=== PATIENT | male | born 1950 | race Caucasian/White ===

== ENCOUNTER 2022-10-03 07:46 | Outpatient (OUT) | payer MEDICARE, OTHER, SELFPAY ==
--- NOTE | 2022-10-03 07:57 | US_ITS ---
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 FINDINGS: Proximal aorta: 3.1 cm maximum diameter. Mid aorta: 2.5 cm Distal aorta: 2.4 cm Common iliac arteries: 2.4 cm diameter on right, 2.2 cm on left. IMPRESSION: 1. No aortic aneurysm. 2. 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 Electronically authenticated by: FLO VELASQUEZ Date: 10/03/2022 09:40
== END 2022-10-03 07:47 ==
LOC: US 07:51
PROVIDERS: PCP Nurse Practitioner Family; Visit Provider Nurse Practitioner Family
DX: Q25.40 Congenital malformation of aorta unspecified (principal)
CPT/HCPCS: 76706

== ENCOUNTER 2022-10-08 08:52 | Outpatient (OUT) | payer MEDICARE, OTHER, SELFPAY ==
[2022-10-08 10:30] LABS: Prostate Specific Antigen Scrn 0.74 ng/mL (<=4.00)
== END 2022-10-08 08:53 | disposition home or self-care (01) ==
LOC: LAB 08:53
PROVIDERS: PCP Nurse Practitioner Family; Visit Provider Nurse Practitioner Family
DX: Z12.5 Encounter for screening for malignant neoplasm of prostate (principal)
CPT/HCPCS: 36415; G0103

== ENCOUNTER 2022-10-23 08:10 | Outpatient (OUT) | payer MEDICARE, OTHER, SELFPAY ==
[2022-10-23 09:02] LABS: Basophils Absolute Auto 0.1 10^3/uL (0.0-0.1); Eosinophils Absolute Auto 0.1 10^3/uL (0.0-0.7); Eosinophils Percent Auto 1.9 % (0.9-7.0); Hematocrit 44.8 % (42.0-54.0); Hemoglobin 15.4 g/dL (14.0-18.0); Immature Granulocytes Abs Auto 0.04 10^3/uL (0.00-0.03); Immature Granulocytes Pct Auto 0.6 % (0.0-0.5); Lymphocytes Absolute Auto 2.3 10^3/uL (1.2-3.8); Lymphocytes Percent Auto 33.6 % (20.5-60.0); Mean Corpuscular HGB Conc 34.4 g/dL (29.9-35.2); Mean Corpuscular Hemoglobin 28.5 pg (25.9-34.0); Mean Platelet Volume 8.8 fL (9.5-13.5); Monocytes Absolute Auto 0.4 10^3/uL (0.3-0.8); Monocytes Percent Auto 6.3 % (1.7-12.0); Neutrophils Absolute Auto 3.9 10^3/uL (1.4-6.5); Neutrophils Percent Auto 56.6 % (43.0-75.0); Platelet Count 126 10^3/uL (150-450); Red Cell Distribution Width 13.6 % (11.0-15.0); White Blood Count 6.8 10^3/uL (4.0-11.0)
[2022-10-23 10:39] LABS: Creatinine Urine Random 118.16 mg/dL (20.00-300.00); Microalbumin Urine Random <1.3 mg/dL (<=30.0)
[2022-10-23 10:55] LABS: Alanine Aminotransferase 41 U/L (16-63); Albumin Globulin Ratio 1.3; Albumin Level 4.2 g/dL (3.4-5.0); Alkaline Phosphatase 79 U/L (46-116); Anion Gap 14.6; Aspartate Amino Transferase 28 U/L (15-37); BUN Creatinine Ratio 14.3; Bilirubin Total 1.1 mg/dL (0.2-1.0); Calcium 8.9 mg/dL (8.5-10.1); Carbon Dioxide 24.7 mmol/L (21.0-32.0); Chloride 105 mmol/L (98-107); Estimated GFR (African America >60 (>=60); Estimated GFR (Non-African Ame >60 (>=60); Globulin 3.3 g/dL; Glucose 105 mg/dL (74-106); Potassium 4.3 mmol/L (3.5-5.1); Sodium 140 mmol/L (136-145); Total Protein 7.5 g/dL (6.4-8.2)
[2022-10-23 11:03] LABS: Chol HDL Ratio 3.5; Cholesterol 135 mg/dL (<=200); HDL Cholesterol 39 mg/dL (40-60); Thyroid Stimulating Hormone 2.064 uIU/mL (0.358-3.740); Triglycerides 189 mg/dL (<=150); VLDL CHOLESTEROL 37.8 mg/dL
[2022-10-24 05:08] LABS: Vitamin B12 576 pg/mL (232-1245)
== END 2022-10-23 08:11 | disposition home or self-care (01) ==
LOC: LAB 08:12
PROVIDERS: PCP Nurse Practitioner Family; Visit Provider Nurse Practitioner Family
DX: R73.03 Prediabetes (principal); E78.2 Mixed hyperlipidemia
CPT/HCPCS: 36415; 80053; 80061; 82043; 82570; 82607; 82746; 84443; 85025

== ENCOUNTER 2023-01-15 09:02 | Outpatient (OUT) | payer MEDICARE, OTHER, SELFPAY ==
--- NOTE | 2023-01-15 09:11 | ECG_ITS ---
The [facility] Test Date: 2023-01-15 Pat Name: RACHEL HENRY Department: Room: - Gender: Male Manager Reading: : 1950 Requested By: TANNER HUERTA Order Number: [id number] Reading MD: SUZIE MCKEON Measurements Intervals [place] Rate: 62 P: 0 KS: 168 QRS: 44 QRSD: 103 T: 31 QT: 386 QTc: 393 Interpretive Statements SINUS RHYTHM No previous ECG available for comparison Electronically Signed On 01-16-2023 6:50:50 EDT by SUZIE MCKEON
--- NOTE | 2023-01-15 10:04 | P.GSHP_ITS ---
History of Present Illness History of Present Illness Chief complaint: BPH W/ OBSTRUCTION Narrative: Patient presents for preadmission testing. Patient reports incomplete bladder emptying, frequency and urgency with urination. He denies hematuria, dysuria, fever, nausea, vomiting, or any other complaints. Review of Systems ROS Narrative REVIEW OF SYSTEMS: Negative except as stated in HPI, ten or more systems reviewed. Constitutional: No fever , chills, weakness ENT: No sore throat or epistaxis Cardiovascular: No edema, chest pain, or palpitations Respiratory: Admits to dyspnea on exertion Musculoskeletal: No joint pain or swelling Gastrointestinal: No abdominal pain, constipation, diarrhea, or vomiting Genitourinary: No dysuria or hematuria Neurological: No numbness, tingling, weakness, or headache Psychiatric: No mood changes PFSH PFSH Medical History (Updated 01/15/23 @ 09:34 by Lorena Xie NP) Anxiety ?F41.9 - Anxiety disorder, unspecified (ICD-10) Arthritis ?M19.90 - Unspecified osteoarthritis, unspecified site (ICD-10) Asthma ?J45.909 - Unspecified asthma, uncomplicated (ICD-10) Back pain ?M54.9 - Dorsalgia, unspecified (ICD-10) BPH (benign prostatic hyperplasia) ?N40.0 - Benign prostatic hyperplasia without lower urinary tract symptoms (ICD-10) BPH with obstruction/lower urinary tract symptoms ?N40.1 - Benign prostatic hyperplasia with lower urinary tract symptoms (ICD- 10) ?N13.8 - Other obstructive and reflux uropathy (ICD-10) COVID-19 ?U07.1 - COVID-19 (ICD-10) Depression ?F32.A - Depression, unspecified (ICD-10) Dyspnea on exertion ?R06.09 - Other forms of dyspnea (ICD-10) High cholesterol ?E78.00 - Pure hypercholesterolemia, unspecified (ICD-10) Neck pain ?M54.2 - Cervicalgia (ICD-10) Prediabetes ?R73.03 - Prediabetes (ICD-10) Sleep apnea ?G47.30 - Sleep apnea, unspecified (ICD-10) Surgical History (Updated 01/15/23 @ 09:34 by Lorena Xie NP) H/O uvulectomy ?Z90.89 - Acquired absence of other organs (ICD-10) History of arthroplasty of knee ?Z96.659 - Presence of unspecified artificial knee joint (ICD-10) History of arthroscopy of knee ?Z98.890 - Other specified postprocedural states (ICD-10) History of cataract extraction ?Z98.49 - Cataract extraction status, unspecified eye (ICD-10) History of colonoscopy ?Z98.890 - Other specified postprocedural states (ICD-10) History of nasal septoplasty ?Z98.890 - Other specified postprocedural states (ICD-10) History of surgical removal of lesion ?Z98.890 - Other specified postprocedural states (ICD-10) ?Z87.2 - Personal history of diseases of the skin and subcutaneous tissue (ICD-10) History of tonsillectomy ?Z90.89 - Acquired absence of other organs (ICD-10) Family History (Updated 01/15/23 @ 09:34 by Lorena Xie NP) Other Family history of bone cancer Family history of breast cancer Family history of heart disease Family history of hypertension Family history of myocardial infarction Social History (Updated 01/15/23 @ 09:27 by Lorena Xie NP) Within the past year, how often did you have a drink containing alcohol: never Score interpretation: A score less than 4 is consistent with normal alcohol consumption. Smoking status: Former smoker Non-prescribed substance use: denies use Highest level of school completed/degree received: high school graduate Meds Home Medications and Allergies Home Medications Medication Instructions Recorded Confirmed Type acetaminophen 325 mg tablet 650 mg PO Q6H PRN pain 01/15/23 01/15/23 History (Tylenol) albuterol sulfate 90 mcg/actuation 2 inh inhalation Q4H PRN shortness 01/15/23 01/15/23 History aerosol inhaler (ProAir HFA) of breath or wheezing ascorbic acid (vitamin C) 1,000 mg 1 g PO DAILY 01/15/23 01/15/23 History capsule atorvastatin 80 mg tablet 80 mg PO DAILY 01/15/23 01/15/23 History buspirone 30 mg tablet 30 mg PO BID 01/15/23 01/15/23 History cholecalciferol (vitamin D3) 125 125 mcg PO DAILY 01/15/23 01/15/23 History mcg (5,000 unit) capsule ezetimibe 10 mg tablet 10 mg PO DAILY 01/15/23 01/15/23 History finasteride 5 mg tablet 5 mg PO DAILY 01/15/23 01/15/23 History fluticasone furoate 100 1 inh inhalation DAILY 01/15/23 01/15/23 History mcg-vilanterol 25 mcg/dose inhalation powder (Breo Ellipta) ibuprofen 400 mg tablet (IBU) 400 mg PO TID-QID PRN pain 01/15/23 01/15/23 History sertraline 100 mg tablet 100 mg PO DAILY 01/15/23 01/15/23 History tamsulosin 0.4 mg capsule (Flomax) 0.4 mg PO DAILY 01/15/23 01/15/23 History vitamin E 670 mg (1,000 unit) 670 mg PO DAILY 01/15/23 01/15/23 History capsule Allergies Allergy/AdvReac Type Severity Reaction Status Date / Time doxazosin [From Cardura] Allergy lip Verified 01/15/23 09:25 swelling Exam Narrative Exam Narrative: Constitutional: Awake, alert, comfortable, well-appearing, nontoxic, interactive, vital signs as charted Head: Normocephalic, atraumatic Neck: Supple, normal appearance, normal range of motion, no meningeal signs, no lymphadenopathy Respiratory: No respiratory distress, breath sounds clear, Pursed lip breathing noted Cardiovascular: Regular rate and rhythm, strong and regular heart tones Abdomen: Nontender, normal bowel sounds, soft, no CVA tenderness Musculoskeletal: Normal gait, no swelling or edema Skin: No rashes or induration, no lesions, only visible skin inspected Neuro: No neurological deficits, normal sensation Psychiatric: Oriented ?3, normal affect Assessment and Plan Assessment and Plan (1) BPH with obstruction/lower urinary tract symptoms: Plan Cystoscopy, transurethral resection of the prostate scheduled with Dr. Sinha 02/07/2023.
[2023-01-15 10:11] LABS: Basophils Absolute Auto 0.1 10^3/uL (0.0-0.1); Basophils Percent Auto 1.2 % (0.2-2.0); Eosinophils Absolute Auto 0.2 10^3/uL (0.0-0.7); Eosinophils Percent Auto 2.5 % (0.9-7.0); Hematocrit 43.7 % (42.0-54.0); Hemoglobin 14.9 g/dL (14.0-18.0); Immature Granulocytes Abs Auto 0.07 10^3/uL (0.00-0.03); Lymphocytes Absolute Auto 2.3 10^3/uL (1.2-3.8); Mean Corpuscular HGB Conc 34.1 g/dL (29.9-35.2); Mean Corpuscular Hemoglobin 29.1 pg (25.9-34.0); Mean Corpuscular Volume 85.4 fL (80.0-94.0); Mean Platelet Volume 9.2 fL (9.5-13.5); Monocytes Absolute Auto 0.5 10^3/uL (0.3-0.8); Monocytes Percent Auto 7.1 % (1.7-12.0); Neutrophils Absolute Auto 4.2 10^3/uL (1.4-6.5); Neutrophils Percent Auto 57.2 % (43.0-75.0); Platelet Count 126 10^3/uL (150-450); Red Blood Count 5.12 10^6/uL (4.70-6.10); Red Cell Distribution Width 13.4 % (11.0-15.0); White Blood Count 7.3 10^3/uL (4.0-11.0)
[2023-01-15 10:21] LABS: INR 1.03; Prothrombin Time 10.9 sec (9.0-11.6)
[2023-01-15 11:52] LABS: Calcium 8.7 mg/dL (8.5-10.1); Carbon Dioxide 25.9 mmol/L (21.0-32.0); Chloride 104 mmol/L (98-107); Estimated GFR (African America >60 (>=60); Estimated GFR (Non-African Ame >60 (>=60); Glucose 100 mg/dL (74-106); Potassium 3.9 mmol/L (3.5-5.1); Sodium 139 mmol/L (136-145)
== END 2023-01-15 09:03 | disposition home or self-care (01) ==
LOC: PST 09:06
PROVIDERS: PCP Nurse Practitioner Family; Visit Provider Urology
DX: Z01.810 Encounter for preprocedural cardiovascular examination (principal); Z01.812 Encounter for preprocedural laboratory examination; N40.1 Benign prostatic hyperplasia with lower urinary tract symptoms; J45.909 Unspecified asthma, uncomplicated; F32.A Depression, unspecified; M19.90 Unspecified osteoarthritis, unspecified site; E78.5 Hyperlipidemia, unspecified; F41.9 Anxiety disorder, unspecified
CPT/HCPCS: 80048; 85025; 85610; 85730; 93005; G0463

== ENCOUNTER 2023-01-25 09:48 | Outpatient (OUT) | payer MEDICARE, OTHER, SELFPAY ==
--- NOTE | 2023-01-25 | US_ITS ---
The [address] [address] Patient Name: RACHEL HENRY MRN: [id number] date: 1950 Sex: M Assigned Patient Location: US Current Patient Location: US Accession/Order Number: [id number] Exam Date: 01/25/2023 10:07 Report Date: 01/25/2023 15:02 At the request of: NON-STAFF PHYSICIAN Procedure: US abdomen limited EXAMINATION: US abdomen limited HISTORY: D69.6 COMPARISON: No relevant comparison available. TECHNIQUE: Transabdominal evaluation of the right upper quadrant. FINDINGS: LIVER: Several small hypoechoic areas near gallbladder fossa likely representing areas of fat sparing. Color Doppler demonstrates patent hepatic veins. PORTAL VEIN: Duplex Doppler demonstrates normal hepatopetal flow pattern with flow velocity averaging 24 cm/s. GALLBLADDER: Wall thickness is upper limits of normal, 3 mm. No visible gallstones or pericholecystic free fluid. Negative sonographic Arias's sign. BILIARY: No abnormal dilation or stones. Common bile duct diameter is within normal limits. PANCREASE: No visible mass, abnormal atrophy, or duct dilation. SPLEEN: Normal size, contour, and echotexture. KIDNEYS: 5.1 cm cyst within superior pole left kidney favoring benign etiology. Unremarkable right kidney. No hydronephrosis. No visible mass or stones. US/US abdomen limited IMPRESSION: 1. No suspicious findings within the right or left upper quadrant with specific attention to the liver and spleen. Electronically authenticated by: FLO VELASQUEZ Date: 01/25/2023 15:02
== END 2023-01-25 09:49 | disposition home or self-care (01) ==
PROVIDERS: PCP Nurse Practitioner Family
DX: D69.6 Thrombocytopenia, unspecified (principal); N28.1 Cyst of kidney, acquired
CPT/HCPCS: 76705

== ENCOUNTER 2023-03-14 12:33 | Outpatient (OUT) | payer MEDICARE, OTHER, SELFPAY ==
[2023-03-14 13:15] LABS: Basophils Absolute Auto 0.1 10^3/uL (0.0-0.1); Basophils Percent Auto 0.5 % (0.2-2.0); Eosinophils Absolute Auto 0.1 10^3/uL (0.0-0.7); Eosinophils Percent Auto 0.9 % (0.9-7.0); Hematocrit 39.7 % (42.0-54.0); Hemoglobin 13.4 g/dL (14.0-18.0); Immature Granulocytes Abs Auto 0.26 10^3/uL (0.00-0.03); Immature Granulocytes Pct Auto 2.2 % (0.0-0.5); Lymphocytes Absolute Auto 2.2 10^3/uL (1.2-3.8); Lymphocytes Percent Auto 18.9 % (20.5-60.0); Mean Corpuscular HGB Conc 33.8 g/dL (29.9-35.2); Mean Corpuscular Hemoglobin 28.6 pg (25.9-34.0); Mean Corpuscular Volume 84.8 fL (80.0-94.0); Mean Platelet Volume 8.8 fL (9.5-13.5); Monocytes Percent Auto 8.4 % (1.7-12.0); Neutrophils Percent Auto 69.1 % (43.0-75.0); Platelet Count 165 10^3/uL (150-450); Red Blood Count 4.68 10^6/uL (4.70-6.10); Red Cell Distribution Width 13.3 % (11.0-15.0); White Blood Count 11.6 10^3/uL (4.0-11.0)
--- NOTE | 2023-03-14 13:24 | P.GSHP_ITS ---
History of Present Illness History of Present Illness Chief complaint: bph Narrative: Patient presents for preadmission testing. Patient reports incomplete bladder emptying, frequency and urgency with urination. He denies hematuria, dysuria, fever, nausea, vomiting, or any other complaints. The patient was diagnosed with thrombocytopenia since his last visit here on 01/15/2023, he has been cleared by hematology. The patient had a positive home COVID test on 03/07/2023 with symptoms of cough and congestion as well as fatigue. The patient states the symptoms have now resolved. Review of Systems ROS Narrative REVIEW OF SYSTEMS: Negative except as stated in HPI, ten or more systems reviewed. Constitutional: No fever , chills, weakness ENT: No sore throat or epistaxis Cardiovascular: No edema, chest pain, or palpitations Respiratory: Chronic dyspnea on exertion Musculoskeletal: No joint pain or swelling Gastrointestinal: No abdominal pain, constipation, diarrhea, or vomiting Genitourinary: No dysuria or hematuria Neurological: No numbness, tingling, weakness, or headache Psychiatric: No mood changes PFSH PFSH Medical History (Updated 03/14/23 @ 13:21 by Lorena Xie NP) Anxiety ?F41.9 - Anxiety disorder, unspecified (ICD-10) Arthritis ?M19.90 - Unspecified osteoarthritis, unspecified site (ICD-10) Asthma ?J45.909 - Unspecified asthma, uncomplicated (ICD-10) Back pain ?M54.9 - Dorsalgia, unspecified (ICD-10) BPH (benign prostatic hyperplasia) ?N40.0 - Benign prostatic hyperplasia without lower urinary tract symptoms (ICD-10) BPH with obstruction/lower urinary tract symptoms ?N40.1 - Benign prostatic hyperplasia with lower urinary tract symptoms (ICD- 10) ?N13.8 - Other obstructive and reflux uropathy (ICD-10) COVID-19 ?U07.1 - COVID-19 (ICD-10) COVID-19 (03/07/23) ?U07.1 - COVID-19 (ICD-10) Depression ?F32.A - Depression, unspecified (ICD-10) Dyspnea on exertion ?R06.09 - Other forms of dyspnea (ICD-10) High cholesterol ?E78.00 - Pure hypercholesterolemia, unspecified (ICD-10) Neck pain ?M54.2 - Cervicalgia (ICD-10) Prediabetes ?R73.03 - Prediabetes (ICD-10) Sleep apnea ?G47.30 - Sleep apnea, unspecified (ICD-10) Thrombocytopenia ?D69.6 - Thrombocytopenia, unspecified (ICD-10) Surgical History (Updated 01/15/23 @ 09:34 by Lorena Xie NP) H/O uvulectomy ?Z90.89 - Acquired absence of other organs (ICD-10) History of arthroplasty of knee ?Z96.659 - Presence of unspecified artificial knee joint (ICD-10) History of arthroscopy of knee ?Z98.890 - Other specified postprocedural states (ICD-10) History of cataract extraction ?Z98.49 - Cataract extraction status, unspecified eye (ICD-10) History of colonoscopy ?Z98.890 - Other specified postprocedural states (ICD-10) History of nasal septoplasty ?Z98.890 - Other specified postprocedural states (ICD-10) History of surgical removal of lesion ?Z98.890 - Other specified postprocedural states (ICD-10) ?Z87.2 - Personal history of diseases of the skin and subcutaneous tissue (ICD-10) History of tonsillectomy ?Z90.89 - Acquired absence of other organs (ICD-10) Family History (Updated 01/15/23 @ 09:34 by Lorena Xie NP) Other Family history of bone cancer Family history of breast cancer Family history of heart disease Family history of hypertension Family history of myocardial infarction Social History (Updated 01/15/23 @ 09:27 by Lorena Xie NP) Within the past year, how often did you have a drink containing alcohol: never Score interpretation: A score less than 4 is consistent with normal alcohol consumption. Smoking status: Former smoker Non-prescribed substance use: denies use Highest level of school completed/degree received: high school graduate Meds Home Medications and Allergies Home Medications Medication Instructions Recorded Confirmed Type acetaminophen 325 mg tablet 650 mg PO Q6H PRN pain 01/15/23 01/15/23 History (Tylenol) albuterol sulfate 90 mcg/actuation 2 inh inhalation Q4H PRN shortness 01/15/23 01/15/23 History aerosol inhaler (ProAir HFA) of breath or wheezing ascorbic acid (vitamin C) 1,000 mg 1 g PO DAILY 01/15/23 03/14/23 History capsule atorvastatin 80 mg tablet 80 mg PO DAILY 01/15/23 01/15/23 History buspirone 30 mg tablet 30 mg PO BID 01/15/23 01/15/23 History cholecalciferol (vitamin D3) 125 125 mcg PO DAILY 01/15/23 03/14/23 History mcg (5,000 unit) capsule ezetimibe 10 mg tablet 10 mg PO DAILY 01/15/23 01/15/23 History finasteride 5 mg tablet 5 mg PO DAILY 01/15/23 01/15/23 History fluticasone furoate 100 1 inh inhalation DAILY 01/15/23 01/15/23 History mcg-vilanterol 25 mcg/dose inhalation powder (Breo Ellipta) ibuprofen 400 mg tablet (IBU) 400 mg PO TID-QID PRN pain 01/15/23 01/15/23 History sertraline 100 mg tablet 100 mg PO DAILY 01/15/23 01/15/23 History tamsulosin 0.4 mg capsule (Flomax) 0.4 mg PO DAILY 01/15/23 01/15/23 History vitamin E 670 mg (1,000 unit) 670 mg PO DAILY 01/15/23 03/14/23 History capsule Allergies Allergy/AdvReac Type Severity Reaction Status Date / Time doxazosin [From Cardura] Allergy lip Verified 01/15/23 09:25 swelling Exam Narrative Exam Narrative: Constitutional: Awake, alert, comfortable, well-appearing, nontoxic, interactive, vital signs as charted Head: Normocephalic, atraumatic Neck: Supple, normal appearance, normal range of motion, no meningeal signs, no lymphadenopathy Respiratory: No respiratory distress, breath sounds clear, Pursed lip breathing noted, No tachypnea Cardiovascular: Regular rate and rhythm, strong and regular heart tones Abdomen: Nontender, normal bowel sounds, soft, no CVA tenderness Musculoskeletal: Normal gait, no swelling or edema Skin: No rashes or induration, no lesions, only visible skin inspected Neuro: No neurological deficits, normal sensation Psychiatric: Oriented ?3, normal affect Assessment and Plan Assessment and Plan (1) BPH with obstruction/lower urinary tract symptoms: Plan Cystoscopy, transurethral resection of the prostate scheduled with Dr. Sinha 03/21/2023.
[2023-03-14 13:33] LABS: INR 1.02; Partial Thromboplastin Time 33.4 sec (22.3-36.2); Prothrombin Time 10.8 sec (9.0-11.6)
[2023-03-14 13:50] LABS: Anion Gap 12.7; BUN Creatinine Ratio 12.6; Calcium 8.5 mg/dL (8.5-10.1); Chloride 103 mmol/L (98-107); Estimated GFR (African America >60 (>=60); Estimated GFR (Non-African Ame >60 (>=60); Glucose 96 mg/dL (74-106); Potassium 3.7 mmol/L (3.5-5.1); Sodium 138 mmol/L (136-145)
== END 2023-03-14 12:34 | disposition home or self-care (01) ==
LOC: PST 12:34
PROVIDERS: PCP Nurse Practitioner Family; Visit Provider Urology
DX: Z01.812 Encounter for preprocedural laboratory examination (principal); N40.1 Benign prostatic hyperplasia with lower urinary tract symptoms
CPT/HCPCS: 80048; 85025; 85610; 85730; G0463

== ENCOUNTER 2023-04-03 12:20 | Outpatient (OUT) | payer MEDICARE, OTHER, SELFPAY ==
--- OUTSIDE RECORDS SUMMARY | 2023-04-03 12:39 | XMS_ITS | CCD ---
Author Name Unknown Address [address] [facility] [address] [facility] [address] [place] [address] Organization [facility] Care Team Providers Care Manganese Breaker Name Role Phone REQUEST, DR NONE LISTED Attending Unavaila ble REQUEST, NONE LISTED Consulting Unavaila ble REQUEST, NONE LISTED Admitting Unavaila ble KAPFORREST, PATRICA Primary Care Unavailable PATRICA CRUZ Attending Unavailable KAPPATRICA CLAYTON Primary Care Unavailable ANTHONY, PATRICA Admitting Unavailable MIGUEL WESTFALL, DR WILL Carmichael Consulting Unavailabl e MIGUEL WESTFALL, DR WILL Carmichael Admitting Unavailabl e ANTHONY, PATRICA Primary Care Unavailable MIGUEL WESTFALL, DR WILL Carmichael Attending Unavailabl e KAPLE, PATRICA Consulting Unavailable KAPFORREST, PATRICA Primary Care Unavailable KAPFORREST, PATRICA Admitting Unavailable KAPPATRICA CLAYTON Attending Unavailable REQUEST, NONE LISTED Admitting Unavaila ble REQUEST, NONE LISTED Attending Unavaila ble REQUEST, NONE LISTED Consulting Unavaila ble ANTHONY, PATRICA Primary Care Unavailable PATRICA CRUZ Primary Care Physician [phone] Patrica Cruz Unavailable KapNimisha claytonPatrica Unavailable Anthony, GUICHO Patrica Primary Care Provider MD Genaro Sheldon Attending Provider Genaro Sheldon Attending Unavailable Genaro Sheldon Admitting Unavailable Patrica Cruz Primary Care Unavailable Unavailable Primary Care Provider Unavailabl e BERNARDINO CLIFTONRA Referring Unavailable BERNARDINO CLIFTONRA Attending Unavailable KESHA CLIFTON Attending Unavailable Elia HUERTA Attending Unavailable Elia HUERTA Attending Unavailable Elia HUERTA Attending Unavailable Elia HUERTA Attending Unavailable Elia HUERTA Attending Unavailable Elia HUERTA Admitting Unavailable Elia HUERTA Referring Unavailable Elia HUERTA Attending Unavailable Elia HUERTA Attending Unavailable Allergies Allergy Classification Reported Allergen(s) Allergy Type Date of Onset Reaction(s) Facility Adrenergic Antagonists (2 sources) Doxazosin Drug Allergy 5 [facility] Repository (19 sources) Doxazosin; Translations: [doxazosin] Drug Allergy 3 Anaphylaxis (disorder), anaphylaxis [employer] Other Medications Current Medications Medication Drug Class(es) Dates Sig (Normalized) Sig (Original) acetaminophen 500 mg oral tablet (17 sources) Start: 06-26-2019 take 1 mg by mouth every six hours acetaminophen 500 mg Tab mg tab(s), Oral, q6hr, Refills(s) 0 Start Date: 06/26/19 Status: Ordered take 1 capsule by mouth every si x hours Acetaminophen 500 MG 1 capsule as needed Orally every 6 hrs Active Comment on above: Take 500 mg by mouth every 6 hours as needed. [id number] actuat albuterol 0.09 mg/actuat metered dose inhaler (14 sources) beta2-Adrenergic Agonist Albuter ol Sulfate HFA 108 (90 Base) MCG/ACT TAKE 2 PUFFS NEEDED EVERY 4 HOUR FOR SHORTNESS OF BREATH, WHEEZING, OR COUGH for 30 Active Albuterol Sulfat e HFA 108 (90 Base) MCG/ACT TAKE 2 PUFFS NEEDED EVERY 4 HOUR FOR SHORTNESS OF BREATH, WHEEZING, OR COUGH for 30 Active albuterol HFA (V ENTOLIN HFA) 90 mcg/actuation inhaler Inhale 2 Puffs as instructed. 0 Active Albuterol Sulfat e HFA 108 (90 Base) MCG/ACT TAKE 2 PUFFS NEEDED EVERY 4 HOUR FOR SHORTNESS OF BREATH, WHEEZING, OR COUGH for 30 Active Ventolin HFA prn Active Comment on above: Inhale 2 Puffs as in structed. atorvastatin 80 mg oral tablet (17 sources) HMG-CoA Reductase Inhibitor Start: 06-26-2019 take 1 tablet by mouth once daily atorvastatin 80 mg Tab 80 mg = 1 tab(s), Oral, Daily, # 30 tab(s), Refills(s) 0 Start Date: 06/26/19 Status: Ordered Comment on above: Take 80 mg by mouth once daily. azithromycin 250 mg oral tablet (2 sources) Macrolide Antimicrobial Start: 03-19-2023 Zithromax Z-Arya 250 MG 2 tablets on the first day, then 1 tablet daily for 4 days Orally Once a day for 5 day(s) Mar, Active BIPAP Machine Auto Pap Peak 20 PS 4 min 8 (11 sources) Start: 10-27-2013 BIPAP Machine Auto Pap Peak 20 PS 4 min 8 as directed nightly for Download 1 month, fax to office Oct, Active Breo Ellipta 200 mcg-25 mcg/inh inhalation powder (3 sources) Start: 06-26-2019 take 1 puff(s) by inhalation once daily Breo Ellipta 200 mcg-25 mcg/inh inhalation powder puff(s), Inhalation, Daily, Refill(s) 0 Start Date: 06/26/19 Status: Ordered busPIRone hydrochloride 30 mg oral tablet (17 sources) Start: 08-14-2016 take 1 tablet by mouth twice daily busPIRone 30 mg oral tablet 30 mg = 1 tab(s), Oral, BID, # 60 tab(s), Refills(s) 0 Start Date: 06/26/19 Status: Ordered take 1 tablet by mouth once abel y busPIRone HCl 30 mg tablet Take 30 mg by mouth once daily. 0 Active Comment on above: Take 30 mg by mouth once daily. ezetimibe 10 mg oral tablet (17 sources) Dietary Cholesterol Absorption Inhibitor Start: 06-26-2019 take 1 tablet by mouth once daily Zetia 10 mg Tab 10 mg = 1 tab(s), Oral, Daily, # 30 tab(s), Refills(s) 0 Start Date: 06/26/19 Status: Ordered Comment on above: Take 10 mg by mouth once daily. ferrous sulfate 325 mg oral tablet (6 sources) Start: 06-26-2019 take 1 mg by mouth three times daily ferrous sulfate 325 mg Tab mg tab(s), Oral, TID, Refills(s) 0 Start Date: 06/26/19 Status: Ordered take 1 tablet by mouth once abel y ferrous sulfate 325 mg (65 mg iron) tablet Take 325 mg by mouth once daily. 0 Active Comment on above: Take 325 mg by mouth once daily. finasteride 5 mg oral tablet (17 sources) 5-alpha Reductase Inhibitor Start: 09-05-2021 take 1 tablet by mouth once daily finasteride 5 mg Tab 5 mg = 1 tab(s), Oral, Daily, # 90 tab(s), Refills(s) 3, Pharmacy: [facility]/pharmacy #[id number], 174, cm, 09/05/21 10:55:00 EDT, Height/Length Dosing, 109.1, kg, 09/05/21 10:55:00 EDT, Weight Dosing Start Date: 09/05/21 Status: Ordered Comment on above: Take 5 mg by mouth o nce daily. 30 actuat fluticasone furoate 0.2 mg/actuat / vilanterol 0.025 mg/actuat dry powder inhaler (14 sources) Corticosteroid, beta2-Adrenergic Agonist take 1 puff(s) by inhalation once daily Breo Ellipta 200-25 MCG/ACT INHALE 1 PUFF INTO THE LUNGS EVERY DAY for 30 Active fluticasone-marino nterol (BREO ELLIPTA) 200-25 mcg/dose inhaler Inhale 1 Inhalation as instructed once daily. 0 Active Comment on above: Inhale 1 Inhalation as instructed once daily. Ibuprofen (11 sources) Nonsteroidal Anti-inflammatory Drug Ibuprofen Active sertraline 100 mg oral tablet (17 sources) Serotonin Reuptake Inhibitor Start: 0 take 1 mg by mouth once daily sertraline 100 mg Tab mg tab(s), Oral, Daily, Refills(s) 0 Start Date: 06/26/19 Status: Ordered take 1 tablet by mouth twice shawn ly Sertraline HCl 100 MG TAKE 1 TABLET BY MOUTH TWICE A DAY for 90 Active Comment on above: Take 100 mg by mouth once daily. tamsulosin hydrochloride 0.4 mg oral capsule (17 sources) alpha-Adrenergic Desirae Start: 09-05-2021 take 1 capsule by mouth once daily tamsulosin 0.4 mg Cap 0.4 mg = 1 cap(s), Oral, Daily, # 90 cap(s), Refills(s) 3, Pharmacy: [facility]/pharmacy #[id number], 174, cm, 09/05/21 10:55:00 EDT, Height/Length Dosing, 109.1, kg, 09/05/21 10:55:00 EDT, Weight Dosing Start Date: 08/19/22 Status: Ordered Comment on above: Take 0.4 mg by mouth once daily. Ventolin HFA 90 mcg/inh Aerosol (3 sources) Start: 06-26-2019 take 1 puff(s) by inhalation every six hours Ventolin HFA 90 mcg/inh Aerosol puff(s), Inhalation, q6hr, Refill(s) 0 Start Date: 06/26/19 Status: Ordered {20 (nirmatrelvir 150 MG Oral Tablet) / 10 (ritonavir 100 MG Oral Tablet) } Pack [Paxlovid 5-Day] (1 source) Start: 12-15-2021 Paxlovid 20 x 150 MG & 10 x 100MG as directed Orally as directed BID x 5 days for 5 days Dec, Active Completed/Discontinued Medications Medication Drug Class(es) Dates Sig (Normalized) Sig (Original) cephalexin 500 mg oral tablet (3 sources) Cephalosporin Antibacterial Start: 08-22-2020 take 1 tablet by mouth every eight hours Cephalexin 500 MG 1 tablet Orally every 8 hrs for 7 days August, Not-Taking ciprofloxacin 500 mg oral tablet (2 sources) Quinolone Antimicrobial Start: 11-12-2022 take 1 tablet by mouth once daily Cipro 500 mg Tab 500 mg = 1 tab(s), Oral, Daily, take one tab day before procedure and one tab after procedure, # 2 tab(s), Refills(s) 0, Pharmacy: [facility]/pharmacy #[id number], 174, cm, 11/12/22 12:36:00 EDT, Height/Length Dosing, 112, kg, 11/12/22 12:36:00 EDT, Weight Dosing Start Date: 11/12/22 Status: Ordered guaiFENesin (2 sources) Mucinex Not-Taking/PRN Mucinex Active Problems Active Problems Problem Classification Problem Date Documented Da te Episodic/Chronic Anxiety disorders (19 sources) Generalized anxiety disorder; Translations: [Generalized anxiety disorder] Onset: 02-22-2021 Resolved: 08-24-2021 06-26-2019 Chronic Asthma (20 sources) Asthma; Translations: [Unspecified asthma, uncomplicated] Onset: 02-22-2021 Resolved: 08-24-2021 06-26-2019 Chronic Cardiac and circulatory congenital anomalies (13 sources) Congenital malformation of aorta unspecified; Translations: [Abnormality of abdominal aorta] Onset: 02-22-2021 Resolved: 08-24-2021 Chronic Chronic obstructive pulmonary disease and bronchiectasis (1 source) Bronchitis, not specified as acute or chronic Episodic Coagulation and hemorrhagic disorders (14 sources) Platelet count below reference range; Translations: [Thrombocytopenia, unspecified] Onset: 02-22-2021 Resolved: 02-22-2021 Chronic Diabetes mellitus without complication (4 sources) Newly diagnosed diabetes; Translations: [Type 2 diabetes mellitus without complications] Chronic Diabetes mellitus without complication (19 sources) Prediabetes; Translations: [Prediabetes] Onset: 09-08-2020 Resolved: 08-24-2021 06-26-2019 Episodic Disorders of lipid metabolism (20 sources) Pure hypercholesterolemi a, unspecified; Translations: [Hyperlipidemia] Onset: 09-07-2009 Resolved: 08-24-2021 Chronic Genitourinary symptoms and ill-defined conditions (6 sources) Incontinence; Translations: [Post-micturition incontinence ] 07-08-2019 Chronic Genitourinary symptoms and ill-defined conditions (15 sources) Nocturia; Translations: [Nocturia] Onset: 09-05-2021 Episodic Hyperplasia of prostate (20 sources) Benign prostatic hyperplasia with lower urinary tract symptoms; Translations: [Benign prostatic hypertrophy with outflow obstruction] Onset: 08-31-2020 Resolved: 08-24-2021 Chronic Immunizations and screening for infectious disease (1 source) Encounter for immunization Episodic Mood disorders (19 sources) Recurrent major depressive episodes, moderate ; Translations: [Major depressive disorder, recurrent, moderate] Onset: 02-22-2021 Resolved: 08-24-2021 06-26-2019 Chronic Osteoarthritis (3 sources) Arthritis 07-01-2019 Chronic Other circulatory disease (1 source) Elevated blood-pressure reading, without diagnosis of hypertension Episodic Other diseases of kidney and ureters (1 source) Urinary tract obstruction; Translations: [Other obstructive and reflux uropathy] Onset: 12-25-2022 Episodic Other non-epithelial cancer of skin (11 sources) Basal cell carcinoma of skin; Translations: [Basal cell carcinoma of skin, unspecified] Episodic Other nutritional; endocrine; and metabolic disorders (20 sources) Body mass index 30+ - obesity; Translations: [Body mass index (BMI) 36.0-36.9, adult] Chronic Other nutritional; endocrine; and metabolic disorders (2 sources) Body mass index (BMI) 36.0-36.9, adult Onset: 02-22-2021 Resolved: 08-24-2021 Chronic Other nutritional; endocrine; and metabolic disorders (3 sources) Obesity, unspecified Chronic Other screening for suspected conditions (not mental disorders or infectious disease) (2 sources) Encounter for screening for malignant neoplasm of prostate Onset: 08-24-2021 Resolved: 08-24-2021 Episodic Other upper respiratory disease (11 sources) Allergic rhinitis; Translations: [Allergic rhinitis, unspecified] Chronic Other upper respiratory infections (11 sources) Chronic maxillary sinusitis; Translations: [Chronic maxillary sinusitis] Chronic Residual codes; unclassified (20 sources) Obstructive sleep apnea syndrome; Translations: [Obstructive sleep apnea (adult) (pediatric)] 06-26-2019 Chronic Residual codes; unclassified (6 sources) Obstructive sleep apnea (adult) (pediatric); Translations: [Obstructive sleep apnea] Onset: 02-22-2021 Resolved: 08-24-2021 Chronic Residual codes; unclassified (1 source) Obstructive sleep apnea (adult)(pediatric); Translations: [Obstructive sleep apnea (adult) (pediatric)] Onset: 11-07-2022 Chronic Screening and history of mental health and substance abuse codes (3 sources) Ex-smoker 08-27-2019 Episodic Past or Other Problems Problem Classification Problem Date Documented Da te Episodic/Chronic Viral infection (2 sources) COVID-19 Results Test Name Value Interpretation Reference Range Facil ity HbA1c (Bld) [Mass fraction]o n 04-01-2023 A1C HEMOGLOBIN 6.7 [facility] Other A1C HEMOGLOBIN [facility] Other [facility] 03-15-2023 Lab Reports [id number] IFF [facility] CNOVSPon 02-20-2023 CNOVSP Visit (SP) Office (H EMASA) RACHEL ACKERMAN ([id number]) 1950 M Date Time Provider Department 02/20/23 10:45 AM KESHA CLIFTON During your visit today, we recorded the following information about you: Temperature Pulse Respiration Blood pressure 97.7 degrees 65/minute 16/minute 130/74 Weight Height 114.9 kg 1.778 m Kesha Clifton MD 02/20/2023 10:57 AM Signed PATIENT NAME: Rachel Ackerman CLINIC NO.: [id number] ATTENDING PHYSICIAN: Kesha Clifton MD DATE OF SERVICE: February 20, 2023 Dear here is an update on a follow up visit on male Rachel Ackerman at the clinic 02/20/2023 Diagnosis: Thrombocytopenia Treatment History: HPI: Rachel Ackerman is a 72 year old year old male here for follow up. Doing well and awaiting surgery PAST MEDICAL HISTORY Diagnosis Date Anxiety Asthma BPH with urinary obstruction Depressive disorder Hyperlipidemia Nocturia JOSE ANGEL (obstructive sleep apnea) Platelets decreased (HCC) Prediabetes Urinary retention Social History Tobacco Use Smoking status: Former Types: Cigarettes Passive exposure: Past Smokeless tobacco: Never Substance Use Topics Alcohol use: Not Currently Drug use: Never FAMILY HISTORY Problem Relation Age of Onset Heart disease Mother Hypertension Father Alcohol abuse Father Heart disease Father other (Bone Cancer) Sister Past medical, social and family history reviewed without any changes. REVIEW OF SYSTEMS GENERAL: No weight loss, malaise or fevers. No night sweats. HEENT: Negative for headaches, No changes in hearing or vision, no nose bleeds or other nasal problems. RESPIRATORY: Negative for cough, wheezing and shortness of breath CARDIOVASCULAR: Negative for chest pain, leg swelling and palpitations GI: Negative for abdominal discomfort, blood in stools or black stools and change in bowel habits : Negative for dysuria, frequency and incontinence MUSCULOSKELETAL: Negative for joint pain or swelling, back pain, and muscle pain. SKIN: Negative for lesions, rash, and itching. HEMATOLOGY/LYMPHOLOGY Negative for prolonged bleeding, bruising easily, and swollen nodes. NEURO: Negative for numbness or tingling of hands/feet. No weakness. PHYSICAL EXAMINATION: BP 130/74 Pulse 65 Temp (Src) 97.7 (Temporal) Resp 16 Ht 5' 10 (1.78m) Wt 253 lb 3.2 oz (114.9kg) SpO2 96% BMI 36.33 kg/(m2). Wt 114.9 kg (253 lb 3.2 oz) BMI 36.33 kg/m2 Last 3 Encounter Wt Readings: Date: Wt: 02/20/2023 114.9 kg (253 lb 3.2 oz) 01/23/2023 114.3 kg (252 lb) General appearance:ECOG PERFORMANCE STATUS: Patient in NAD. Skin: Skin color, texture, turgor normal. No rashes or lesions. Eyes: Anicteric sclera. Pupils are equally round and reactive to light. Extraocular movements are intact. Lymph Nodes: No cervical, supraclavicular, axillary or inguinal adenopathy. Oropharynx: Lips, mucosa, and tongue normal. Back: No pain to percussion. Negative SLR test Lungs clear to auscultation, No wheezing or rhonchi Heart: RRR without murmur, gallop, or rubs. Abdomen soft, non-tender. No masses, organomegaly Extremities: No deformities. No edema Neuro: Gait and speech normal. Reflexes normal and symmetric. Muscular strength intact. Sensation grossly intact. Rectal: Deferred : Deferred LABS: Glucose (mg/dL) Date Value 01/23/2023 89 Potassium (mmol/L) Date Value 01/23/2023 4.2 Sodium (mmol/L) Date Value 01/23/2023 139 Chloride (mmol/L) Date Value 01/23/2023 103 CO2 (mmol/L) Date Value 01/23/2023 23 Creatinine (mg/dL) Date Value 01/23/2023 0.98 BUN (mg/dL) Date Value 01/23/2023 15 Anion Gap (mmol/L) Date Value 01/23/2023 13 Calcium, Total (mg/dL) Date Value 01/23/2023 9.0 Protein, Total (g/dL) Date Value 01/23/2023 6.9 01/23/2023 6.7 Albumin (g/dL) Date Value 01/23/2023 4.7 Bilirubin, Total (mg/dL) Date Value 01/23/2023 1.3 Alkaline Phosphatase (U/L) Date Value 01/23/2023 97 AST (U/L) Date Value 01/23/2023 29 ALT (U/L) Date Value 01/23/2023 38 WBC Date Value Ref Range Status 01/23/2023 7.60 3.70 - 11.00 k/uL Final RBC Date Value Ref Range Status 01/23/2023 5.37 4.20 - 6.00 m/uL Final Hemoglobin Date Value Ref Range Status 01/23/2023 15.4 13.0 - 17.0 g/dL Final Hematocrit Date Value Ref Range Status 01/23/2023 44.7 39.0 - 51.0 % Final MCV Date Value Ref Range Status 01/23/2023 83.2 80.0 - 100.0 fL Final MCH Date Value Ref Range Status 01/23/2023 28.7 26.0 - 34.0 pg Final MCHC Date Value Ref Range Status 01/23/2023 34.5 30.5 - 36.0 g/dL Final RDW-CV Date Value Ref Range Status 01/23/2023 13.5 11.5 - 15.0 % Final Platelet Count Date Value Ref Range Status 01/23/2023 128 (L) 150 - 400 k/uL Final MPV Date Value Ref Range Status 01/23/2023 9.2 9.0 - 12.7 fL Final Abs Neut Date (more content not included)... Normal [facility] Consultation Noteon 02-08-20 Consultation Note [id number] Normal [facility] Lab Report[facility] 02-07-2023 Lab Reports [id number] IFF Normal [facility] CNPNon 01-30-2023 CNPN Telephone (HEMTSA) RACHEL ACKERMAN ([id number]) 1950 M Date Time Provider Department 01/30/23 CRYSTAL COOLEY During your visit today, we recorded the following information about you: Crystal Cooley RN 01/30/2023 2:43 PM Signed Patient has called to report his TURP has moved back to 02/25. He would like to know if his follow up appt with BERNARDINO should be moved to after the procedure. Discussed with Dr Clifton and no need to change appt dates. Patient notified and agrees with plan. He was encouraged to call with any questions or concerns Crystal Cooley RN Allergies As of Date: 01/30/2023 Noted Allergy Reaction CARDURA (DOXAZOSIN) 01/22/2023 - Anaphylaxis Date Reviewed: 01/23/2023 Reviewed by: Miguel July - Fully Assessed Reason for Visit: Patient Question [[id number]] Prescriptions as of 01/30/2023 - acetaminophen (TYLENOL) 500 mg tablet Take 500 mg by mouth every 6 hours as needed. - atorvastatin (LIPITOR) 80 mg tablet Take 80 mg by mouth once daily. - fluticasone-vilanterol (BREO ELLIPTA) 200-25 mcg/dose inhaler Inhale 1 Inhalation as instructed once daily. - busPIRone HCl 30 mg tablet Take 30 mg by mouth once daily. - ferrous sulfate 325 mg (65 mg iron) tablet Take 325 mg by mouth once daily. - finasteride (PROSCAR) 5 mg tablet Take 5 mg by mouth once daily. - sertraline (ZOLOFT) 100 mg tablet Take 100 mg by mouth once daily. - tamsulosin (FLOMAX) 0.4 mg Take 0.4 mg by mouth once daily. - albuterol HFA (VENTOLIN HFA) 90 mcg/actuation inhaler Inhale 2 Puffs as instructed. - ezetimibe (ZETIA) 10 mg tablet Take 10 mg by mouth once daily. Problem List As Of Date: 01/30/2023 (None) Encounter Status:Closed by CRYSTAL COOLEY on 01/30/23 [facility] Domonique 01-28-2023 OLEGARIO Telephone (CHRISTIANO) RACHEL ACKERMAN ([id number]) 1950 M Date Time Provider Department 01/28/23 CRYSTAL COOLEY During your visit today, we recorded the following information about you: Crystal Cooley RN 01/28/2023 12:51 PM Signed Call received from Mary @ Dr Huerta office to notify that patient is scheduled for TURP 02/07 and would like to know if patient is cleared from your standpoint for procedure. Advise Crystal Cooley RN Triage please fax to [phone] or call [phone] c/o Kesha Hackett MD 01/28/2023 2:23 PM Signed Yes. I sawe the patient and had requested my progress note to be faxed to him Kesha Clifton MD 01/28/2023 2:23 PM Signed Can we make sure that my progress note is faxed tp Dr. Huerta office please Crystal Cooley RN 01/28/2023 2:29 PM Signed Nimisha can you forward the progress note as requested per BERNARDINO please RAFAEL Ingram Patrica Jany 01/28/2023 3:07 PM Signed Office note faxed to Dr. Huerta. Allergies As of Date: 01/28/2023 Noted Allergy Reaction CARDURA (DOXAZOSIN) 01/22/2023 10 - Anaphylaxis Date Reviewed: 01/23/2023 Reviewed by: Miguel July - Fully Assessed Reason for Visit: Patient Update [[id number]] Prescriptions as of 01/28/2023 - acetaminophen (TYLENOL) 500 mg tablet Take 500 mg by mouth every 6 hours as needed. - albuterol HFA (VENTOLIN HFA) 90 mcg/actuation inhaler Inhale 2 Puffs as instructed. - atorvastatin (LIPITOR) 80 mg tablet Take 80 mg by mouth once daily. - busPIRone HCl 30 mg tablet Take 30 mg by mouth once daily. - ezetimibe (ZETIA) 10 mg tablet Take 10 mg by mouth once daily. - ferrous sulfate 325 mg (65 mg iron) tablet Take 325 mg by mouth once daily. - finasteride (PROSCAR) 5 mg tablet Take 5 mg by mouth once daily. - fluticasone-vilanterol (BREO ELLIPTA) 200-25 mcg/dose inhaler Inhale 1 Inhalation as instructed once daily. - sertraline (ZOLOFT) 100 mg tablet Take 100 mg by mouth once daily. - tamsulosin (FLOMAX) 0.4 mg Take 0.4 mg by mouth once daily. Problem List As Of Date: 01/28/2023 (None) Encounter Status:Closed by CRYSTAL COOLEY on 01/28/23 Normal [facility] CBC W Auto Differential pane l (Bld)on 01-23-2023 Basophils (Bld) [#/Vol] 0.08 10*3/uL Normal <0.11 [facility] Comment on above: Order Comment: Speci men Type: BLOOD SPECIMENOrdering Facility: [facility] Address: [address] [place] [address] Performed By: #### 5 7021-8 ####[facility] LABCLIA [id number] [place] [address] Basophils/100 WBC (Bld) 1.1 % Normal [facility] Comment on above: Order Comment: Speci men Type: BLOOD SPECIMENOrdering Facility: [facility] Address: [address] [place] [address] Performed By: #### 5 7021-8 ####[facility] LABCLIA [id number] [place] [address] Differential cell count method Nom (Bld) Auto Normal [facility] Comment on above: Order Comment: Speci men Type: BLOOD SPECIMENOrdering Facility: [facility] Address: [address] [place] [address] Performed By: #### 5 7021-8 ####[facility] LABCLIA [id number] [place] [address] Eosinophils (Bld) [#/Vol] 0.12 10*3/uL Normal <0.46 [facility] Comment on above: Order Comment: Speci men Type: BLOOD SPECIMENOrdering Facility: [facility] Address: [address] [place] [address] Performed By: #### 5 7021-8 ####[facility] LABCLIA [id number] [place] [address] Eosinophils/100 WBC (Bld) 1.6 % Normal [facility] Comment on above: Order Comment: Speci men Type: BLOOD SPECIMENOrdering Facility: [facility] Address: [address] [place] [address] Performed By: #### 5 7021-8 ####[facility] LABCLIA [id number] [place] [address] Erythrocyte distribution wid th (RBC) [Ratio] 13.5 % Normal 11.5-15.0 [facility] Comment on above: Order Comment: Speci men Type: BLOOD SPECIMENOrdering Facility: [facility] Address: [address] [place] [address] Performed By: #### 5 7021-8 ####[facility] LABCLIA [id number] [place] [address] Hematocrit (Bld) [Volume fraction] 44.7 % Normal 3 9.0-51.0 [facility] Comment on above: Order Comment: Speci men Type: BLOOD SPECIMENOrdering Facility: [facility] Address: [address] [place] [address] Performed By: #### 5 7021-8 ####[facility] LABCLIA [id number] [place] [address] Hemoglobin (Bld) [Mass/Vol] 15.4 g/dL Normal 13.0-17. 0 [facility] Comment on above: Order Comment: Speci men Type: BLOOD SPECIMENOrdering Facility: [facility] Address: [address] [place] [address] Performed By: #### 5 7021-8 ####[facility] LABCLIA [id number] [place] [address] Immature granulocytes (Bld) [#/Vol] 0.04 10*3/uL Normal <0.10 [facility] Comment on above: Order Comment: Speci men Type: BLOOD SPECIMENOrdering Facility: [facility] Address: [address] [place] [address] Performed By: #### 5 7021-8 ####[facility] LABCLIA [id number] [place] [address] Immature granulocytes/100 WBC (Bld) 0.5 % Normal [facility] Comment on above: Order Comment: Speci men Type: BLOOD SPECIMENOrdering Facility: [facility] Address: [address] [place] [address] Performed By: #### 5 7021-8 ####[facility] LABCLIA [id number] [place] [address] Lymphocytes (Bld) [#/Vol] 2.40 10*3/uL Normal 1.00-4.0 0 [facility] Comment on above: Order Comment: Speci men Type: BLOOD SPECIMENOrdering Facility: [facility] Address: [address] [place] [address] Performed By: #### 5 7021-8 ####[facility] LABCLIA [id number] [place] [address] Lymphocytes/100 WBC (Bld) 31.6 % Normal [facility] Comment on above: Order Comment: Speci men Type: BLOOD SPECIMENOrdering Facility: [facility] Address: [address] [place] [address] Performed By: #### 5 7021-8 ####[facility] LABIA [id number] [place] [address] MCH (RBC) [Entitic mass] 28.7 pg Normal 26.0-34.0 [facility] Comment on above: Order Comment: Speci men Type: BLOOD SPECIMENOrdering Facility: [facility] Address: [address] [place] [address] Performed By: #### 5 7021-8 ####[facility] LABCLIA [id number] [place] [address] MCHC (RBC) [Mass/Vol] 34.5 g/dL Normal 30.5-36.0 [facility] Comment on above: Order Comment: Speci men Type: BLOOD SPECIMENOrdering Facility: [facility] Address: [address] [place] [address] Performed By: #### 5 7021-8 ####[facility] LABCLIA [id number] [place] [address] MCV (RBC) [Entitic vol] 83.2 fL Normal 80.0-100.0 C [facility] Comment on above: Order Comment: Speci men Type: BLOOD SPECIMENOrdering Facility: [facility] Address: [address] [place] [address] Performed By: #### 5 7021-8 ####[facility] LABCLIA [id number] [place] [address] Monocytes (Bld) [#/Vol] 0.60 10*3/uL Normal <0.87 [facility] Comment on above: Order Comment: Speci men Type: BLOOD SPECIMENOrdering Facility: [facility] Address: [address] [place] [address] Performed By: #### 5 7021-8 ####[facility] LABCLIA [id number] [place] [address] Monocytes/100 WBC (Bld) 7.9 % Normal [facility] Comment on above: Order Comment: Speci men Type: BLOOD SPECIMENOrdering Facility: [facility] Address: [address] [place] [address] Performed By: #### 5 7021-8 ####[facility] LABCLIA [id number] [place] [address] Neutrophils (Bld) [#/Vol] 4.36 10*3/uL Normal 1.45-7.5 0 [facility] Comment on above: Order Comment: Speci men Type: BLOOD SPECIMENOrdering Facility: [facility] Address: [address] [place] [address] Performed By: #### 5 7021-8 ####[facility] LABCLIA [id number] [place] [address] Neutrophils/100 WBC (Bld) 57.3 % Normal [facility] Comment on above: Order Comment: Speci men Type: BLOOD SPECIMENOrdering Facility: [facility] Address: [address] [place] [address] Performed By: #### 5 7021-8 ####[facility] LABCLIA [id number] [place] [address] Nucleated RBC (Bld) [#/Vol] 10*3/uL Normal <0.01 [facility] Comment on above: Order Comment: Speci men Type: BLOOD SPECIMENOrdering Facility: [facility] Address: [address] [place] [address] Performed By: #### 5 7021-8 ####[facility] LABCLIA [id number] [place] [address] Nucleated RBC/100 WBC (Bld) [Ratio] 0.0 /100 WBC Normal [facility] Comment on above: Order Comment: Speci men Type: BLOOD SPECIMENOrdering Facility: [facility] Address: [address] [place] [address] Performed By: #### 5 7021-8 ####[facility] LABCLIA [id number] [place] [address] Platelet mean volume (Bld) [ Entitic vol] 9.2 fL Normal 9.0-12.7 [facility] Comment on above: Order Comment: Speci men Type: BLOOD SPECIMENOrdering Facility: [facility] Address: [address] [place] [address] Performed By: #### 5 7021-8 ####[facility] LABCLIA [id number] [place] [address] Platelets (Bld) [#/Vol] 128 10*3/uL Low 150-400 [facility] Comment on above: Order Comment: Speci men Type: BLOOD SPECIMENOrdering Facility: [facility] Address: [address] [place] [address] Performed By: #### 5 7021-8 ####[facility] LABIA [id number] [place] [address] RBC (Bld) [#/Vol] 5.37 10*6/uL Normal 4.20-6.00 [facility] Comment on above: Order Comment: Speci men Type: BLOOD SPECIMENOrdering Facility: [facility] Address: [address] [place] [address] Performed By: #### 5 7021-8 ####[facility] [id number] [place] [address] WBC (Bld) [#/Vol] 7.60 10*3/uL Normal 3.70-11.00 [facility] Comment on above: Order Comment: Speci men Type: BLOOD SPECIMENOrdering Facility: [facility] Address: [address] [place] [address] Performed By: #### 5 7021-8 ####[facility] LABIA [id number] [place] [address] CNOVSPon 01-23-2023 CNOVSP Visit (SP) Office ([facility]) RACHEL ACKERMAN ([id number]) 1950 Date Time Provider Department 01/23/23 12:00 PM KESHA CLIFTON During your visit today, we recorded the following information about you: Temperature Pulse Respiration Blood pressure 97.6 degrees 65/minute 18/minute 137/76 Weight Height 114.3 kg 1.778 m Kesha Clifton MD 01/23/2023 12:34 PM Signed PATIENT NAME: Rachel Ackerman CLINIC NO.: [id number] ATTENDING PHYSICIAN: Kesha Clifton MD DATE OF SERVICE: January 23, [address] Burns referring provider defined for this encounter. thank you for referring Mr Rachel Ackerman for an opinion regarding thrombocytopenia. CHIEF COMPLAINT: I have low PLT and need surgery HPI: Rachel Ackerman is a 72 year old year old male with past medical history significant for BPH, obesity, hyperlipidemia, obstructive sleep apnea on BiPAP, glucose intolerance and a former smoker who is undergoing a cystoscopy and TURP with Dr. Huerta on February 07. Preoperative work-up demonstrated platelet count 126. His coags were within normal limits. White count and differential within normal limits and no evidence of anemia. Patient has had multiple surgical procedures in the past without any bleeding history. He is unaware of any previous history of thrombocytopenia, however, review of his labs demonstrated a platelet count in the 140s approximately 3 years ago. He denies any history of heavy alcohol abuse or liver disease. He has had sinus surgery and multiple dental extractions without any bleeding. No family history of platelet and or bleeding disorder. Current Outpatient Medications Medication Sig acetaminophen (TYLENOL) 500 mg tablet Take 500 mg by mouth every 6 hours as needed. albuterol HFA (VENTOLIN HFA) 90 mcg/actuation inhaler Inhale 2 Puffs as instructed. atorvastatin (LIPITOR) 80 mg tablet Take 80 mg by mouth once daily. busPIRone HCl 30 mg tablet Take 30 mg by mouth once daily. ezetimibe (ZETIA) 10 mg tablet Take 10 mg by mouth once daily. ferrous sulfate 325 mg (65 mg iron) tablet Take 325 mg by mouth once daily. finasteride (PROSCAR) 5 mg tablet Take 5 mg by mouth once daily. fluticasone-vilanterol (BREO ELLIPTA) 200-25 mcg/dose inhaler Inhale 1 Inhalation as instructed once daily. sertraline (ZOLOFT) 100 mg tablet Take 100 mg by mouth once daily. tamsulosin (FLOMAX) 0.4 mg Take 0.4 mg by mouth once daily. No current facility-administered medications for this visit. ALLERGIES Allergen Reactions Cardura [Doxazosin] Anaphylaxis PAST MEDICAL HISTORY Diagnosis Date Anxiety Asthma BPH with urinary obstruction Depressive disorder Hyperlipidemia Nocturia JOSE ANGEL (obstructive sleep apnea) Platelets decreased (HCC) Prediabetes Urinary retention PAST SURGICAL HISTORY Procedure Laterality Date ARTHROSCOPY KNEE DIAGNOSTIC W/WO SYNOVIAL BX SPX Right COLONOSCOPY NASAL ENDOS,DIAG,UNI/ BILATERAL PAST SURGICAL HISTORY OF Excision of Basal cell carcinoma PAST SURGICAL HISTORY OF Pharyngeal PAST SURGICAL HISTORY OF Tonsillectomy REMV CATARACT EXTRACAP,INSERT LENS FAMILY HISTORY Problem Relation Age of Onset Heart disease Mother Hypertension Father Alcohol abuse Father Heart disease Father other (Bone Cancer) Sister Social History Tobacco Use Smoking status: Former Types: Cigarettes Passive exposure: Past Smokeless tobacco: Never Substance Use Topics Alcohol use: Not Currently Drug use: Never REVIEW OF SYSTEMS GENERAL: No weight loss, malaise or fevers. No night sweats. HEENT: Negative for headaches, No changes in hearing or vision, no nose bleeds or other nasal problems. RESPIRATORY: Negative for cough, wheezing and shortness of breath CARDIOVASCULAR: Negative for chest pain, leg swelling and palpitations GI: Negative for abdominal discomfort, blood in stools or black stools and change in bowel habits : Negative for dysuria, frequency and incontinence MUSCULOSKELETAL: Negative for joint pain or swelling, back pain, and muscle pain. SKIN: Negative for lesions, rash, and itching. HEMATOLOGY/LYMPHOLOGY Negative for prolonged bleeding, bruising easily, and swollen nodes. NEURO: Negative for numbness or tingling of hands/feet. No weakness. PHYSICAL EXAMINATION: BP 137/76 Pulse 65 Temp 36.4 ?C (97.6 ?F) (Temporal) Resp 18 Ht 177.8 cm (5' 10 ) Wt 114.3 kg (252 lb) SpO2 94% BMI 36.16 kg/m? Wt 114.3 kg (252 lb) BMI 36.16 kg/m2 Last 3 Encounter Wt Readings: Date: Wt: 01/23/2023 114.3 kg (252 lb) General appearance:ECOG PERFORMANCE STATUS: 0- Fully active, able to carry on all pre-disease performance w/o restriction. Patient in NAD. Skin: Skin color, texture, turgor normal. No rashes or lesions. Eyes: Anicteric sclera. Pupils are equally round and reactive to light. Extraocular movements are intact. (more content not included)... Normal [facility] Comprehensive metabolic 2000 panelon 01-23-2023 Albumin [Mass/Vol] 4.7 g/dL Normal 3.9-4.9 [facility] Comment on above: Order Comment: Speci men Type: BLOOD SPECIMENOrdering Facility: [facility] Address: [address] [place] [address] Performed By: #### 2 43206-20, 2531-0 ####[facility] LABCLIA [id number] [place] [address] [place] ALP [Catalytic activity/Vol] 97 U/L Normal 38-113 [facility] Comment on above: Order Comment: Speci men Type: BLOOD SPECIMENOrdering Facility: [facility] Address: [address] [place] [address] Performed By: #### 2 43206-20, 0 ####[facility] LABIA [id number] [place] [address] [place] ALT [Catalytic activity/Vol] 38 U/L Normal 10-54 [facility] Comment on above: Order Comment: Speci men Type: BLOOD SPECIMENOrdering Facility: [facility] Address: [address] [place] [address] Performed By: #### 2 43206-20, 0 ####[facility] LABCLIA [id number] [address] [address] [place] Anion gap [Moles/Vol] 13 mmol/L Normal 9-18 [facility] Comment on above: Order Comment: Speci men Type: BLOOD SPECIMENOrdering Facility: [facility] Address: [address] [place] [address] Performed By: #### 2 4328, 2531-0 ####[facility] LABIA [id number] [place] [id number] [place] AST [Catalytic activity/Vol] 29 U/L Normal 14-40 [facility] Comment on above: Order Comment: Speci men Type: BLOOD SPECIMENOrdering Facility: [facility] Address: [address] [place] [address] Performed By: #### 2 4323-8, 2531-0 ####[facility] LABCLIA [id number] [place] [address] [place] Bilirubin [Mass/Vol] 1.3 mg/dL Normal 0.2-1.3 [facility] Comment on above: Order Comment: Speci men Type: BLOOD SPECIMENOrdering Facility: [facility] Address: [address] [place] [address] Performed By: #### 2 432-8, 0 ####[facility] LABCLIA [id number] [place] [address] [place] Calcium [Mass/Vol] 9.0 mg/dL Normal 8.5-10.2 [facility] Comment on above: Order Comment: Speci men Type: BLOOD SPECIMENOrdering Facility: [facility] Address: [address] [place] [address] Performed By: #### 2 4328, 0 ####[facility] LABCLIA [id number] [place] [address] [place] Chloride [Moles/Vol] 103 mmol/L Normal 97-105 [facility] Comment on above: Order Comment: Speci men Type: BLOOD SPECIMENOrdering Facility: [facility] Address: [address] [place] [address] Performed By: #### 2 4323-8, 0 ####[facility] LABCLIA [id number] [place] [address] [place] CO2 [Moles/Vol] 23 mmol/L Normal 22-30 [facility] Comment on above: Order Comment: Speci men Type: BLOOD SPECIMENOrdering Facility: [facility] Address: [facility] [place] [address] Performed By: #### 2 4323-8, 0 ####[facility] LABIA [id number] [place] [address] [place] Creatinine [Mass/Vol] 0.98 mg/dL Normal 0.73-1.22 [facility] Comment on above: Order Comment: Speci men Type: BLOOD SPECIMENOrdering Facility: [facility] Address: [address] [place] [address] Performed By: #### 2 4323-8, 0 ####[facility] [id number] [place] [address] [place] Creatinine and Glomerular filtration rate.predicted panel (S/P/Bld) 82 mL/min/1.73m??? Normal >=60 [facility] Comment on above: Order Comment: Speci men Type: BLOOD SPECIMENOrdering Facility: [facility] Address: [address] [place] [address] Result Comment: Maureen mated Glomerular Filtration Rate (eGFR) is calculated using the 2020 CKD-EPI creatinine equation. This equation utilizes serum creatinine, sex, and age as parameters. The creatinine assay has traceable calibration to isotope dilution-mass spectrometry. Refer to KDIGO guidelines for clinical interpretation. In patients with unstable renal function, e.g. those with acute kidney injury, the eGFR may not accurately reflect actual GFR. Performed By: #### 2 4323-8, 0 ####[facility] LABIA [id number] [place] [address] [place] Glucose [Mass/Vol] 89 mg/dL Normal 74-99 [facility] Comment on above: Order Comment: Speci men Type: BLOOD SPECIMENOrdering Facility: [facility] Address: [address] [place] [address] Result Comment: The [place] Diabetes Association (ADA) provides guidance for cutoff values for fasting glucose and random glucose. The ADA defines fasting as no caloric intake for at least 8 hours. Fasting plasma glucose results between 100 to 125 mg/dL indicate increased risk for diabetes (prediabetes). Fasting plasma glucose results greater than or equal to 126 mg/dL meet the criteria for diagnosis of diabetes. In the absence of unequivocal hyperglycemia, results should be confirmed by repeat testing. In a patient with classic symptoms of hyperglycemia or hyperglycemic crisis, random plasma glucose results greater than or equal to 200 mg/dL meet the criteria for diagnosis of diabetes. Reference: Standards of Medical Care in Diabetes 2016, [place] Diabetes Association. Diabetes Care. 2016.39(Suppl 1). Performed By: #### 2 43206-20, ####[facility] LABCLIA [id number] [place] [address] [place] Potassium [Moles/Vol] 4.2 mmol/L Normal 3.7-5.1 [facility] Comment on above: Order Comment: Speci men Type: BLOOD SPECIMENOrdering Facility: [facility] Address: [address] [place] [address] Performed By: #### 2 4322-11, ####[facility] LABCLIA [id number] [place] [address] [place] Protein [Mass/Vol] 6.9 g/dL Normal 6.3-8.0 [facility] Comment on above: Order Comment: Speci men Type: BLOOD SPECIMENOrdering Facility: [facility] Address: [address] [place] [address] Performed By: #### 2 4322-11, ####[facility] LABCLIA [id number] [place] [address] [place] Sodium [Moles/Vol] 139 mmol/L Normal 136-144 [facility] Comment on above: Order Comment: Speci men Type: BLOOD SPECIMENOrdering Facility: [facility] Address: [address] [place] [address] Performed By: #### 2 43206-20, 0 ####[facility] LABCLIA [id number] [place] [address] [place] Urea nitrogen [Mass/Vol] 15 mg/dL Normal 9-24 [facility] Comment on above: Order Comment: Speci men Type: BLOOD SPECIMENOrdering Facility: [facility] Address: [address] [place] [address] Performed By: #### 2 4323-8, 2532-0 ####[facility] LABCLIA [id number] [place] [address] [place] Ferritin SerPl-mCncon 2022 Ferritin [Mass/Vol] 306.0 ng/mL Normal 30.3-565.7 [facility] Comment on above: Order Comment: Alana morris Type: BLOOD SPECIMEN [facility] Address: [address] [place] [address] Performed By: #### 2 276-4, 47677-2 #### [facility] LAB CLIA [id number] [address] [place] [address] [place] Folate SerPl-mCncon 01-24-20 Folate [Mass/Vol] 11.3 ng/mL Normal >4.7 [facility] Comment on above: Order Comment: Alana morris Type: BLOOD SPECIMENOrdering Facility: [facility] Address: [address] [place] [address] Performed By: #### 2 885-2, 2132-9, 2284-8 ####[facility] LABCLIA [id number] [place] [address] [place] HBV core Ab Ser Qlon 023 HBV core Ab Ql (S) Negative Normal Negative [facility] Comment on above: Order Comment: Speci arturo Type: BLOOD SPECIMENOrdering Facility: [facility] Address: [address] [place] [address] Result Comment: No e vidence of current or past infection with Hepatitis B virus. Should recent infection be suspected, repeat testing may be considered 3-4 weeks after this draw. Performed By: #### 2 2322-2, 87225-1, 5194-3 ####[facility] LABCLIA [id number] [place] [address] [place] HBV surface Ab Ql (S)on 01-13 HBV surface Ab Qn (S) <8.00 Normal [facility] Comment on above: Order Comment: Speci men Type: BLOOD SPECIMENOrdering Facility: [facility] Address: [address] [place] [address] Result Comment: <8 m IU/mL: No serological evidence of immunity to Hepatitis B Virus. >/= 8 to <12 mIU/mL: No serological evidence of immunity to Hepatitis B Virus. >/= 12 mIU/mL: Consistent with serological evidence of immunity to Hepatitis B Virus. Performed By: #### 2 2322-2, 82449-6, 3 ####[facility] LABCLIA [id number] [address] HBV surface Ab Ser Qlon 01-13 HBV surface Ab Ql (S) Negative Normal [facility] Comment on above: Order Comment: Speci men Type: BLOOD SPECIMENOrdering Facility: [facility] Address: [address] [place] [address] Result Comment: No s erological evidence of immunity to Hepatitis B Virus. Performed By: #### 2 2322-2, 58398-0, 5194-3 ####[facility] LABCLIA [id number] [address] [place] HBV surface Ag Ser Qlon 01-13 HBV surface Ag Ql (S) Negative Normal Negative [facility] Comment on above: Order Comment: Speci men Type: BLOOD SPECIMENOrdering Facility: [facility] Address: [address] [place] [address] Performed By: #### 2 2322-2, 12928-8, 5194-3 ####[facility] LABCLIA [id number] [address] [place] HCV Ab Ser Qlon 01-23-2023 HCV Ab Ql (S) Negative Normal Negative [facility] [place] Comment on above: Order Comment: Speci men Type: BLOOD SPECIMENOrdering Facility: [facility] Address: [address] [place] [address] Result Comment: The result suggests no evidence of active infection with Hepatitis C virus. Should recent infection be suspected, repeat testing may be considered 4-6 weeks after this draw. Performed By: #### 1 6128-1 ####[facility] LABCLIA [id number] [address] IMMUNOFIXATION SCREEN, SERUM on 01-23-2023 MPA RESULT No M protein is identified. Normal No M protein is identified. [facility] Comment on above: Order Comment: Speci men Type: BLOOD SPECIMENOrdering Facility: [facility] Address: [address] [place] [address] Performed By: #### I FESC ####[facility] LABCLIA [id number] [address] [place] STAFF REVIEW (MPA) Reviewed by Guerline massey MD [facility] Comment on above: Order Comment: Speci men Type: BLOOD SPECIMENOrdering Facility: [facility] Address: [address] [place] [address] Performed By: #### I FES ####[facility] LABCLIA [id number] [place] [address] [place] IMMUNOGLOBULINS GAMon 2022 IgA [Mass/Vol] 217 mg/dL Normal 70-400 [facility] Comment on above: Order Comment: Speci men Type: BLOOD SPECIMENOrdering Facility: [facility] Address: [address] [place] [address] Performed By: #### S ERIMM ####[facility] LABCLIA [id number] [place] [address] [place] IgG [Mass/Vol] 816 mg/dL Normal 700-1600 [facility] Comment on above: Order Comment: Speci men Type: BLOOD SPECIMENOrdering Facility: [facility] Address: [address] [place] [address] Performed By: #### S ERIMM ####[facility] LABCLIA [id number] [place] [address] [place] IgM [Mass/Vol] 37 mg/dL Low 40-230 [facility] Comment on above: Order Comment: Speci men Type: BLOOD SPECIMENOrdering Facility: [facility] Address: [address] [place] [address] Performed By: #### S ERIMM ####[facility] LABCLIA [id number] [place] [address] [place] Iron and Iron binding capaci ty panelon 01-23-2023 Iron [Mass/Vol] 82 ug/dL Normal 41-186 [facility] Comment on above: Order Comment: Speci men Type: BLOOD SPECIMEN [facility] Address: [address] [place] [address] Performed By: #### 2 276-4, 93326-3 #### [facility] CLIA [id number] [address] [place] [address] [place] Iron binding capacity [Mass/Vol] 374 ug/dL Normal 232 -386 [facility] Comment on above: Order Comment: Speci men Type: BLOOD SPECIMEN [facility] Address: [address] [place] [address] Performed By: #### 2 276-4, 03696-3 #### [facility] CLIA [id number] [address] [place] [address] [place] Iron/TIBC [Molar ratio] 21.9 % Normal 15.0-57.0 C [facility] Comment on above: Order Comment: Speci men Type: BLOOD SPECIMEN [facility] Address: [address] [place] [address] Performed By: #### 2 276-4, 44456-6 #### [facility] CLIA [id number] [address] [place] [address] [place] KAPPA/DIAZ,FREE,SERon 2022 Immunoglobulin light chains.kappa.free (S) [Mass/Vol] 16.8 mg/L Normal 3.3-19.4 [facility] Comment on above: Order Comment: Speci men Type: BLOOD SPECIMEN Ordering Facility: [facility] Address: [address] [place] [address] Result Comment: Rare ly, increased serum free light chains levels may not be detected or accurately quantified due to prozone phenomenon or in high viscosity samples using this immunoturbidimetric assay. Correlation with other laboratory results and clinical findings is recommended. The [place] Free Light Chain was performed using the Binding Site Optilite immunoturbidimetric method. Result obtained with different assay methods or kits cannot be used interchangeably. Performed By: #### K LFRS #### [facility] CLIA [id number] [address] [place] [address] [place] Immunoglobulin light chains.kappa/Immunoglobulin light chains.lambda (S) [Mass ratio] 1.62 Normal 0.26-1.65 [facility] Comment on above: Order Comment: Speci men Type: BLOOD SPECIMEN Ordering Facility: [facility] Address: [address] [place] [address] Performed By: #### K LFRS #### [facility] CLIA [id number] [address] [place] [address] [place] Immunoglobulin light chains.lambda.free [Mass/Vol] 10.4 mg/L Normal 5.7-26.3 [facility] Comment on above: Order Comment: Speci men Type: BLOOD SPECIMEN Ordering Facility: [facility] Address: [address] [place] [address] Result Comment: Rare ly, increased serum free light chains levels may not be detected or accurately quantified due to prozone phenomenon or in high viscosity samples using this immunoturbidimetric assay. Correlation with other laboratory results and clinical findings is recommended. The [place] Free Light Chain was performed using the Binding Site Optilite immunoturbidimetric method. Result obtained with different assay methods or kits cannot be used interchangeably. Performed By: #### K LFRS #### [facility] CLIA [id number] [address] [place] [address] [place] LDH SerPl-cCncon 01-23-2023 LDH [Catalytic activity/Vol] 255 U/L High 135-225 [facility] Comment on above: Order Comment: Speci men Type: BLOOD SPECIMENOrdering Facility: [facility] Address: [address] [place] [address] Performed By: #### 2 4323-8, 2532-0 ####[facility] [id number] [place] [address] [place] PROTEIN ELECTROPHORESIS SERU M (P)on 01-23-2023 Albumin [Mass/Vol] 4.57 g/dL Normal 3.43-5.41 [facility] Comment on above: Order Comment: Speci men Type: BLOOD SPECIMENOrdering Facility: [facility] Address: [address] [place] [address] Performed By: #### L [id number] ####[facility] [id number] [place] [address] [place] Alpha 1 globulin Elph [Mass/Vol] 0.27 g/dL Normal 0.18-0.43 [facility] Comment on above: Order Comment: Speci men Type: BLOOD SPECIMENOrdering Facility: [facility] Address: [address] [place] [address] Performed By: #### L [id number] ####[facility] [id number] [place] [address] [place] Alpha 2 globulin Elph [Mass/Vol] 0.66 g/dL Normal 0.42-0.98 [facility] Comment on above: Order Comment: Speci men Type: BLOOD SPECIMENOrdering Facility: [facility] Address: [address] [place] [address] Performed By: #### L [id number] ####[facility] [id number] [place] [address] [place] Beta globulin Elph [Mass/Vol] 0.79 g/dL Normal 0.61-1 .17 [facility] Comment on above: Order Comment: Speci men Type: BLOOD SPECIMENOrdering Facility: [facility] Address: [address] [place] [address] Performed By: #### L [id number] ####[facility] [id number] [place] [address] [place] Gamma globulin Elph [Mass/Vol] 0.61 g/dL Normal 0.53- 1.51 [facility] Comment on above: Order Comment: Speci men Type: BLOOD SPECIMENOrdering Facility: [facility] Address: [address] [place] [address] Performed By: #### L [id number] ####[facility] [id number] [place] [address] [place] M-PROTEIN LOCATION Normal [facility] Comment on above: Order Comment: Speci men Type: BLOOD SPECIMENOrdering Facility: [facility] Address: [address] [place] [address] Result Comment: Not Applicable. Performed By: #### L [id number] ####[facility] [id number] [place] [address] [place] Protein Fractions [Interp] No definitive M protein is identified on protein electrophoresis. Normal No definitive M protein is identified on protein electrophoresis. [facility] Comment on above: Order Comment: Speci men Type: BLOOD SPECIMENOrdering Facility: [facility] Address: [address] [place] [address] Performed By: #### L [id number] ####[facility] [id number] [place] [address] [place] Protein.monoclonal Elph [Mass/Vol] 0.00 g/dL Normal < =0.00 [facility] Comment on above: Order Comment: Speci men Type: BLOOD SPECIMENOrdering Facility: [facility] Address: [address] [place] [address] Performed By: #### L [id number] ####[facility] [id number] [place] [address] [place] SPE STAFF REVIEW Reviewed by Guerline Swift MD [facility] Comment on above: Order Comment: Speci men Type: BLOOD SPECIMENOrdering Facility: [facility] Address: [address] [place] [address] Performed By: #### L [id number] ####[facility] [id number] [place] [address] [place] Prot SerPl-mCncon 01-23-2023 Protein [Mass/Vol] 6.7 g/dL Normal 6.3-8.0 [facility] Comment on above: Order Comment: Speci men Type: BLOOD SPECIMEN Ordering Facility: [facility] Address: [address] [place] [address] Performed By: #### 2 885-2, 9, 8 #### [facility] CLIA [id number] [address] [place] [address] [place] Vit B12 SerPl-mCncon 023 Cobalamin (Vitamin B12) [Mass/Vol] 516 pg/mL Normal 232-1245 [facility] Comment on above: Order Comment: Speci men Type: BLOOD SPECIMEN Ordering Facility: [facility] Address: [address] [place] [address] Performed By: #### 2 885-2, 2131-9, 2283-8 #### [facility] CLIA [id number] [address] [place] [address] [place] Lab Reportson 10-09-2023 Lab Reports [id number]#1.00T IFF [facility] Formson 01-18-2023 Forms [id number]#1.00T IFF [facility] ECG 12-Leadon 01-16-2023 ECG 12-Lead [id number]#1.00C D:127 [facility] Reportson 01-16-2023 Lab Reports [id number]#1.00C D:127 [facility] Lab Reports [id number]#1.00C D:127 [facility] Consent for Procedure/Surger yon 12-28-2022 Consent for Procedure/Surgery [id number]#1.00CD:127 [facility] Consent for Procedure/Surger yon 12-26-2022 Consent for Procedure/Surgery [id number]#1.00CD:127 [facility] IntraOperative Documentson 0 12-26-2022 IntraOperative Documents [id number]#1.00CD:127 [facility] IntraOperative Documents [id number]#1.00CD:127 [facility] Outpatient Surgery Discharge Instructionon 12-26-2022 Outpatient Surgery Discharge Instruction [id number]#1.00CD:127 [facility] Consent for Treatmenton 12-14 Consent for Treatment [id number]#1.00CD:127 [facility] Main OR Intraoperative Recor don 12-25-2022 Main OR Intraoperative Record IntraOp Document Type FTURO Summary Primary Physician: Elia HUERTA MD Finalized Date/Time: 12/25/22 16:59:16 Pt. Name: RACHEL ACKERMAN Brendan Romero./Sex: 1950 Male Med Rec #: [id number] Physician: Elia HUERTA MD Financial #: [id number] Pt. Type: O Room/Bed: / Admit/Disch: 12/25/22 14:41:50 - Institution: Case Times FTURO Entry 1 Patient Times In Room 12/25/22 16:50:00 Out Room 12/25/22 17:03:00 Procedure Times Start 12/25/22 16:55:00 Stop 12/25/22 16:58:00 Anesthesia Times Last Modified By: Jihan Rader RN 12/25/22 16:59:06 Case Attendance FTURO Entry 1 Entry 2 Entry 3 Case Attendee Elia HUERTA MD, RN, Kinza Pena CST Role Performed Surgeon - Primary Survey Methodologist - Primary Scrub - Primary Time In 12/25/22 16:50:00 12/25/22 16:50:00 12/25/22 16:50:00 Time Out 12/25/22 17:03:00 12/25/22 17:03:00 12/25/22 17:03:00 Procedure CYSTOSCOPY LOCAL(.) CYSTOSCOPY LOCAL(.) CYSTOSCOPY LOCAL(.) Comments Last Modified By: Prasanth HALL, Jihan Rader RN, Jihan Gibson RN 12/25/22 16:59:07 12/25/22 16:59:07 12/25/22 16:59:07 Surgical Procedures FTURO Entry 1 Procedure Description Procedure CYSTOSCOPY LOCAL Modifiers . Surgeon Description CYSTOSCOPY Primary Procedure Yes Primary Surgeon Elia HUERTA MD Start 12/25/22 16:55:00 Stop 12/25/22 16:58:00 Anesthesia Type Local Surgical Service Urology Wound Class 2 - Clean-Contaminated Last Modified By: Jihan Rader RN 12/25/22 16:59:12 General Case Data FTURO Pre-Care Text: Classifies surgical wound, implements aseptic technique, initiates traffic control Entry 1 Case Information OR URO 1 FT Case Level None Wound Class 2 - Clean-Contaminated Specialty Urology Preop Diagnosis BPH WITH OBSTRUCTION, Postop Same As Preop Yes URGENCY, URGE INCONTINENCE Postop Diagnosis BPH WITH OBSTRUCTION, Outcomes Met? Yes URGENCY, URGE INCONTINENCE Last Modified By: Jihan Rader RN 12/25/22 16:23:03 Post-Care Text: The patient is free from signs and symptoms of infection EU IntraOp - FTURO Pre-Care Text: Implements protective measures prior to operative or invasive procedure, confirms identity before the operative or invasive procedure, verifies operative procedure, surgical site, and laterality Entry 1 EU Perioperative Protocols Procedure(s) CYSTOSCOPY LOCAL(.) Patient Identity Birthday, ID Band Verified (select at Check, Patient least 2): Participation Consents / H and P HandP, Surgery/Procedure Operative Site N/A Verified Consent Marking Verified Surgical Site Yes Laterality Verified n/a Verified Procedure Verified Yes Correct Patient Yes Position Verified Availability Equipment, Medication Time Out DEANNA WADDELL, Elia Cardona, Verified (If Participants Jihan Rader RN, Applicable) Kinza Velázquez CST Time Out Complete 12/25/22 16:55:00 Allergies Reviewed? Yes Allergies Reviewed Self/Patient With Body Position Supine Prep Area PENIS Prep Agents Betadine Solution Skin. Condition Unable to Visualize Additional None Specimens Collected Vitals - EU Blood Pressure 147/90 Pulse 62 bpm Respirations 16 br/min SPO2 95 % EBL 0 IandO - EU Total Intake 0 mL Total Output 0 mL Outcomes Met? Yes Last Modified By: Jihan Rader RN 12/25/22 16:55:09 Post-Care Text: The patient is free from signs and symptoms of injury caused by extraneous objects Sign Out FTURO Entry 1 Before Patient Leaves OR Nurse verbally Yes Nurse verbally n/a confirms with the confirms with the team the name of team that the procedure(s) instrument, sponge, recorded and needle counts are correct (or N/A) Nurse verbally n/a Nurse verbally n/a confirms with the confirms with the team how the team whether there specimen is labeled are any equipment (including patient problems to be name), if applicable addressed Sign Out Complete 12/25/22 16:58:00 Last Modified By: Jihan Rader RN 12/25/22 16:59:00 Case Comments Finalized By: Jihan Rader RN Document Signatures Signed By: Jihan Rader RN 12/25/22 16:59 Normal [facility] Main OR Preoperative Recordo n 12-25-2022 Main OR Preoperative Record Holding Area Document Type FTURO Summary Primary Physician: Elia HUERTA MD Finalized Date/Time: 12/25/22 16:18:39 Pt. Name: RACHEL ACKERMAN /Sex: 1950 Male Med Rec #: [id number] Physician: Elia HUERTA MD Financial #: [id number] Pt. Type: O Room/Bed: / Admit/Disch: 12/25/22 14:41:50 - Institution: Case Times Holding FTURO Pre-Care Text: Verifies consent for planned procedure, identifies individual values and wishes concerning care, includes family members in perioperative teaching Secures patient's records' belongings, and valuables, maintains patient's dignity and privacy, and maintains patient confidentiality Entry 1 In Holding 12/25/22 16:13:00 Outcomes Met? Yes Last Modified By: Kinza Pulliam RN 12/25/22 16:13:35 Post-Care Text: The patient participates in decisions affecting his or her perioperative plan of care The patient's right to privacy is maintained Surgery Checklist FTURO Entry 1 Patient Birthday, ID Band Procedure History and Physical, Identification: Check, Patient Verification: Surgical Consent, With Participation Patient NPO after Midnight: n/a Personal Items: Cataract Lens Implant, Glasses, Jewelry Personal Items bilateral cataract lens Limitations: up ad americo Comment: implants, ring x 1; glasses Complaints of Pain: No Skin Integrity Dry, Warm Vitals - EU Blood Pressure 147/90 Pulse 62 bpm Respirations 16 br/min SPO2 95 % Additional None RN Reviewed Yes Specimens Collected Last Modified By: Kinza Pulliam RN 12/25/22 16:15:17 Finalized By: Kinza Pulliam RN Document Signatures Signed By: Kinza Pulliam RN 12/25/22 16:18 Normal [facility] Operative Reporton Operative Report Patient: RACHEL ACKERMAN Age: 72 years Sex: Male : 1950 Associated Diagnoses: None Author: Elia HUERTA MD Procedure Operative Information Details: Date/ Time: 12/25/2022 17:01:00. Pre-Op Dx: BPH w/ LUTS - N40.1, Incomplete Bladder Emptying - R39.14. Post-Op Dx: Same. Anesthesia Type: Local. Procedure: Local Cystoscopy. Complications: None. Risks/Benefits/Informed Consent: Surgical risks, benefits, details of the procedure have been explained to the patient, Full informed consent has been obtained. Intraoperative Information Prepped: Patient is brought back to the endoscopy suite, Patient is placed in supine position, Patient prepped in the usual fashion with Betadine solution, 2% Xylocaine Jelly is placed per Urethra, After waiting several minutes the Cystoscope is introduced. The Urethra is: Normal. The Prostatic Urethra is: Obstructed, Median Lobe, Trilobar obstruction. Lateral lobes are fairly capacious.. The Bladder is: Abnormal, Trabeculated (Severe (3), Open diverticuli diffusely. No bladder tumors.). The ureteral orifices: Show efflux of clear urine. Devices Implanted: None. Removal: Cystoscope is removed, The patient tolerated it well. Postoperative Information Discharge: Patient is discharged home with antibiotic coverage, Follow up arranged. Plan for a TURP.. Normal [facility] Comment on above: Result Comment: Elec tronically Signed By: Elia HUERTA MD\.br\Date and Time Signed: 12/25/22 17:03 EDT Progress Note-Physicianon Progress Note-Physician Patient: RACHEL THURMAN Age: 72 years Sex: Male : 1950 Associated Diagnoses: None Author: Elia HUERTA MD Subjective X this gentleman is on max meds including Flomax and finasteride. He is still having difficulty urinating with hesitancy weak stream and incomplete emptying. Urodynamics shows very low flow and very high pressure. His postvoid residual is moderate. Cystoscopy today revealed trilobar obstruction of the prostate and high-grade bladder damage with high-grade trabeculation and open diverticuli. Review of Systems ROS reviewed as documented in chart Health Status Allergies: Allergic Reactions (Selected) Severe Cardura- Anaphylaxis. Current medications: Home Medications (11) Active acetaminophen 500 mg Tab , Oral, q6hr atorvastatin 80 mg Tab 80 mg = 1 tab(s), Oral, Daily Breo Ellipta 200 mcg-25 mcg/inh inhalation powder , Inhalation, Daily busPIRone 30 mg oral tablet 30 mg = 1 tab(s), Oral, BID Cipro 500 mg Tab 500 mg = 1 tab(s), Oral, Daily ferrous sulfate 325 mg Tab , Oral, TID finasteride 5 mg Tab 5 mg = 1 tab(s), Oral, Daily sertraline 100 mg Tab , Oral, Daily tamsulosin 0.4 mg Cap 0.4 mg = 1 cap(s), Oral, Daily Ventolin HFA 90 mcg/inh Aerosol , Inhalation, q6hr Zetia 10 mg Tab 10 mg = 1 tab(s), Oral, Daily Problem list: All Problems Hyperlipidemia / SNOMED CT 56079747 / Confirmed Obstructive sleep apnea / SNOMED CT 648763438 / Confirmed BPH with urinary obstruction / SNOMED CT 8707202076 / Confirmed Asthma / SNOMED CT 786246921 / Confirmed Moderate episode of recurrent major depressive disorder / SNOMED CT 425891450 / Confirmed Generalized anxiety disorder / SNOMED CT 43902868 / Confirmed Prediabetes / SNOMED CT 5468419590 / Confirmed Urinary retention / SNOMED CT 542045707 / Confirmed Nocturia / SNOMED CT 762757538 / Confirmed Urinary urgency / SNOMED CT 358235580 / Confirmed Post-void dribbling / SNOMED CT 851890002 / Confirmed Incontinence / SNOMED CT 33020116 / Confirmed Urinary frequency / SNOMED CT 455107005 / Confirmed Former smoker / SNOMED CT 81262833 / Confirmed Histories Past Medical History: Resolved Arthritis (4853819): Resolved. Asthma (431746022): Resolved. Family History: Hypertension Father () Alcoholism Father () Primary malignant neoplasm of bone Sister () Heart disease Father () Mother () Procedure history: Nasal sinus procedure (9743051230) in the month of 02/2017 at 66 Years. Excision of basal cell carcinoma- Left ear (900616589) in the month of 08/2016 at 65 Years. Cataract surgery (181902937) in the month of 02/2016 at 65 Years. Colonoscopy (420650496) in 2016 at 65 Years. Arthroscopy of knee- Right (727811814) in the month of 06/2014 at 63 Years. Pharyngeal operation for obstructive sleep apnea and snoring (732024327) in 1999 at 49 Years. Tonsillectomy (850333341). Social History Social & Psychosocial Habits Tobacco 09/05/2021 Tobacco Use: Former smoker, quit more . Objective He is resting comfortably and in no acute distress. Vitals are stable. Abdomen is soft and nontender. No masses are palpable. External genitalia are normal. Impression and Plan Impression: #1. This gentleman has BPH with LUTS refractory to medications. He is obstructed urodynamically. He is desirous for a TURP. Plan: #1. He will continue his Flomax and pro scar for now. We are getting him scheduled for TURP under anesthesia. Normal [facility] Comment on above: Result Comment: Elec tronically Signed By: DEANNA WADDELL, Elia Cardona\.br\Date and Time Signed: 12/25/22 17:07 EDT Consent for Procedure/Surger yon 11-13-2022 Consent for Procedure/Surgery [id number]#1.00CD:127 [facility] Reportson 11-13-2022 Lab Reports [id number]#1.00C D:127 Normal [facility] Ambulatory Visit Summaryon 0 11-12-2022 Ambulatory Visit Summary RACHEL ACKERMAN :1950 Visit Date:11/12/2022 Ambulatory Visit Instructions Your Diagnosis BPH with urinary obstruction Urinary urgency Tests Performed Urnls Dip Stick Auto w/o Microscopy POC 00852 Your Care Team Attending Physician - DEANNA WADDELL, Elia Cardona Primary Care Physician - PATRICA CRUZ CNP This Is Your Medications List finasteride (finasteride 5 mg Tab) tamsulosin (tamsulosin 0.4 mg Cap) Contact prescribing physician if questions or concerns acetaminophen (acetaminophen 500 mg Tab) albuterol (Ventolin HFA 90 mcg/inh Aerosol) atorvastatin (atorvastatin 80 mg Tab) busPIRone (busPIRone 30 mg oral tablet) ezetimibe (Zetia 10 mg Tab) ferrous sulfate (ferrous sulfate 325 mg Tab) fluticasone-vilanterol (Breo Ellipta 200 mcg-25 mcg/inh inhalation powder) sertraline (sertraline 100 mg Tab) Procedures Performed Nasal sinus procedure (02/2017), Excision of basal cell carcinoma (08/2016), Cataract surgery (02/2016), Colonoscopy (2015), Arthroscopy of knee (06/2014), Pharyngeal operation for obstructive sleep apnea and snoring (1999), Tonsillectomy. What to do next You Need to Schedule the Following Appointments Follow Up with DEANNA WADDELL, RAMON Berumen When: Comments: sched urodynamics and cysto Where: [facility] [address], [place] [address]- [phone] Medications What How Much When Instructions Unchanged finasteride (finasteride 5 mg Tab) 1 Tablets By Mouth Every day Unchanged tamsulosin (tamsulosin 0.4 mg Cap) 1 Capsules By Mouth Every day Unchanged acetaminophen (acetaminophen 500 mg Tab) By Mouth Every 6 hours Contact prescribing physician if questions or concerns Unchanged albuterol (Ventolin HFA 90 mcg/ inh Aerosol) Inhalation Every 6 hours Contact prescribing physician if questions or concerns Unchanged atorvastatin (atorvastatin 80 mg Tab) 1 Tablets By Mouth Every day Contact prescribing physician if questions or concerns Unchanged busPIRone (busPIRone 30 mg oral tablet) 1 Tablets By Mouth 2 times a day Contact prescribing physician if questions or concerns Unchanged ezetimibe (Zetia 10 mg Tab) 1 Tablets By Mouth Every day Contact prescribing physician if questions or concerns Unchanged ferrous sulfate (ferrous sulfate 325 mg Tab) By Mouth 3 times a day Contact prescribing physician if questions or concerns Unchanged fluticasone-vilanterol (Breo Ellipta 200 mcg-25 mcg/ inh inhalation powder) Inhalation Every day Contact prescribing physician if questions or concerns Unchanged sertraline (sertraline 100 mg Tab) By Mouth Every day Contact prescribing physician if questions or concerns Test Results Urnls Dip Stick Auto w/o Microscopy POC 32155 (11/12/2022) Bilirubin Urine Dipstick - Negative Blood Urine Dipstick - Negative Glucose Urine Dipstick - Negative Ketones Urine Dipstick - Negative Leukocytes Urine Dipstick - Negative Nitrite Urine Dipstick - Negative Protein Urine Dipstick - Negative Specific Sisters Urine Dipstick - 1.010 Urine Appearance Urine Dipstick - Clear Urine Color Urine Dipstick - Yellow Urobilinogen Urine Dipstick - Normal 0.2-1 EU/dl pH Urine Dipstick - 6.5 Allergies Cardura (Anaphylaxis) Problems Ongoing - Any problem that you are currently receiving treatment for. Asthma BPH with urinary obstruction Former smoker Generalized anxiety disorder Hyperlipidemia Incontinence Moderate episode of recurrent major depressive disorder Nocturia Obstructive sleep apnea Post-void dribbling Prediabetes Urinary frequency Urinary retention Urinary urgency Historical - Any problem that you are no longer receiving treatment for. Arthritis Asthma Education Materials Transurethral Resection of the Prostate Transurethral resection of the prostate (TURP) is the removal, or resection, of part of the prostate tissue. This procedure is done to treat an enlarged prostate gland (benign prostatic hyperplasia). The goal of TURP is to remove enough prostate tissue to allow for a normal flow of urine. The procedure will allow you to empty your bladder more completely when you urinate so that you can urinate less often. In a transurethral resection, a thin telescope with a light, a camera, and an electric cutting edge (resectoscope) is passed through the urethra and into the prostate. The opening of the urethra is at the end of the penis. Tell a health care provider about: ? Any allergies you have. ? All medicines you are taking, including vitamins, herbs, eye drops, creams, and kesr-prc-fxkdokb medicines. ? Any problems you or family members have had with anesthetic medicines. ? Any bleeding problems you have. ? Any surgeries you have had. ? Any medical conditions you have. ? Any prostate infections you have had. What are the risks? Generally, this is a safe procedure. However, problems may occur, including: ? Infection. ? Bleeding. ? (more content not included)... Normal [facility] Patient Educationon 11-13-19 23 Patient Education Urology Transurethral Resection of the Prostate Transurethral resection of the prostate (TURP) is the removal, or resection, of part of the prostate tissue. This procedure is done to treat an enlarged prostate gland (benign prostatic hyperplasia). The goal of TURP is to remove enough prostate tissue to allow for a normal flow of urine. The procedure will allow you to empty your bladder more completely when you urinate so that you can urinate less often. In a transurethral resection, a thin telescope with a light, a camera, and an electric cutting edge (resectoscope) is passed through the urethra and into the prostate. The opening of the urethra is at the end of the penis. Tell a health care provider about: ? Any allergies you have. ? All medicines you are taking, including vitamins, herbs, eye drops, creams, and uitq-exm-drrwdik medicines. ? Any problems you or family members have had with anesthetic medicines. ? Any bleeding problems you have. ? Any surgeries you have had. ? Any medical conditions you have. ? Any prostate infections you have had. What are the risks? Generally, this is a safe procedure. However, problems may occur, including: ? Infection. ? Bleeding. ? Allergic reactions to medicines. ? Blood in the urine (hematuria). ? Damage to nearby structures or organs. Other problems may occur, but they are rare. They include: ? Dry ejaculation, or having no semen come out during orgasm. ? Erectile dysfunction, or being unable to have or keep an erection. ? Scarring that leads to narrowing of the urethra. This narrowing may block the flow of urine. ? Inability to control when you urinate (incontinence). ? Deep vein thrombosis. This is a blood clot that can develop in your leg. ? TURP syndrome. This can happen when you lose too much sodium during or after the procedure. Some signs and symptoms of this condition include: ? Weakness. ? Headaches. ? Nausea or vomiting. ? Muscle cramping. What happens before the procedure? When to stop eating and drinking Follow instructions from your health care provider about what you may eat and drink before your procedure. These may include: ? 8 hours before your procedure ? Stop eating most foods. Do not eat meat, fried foods, or fatty foods. ? Eat only light foods, such as toast or crackers. ? All liquids are okay except energy drinks and alcohol. ? 6 hours before your procedure ? Stop eating. ? Drink only clear liquids, such as water, clear fruit juice, black coffee, plain tea, and sports drinks. ? Do not drink energy drinks or alcohol. ? 2 hours before your procedure ? Stop drinking all liquids. ? You may be allowed to take medicines with small sips of water. If you do not follow your health care provider's instructions, your procedure may be delayed or canceled. Medicines Ask your health care provider about: ? Changing or stopping your regular medicines. This is especially important if you are taking diabetes medicines or blood thinners. ? Taking medicines such as aspirin and ibuprofen. These medicines can thin your blood. Do not take these medicines unless your health care provider tells you to take them. ? Taking hqgt-wbi-irhzacl medicines, vitamins, herbs, and supplements. Surgery safety Ask your health care provider what steps will be taken to help prevent infection. These steps may include: ? Removing hair at the surgery site. ? Washing skin with a germ-killing soap. ? Taking antibiotic medicine. General instructions ? Do not use any products that contain nicotine or tobacco for at least 4 weeks before the procedure. These products include cigarettes, chewing tobacco, and vaping devices, such as e-cigarettes. If you need help quitting, ask your health care provider. ? If you will be going home right after the procedure, plan to have a responsible adult: ? Take you home from the hospital or clinic. You will not be allowed to drive. ? Care for you for the time you are told. What happens during the procedure? ? An IV will be inserted into one of your veins. ? You will be given one or more of the following: ? A medicine to help you relax (sedative). ? A medicine to make you fall asleep (general anesthetic). ? A medicine that is injected into your spine to numb the area below and slightly above the injection site (spinal anesthetic). ? Your legs will be placed in foot rests (stirrups) so that your legs are apart and your knees are bent. ? The resectoscope will be passed through your urethra to your prostate. ? Parts of your prostate will be resected using the cutting edge of the resectoscope. ? Fluid will be passed to rinse out the cut tissues (irrigation). ? The resectoscope will be removed. ? A small, thin tube (catheter) will be passed through your urethra and into your bladder. The catheter will drain urine into a bag outside of your body. The procedure may vary among health care (more content not included)... Normal [facility] Urology Office/Clinic Noteon 11-12-2022 Urology Office/Clinic Note Chief Complaint BPH with urinary obstruction HPI Staff 1 year with PSA. Previous dx of BPH with urinary obstruction, nocturia and urinary urgency. Current PSA done 10/08/22 is 0.74. Pt states that he has been having urgency and frequency since 2019. Pt continues taking Tamsulosin 0.4mg QD and Finasteride 5mg QD. PVR today is 237ml. Dysuria: no Incomplete bladder emptying: pt feels he is not emptying Hematuria: no Frequency: pt voids up to 8x during the daytime Urgency: yes Nocturia: 1x Stream: strains to get his stream started Leaking: yes Post void dripping: yes Wearing pads/ Depends: no Urge incontinence: no Stress incontinence: no Incontinence without Sensory Awareness: no Abdominal pain: no Flank pain: no Sexual complaints: no History of Present Illness Tests reviewed: reviewed UA, PSA I have reviewed the previous health record information and history for this patient from Dr. Rivera. I have reviewed and verified the staff HPI to be accurate for this encounter. There have been no associated fever, chills, flank pain, or blood in the urine. Denies any urinary infections since last encounter. Review of Systems PHQ Score Initial Depression Screen Score: 0 ROS - Provider Constitutional: denies weight loss, denies hot flashes. Eyes: denies eye problems. Gastrointestinal: denies nausea, denies vomiting. Cardiovascular: denies chest pain or angina. Integumentary: no dryness Musculoskeletal: denies musculoskeletal symptoms. ENMT: denies otolaryngeal symptoms. Respiratory: no shortness of breath. Heme/Lymph: denies easy bleeding tendency, denies easy bruising tendency. Psychiatric: no confusion, no anxiety. Genitourinary: See HPI. Physical Exam General Appearance: alert, no distress, well nourished, well developed male. Genitourinary: normal scrotum, normal testes, normal urethra, normal epididymis, normal vas deferens/spermatic cord. Flank Pain: none. Bladder: nonpalpable. Assessment/Plan Former Dr. Rivera pt. 1. BPH with urinary obstruction (N40.1: Benign prostatic hyperplasia with lower urinary tract symptoms) Pt is currently taking Flomax 0.4mg qd and Finasteride 5mg [1]. PVR today is 237mL. UA today negative for blood and infection. Pt states he noticed Tamsulosin helping to improve sxs but did not feel any significant changes with Finasteride. Reports he has difficulty starting his stream. Explained to pt he is on full medication dosage so procedural intervention is an alternative option. Discussed the risks/benefits of a TURP. Pt states he is interested in this. Will schedule cystoscopy and urodynamics prior to scheduling TURP. The risks and benefits been discussed. The risks include bleeding, infection, and irritation of the bladder and urinary channel, among others. The patient, after being informed of procedural details and after questions have been answered, wishes to proceed. Full informed consent has been obtained. Will order Local anesthesia. PSA 08/31/20 - 0.63 (Finasteride 1.26) 10/08/22 - 0.74 (Finasteride 1.58) 2. Urinary urgency (R39.15: Urgency of urination) Pt states he is unable to make to the bathroom on occasion, experiencing leakage with urgency. Follow-up With When Contact Information DEANNA WDADELL, Elia Cardona, [facility] [address], [place] [address] [phone] Additional Instructions: sched urodynamics and cysto Patient Education Transurethral Resection of the Prostate Urodynamic Testing Benign Prostatic Hyperplasia I, Karen Chaudhary, personally scribed for Dr. Huerta on 11/12/2022 13:32:37. . Documentation recorded by the scribe, Karen Chaudhary, accurately reflects the services(s) I performed and decisions made by me. Authenticated by Dr. Huerta on 11/12/2022 13:38:33. Problem List/Past Medical History Ongoing Asthma BPH with urinary obstruction Former smoker Generalized anxiety disorder Hyperlipidemia Incontinence Moderate episode of recurrent major depressive disorder Nocturia Obstructive sleep apnea Post-void dribbling Prediabetes Urinary frequency Urinary retention Urinary urgency Historical Arthritis Asthma Procedure/Surgical History Nasal sinus procedure (02/2017), Excision of basal cell carcinoma (08/2016), Cataract surgery (02/2016), Colonoscopy (2015), Arthroscopy of knee (06/2014), Pharyngeal operation for obstructive sleep apnea and snoring (1999), Tonsillectomy. Medications acetaminophen 500 mg Tab, Oral, q6hr atorvastatin 80 mg Tab, 80 mg= 1 tab(s), Oral, Daily Breo Ellipta 200 mcg-25 mcg/inh inhalation powder, Inhalation, Daily busPIRone 30 mg oral tablet, 30 mg= 1 tab(s), Oral, BID ferrous sulfate 325 mg Tab, Oral, TID finasteride 5 mg Tab, 5 mg= 1 tab(s), Oral, Daily, 3 refills sertraline 100 mg Tab, Oral, Daily tamsulosin 0.4 mg Cap, 0.4 mg= 1 cap(s), Oral, Daily, 3 refills Ventolin HFA 90 mcg/inh Aerosol, Inhalat (more content not included)... Normal [facility] Comment on above: Result Comment: Elec tronically Signed By: Mary Gibson\Date and Time Signed: 11/12/22 13:54 EDT A1C HEMOGLOBINon 09-27-2022 HbA1c (Bld) [Mass fraction] 6.0 % [employer] Other HbA1c (Bld) [Mass fraction]o n 09-27-2022 A1C HEMOGLOBIN [employer] Other A1C HEMOGLOBINon 02-26-2022 HbA1c (Bld) [Mass fraction] 5.6 % [employer] Other HbA1c (Bld) [Mass fraction]o n 02-26-2022 A1C HEMOGLOBIN [employer] Other HbA1c (Bld) [Mass fraction]o n 08-24-2021 A1C HEMOGLOBIN 6.1 [employer] Other A1C HEMOGLOBIN [employer] Other A1C HEMOGLOBINon 02-22-2021 HbA1c (Bld) [Mass fraction] 5.9 % [employer] Other HbA1c (Bld) [Mass fraction]o n 02-22-2021 A1C HEMOGLOBIN [employer] Other CBC AUTO DIFFon 09-02-2020 BASO # 0.1 103/ul Normal 0.0-0.1 [facility] Comment on above: Performed By: #### C BC #### [facility] [address] [address] Martha Yancey Basophils/100 WBC (Bld) 1.2 % Normal 0.2-2.0 [facility] Comment on above: Performed By: #### C BC #### [facility] [address] [place], [place] [id number] Marthajosué Yancey EO # 0.2 103/ul Normal 0.0-0.7 [facility] Comment on above: Performed By: #### C BC #### [facility] [address] [place], [place] [id number] Martha Yancey Eosinophils/100 WBC (Bld) 2.4 % Normal 0.9-7.0 [facility] Comment on above: Performed By: #### C BC #### [facility] [address] [place], [place] [id number] Martha Yancey Erythrocyte distribution wid th (RBC) [Ratio] 13.1 % Normal 11.0-15.0 [facility] Comment on above: Performed By: #### C BC #### [facility] [address] [place], [place] [id number] Martha Yancey Hematocrit (Bld) [Volume fraction] 45.5 % Normal 4 2.0-54.0 [facility] Comment on above: Performed By: #### C BC #### [facility] [address] [place], [place] [id number] Marthajosué Yancey Hemoglobin (Bld) [Mass/Vol] 15.6 g/dL Normal 14.0-18. 0 [facility] Comment on above: Performed By: #### C BC #### [facility] [address] [place], [place] [id number] Marthajosué Yancey IG # 0.08 10e3/ul Critically high 0.00-0.03 [facility] Comment on above: Performed By: #### C BC #### [facility] [address] [place], [place] [id number] Martha Naye IG % 1.1 % Critically high 0.0-0.5 [facility] Comment on above: Performed By: #### C BC #### [facility] [address] [place], [place] [id number] Martha Naye LYMPH # 2.7 103/ul Normal 1.2-3.8 [facility] Comment on above: Performed By: #### C BC #### [facility] [address] [place] [id number] Martha Naye Lymphocytes/100 WBC (Bld) 35.8 % Normal 20.5-60.0 [facility] Comment on above: Performed By: #### C BC #### [facility] [address] [place], [place] [id number] Martha Naye MANUAL DIFF REQ NO Normal [facility] Comment on above: Performed By: #### C BC #### [facility] [address] [place] [id number] Martha Naye MCH (RBC) [Entitic mass] 29.4 pg Normal 25.9-34.0 [facility] Comment on above: Performed By: #### C BC #### [facility] [address] [place], [place] [id number] Martha Naye MCHC (RBC) [Mass/Vol] 34.3 g/dL Normal 29.9-35.2 [facility] Comment on above: Performed By: #### C BC #### [facility] [address] [place], [place] [id number] Martha Naye MCV (RBC) [Entitic vol] 85.7 fL Normal 80.0-94.0 [facility] Comment on above: Performed By: #### C BC #### [facility] [address] [place], [place] [id number] Martha Naye MONO # 0.6 103/ul Normal 0.3-0.8 [facility] Comment on above: Performed By: #### C BC #### [facility] [address] [place], [place] [id number] Martha Naye Monocytes/100 WBC (Bld) 7.4 % Normal 1.7-12.0 [facility] Comment on above: Performed By: #### C BC #### [facility] [address] [place], [place] [id number] Martha Naye NEUT # 3.9 103/ul Normal 1.4-6.5 [facility] Comment on above: Performed By: #### C BC #### [facility] [address], [place] [address] Martha Naye Neutrophils/100 WBC (Bld) 52.1 % Normal 43.0-75.0 [facility] Comment on above: Performed By: #### C BC #### [facility] [address], [place] [address] Martha Naye Platelet mean volume (Bld) [Entitic vol] 9.1 fL Critically low 9.5-13.5 [facility] pital Comment on above: Performed By: #### C BC #### [facility] [address] [place] [phone] Martha Naye PLT 135 103/ul Critically low 150-450 [facility] Comment on above: Performed By: #### C BC #### [facility] [address] [place] [id number] Martha Naye RBC 5.31 106/ul Normal 4.70-6.10 [facility] Comment on above: Performed By: #### C BC #### [facility] [address] [place] [phone] Martha Naye WBC 7.5 103/ul Normal 4.0-11.0 [facility] Comment on above: Performed By: #### C BC #### [facility] [address] [place] [id number] Marthajosué Majoren LIPID PROFILEon 09-02-2020 CHOL-HDL RATIO NORM SEE BELOW Normal [facility] Comment on above: Result Comment: 3.3 - 4.4 LOW RISK 4.4 - 7.1 AVERAGE RISK 7.1 - 11.0 MODERATE RISK >11.0 HIGH RISK Performed By: #### T SH, CMP, LIPID #### [facility] [address] [place] [phone] Martha Naye Cholesterol [Mass/Vol] 171 mg/dL Normal <=200 [facility] Comment on above: Performed By: #### T SH, CMP, LIPID #### [facility] [address] [place] [address] Martha Naye Cholesterol in HDL [Mass/Vol] 35 mg/dL Normal [facility] Comment on above: Performed By: #### T SH, CMP, LIPID #### [facility] [address] [id number] Martha Naye Cholesterol in LDL [Mass/Vol] 81.8 mg/dL Normal [facility] Comment on above: Performed By: #### T SH, CMP, LIPID #### [facility] [address] [id number] Martha Naye Cholesterol.total/Cholestero l in HDL [Mass ratio] 4.9 {ratio} Normal [facility] Comment on above: Performed By: #### T GEORGI, CMP, LIPID #### [facility] [address] [place], [place] [phone] Martha Naye HDL NORMAL > or = 60 mg/dl - LO W CARDIOVASCULAR RISK <40 mg/dl - HIGH CARDIOVASCULAR RISK Normal [facility] Comment on above: Performed By: #### T GEORGI, CMP, LIPID #### [facility] [address] [id number] Martha Naye LDL CALC NORMAL SEE BELOW Normal [facility] Comment on above: Result Comment: <100 mg/dl OPTIMAL 100 - 129 mg/dl NEAR OR ABOVE OPTIMAL 130 - 159 mg/dl BORDERLINE HIGH 160 - 189 mg/dl HIGH >190 mg/dl VERY HIGH Performed By: #### T GEORGI, CMP, LIPID #### [facility] [address] [place], [place] [id number] Martha Naye Triglyceride [Mass/Vol] 271 mg/dL Critically high <=150 [facility] Comment on above: Performed By: #### T GEORGI, CMP, LIPID #### [facility] [address] [place] [address] Martha Naye VLDL CALC 54.2 mg/dL Normal [facility] Comment on above: Performed By: #### T GEORGI, CMP, LIPID #### [facility] [address] [place] [address] Martha Naye MICROALB CREAT RATIO RANDOMo n 09-02-2020 mALB <1.3 Normal <=30.0 [facility] Comment on above: Performed By: #### M CRR #### [facility] [address] [id number] Martha Naye MALB CR RATIO 10.7 mg/g Normal 0.0-29.[address] [facility] Comment on above: Performed By: #### M CRR #### [facility] [address] [place] [address] Martha Naye MALB CR RATIO RANGE SEE BELOW Normal [facility] Comment on above: Result Comment: NO M ICROALBUMINURIA 0-29 MG/G CLINICAL MICROALBUMINURIA 30-300 MG/G MACROALBUMINURIA >300 MG/G Performed By: #### M CRR #### [facility] [address] [place] [address] Martha Naye URINE CREAT 121.61 mg/dL Normal 20.00-300.00 [facility] Comment on above: Performed By: #### M CRR #### [facility] [address] [place] [address] Martha Yancey PROF 14(COMP METB)on 021 Albumin [Mass/Vol] 4.2 g/dL Normal 3.5-5.0 [facility] Comment on above: Performed By: #### T SH, CMP, LIPID #### [facility] [address] [place], [place] [id number] Marthajosué Yancey Albumin/Globulin [Mass ratio] 1.2 {ratio} Normal [facility] Comment on above: Performed By: #### T SH, CMP, LIPID #### [facility] [address] [place], [place] [phone] Martha Naye ALP [Catalytic activity/Vol] 87 U/L Normal 38-126 [facility] Comment on above: Performed By: #### T SH, CMP, LIPID #### [facility] [address] [place], [place] [id number] Martha Naye ALT [Catalytic activity/Vol] 51 U/L Normal 21-72 [facility] Comment on above: Performed By: #### T SH, CMP, LIPID #### [facility] [address] [place], [place] [id number] Martha Naye Anion gap [Moles/Vol] 15.9 mmol/L Normal [facility] Comment on above: Performed By: #### T GEORGI CMP, LIPID #### [facility] [address] [place] [address] Martha Naye AST [Catalytic activity/Vol] 31 U/L Normal 17-59 [facility] Comment on above: Performed By: #### T GEORGI CMP, LIPID #### [facility] [address] [place] [address] Martha Naye Bilirubin [Mass/Vol] 1.3 mg/dL Normal 0.2-1.3 [facility] Comment on above: Performed By: #### T GEORGI CMP, LIPID #### [facility] [address] [place] [address] Martha Naye Calcium [Mass/Vol] 8.5 mg/dL Normal 8.4-10.2 [facility] Comment on above: Performed By: #### T GEORGI CMP, LIPID #### [facility] [address] [place] [address] Martha Naye Chloride [Moles/Vol] 104 mmol/L Normal 98-107 [facility] Comment on above: Performed By: #### T GEORGI CMP, LIPID #### [facility] [address] [place] [address] Martha Naye CO2 [Moles/Vol] 25.2 mmol/L Normal 22.0-30.0 [facility] Comment on above: Performed By: #### T GEORGI CMP, LIPID #### [facility] [address] [place] [address] Martha Naye Creatinine [Mass/Vol] 1.02 mg/dL Normal 0.66-1.25 [facility] Comment on above: Performed By: #### T GEORGI, CMP, LIPID #### [facility] [address] [place] [address] Matrha Naye EGFR-AF [facility] LUCIAN >60 Normal >=60 [facility] Comment on above: Performed By: #### T GEORGI, CMP, LIPID #### [facility] [address] [place] [address] Martha Naye EGFR-NON AF [facility] LUCIAN >60 Normal >=60 [facility] Comment on above: Performed By: #### T GEORGI CMP, LIPID #### [facility] [address] [address] Martha Naye Globulin (S) [Mass/Vol] 3.6 g/dL Normal [facility] Comment on above: Performed By: #### T GEORGI CMP, LIPID #### [facility] [address] [address] Martha Naye Glucose [Mass/Vol] 107 mg/dL Critically high 74-106 [facility] Comment on above: Performed By: #### T GEORGI CMP, LIPID #### [facility] [address] [address] Martha Naye Potassium [Moles/Vol] 4.1 mmol/L Normal 3.4-5.0 [facility] Comment on above: Performed By: #### T GEORGI CMP, LIPID #### [facility] [address] [place] [address] Martha Naye Protein [Mass/Vol] 7.8 g/dL Normal 6.1-8.2 [facility] Comment on above: Performed By: #### T GEORGI CMP, LIPID #### [facility] [address] [place] [address] Martha Naye Sodium [Moles/Vol] 141 mmol/L Normal 137-145 [facility] Comment on above: Performed By: #### T GEORGI CMP, LIPID #### [facility] [address] [place] [address] Martha Naye Urea nitrogen [Mass/Vol] 17.0 mg/dL Normal 9.0-20.0 [facility] Comment on above: Performed By: #### T GEORGI CMP, LIPID #### [facility] [address] [place] [address] Martha Naye Urea nitrogen/Creatinine [Mass ratio] 16.7 mg/mg Normal [facility] Comment on above: Performed By: #### T GEORGI CMP, LIPID #### [facility] [address], [place] [address] Martha Yancey TSHon 09-02-2020 TSH 1.860 uIU/mL Normal 0.470-4.[address] [facility] Comment on above: Performed By: #### T SH, CMP, LIPID #### [facility] [address], [place] [address] Martha Yancey TSH RANGE SEE BELOW Normal [facility] Comment on above: Result Comment: <0.3 4 UIU/ml HYPERTHYROID 0.34-5.60 UIU/ml EUTHYROID >5.60 UIU/ml HYPOTHYROID Performed By: #### T SH, CMP, LIPID #### [facility] [address], [place] [address] Martha Yancey MAGR Intraoperative Recordon 06-16-2019 MAGR Intraoperative Record MAGR Intra-Op Record Summary Primary Physician: Finalized Date/Time: 06/16/19 12:25:52 Pt. Name: RACHEL ACKERMAN/Sex: 1950 MALE Med Rec #: [id number] Physician: Theodore Escamilla DO Financial #: [id number] Pt. Type: I Room/Bed: [facility] Admit/Disch: 06/01/19 06:00:00 - 06/03/19 15:06:00 Institution: Case Times MAGR Entry 1 Patient In Room Time 06/01/19 07:22:00 Out Room Time 06/01/19 07:37:00 Anesthesia Start Time 06/01/19 07:29:00 Stop Time 06/01/19 07:31:00 Surgery Start Time 06/01/19 07:29:00 Stop Time 06/01/19 07:31:00 Last Modified By: Anila Victoria RN 06/01/19 07:43:41 Case Attendance MAGR Entry 1 Entry 2 Entry 3 Case Attendee Jonathon Ely MD, Laura RN Klaehn, Margaret RN Role Performed Anesthesiologist of Survey Methodologist Survey Methodologist Record Time In 06/01/19 07:22:00 06/01/19 07:22:00 06/01/19 07:22:00 Time Out 06/01/19 07:37:00 06/01/19 07:37:00 06/01/19 07:37:00 Procedure Adductor Canal Adductor Canal Adductor Canal Block(Right) Block(Right) Block(Right) Last Modified By: Teodora Patterson RN 06/16/19 Anila Victoria RN, Margaret RN 12:25:26 06/01/19 07:43:51 06/01/19 07:43:51 Surgical Procedures MAGR Pre-Care Text: A.20 Verifies operative procedure, surgical site, and laterality Im.150 Develops individualized plan of care Entry 1 Procedure Adductor Canal Block Primary Procedure Yes Primary Surgeon Jonathon Ely MD Modifiers Right Surgeon Comment ADDUCTOR CANAL BLOCK Start 06/01/19 07:29:00 PRIOR TO RIGHT TOTAL KNEE Stop 06/01/19 07:31:00 Anesthesia Type Regional Block Surgical Service Anesthesia Wound Class Clean Technique Details Closure Technique N/A Entire procedure No was performed via laparoscope or robotic assistance Last Modified By: Anila Victoria RN 06/01/19 07:44:01 Post-Care Text: O.730 The patient's care is consistent with the individualized perioperative plan of care General Case Data MAGR Pre-Care Text: A.350.1 Classifies surgical wound Entry 1 Case Information OR MAGR Proc Room Case Level None Wound Class Clean Specialty Anesthesia ASA Class 3 Diagnosis Preop Diagnosis ADDUCTOR CANAL BLOCK Postop Same As Preop Yes PRIOR TO RIGHT TOTAL KNEE Postop Diagnosis ADDUCTOR CANAL BLOCK PRIOR TO RIGHT TOTAL KNEE Blunt or No Is the procedure No penetrating injury considered occured prior to Emergent/Urgent? the start of the procedure: Last Modified By: Anila Victoria RN 06/01/19 07:44:20 Post-Care Text: O.760 Patient receives consistent and comparable care regardless of the setting Time Out MAGR Entry 1 Time out date/time 06/01/19 07:26:00 All team members Yes have introduced themselves by name and role Surgeon, Yes Surgeon reviews Yes anesthesia, nurse critical or confirm patient, unexpected steps, site, procedure operative duration, anticipated blood loss Anesthesia team Yes Nursing team Yes reviews any reviews sterility patient-specific (including concerns indicator results) and equipment issues/concerns Antibiotic Antibiotic N/A prophylaxis given within the last 60 minutes Is essential Yes imaging displayed? Last Modified By: Anila Vicotria RN 06/01/19 07:44:55 Patient Positioning MAGR Pre-Care Text: A.280 Identifies baseline musculoskeletal status Im.40 Positions the patient Im.80 Applies safety devices Entry 1 Procedure Adductor Canal Body Position Supine Block(Right) Left Arm Position Resting at Side Right Arm Position Resting at Side Left Leg Position Extended Right Leg Position Extended Feet Uncrossed? Yes Press Points Checked Yes Outcome Met (O.80) Yes Last Modified By: Anila Victoria RN 06/01/19 07:45:16 Post-Care Text: E.290 Evaluates musculoskeletal status O.80 Patient is free from signs and symptoms of injury related to positioning Skin Prep MAGR Pre-Care Text: A.30 Verifies allergies Im.270 Performs skin preparation Im.270.1 Implements protective measures to prevent skin and tissue injury due to chemical sources Entry 1 Skin Prep Syntegrity Prep Agents (Im.270) Chlorhexidine Gluconate Prep By Jonathon Ely MD and Alcohol Prep Area (Im.270) Thigh Prep Area Details Right Skin Prep Agent Dry Yes Without Pooling Hair Removal Syntegrity Hair Removal Methods No hair removal performed Outcome Met (O.100) Yes Last Modified By: Anila Victoria RN 06/01/19 07:45:53 Post-Care Text: E.10 Evaluates for signs and symptoms of physical injury to skin and tissue O.100 Patient is free from signs and symptoms of chemical injury Departure from OR MAGR Entry 1 Present on Depart Oxygen Via Stretcher Post-op Destination Wallace Skin DFO Condition Dry Description Condition Intact Description Report Given To Sandee Hill RN Airway Maintenance Patient Status Stable Oxygen in Use? Yes Airway Device Nasal cannula Flow Rate 2 L/min Last Modified By: Anila Victoria RN 06/01/19 07:47:18 Case Comments Finalized By: Teodora Patterson RN Document Signatures Signed By: Anila Victoria RN 06/01/19 07:49 Teodora Patterson RN 06/16/19 12:25 Unfinalized History Date/Time Username Reason for Unfinalizing Freetext Reason for Unfinalizing 06/16/19 12:25 MHRSCOTT Correct Documentation change anesthesia role Normal [facility] Coding Summaryon 06-04-2019 Coding Summary CODING DATE: 020 [facility] STATUS: Home PAYOR: Medicare Grouper: 470 MS-[employer]G [employer] HIP AND KNEE JOINT REPLACEMENT OR REATTACHMENT OF LOWER EXTREMITY W/O FDC Low Trim 0 High Trim 999 ADMIT DX: M17.11 Unilateral primary osteoarthritis, right knee REASON FOR VISIT DX: FINAL DX: PRINCIPAL: M17.11 Y Unilateral primary osteoarthritis, right knee SECONDARY: G47.30 Y Sleep apnea, unspecified J44.9 Y Chronic obstructive pulmonary disease, unspecified PROCEDURES DOCTOR NAME DATE Replacement of Right Knee Joint FrancineTheodore And 06/01/2019 with Synthetic Substitute, Cemented, Open Approach NOTE: The code number assigned matches the documented diagnosis and / or procedure in the patient's chart. However, the narrative phrase printed from the coding software may appear abbreviated, or result in slightly different terminology. Coded By: Daisy Esquivel Date Saved: 06/04/2019 10:36 am [facility] Consent Formson 06-04-2019 Consent Forms [id number]#1.00[facility] History and Physicalon 06-04 History and Physical [id number]#1.00[facility] Medicare Messageon 0 Medicare Message [id number]#1.00[facility] Medication Managementon 05-17 Medication Management [id number]#1.00[facility] Outside Recordson 06-04-2019 Outside Records [id number]#1.00[facility] Provider Orderson 06-04-2019 Provider Orders [id number]#1.00[facility] Telemetry Stripson 0 Telemetry Strips [id number]#1.00OTGTIFF Normal [facility] .Auto Diff 1on 06-03-2019 Auto [place] % 10 % Normal 1-12 [facility] Comment on above: Performed By: #### 7 [id number], [id number], [id number] ####[facility] (DEFAULT)[address] [place] [address] Baso Abs# 0.0 x10 Normal 0.0-0.2 [facility] Comment on above: Performed By: #### 7 [id number], [id number], [id number] ####[facility] (DEFAULT)[address] [place] [address] Basophils/100 WBC (Bld) 0.3 % Normal 0.2-2.0 [facility] Comment on above: Performed By: #### 7 653557, [id number], [id number] ####[facility] (DEFAULT)[address] [place] [address] Eos Abs# 0.1 x10 Normal 0.0-0.4 [facility] Comment on above: Performed By: #### 7 573629, [id number], [id number] ####[facility] (DEFAULT)[address] [place] [address] Eosinophils/100 WBC (Bld) 0.5 % Low 0.9-4.0 [facility] Comment on above: Performed By: #### 7 261712, [id number], [id number] ####[facility] (DEFAULT)[address] [place] [address] Lymphocytes (Bld) [#/Vol] 2.1 x10 Normal 1.3-2.9 [facility] Comment on above: Performed By: #### 7 860021, [id number], [id number] ####[facility] (DEFAULT)[address] [place] [address] Lymphocytes/100 WBC (Bld) 19 % Normal 14-48 [facility] Comment on above: Performed By: #### 7 762909, [id number], [id number] ####[facility] (DEFAULT)[address] [place] [address] Seward Abs# 1.1 x10 High 0.0-0.8 [facility] Comment on above: Performed By: #### 7 651996, [id number], [id number] ####[facility] (DEFAULT)[address] [place] [address] Neut Abs# 7.6 x10 Normal 1.5-9.2 [facility] Comment on above: Performed By: #### 7 900695, [id number], [id number] ####[facility] (DEFAULT)[address] [place] [address] Neutrophils/100 WBC (Bld) 70 % Normal 44-88 [facility] Comment on above: Performed By: #### 7 803907, [id number], [id number] ####[facility] (DEFAULT)[address] [place] [address] CBC w/ Auto Diffon 0 Erythrocyte distribution wid th (RBC) [Ratio] 14.4 % Normal 11.5-15.0 [facility] Comment on above: Performed By: #### 7 785241, [id number], [id number] ####[facility] (DEFAULT)[address] [place] [address] Hematocrit (Bld) [Volume fraction] 36.6 % Normal 3 4.8-51.9 [facility] Comment on above: Performed By: #### 7 353992, [id number], [id number] ####[facility] (DEFAULT)[address] [place] [address] Hemoglobin (Bld) [Mass/Vol] 12.2 g/dL Normal 11.8-17. 7 [facility] Comment on above: Performed By: #### 7 039408, [id number], [id number] ####[facility] (DEFAULT)[address] [place] [address] Man Diff? Auto Normal [facility] Comment on above: Performed By: #### 7 251317, [id number], [id number] ####[facility] (DEFAULT)[address] [place] [address] MCH (RBC) [Entitic mass] 28 pg Normal 24-34 [facility] Comment on above: Performed By: #### 7 929079, [id number], [id number] ####[facility] (DEFAULT)[address] [place] [address] MCHC (RBC) [Mass/Vol] 33 g/dL Normal 26-37 [facility] Comment on above: Performed By: #### 7 898140, [id number], [id number] ####[facility] (DEFAULT)[address] [place] [address] MCV (RBC) [Entitic vol] 85 fL Normal 81-100 [facility] Comment on above: Performed By: #### 7 690856, [id number], [id number] ####[facility] (DEFAULT)[address] [place] [address] Platelet mean volume (Bld) [Entitic vol] 8.9 fL Normal 6.3-10.2 [facility] Comment on above: Performed By: #### 7 394693, [id number], [id number] ####[facility] (DEFAULT)[address] [place] [address] Platelets (Bld) [#/Vol] 144 x10 Normal 138-427 [facility] Comment on above: Performed By: #### 7 456275, [id number], [id number] ####[facility] (DEFAULT)[address] [place] [address] RBC (Bld) [#/Vol] 4.32 x10 Normal 3.70-5.30 [facility] Comment on above: Performed By: #### 7 004869, [id number], [id number] ####[facility] (DEFAULT)[address] [place] [address] WBC (Bld) [#/Vol] 10.9 x10 [facility] Comment on above: Performed By: #### 7 950689, [id number], [id number] ####[facility] (DEFAULT)[address] [place] [address] Education Noteon 06-03-2019 Education Note Education Materials Orthopedics Knee Rehabilitation in the Home After knee surgery, it is important to follow instructions from your health care provider about rehabilitation (rehab). It is important to design a program that is safe and effective for you. Your health care provider and rehabilitation therapist will work with you to meet your specific abilities and needs. What are the benefits? Knee rehab can help to: ? Strengthen your knee. ? Improve the flexibility and movement (range of motion) of your knee joint. ? Reduce swelling. ? Improve blood flow and prevent blood clots. How to do exercises at home ? Continue exercises at home that your health care provider or physical therapist instructed you to do in the hospital. ? Before you exercise: ? Take pain medicines, if told by your health care provider. Do not take the medicine if it makes you feel dizzy or sleepy. ? Do a warm-up activity, such as gentle walking or riding a stationary bike, as told by your health care provider. Doing that warms up your muscles and helps to prevent injury. ? While doing exercises: ? When standing, make sure you are near something sturdy that you can hold onto for balance, such as a heavy chair or the wall. ? Do exercises exactly as told by your health care provider and adjust them as directed. ? As you are recovering, choose an exercise pace that is comfortable for you, and gradually work up to your goal. ? Do not force your knee to bend. ? Do not exercise in a pool (aquatic therapy) until your incision is healed and your health care provider says that you can. Follow these instructions at home: Activity ? Do not use your knee to support (bear) your body weight until your health care provider says that you can. Follow weight-bearing restrictions as told. Use crutches or a walker as told by your health care provider. ? Do not twist or kneel on your injured knee. ? Ask your health care provider what activities are safe for you during recovery, and ask what activities you need to avoid. ? Avoid sitting for a long time without moving. Get up to take short walks every 1?2 hours. Ask for help if you feel weak or unsteady. Managing pain, stiffness, and swelling ? Put ice on affected areas after you exercise, or as needed. Icing can help to relieve joint pain and swelling. ? Put ice in a plastic bag or use the icing device (cold flow pad or cold therapy unit) that you were given. Follow instructions from your health care provider about how to use the icing device. ? Place a towel between your skin and the bag or device. ? Leave the ice on for 20 minutes, 2?3 times a day. ? If directed, apply heat to affected areas before you exercise, or as needed. Heat can reduce the stiffness of your muscles and joints. Use the heat source that your health care provider recommends, such as a moist heat pack or a heating pad. ? Place a towel between your skin and the heat source. ? Leave the heat on for 20?30 minutes. ? Remove the heat if your skin turns bright red. This is especially important if you are unable to feel pain, heat, or cold. You may have a greater risk of getting burned. ? Wear compression stockings as told by your health care provider. These stockings help to prevent blood clots and reduce swelling in your legs. ? Raise (elevate) your legs while sitting or lying down. Do not place your knee on top of pillows to elevate it. Keep your legs straight to prevent your knee from getting stuck in a bent position (contracture). Preventing falls ? Keep your home well-lit and clutter-free, especially in walkways and stairways. Keep floors dry and use non-skid mats. ? Remove tripping hazards from floors, such as throw rugs and cords. ? Install grab bars in bathrooms, and put night-lights in your bedroom and bathroom. ? Wear closed-toe shoes that fit well and support your feet. Wear shoes that have rubber soles or low heels. ? Talk with your health care provider about the nlyw-afw-pgnwntv and prescription medicines that you are taking. Some medicines can cause dizziness or changes in blood pressure, which increase your risk of falling. General recommendations ? Teach your family about your condition and how they can participate in your recovery. Include them during a physical therapy session. ? Keep all follow-up visits as told by your health care provider and physical therapist. This is important. Questions to ask your health care provider ? What exercises are safe for me to do? ? How often should I do the exercises? ? How can I manage the pain during exercise? ? What other activities are safe for me to do? Contact a health care provider if: ? You have questions about how to do exercises correctly. ? You have increased difficulty bending your knee. ? You have knee pain that does not go away after you rest and take pain medicines. ? Your prosthesis feels loose. ? You are not able to do exercises. Get help right away if: ? You fall. ? Your incision from surgery breaks open. Summary ? Knee rehab can help to strengthen your knee and improve the flexibility and movement (range of motion) of your knee joint. ? Continue exercises at home that your health care provider or physical therapist instructed you to do in the hospital. ? Call your health care provider if you have questions about how to do exercises correctly. This information is not intended to replace advice given to you by your health care provider. Make sure you discuss any questions you have with your health care provider. Document Released: 04/01/2006 Document Revised: 02/24/2018 Document Reviewed: 02/24/2018 [employer] Interactive Patient Education ? 2019 [employer] Normal [facility] Electrolyte Panel Standardon 06-03-2019 Anion gap [Moles/Vol] 13.0 mmol/L Normal 5.0-19.0 [facility] Comment on above: Performed By: #### 7 [id number], [id number], [id number] ####[facility] (DEFAULT)[address] [place] [address] Chloride [Moles/Vol] 106 mmol/L Normal 101-111 [facility] Comment on above: Performed By: #### 7 223607, [id number], [id number] ####[facility] (DEFAULT)[address] [place] [address] CO2 [Moles/Vol] 24 mmol/L Normal 21-32 [facility] Comment on above: Performed By: #### 7 [id number], [id number], [id number] ####[facility] (DEFAULT)[address] [place] [address] Potassium [Moles/Vol] 4.2 mmol/L Normal 3.6-5.1 [facility] Comment on above: Performed By: #### 7 228067, [id number], [id number] ####[facility] (DEFAULT)[address] [place] [address] Sodium [Moles/Vol] 139.0 mmol/L Normal 136.0-144.0 [facility] Comment on above: Performed By: #### 7 222789, [id number], [id number] ####[facility] (DEFAULT)[address] [place] [address] Inpatient Patient Summaryon 06-03-2019 Inpatient Patient Summary [address] [address] Patient Discharge Instructions Name: RACHEL ACKERMAN : 1950 Patient Address: [address] [place] [address] Primary Care Provider: Name: Patrica Cruz DNP After you are discharged if you find you have any questions, please, call [phone] ext [phone] to speak to a nurse. Discharge Diagnosis: Primary osteoarthritis of right knee Prescription Information: If you have been given a prescription for narcotics, seek immediate medical attention if you have any difficulty breathing or any sudden status changes such as confusion and sleepiness. If you or anyone you know is experiencing suicidal thoughts, mental health, alcohol and/or drug addiction problems; contact the Mental Health & Recovery [facility] 05/11 Crisis Hotline -Text 4HTYY xj 270921. If you received any narcotics, sedation, or any other medication that causes drowsiness for the next 24 hours, unless otherwise directed: ? Do not drive a car. ? Do not operate machinery such as power tools, lawn mowers, drills, sewing machines, or stoves ? Avoid alcoholic beverages and drugs for allergies, nerves, or sleep ? Do not make important personal or business decisions or sign any legal documents [facility] would like to thank you for allowing us to assist you with your healthcare needs. The following includes patient education materials and information regarding your injury/illness. RACHEL ACKERMAN has been given the following list of follow-up instructions, prescriptions, and patient education materials: Follow-up Instructions With: Address: When: Theodore Ecsamilla [address] [place] [address], [address] [place] [address] Business (2) 06/11/2019 9:00 AM With: Address: When: Patrica Cruz [address] [place] [address] Business (1) Medications During the course of your visit, your medication list was updated with the most current information. The details of those changes are reflected below: Medications to Continue That Have Not Changed Other Medications acetaminophen (acetaminophen 500 mg oral tablet) 1 tab(s) Oral Every 6 hours as needed as needed for pain. acetaminophen-oxycodone (Percocet 5/325 oral tablet) 1 tab(s) Oral Every 6 hours as needed for pain. dispensed 24.. albuterol (Ventolin HFA 90 mcg/inh inhalation aerosol) 2 puff(s) Inhalation Every 6 hours as needed for wheezing. ascorbic acid (Vitamin C 1000 mg oral tablet) 1 tab(s) Oral every day. atorvastatin (Lipitor 80 mg oral tablet) 1 tab(s) Oral every day. busPIRone (busPIRone 30 mg oral tablet) 1 tab(s) Oral 2 times a day. ergocalciferol (Vitamin D2 2000 intl units oral capsule) 1 tab(s) Oral every day. ezetimibe (ezetimibe 10 mg oral tablet) 1 tab(s) Oral every day. finasteride (finasteride 5 mg oral tablet) 1 tab(s) Oral every day. fluticasone-vilanterol (Breo Ellipta 200 mcg-25 mcg/inh inhalation powder) 1 puff Inhalation every day. sertraline (sertraline 100 mg oral tablet) 1 tab(s) Oral 2 times a day. vitamin E (vitamin E 1000 intl units oral capsule) 1 cap(s) Oral every day. It is important to always keep an active list of medications available so that you can share with other providers and manage your medications appropriately. As an additional courtesy, we are also providing you with your final active medications list that you can keep with you. acetaminophen (acetaminophen 500 mg oral tablet) 1 tab(s) Oral Every 6 hours as needed as needed for pain. acetaminophen-oxycodone (Percocet 5/325 oral tablet) 1 tab(s) Oral Every 6 hours as needed for pain. dispensed 24.. albuterol (Ventolin HFA 90 mcg/inh inhalation aerosol) 2 puff(s) Inhalation Every 6 hours as needed for wheezing. ascorbic acid (Vitamin C 1000 mg oral tablet) 1 tab(s) Oral every day. atorvastatin (Lipitor 80 mg oral tablet) 1 tab(s) Oral every day. busPIRone (busPIRone 30 mg oral tablet) 1 tab(s) Oral 2 times a day. ergocalciferol (Vitamin D2 2000 intl units oral capsule) 1 tab(s) Oral every day. ezetimibe (ezetimibe 10 mg oral tablet) 1 tab(s) Oral every day. finasteride (finasteride 5 mg oral tablet) 1 tab(s) Oral every day. fluticasone-vilanterol (Breo Ellipta 200 mcg-25 mcg/inh inhalation powder) 1 puff Inhalation every day. sertraline (sertraline 100 mg oral tablet) 1 tab(s) Oral 2 times a day. vitamin E (vitamin E 1000 intl units oral capsule) 1 cap(s) Oral every day. Take only the medications listed above. Contact your doctor prior to taking any medications not on this list. Medication leaflets, if any, will display below Diet & Activity Patient Activity Level: Patient Diet: Patient Activity Restrictions: Patient education materials, if any, will display below Knee Rehabilitation in the Home After knee surgery, it is important to follow instructions from your health care provider about rehabilitation (rehab). It is important to design a program that is safe and effective for you. Your health care provider and rehabilitation therapist will work with you to meet your specific abilities and needs. What are the benefits? Knee rehab can help to: ? Strengthen your knee. ? Improve the flexibility and movement (range of motion) of your knee joint. ? Reduce swelling. ? Improve blood flow and prevent blood clots. How to do exercises at home ? Continue exercises at home that your health care provider or physical therapist instructed you to do in the hospital. ? Before you exercise: ? Take pain medicines, if told by your health care provider. Do not take the medicine if it makes you feel dizzy or sleepy. ? Do a warm-up activity, such as gentle walking or riding a stationary bike, as told by your health care provider. Doing that warms up your muscles and helps to prevent injury. ? While doing exercises: ? When standing, make sure you are near something sturdy that you can hold onto for balance, such as a heavy chair or the wall. ? Do exercises exactly as told by your health care provider and adjust them as directed. ? As you are recovering, choose an exercise pace that is comfortable for you, and gradually work up to your goal. ? Do not force your knee to bend. ? Do not exercise in a pool (aquatic therapy) until your incision is healed and your health care provider says that you can. Follow these instructions at home: Activity ? Do not use your knee to support (bear) your body weight until your health care provider says that you can. Follow weight-bearing restrictions as told. Use crutches or a walker as told by your health care provider. ? Do not twist or kneel on your injured knee. ? Ask your health care provider what activities are safe for you during recovery, and ask what activities you need to avoid. ? Avoid sitting for a long time without moving. Get up to take short walks every 1?2 hours. Ask for help if you feel weak or unsteady. Managing pain, stiffness, and swelling ? Put ice on affected areas after you exercise, or as needed. Icing can help to relieve joint pain and swelling. ? Put ice in a plastic bag or use the icing device (cold flow pad or cold therapy unit) that you were given. Follow instructions from your health care provider about how to use the icing device. ? Place a towel between your skin and the bag or device. ? Leave the ice on for 20 minutes, 2?3 times a day. ? If directed, apply heat to affected areas before you exercise, or as needed. Heat can reduce the stiffness of your muscles and joints. Use the heat source that your health care provider recommends, such as a moist heat pack or a heating pad. ? Place a towel between your skin and the heat source. ? Leave the heat on for 20?30 minutes. ? Remove the heat if your skin turns bright red. This is especially important if you are unable to feel pain, heat, or cold. You may have a greater risk of getting burned. ? Wear compression stockings as told by your health care provider. These stockings help to prevent blood clots and reduce swelling in your legs. ? Raise (elevate) your legs while sitting or lying down. Do not place your knee on top of pillows to elevate it. Keep your legs straight to prevent your knee from getting stuck in a bent position (contracture). Preventing falls ? Keep your home well-lit and clutter-free, especially in walkways and stairways. Keep floors dry and use non-skid mats. ? Remove tripping hazards from floors, such as throw rugs and cords. ? Install grab bars in bathrooms, and put night-lights in your bedroom and bathroom. ? Wear closed-toe shoes that fit well and support your feet. Wear shoes that have rubber soles or low heels. ? Talk with your health care provider about the vkkm-tot-exialak and prescription medicines that you are taking. Some medicines can cause dizziness or changes in blood pressure, which increase your risk of falling. General recommendations ? Teach your family about your condition and how they can participate in your recovery. Include them during a physical therapy session. ? Keep all follow-up visits as told by your health care provider and physical therapist. This is important. Questions to ask your health care provider ? What exercises are safe for me to do? ? How often should I do the exercises? ? How can I manage the pain during exercise? ? What other activities are safe for me to do? Contact a health care provider if: ? You have questions about how to do exercises correctly. ? You have increased difficulty bending your knee. ? You have knee pain that does not go away after you rest and take pain medicines. ? Your prosthesis feels loose. ? You are not able to do exercises. Get help right away if: ? You fall. ? Your incision from surgery breaks open. Summary ? Knee rehab can help to strengthen your knee and improve the flexibility and movement (range of motion) of your knee joint. ? Continue exercises at home that your health care provider or physical therapist instructed you to do in the hospital. ? Call your health care provider if you have questions about how to do exercises correctly. This information is not intended to replace advice given to you by your health care provider. Make sure you discuss any questions you have with your health care provider. Document Released: 04/01/2006 Document Revised: 02/24/2018 Document Reviewed: 02/24/2018 [employer] Patient Education ? 2019 [employer] Viruses or Bacteria What?s got you sick? Antibiotics only treat bacterial infections. Viral illnesses cannot be treated with antibiotics. When an antibiotic is not prescribed, ask your healthcare professional for tips on how to relieve symptoms and feel better. Usual Cause Illness Viruses Bacteria Antibiotic Needed Cold/Runny Nose NO Bronchitis/Chest Cold (in otherwise healthy children and adults) NO Whooping Cough Yes Flu NO Strep Throat Yes Sore Throat (except strep) NO Fluid in the middle ear (otitis media with effusion) NO Urinary Tract Infection Yes Antibiotics Aren?t Always the Answer www.cdc.gov/getsmart GET SMART Know When Antibiotics Work [place] Department of Health and Human Services Centers for Disease Control and Prevention December 2013 Normal [facility] MAGR Postoperative Recordon 06-03-2019 MAGR Postoperative Record MAGR Phase II Record Summary Primary Physician: Theodore Escamilla DO Finalized Date/Time: 06/03/19 12:11:36 Pt. Name: RACHEL ACKERMAN/Sex: 1950 MALE Med Rec #: [id number] Physician: Theodore Escamilla DO Financial #: [id number] Pt. Type: I Room/Bed: [facility] Admit/Disch: 06/01/19 06:00:00 - Institution: Phase II Case Times MAGR Pre-Care Text: Patient is free from s/s of injury. Patient remains free from compromised physical state related to surgery or anesthesia. Patient comfort maintained. Patient/family verbalize understanding of discharge instructions. Entry 1 In PACU II 06/01/19 10:45:00 Discharge from PACU 06/01/19 11:45:00 II Last Modified By: Claudine Beck RN 06/03/19 12:11:34 Post-Care Text: The patient remains free from s/s of injury. Patient's vital signs stable, circulation maintained, return to preop mental and physical status, opsite/dressing intact, minimal or absent nausea and vomiting, tolerates po intake. Patient verbalizes adequate pain control. Patient/family express understanding of discharge instructions. Finalized By: Claudine Beck RN Document Signatures Signed By: Claudine Beck RN 06/03/19 12:11 [facility] Nutrition Noteon 06-03-2019 Nutrition Note Pt eating well, avg 100% of meals and supplements. No N/V. Labs reviewed. BM noted 06/02. No new rec'd at this time. Will continue to monitor. [facility] Pharmacy Noteon 06-03-2019 Pharmacy Note Delivered and collec anay hard copy at 12:00 PM. One prescription was paid for in marr [Electronically Signed on: 06/03/2019 16:06 EST] Anusha Valderrama [Verified on: 06/03/2019 16:06 EST] Anusha Valderrama Delivered at 2:16 PM correction [Electronically Signed on: 06/03/2019 16:07 EST] Anusha Valderrama [facility] Pharmacy Note Teach back on new me dication completed. 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: 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 Action: none required Renal Function: Estimated CrCl: no SrCr recorded Action: Continue to monitor renal function Anticoagulation or Prophylaxis: Aspirin Action: none required Antibiotics: None Action: None required Pain Management: Scheduled non-narcotic: APAP, cyclobenzaprine Scheduled narcotic: none prn narcotic pain medication(s): [id number] - Moderate pain, 10mg - Severe pain prn non-narcotic pain medication(s): Acetaminophen- Mild pain, Vistaril and ketorolac Action: OARRS and risk factors reviewed [Electronically Signed on: 06/03/2019 08:37 EST] Tania Grimes PharmD [Verified on: 06/03/2019 08:37 EST] Tania Grimes PharmD [facility] Progress Note-Physicianon Progress Note-Physician DATE OF ORTHOPEDIC PROGRESS NOTE: 2/19/2 020 TIME: 11.55 am The patient is in his bed in a semi-Cantor position and resting. He wakes up immediately. He states overall he is feeling good today. His pain is under control. He has done well with ambulation with his walker and he gets in and out of bed on his own. He denies numbness and tingling to the right lower extremity. He states he has no chest pain or shortness of breath. He denies any nausea or vomiting. He states he is urinating without difficulty and has had a bowel movement. PHYSICAL EXAMINATION: VITAL SIGNS: Today, are within normal limits. His blood pressure was slightly elevated at 186/70. His heart rate is 82. He is afebrile. LOWER EXTREMITIES: Examination of his right lower extremity reveals he has excellent range of motion of his foot and ankle. He has no calf tenderness to deep palpation. David's sign is negative. The dressing is clean, dry and intact. There is only mild swelling. He can straight leg raise without difficulty. LABORATORY STUDIES: Today the labs reveal his electrolytes are within normal limits. His WBC count is still 10.9. Hemoglobin is 12.2 and hematocrit 36.6 with no left shift. IMPRESSION: DAY #2 STATUS POST TOTAL RIGHT KNEE ARTHROPLASTY AND DOING WELL. PLAN: 1. He is going to be discharged today. 2. He has been given appropriate instructions and [facility] will be visiting him at his home tomorrow. 3. If he has any questions or concerns, he will contact. Dr. Escamilla. CONDITION ON DISCHARGE: Stable. Van Irby DO JOB #: [id number] [Electronically Signed on: 06/04/2019 08:18 EST] VAN IRBY DO [Verified on: 06/04/2019 08:18 EST] VAN IRBY DO [Transcribed on: 06/03/2019 12:39 EST] [facility] Progress Note-Physician DATE OF ORTHOPEDIC POSTOPERATIVE PROGRES S NOTE: 06/02/2019 TIME: 12:59 pm The patient is in his bedside chair visiting with his . He is awake, alert and oriented x3. He states at rest he has minimal distress but when he gets up and moves the knee hurts maybe a 6 or a 7. He denies numbness into the right lower extremity. He denies nausea or vomiting. He denies chest pain or shortness of breath. He denies dizziness or light-headedness. He is able to urinate and he has already had a small bowel movement this morning. PHYSICAL EXAMINATION: VITAL SIGNS: Stable. He has been afebrile. LOWER EXTREMITIES: Examination reveals that he can do a knee extension in the sitting position without difficulty. He has no calf tenderness to deep palpation and David's sign is negative. Today, we can extend the knee to neutral, 0 degrees. His surgical dressing has dropped down below the upper portion of the wound so we changed this today. The wound looks excellent. There is no drainage. There is no erythematous changes. No signs of sepsis and only very minimal swelling. Today, a sterile dressing was re-applied. LABORATORY: His morning laboratories reveal his sodium is slightly low at 135. WBC count is 10.9, hemoglobin 11.4 and hematocrit 33.3 with no left shift. PLAN: 1. The patient will continue his rehab. 2. We anticipate discharge tomorrow. PROGNOSIS: Good. Van Irby DO JOB #: [id number] [Electronically Signed on: 06/03/2019 11:46 EST] VAN IRBY DO [Verified on: 06/03/2019 11:46 EST] VAN IRBY DO [Transcribed on: 06/03/2019 06:10 EST] [facility] .Auto Diff 1on 06-02-2019 Auto [place] % 9 % Normal 1-12 [facility] Comment on above: Performed By: #### 7 [id number], [id number], [id number] ####[facility] (DEFAULT)[address] [place] [address] [id number] Baso Abs# 0.0 x10 Normal 0.0-0.2 [facility] Comment on above: Performed By: #### 7 [id number], [id number], [id number] ####[facility] (DEFAULT)[address] [place] [address] 63221 Basophils/100 WBC (Bld) 0.1 % Low 0.2-2.0 [facility] Comment on above: Performed By: #### 7 [id number], [id number], [id number] ####[facility] (DEFAULT)[address] [place] [address] 74033 Eos Abs# 0.0 x10 Normal 0.0-0.4 [facility] Comment on above: Performed By: #### 7 [id number], [id number], [id number] ####[facility] (DEFAULT)[address] [place] [address] 54941 Eosinophils/100 WBC (Bld) 0.2 % Low 0.9-4.0 [facility] Comment on above: Performed By: #### 7 633133, [id number], [id number] ####[facility] (DEFAULT)[address] [place] [address] 31311 Lymphocytes (Bld) [#/Vol] 2.0 x10 Normal 1.3-2.9 [facility] Comment on above: Performed By: #### 7 [id number], [id number], [id number] ####[facility] (DEFAULT)[address] [place] [address] 10084 Lymphocytes/100 WBC (Bld) 19 % Normal 14-48 [facility] Comment on above: Performed By: #### 7 [id number], [id number], [id number] ####[facility] (DEFAULT)[address] [place] [address] 99039 Seward Abs# 1.0 x10 High 0.0-0.8 [facility] Comment on above: Performed By: #### 7 783425, [id number], [id number] ####[facility] (DEFAULT)[address] [place] [address] Neut Abs# 7.8 x10 Normal 1.5-9.2 [facility] Comment on above: Performed By: #### 7 741929, [id number], [id number] ####[facility] (DEFAULT)[address] [place] [address] Neutrophils/100 WBC (Bld) 72 % Normal 44-88 [facility] Comment on above: Performed By: #### 7 189444, [id number], [id number] ####[facility] (DEFAULT)[address] [place] [address] CBC w/ Auto Diffon 0 Erythrocyte distribution wid th (RBC) [Ratio] 14.1 % Normal 11.5-15.0 [facility] Comment on above: Performed By: #### 7 840270, [id number], [id number] ####[facility] (DEFAULT)[address] [place] [address] Hematocrit (Bld) [Volume fraction] 33.5 % Low 3 4.8-51.9 [facility] Comment on above: Performed By: #### 7 203048, [id number], [id number] ####[facility] (DEFAULT)[address] [place] [address] Hemoglobin (Bld) [Mass/Vol] 11.4 g/dL Low 11.8-17. 7 [facility] Comment on above: Performed By: #### 7 [id number], [id number], [id number] ####[facility] (DEFAULT)[address] [place] [address] Man Diff? Auto Normal [facility] Comment on above: Performed By: #### 7 395571, [id number], [id number] ####[facility] (DEFAULT)[address] [place] [address] MCH (RBC) [Entitic mass] 29 pg Normal 24-34 [facility] Comment on above: Performed By: #### 7 670514, [id number], [id number] ####[facility] (DEFAULT)[address] [place] [address] MCHC (RBC) [Mass/Vol] 34 g/dL Normal 26-37 [facility] Comment on above: Performed By: #### 7 875260, [id number], [id number] ####[facility] (DEFAULT)[address] [place] [address] MCV (RBC) [Entitic vol] 84 fL Normal 81-100 [facility] Comment on above: Performed By: #### 7 [id number], [id number], [id number] ####[facility] (DEFAULT)[address] [place] [address] Platelet mean volume (Bld) [Entitic vol] 8.9 fL Normal 6.3-10.2 [facility] Comment on above: Performed By: #### 7 022492, [id number], [id number] ####[facility] (DEFAULT)[address] [place] [address] Platelets (Bld) [#/Vol] 133 x10 Low 138-427 [facility] Comment on above: Performed By: #### 7 634372, [id number], [id number] ####[facility] (DEFAULT)[address] [place] [address] 68366 RBC (Bld) [#/Vol] 3.99 x10 Normal 3.70-5.30 [facility] Comment on above: Performed By: #### 7 722771, [id number], [id number] ####[facility] (DEFAULT)[address] [place] [address] 96098 WBC (Bld) [#/Vol] 10.9 x10 [facility] Comment on above: Performed By: #### 7 229626, [id number], [id number] ####[facility] (DEFAULT)[address] [place] [address] Electrolyte Panel Standardon 06-02-2019 Anion gap [Moles/Vol] 13.0 mmol/L Normal 5.0-19.0 [facility] Comment on above: Performed By: #### 7 514524, [id number], [id number] ####[facility] (DEFAULT)[address] [place] [address] 33557 Chloride [Moles/Vol] 103 mmol/L Normal 101-111 [facility] Comment on above: Performed By: #### 7 597552, [id number], [id number] ####[facility] (DEFAULT)[address] [place] [address] 09375 CO2 [Moles/Vol] 23 mmol/L Normal 21-32 [facility] Comment on above: Performed By: #### 7 041464, [id number], [id number] ####[facility] (DEFAULT)[address] [place] [address] 21168 Potassium [Moles/Vol] 3.9 mmol/L Normal 3.6-5.1 [facility] Comment on above: Performed By: #### 7 257027, [id number], [id number] ####[facility] (DEFAULT)[address] [place] [address] 09860 Sodium [Moles/Vol] 135.0 mmol/L Low 136.0-144.0 [facility] Comment on above: Performed By: #### 7 765224, [id number], [id number] ####[facility] (DEFAULT)[address] [place] [address] 39126 Progress Note - Nurseon 02- Progress Note - Nurse Dr. Irby vs. et changed right knee drs g.. Incision well approximated with rossana in place. Bruising et edema surround incision. Mod. amt.of dried blood noted on old drsg., no active bleeding. Primapore, ABD. followed by elastic wrap applied to surgical site. Pt. jennifer. well. [Electronically Signed on: 06/02/2019 16:39 EST] Kinza London RN [Verified on: 06/02/2019 16:39 EST] Lita HALL, [facility] Anesthesia Noteon 06-01-2019 Anesthesia Note Patient: RACHEL ACKERMAN Age: 68 years Sex: MALE : 1950 Associated Diagnoses: None Author: Jonathon Ely MD Preoperative Information Anesthesia history: Patient history: No difficult intubation, No malignant hyperthermia. Family history: No malignant hyperthermia. Review of Systems Constitutional: Negative. Respiratory: Negative, No shortness of breath. Cardiovascular: Negative, No chest pain. Gastrointestinal: No heartburn. Health Status Allergies: Allergic Reactions (All) Severity Not Documented Cardura- Anaphylaxis. Current medications: Home Medications (11) Active acetaminophen 500 mg oral tablet 500 mg = 1 tab(s), PRN, PO, q6hr Breo Ellipta 200 mcg-25 mcg/inh inhalation powder 1 puff, INH, Daily busPIRone 30 mg oral tablet 30 mg = 1 tab(s), PO, BID ezetimibe 10 mg oral tablet 10 mg = 1 tab(s), PO, Daily finasteride 5 mg oral tablet 5 mg = 1 tab(s), PO, Daily Lipitor 80 mg oral tablet 80 mg = 1 tab(s), PO, Daily sertraline 100 mg oral tablet 100 mg = 1 tab(s), PO, BID Ventolin HFA 90 mcg/inh inhalation aerosol 2 puff(s), PRN, INH, q6hr Vitamin C 1000 mg oral tablet 1,000 mg = 1 tab(s), PO, Daily Vitamin D2 2000 intl units oral capsule 1 tab(s), PO, Daily vitamin E 1000 intl units oral capsule 1,000 International_Unit = 1 cap(s), PO, Daily Problem list (past medical history): All Problems Alcoholism / SNOMED CT 52368341 / Confirmed Anxiety / SNOMED CT 96598579 / Confirmed Asthma / SNOMED CT 299195834 / Confirmed Depression / SNOMED CT 81955224 / Confirmed Former smoker / SNOMED CT 89994173 / Confirmed Hyperlipidemia / SNOMED CT 48612988 / Confirmed Skin cancer / SNOMED CT 2225985868 / Confirmed Sleep apnea / SNOMED CT 97707263 / Confirmed Histories Family History: Heart attack Father Mother Hypertension Mother Procedure history: Tonsillectomy (614580777). Arthroscopy (16286619). Comments: 05/27/2019 14:07 Saskia Lim RN Right knee 05/27/2019 12:37 Claudine Esteban RN meniscectomy Colonoscopy (937196440). Palate operation (607112560). Comments: 05/27/2019 14:08 Saskia Lim RN Removal of for sleep apnea Maxillary sinus (03248927). Extraction of cataract by phacofragmentation with aspiration (1315817550). Comments: 05/27/2019 14:19 Saskia Lim RN bilateral Social History Electronic Cigarette/Vaping Assessment Electronic Cigarette Use: Never. Alcohol Assessment Use: Past. Previous treatment: Alcoholics Anonymous. Comment: Quit in 1978 Tobacco Assessment Former smoker, quit more than 30 days ago Tobacco Use:. 15 year(s). Comment: Quit in 1982- was a 1 1/2 pk/ day smoker Substance Abuse Assessment Substance use: Past. Amphetamines, Marijuana Comment: None since 1978 . Social & Psychosocial Habits Alcohol 05/27/2019 Alcohol Use: Past Previous treatment: Alcoholics Anonymous Comment: Quit in 1978 - 05/27/2019 14:15 - Saskia Landin RN Substance Abuse 05/27/2019 Substance use: Past Type: Amphetamines, Marijuana Comment: None since 1978 - 05/27/2019 14:17 - Saskia Landin RN Tobacco 05/27/2019 Smoking tobacco use: Former smoker, quit more Number of years: 15 Comment: Quit in 1982- was a 1 1/2 pk/ day smoker - 05/27/2019 14:17 - Saskia Landin RN Electronic Cigarette/Vaping 05/27/2019 Electronic Cigarette Use: Never . Physical Examination VS/Measurements Measurements from flowsheet : Measurements 06/01/2019 6:25 EST Height 175.260 cm Height/Length Dosing 175.260 cm Weight 109.500 kg Weight Dosing 109.500 kg Body Mass Index 35.650 kg/m2 , Vital Signs (last 24 hrs) Last Charted Heart Rate Peripheral 67 bpm (FE 17 07:33) Resp Rate 16 br/min (JUN 01:33) SBP 128 mmHg (JUN 01:33) DBP 80 mmHg (JUN 01:33) SpO2 95 % (JUN 01:33) Weight 109.50 kg (JUN 01 06:25) Height 175.26 cm (JUN 01 06:25) Review / Management Laboratory Results Plan [place] [employer]hesi[employer]#(ASA) physical status classification: Class III. Anesthetic Preoperative Plan Anesthesia: General. , Regional adductor canal block. Anesthetic plan, risks, benefits, and alternatives discussed with the patient and/or family. Patient verbalized understanding. Anesthetic technique: discussed SAB vs GA. pt prefers GA. [Electronically Signed on: 06/01/2019 09:29 EST] Jonathon Ely MD [Verified on: 06/01/2019 09:29 EST] Jonathon Ely MD [facility] History and Physicalon 06-01 History and Physical [id number] [facility] MAGR Intraoperative Recordon 06-01-2019 MAGR Intraoperative Record MAGR Intra-Op Record Summary Primary Physician: Theodore Escamilla DO Finalized Date/Time: 06/01/19 09:57:13 Pt. Name: RACHEL ACKERMAN/Sex: 1950 MALE Med Rec #: [id number] Physician: Theodore Escamilla DO Financial #: [id number] Pt. Type: I Room/Bed: [facility] Admit/Disch: 06/01/19 06:00:00 - Institution: Case Times MAGR Entry 1 Patient In Room Time 06/01/19 07:36:00 Out Room Time 06/01/19 09:46:00 Anesthesia Start Time 06/01/19 07:36:00 Stop Time 06/01/19 09:46:00 Surgery Start Time 06/01/19 08:06:00 Stop Time 06/01/19 09:38:00 Last Modified By: Sandee Hill RN 06/01/19 09:55:43 Case Attendance MAGR Entry 1 Entry 2 Entry 3 Case Attendee Theodore Escamilla John M MD Jasenak RN, Sandee Khalil DO Role Performed Surgeon - Primary Anesthesiologist of Survey Methodologist Record Time In 06/01/19 07:36:00 06/01/19 07:36:00 06/01/19 07:36:00 Time Out 06/01/19 09:46:00 06/01/19 09:46:00 06/01/19 09:46:00 Procedure Arthroplasty Knee Arthroplasty Knee Arthroplasty Knee Total(Right) Total(Right) Total(Right) Last Modified By: Sergio HALL, Sandee Hill RN, Sandee Sutherland RN 06/01/19 09:55:49 06/01/19 09:55:49 06/01/19 09:55:49 Entry 4 Entry 5 Entry 6 Case Attendee Patrica Raymond RN, Stephanie RN Wilkins CST, Rachel Role Performed Customs Investigator Scrub Personnel Scrub Personnel Time In 06/01/19 07:36:00 06/01/19 07:36:00 06/01/19 07:36:00 Time Out 06/01/19 09:46:00 06/01/19 09:46:00 06/01/19 09:46:00 Procedure Arthroplasty Knee Arthroplasty Knee Arthroplasty Knee Total(Right) Total(Right) Total(Right) Last Modified By: Sergio HALL, Sandee Hill RN, Sandee Sutherland RN 06/01/19 09:55:49 06/01/19 09:55:49 06/01/19 09:55:49 General Comments: ABHISHEK PEACOCK REP Surgical Procedures MAGR Pre-Care Text: A.20 Verifies operative procedure, surgical site, and laterality Im.150 Develops individualized plan of care Entry 1 Procedure Arthroplasty Knee Total Primary Procedure Yes Primary Surgeon Theodore Escamilla DO Surgeon Comment RIGHT TOTAL KNEE Start 06/01/19 08:06:00 Stop 06/01/19 09:38:00 Anesthesia Type General Surgical Service Orthopedics Wound Class Clean Technique Details Closure Technique Primary Entire procedure No was performed via laparoscope or robotic assistance Last Modified By: Sandee Hill RN 06/01/19 09:56:01 Post-Care Text: O.730 The patient's care is consistent with the individualized perioperative plan of care General Case Data MAGR Pre-Care Text: A.350.1 Classifies surgical wound Entry 1 Case Information OR MAGR OR 05 Case Level Level 5 Wound Class Clean Specialty Orthopedics ASA Class 3 Diagnosis Preop Diagnosis DJD RIGHT KNEE Postop Same As Preop Yes Postop Diagnosis DJD RIGHT KNEE Blunt or No Is the procedure No penetrating injury considered occured prior to Emergent/Urgent? the start of the procedure: Last Modified By: Sandee Hill RN 06/01/19 08:14:10 Post-Care Text: O.760 Patient receives consistent and comparable care regardless of the setting Time Out MAGR Entry 1 Time out date/time 06/01/19 08:06:00 All team members Yes have introduced themselves by name and role Surgeon, Yes Surgeon reviews Yes anesthesia, nurse critical or confirm patient, unexpected steps, site, procedure operative duration, anticipated blood loss Anesthesia team Yes Nursing team Yes reviews any reviews sterility patient-specific (including concerns indicator results) and equipment issues/concerns Antibiotic Antibiotic Yes Administration Time 07:45 prophylaxis given within the last 60 minutes Is essential N/A imaging displayed? Last Modified By: Sandee Hill RN 06/01/19 08:14:34 Patient Positioning MAGR Pre-Care Text: A.280 Identifies baseline musculoskeletal status Im.40 Positions the patient Im.80 Applies safety devices Entry 1 Procedure Arthroplasty Knee Body Position Supine Total(Right) Left Arm Position Extended on padded arm Right Arm Position Extended on padded arm board board Left Leg Position Extended Right Leg Position Extended Feet Uncrossed? Yes Press Points Checked Yes Positioning Device Arm Boards, Arm Strap, Outcome Met (O.80) Yes Pillow, Safety Strap Last Modified By: Sandee Hill RN 06/01/19 08:14:44 Post-Care Text: E.290 Evaluates musculoskeletal status O.80 Patient is free from signs and symptoms of injury related to positioning Skin Prep MAGR Pre-Care Text: A.30 Verifies allergies Im.270 Performs skin preparation Im.270.1 Implements protective measures to prevent skin and tissue injury due to chemical sources Entry 1 Skin Prep Syntegrity Prep Agents (Im.270) Chlorhexidine Gluconate Prep By Sandee Hill RN, and Alcohol Rani Howard RN Prep Area (Im.270) Leg, Knee, Foot Prep Area Details Right Skin Prep Agent Dry Yes Without Pooling Hair Removal Syntegrity Hair Removal Methods No hair removal performed Outcome Met (O.100) Yes Last Modified By: Sandee Hill RN 06/01/19 08:15:48 Post-Care Text: E.10 Evaluates for signs and symptoms of physical injury to skin and tissue O.100 Patient is free from signs and symptoms of chemical injury Counts Verification MAGR Pre-Care Text: A.20 Verifies operative procedure, surgical site, and laterality A.20.2 Assesses the risk for unintended retained foreign body Im.20 Performs required counts Entry 1 Procedure Arthroplasty Knee Total(Right) Counts Verification Initial Counts Items included in Sponges, Sharps Initial Counts Manual the Initial Count Method Initial Counts Rani Howard RN, Performed By Anya Figueroa CST Counts Verification Final Counts Items Included in Sponges, Sharps Final Count Method Manual Final Count Final Count Status Correct Final Counts Sandee Hill RN, Performed By Rani Howard RN Surgeon notified of Yes final counts status Outcome Met (O.20) Yes Last Modified By: Sandee Hill RN 06/01/19 08:19:30 Post-Care Text: E.50 Evaluates results of the surgical count O.20 Patient is free from unintended retained foreign objects Patient Care Devices MAGR Pre-Care Text: A.200 Assesses risk for normothermia regulation A.40 Verifies presence of prosthetics or corrective devices Im.280 Implements thermoregulation measures Im.60 Uses supplies and equipment within safe parameters Entry 1 Entry 2 Equipment Type FLOWTRON FOOT CUFF REG FORCED WARM AIR UNIT Serial ?# [id number] Equipment Setting PLACED ON NON OPERATIVE 43C LEG, FACTORY DEFAULT SETTINGS Last Modified By: Sandee Hill RN, RN, Cynthia M 06/01/19 08:20:00 06/01/19 08:20:00 Post-Care Text: E.10 Evaluates signs and symptoms of physical injury to skin and tissue O.700 Patient is free from signs and symptoms of injury caused by extraneous objects Tourniquet MAGR Pre-Care Text: A.240 Assesses baseline skin condition Im.120 Implements protective measures to prevent skin or tissue injury due to mechanical sources Entry 1 Tourniquet Type TOURNIQUET Cuff Size 81 cm Setting 250 mmHg Placement Leg upper Padding (Im.120) Yes Placement Details Right Tourniquet Times Applied By Theodore Escamilla Removed By Rani Howard RN DO Outcome Met (O.60) Yes Last Modified By: Sandee Hill RN 06/01/19 08:20:43 Post-Care Text: E.10 Evaluates for signs and symptoms of physical injury to skin and tissue O.60 Patient is free from sign and symptoms of injury caused by extraneous objects General Comments: NOT USED Cautery MAGR Pre-Care Text: A.240 Assesses baseline skin condition A.40 Verifies presence of prosthetics or corrective devices Im.50 Implements protective measures to prevent injury due to electrical sources Entry 1 ESU Type Electrosurgical Unit Identification [id number] Number ESU Settings Syntegrity Cut Setting 75 Coag Setting 75 Grounding Pad Details Grounding Pad Yes Verified By Sandee Hill RN Needed? Grounding Pad Site Table Grounding Pad Within Expiration Yes Date? Outcome Met (O.10) Yes Last Modified By: Sandee Hill RN 06/01/19 08:21:06 Post-Care Text: E.10 Evaluates for signs and symptoms of physical injury to skin and tissue O.10 Patient is free from signs and symptoms of injury related to thermal sources Medication Administration MAGR Pre-Care Text: A.210 Identifies physiological status Im.220 Administers prescribed medications Entry 1 Time Administered 06/01/19 08:27:00 Medication BACITRACIN OINTMENT Route of Admin TOP By Theodore Escamilla DO Outcome Met (O.130) Yes Last Modified By: Sadnee Hill RN 06/01/19 08:28:27 Post-Care Text: E.20 Evaluates response to medications O.130 Patient receives appropriately administered medication(s) Implant Log MAGR Pre-Care Text: A.20 Verifies operative procedure, surgical site, and laterality Im.350 Records implants inserted during the operative or invasive procedure Entry 1 Entry 2 Entry 3 Procedure Arthroplasty Knee Arthroplasty Knee Arthroplasty Knee Total(Right) Total(Right) Total(Right) Implant Action Explant Explant Explant Description BRITTANY BONE SCREW SELF BRITTANY MIS QUAD SPARING BRITTANY MIS QUAD SPARING TAPPING HEADED SCREW HEADED SCREW Implant Information Implant/Explant 06/01/19 08:29:00 06/01/19 08:30:00 06/01/19 08:31:00 Date/Time Implanted/Explanted Theodore Escamilla James Huddleston, James By: Remi Mejias DO Remi DO Size 6.5MM DIAMETER; 35MM 27MM LENGTH 48MM LENGTH LENGTH Bingo [employer] BRITTANY BRITTAYN BRITTANY Catalog # Lot Number [id number] Expiration Date 02/12/29 11/12/28 Serial Number Device Identifier Human Readable RAJNI Machine Readable RAJNI MR Class Implant Usage Data Site Knee R Knee R Knee R Quantity 2 1 1 Reason for Explant Reason Not Retained Explant Disposition [employer] Sterility External Indicator Result Internal Indicator Results Outcome Met (O.30) Yes Yes Yes Last Modified By: Sergio HALL, Sandee Hill RN, Sandee Hill RN, Sandee Vides 06/01/19 08:32:35 06/01/19 08:32:35 06/01/19 08:32:35 Entry 4 Entry 5 Entry 6 Procedure Arthroplasty Knee Arthroplasty Knee Arthroplasty Knee Total(Right) Total(Right) Total(Right) Implant Action Implant Implant Implant Description BRITTANY FEMUR CEMENTED BRITTANY ARTICULAR BRITTANY ALL POLY PATELLA CRUCIATE RETAINING SURFACE MEDIAL CONGRUENT CEMENTED STANDARD Implant Information Implant/Explant 06/01/19 08:51:00 06/01/19 08:52:00 06/01/19 08:54:00 Date/Time Implanted/Explanted Theodore Escamilla James Huddleston, James By: Remi Mejias DO Remi DO Size RIGHT SIZE 9 RIGHT 10MM HEIGHT USE 35MM DIAMETER; 9.0MM WITH TIBIA SIZES E-F/CR THICKNESS FEMUR SIZES 8- [employer]ingo [employer] BRITTANY BRITTANY BRITTANY Catalog # Lot Number [id number] Expiration Date 01/12/14/23 02/12/27 Serial Number Device Identifier Human Readable RAJNI Machine Readable RAJNI MR Class Implant Usage Data Site Knee R Knee R Knee R Quantity 1 1 1 Reason for Explant Reason Not Retained Explant Disposition [employer] Sterility External Indicator Result Internal Indicator Results Outcome Met (O.30) Yes Yes Yes Last Modified By: Sergio HALL, Sandee Hill RN, Sandee Hill RN, Sandee Vides 06/01/19 08:57:03 06/01/19 08:57:03 06/01/19 08:57:03 Entry 7 Entry 8 Entry 9 Procedure Arthroplasty Knee Arthroplasty Knee Arthroplasty Knee Total(Right) Total(Right) Total(Right) Implant Action Implant Implant Implant Description BRITTANY NATURAL TIBIA BIOMET BONE CEMENT NO BIOMENT BONE CEMENT NO CEMENTED ANTI ANTI Implant Information Implant/Explant 06/01/19 08:56:00 06/01/19 08:59:00 06/01/19 09:00:00 Date/Time Implanted/Explanted Theodore Escamilla James Huddleston, James By: Remi Mejias DO Size 5 DEGREE STEMMED RIGHT SIZE E [employer] BRITTANY BIOMENT BIOMENT Catalog # Lot Number [id number] Expiration Date 02/12/29 06/13/23 03/14/23 Serial Number Device Identifier Human Readable RAJNI Machine Readable RAJNI MR Class Implant Usage Data Site Knee R Knee R Knee R Quantity 1 1 1 Reason for Explant Reason Not Retained Explant Disposition [employer] Sterility External Indicator Result Internal Indicator Results Outcome Met (O.30) Yes Yes Yes Last Modified By: Sergio HALL, Sandee Hill RN, Sandee Hill RN, Sandee Vides 06/01/19 08:57:03 06/01/19 09:01:34 06/01/19 09:01:34 Post-Care Text: E.30 Evaluates verification process for correct patient, site, side and level surgery O.30 Patient's procedure is performed on the correct site, side, and level Dressing/Packing MAGR Pre-Care Text: A.350 Assesses susceptibility for infection Im.290 Administer care to wound sites Entry 1 Skin Prep Agent Yes Site Knee Removed Prior to Dressing? Site Details Right Dressing Item Details Dressing Item 4x4's, ABD Tape (Im.290) Elastic Sports Bandage (Im.290) Outcome Met Yes Last Modified By: Sandee Hill RN 06/01/19 09:56:56 Post-Care Text: E.200 Evaluates progress of wound healing O.200 Patient's wound perfusion is consistent with or improved from baseline levels Departure from OR MAGR Entry 1 Present on Depart Oxygen Via Stretcher Post-op Destination PACU Skin DFO Condition Dry Description Condition Intact Description Report Given To Rani Howard RN Airway Maintenance Patient Status Stable Oxygen in Use? Yes Airway Device Simple mask Flow Rate 15 L/min Last Modified By: Sandee Hill RN 06/01/19 09:57:06 Case Comments Finalized By: Sandee Hill RN Document Signatures Signed By: Sandee Hill RN 06/01/19 09:57 [facility] PACU Record MAGR PACU Record [facility] Primary Physician: Theodore Escamilla DO Finalized Date/Time: 06/01/19 10:34:41 Pt. Name: RACHEL ACKERMAN/Sex: 1950 MALE Med Rec #: [id number] Physician: Theodore Escamilla DO Financial #: [id number] Pt. Type: I Room/Bed: [facility] Admit/Disch: 06/01/19 06:00:00 - Institution: PACU Case Times MAGR Entry 1 In PACU I 06/01/19 09:48:00 Discharge from PACU 06/01/19 10:40:00 I Last Modified By: Rani Howard RN 06/01/19 10:34:33 Finalized By: Rani Howard RN Document Signatures Signed By: Rani Howard RN 06/01/19 10:34 [facility] 06-01-2019 MAGR Preoperative Record MAGR Pre-Op Record Summary Primary Physician: Theodore Escamilla DO Finalized Date/Time: 06/01/19 07:51:20 Pt. Name: RACHEL ACKERMAN./Sex: 1950 MALE Med Rec #: [id number] Physician: Theodore Escamilla DO Financial #: [id number] Pt. Type: I Room/Bed: / Admit/Disch: 06/01/19 06:00:00 - Institution: Pre-Op Case Times MAGR Pre-Care Text: Patient will be optimally prepared for surgery. Patient is free from s/s of injury. Provide information to patient/family related to plan of care. Verify patient allergies. Confirm identity and verify consent before the operative or invasive procedure. Entry 1 Patient Arrival Time 06/01/19 06:15:00 Preop Departure 06/01/19 07:37:00 Last Modified By: Anila Victoria RN 06/01/19 07:51:18 Post-Care Text: Patient is prepared mentally and physically and is ready for surgery. The patient remains free from s/s of injury. Patient/family express understanding of plan of care and participate in decisions affecting his or her perioperrative plan of care. Allergies documented appropriately. Patient identifiers and consent correct. General Comments: Pt arrives to psw ambulatory. PT denies pain, cp, sob, cough or flu like symptoms. PT denies pacemaker/defibillator pt has sleep apnea and wears a cpap. Finalized By: Anila Victoria RN Document Signatures Signed By: Anila Victoria RN 06/01/19 07:51 [facility] Nutrition Noteon 06-01-2019 Nutrition Note Chart reviewed; 68 y o male diagnosed with R tka - s/p surgery today; current diet order regular with ensure compact po BID to max po intake with increased needs post op; no weight changes noted; no difficulty with chew/swallow identified; patient currently appears at high nutrition risk d/t age greater than 65/surgery; encourage increase po as jennifer; will monitor po post-op for adequacy, wt/labs for any changes; follow, assist prn ts [facility] Operative Report - Surgeon/P aileen 06-01-2019 Operative Report - Surgeon/Physician Preoperative diagnosis: Osteoarthritis i s degenerative joint disease right knee Postoperative diagnosis: Same Procedure: Right total knee arthroplasty Femur size 9 Tibia size E Patella size35 Tibial tray size 10mm medial constrained Surgeon: Reagan Escamilla D.O. Anesthesia: General Indications for surgery: Radiographic and clinical findings consistent with osteoarthritis/degenerative joint disease with symptoms affecting daily living inhibiting daily activities and failure of conservative treatment Estimated blood loss: 500 Complications: There were no complications Findings: Thinning and absence of articular cartilage findings consistent with advanced osteoarthritis/degenerative joint disease Procedure summary: Patient was brought to the operative suite. Patient was positioned supine. The right leg was sterilely prepped and draped in usual fashion and then a timeout was taken in the operating room. Tourniquet was applied as a precaution but was not inflated during surgery. Hemostasis was pursued with the Bovie and the irrigating bipolar. An anterior incision was made with a medial parapatellar approach. Dissection was carried down to the capsule. The anterior medial tibia was exposed . The fat pad was excised and then the patella was cut in line tendon to tendon. The patella sized out to 5. The patella was prepared with Peg drill and then covered with a metallic disc to protect the bone. The knee was then placed in flexion and the femoral canal was drilled. An intramedullary cutting guide was inserted and the distal femoral cut was taken utilizing a standard 4 degree cut. The knee was dislocated and the meniscus were excised. The extra medullary cutting guide was secured to the tibia and referencing off the spine of the tibia cut was taken perpendicular to the tibia The knee was placed in extension and a 10 mm spacer block was inserted with the drop bart to check for perpendicularity. And also to make sure the knee was balanced in extension. The knee was then placed back in flexion and the femoral sizer was attached to the femur. Femur sized out to nine. Drill holes were made to accommodate the pegs. The sizer was removed and the distal femoral cutting block was inserted. The anterior and posterior cuts were taken followed by the chamfer cuts. Next the femoral trial was impacted in the place and secured in place with two 6.5 mm acetabular screws. The tibia was sized. It sized out to a E. Trial components were inserted and the knee was taken through range of motion. A size E medial constraned tibial spacer fit best and was balanced both in flexion and extension. The spacer was removed and the tibial tray was pinned in place. The tibia was prepared with a drill and a broach. The trial components were removed. The posterior capsule was injected with ropivacaine, clonidine, epinephrine, Toradol and saline. 10 cc in the posterior medial corner and 10 cc in the posterior lateral corner. The bone was washed with pulsatile lavage saline. The bone was dried. Meanwhile the cement had been mixed on the back table. The tibial component was then cemented into place. All excess cement was removed. The femoral component was then cemented into place. The polyethylene tibial spacer was then clicked into place and the knee was placed in terminal extension with compression across the joint. The knee was held in terminal extension with compression across the joint until the cement was completely hardened. Meanwhile the metal protector was removed from the patella. The patella was washed with pulse lavage saline and then dried. The patella button was then cemented into place and held clamped with the knee in extension until the cement was completely hardened. The knee was then taken through range of motion and the patella was tracking midline. There was marked hyperemic overgrown inflamed villonodular appearing synovial tissue in the pouch. This was excised. The medial and lateral epicondylar synovial tissue was injected with the a forementioned injection mixture a total of 10 cc on each side. The knee was balanced both in flexion and extension. The joint was washed with saline and also mixture of saline and Betadine. The knee was then placed in flexion and the capsule was closed with 0 Vicryl suture. The fat layers were closed with 0 Vicryl suture. Subcutaneous layers were closed with 0 Vicryl suture. Skin clips were applied superficially. Bacitracin Adaptic sterile dressings were applied. The patient was then taken to the recovery room. [Electronically Signed on: 06/01/2019 14:01 EST] Theodore Escamilla DO [Verified on: 06/01/2019 14:01 EST] Theodore Escamilla DO [facility] Patient Handouton 06-01-2019 Patient Handout Orthopedics Knee Rehabilitation in the Home After knee surgery, it is important to follow instructions from your health care provider about rehabilitation (rehab). It is important to design a program that is safe and effective for you. Your health care provider and rehabilitation therapist will work with you to meet your specific abilities and needs. What are the benefits? Knee rehab can help to: ? Strengthen your knee. ? Improve the flexibility and movement (range of motion) of your knee joint. ? Reduce swelling. ? Improve blood flow and prevent blood clots. How to do exercises at home ? Continue exercises at home that your health care provider or physical therapist instructed you to do in the hospital. ? Before you exercise: ? Take pain medicines, if told by your health care provider. Do not take the medicine if it makes you feel dizzy or sleepy. ? Do a warm-up activity, such as gentle walking or riding a stationary bike, as told by your health care provider. Doing that warms up your muscles and helps to prevent injury. ? While doing exercises: ? When standing, make sure you are near something sturdy that you can hold onto for balance, such as a heavy chair or the wall. ? Do exercises exactly as told by your health care provider and adjust them as directed. ? As you are recovering, choose an exercise pace that is comfortable for you, and gradually work up to your goal. ? Do not force your knee to bend. ? Do not exercise in a pool (aquatic therapy) until your incision is healed and your health care provider says that you can. Follow these instructions at home: Activity ? Do not use your knee to support (bear) your body weight until your health care provider says that you can. Follow weight-bearing restrictions as told. Use crutches or a walker as told by your health care provider. ? Do not twist or kneel on your injured knee. ? Ask your health care provider what activities are safe for you during recovery, and ask what activities you need to avoid. ? Avoid sitting for a long time without moving. Get up to take short walks every 1?2 hours. Ask for help if you feel weak or unsteady. Managing pain, stiffness, and swelling ? Put ice on affected areas after you exercise, or as needed. Icing can help to relieve joint pain and swelling. ? Put ice in a plastic bag or use the icing device (cold flow pad or cold therapy unit) that you were given. Follow instructions from your health care provider about how to use the icing device. ? Place a towel between your skin and the bag or device. ? Leave the ice on for 20 minutes, 2?3 times a day. ? If directed, apply heat to affected areas before you exercise, or as needed. Heat can reduce the stiffness of your muscles and joints. Use the heat source that your health care provider recommends, such as a moist heat pack or a heating pad. ? Place a towel between your skin and the heat source. ? Leave the heat on for 20?30 minutes. ? Remove the heat if your skin turns bright red. This is especially important if you are unable to feel pain, heat, or cold. You may have a greater risk of getting burned. ? Wear compression stockings as told by your health care provider. These stockings help to prevent blood clots and reduce swelling in your legs. ? Raise (elevate) your legs while sitting or lying down. Do not place your knee on top of pillows to elevate it. Keep your legs straight to prevent your knee from getting stuck in a bent position (contracture). Preventing falls ? Keep your home well-lit and clutter-free, especially in walkways and stairways. Keep floors dry and use non-skid mats. ? Remove tripping hazards from floors, such as throw rugs and cords. ? Install grab bars in bathrooms, and put night-lights in your bedroom and bathroom. ? Wear closed-toe shoes that fit well and support your feet. Wear shoes that have rubber soles or low heels. ? Talk with your health care provider about the [id number] and prescription medicines that you are taking. Some medicines can cause dizziness or changes in blood pressure, which increase your risk of falling. General recommendations ? Teach your family about your condition and how they can participate in your recovery. Include them during a physical therapy session. ? Keep all follow-up visits as told by your health care provider and physical therapist. This is important. Questions to ask your health care provider ? What exercises are safe for me to do? ? How often should I do the exercises? ? How can I manage the pain during exercise? ? What other activities are safe for me to do? Contact a health care provider if: ? You have questions about how to do exercises correctly. ? You have increased difficulty bending your knee. ? You have knee pain that does not go away after you rest and take pain medicines. ? Your prosthesis feels loose. ? You are not able to do exercises. Get help right away if: ? You fall. ? Your incision from surgery breaks open. Summary ? Knee rehab can help to strengthen your knee and improve the flexibility and movement (range of motion) of your knee joint. ? Continue exercises at home that your health care provider or physical therapist instructed you to do in the hospital. ? Call your health care provider if you have questions about how to do exercises correctly. This information is not intended to replace advice given to you by your health care provider. Make sure you discuss any questions you have with your health care provider. Document Released: 04/01/2006 Document Revised: 02/24/2018 Document Reviewed: 02/24/2018 [employer] Patient Education ? 2019 [employer]. [facility] XR Knee One or Two Views Rig hton 06-01-2019 XR Knee One or Two Views Right EXAM: XR Knee One or Two Views Right HISTORY: surgery COMPARISON: None. TECHNIQUE: AP and lateral views of the right knee were obtained with portable technique at 1005 hours. FINDINGS: There are prosthetic devices about the distal femur and tibial plateau in satisfactory position and alignment. Postoperative change about the posterior patellar region appears grossly unremarkable. Soft tissue swelling and air is noted primarily anteriorly compatible with recent surgery. Postoperative rossana are noted anteriorly. No definite acute fracture or dislocation. IMPRESSION: Right knee study demonstrates unremarkable post arthroplasty changes as described. Final Dictated by: Chauncey Rosas MD Dictated DT/TM: 06/01/19 10:26 Signed (Electronic Signature): Chauncey Rosas MD 06/01/19 12:57 p Technologist: NIKITA [facility] Progress Note - Nurseon 05-16 Progress Note - Nurse Spoke with pt and informed him to be her e at 6am and NPO after MN. He verbalizes understanding. [Electronically Signed on: 05/29/2019 09:26 EST] Claudine Beck RN [Verified on: 05/29/2019 09:26 EST] Claudine Beck RN [facility] Vital Signs Date Time Vital Sign Value Performing Clinician Facility 04-01-2023 10:00-0500 Body height 177.8 cm Patrica Cruz Other [facility] Other 04-01-2023 10:00-0500 Body mass index (BMI) [Ratio] 35.15 kg/m2 Patrica Cruz Other [facility] Other 04-01-2023 10:00-0500 Body weight 111.13 kg Patrica Cruz Other [facility] Other 04-01-2023 10:00-0500 Diastolic blood pressure 78 mm[Hg] Patrica Cruz Other [facility] Other 04-01-2023 10:00-0500 Respiratory rate 18 /min Patrica Cruz Other [facility] Other 04-01-2023 10:00-0500 SaO2% (BldA) [Mass fraction] 94 % Patrica Cruz Other [facility] Other 04-01-2023 10:00-0500 Systolic blood pressure 140 mm[Hg] Patrica Cruz Other [facility] Other 03-19-2023 09:15-0500 Body height 177.8 cm Patrica Cruz Other [facility] Other 03-19-2023 09:15-0500 Body mass index (BMI) [Ratio] 34.43 kg/m2 Patrica Cruz Other [facility] Other 03-19-2023 09:15-0500 Body temperature 97.5 [degF] Patrica Cruz Other [facility] Other 03-19-2023 09:15-0500 Body weight 108.86 kg Patrica Cruz Other [facility] Other 03-19-2023 09:15-0500 Diastolic blood pressure 78 mm[Hg] Patricatarsha Cruz Other [facility] Other 03-19-2023 09:15-0500 Respiratory rate 18 /min Patrica Anthony Other [facility] Other 03-19-2023 09:15-0500 SaO2% (BldA) [Mass fraction] 97 % Patrica Anthony Other [facility] Other 03-19-2023 09:15-0500 Systolic blood pressure 120 mm[Hg] Patrica Cruz Other [facility] Other 02-20-2023 10:35-0500 Body height 177.8 cm Kesha Clifton MD Work Phone: [facility] 02-20-2023 10:35-0500 Body temperature 97.7 [degF] Kesha Clifton MD Work Phone: [facility] 02-20-2023 10:35-0500 Body weight 114.85 kg Kesha Clifton MD Work Phone: [facility] 02-20-2023 10:35-0500 Diastolic blood pressure 74 mm[Hg] Kesha Clifton MD Work Phone: [facility] 02-20-2023 10:35-0500 Heart rate 65 /min Kesha Clifton MD Work Phone: [facility] 02-20-2023 10:35-0500 Respiratory rate 16 /min Kesha Clifton MD Work Phone: [facility] 02-20-2023 10:35-0500 SaO2% (BldA) [Mass fraction] 96 % Kesha Clifton MD Work Phone: [facility] 02-20-2023 10:35-0500 Systolic blood pressure 130 mm[Hg] Kesha Clifton MD Work Phone: [facility] 11-12-2022 12:16-0400 Blood Pressure Location Elia HUERTA [facility] 11-12-2022 12:16-0400 Diastolic blood pressure 86 mm[Hg] Elia HUERTA [facility] 11-12-2022 12:16-0400 Heart rate 79 /min Elia HUERTA [facility] 11-12-2022 12:16-0400 Respiratory rate 16 /min Elia HUERTA [facility] 11-12-2022 12:16-0400 Systolic blood pressure 142 mm[Hg] Elia HUERTA [facility] 09-27-2022 09:00-0400 Body height 177.8 cm Patrica Cruz Other [facility] Other 09-27-2022 09:00-0400 Body mass index (BMI) [Ratio] 36.15 kg/m2 Patrica Cruz Other [facility] Other 09-27-2022 09:00-0400 Body temperature 98.1 [degF] Patrica Cruz Other [facility] Other 09-27-2022 09:00-0400 Body weight 114.31 kg Patrica Anthony Other [facility] Other 09-27-2022 09:00-0400 Diastolic blood pressure 76 mm[Hg] Patrica Cruz Other [facility] Other 09-27-2022 09:00-0400 SaO2% (BldA) [Mass fraction] 97 % Patrica Cruz Other [facility] Other 09-27-2022 09:00-0400 Systolic blood pressure 128 mm[Hg] Patrica Cruz Other [facility] Other 02-26-2022 11:00-0500 Body height 177.8 cm Patrica Cruz Other [facility] Other 02-26-2022 11:00-0500 Body mass index (BMI) [Ratio] 35.88 kg/m2 Patrica Cruz Other [facility] Other 02-26-2022 11:00-0500 Body temperature 96.7 [degF] Patrica Cruz Other [facility] Other 02-26-2022 11:00-0500 Body weight 113.45 kg Patrica Cruz Other [facility] Other 02-26-2022 11:00-0500 Diastolic blood pressure 70 mm[Hg] Patrica Cruz Other [facility] [employer] Other 02-26-2022 11:00-0500 Respiratory rate 18 /min Patrica Cruz Other [facility] Other 02-26-2022 11:00-0500 SaO2% (BldA) [Mass fraction] 98 % Patrica Anthony Other [facility] [employer] Other 02-26-2022 11:00-0500 Systolic blood pressure 128 mm[Hg] Patrica Anthony Other [facility] [employer] Other 09-05-2021 10:54-0400 Blood Pressure Location Will Rivera Jr. [facility] 09-05-2021 10:54-0400 Diastolic blood pressure 82 mm[Hg] Will Rivera Jr. [facility] 09-05-2021 10:54-0400 Heart rate 71 /min Will Rivera Jr. [facility] 09-05-2021 10:54-0400 Respiratory rate 16 /min Will Rivera Jr. [facility] 09-05-2021 10:54-0400 Systolic blood pressure 137 mm[Hg] Will Rivera Jr. [facility] 08-24-2021 11:00-0400 Body height 177.8 cm Patrica Cruz Other [facility] Other 08-24-2021 11:00-0400 Body mass index (BMI) [Ratio] 36.21 kg/m2 Patrica Anthony Other [facility] Other 08-24-2021 11:00-0400 Body weight 114.49 kg Patrica Anthony Other [facility] Other 08-24-2021 11:00-0400 Diastolic blood pressure 82 mm[Hg] Patrica Cruz Other [facility] Other 08-24-2021 11:00-0400 Respiratory rate 18 /min Patrica Anthony Other [facility] Other 08-24-2021 11:00-0400 SaO2% (BldA) [Mass fraction] 96 % Patrica Anthony Other [facility] Other 08-24-2021 11:00-0400 Systolic blood pressure 122 mm[Hg] Patrica Anthony Other [facility] Other 02-22-2021 11:00-0500 Body height 177.8 cm Patrica Cruz Other [facility] Other 02-22-2021 11:00-0500 Body mass index (BMI) [Ratio] 36.07 kg/m2 Patrica Cruz Other [facility] Other 02-22-2021 11:00-0500 Body temperature 97.4 [degF] Patrica Cruz Other [facility] Other 02-22-2021 11:00-0500 Body weight 114.04 kg Patrica Cruz Other [facility] Other 02-22-2021 11:00-0500 Diastolic blood pressure 80 mm[Hg] Patrica Cruz Other [facility] Other 02-22-2021 11:00-0500 Respiratory rate 18 /min Patrica Cruz Other [facility] Other 02-22-2021 11:00-0500 SaO2% (BldA) [Mass fraction] 97 % Patrica Cruz Other [facility] Other 02-22-2021 11:00-0500 Systolic blood pressure 130 mm[Hg] Patrica Cruz Other [facility] Other Encounters Encounter Date Encounter Type Care Provider Facility Start: 05-06-2023 ambulatory Elia Raineyi ty:[facility] Start: 04-22-2023 ambulatory Elia Raineyi ty:[facility] Start: 04-18-2023 ambulatory Elia Raineyi ty:[id number] Start: 04-01-2023 End: 04-01-2023 ambulatory Patrica Cruz Other [facility] Other Start: 04-01-2023 Office outpatient vi sit 25 minutes Patrica Cruz [facility] Start: 03-19-2023 End: 03-19-2023 ambulatory Patrica Cruz Other [facility] Other Start: 03-19-2023 Office outpatient vi sit 25 minutes Patrica Cruz [facility] Start: 03-18-2023 End: 03-18-2023 ambulatory Patrica Cruz Other [facility] Other Start: 03-18-2023 Telephone encounter Patrica Anthony [facility] Start: 03-05-2023 End: 03-05-2023 ambulatory Patrica Cruz Other [facility] Other Start: 03-05-2023 Telephone encounter Patrica Anthony [facility] Start: 03-01-2023 ambulatory Elia Raineyi ty:[facility] Start: 02-20-2023 End: 02-20-2023 ambulatory [facility] Facility:[facility] Start: 02-20-2023 End: 02-20-2023 ambulatory Kesha Clifton MD Work Phone: Hematology/Oncology Comment on above: Thrombocytopenia (HC C) (Primary Dx); Platelets decreased (HCC) Start: 02-20-2023 End: 02-20-2023 Patient encounter procedure Kesha Clifton MD Work Phone: [place] Start: 02-11-2023 ambulatory Elia HUERTA Facili ty:[facility] [place] Start: 01-28-2023 Telephone encounter Crystal Cooley RN Hematology/Oncology Comment on above: Patient Update Start: 01-23-2023 End: 01-23-2023 [facility] Start: 01-22-2023 Chart abstracting Kesha sierra MD Work Phone: Hematology/Oncology Start: 12-25-2022 End: 12-26-2022 ambulatory Elia HUERTA [facility] Start: 12-25-2022 End: 12-25-2022 Patient encounter procedure Elia HUERTA [facility] Start: 11-12-2022 End: 11-13-2022 ambulatory Elia HUERTA Facility:[facility] [place] Start: 11-12-2022 End: 11-12-2022 Patient encounter procedure Elia HUERTA [facility] Start: 11-07-2022 End: 11-07-2022 ambulatory Genaro Sheldon Facility:[facility] Start: 11-07-2022 End: 11-07-2022 ambulatory DNP Patrica Cruz Work Phone: [facility] Work Phone: Start: 11-07-2022 End: 11-07-2022 Patient encounter procedure DNP Patrica Cruz Work Phone: [facility] Work Phone: Start: 10-08-2022 End: 10-08-2022 ambulatory Patrica Anthony Other [facility] Other Start: 10-08-2022 Telephone encounter Patrica [facility] Start: 09-27-2022 End: 09-27-2022 ambulatory Patrica Kapforrest Other [facility] Other Start: 09-27-2022 Patient encounter procedure Patrica Anthony [facility] Start: 02-26-2022 End: 02-26-2022 ambulatory Patrica Kaple Other [facility] Other Start: 02-26-2022 Office outpatient visit 25 minutes Patrica Anthony [facility] Start: 12-26-2021 End: 12-26-2021 ambulatory Patrica Kaple Other [facility] Other Start: 12-26-2021 Telephone encounter Patrica Anthony [facility] Start: 09-05-2021 End: 09-05-2021 Patient encounter procedure Will Rivera Jr. [facility] Start: 08-24-2021 End: 08-24-2021 ambulatory Patrica Luqueforrest Other [facility] Other Start: 08-24-2021 Patient encounter procedure Patrica Cruz [facility] Start: 02-22-2021 End: 02-22-2021 ambulatory Patrica Cruz Other [facility] Other Start: 02-22-2021 Office outpatient visit 25 minutes Patrica Anthony [facility] Start: 09-22-2020 ambulatory PATRICAHENNA CRUZ Facility :[facility] Start: 09-02-2020 End: 09-03-2020 ambulatory PATRICA ANTHONY Facility:[facility] Start: 08-31-2020 End: 09-01-[address] WILL RIVERA JR Facility:[facility] Start: 06-01-2020 End: 06-02-2020 ambulatory NONE LISTED REQUEST Facility:[facility] Start: 05-09-2020 End: 05-10-2020 ambulatory NONE LISTED REQUEST Facility:[facility] Procedures Date Procedure Procedure Detail Performing Clinician Start: 08-31-[address] JUAN R Carmichael ISTED REQUEST Comment on above: Performed By: #### P SAD #### [facility] [address] [place] [address] Martha Yancey Start: 02-13-2017 Nasal sinus procedure D matti Rivera Jr. Start: 08-13-2016 Excision of basal cell carcinoma iWll Rivera Jr. Start: 02-14-2016 Cataract surgery Will Rivera Jr. Start: 04-15-2015 Colonoscopy Will viveros Jr. Start: 06-13-2014 Arthroscopy of knee Eligio Rivera Jr. Start: 04-15-1999 Pharyngeal operation for obstructive sleep apnea and snoring Will Rivera Jr. Tonsillectomy Will adler Plan of Treatment Date Care Activity Detail Author Start: 01-23-2026 Diabetes Screening Diabetes Screenin g [facility] Start: 12-14-2022 Covid-19 Vaccine ( season) Covid-19 Vaccine ( season) [facility] Start: 12-14-2022 Influenza vaccination Influenza Vacc ine (#1) [facility] Start: 04-15-2022 Advance Directive Discussion Advance Directive Discussion [facility] Start: 04-15-2022 Depression Assessment Depression Ass essment [facility] Start: 10-20-2018 Urine microalbumin profile DTa P,Tdap,Td Vaccine (1 - Tdap) [facility] Start: 11-20-2015 Pneumococcal Vaccine : 65+ (1 - PCV) Pneumococcal Vaccine: 65+ (1 - PCV) [facility] Start: 2010 RSV Vaccine (1 - 1-d ose 60+ series) RSV Vaccine (1 - 1-dose 60+ series) [facility] Start: 2000 Shingrix Vaccine (1 of 2) Shingrix V accine (1 of 2) [facility] Start: 11-20-1995 Cologuard (FIT-DNA) Cologuard (FIT-D NA) [facility] Start: 11-20-1995 Colonoscopy Colonoscopy [facility] Start: 11-20-1995 Colorectal Cancer Screening Colorectal Cancer Screening [facility] Start: 11-20-[address] COLONOGRAPHY [facility] Start: 11-20-1995 Diabetes Screening Diabetes Screenin g [facility] Start: 11-20-1995 Fecal Occult Blood Fecal Occult Bloo d [facility] Start: 11-20-1995 SIGMOIDOSCOPY SIGMOIDOSCOPY [facility] Start: 1985 Lipid 1996 panel - S chaka or Plasma Lipid Screening [facility] Start: 1969 Urine microalbumin profile DTa P,Tdap,Td Vaccine (1 - Tdap) [facility] Start: 1968 Hepatitis C Screening Hepatitis C Sc gurinder [facility] Start: 05-22-1951 Covid-19 Vaccine (#1) Covid-19 Vacci ne (#1) [facility] Start: 1950 Abdominal Aortic Ane urysm Screening Abdominal Aortic Aneurysm Screening [facility] Immunizations Immunization Date Immunization Notes Care Provider Giuliano sarah 02-26-2022 influenza, high dose seasonal, preservative-free Patrica Cruz Other [facility] 02-26-2022 influenza virus vaccine, unspecified formulation Crystal Cooley RN [facility] 04-16-2021 COVID-19 Vaccine Pfi zer - Documentation Purposes Only Patrica Cruz Other [facility] Other 03-23-2020 influenza (HD-IIV4) vaccine, age 65+ yr, high dose, quadrivalent, PF (FLUZONE HIGH-DOSE) Crystal Cooley RN [facility] 03-23-2020 influenza, high dose seasonal, preservative-free Patrica Cruz Other [facility] 03-23-2020 pneumococcal polysaccharide vaccine, 23 valent Patrica Cruz Other [facility] 03-09-2019 pneumococcal conjuga te vaccine, 13 valent Patrica Cruz Other [facility] 03-09-2019 influenza, high dose seasonal, preservative-free Patrica Cruz Other [facility] 10-19-2018 tetanus and diphther ia toxoids, adsorbed, preservative free, for adult use (5 Lf of tetanus toxoid and 2 Lf of diphtheria toxoid) Patrica Cruz Other [facility] 04-18-2018 Influenza, injectabl e, Madin Annalisa Canine Kidney, preservative free, quadrivalent Crystal Cooley RN [facility] 04-18-2018 influenza, seasonal, injectable Patrica Cruz Other [facility] 04-11-2017 influenza, injectabl e, quadrivalent, contains preservative Crystal Cooley RN [facility] 01-14-2016 influenza, injectabl e, quadrivalent, preservative free Crystal Cooley RN [facility] 01-07-2016 influenza, seasonal, injectable Patrica Cruz Other [facility] 12-14-2013 influenza, injectabl e, madin annalisa canine kidney, preservative free Crystal Cooley RN [facility] Payers Date Payer Category Payer Unknown MMO MMO MEDICARE SUPPLEMENT [id number] 2021-Present [phone] [address] [place] [address] Indemnity [id number] 2015 Medicare MEDICARE MEDICAR E A AND B [id number] 2015-Present [phone] [address] [address] [place] [address] Medicare [id number] 1959 Medicare [id number] 1959 Self-pay 1959 Unknown [id number] 1950 Unknown [id number] 1950 Unknown [id number] 1950 Unknown [id number] 1950 Unknown [id number] 1950 Unknown [id number] 1950 Unknown [id number] 1950 Unknown [id number] 1950 Unknown [id number] 1950 Unknown [id number] Unknown [id number] Unknown [id number] Unknown [id number] Social History Date Type Detail Facility Start: 09-05-2021 End: 01-23-2023 Tobacco smoking status Ex-smoker (finding) [facility] Other Start: 01-22-2023 End: 01-23-2023 Sex Assigned At Male [facility] [employer] Other Start: 1950 Sex Assigned At Male [facility] History of tobacco use Current smoker [facility] History of tobacco use Cigarette Smoker [facility] History of tobacco use Passive smoker [facility] Start: 01-22-2023 End: 01-23-2023 History of Social function [facility] Start: 1950 Sex Assigned At Not on file [facility] Start: 01-23-2023 Tobacco use and exposure Smokeless tobacco non-user [facility] Start: 01-23-2023 End: 02-20-2023 Alcohol intake Ex-drinker (finding) [facility] National Score (1-100), lower number is lower risk 64 [facility] Functional Status Date Assessment Result Facility 12-25-2022 Functional Status N/A [facility] 11-12-2022 Functional Status N/A [facility] Clinical Notes 02-22-2021 to 04-01-2023 Note Date & Type Note Facility 04-01-2023 Evaluation note Encounter Date Diagnosis Assessment Notes Mar, Controlled type 2 diabetes mellitus without complication, without long-term current use of insulin (ICD-10 - E11.9) Hgba1c in the office now shows type II diabetes, this is reviewed with him today. He declines any further medication being added at this time and would like to focus on diet and exercise changes and have it rechecked in 3 months. He will follow up in 3 months for recheck in this. Patient is advised to work on healthy diet choices and appropriate servings, weight control, regular exercise as directed, reduced fat intake, and salt avoidance. Patient voiced understanding of this and agrees to this plan. Mar, Newly diagnosed diabetes (ICD-10 - E11.9) See above treatment plan. Mar, Elevated blood pressure reading without diagnosis of hypertension (ICD-10 - R03.0) Patient blood pressure reading elevated while in the office today. Instructed patient to check blood pressures at home daily. Patient to notify office should SBP > 140 or DBP > 90 consistently. Patient verbalizes understanding and agrees to treatment plan. Mar, Mixed hyperlipidemia (ICD-10 - E78.2) Currently taking Zetia 10 mg daily and Atorvastatin 80 mg daily. Routine lab work ordered previously, he will complete. Will continue current treatment plan pending lab results. , Take medication as prescribed, keep follow up appointments, get any testing that's been ordered done in a timely fashion. Do not smoke. Call if any questions or problems. For Cholesterol: Patient is advised to work on healthy diet choices and appropriate servings, weight control, regular exercise as directed, and reduce fat intake. Mar, Generalized anxiety disorder (ICD-10 - F41.1) No suicidal or homicidal ideations. Well controlled at this time with Buspar 30 mg BID and Sertraline 100 mg BID. Will continue current treatment plan at this time. Mar, Moderate episode of recurrent major depressive disorder (ICD-10 - F33.1) No suicidal or homicidal ideations. Well controlled at this time with Buspar 30 mg BID and Sertraline 100 mg BID . Will continue current treatment plan at this time. Mar, Asthma (ICD-10 - J45.909) Still mildly flared up from his COVID episode. Will refill his Zithromax as it was almost completely resoloved while taking and he needs to be back to baseline for upcoming prostate surgery. Currently taking Breo 200/25 mcg inhalation 1 puff daily. Will continue current treatment plan at this time. He may consider referral to pulmonary at his next OV possibly, he will let us know. Mar, Obstructive sleep apnea (adult) (pediatric) (ICD-10 - G47.33) Patient is very compliant with JOSE [employer]GEL BIPAP machine. Will continue current treatment plan at this time. Consult notes reviewed from sleep lab. Continue to follow with Dr. Sheldon at sleep lab. Mar, Benign prostatic hyperplasia with lower urinary tract symptoms (ICD-10 - N40.1) He will be having surgery with his urologist. He is to continue to follow with urology. He will be seeing Dr. Huerta soon. Mar, Abnormality of abdominal aorta (ICD-10 - Q25.40) He had an abnormality of his aorta in 2016. It was recommended to repeat these every year. He completed in 2022 but we never received results. These are requested today from [facility]. Mar, Obesity (BMI 35.0-39.9 without comorbidity) (ICD-10 - E66.9) Patient is advised to work on healthy diet choices and appropriate servings, weight control, regular exercise as directed, reduced fat intake, and salt avoidance. Patient voiced understanding of this and agrees to this plan. [employer] Other 12-05-2023 Evaluation note* Encounter Date Diagnosis Assessment Notes Treatment Notes Treatment Clinical Notes Mar, COVID-19 (ICD-10 - U07.1) No warning s/s present today. Seems to be improving for the most part. No fevers, no trouble breathing, lung sounds clear. However, having green drainage, green sputum and mild increased cough. Not needing albuterol inhaler. Will rx him Zithromax to help with symptoms and in hopes of still having his surgery on of this week with urology and Dr. Huerta. He will call Dr. Huerta and update them with his symptoms. Medication profile and possible SE reviewed with patient. Take as directed. Notify office if not improving or persisting. He plans on following up with pulmonary for asthma in the future after urology procedure. He will call for referral when needed. Warning s/s reviewed with patient today. Patient to go immediately to the ER should pt experience any of these. Patient verbalizes understanding and agrees to treatment plan. Mar, Bronchitis (ICD-10 - J40) See above treatment plan. [employer] Other 11-21-2023 Evaluation note* Encounter Date Diagnosis Assessment Notes Treatment Notes Treatment Clinical Notes Feb, COVID-19 (ICD-10 - U07.1) [employer] Other 11-08-2023 NoteHNO ID: [id number] Author: Kesha Clifton MD Service: ? Author Type: Physician Type: Progress Notes Filed: 02/20/2023 10:57 AM Note Text: PATIENT NAME: Rachel Ackerman CLINIC NO.: [id number] ATTENDING PHYSICIAN: Kesha Clifton MD DATE OF SERVICE: February 20, 2023 Dear here is an update on a follow up visit on male Rachel Ackerman at the clinic 02/20/2023 Diagnosis: Thrombocytopenia Treatment History: HPI: Rachel Ackerman is a 72 year old year old male here for follow up. Doing well and awaiting surgery PAST MEDICAL HISTORY Diagnosis Date Anxiety Asthma BPH with urinary obstruction Depressive disorder Hyperlipidemia Nocturia JOSE ANGEL (obstructive sleep apnea) Platelets decreased (HCC) Prediabetes Urinary retention Social History Tobacco Use Smoking status: Former Types: Cigarettes Passive exposure: Past Smokeless tobacco: Never Substance Use Topics Alcohol use: Not Currently Drug use: Never FAMILY HISTORY Problem Relation Age of Onset Heart disease Mother Hypertension Father Alcohol abuse Father Heart disease Father other (Bone Cancer) Sister Past medical, social and family history reviewed without any changes. REVIEW OF SYSTEMS GENERAL: No weight loss, malaise or fevers. No night sweats. HEENT: Negative for headaches, No changes in hearing or vision, no nose bleeds or other nasal problems. RESPIRATORY: Negative for cough, wheezing and shortness of breath CARDIOVASCULAR: Negative for chest pain, leg swelling and palpitations GI: Negative for abdominal discomfort, blood in stools or black stools and change in bowel habits : Negative for dysuria, frequency and incontinence MUSCULOSKELETAL: Negative for joint pain or swelling, back pain, and muscle pain. SKIN: Negative for lesions, rash, and itching. HEMATOLOGY/LYMPHOLOGY Negative for prolonged bleeding, bruising easily, and swollen nodes. NEURO: Negative for numbness or tingling of hands/feet. No weakness. PHYSICAL EXAMINATION: BP 130/74 Pulse 65 Temp (Src) 97.7 (Temporal) Resp 16 Ht 5' 10 (1.78m) Wt 253 lb 3.2 oz (114.9kg) SpO2 96% BMI 36.33 kg/(m2). Wt 114.9 kg (253 lb 3.2 oz) BMI 36.33 kg/m2 Last 3 Encounter Wt Readings: Date: Wt: 02/20/2023 114.9 kg (253 lb 3.2 oz) 01/23/2023 114.3 kg (252 lb) General appearance:ECOG PERFORMANCE STATUS: Patient in NAD. Skin: Skin color, texture, turgor normal. No rashes or lesions. Eyes: Anicteric sclera. Pupils are equally round and reactive to light. Extraocular movements are intact. Lymph Nodes: No cervical, supraclavicular, axillary or inguinal adenopathy. Oropharynx: Lips, mucosa, and tongue normal. Back: No pain to percussion. Negative SLR test Lungs clear to auscultation, No wheezing or rhonchi Heart: RRR without murmur, gallop, or rubs. Abdomen soft, non-tender. No masses, organomegaly Extremities: No deformities. No edema Neuro: Gait and speech normal. Reflexes normal and symmetric. Muscular strength intact. Sensation grossly intact. Rectal: Deferred : Deferred LABS: Glucose (mg/dL) Date Value 01/23/2023 89 Potassium (mmol/L) Date Value 01/23/2023 4.2 Sodium (mmol/L) Date Value 01/23/2023 139 Chloride (mmol/L) Date Value 01/23/2023 103 CO2 (mmol/L) Date Value 01/23/2023 23 Creatinine (mg/dL) Date Value 01/23/2023 0.98 BUN (mg/dL) Date Value 01/23/2023 15 Anion Gap (mmol/L) Date Value 01/23/2023 13 Calcium, Total (mg/dL) Date Value 01/23/2023 9.0 Protein, Total (g/dL) Date Value 01/23/2023 6.9 01/23/2023 6.7 Albumin (g/dL) Date Value 01/23/2023 4.7 Bilirubin, Total (mg/dL) Date Value 01/23/2023 1.3 Alkaline Phosphatase (U/L) Date Value 01/23/2023 97 AST (U/L) Date Value 01/23/2023 29 ALT (U/L) Date Value 01/23/2023 38 WBC Date Value Ref Range Status 01/23/2023 7.60 3.70 - 11.00 k/uL Final RBC Date Value Ref Range Status 01/23/2023 5.37 4.20 - 6.00 m/uL Final Hemoglobin Date Value Ref Range Status 01/23/2023 15.4 13.0 - 17.0 g/dL Final Hematocrit Date Value Ref Range Status 01/23/2023 44.7 39.0 - 51.0 % Final MCV Date Value Ref Range Status 01/23/2023 83.2 80.0 - 100.0 fL Final MCH Date Value Ref Range Status 01/23/2023 28.7 26.0 - 34.0 pg Final MCHC Date Value Ref Range Status 01/23/2023 34.5 30.5 - 36.0 g/dL Final RDW-CV Date Value Ref Range Status 01/23/2023 13.5 11.5 - 15.0 % Final Platelet Count Date Value Ref Range Status 01/23/2023 128 (L) 150 - 400 k/uL Final MPV Date Value Ref Range Status 01/23/2023 9.2 9.0 - 12.7 fL Final Abs Neut Date Value Ref Range Status 01/23/2023 4.36 1.45 - 7.50 k/uL Final Lymphocytes % Date Value Ref Range Status 01/23/2023 31.6 % Final Abs Lymph Date Value Ref Range Status 01/23/2023 2.40 1.00 - 4.00 k/uL Final Monocytes % Date Value Ref Range Status 01/23/2023 7.9 % Final Abs Seward Date Value Ref Range (more content not included)...[facility] 02-20-2023 History of Present illness Narrative* Kesha Clifton MD - 02/20/2023 10:50 AM EST Images from the original note were not included. PATIENT NAME: Rachel Ackerman [facility] NO.: [id number] ATTENDING PHYSICIAN: Kesha Clifton MD DATE OF SERVICE: February 20, 2023 Dear here is an update on a follow up visit on male Rachel Ackerman at the clinic 02/20/2023 Diagnosis: Thrombocytopenia Treatment History: HPI: Rachel Ackerman is a 72 year old year old male here for follow up. Doing well and awaiting surgery PAST MEDICAL HISTORY Diagnosis Date Anxiety Asthma BPH with urinary obstruction Depressive disorder Hyperlipidemia Nocturia JOSE ANGEL (obstructive sleep apnea) Platelets decreased (HCC) Prediabetes Urinary retention Social History Tobacco Use Smoking status: Former Types: Cigarettes Passive exposure: Past Smokeless tobacco: Never Substance Use Topics Alcohol use: Not Currently Drug use: Never FAMILY HISTORY Problem Relation Age of Onset Heart disease Mother Hypertension Father Alcohol abuse Father Heart disease Father other (Bone Cancer) Sister Past medical, social and family history reviewed without any changes. REVIEW OF SYSTEMS GENERAL: No weight loss, malaise or fevers. No night sweats. HEENT: Negative for headaches, No changes in hearing or vision, no nose bleeds or other nasal problems. RESPIRATORY: Negative for cough, wheezing and shortness of breath CARDIOVASCULAR: Negative for chest pain, leg swelling and palpitations GI: Negative for abdominal discomfort, blood in stools or black stools and change in bowel habits : Negative for dysuria, frequency and incontinence MUSCULOSKELETAL: Negative for joint pain or swelling, back pain, and muscle pain. SKIN: Negative for lesions, rash, and itching. HEMATOLOGY/LYMPHOLOGY Negative for prolonged bleeding, bruising easily, and swollen nodes. NEURO: Negative for numbness or tingling of hands/feet. No weakness. PHYSICAL EXAMINATION: BP 130/74 Pulse 65 Temp (Src) 97.7 (Temporal) Resp 16 Ht 5' 10 (1.78m) Wt 253 lb 3.2 oz (114.9kg) SpO2 96% BMI 36.33 kg/(m^2). Wt 114.9 kg (253 lb 3.2 oz) BMI 36.33 kg/m2 Last 3 Encounter Wt Readings: Date: Wt: 02/20/2023 114.9 kg (253 lb 3.2 oz) 01/23/2023 114.3 kg (252 lb) General appearance:ECOG PERFORMANCE STATUS: Patient in NAD. Skin: Skin color, texture, turgor normal. No rashes or lesions. Eyes: Anicteric sclera. Pupils are equally round and reactive to light. Extraocular movements are intact. Lymph Nodes: No cervical, supraclavicular, axillary or inguinal adenopathy. Oropharynx: Lips, mucosa, and tongue normal. Back: No pain to percussion. Negative SLR test Lungs clear to auscultation, No wheezing or rhonchi Heart: RRR without murmur, gallop, or rubs. Abdomen soft, non-tender. No masses, organomegaly Extremities: No deformities. No edema Neuro: Gait and speech normal. Reflexes normal and symmetric. Muscular strength intact. Sensation grossly intact. Rectal: Deferred : Deferred LABS: Glucose (mg/dL) Date Value 01/23/2023 89 Potassium (mmol/L) Date Value 01/23/2023 4.2 Sodium (mmol/L) Date Value 01/23/2023 139 Chloride (mmol/L) Date Value 01/23/2023 103 CO2 (mmol/L) Date Value 01/23/2023 23 Creatinine (mg/dL) Date Value 01/23/2023 0.98 BUN (mg/dL) Date Value 01/23/2023 15 Anion Gap (mmol/L) Date Value 01/23/2023 13 Calcium, Total (mg/dL) Date Value 01/23/2023 9.0 Protein, Total (g/dL) Date Value 01/23/2023 6.9 01/23/2023 6.7 Albumin (g/dL) Date Value 01/23/2023 4.7 Bilirubin, Total (mg/dL) Date Value 01/23/2023 1.3 Alkaline Phosphatase (U/L) Date Value 01/23/2023 97 AST (U/L) Date Value 01/23/2023 29 ALT (U/L) Date Value 01/23/2023 38 WBC Date Value Ref Range Status 01/23/2023 7.60 3.70 - 11.00 k/uL Final RBC Date Value Ref Range Status 01/23/2023 5.37 4.20 - 6.00 m/uL Final Hemoglobin Date Value Ref Range Status 01/23/2023 15.4 13.0 - 17.0 g/dL Final Hematocrit Date Value Ref Range Status 01/23/2023 44.7 39.0 - 51.0 % Final MCV Date Value Ref Range Status 01/23/2023 83.2 80.0 - 100.0 fL Final MCH Date Value Ref Range Status 01/23/2023 28.7 26.0 - 34.0 pg Final MCHC Date Value Ref Range Status 01/23/2023 34.5 30.5 - 36.0 g/dL Final RDW-CV Date Value Ref Range Status 01/23/2023 13.5 11.5 - 15.0 % Final Platelet Count Date Value Ref Range Status 01/23/2023 128 (L) 150 - 400 k/uL Final MPV Date Value Ref Range Status 01/23/2023 9.2 9.0 - 12.7 fL Final Abs Neut Date Value Ref Range Status 01/23/2023 4.36 1.45 - 7.50 k/uL Final Lymphocytes % Date Value Ref Range Status 01/23/2023 31.6 % Final Abs Lymph Date Value Ref Range Status 01/23/2023 2.40 1.00 - 4.00 k/uL Final Monocytes % Date Value Ref Range Status 01/23/2023 7.9 % Final Abs Seward Date Value Ref Range Status 01/23/2023 0.60 <0.87 k/uL Final Eosinophils % Date Value Ref Range Status 01/23/2023 1.6 % Final Abs Eosin Date Value Ref Range Status 01/23/2023 0.12 <0.46 k/uL Final Basophils % Date Value Ref Range Status 01/23/2023 1.1 % Final Abs Baso Date Value Ref Range Status 01/23/2023 0.08 <0.11 k/uL Final PATH: Imaging: US Abdomen 01/2023: Assessment and Plan: Rachel Ackerman is a 72 year old year old male here for follow up. Thrombocytopenia- Chronic and work up negative and US no hepatic and or splenic abnormalities. Safeto proceed with surgery as discussed previously and see us on an as needed basis Thank you for the kind referral. If there are any questions and or concerns please do not hesitate to contact me at [phone]. Kesha Clifton MD Hematology/Medical Oncology [facility]as spent a total of 20 minutes on the date of the service which included preparing to see the patient, [id number] patient care, completing clinical documentation, obtaining and/or reviewing separately obtained history, and counseling and educating the patient/family/caregiver. CC: Elia Huerta MD documented [facility] encounterZ[facility]10-[facility] Miscellaneous Notes* [facility]/28/[facility] 3:07 PM EDT Office note faxed to Dr. Huerta. * Telephone Encounter - Crystal Cooley RN - 01/28/2023 2:28 PM EDT Nimisha can you forward the progress note as requested per BERNARDINO Cooley RN * Telephone Encounter - Kesha Clifton MD - 01/28/2023 2:23 PM EDT Can we make sure that my progress note is faxed tp Dr. Huerta office please * Telephone Encounter - Kesha Clifton MD - 01/28/2023 2:23 PM EDT Yes. I sawe the patient and had requested my progress note to be faxed to him * Telephone Encounter - Crystal Cooley RN - 01/28/2023 12:46 PM EDT Call received from Mary @ Dr Huerta office to notify that patient is scheduled for TURP 02/07 and would like to know if patient is cleared from your standpoint for procedure. Advise Crystal Cooley RN Triage please fax to [phone] or call [phone] c/o Mary documented in this encounterZanesville City [facility]10-11-2023 NoteHNO ID: [id number] Author: Kesha Clifton MD Service: ? Author Type: Physician Type: Progress Notes Filed: 01/23/2023 12:34 PM Note Text: PATIENT NAME: Rachel Ackerman CLINIC NO.: [id number] ATTENDING PHYSICIAN: Kesha Clifton MD DATE OF SERVICE: January 23, 2023 Dear No referring provider defined for this encounter. thank you for referring Mr Rachel Ackerman for an opinion regarding thrombocytopenia. CHIEF COMPLAINT: I have low PLT and need surgery HPI: Rachel Ackerman is a 72 year old year old male with past medical history significant for BPH, obesity, hyperlipidemia, obstructive sleep apnea on BiPAP, glucose intolerance and a former smoker who is undergoing a cystoscopy and TURP with Dr. Huerta on February 07. Preoperative work-up demonstrated platelet count 126. His coags were within normal limits. White count and differential within normal limits and no evidence of anemia. Patient has had multiple surgical procedures in the past without any bleeding history. He is unaware of any previous history of thrombocytopenia, however, review of his labs demonstrated a platelet count in the 140s approximately 3 years ago. He denies any history of heavy alcohol abuse or liver disease. He has had sinus surgery and multiple dental extractions without any bleeding. No family history of platelet and or bleeding disorder. Current Outpatient Medications Medication Sig acetaminophen (TYLENOL) 500 mg tablet Take 500 mg by mouth every 6 hours as needed. albuterol HFA (VENTOLIN HFA) 90 mcg/actuation inhaler Inhale 2 Puffs as instructed. atorvastatin (LIPITOR) 80 mg tablet Take 80 mg by mouth once daily. busPIRone HCl 30 mg tablet Take 30 mg by mouth once daily. ezetimibe (ZETIA) 10 mg tablet Take 10 mg by mouth once daily. ferrous sulfate 325 mg (65 mg iron) tablet Take 325 mg by mouth once daily. finasteride (PROSCAR) 5 mg tablet Take 5 mg by mouth once daily. fluticasone-vilanterol (BREO ELLIPTA) 200-25 mcg/dose inhaler Inhale 1 Inhalation as instructed once daily. sertraline (ZOLOFT) 100 mg tablet Take 100 mg by mouth once daily. tamsulosin (FLOMAX) 0.4 mg Take 0.4 mg by mouth once daily. No current facility-administered medications for this visit. ALLERGIES Allergen Reactions Cardura [Doxazosin] Anaphylaxis PAST MEDICAL HISTORY Diagnosis Date Anxiety Asthma BPH with urinary obstruction Depressive disorder Hyperlipidemia Nocturia JOSE ANGEL (obstructive sleep apnea) Platelets decreased (HCC) Prediabetes Urinary retention PAST SURGICAL HISTORY Procedure Laterality Date ARTHROSCOPY KNEE DIAGNOSTIC W/WO SYNOVIAL BX SPX Right COLONOSCOPY NASAL ENDOS,DIAG,UNI/ BILATERAL PAST SURGICAL HISTORY OF Excision of Basal cell carcinoma PAST SURGICAL HISTORY OF Pharyngeal PAST SURGICAL HISTORY OF Tonsillectomy REMV CATARACT EXTRACAP,INSERT LENS FAMILY HISTORY Problem Relation Age of Onset Heart disease Mother Hypertension Father Alcohol abuse Father Heart disease Father other (Bone Cancer) Sister Social History Tobacco Use Smoking status: Former Types: Cigarettes Passive exposure: Past Smokeless tobacco: Never Substance Use Topics Alcohol use: Not Currently Drug use: Never REVIEW OF SYSTEMS GENERAL: No weight loss, malaise or fevers. No night sweats. HEENT: Negative for headaches, No changes in hearing or vision, no nose bleeds or other nasal problems. RESPIRATORY: Negative for cough, wheezing and shortness of breath CARDIOVASCULAR: Negative for chest pain, leg swelling and palpitations GI: Negative for abdominal discomfort, blood in stools or black stools and change in bowel habits : Negative for dysuria, frequency and incontinence MUSCULOSKELETAL: Negative for joint pain or swelling, back pain, and muscle pain. SKIN: Negative for lesions, rash, and itching. HEMATOLOGY/LYMPHOLOGY Negative for prolonged bleeding, bruising easily, and swollen nodes. NEURO: Negative for numbness or tingling of hands/feet. No weakness. PHYSICAL EXAMINATION: BP 137/76 Pulse 65 Temp 36.4 ?C (97.6 ?F) (Temporal) Resp 18 Ht 177.8 cm (5' 10 ) Wt 114.3 kg (252 lb) SpO2 94% BMI 36.16 kg/m? Wt 114.3 kg (252 lb) BMI 36.16 kg/m2 Last 3 Encounter Wt Readings: Date: Wt: 01/23/2023 114.3 kg (252 lb) General appearance:ECOG PERFORMANCE STATUS: 0- Fully active, able to carry on all pre-disease performance w/o restriction. Patient in NAD. Skin: Skin color, texture, turgor normal. No rashes or lesions. Eyes: Anicteric sclera. Pupils are equally round and reactive to light. Extraocular movements are intact. Breast: No palpable breast masses. No nipple change or discharge. Lymph Nodes: No cervical, supraclavicular, axillary or inguinal adenopathy. Oropharynx: Lips, mucosa, and tongue normal. Back: No pain to percussion. Negative SLR test Lungs clear to auscultation, No wheezing or rhonchi Heart: RRR without mur (more content not included)...[facility] 12-26-2022 [id number]:[id number]09-12-2023 Hospital Discharge instructions Patient Education 12/25/2022 17:00:26 EU - Cystoscopy Discharge Instructions (CUSTOM) Cystoscopy Voiding after the procedure: there may be some pain, burning, urgency, frequency and blood tinged urine following the procedure. These symptoms usually resolve within 2-5 days. Drink the amount of fluid it takes to keep the urine pink to yellow or clear in color. Drinking enough water and fluids will help to ease any discomfort after your procedure. If you are having problems that seem out of the ordinary, please call. If unable to contact your physician and you feel it is an emergency, go to the nearest emergency room or call 911 Diet you may resume your normal diet. Activity you may resume your normal activities Call if you have a fever over 100 degrees. Follow Up Care 11/12/2022 13:58:02 With:Elia HUERTA Address: [facility] [address] [place] [address] [facility] (1) When: Unknown Comments:Office will call to schedule follow up [facility]09-12-2023 NoteCustom Cystoscopy ? Voiding after the procedure: there may be some pain, burning, urgency, frequency and blood tingedurine following the procedure. These symptoms usually resolve within 2-5 days. Drink the amount of fluid it takes to keep the urine pink to yellow or clear in color. Drinking enough water and fluids will help to ease any discomfort after your procedure. ? If you are having problems that seem out of the ordinary, please call. ? If unable to contact your physician and you feel it is an emergency, go to the nearest emergency room or call 911 ? Diet ? you may resume your normal diet. ? Activity ? you may resume your normal activities ? Call if you have a fever over 100 degrees.[facility] 12-25-2022 Evaluation + Plan noteExtracted from: Title:Urology Progress Note Author:Mario HUERTA MD Date:12/25/22 Impression and Plan Impression: #1. This gentleman has BPH with LUTS refractory to medications. He is obstructed urodynamically. He is desirous for a TURP. Plan: #1. He will continue his Flomax and pro scar for now. We are getting him scheduled for TURP under anesthesia. [facility]07-31-2023 Hospital Discharge instructions Patient Education 11/12/2022 13:31:45 Transurethral Resection of the Prostate Transurethral Resection of the Prostate Transurethral resection of the prostate (TURP) is the removal, or resection, of part of the prostate tissue. This procedure is done to treat an enlarged prostate gland (benign prostatic hyperplasia). The goal of TURP is to remove enough prostate tissue to allow for a normal flow of urine. The procedure will allow you to empty your bladder more completely when you urinate so that you can urinate less often. In a transurethral resection, a thin telescope with a light, a camera, and an electric cutting edge(resectoscope) is passed through the urethra and into the prostate. The opening of the urethra is at the end of the penis. Tell a health care provider about: Any allergies you have. All medicines you are taking, including vitamins, herbs, eye drops, creams, and hxkn-xth-nffwdyp medicines. Any problems you or family members have had with anesthetic medicines. Any bleeding problems you have. Any surgeries you have had. Any medical conditions you have. Any prostate infections you have had. What are the risks? Generally, this is a safe procedure. However, problems may occur, including: Infection. Bleeding. Allergic reactions to medicines. Blood in the urine (hematuria). Damage to nearby structures or organs. Other problems may occur, but they are rare. They include: Dry ejaculation, or having no semen come out during orgasm. Erectile dysfunction, or being unable to have or keep an erection. Scarring that leads to narrowing of the urethra. This narrowing may block the flow of urine. Inability to control when you urinate (incontinence). Deep vein thrombosis. This is a blood clot that can develop in your leg. TURP syndrome. This can happen when you lose too much sodium during or after the procedure. Some signs and symptoms of this condition include: ?Weakness. ?Headaches. ?Nausea or vomiting. ?Muscle cramping. What happens before the procedure? When to stop eating and drinking Follow instructions from your health care provider about what you may eat and drink before your procedure. These may include: 8 hours before your procedure ?Stop eating most foods. Do not eat meat, fried foods, or fatty foods. ?Eat only light foods, such as toast or crackers. ?All liquids are okay except energy drinks and alcohol. 6 hours before your procedure ?Stop eating. ?Drink only clear liquids, such as water, clear fruit juice, black coffee, plain tea, and sports drinks. ?Do not drink energy drinks or alcohol. 2 hours before your procedure ?Stop drinking all liquids. ?You may be allowed to take medicines with small sips of water. If you do not follow your health care provider's instructions, your procedure may be delayed or canceled. Medicines Ask your health care provider about: Changing or stopping your regular medicines. This is especially important if you are taking diabetes medicines or blood thinners. Taking medicines such as aspirin and ibuprofen. These medicines can thin your blood. Do not take these medicines unless your health care provider tells you to take them. Taking jvmn-cwa-etpyfrx medicines, vitamins, herbs, and supplements. Surgery safety Ask your health care provider what steps will be taken to help prevent infection. These steps may include: Removing hair at the surgery site. Washing skin with a germ-killing soap. Taking antibiotic medicine. General instructions Do not use any products that contain nicotine or tobacco for at least 4 weeks before the procedure.These products include cigarettes, chewing tobacco, and vaping devices, such as e-cigarettes. If you need help quitting, ask your health care provider. If you will be going home right after the procedure, plan to have a responsible adult: ?Take you home from the hospital or clinic. You will not be allowed to drive. ?Care for you for the time you are told. What happens during the procedure? An IV will be inserted into one of your veins. You will be given one or more of the following: ?A medicine to help you relax (sedative). ?A medicine to make you fall asleep (general anesthetic). ?A medicine that is injected into your spine to numb the area below and slightly above the injection site (spinal anesthetic). Your legs will be placed in foot rests (stirrups) so that your legs are apart and your knees are bent. The resectoscope will be passed through your urethra to your prostate. Parts of your prostate will be resected using the cutting edge of the resectoscope. Fluid will be passed to rinse out the cut tissues (irrigation). The resectoscope will be removed. A small, thin tube (catheter) will be passed through your urethra and into your bladder. The catheter will drain urine into a bag outside of your body. The procedure may vary among health care providers and hospitals. What happens after the procedure? Your blood pressure, heart rate, breathing rate, and blood oxygen level will be monitored until youleave the hospital or clinic. You will be given fluids through the IV. The IV will be removed when you start eating and drinking normally. You may have some pain. Pain medicine will be available to help you. You will have a catheter draining your urine. ?You may have blood in your urine. Your catheter may be kept in until your urine is clear. ?Your urinary drainage will be monitored. If necessary, your bladder may be rinsed out (irrigated) through your catheter. You will be encouraged to walk around as soon as possible. You may have to wear compression stockings. These stockings help to prevent blood clots and reduce swelling in your legs. If you were given a sedative during the procedure, it can affect you for several hours. Do not drive or operate machinery until your health care provider says that it is safe. Summary Transurethral resection of the prostate (TURP) is the removal (resection) of part of the prostate tissue. The goal of this procedure is to remove enough prostate tissue to allow for a normal flow of urine. Follow instructions from your health care provider about taking medicines and about eating and drinking before the procedure. This information is not intended to replace advice given to you by your health care provider. Make sure you discuss any questions you have with your health care provider. Document Revised: 12/26/2021 Document Reviewed: 12/26/2021 [employer] Patient Education 2022 [employer] 11/12/2022 13:23:11 Urodynamic Testing Urodynamic Testing Urodynamic tests are done to determine how well your lower urinary tract is working. The lower urinary tract includes your bladder and the part of your body that drains urine from the bladder (urethra). When your kidneys filter your blood, urine is stored in your bladder until you feel the urge to urinate. Urination requires coordination between the nerves and muscles of your bladder and urethra. When your lower urinary tract is working well, you should be able to: Start urinating when your bladder is full. Empty your bladder completely. Control the flow of your urine. Why do I need urodynamic testing? You may need urodynamic testing to help find the cause of any of these problems: Leaking urine (incontinence). Problems starting or stopping your urine flow. Frequent or painful urination. Frequent urinary tract infections. Being unable to empty your bladder completely. Having strong urges to pass urine (urgency). Having a weak flow of urine. What are the risks? Generally, these tests are safe. However, some of the tests have risks, including: Discomfort. Frequent urge to urinate. Bleeding. Infection. Allergic reactions to medicines or dyes (contrast material). What happens before the test? Ask your health care provider about changing or stopping your regular medicines. This is especiallyimportant if you are taking diabetes medicines or blood thinners. You may be asked to avoid urinating before coming to the test so that you arrive with a full bladder. Tell a health care provider about: ?Any allergies you have. ?All medicines you are taking, including vitamins, herbs, eye drops, creams, and axjm-chz-bpmuexj medicines. ?Whether you are or may be . What happens during the test? You may have various urodynamic tests. The tests may be done separately or may all be done during one visit. You may be given an antibiotic medicine before or after testing to help prevent infection. The types of tests that may be done include: Uroflowmetry This test measures how much urine you pass and how long it takes to pass. You will urinate into a certain type of toilet or device (flowmeter). The device will measure the volume and the time of your urine flow. These measurements will be sent to a computer that creates a graph of your urine flow. Postvoid residual measurement This test measures how much urine is left in your bladder after you urinate. The test may be done with ultrasound. In this method, sound waves and a computer will be used to create an image of your bladder. The test can also be done by inserting a thin, flexible tube (catheter) into your bladder after youurinate. The remaining urine will be removed through the catheter so it can be measured. Remaining urine will be measured in milliliters (mL). If you have more than 100 mL left in your bladder after you urinate, your bladder is not emptying as it should. Cystometric testing This test uses a type of bladder catheter that can measure pressure. You may be given a medicine to numb the area (local anesthetic). The area around the opening of your urethra will be cleaned. A urinary catheter will be passed through your urethra into your bladder and used to empty your bladder completely. A measuring catheter will be placed, and your bladder will be filled with warm, germ-free (sterile)water. Pressure measurements will be taken: ?As your bladder fills. ?When you feel the need to urinate. ?As your bladder is emptied. You may be asked to cough or bear down to check for leakage. In some cases, your bladder may be filled with a material that shows up on X- rays (contrast material) so that X-ray pictures can be taken during the test. Electromyogram This test measures the electrical activity of the nerves and muscles of your bladder and the opening of your urethra. Sticky patches (electrodes) will be placed near your rectum and urethra to measure electrical activity. The measurements will show how well your nerves are communicating with your muscles. What can I expect after the test? You should be able to go home right away and do your usual activities. You may be told to drink a glass of water every 30 minutes for the first 2 hours after testing. Taking a warm bath or using warm, wet cloths (warm compresses) may relieve any discomfort near yoururethra. What do the results mean? Talk with your health care provider about what your results mean. Some common causes for abnormal results from urodynamic tests include: Enlarged prostate in men. Overactive bladder. Urinary tract infection. Nervous system diseases. Spinal cord damage. Questions to ask your health care provider Ask your health care provider, or the department that is doing the test: When will my results be ready? How will I get my results? What are my treatment options? What other tests do I need? What are my next steps? Contact a health care provider if: You have pain. You have blood in your urine. You have chills. You have a fever. Summary Urodynamic tests are done to determine how well your lower urinary tract is working. The lower urinary tract includes your bladder and urethra. You may need urodynamic testing to help find the cause of various problems with urination, such as leaking urine (incontinence) or problems starting or stopping your urine flow. You may have various urodynamic tests. The tests may be done separately or may all be done during one testing visit. Talk with your health care provider about what your results mean. Contact your health care provider if you have pain, chills, a fever, or blood in your urine. This information is not intended to replace advice given to you by your health care provider. Make sure you discuss any questions you have with your health care provider. Document Revised: 12/13/2021 Document Reviewed: 11/04/2020 [employer] Patient Education 2022 [employer] 11/12/2022 13:13:30 Benign Prostatic Hyperplasia Benign Prostatic Hyperplasia Benign prostatic hyperplasia (BPH) is an enlarged prostate gland that is caused by the normal agingprocess. The prostate may get bigger as a man gets older. The condition is not caused by cancer. The prostate is a walnut-sized gland that is involved in the production of semen. It is located in front of the rectum and below the bladder. The bladder stores urine. The urethra carries stored urine ou t of the body. An enlarged prostate can press on the urethra. This can make it harder to pass urine. The buildup of urine in the bladder can cause infection. Back pressure and infection may progress to bladder damage and kidney (renal) failure. What are the causes? This condition is part of the normal aging process. However, not all men develop problems from thiscondition. If the prostate enlarges away from the urethra, urine flow will not be blocked. If it enlarges toward the urethra and compresses it, there will be problems passing urine. What increases the risk? This condition is more likely to develop in men older than 50 years. What are the signs or symptoms? Symptoms of this condition include: Getting up often during the night to urinate. Needing to urinate frequently during the day. Difficulty starting urine flow. Decrease in size and strength of your urine stream. Leaking (dribbling) after urinating. Inability to pass urine. This needs immediate treatment. Inability to completely empty your bladder. Pain when you pass urine. This is more common if there is also an infection. Urinary tract infection (UTI). How is this diagnosed? This condition is diagnosed based on your medical history, a physical exam, and your symptoms. Tests will also be done, such as: A post-void bladder scan. This measures any amount of urine that may remain in your bladder after you finish urinating. A digital rectal exam. In a rectal exam, your health care provider checks your prostate by putting a lubricated, gloved finger into your rectum to feel the back of your prostate gland. This exam detects the size of your gland and any abnormal lumps or growths. An exam of your urine (urinalysis). A prostate specific antigen (PSA) screening. This is a blood test used to screen for prostate cancer. An ultrasound. This test uses sound waves to electronically produce a picture of your prostate gland. Your health care provider may refer you to a specialist in kidney and prostate diseases (urologist). How is this treated? Once symptoms begin, your health care provider will monitor your condition (active surveillance or watchful waiting). Treatment for this condition will depend on the severity of your condition. Treatment may include: Observation and yearly exams. This may be the only treatment needed if your condition and symptoms are mild. Medicines to relieve your symptoms, including: ?Medicines to shrink the prostate. ?Medicines to relax the muscle of the prostate. Surgery in severe cases. Surgery may include: ?Prostatectomy. In this procedure, the prostate tissue is removed completely through an open incision or with a laparoscope or robotics. ?Transurethral resection of the prostate (TURP). In this procedure, a tool is inserted through the opening at the tip of the penis (urethra). It is used to cut away tissue of the inner core of the prostate. The pieces are removed through the same opening of the penis. This removes the blockage. ?Transurethral incision (TUIP). In this procedure, small cuts are made in the prostate. This lessens the prostate's pressure on the urethra. ?Transurethral microwave thermotherapy (TUMT). This procedure uses microwaves to create heat. The heat destroys and removes a small amount of prostate tissue. ?Transurethral needle ablation (TUNA). This procedure uses radio frequencies to destroy and remove a small amount of prostate tissue. ?Interstitial laser coagulation (ILC). This procedure uses a laser to destroy and remove a small amount of prostate tissue. ?Transurethral electrovaporization (TUVP). This procedure uses electrodes to destroy and remove a small amount of prostate tissue. ?Prostatic urethral lift. This procedure inserts an implant to push the lobes of the prostate away from the urethra. Follow these instructions at home: Take [id number] and prescription medicines only as told by your health care provider. Monitor your symptoms for any changes. Contact your health care provider with any changes. Avoid drinking large amounts of liquid before going to bed or out in public. Avoid or reduce how much caffeine or alcohol you drink. Give yourself time when you urinate. Keep all follow-up visits. This is important. Contact a health care provider if: You have unexplained back pain. Your symptoms do not get better with treatment. You develop side effects from the medicine you are taking. Your urine becomes very dark or has a bad smell. Your lower abdomen becomes distended and you have trouble passing urine. Get help right away if: You have a fever or chills. You suddenly cannot urinate. You feel light-headed or very dizzy, or you faint. There are large amounts of blood or clots in your urine. Your urinary problems become hard to manage. You develop moderate to severe low back or flank pain. The flank is the side of your body between the ribs and the hip. These symptoms may be an emergency. Get help right away. Call 911. Do not wait to see if the symptoms will go away. Do not drive yourself to the hospital. Summary Benign prostatic hyperplasia (BPH) is an enlarged prostate that is caused by the normal aging process. It is not caused by cancer. An enlarged prostate can press on the urethra. This can make it hard to pass urine. This condition is more likely to develop in men older than 50 years. Get help right away if you suddenly cannot urinate. This information is not intended to replace advice given to you by your health care provider. Make sure you discuss any questions you have with your health care provider. Document Revised: 10/18/2021 Document Reviewed: 10/18/2021 [employer] Patient Education 2022 [employer]. Follow Up Care 09/05/2021 11:51:48 With:DEANNA WADDELL, Elia Cardona, URL Address: [facility] [address], [place] [phone]- [phone] When: Unknown Comments:sched urodynamics and cysto [facility] [place] 06-15-2023 Evaluation note* Encounter Date Diagnosis Assessment Notes Treatment Notes Treatment Clinical Notes Sep, Medicare annual wellness visit, subsequent (ICD-10 - Z00.00) Personalized health advice was given to the beneficiary including a written plan for screenings discussed and provided. Advanced care planning reviewed and/or information given as requested. The above visit was performed by Mary De Leon, under direct supervision of Patrica Cruz,DNP,SENIOR [employer] ADMINISTRATOR,[employer]. Document reviewed and amended by provider signed below. Sep, Prediabetes (ICD-10 - R73.03) He does have prediabetes. Hgba1c in the office shows good control of prediabetes. He is on no medication for this. Other routine lab work ordered previously, he will complete. Will continue current treatment plan pending lab results. Patient is advised to work on healthy diet choices and appropriate servings, weight control, regular exercise as directed, and reduce fat intake. Sep, Mixed hyperlipidemia (ICD-10 - E78.2) Currently taking Zetia 10 mg daily and Atorvastatin 80 mg daily. Routine lab work ordered previously, he will complete. Will continue current treatment plan pending lab results. , Take medication as prescribed, keep follow up appointments, get any testing that's been ordered done in a timely fashion. Do not smoke. Call if any questions or problems. For Cholesterol: Patient is advised to work on healthy diet choices and appropriate servings, weight control, regular exercise as directed, and reduce fat intake. Sep, Generalized anxiety disorder (ICD-10 - F41.1) No suicidal or homicidal ideations. Well controlled at this time with Buspar 30 mg BID and Sertraline 100 mg BID. Will continue current treatment plan at this time. Sep, Moderate episode of recurrent major depressive disorder (ICD-10 - F33.1) No suicidal or homicidal ideations. Well controlled at this time with Buspar 30 mg BID and Sertraline 100 mg BID . Will continue current treatment plan at this time. Sep, Asthma (ICD-10 - J45.909) Well controlled at this time with Breo 200/25 mcg inhalation 1 puff daily. Will continue current treatment plan at this time. Consult notes reviewed from pulmonary. Continue to follow with pulmonary. Sep, Obstructive sleep apnea (adult) (pediatric) (ICD-10 - G47.33) Patient is very compliant with JOSE ANGEL BIPAP machine. Will continue current treatment plan at this time. Consult notes reviewed from sleep lab. Continue to follow with Dr. Sheldon at sleep lab. Sep, Benign prostatic hyperplasia with lower urinary tract symptoms (ICD-10 - N40.1) Currently well controlled with Finasteride 5 mg daily and Flomax 0.4 mg daily. Will continue this at this time. Consult notes reviewed as received. He is to continue to follow with urology. He will be seeing Dr. Deanna martell. 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 He denies any symptoms related to this but we will go ahead and repeat the ultrasound to rule out abnormality. Further treatment pending results of testing. Sep, Obesity (BMI 35.0-39.9 without comorbidity) (ICD-10 - E66.9) Patient is advised to work on healthy diet choices and appropriate servings, weight control, regular exercise as directed, reduced fat intake, and salt avoidance. Patient voiced understanding of this and agrees to this plan. [employer] Other 11-14-2022 Evaluation note* Encounter Date Diagnosis Assessment Notes Treatment Notes Treatment Clinical Notes Feb, Prediabetes (ICD-10 - R73.03) He does have prediabetes. Hgba1c in the office shows good control of prediabetes. He is on no medication for this. Other routine lab work ordered. Will continue current treatment plan pending lab results. Patient is advised to work on healthy diet choices and appropriate servings, weight control, regular exercise as directed, and reduce fat intake. Feb, Mixed hyperlipidemia (ICD-10 - E78.2) Currently taking Zetia 10 mg daily and Atorvastatin 80 mg daily. Routine lab work ordered. Will continue current treatment plan pending lab results. , Take medication as prescribed, keep follow up appointments, get any testing that's been ordered done in a timely fashion. Do not smoke. Call if any questions or problems. For Cholesterol: Patient is advised to work on healthy diet choices and appropriate servings, weight control, regular exercise as directed, and reduce fat intake. 14 Feb, 2022 Generalized anxiety disorder (ICD-10 - F41.1) No suicidal or homicidal ideations. Well controlled at this time with Buspar 30 mg BID and Sertraline 100 mg BID. Will continue current treatment plan at this time. 14 Feb, 2022 Moderate episode of recurrent major depressive disorder (ICD-10 - F33.1) No suicidal or homicidal ideations. Well controlled at this time with Buspar 30 mg BID and Sertraline 100 mg BID . Will continue current treatment plan at this time. 14 Feb, 2022 Asthma (ICD-10 - J45.909) Well controlled at this time with Breo 200/25 mcg inhalation 1 puff daily. Will continue current treatment plan at this time. Consult notes reviewed from pulmonary. Continue to follow with pulmonary. Feb, Obstructive sleep apnea (adult) (pediatric) (ICD-10 - G47.33) Patient is very compliant with JOSE ANGEL BIPAP machine. Will continue current treatment plan at this time. Consult notes reviewed from sleep lab. Continue to follow with Dr. Sheldon at sleep lab. Feb, Benign prostatic hyperplasia with lower urinary tract symptoms (ICD-10 - N40.1) Currently well controlled with Finasteride 5 mg daily and Flomax 0.4 mg daily. Will continue this at this time. Consult notes reviewed. He is to continue to follow with urology. However, new referral sent today as he would like to see Dr. Rogers or Dr. Huerta instead of Dr. Rivera. 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 He denies any symptoms related to this but we will go ahead and repeat the ultrasound to rule out abnormality. Further treatment pending results of testing. Feb, Obesity (BMI 35.0-39.9 without comorbidity) (ICD-10 - E66.9) Patient is advised to work on healthy diet choices and appropriate servings, weight control, regular exercise as directed, reduced fat intake, and salt avoidance. Patient voiced understanding of this and agrees to this plan. Feb, Screening for prostate cancer (ICD-10 - Z12.5) Risks and benefits of PSA screening discussed with patient today. Patient wishes to get PSA screening done. PSA screening lab ordered today. Feb, Encounter for immunization (ICD-10 - Z23) Routine flu vaccine given today. Feb, Other He will foll ow up with ENT due to some fluid behind right ear. [employer] Other 05-24-2022 Hospital Discharge instructions Patient Education 09/05/2021 11:25:54 Benign Prostatic Hyperplasia Benign Prostatic Hyperplasia Benign prostatic hyperplasia (BPH) is an enlarged prostate gland that is caused by the normal agingprocess and not by cancer. The prostate is a walnut-sized gland that is involved in the production of semen. It is located in front of the rectum and below the bladder. The bladder stores urine and the urethra is the tube that carries the urine out of the body. The prostate may get bigger as a man gets older. An enlarged prostate can press on the urethra. This can make it harder to pass urine. The build-up of urine in the bladder can cause infection. Back pressure and infection may progress to bladder damage and kidney (renal) failure. What are the causes? This condition is part of a normal aging process. However, not all men develop problems from this condition. If the prostate enlarges away from the urethra, urine flow will not be blocked. If it enlarges toward the urethra and compresses it, there will be problems passing urine. What increases the risk? This condition is more likely to develop in men over the age of 50 years. What are the signs or symptoms? Symptoms of this condition include: Getting up often during the night to urinate. Needing to urinate frequently during the day. Difficulty starting urine flow. Decrease in size and strength of your urine stream. Leaking (dribbling) after urinating. Inability to pass urine. This needs immediate treatment. Inability to completely empty your bladder. Pain when you pass urine. This is more common if there is also an infection. Urinary tract infection (UTI). How is this diagnosed? This condition is diagnosed based on your medical history, a physical exam, and your symptoms. Tests will also be done, such as: A post-void bladder scan. This measures any amount of urine that may remain in your bladder after you finish urinating. A digital rectal exam. In a rectal exam, your health care provider checks your prostate by putting a lubricated, gloved finger into your rectum to feel the back of your prostate gland. This exam detects the size of your gland and any abnormal lumps or growths. An exam of your urine (urinalysis). A prostate specific antigen (PSA) screening. This is a blood test used to screen for prostate cancer. An ultrasound. This test uses sound waves to electronically produce a picture of your prostate gland. Your health care provider may refer you to a specialist in kidney and prostate diseases (urologist). How is this treated? Once symptoms begin, your health care provider will monitor your condition (active surveillance or watchful waiting). Treatment for this condition will depend on the severity of your condition. Treatment may include: Observation and yearly exams. This may be the only treatment needed if your condition and symptoms are mild. Medicines to relieve your symptoms, including: ?Medicines to shrink the prostate. ?Medicines to relax the muscle of the prostate. Surgery in severe cases. Surgery may include: ?Prostatectomy. In this procedure, the prostate tissue is removed completely through an open incision or with a laparoscope or robotics. ?Transurethral resection of the prostate (TURP). In this procedure, a tool is inserted through the opening at the tip of the penis (urethra). It is used to cut away tissue of the inner core of the prostate. The pieces are removed through the same opening of the penis. This removes the blockage. ?Transurethral incision (TUIP). In this procedure, small cuts are made in the prostate. This lessens the prostate's pressure on the urethra. ?Transurethral microwave thermotherapy (TUMT). This procedure uses microwaves to create heat. The heat destroys and removes a small amount of prostate tissue. ?Transurethral needle ablation (TUNA). This procedure uses radio frequencies to destroy and remove a small amount of prostate tissue. ?Interstitial laser coagulation (ILC). This procedure uses a laser to destroy and remove a small amount of prostate tissue. ?Transurethral electrovaporization (TUVP). This procedure uses electrodes to destroy and remove a small amount of prostate tissue. ?Prostatic urethral lift. This procedure inserts an implant to push the lobes of the prostate away from the urethra. Follow these instructions at home: Take ikgz-jnc-[id number] and prescription medicines only as told by your health care provider. Monitor your symptoms for any changes. Contact your health care provider with any changes. Avoid drinking large amounts of liquid before going to bed or out in public. Avoid or reduce how much caffeine or alcohol you drink. Give yourself time when you urinate. Keep all follow-up visits as told by your health care provider. This is important. Contact a health care provider if: You have unexplained back pain. Your symptoms do not get better with treatment. You develop side effects from the medicine you are taking. Your urine becomes very dark or has a bad smell. Your lower abdomen becomes distended and you have trouble passing your urine. Get help right away if: You have a fever or chills. You suddenly cannot urinate. You feel lightheaded, or very dizzy, or you faint. There are large amounts of blood or clots in the urine. Your urinary problems become hard to manage. You develop moderate to severe low back or flank pain. The flank is the side of your body between the ribs and the hip. These symptoms may represent a serious problem that is an emergency. Do not wait to see if the symptoms will go away. Get medical help right away. Call your local emergency services (911 in the [place] Do not drive yourself to the hospital. Summary Benign prostatic hyperplasia (BPH) is an enlarged prostate that is caused by the normal aging process and not by cancer. An enlarged prostate can press on the urethra. This can make it hard to pass urine. This condition is part of a normal aging process and is more likely to develop in men over the age of 50 years. Get help right away if you suddenly cannot urinate. This information is not intended to replace advice given to you by your health care provider. Make sure you discuss any questions you have with your health care provider. Document Released: 04/01/2006 Document Revised: 02/24/2019 Document Reviewed: 05/06/2017 [employer] Patient Education 2019 [employer]. Follow Up Care 09/01/2020 11:16:04 With:Miguel Martinez MD, Will Carmichael, URO Address: [facility] [address] [place] [address]- When: Unknown [facility] 05-12-2022 Evaluation note* Encounter Date Diagnosis Assessment Notes Treatment Notes Treatment Clinical Notes August, Medicare annual wellness visit, initial (ICD-10 - Z00.00) Personalized health advice was given to the beneficiary including a written plan for screenings discussed and provided. Advanced care planning reviewed and/or information given as requested. The above visit was performed by Radha COLLINS, under direct supervision of Patrica Cruz, DNP,SENIOR [employer] ADMINISTRATOR, [employer]ER. Document reviewed and amended by provider signed below. August, Prediabetes (ICD-10 - R73.03) He does have prediabetes. Hgba1c in the office shows good control of prediabetes. He is on no medication for this. Other routine lab work ordered. Will continue current treatment plan pending lab results. Patient is advised to work on healthy diet choices and appropriate servings, weight control, regular exercise as directed, and reduce fat intake. August, Mixed hyperlipidemia (ICD-10 - E78.2) Currently taking Zetia 10 mg daily and Atorvastatin 80 mg daily. Routine lab work ordered. Will continue current treatment plan pending lab results. , Take medication as prescribed, keep follow up appointments, get any testing that's been ordered done in a timely fashion. Do not smoke. Call if any questions or problems. For Cholesterol: Patient is advised to work on healthy diet choices and appropriate servings, weight control, regular exercise as directed, and reduce fat intake. August, Generalized anxiety disorder (ICD-10 - F41.1) No suicidal or homicidal ideations. Well controlled at this time with Buspar 30 mg BID and Sertraline 100 mg BID. Will continue current treatment plan at this time. August, Moderate episode of recurrent major depressive disorder (ICD-10 - F33.1) No suicidal or homicidal ideations. Well controlled at this time with Buspar 30 mg BID and Sertraline 100 mg BID . Will continue current treatment plan at this time. August, Asthma (ICD-10 - J45.909) Well controlled at this time with Breo 200/25 mcg inhalation 1 puff daily. Will continue current treatment plan at this time. Consult notes reviewed from pulmonary. Continue to follow with pulmonary. August, Obstructive sleep apnea (adult) (pediatric) (ICD-10 - G47.33) Patient is very compliant with JOSE ANGEL BIPAP machine. Will continue current treatment plan at this time. Consult notes reviewed from sleep lab. Continue to follow with Dr. Sheldon at sleep lab. August, Benign prostatic hyperplasia with lower urinary tract symptoms (ICD-10 - N40.1) Currently well controlled with Finasteride 5 mg daily and Flomax 0.4 mg daily. Will continue this at this time. Consult notes reviewed. He is to continue to follow with urology. August, BMI 36.0-36.9,adult (ICD-10 - Z68.36) Patient is advised to work on healthy diet choices and appropriate servings, weight control, regular exercise as directed, reduced fat intake, and salt avoidance. Patient voiced understanding of this and agrees to this plan. 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 He denies any symptoms related to this but we will go ahead and repeat the ultrasound to rule out abnormality. Further treatment pending results of testing. August, Screening for prostate cancer (ICD-10 - Z12.5) Risks and benefits of PSA screening discussed with patient today. Patient wishes to get PSA screening done. PSA screening lab ordered today. [employer] Other 11-10-2021 Evaluation note* Encounter Date Diagnosis Assessment Notes Treatment Notes Treatment Clinical Notes Feb, Prediabetes (ICD-10 - R73.03) He does have prediabetes. Hgba1c in the office shows good control of prediabetes. He is on no medication for this. UTD with lab work. Will continue current treatment plan. Patient is advised to work on healthy diet choices and appropriate servings, weight control, regular exercise as directed, and reduce fat intake. Feb, Generalized anxiety disorder (ICD-10 - F41.1) No suicidal or homicidal ideations. Well controlled at this time with Buspar 30 mg BID and Sertraline 100 mg BID. Will continue current treatment plan at this time. Feb, Moderate episode of recurrent major depressive disorder (ICD-10 - F33.1) No suicidal or homicidal ideations. Well controlled at this time with Buspar 30 mg BID and Sertraline 100 mg BID. Will continue current treatment plan at this time. 10 Nov, 2021 Asthma (ICD-10 - J45.909) Well controlled at this time with Breo 200/25 mcg inhalation 1 puff daily. Will continue current treatment plan at this time. Consult notes reviewed from pulmonary. Continue to follow with pulmonary. Feb, Obstructive sleep ap matteo (adult) (pediatric) (ICD-10 - G47.33) Patient is very compliant with JOSE ANGEL BIPAP machine. Will continue current treatment plan at this time. Consult notes reviewed from sleep lab. Continue to follow with Dr. Sheldon at sleep lab. Feb, Benign prostatic hyperplasia with lower urinary tract symptoms (ICD-10 - N40.1) Currently well controlled with Finasteride 5 mg daily and Flomax 0.4 mg daily. Will continue this at this time. Consult notes reviewed. He is to continue to follow with urology. Feb, BMI 36.0-36.9,adult (ICD-10 - Z68.36) Patient is advised to work on healthy diet choices and appropriate servings, weight control, regular exercise as directed, reduced fat intake, and salt avoidance. Patient voiced understanding of this and agrees to this plan. Feb, Temporary low platel et count (ICD-10 - D69.6) Did have a mildy low platelet count with his last lab draw. Will recheck this. Feb, Abnormality of abdom inal aorta (ICD-10 - Q25.40) He had an abnormality of his aorta in 2017 that was never repeated. He denies any symptoms related to this but we will go ahead and repeat the ultrasound to rule out abnormality. Further treatment pending results of testing. August, Pure hypercholestero lemia (ICD-10 - E78.00) (Migrated) Currently taking Zetia 10 mg daily and Atorvastatin 80 mg daily. UTD with lab work. Will continue current treatment plan. , Take medication as prescribed, keep follow up appointments, get any testing that's been ordered done in a timely fashion. Do not smoke. Call if any questions or problems. For Cholesterol: Patient is advised to work on healthy diet choices and appropriate servings, weight control, regular exercise as directed, and reduce fat intake. [employer] Other Evaluation + Plan note Future Appointments Appointment Date:09/11/2022 09:15:00 AM Scheduled Provider:Will Rivera Jr., MD Location:[facility] Appointment Type:URO Office Visit Diagnostic Tests Pending * PSA Total 09/05/21 [facility] evaluation + Plan note Future Appointments Appointment Date:12/11/2022 08:15:00 AM Scheduled Provider: Location:[facility] Appointment Type:Urology CALL PAT FT Appointment Date:12/25/2022 03:00:00 PM Scheduled Provider: Location:[facility] Appointment Type:Urology FT Appointment Date:12/25/2022 03:45:00 PM Scheduled Provider: Location:[facility] Appointment Type:Urology FT [facility] evaluation noteNo InformationNo[employer] Other Evaluation noteNo assessment information [facility] Work Phone: Evaluuoinz note* Diagnosis Thrombocytopenia (HCC)- Primary Thrombocytopenia, unspecified Platelets decreased (HCC) Thrombocytopenia, unspecified documented in this encounter [facility] general Narrative - Reported* Type Description Date Medical History hyperlipidemia Medical History obstructive sleep apnea Medical History alcohol abuse, resolved Medical History BPH Medical History KNEE PAIN Medical History Prediabetes Medical History Right Knee Replacement Surgical History sleep apnea surgery 1999 Surgical History RIGHT KNEE ARTHOSCOPY Surgical History CATARACTS REMOVED Surgical History COLONOSCOPY DR RAIN 2015 Surgical History BASAL CELL CARCINOMA LEFT EAR Surgical History SINUS SURGERY 02/2017 Surgical History tonsillectomy Hospitalization History see [employer] Other [facility] general Narrative - Reported* Type Description Date Medical History hyperlipidemia Medical History obstructive sleep apnea Medical History alcohol abuse, resolved Medical History BPH Medical History KNEE PAIN Medical History Prediabetes Medical History Right Knee Replacement Surgical History sleep apnea surgery 2000 Surgical History CATARACTS REMOVED Surgical History COLONOSCOPY DR RAIN 2015 Surgical History BASAL CELL CARCINOMA LEFT EAR Surgical History RIGHT KNEE ARTHOSCOPY Surgical History SINUS SURGERY 02/2017 Surgical History tonsillectomy Surgical History R total knee replacement. 2020 Hospitalization History see [employer] Other History general Narrative - Reported* Type Description Date Medical History hyperlipidemia Medical History obstructive sleep apnea Medical History alcohol abuse, resolved Medical History BPH Medical History KNEE PAIN Medical History Prediabetes Medical History Right Knee Replacement Medical History Type II diabetes Surgical History sleep apnea surgery 1999 Surgical History CATARACTS REMOVED Surgical History COLONOSCOPY DR RAIN 2015 Surgical History BASAL CELL CARCINOMA LEFT EAR Surgical History RIGHT KNEE ARTHOSCOPY Surgical History SINUS SURGERY 02/2017 Surgical History tonsillectomy Surgical History R total knee replacement. 2019 Hospitalization History see [employer] Other Hospital course Narrative No data available for this section [facility] [email or web address] progress note No data available for this section [facility] [email or web address] Summary Purpose Family History No Family History Records FoundNo Family History Records FoundNo Family History Records FoundNo Family History Records FoundNo Family History Records Found Advance Directives Advance Directive Response Recorded Date/ Time Advance Directives No May 19, 2018 2:53pm Hospital Course Note [facility] Clinical Discharge Summary PERSON INFORMATION Name RACHEL ACKERMAN Age 68 Years 1950 Sex MALE Language Divehi PCP Patrica Cruz DNP Marital Status Med Service Med/Surg Acct# Arrival 06/01/2019 06:00:00 Visit Reason SURGERY - RIGHT TOTAL KNEE Acuity LOS Address: [address] [place] [address] Comment: PROVIDER INFORMATION VITALS INFORMATION Vital Sign Triage Latest Temp Oral Temp Temporal Temp Intravascular Temp Axillary Temp Rectal 02 Sat 96 % 97 % Respiratory Rate Peripheral Pulse Rate Apical Heart Rate Blood Pressure / 81 mmHg / 70 mmHg Comment: MEDICAL INFORMATION Allergy Info: Cardura Prescriptions Given: acetaminophen (acetaminophen 500 mg oral tablet) 1 tab(s) Oral Every 6 hours as needed as needed for pain. acetaminophen-oxycodone (Percocet 5/325 oral tablet) 1 tab(s) Oral Every 6 hours as needed for pain. dispensed 24.. albuterol (Ventolin HFA 90 mcg/inh inhalation aerosol) 2 puff(s) (more content not included)... Note Patient: RACHEL ACKERMAN Age: 68 years Sex: MALE : 1950 Associated Diagnoses: None Author: Jonathon Ely MD Postoperative Information Post Operative Note Health Status Allergies: Allergic Reactions (All) Severity Not Documented Cardura- Anaphylaxis. Problem list (past medical history): All Problems Alcoholism / SNOMED CT 14474039 / Confirmed Anxiety / SNOMED CT 92384873 / Confirmed Asthma / SNOMED CT 358681899 / Confirmed Depression / SNOMED CT 26178771 / Confirmed Former smoker / SNOMED CT 58094992 / Confirmed Hyperlipidemia / SNOMED CT 05089421 / Confirmed Skin cancer / SNOMED CT 6603285277 / Confirmed Sleep apnea / SNOMED CT 96720039 / Confirmed Physical Examination VS/Measurements Vital Signs (last 24 hrs) Last Charted Heart Rate Peripheral 87 bpm (JUN 01:48) Resp Rate 20 br/min (JUN 01:48) SBP H 147mmHg (JUN 01:48) DBP 80 mmHg (JUN 01:48) SpO2 97 % (JUN 01:48) Weight 109.50 kg (JUN 01:25) Height 175.26 cm (F (more content not included)... Procedure Findings Note Patient: RACHEL ACKERMAN Age: 68 years Sex: MALE : 1950 Associated Diagnoses: None Author: Jonathon Ely MD Postoperative Information Post Operative Note Health Status Allergies: Allergic Reactions (All) Severity Not Documented Cardura- Anaphylaxis. Problem list (past medical history): All Problems Alcoholism / SNOMED CT 25111968 / Confirmed Anxiety / SNOMED CT 20798218 / Confirmed Asthma / SNOMED CT 843863494 / Confirmed Depression / SNOMED CT 67512232 / Confirmed Former smoker / SNOMED CT 41627264 / Confirmed Hyperlipidemia / SNOMED CT 59755283 / Confirmed Skin cancer / SNOMED CT 4660960539 / Confirmed Sleep apnea / SNOMED CT 75078406 / Confirmed Physical Examination VS/Measurements Vital Signs (last 24 hrs) Last Charted Heart Rate Peripheral 87 bpm (JUN 01:48) Resp Rate 20 br/min (JUN 01:48) SBP H 147mmHg (JUN 01:48) DBP 80 mmHg (JUN 01:48) SpO2 97 % (JUN 01:48) Weight 109.50 kg (JUN 01 06:25) Height 175.26 cm (F (more content not included)... Reason for Referral Reason * FU 03/05 Refer t o urology, would like to see someone other than Dr. Rivera (he is a current patient of Dr. Rivera), would like to see Dr. Huerta or Dr. Rogers Diagnosis 1 Benign prostatic hyp erplasia with lower urinary tract symptoms (N40.1) Referral Organization [facility] Referring Provider First Name Patrica Referring Provider Last Name Anthony Referring Provider Specialty Nurse Pract itioner Referred Organization [facility] Referred Provider Eduardo Rogers Referred Address [address],[place], [place],[address] Referred Provider Specialty Urology Referral Priority Routine General Notes Gabby Daisy L 11:04:12 AM >referral received and faxed Chief Complaint and Reason for Visit Chief Complaint Sleep apnea annual f ollow up Additional Source Comments (unrecognized sect ion and content) No Status Records FoundNo Status Records FoundNo Status Records FoundNo Status Records FoundNo Status Records Found INFORMATION SOURCE (unrecogn ized section and content) DATE CREATED AUTHOR 06/16/2019 [facility] DATE CREATED AUTHOR AUTHOR'S ORGANIZ ATION 09/24/2020 [facility] DATE CREATED AUTHOR AUTHOR'S ORGANIZ ATION 11/08/2022 [facility] DATE CREATED AUTHOR AUTHOR'S ORGANIZ ATION 02/21/2023 [facility] DATE CREATED AUTHOR AUTHOR'S ORGANIZ ATION 03/21/2023 [facility] REASON FOR VISIT (unrecogniz ed section and content) 6 month Follow up, hgba1c Reason Comments Patient Update Reason Comments Thrombocytopenia Follow up Care Teams (unrecognized sec tion and content) Team Status: Active Member Role Status Dates Patrica Cruz DNP Primary Care Provider Active Team Status: Inactive Member Role Status Dates Patrica Cruz DNP Primary Care Provider Active Genaro Sheldon MD Attending Provider Active Goals (unrecognized section and content) Goals may be documented in a n alternate section Source Comments (unrecognize d section and content) In the event this informatio n is protected by the Federal Confidentiality of Alcohol and Drug Abuse Patient Records regulations: The Federal rules restrict any use of the information to criminally investigate or prosecute any alcohol or drug abuse patient.[facility] the event this information is protected by the Federal Confidentiality of Alcohol and Drug Abuse Patient Records regulations: The Federal rules restrict any use of the information to criminally investigate or prosecute any alcohol or drug abuse patient.[facility] the event this information is protected by the Federal Confidentiality of Alcohol and Drug Abuse Patient Records regulations: The Federal rules restrict any use of the information to criminally investigate or prosecute any alcohol or drug abuse patient.[facility] FOR RECORDS PERTAINING TO PATIENTS WHO ARE OR HAVE BEEN ENROLLED IN A CHEMICAL DEPENDENCY/SUBSTANCEABUSE PROGRAM, SOME INFORMATION MAY BE OMITTED. This clinical summary was aggregated from multiple sources. Caution should be exercised in using it in the provision of clinical care. This summary normalizes information from multiple sources, and as a consequence, information in this document may materially change the coding, format and clinical context of patient data. In addition, data may be omitted in some cases. CLINICAL DECISIONS SHOULD BE BASED ON THE PRIMARY CLINICAL RECORDS. [facility] [employer] [facility]. provides no warranty or guarantee of the accuracy or completeness of information in this document.
[2023-04-03 12:42] LABS: Basophils Absolute Auto 0.1 10^3/uL (0.0-0.1); Basophils Percent Auto 0.9 % (0.2-2.0); Eosinophils Absolute Auto 0.1 10^3/uL (0.0-0.7); Hematocrit 41.7 % (42.0-54.0); Hemoglobin 14.2 g/dL (14.0-18.0); Immature Granulocytes Abs Auto 0.05 10^3/uL (0.00-0.03); Immature Granulocytes Pct Auto 0.7 % (0.0-0.5); Lymphocytes Absolute Auto 2.5 10^3/uL (1.2-3.8); Lymphocytes Percent Auto 35.7 % (20.5-60.0); Mean Corpuscular HGB Conc 34.1 g/dL (29.9-35.2); Mean Corpuscular Hemoglobin 29.1 pg (25.9-34.0); Mean Corpuscular Volume 85.5 fL (80.0-94.0); Mean Platelet Volume 9.1 fL (9.5-13.5); Monocytes Absolute Auto 0.5 10^3/uL (0.3-0.8); Monocytes Percent Auto 6.5 % (1.7-12.0); Neutrophils Absolute Auto 3.7 10^3/uL (1.4-6.5); Neutrophils Percent Auto 54.2 % (43.0-75.0); Platelet Count 130 10^3/uL (150-450); Red Blood Count 4.88 10^6/uL (4.70-6.10); Red Cell Distribution Width 13.8 % (11.0-15.0); White Blood Count 6.9 10^3/uL (4.0-11.0)
== END 2023-04-03 12:21 | disposition home or self-care (01) ==
LOC: LAB 12:21
PROVIDERS: PCP Nurse Practitioner Family; Visit Provider Nurse Practitioner Family
DX: R79.89 Other specified abnormal findings of blood chemistry (principal)
CPT/HCPCS: 36415; 85025

== ENCOUNTER 2023-04-10 11:26 | Outpatient (OUT) | payer MEDICARE, OTHER, SELFPAY | END 2023-04-10 11:27 | disposition home or self-care (01) | LOC: PST 11:26 | PROVIDERS: PCP Nurse Practitioner Family; Visit Provider Urology | DX: Z01.818 Encounter for other preprocedural examination (principal); N40.1 Benign prostatic hyperplasia with lower urinary tract symptoms; N13.8 Other obstructive and reflux uropathy ==

== ENCOUNTER 2023-04-18 08:56 | Day surgery (SDC) | payer MEDICARE, OTHER, SELFPAY ==
[2023-01-15 09:55] VITALS: BP 132/78; PULSE 67; RESP 22; TEMP 36.3; O2SAT 96; BMI 36.8
[2023-03-14 13:22] VITALS: BP 119/65; PULSE 66; RESP 20; TEMP 36.5; O2SAT 94; BMI 35.0
[2023-04-18] VITALS (14 sets, daily range): BP systolic 111–157; BP diastolic 60–89; PULSE 65–89; RESP 15–26; TEMP 35.9–36.8; O2SAT 90–96; BMI 34.7
--- OUTSIDE RECORDS SUMMARY | 2023-04-18 09:08 | XMS_ITS | CCD ---
Author Name Unknown Address [address] [place] [address] Organization [facility] Care Team Providers Care Stained Glass Joiner Name Role Phone REQUEST, DR NONE LISTED Attending Unavaila ble REQUEST, NONE LISTED Consulting Unavaila ble REQUEST, NONE LISTED Admitting Unavaila ble PATRICA CRUZ Primary Care Unavailable PATRICA CRUZ Attending Unavailable ANTHONY, PATRICA Primary Care Unavailable PATRICA CRUZ Admitting Unavailable MIGUEL RODRIGUES, DR WILL Carmichael Consulting Unavailabl e MIGUEL RODRIGUES, DR WILL Carmichael Admitting Unavailabl e ANTHONY, PATRICA Primary Care Unavailable MIGUEL RODRIGUES, DR WILL Carmichael Attending Unavailabl e PATRICA CRUZ Consulting Unavailable ANTHONY, PATRICA Primary Care Unavailable ANTHONY, PATRICA Admitting Unavailable PATRICA CRUZ Attending Unavailable REQUEST, NONE LISTED Admitting Unavaila ble REQUEST, NONE LISTED Attending Unavaila ble REQUEST, NONE LISTED Consulting Unavaila ble PATRICA CRUZ Primary Care Unavailable PATRICA CRUZ Primary Care Physician Patrica Cruz Unavailable Patrica Cruz Unavailable GUICHO Cruz Primary Care Provider MD Genaro Sheldon Attending Provider [phone] Unavailable Primary Care Provider UnavailKESHA Rodriguez Referring Unavailable KESHA CLIFTON Attending Unavailable KESHA CLIFTON Attending Unavailable GUICHO Cruz Primary Care Provider GUICHO Cruz Attending Provider Patrica Cruz Attending Unavailable Patrica Cruz Admitting Unavailable Patrica Cruz Primary Care Unavailable Genaro Sheldon Admitting Unavailable Genaro Sheldon Attending Unavailable Patrica Cruz Primary Care Unavailable Elia HUERTA Attending Unavailable DEANNA, Elia Cardona Attending Unavailable Elia HUERTA Attending Unavailable DEANNA, Elia Cardona Attending Unavailable DEANNA, Elia Cardona Attending Unavailable HUERTA, Elia Cardona Admitting Unavailable Elia HUERTA Referring Unavailable Elia HUERTA Attending Unavailable Elia HUERTA Attending Unavailable Allergies Allergy Classification Reported Allergen(s) Allergy Type Date of Onset Reaction(s) Facility Adrenergic Antagonists (2 sources) Doxazosin Drug Allergy 5 [facility] Repository (20 sources) Doxazosin; Translations: [doxazosin] Drug Allergy 3 Anaphylaxis (disorder), anaphylaxis [facility] Other Medications Current Medications Medication Drug Class(es) Dates Sig (Normalized) Sig (Original) acetaminophen 500 mg oral tablet (20 sources) Start: 06-26-2019 take 1 mg by mouth every six hours acetaminophen 500 mg Tab mg tab(s), Oral, q6hr, Refills(s) 0 Start Date: 06/26/19 Status: Ordered take 1 capsule by mouth every si x hours Acetaminophen 500 MG 1 capsule as needed Orally every 6 hrs Active Comment on above: Take 500 mg by mouth every 6 hours as needed. [id number] actuat albuterol 0.09 mg/actuat metered dose inhaler (17 sources) beta2-Adrenergic Agonist Albuter ol Sulfate HFA [...] in structed. atorvastatin 80 mg oral tablet (20 sources) HMG-CoA Reductase Inhibitor Start: 020 take 1 tablet by mouth once daily atorvastatin 80 mg Tab 80 mg = 1 tab(s), Oral, Daily, # 30 tab(s), Refills(s) 0 Start Date: 06/26/19 Status: Ordered Comment on above: Take 80 mg by mouth once daily. azithromycin 250 mg oral tablet (5 sources) Macrolide Antimicrobial Start: 023 Zithromax Z-Arya 250 MG 2 tablets on the first day, then 1 tablet daily for 4 days Orally Once a day for 5 day(s) Mar, Active BIPAP Machine Auto Pap Peak 20 PS 4 min 8 (14 sources) Start: 014 BIPAP Machine Auto Pap Peak 20 PS 4 min 8 as directed nightly for Download 1 month, fax to office Oct, Active Breo Ellipta 200 mcg-25 mcg/inh inhalation powder (3 sources) Start: 020 take 1 puff(s) by inhalation once daily Breo Ellipta 200 mcg-25 mcg/inh inhalation powder puff(s), Inhalation, Daily, Refill(s) 0 Start Date: 06/26/19 Status: Ordered busPIRone hydrochloride 30 mg oral tablet (20 sources) Start: 017 take 1 tablet by mouth twice daily [...] once daily. ezetimibe 10 mg oral tablet (20 sources) Dietary Cholesterol Absorption Inhibitor Start: 06-26-2019 [...] once daily. finasteride 5 mg oral tablet (20 sources) 5-alpha Reductase Inhibitor Start: 2 take 1 tablet by mouth once daily finasteride 5 mg Tab 5 mg = 1 tab(s), Oral, Daily, # 90 tab(s), Refills(s) 3, Pharmacy: [facility]/pharmacy #[id number], 174, cm, 09/05/21 10:55:00 EDT, Height/Length Dosing, 109.1, kg, 09/05/21 10:55:00 EDT, Weight Dosing Start Date: 09/05/21 Status: Ordered Comment on above: Take 5 mg by mouth o nce daily. 30 actuat fluticasone furoate 0.2 mg/actuat / vilanterol 0.025 mg/actuat dry powder inhaler (17 sources) Corticosteroid, beta2-Adrenergic Agonist take 1 puff(s) by inhalation once daily Breo Ellipta 200-25 MCG/ACT INHALE 1 PUFF INTO THE LUNGS EVERY DAY for 30 Active fluticasone-marino nterol (BREO ELLIPTA) 200-25 mcg/dose inhaler Inhale 1 Inhalation as instructed once daily. 0 Active Comment on above: Inhale 1 Inhalation as instructed once daily. guaiFENesin (5 sources) Mucinex Not-Taki ng/PRN Mucinex Active Ibuprofen (14 sources) Nonsteroidal Anti-inflammatory Drug Ibuprofen Active sertraline 100 mg oral tablet (20 sources) Serotonin Reuptake Inhibitor Start: 0 take [...] daily. tamsulosin hydrochloride 0.4 mg oral capsule (20 sources) alpha-Adrenergic Desirae Start: 2 take 1 capsule by mouth once daily tamsulosin 0.4 mg Cap 0.4 mg = 1 cap(s), Oral, Daily, # 90 cap(s), Refills(s) 3, Pharmacy: [facility]/pharmacy #[id number], 174, cm, 09/05/21 10:55:00 EDT, Height/Length Dosing, 109.1, kg, 09/05/21 10:55:00 EDT, Weight Dosing Start Date: 08/19/22 Status: Ordered Comment on above: Take 0.4 mg by mouth once daily. Ventolin HFA 90 mcg/inh Aerosol (3 sources) Start: 0 take 1 puff(s) by inhalation every six hours Ventolin HFA 90 mcg/inh Aerosol puff(s), Inhalation, q6hr, Refill(s) 0 Start Date: 06/26/19 Status: Ordered {20 (nirmatrelvir 150 MG Oral Tablet) / 10 (ritonavir 100 MG Oral Tablet) } Pack [Paxlovid 5-Day] (1 source) Start: 2 Paxlovid 20 x 150 MG & 10 [...] procedure, # 2 tab(s), Refills(s) 0, Pharmacy: [facility]/pharmacy #[id number], 174, cm, 11/12/22 12:36:00 EDT, Height/Length Dosing, 112, kg, 11/12/22 12:36:00 EDT, Weight Dosing Start Date: 11/12/22 Status: Ordered Problems Active Problems Problem Classification Problem Date Documented Date Episodic/Chronic Anxiety disorders (20 sources) Generalized anxiety disorder; Translations: [Generalized anxiety disorder] Onset: 02-22-2021 Resolved: 08-24-2021 06-26-2019 Chronic Asthma (20 sources) Asthma; Translations: [Unspecified asthma, uncomplicated] Onset: 02-22-2021 Resolved: 08-24-2021 06-26-2019 Chronic Cardiac and circulatory congenital anomalies (17 sources) Congenital malformation of aorta unspecified; Translations: [Abnormality of abdominal aorta] Onset: 02-22-2021 Resolved: 08-24-2021 Chronic Chronic obstructive pulmonary disease and bronchiectasis (1 source) Bronchitis, not specified as acute or chronic Episodic Coagulation and hemorrhagic disorders (17 sources) Platelet count below reference range; Translations: [Thrombocytopenia, unspecified] Onset: 02-22-2021 Resolved: 02-22-2021 Chronic Diabetes mellitus without complication (11 sources) Newly diagnosed diabetes; Translations: [Type 2 diabetes mellitus without complications] Chronic Diabetes mellitus without complication (20 sources) Prediabetes; Translations: [Prediabetes] Onset: 09-08-2020 Resolved: 08-24-2021 06-26-2019 Episodic Disorders of lipid metabolism (20 sources) Pure hypercholesterolemia , unspecified; Translations: [Hyperlipidemia] Onset: 09-07-2009 Resolved: 08-24-2021 [...] source) Encounter for immunization Episodic Mood disorders (20 sources) Recurrent major depressive episodes, moderate ; Translations: [Major depressive disorder, recurrent, moderate] Onset: 02-22-2021 Resolved: 08-24-2021 06-26-2019 Chronic Osteoarthritis (3 sources) Arthritis 07-01-2019 Chronic Other circulatory disease (1 source) Elevated blood-pressure reading, without diagnosis of hypertension Episodic Other diseases of kidney and ureters (1 source) Urinary tract obstruction; Translations: [Other obstructive and reflux uropathy] Onset: 12-25-2022 Episodic Other non-epithelial cancer of skin (14 sources) Basal cell carcinoma of skin; Translations: [Basal cell carcinoma of skin, unspecified] Episodic Other nutritional; endocrine; and metabolic disorders (20 sources) Body mass index 30+ - obesity; Translations: [Body mass index (BMI) 36.0-36.9, adult] Chronic Other nutritional; endocrine; and metabolic disorders (2 sources) Body mass index (BMI) 36.0-36.9, adult Onset: 02-22-2021 Resolved: 08-24-2021 Chronic Other nutritional; endocrine; and metabolic disorders (4 sources) Obesity, unspecified Chronic Other screening for suspected conditions (not mental disorders or infectious disease) (3 sources) Encounter for screening for malignant neoplasm of prostate; Translations: [Other specified abnormal findings of blood chemistry] Onset: 08-24-2021 Resolved: 08-24-2021 Episodic Other upper respiratory disease (14 sources) Allergic rhinitis; Translations: [Allergic rhinitis, unspecified] Chronic Other upper respiratory infections (14 sources) Chronic maxillary sinusitis; Translations: [Chronic maxillary sinusitis] Chronic Residual codes; unclassified (20 sources) Obstructive sleep apnea syndrome; Translations: [Obstructive sleep apnea (adult) (pediatric)] 06-26-2019 Chronic Residual codes; unclassified (7 sources) Obstructive sleep apnea (adult) (pediatric); Translations: [Obstructive sleep apnea] Onset: 02-22-2021 Resolved: 08-24-2021 Chronic Residual codes; unclassified (1 source) Obstructive sleep apnea (adult)(pediatric); Translations: [Obstructive sleep apnea (adult) (pediatric)] Onset: 11-07-2022 Chronic Screening and history of mental health and substance abuse codes (3 sources) Ex-smoker 08-27-2019 Episodic Unclassified (1 source) Encounter for other preprocedural examination; Translations: [Encounter for other preprocedural examination] Onset: 04-13-2023 Past or Other Problems Problem Classification Problem Date Documented Da te Episodic/Chronic Viral infection (2 sources) COVID-19 Results Test Name Value Interpretation Reference Range Facility Consultation Noteon 04-16-19 Consultation Note [id number] 0TIFF Normal [facility] XR chest 2V*on 04-13-2023 XR chest 2V* [facility] [place] [address] XRay Report Signed Patient: Rachel Ackerman MR#: [id number] : 1950 Acct:[id number] Age/Sex: 72 / M ADM Date: 04/13/23 Loc: XD Room: Type: [facility] Attending Dr: Patrica Cruz DNP Copies to: Patrica Cruz DNP Ordering Provider: Patrica Cruz DNP Date of Service: 04/13/23 XR/XR chest 2V*: Pre-op evaluation Plain film chest 2 view HISTORY: Preop assessment for prostate surgery COMPARISON: None FINDINGS: SUPPORT DEVICES: None POSTSURGICAL CHANGES: None HEART: Within normal limits PULMONARY EVA: Within normal limits MEDIASTINUM: Unremarkable LUNGS AND PLEURA: No acute lung process, pleural effusion or pneumothorax identified. Mild atelectasis/scarring. Hyperinflation. BONY STRUCTURES: Thoracic spondylosis. ADDITIONAL FINDINGS None XR/XR chest 2V* IMPRESSION: No acute process. Basilar linear atelectasis/scarring and hyperinflation. Impression dictated by: Douglas Wallace M.D.04/13/2023 2:02 PM Dictation Location: [place] [address] Transcribed By: [facility] 04/13/23 140 Dictated By: Douglas Wallace DO 04/13/231400 Signed By: 04/13/23 140 [facility] HbA1c (Bld) [Mass fraction]o n 04-01-2023 A1C HEMOGLOBIN 6.7 [facility] Other A1C HEMOGLOBIN [facility] Other [facility] 03-15-2023 Lab Reports [id number] [facility] CNOVSPon 02-20-2023 CNOVSP Visit (SP) Office (HEMASA) RACHEL ACKERMAN ([id number]) 1950 M Date Time Provider Department 02/20/23 10:45 AM KESHA CLIFTON During your visit today, we recorded the following information about you: Temperature Pulse Respiration Blood pressure 97.7 degrees 65/minute 16/minute 130/74 Weight Height 114.9 kg 1.778 m Kesha Clifton MD 02/20/2023 10:57 AM Signed PATIENT NAME: Rachel Ackerman CLINIC NO.: [id number] ATTENDING PHYSICIAN: Kesha Clifton MD DATE OF [...] Neut Date (more content not included)... Normal [facility] Consultation Noteon 02-08-20 Consultation Note [id number] 0TIFF Normal [facility] 02-07-2023 Lab Reports [id number] 0TIFF Normal [facility] CNPNon 01-30-2023 CNPN Telephone (HEMTSA) RACHEL ACKERMAN ([id number]) 1950 M Date Time Provider Department 01/30/23 [...] Fully Assessed Reason for Visit: Patient Question [1477] Prescriptions as of 01/30/2023 - acetaminophen (TYLENOL) [...] Encounter Status:Closed by CRYSTAL COOLEY on 01/30/23 [facility] RACHEL ACKERMAN ([id number]) 1950 M Date Time Provider Department 01/28/23 [...] Crystal Cooley RN Triage please fax to [phone] or call [phone] c/o Kesha Hackett MD 01/28/2023 2:23 PM [...] Status:Closed by CRYSTAL COOLEY on 01/28/23 Normal [facility] CBC W Auto Differential pane l (Bld)on 01-23-2023 Basophils (Bld) [#/Vol] 0.08 10*3/uL Normal <0.11 [facility] Comment on above: Order Comment: Speci men Type: BLOOD SPECIMENOrdering Facility: [facility] Address: [address] [place] [address] Performed By: #### 5 7021-8 ####[facility] LABCLIA [id number] [place] [address] Basophils/100 WBC (Bld) 1.1 % Normal [facility] Comment on above: Order Comment: Speci men Type: BLOOD SPECIMENOrdering Facility: [facility] Address: [address] [place] [address] Performed By: #### 5 7021-8 ####[facility] LABCLIA [id number] [place] [address] Differential cell count method Nom (Bld) Auto Normal [facility] Comment on above: Order Comment: Speci men Type: BLOOD SPECIMENOrdering Facility: [facility] Address: [address] [place] [address] Performed By: #### 5 7021-8 ####[facility] LABCLIA [id number] [place] [address] Eosinophils (Bld) [#/Vol] 0.12 10*3/uL Normal <0.46 [facility] Comment on above: Order Comment: Speci men Type: BLOOD SPECIMENOrdering Facility: [facility] Address: [address] [place] [address] Performed By: #### 5 7021-8 ####[facility] LABCLIA [id number] [place] [address] Eosinophils/100 WBC (Bld) 1.6 % Normal [facility] Comment on above: Order Comment: Speci men Type: BLOOD SPECIMENOrdering Facility: [facility] Address: [address] [place] [address] Performed By: #### 5 7021-8 ####[facility] LABCLIA [id number] [place] [address] Erythrocyte distribution width (RBC) [Ratio] 13.5 % Normal 11.5-15.0 [facility] Comment on above: Order Comment: Speci men Type: BLOOD SPECIMENOrdering Facility: [facility] Address: [address] [place] [address] Performed By: #### 5 7021-8 ####[facility] LABCLIA [id number] [place] [address] Hematocrit (Bld) [Volume fraction] 44.7 % Normal 39.0-51.0 [facility] Comment on above: Order Comment: Speci men Type: BLOOD SPECIMENOrdering Facility: [facility] Address: [address] [place] [address] Performed By: #### 5 7021-8 ####[facility] LABCLIA [id number] [place] [address] Hemoglobin (Bld) [Mass/Vol] 15.4 g/dL Normal 13.0-17.0 [facility] Comment on above: Order Comment: Speci men Type: BLOOD SPECIMENOrdering Facility: [facility] Address: [address] [place] [address] Performed By: #### 5 7021-8 ####[facility] LABCLIA [id number] [place] [address] Immature granulocytes (Bld) [#/Vol] 0.04 10*3/uL Normal <0.10 [facility] Comment on above: Order Comment: Speci men Type: BLOOD SPECIMENOrdering Facility: [facility] Address: [address] [place] [address] Performed By: #### 5 7021-8 ####[facility] LABCLIA [id number] [place] [address] Immature granulocytes/100 WBC (Bld) 0.5 % Normal [facility] Comment on above: Order Comment: Speci men Type: BLOOD SPECIMENOrdering Facility: [facility] Address: [address] [place] [address] Performed By: #### 5 7021-8 ####[facility] LABCLIA [id number] [place] [address] Lymphocytes (Bld) [#/Vol] 2.40 10*3/uL Normal 1.00-4.00 [facility] Comment on above: Order Comment: Speci men Type: BLOOD SPECIMENOrdering Facility: [facility] Address: [address] [place] [address] Performed By: #### 5 7021-8 ####[facility] LABCLIA [id number] [place] [address] Lymphocytes/100 WBC (Bld) 31.6 % Normal [facility] Comment on above: Order Comment: Speci men Type: BLOOD SPECIMENOrdering Facility: [facility] Address: [address] [place] [address] Performed By: #### 5 7021-8 ####[facility] LABCLIA [id number] [place] [address] MCH (RBC) [Entitic mass] 28.7 pg Normal 26.0-34.0 [facility] Comment on above: Order Comment: Speci men Type: BLOOD SPECIMENOrdering Facility: [facility] Address: [address] [place] [address] Performed By: #### 5 7021-8 ####[facility] LABCLIA [id number] [place] [address] MCHC (RBC) [Mass/Vol] 34.5 g/dL Normal 30.5-36.0 [facility] Comment on above: Order Comment: Speci men Type: BLOOD SPECIMENOrdering Facility: [facility] Address: [address] [place] [address] Performed By: #### 5 7021-8 ####[facility] LABCLIA [id number] [place] [address] MCV (RBC) [Entitic vol] 83.2 fL Normal 80.0-100.0 [facility] Comment on above: Order Comment: Speci men Type: BLOOD SPECIMENOrdering Facility: [facility] Address: [address] [place] [address] Performed By: #### 5 7021-8 ####[facility] LABCLIA [id number] [place] [address] Monocytes (Bld) [#/Vol] 0.60 10*3/uL Normal <0.87 [facility] Comment on above: Order Comment: Speci men Type: BLOOD SPECIMENOrdering Facility: [facility] Address: [address] [place] [address] Performed By: #### 5 7021-8 ####[facility] LABCLIA [id number] [place] [address] Monocytes/100 WBC (Bld) 7.9 % Normal [facility] Comment on above: Order Comment: Speci men Type: BLOOD SPECIMENOrdering Facility: [facility] Address: [address] [place] [address] Performed By: #### 5 7021-8 ####[facility] LABCLIA [id number] [place] [address] Neutrophils (Bld) [#/Vol] 4.36 10*3/uL Normal 1.45-7.50 [facility] Comment on above: Order Comment: Speci men Type: BLOOD SPECIMENOrdering Facility: [facility] Address: [address] [place] [address] Performed By: #### 5 7021-8 ####[facility] LABCLIA [id number] [place] [address] Neutrophils/100 WBC (Bld) 57.3 % Normal [facility] Comment on above: Order Comment: Speci men Type: BLOOD SPECIMENOrdering Facility: [facility] Address: [address] [place] [address] Performed By: #### 5 7021-8 ####[facility] LABCLIA [id number] [place] [address] Nucleated RBC (Bld) [#/Vol] 10*3/uL Normal <0.01 [facility] Comment on above: Order Comment: Speci men Type: BLOOD SPECIMENOrdering Facility: [facility] Address: [address] [place] [address] Performed By: #### 5 7021-8 ####[facility] LABCLIA [id number] [place] [address] Nucleated RBC/100 WBC (Bld) [Ratio] 0.0 /100 WBC Normal [facility] Comment on above: Order Comment: Speci men Type: BLOOD SPECIMENOrdering Facility: [facility] Address: [address] [place] [address] Performed By: #### 5 7021-8 ####[facility] LABCLIA [id number] [place] [address] Platelet mean volume (Bld) [Entitic vol] 9.2 fL Normal 9.0-12.7 [facility] Comment on above: Order Comment: Speci men Type: BLOOD SPECIMENOrdering Facility: [facility] Address: [address] [place] [address] Performed By: #### 5 7021-8 ####[facility] LABIA [id number] [place] [address] Platelets (Bld) [#/Vol] 128 10*3/uL Low 150-400 [facility] Comment on above: Order Comment: Speci men Type: BLOOD SPECIMENOrdering Facility: [facility] Address: [address] [place] [address] Performed By: #### 5 7021-8 ####[facility] LABIA [id number] [place] [address] RBC (Bld) [#/Vol] 5.37 10*6/uL Normal 4.20-6.00 [facility] Comment on above: Order Comment: Speci men Type: BLOOD SPECIMENOrdering Facility: [facility] Address: [address] [place] [address] Performed By: #### 5 7021-8 ####[facility] [id number] [place] [address] WBC (Bld) [#/Vol] 7.60 10*3/uL Normal 3.70-11.00 [facility] Comment on above: Order Comment: Speci men Type: BLOOD SPECIMENOrdering Facility: [facility] Address: [address] [place] [address] Performed By: #### 5 7021-8 ####[facility] [id number] [place] [address] CNOVSPon 01-23-2023 CNOVS Visit (SP) Office (HEMAS[place]) RACHEL ACKERMAN ([id number]) 1950 M Date Time Provider Department 01/23/23 12:00 PM KESHA CLIFTON During your visit today, we recorded the following information about you: Temperature Pulse Respiration Blood pressure 97.6 degrees 65/minute 18/minute 137/76 Weight Height 114.3 kg 1.778 m Kesha Clifton MD 01/23/2023 12:34 PM Signed PATIENT NAME: Rachel Ackerman CLINIC NO.: [id number] ATTENDING PHYSICIAN: Kesha Clifton MD DATE OF [...] are intact. (more content not included)... Normal [facility] Comprehensive metabolic 2000 panelon 01-23-2023 Albumin [Mass/Vol] 4.7 g/dL Normal 3.9-4.9 [facility] Comment on above: Order Comment: Speci men Type: BLOOD SPECIMENOrdering Facility: [facility] Address: [address] [place] [address] Performed By: #### 2 4323-8, 2531-0 ####[facility] LABCLIA [id number] [place] [address] [place] ALP [Catalytic activity/Vol] 97 U/L Normal 38-113 [facility] Comment on above: Order Comment: Speci men Type: BLOOD SPECIMENOrdering Facility: [facility] Address: [address] [place] [address] Performed By: #### 2 4328, 2531-0 ####[facility] LABIA [id number] [place] [address] [place] ALT [Catalytic activity/Vol] 38 U/L Normal 10-54 [facility] Comment on above: Order Comment: Speci men Type: BLOOD SPECIMENOrdering Facility: [facility] Address: [address] [place] [address] Performed By: #### 2 4323-8, 2531-0 ####[facility] LABIA [id number] [place] [address] [place] Anion gap [Moles/Vol] 13 mmol/L Normal 9-18 [facility] Comment on above: Order Comment: Speci men Type: BLOOD SPECIMENOrdering Facility: [facility] Address: [address] [place] [address] Performed By: #### 2 4323-8, 2531-0 ####[facility] LABIA [id number] [place] [id number] [place] [place] AST [Catalytic activity/Vol] 29 U/L Normal 14-40 [facility] Comment on above: Order Comment: Speci men Type: BLOOD SPECIMENOrdering Facility: [facility] Address: [address] [place] [address] Performed By: #### 2 432-8, 0 ####[facility] LABCLIA [id number] [facility] [address] [address] [place] Bilirubin [Mass/Vol] 1.3 mg/dL Normal 0.2-1.3 [facility] Comment on above: Order Comment: Speci men Type: BLOOD SPECIMENOrdering Facility: [facility] Address: [address] [place] [address] Performed By: #### 2 432-8, 0 ####[facility] LABCLIA [id number] [place] [address] [place] Calcium [Mass/Vol] 9.0 mg/dL Normal 8.5-10.2 [facility] Comment on above: Order Comment: Speci men Type: BLOOD SPECIMENOrdering Facility: [facility] Address: [address] [place] [address] Performed By: #### 2 4328, 0 ####[facility] LABCLIA [id number] [place] [address] [place] Chloride [Moles/Vol] 103 mmol/L Normal 97-105 [facility] Comment on above: Order Comment: Speci men Type: BLOOD SPECIMENOrdering Facility: [facility] Address: [address] [place] [id number] Performed By: #### 2 4323-8, 0 ####[facility] LABCLIA [id number] [place] [id number] [place] CO2 [Moles/Vol] 23 mmol/L Normal 22-30 [facility] Comment on above: Order Comment: Speci men Type: BLOOD SPECIMENOrdering Facility: [facility] Address: [address] [place] [id number] Performed By: #### 2 4323-8, 2531-0 ####[facility] LABIA [id number] [place] [id number] [place] Creatinine [Mass/Vol] 0.98 mg/dL Normal 0.73-1.22 [facility] Comment on above: Order Comment: Speci men Type: BLOOD SPECIMENOrdering Facility: [facility] Address: [address] [place] [address] Performed By: #### 2 4323-8, 2531-0 ####[facility] LABIA [id number] [place] [address] [place] Creatinine and Glomerular filtration rate.predicted panel (S/P/Bld) 82 mL/min/1.73m??? Normal >=60 [facility] Comment on above: Order Comment: Alana morris Type: BLOOD SPECIMENOrdering Facility: [facility] Address: [address] [place] [address] Result Comment: Maureen mated Glomerular Filtration Rate [...] actual GFR. Performed By: #### 2 4323-8, 2531-0 ####[facility] LABIA [id number] [place] [id number] [place] Glucose [Mass/Vol] 89 mg/dL Normal 74-99 [facility] Comment on above: Order Comment: Tinoi men Type: BLOOD SPECIMENOrdering Facility: [facility] Address: [address] [place] [address] Result Comment: The [place] [employer] (ADA) provides guidance for cutoff [...] Standards of Medical Care in Diabetes 2016, [place] [employer]. Diabetes Care. 2016.39(Suppl 1). Performed By: #### 2 43206-20, 0 ####[facility] LABCLIA [id number] [address] [address] [place] Potassium [Moles/Vol] 4.2 mmol/L Normal 3.7-5.1 [facility] Comment on above: Order Comment: Alana men Type: BLOOD SPECIMENOrdering Facility: [facility] Address: [address] [place] [address] Performed By: #### 2 4322-11, 0 ####[facility] LABCLIA [id number] [place] [address] [place] Protein [Mass/Vol] 6.9 g/dL Normal 6.3-8.0 [facility] Comment on above: Order Comment: Alana morris Type: BLOOD SPECIMENOrdering Facility: [facility] Address: [address] [place] [address] Performed By: #### 2 4322-11, 0 ####[facility] LABCLIA [id number] [address] [address] [place] Sodium [Moles/Vol] 139 mmol/L Normal 136-144 [facility] Comment on above: Order Comment: Tinoi men Type: BLOOD SPECIMENOrdering Facility: [facility] Address: [address] [place] [address] Performed By: #### 2 43206-20, 2531-0 ####[facility] LABCLIA [id number] [address] [address] [place] Urea nitrogen [Mass/Vol] 15 mg/dL Normal 9-24 [facility] Comment on above: Order Comment: Speci men Type: BLOOD SPECIMENOrdering Facility: [facility] Address: [address] [place] [address] Performed By: #### 2 4323-8, 2532-0 ####[facility] LABCLIA [id number] [place] [address] [place] Ferritin SerPl-mCncon 2022 Ferritin [Mass/Vol] 306.0 ng/mL Normal 30.3-565.7 [facility] Comment on above: Order Comment: Speci men Type: BLOOD SPECIMEN [facility] Address: [address] [place] [address] Performed By: #### 2 276-4, 46439-7 #### [facility] CLIA [id number] [address] [place] [address] [place] Folate SerPl-mCncon 01-24-20 Folate [Mass/Vol] 11.3 ng/mL Normal >4.7 [facility] Comment on above: Order Comment: Tinoi men Type: BLOOD SPECIMENOrdering Facility: [facility] Address: [address] [place] [address] Performed By: #### 2 885-2, 2132-9, 2284-8 ####[facility] LABCLIA [id number] [place] [address] [place] HBV core Ab Ser Qlon 023 HBV core Ab Ql (S) Negative Normal Negative [facility] Comment on above: Order Comment: Speci men Type: BLOOD SPECIMENOrdering Facility: [facility] Address: [address] [place] [address] Result Comment: No e vidence of current or past infection with Hepatitis B virus. Should recent infection be suspected, repeat testing may be considered 3-4 weeks after this draw. Performed By: #### 2 2322-2, 44418-0, 5195-3 ####[facility] LABCLIA [id number] [place] [address] [place] HBV surface Ab Ql (S)on 01-13 HBV surface Ab Qn (S) <8.00 Normal [facility] Comment on above: Order Comment: Speci men Type: BLOOD SPECIMENOrdering Facility: [facility] Address: [address] [place] [address] Result Comment: <8 m IU/mL: No serological evidence of immunity to Hepatitis B Virus. >/= 8 to <12 mIU/mL: No serological evidence of immunity to Hepatitis B Virus. >/= 12 mIU/mL: Consistent with serological evidence of immunity to Hepatitis B Virus. Performed By: #### 2 2322-2, 34726-9, 5-3 ####[facility] LABCLIA [id number] [place] [address] [place] HBV surface Ab Ser Qlon 01-13 HBV surface Ab Ql (S) Negative Normal [facility] Comment on above: Order Comment: Speci men Type: BLOOD SPECIMENOrdering Facility: [facility] Address: [address] [place] [address] Result Comment: No s erological evidence of immunity to Hepatitis B Virus. Performed By: #### 2 2322-2, 07749-7, 5194-3 ####[facility] LABCLIA [id number] [place] [address] [place] HBV surface Ag Ser Qlon 01-13 HBV surface Ag Ql (S) Negative Normal Negative [facility] Comment on above: Order Comment: Speci men Type: BLOOD SPECIMENOrdering Facility: [facility] Address: [address] [place] [address] Performed By: #### 2 2322-2, 05601-9, 5194-3 ####[facility] LABCLIA [id number] [place] [address] [place] HCV Ab Ser Qlon 01-23-2023 HCV Ab Ql (S) Negative Normal Negative [facility] Comment on above: Order Comment: Speci men Type: BLOOD SPECIMENOrdering Facility: [facility] Address: [address] [place] [address] Result Comment: The result suggests no evidence of active infection with Hepatitis C virus. Should recent infection be suspected, repeat testing may be considered 4-6 weeks after this draw. Performed By: #### 1 6128-1 ####[facility] LABCLIA [id number] [address] [facility] IMMUNOFIXATION SCREEN, SERUM on 01-23-2023 MPA RESULT No M protein is identified. Normal No M protein is identified. [facility] Comment on above: Order Comment: Speci men Type: BLOOD SPECIMENOrdering Facility: [facility] Address: [address] [place] [address] Performed By: #### I FESC ####[facility] LABCLIA [id number] [address] [place] STAFF REVIEW (MPA) Reviewed by Guerline Swift MD [facility] Comment on above: Order Comment: Speci men Type: BLOOD SPECIMENOrdering Facility: [facility] Address: [address] [place] [address] Performed By: #### I FES ####[facility] LABCLIA [id number] [place] [address] [place] IMMUNOGLOBULINS GAMon 2022 IgA [Mass/Vol] 217 mg/dL Normal 70-400 [facility] Comment on above: Order Comment: Speci men Type: BLOOD SPECIMENOrdering Facility: [facility] Address: [address] [place] [address] Performed By: #### S ERIMM ####[facility] LABCLIA [id number] [place] [address] [place] IgG [Mass/Vol] 816 mg/dL Normal 700-1600 [facility] Comment on above: Order Comment: Speci men Type: BLOOD SPECIMENOrdering Facility: [facility] Address: [address] [place] [address] Performed By: #### S ERIMM ####[facility] LABCLIA [id number] [place] [address] [place] IgM [Mass/Vol] 37 mg/dL Low 40-230 [facility] Comment on above: Order Comment: Speci men Type: BLOOD SPECIMENOrdering Facility: [facility] Address: [address] [place] [address] Performed By: #### S ERIMM ####[facility] LABCLIA [id number] [place] [address] [place] Iron and Iron binding capaci ty panelon 01-23-2023 Iron [Mass/Vol] 82 ug/dL Normal 41-186 [facility] Comment on above: Order Comment: Speci men Type: BLOOD SPECIMEN [facility] Address: [address] [place] [address] Performed By: #### 2 276-4, 52745-5 #### [facility] CLIA [id number] [address] [place] [address] [place] Iron binding capacity [Mass/Vol] 374 ug/dL Normal 232-386 [facility] Comment on above: Order Comment: Speci men Type: BLOOD SPECIMEN [facility]: [facility] Address: [address] [place] [address] Performed By: #### 2 276-4, 61085-4 #### [facility] CLIA [id number] [address] [place] [address] [place] Iron/TIBC [Molar ratio] 21.9 % Normal 15.0-57.0 [facility] Comment on above: Order Comment: Speci men Type: BLOOD SPECIMEN [facility]: [facility] Address: [address] [place] [address] Performed By: #### 2 276-4, 44638-5 #### [facility] CLIA [id number] [address] [place] [address] [place] KAPPA/DIAZ,FREE,SERon 2022 Immunoglobulin light chains.kappa.free (S) [Mass/Vol] 16.8 mg/L Normal 3.3-19.4 [facility] Comment on above: Order Comment: Speci men Type: BLOOD SPECIMEN [facility]: [facility] Address: [address] [place] [address] Result Comment: Rare ly, increased serum free light chains levels may not be detected or accurately quantified due to prozone phenomenon or in high viscosity samples using this immunoturbidimetric assay. Correlation with other laboratory results and clinical findings is recommended. The [place] Free Light Chain was performed using the Binding Site Optilite immunoturbidimetric method. Result obtained with different assay methods or kits cannot be used interchangeably. Performed By: #### K LFRS #### [facility] CLIA [id number] [address] [place] [address] [place] Immunoglobulin light chains.kappa/Immuno globulin light chains.lambda (S) [Mass ratio] 1.62 Normal 0.26-1.65 [facility] Comment on above: Order Comment: Speci men Type: BLOOD SPECIMEN [facility] Address: [address] [place] [address] Performed By: #### K LFRS #### [facility] CLIA [id number] [address] [place] [address] [place] Immunoglobulin light chains.lambda.free [Mass/Vol] 10.4 mg/L Normal 5.7-26.3 [facility] Comment on above: Order Comment: Speci men Type: BLOOD SPECIMEN [facility] Address: [address] [place] [address] Result Comment: Rare ly, increased serum free [...] interchangeably. Performed By: #### K LFRS #### [facility] CLIA [id number] [address] [place] [address] [place] LDH SerPl-cCncon 01-23-2023 LDH [Catalytic activity/Vol] 255 U/L High 135-225 [facility] Comment on above: Order Comment: Speci men Type: BLOOD SPECIMENOrdering Facility: [facility] Address: [address] [place] [address] Performed By: #### 2 4323-8, 2532-0 ####[facility] LABIA [id number] [place] [address] [place] PROTEIN ELECTROPHORESIS SERU M (P)on 01-23-2023 Albumin [Mass/Vol] 4.57 g/dL Normal 3.43-5.41 [facility] Comment on above: Order Comment: Speci men Type: BLOOD SPECIMENOrdering Facility: [facility] Address: [address] [place] [address] Performed By: #### L [id number] ####[facility] LABIA [id number] [place] [address] [place] Alpha 1 globulin Elph [Mass/Vol] 0.27 g/dL Normal 0.18-0.43 [facility] Comment on above: Order Comment: Speci men Type: BLOOD SPECIMENOrdering Facility: [facility] Address: [address] [place] [address] Performed By: #### L [id number] ####[facility] LABIA [id number] [place] [address] [place] Alpha 2 globulin Elph [Mass/Vol] 0.66 g/dL Normal 0.42-0.98 [facility] Comment on above: Order Comment: Speci men Type: BLOOD SPECIMENOrdering Facility: [facility] Address: [address] [place] [address] Performed By: #### L [id number] ####[facility] LABCLIA [id number] [place] [address] [place] Beta globulin Elph [Mass/Vol] 0.79 g/dL Normal 0.61-1.17 [facility] Comment on above: Order Comment: Speci men Type: BLOOD SPECIMENOrdering Facility: [facility] Address: [address] [place] [address] Performed By: #### L [id number] ####[facility] LABIA [id number] [place] [address] [place] Gamma globulin Elph [Mass/Vol] 0.61 g/dL Normal 0.53-1.51 [facility] Comment on above: Order Comment: Speci men Type: BLOOD SPECIMENOrdering Facility: [facility] Address: [address] [place] [address] Performed By: #### L [id number] ####[facility] LABIA [id number] [place] [address] [place] M-PROTEIN LOCATION Normal [facility] Comment on above: Order Comment: Speci men Type: BLOOD SPECIMENOrdering Facility: [facility] Address: [address] [place] [address] Result Comment: Not Applicable. Performed By: #### L [id number] ####[facility] [id number] [place] [address] [place] Protein Fractions [Interp] No definitive M protein is identified on protein electrophoresis. Normal No definitive M protein is identified on protein electrophores is. [facility] Comment on above: Order Comment: Speci men Type: BLOOD SPECIMENOrdering Facility: [facility] Address: [address] [place] [address] Performed By: #### L [id number] ####[facility] LABIA [id number] [place] [address] [place] Protein.monoclonal Elph [Mass/Vol] 0.00 g/dL Normal <=0.00 [facility] Comment on above: Order Comment: Speci men Type: BLOOD SPECIMENOrdering Facility: [facility] Address: [address] [place] [address] Performed By: #### L [id number] ####[facility] LABCLIA [id number] [place] [id number] [place] SPE STAFF REVIEW Reviewed by Guerline Swift MD [facility] Comment on above: Order Comment: Speci men Type: BLOOD SPECIMENOrdering Facility: [facility] Address: [address] [place] [address] Performed By: #### L [id number] ####[facility] LABCLIA [id number] [place] [id number] [place] [facility] Protein [Mass/Vol] 6.7 g/dL Normal 6.3-8.0 [facility] Comment on above: Order Comment: Speci men Type: BLOOD SPECIMEN [facility] Address: [address] [place] [address] Performed By: #### 2 885-2, 2131-12, 2283-11 #### [facility] CLIA [id number] [address] [place] [address] [place] Vit B12 SerPl-mCncon 023 Cobalamin (Vitamin B12) [Mass/Vol] 516 pg/mL Normal 232-1245 [facility] Comment on above: Order Comment: Speci men Type: BLOOD SPECIMEN [facility]: [facility] Address: [address] [place] [address] Performed By: #### 2 885-2, 2131-12, 2283-11 #### [facility] CLIA [id number] [address] [place] [id number] [place] Lab Reportson 01-21-2023 Lab Reports [id number]#1.[address] [facility] Formson 01-18-2023 Forms [id number]#1. 00TIFF [facility] ECG 12-Leadon 01-16-2023 ECG 12-Lead [id number]#1.0 0CD:[address] [facility] Lab Reportson 01-16-2023 Lab Reports [id number]#1.0 0CD:[address] [facility] Lab Reports [id number]#1.0 0CD:[address] [facility] Consent for Procedure/Surger yon 12-28-2022 Consent for Procedure/Surgery [id number]#1. 00CD:[address] [facility] Consent for Procedure/Surger yon 12-26-2022 Consent for Procedure/Surgery [id number]#1. 00CD:[address] [facility] IntraOperative Documentson 0 12-26-2022 IntraOperative Documents [id number]#1. 00CD:[address] [facility] IntraOperative Documents [id number]#1. 00CD:[address] [facility] Outpatient Surgery Discharge Instructionon 12-26-2022 Outpatient Surgery Discharge Instruction [id number]#1. 00CD:[address] [facility] Consent for Treatmenton 12-14 Consent for Treatment [id number]#1.0 0CD:[address] [facility] Main OR Intraoperative Recor don 12-25-2022 Main OR Intraoperative Record IntraOp Document Type FTURO Summary Primary Physician: DEANNA WADDELL, Elia Cardona Finalized Date/Time: 12/25/22 16:59:16 Pt. Name: RACHEL ACKERMAN Brendan Benson/Sex: 1950 Male Med Rec #: [id number] Physician: Elia HUERTA MD Financial #: [id number] Pt. Type: O Room/Bed: / Admit/Disch: 12/25/22 14:41:50 - Institution: Case Times FTURO Entry 1 Patient Times In Room 12/25/22 16:50:00 Out Room 12/25/22 17:03:00 Procedure Times Start 12/25/22 16:55:00 Stop 12/25/22 16:58:00 Anesthesia Times Last Modified By: Jihan Rader RN 12/25/22 16:59:06 Case Attendance FTURO Entry 1 Entry 2 Entry 3 Case Attendee DEANNA WADDELL, Elia Rader RN, Jihan Velázquez [employer], Kinza Gonzalez Role Performed Surgeon - Primary Sports Book Writer - Primary Scrub - Primary Time In 12/25/22 16:50:00 12/25/22 16:50:00 12/25/22 16:50:00 Time Out 12/25/22 17:03:00 12/25/22 17:03:00 12/25/22 17:03:00 Procedure CYSTOSCOPY LOCAL(.) CYSTOSCOPY LOCAL(.) CYSTOSCOPY LOCAL(.) Comments Last Modified By: Prasanth HALL, Jihan Rader RN, Jihan Rader RN, Jihan Murray 12/25/22 16:59:07 12/25/22 16:59:07 12/25/22 16:59:07 Surgical [...] By: Jihan Rader RN 12/25/22 16:59 Normal [facility] Main OR Preoperative Recordo n 12-25-2022 Main OR Preoperative Record Holding Area Document Type FTURO Summary Primary Physician: Elia HUERTA MD Finalized Date/Time: 12/25/22 16:18:39 Pt. Name: RACHEL ACKERMAN /Sex: 1950 Male Med Rec #: [id number] Physician: Elia HUERTA MD Financial #: [id number] Pt. Type: O Room/Bed: / Admit/Disch: 12/25/22 [...] By: Kinza Pulliam RN 12/25/22 16:18 Normal [facility] Operative Reporton Operative Report Patient: RACHEL ACKERMAN Age: 72 years Sex: Male : 1950 Associated Diagnoses: None Author: Elia HUERTA MD Procedure Operative Information Details: Date/ Time: 12/25/2022 17:01:00. Pre-Op Dx: BPH w/ LUTS - N40.1, Incomplete Bladder Emptying - R39.14. Post-Op Dx: Same. Anesthesia Type: Local. Procedure: Local Cystoscopy. Complications: None. Risks/Benefits/Informe d Consent: Surgical risks, benefits, details of the [...] up arranged. Plan for a TURP.. 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 / Confirmed Asthma / SNOMED CT 663998504 / Confirmed Moderate episode of recurrent major depressive disorder / SNOMED CT 953507213 / Confirmed Generalized anxiety disorder / SNOMED CT 03724005 / Confirmed Prediabetes / SNOMED CT 1252830365 / Confirmed Urinary retention / SNOMED CT 391053386 / Confirmed Nocturia / SNOMED CT 321544596 / Confirmed Urinary urgency / SNOMED CT 791053110 / Confirmed Post-void dribbling / SNOMED CT 453050779 / Confirmed Incontinence / SNOMED CT 82348507 / Confirmed Urinary frequency / SNOMED CT 075409662 / Confirmed Former smoker / SNOMED CT 54688152 / Confirmed Histories Past Medical History: Resolved Arthritis (0613709): Resolved. Asthma (720353494): Resolved. Family History: Hypertension Father () Alcoholism Father () Primary malignant neoplasm of bone Sister () Heart disease Father () Mother () Procedure history: Nasal sinus procedure (2729045698) in the month of 02/2017 at 66 Years. Excision of basal cell carcinoma- Left ear (497754526) in the month of 08/2016 at 65 Years. Cataract surgery (160327455) in the month of 02/2016 at 65 Years. Colonoscopy (055129272) in 2016 at 65 Years. Arthroscopy of knee- Right (472957667) in the month of 06/2014 at 63 Years. Pharyngeal operation for obstructive sleep apnea and snoring (249722476) in 2000 at 49 Years. Tonsillectomy (624978087). Social History Social & Psychosocial Habits Tobacco [...] him scheduled for TURP under anesthesia. Normal [facility] Comment on above: Result Comment: Elec tronically Signed By: DEANNA WADDELL, Elia Cardona\.br\Date and Time Signed: 12/25/22 17:07 EDT Consent for Procedure/Surger yon 11-13-2022 Consent for Procedure/Surgery [id number]#1.0 0CD:[address] [facility] Lab Reportson 11-13-2022 Lab Reports [id number]#1.0 0CD:[address] [facility] Ambulatory Visit Summaryon 0 11-12-2022 Ambulatory Visit Summary RACHEL ACKERMAN Brendan :1950 Visit Date:11/12/2022 Ambulatory Visit Instructions Your Diagnosis BPH with urinary obstruction Urinary urgency Tests Performed Urnls Dip Stick Auto w/o Microscopy POC 57238 Your Care Team Attending Physician - Elia HUERTA MD Primary Care Physician - PATRICA CRUZ CNP [...] cysto Where: [facility] [address], [place] [phone] Medications What How Much When Instructions Unchanged [...] Urnls Dip Stick Auto w/o Microscopy POC 73800 (11/12/2022) Bilirubin Urine Dipstick - Negative Blood Urine Dipstick - Negative Glucose Urine Dipstick - Negative Ketones Urine Dipstick - Negative Leukocytes Urine Dipstick - Negative Nitrite Urine Dipstick - Negative Protein Urine Dipstick - Negative Specific [place] Urine Dipstick - 1.010 Urine Appearance Urine [...] including vitamins, herbs, eye drops, creams, and lzpr-bkq-olpgpmk medicines. ? Any problems you or family members have had with anesthetic medicines. ? Any bleeding problems you have. ? Any surgeries you have had. ? Any medical conditions you have. ? Any prostate infections you have had. What are the risks? Generally, this is a safe procedure. However, problems may occur, including: ? Infection. ? Bleeding. ? (more content not included)... Normal [facility] Patient Educationon 11-13-19 23 Patient Education [...] including vitamins, herbs, eye drops, creams, and njpr-hze-sfiqlto medicines. ? Any problems you or family [...] tells you to take them. ? Taking kmac-zip-dvazzlf medicines, vitamins, herbs, and supplements. Surgery safety [...] health care (more content not included)... Normal [facility] Urology Office/Clinic Noteon 11-12-2022 Urology Office/Clinic [...] urgency. Follow-up With When Contact Information DEANNA WADDELL, Elia Cardona, [facility] [address], [place] [phone] [phone] Additional Instructions: sched urodynamics and cysto Patient [...] Aerosol, Inhalat (more content not included)... Normal [facility] Comment on above: Result Comment: Elec tronically Signed By: Mary Gibson.br\Date and Time Signed: 11/12/22 13:54 EDT A1C HEMOGLOBINon 09-27-2022 HbA1c (Bld) [Mass fraction] 6.0 % [facility] Other HbA1c (Bld) [Mass fraction]o n 09-27-2022 A1C HEMOGLOBIN [facility] Other A1C HEMOGLOBINon 02-26-2022 HbA1c (Bld) [Mass fraction] 5.6 % [facility] Other HbA1c (Bld) [Mass fraction]o n 02-26-2022 A1C HEMOGLOBIN [facility] Other HbA1c (Bld) [Mass fraction]o n 08-24-2021 A1C HEMOGLOBIN 6.1 [facility] Other A1C HEMOGLOBIN [facility] Other A1C HEMOGLOBINon 02-22-2021 HbA1c (Bld) [Mass fraction] 5.9 % [facility] Other HbA1c (Bld) [Mass fraction]o n 02-22-2021 A1C HEMOGLOBIN [facility] Other CBC AUTO DIFFon 09-02-2020 BASO # 0.1 103/ul Normal 0.0-0.1 [facility] Comment on above: Performed By: #### C BC #### [facility] [address], [place] [address] Martha Yancey Basophils/100 WBC (Bld) 1.2 % Normal 0.2-2.0 [facility] Comment on above: Performed By: #### C BC #### [facility] [address] [address] Martha Naye EO # 0.2 103/ul Normal 0.0-0.7 [facility] Comment on above: Performed By: #### C BC #### [facility] [address] [id number] Martha Naye Eosinophils/100 WBC (Bld) 2.4 % Normal 0.9-7.0 [facility] Comment on above: Performed By: #### C BC #### [facility] [address] [id number] Martha Naye Erythrocyte distribution width (RBC) [Ratio] 13.1 % Normal 11.0-15.0 [facility] Comment on above: Performed By: #### C BC #### [facility] [address] [place] [address] Martha Naye Hematocrit (Bld) [Volume fraction] 45.5 % Normal 42.0-54.0 [facility] Comment on above: Performed By: #### C BC #### [facility] [address] [place], [place] [id number] Martha Naye Hemoglobin (Bld) [Mass/Vol] 15.6 g/dL Normal 14.0-18.0 [facility] Comment on above: Performed By: #### C BC #### [facility] [address] [place], [place] [id number] Martha Naye IG # 0.08 10e3/ul Critically high 0.00-0.03 [facility] Comment on above: Performed By: #### C BC #### [facility] [address] [place] [address] Martha Naye IG % 1.1 % Critically high 0.0-0.5 [facility] Comment on above: Performed By: #### C BC #### [facility] [address] [place], [place] [id number] Martha Naye LYMPH # 2.7 103/ul Normal 1.2-3.8 [facility] Comment on above: Performed By: #### C BC #### [facility] [address] [place], [place] [id number] Martha Naye Lymphocytes/100 WBC (Bld) 35.8 % Normal 20.5-60.0 [facility] Comment on above: Performed By: #### C BC #### [facility] [address] [place], [place] [id number] Martha Yancey MANUAL DIFF REQ NO Normal [facility] Comment on above: Performed By: #### C BC #### [facility] [address] [place], [place] [id number] Marthajosué Yancey MCH (RBC) [Entitic mass] 29.4 pg Normal 25.9-34.0 [facility] Comment on above: Performed By: #### C BC #### [facility] [address] [place] [address] Marthajosué Yancey MCHC (RBC) [Mass/Vol] 34.3 g/dL Normal 29.9-35.2 [facility] Comment on above: Performed By: #### C BC #### [facility] [address] [place] [address] Marthajosué Yancey MCV (RBC) [Entitic vol] 85.7 fL Normal 80.0-94.0 [facility] Comment on above: Performed By: #### C BC #### [facility] [address] [place], [place] [id number] Marthajosué Yancey MONO # 0.6 103/ul Normal 0.3-0.8 [facility] Comment on above: Performed By: #### C BC #### [facility] [address] [place] [address] Martha Yancey Monocytes/100 WBC (Bld) 7.4 % Normal 1.7-12.0 [facility] Comment on above: Performed By: #### C BC #### [facility] [address] [place], [place] [id number] Martha Naye NEUT # 3.9 103/ul Normal 1.4-6.5 [facility] Comment on above: Performed By: #### C BC #### [facility] [address] [place], [place] [id number] Martha Naye Neutrophils/100 WBC (Bld) 52.1 % Normal 43.0-75.0 [facility] Comment on above: Performed By: #### C BC #### [facility] [address] [id number] Martha Naye Platelet mean volume (Bld) [Entitic vol] 9.1 fL Critically low 9.5-13.5 [facility] Comment on above: Performed By: #### C BC #### [facility] [address] [place], [place] [phone] Martha Naye PLT 135 103/ul Critically low 150-450 [facility] Comment on above: Performed By: #### C BC #### [facility] [address] [place], [place] [phone] Martha Naye RBC 5.31 106/ul Normal 4.70-6.10 [facility] Comment on above: Performed By: #### C BC #### [facility] [address] [place], [place] [phone] Martha Naye WBC 7.5 103/ul Normal 4.0-11.0 [facility] Comment on above: Performed By: #### C BC #### [facility] [address] [place], [place] [phone] Martha Naye LIPID PROFILEon 09-02-2020 CHOL-HDL RATIO NORM SEE BELOW Normal [facility] Comment on above: Result Comment: 3.3 - 4.4 LOW RISK 4.4 - 7.1 AVERAGE RISK 7.1 - 11.0 MODERATE RISK >11.0 HIGH RISK Performed By: #### T SH, CMP, LIPID #### [facility] [address] [place], [place] [phone] Martha Naye Cholesterol [Mass/Vol] 171 mg/dL Normal <=200 [facility] Comment on above: Performed By: #### T SH, CMP, LIPID #### [facility] [address] [place], [place] [phone] Martha Naye Cholesterol in HDL [Mass/Vol] 35 mg/dL Normal [facility] Comment on above: Performed By: #### T SH, CMP, LIPID #### [facility] [address] [place], [place] [address] Martha Naye Cholesterol in LDL [Mass/Vol] 81.8 mg/dL Normal [facility] Comment on above: Performed By: #### T GEORGI, CMP, LIPID #### [facility] [address], [place] [address] Martha Naye Cholesterol.total/C holesterol in HDL [Mass ratio] 4.9 {ratio} Normal [facility] Comment on above: Performed By: #### T GEORGI, CMP, LIPID #### [facility] [address], [place] [address] Martha Naye HDL NORMAL > or = 60 mg/dl - LO W CARDIOVASCULAR RISK <40 mg/dl - HIGH CARDIOVASCULAR RISK Normal [facility] Comment on above: Performed By: #### T GEORGI, CMP, LIPID #### [facility] [address] [place], [place] [phone] Martha Naye LDL CALC NORMAL SEE BELOW Normal [facility] Comment on above: Result Comment: <100 mg/dl OPTIMAL 100 - 129 mg/dl NEAR OR ABOVE OPTIMAL 130 - 159 mg/dl BORDERLINE HIGH 160 - 189 mg/dl HIGH >190 mg/dl VERY HIGH Performed By: #### T SH, CMP, LIPID #### [facility] [address] [address] Martha Naye Triglyceride [Mass/Vol] 271 mg/dL Critically high <=150 [facility] Comment on above: Performed By: #### T GEORGI, CMP, LIPID #### [facility] [address] [phone] Martha Naye VLDL CALC 54.2 mg/dL Normal [facility] Comment on above: Performed By: #### T SH, CMP, LIPID #### [facility] [address] [phone] Martha Naye MICROALB CREAT RATIO RANDOMo n 09-02-2020 mALB <1.3 Normal <=30.0 [facility] Comment on above: Performed By: #### M CRR #### [facility] [address] [phone] Martha Naye MALB CR RATIO 10.7 mg/g Normal 0.0-29.9 [facility] Comment on above: Performed By: #### M CRR #### [facility] [address], [place] [address] Martha Naye MALB CR RATIO RANGE SEE BELOW Normal [facility] Comment on above: Result Comment: NO M ICROALBUMINURIA 0-29 MG/G CLINICAL MICROALBUMINURIA 30-300 MG/G MACROALBUMINURIA >300 MG/G Performed By: #### M CRR #### [facility] [address] [id number] Marthajosué Majoren URINE CREAT 121.61 mg/dL Normal 20.00-300.00 [facility] Comment on above: Performed By: #### M CRR #### [facility] [address] [phone] Martha Naye PROF 14(COMP METB)on 021 Albumin [Mass/Vol] 4.2 g/dL Normal 3.5-5.0 [facility] Comment on above: Performed By: #### T SH, CMP, LIPID #### [facility] [address] [place], [place] [phone] Martha Naye Albumin/Globulin [Mass ratio] 1.2 {ratio} Normal [facility] Comment on above: Performed By: #### T SH, CMP, LIPID #### [facility] [address] [place], [place] [phone] Martha Naye ALP [Catalytic activity/Vol] 87 U/L Normal 38-126 [facility] Comment on above: Performed By: #### T SH, CMP, LIPID #### [facility] [address] [place], [place] [phone] Martha Naye ALT [Catalytic activity/Vol] 51 U/L Normal 21-72 [facility] Comment on above: Performed By: #### T SH, CMP, LIPID #### [facility] [address] [place], [place] [phone] Martha Naye Anion gap [Moles/Vol] 15.9 mmol/L Normal [facility] Comment on above: Performed By: #### T SH, CMP, LIPID #### [facility] [address] [place], [place] [phone] Martha Naye AST [Catalytic activity/Vol] 31 U/L Normal 17-59 [facility] Comment on above: Performed By: #### T SH, CMP, LIPID #### [facility] [address] [address] Martha Naye Bilirubin [Mass/Vol] 1.3 mg/dL Normal 0.2-1.3 [facility] Comment on above: Performed By: #### T SH, CMP, LIPID #### [facility] [address] [place] [address] Martha Naye Calcium [Mass/Vol] 8.5 mg/dL Normal 8.4-10.2 [facility] Comment on above: Performed By: #### T GEORGI CMP, LIPID #### [facility] [address] [place] [address] Martha Naye Chloride [Moles/Vol] 104 mmol/L Normal 98-107 [facility] Comment on above: Performed By: #### T GEORGI, CMP, LIPID #### [facility] [address] [place] [address] Martha Naye CO2 [Moles/Vol] 25.2 mmol/L Normal 22.0-30.0 [facility] Comment on above: Performed By: #### T GEORGI CMP, LIPID #### [facility] [address] [place] [address] Martha Naye Creatinine [Mass/Vol] 1.02 mg/dL Normal 0.66-1.25 [facility] Comment on above: Performed By: #### T SH, CMP, LIPID #### [facility] [address] [place] [address] Martha Naye EGFR-AF ZAMBIAN >60 Normal >=60 [facility] Comment on above: Performed By: #### T SH, CMP, LIPID #### [facility] [address] [place] [address] Martha Naye EGFR-NON AF ZAMBIAN >60 Normal >=60 [facility] Comment on above: Performed By: #### T SH, CMP, LIPID #### [facility] [address] [place] [address] Martha Naye Globulin (S) [Mass/Vol] 3.6 g/dL Normal [facility] Comment on above: Performed By: #### T GEORGI CMP, LIPID #### [facility] [address] [address] Martha Naye Glucose [Mass/Vol] 107 mg/dL Critically high 74-106 [facility] Comment on above: Performed By: #### T GEORGI CMP, LIPID #### [facility] [address] [address] Martha Naye Potassium [Moles/Vol] 4.1 mmol/L Normal 3.4-5.0 [facility] Comment on above: Performed By: #### T GEORGI CMP, LIPID #### [facility] [address] [place] [address] Martha Naye Protein [Mass/Vol] 7.8 g/dL Normal 6.1-8.2 [facility] Comment on above: Performed By: #### T GEORGI CMP, LIPID #### [facility] [address] [place] [address] Martha Naye Sodium [Moles/Vol] 141 mmol/L Normal 137-145 [facility] Comment on above: Performed By: #### T GEORGI CMP, LIPID #### [facility] [address] [place] [address] Martha Naye Urea nitrogen [Mass/Vol] 17.0 mg/dL Normal 9.0-20.0 [facility] Comment on above: Performed By: #### T EGORGI CMP, LIPID #### [facility] [address] [place] [address] Martha Naye Urea nitrogen/Creatinine [Mass ratio] 16.7 mg/mg Normal [facility] Comment on above: Performed By: #### T GEORGI CMP, LIPID #### [facility] [address] [place] [address] Martha Naye TSHon 09-02-2020 TSH 1.860 uIU/mL Normal 0.470-4.680 [facility] Comment on above: Performed By: #### T GEORGI CMP, LIPID #### [facility] [address], [place] [address] Martha Yancey TSH RANGE SEE BELOW Normal [facility] Comment on above: Result Comment: <0.3 4 UIU/ml HYPERTHYROID 0.34-5.60 UIU/ml EUTHYROID >5.60 UIU/ml HYPOTHYROID Performed By: #### T SH, CMP, LIPID #### [facility] [address], [place] [address] Martha Yancey MAGR Intraoperative Recordon 06-16-2019 MAGR Intraoperative Record MAGR Intra-Op Record Summary Primary Physician: Finalized Date/Time: 06/16/19 12:25:52 Pt. Name: RACHEL ACKERMAN/Sex: 1950 MALE Med Rec #: [id number] Physician: Theodore Escamilla DO Financial #: [id number] Pt. Type: I Room/Bed: [facility] Admit/Disch: 06/01/19 06:00:00 - 06/03/19 15:06:00 [...] Klaehn, Margaret RN Role Performed Anesthesiologist of Sports Book Writer Sports Book Writer Record Time In 06/01/19 07:22:00 06/01/19 07:22:00 [...] Yes imaging displayed? Last Modified By: Anila Victoria RN 06/01/19 07:44:55 Patient Positioning MAGR Pre-Care [...] MHRSCOTT Correct Documentation change anesthesia role Normal [facility] Coding Summaryon 06-04-2019 Coding Summary CODING DATE: 06/04/2019 [facility] STATUS: Home PAYOR: Medicare Grouper: 470 [place] K[employer] JOINT REPLACEMENT OR REATTACHMENT OF LOWER EXTREMITY W/O ASSISTED Low Trim 0 High Trim 999 ADMIT DX: M17.11 Unilateral primary osteoarthritis, right knee REASON FOR VISIT DX: FINAL DX: PRINCIPAL: M17.11 Y Unilateral primary osteoarthritis, right knee SECONDARY: G47.30 Y Sleep apnea, unspecified J44.9 Y Chronic obstructive pulmonary disease, unspecified PROCEDURES DOCTOR NAME DATE Replacement of Right Knee Joint Theodore Escamilla And 06/01/2019 with Synthetic Substitute, Cemented, Open Approach NOTE: The code number assigned matches the documented diagnosis and / or procedure in the patient's chart. However, the narrative phrase printed from the coding software may appear abbreviated, or result in slightly different terminology. Coded By: Daisy Esquivel Date Saved: 06/04/2019 10:36 am [facility] Consent Formson 06-04-2019 Consent Forms [id number]#1.[address] [place] [address] History and Physicalon 06-04 History and Physical [id number]#1.[address] [place] [address] Medicare Messageon 0 Medicare Message [id number] 42 [id number]#1.[address] [place] [address] Medication Managementon 05-17 Medication Management [id number]#1.[address] [place] [address] Outside Recordson 06-04-2019 Outside Records [id number]#1.[address] [place] [address] Provider Orderson 06-04-2019 Provider Orders [id number]#1.[address] [place] [address] Telemetry Stripson 0 Telemetry Strips [id number]#1.[address] [place] [address] .Auto Diff 1on 06-03-2019 Auto [place] % 10 % [place] 04-26 [facility] Comment on above: Performed By: #### 7 [id number], [id number], [id number] ####[facility] (DEFAULT)[address] [place] [address] Baso Abs# 0.0 x10 Normal 0.0-0.2 [facility] Comment on above: Performed By: #### 7 [id number], [id number], [id number] ####[facility] (DEFAULT)[address] [place] [address] Basophils/100 WBC (Bld) 0.3 % Normal 0.2-2.0 [facility] Comment on above: Performed By: #### 7 [id number], [id number], [id number] ####[facility] (DEFAULT)[address] [place] [address] Eos Abs# 0.1 x10 Normal 0.0-0.4 [facility] Comment on above: Performed By: #### 7 937505, [id number], [id number] ####[facility] (DEFAULT)[address] [place] [address] Eosinophils/100 WBC (Bld) 0.5 % Low 0.9-4.0 [facility] Comment on above: Performed By: #### 7 [id number], [id number], [id number] ####[facility] (DEFAULT)[address] [place] [address] Lymphocytes (Bld) [#/Vol] 2.1 x10 Normal 1.3-2.9 [facility] Comment on above: Performed By: #### 7 [id number], [id number], [id number] ####[facility] (DEFAULT)[address] [place] [address] Lymphocytes/100 WBC (Bld) 19 % Normal 14-48 [facility] Comment on above: Performed By: #### 7 [id number], [id number], [id number] ####[facility] (DEFAULT)[address] [place] [address] Jasper Abs# 1.1 x10 High 0.0-0.8 [facility] Comment on above: Performed By: #### 7 080832, [id number], [id number] ####[facility] (DEFAULT)[address] [place] [address] Neut Abs# 7.6 x10 Normal 1.5-9.2 [facility] Comment on above: Performed By: #### 7 054555, [id number], [id number] ####[facility] (DEFAULT)[address] [place] [address] Neutrophils/100 WBC (Bld) 70 % Normal 44-88 [facility] Comment on above: Performed By: #### 7 953329, [id number], [id number] ####[facility] (DEFAULT)[address] [place] [address] CBC w/ Auto Diffon 0 Erythrocyte distribution width (RBC) [Ratio] 14.4 % Normal 11.5-15.0 [facility] Comment on above: Performed By: #### 7 [id number], [id number], [id number] ####[facility] (DEFAULT)[address] [place] [address] Hematocrit (Bld) [Volume fraction] 36.6 % Normal 34.8-51.9 [facility] Comment on above: Performed By: #### 7 831227, [id number], [id number] ####[facility] (DEFAULT)[address] [place] [address] Hemoglobin (Bld) [Mass/Vol] 12.2 g/dL Normal 11.8-17.7 [facility] Comment on above: Performed By: #### 7 888251, [id number], [id number] ####[facility] (DEFAULT)[address] [place] [address] Man Diff? Auto Normal [facility] Comment on above: Performed By: #### 7 [id number], [id number], [id number] ####[facility] (DEFAULT)[address] [place] [address] MCH (RBC) [Entitic mass] 28 pg Normal 24-34 [facility] Comment on above: Performed By: #### 7 083363, [id number], [id number] ####[facility] (DEFAULT)[address] [place] [address] MCHC (RBC) [Mass/Vol] 33 g/dL Normal 26-37 [facility] Comment on above: Performed By: #### 7 164083, [id number], [id number] ####[facility] (DEFAULT)[address] [place] [address] MCV (RBC) [Entitic vol] 85 fL Normal 81-100 [facility] Comment on above: Performed By: #### 7 549698, [id number], [id number] ####[facility] (DEFAULT)[address] [place] [address] Platelet mean volume (Bld) [Entitic vol] 8.9 fL Normal 6.3-10.2 [facility] Comment on above: Performed By: #### 7 424255, [id number], [id number] ####[facility] (DEFAULT)[address] [place] [address] Platelets (Bld) [#/Vol] 144 x10 Normal 138-427 [facility] Comment on above: Performed By: #### 7 956311, [id number], [id number] ####[facility] (DEFAULT)[address] [place] [address] RBC (Bld) [#/Vol] 4.32 x10 Normal 3.70-5.30 [facility] Comment on above: Performed By: #### 7 144230, [id number], [id number] ####[facility] (DEFAULT)[address] [place] [address] WBC (Bld) [#/Vol] 10.9 x10 [facility] Comment on above: Performed By: #### 7 367444, [id number], [id number] ####[facility] (DEFAULT)[address] [place] [address] Education Noteon 06-03-2019 Education Note Education Materials [...] with your health care provider about the nzyn-cdh-cljzxfr and prescription medicines that you are taking. [...] 04/01/2006 Document Revised: 02/24/2018 Document Reviewed: 02/24/2018 [employer] Interactive Patient Education ? 2019 [employer] Normal [facility] Electrolyte Panel Standardon 06-03-2019 Anion gap [Moles/Vol] 13.0 mmol/L Normal 5.0-19.0 [facility] Comment on above: Performed By: #### 7 [id number], [id number], [id number] ####[facility] (DEFAULT)[address] [place] [address] 89965 Chloride [Moles/Vol] 106 mmol/L Normal 101-111 [facility] Comment on above: Performed By: #### 7 [id number], [id number], [id number] ####[facility] (DEFAULT)[address] [place] [address] 46887 CO2 [Moles/Vol] 24 mmol/L Normal 21-32 [facility] Comment on above: Performed By: #### 7 [id number], [id number], [id number] ####[facility] (DEFAULT)[address] [place] [address] 82813 Potassium [Moles/Vol] 4.2 mmol/L Normal 3.6-5.1 [facility] Comment on above: Performed By: #### 7 [id number], [id number], [id number] ####[facility] (DEFAULT)[address] [place] [address] 69571 Sodium [Moles/Vol] 139.0 mmol/L Normal 136.0-144.[address] [facility] Comment on above: Performed By: #### 7 [id number], [id number], [id number] ####[facility] (DEFAULT)[address] [place] [address] Inpatient Patient Summaryon 06-03-2019 Inpatient Patient Summary [address] [address] Patient Discharge Instructions Name: RACHEL ACKERMAN : 1950 Patient Address: [address] [place] [address] Primary Care Provider: Name: Patrica Cruz DNP After you are discharged if you find you have any questions, please, call [phone] ext [phone] to speak to a nurse. Discharge Diagnosis: [...] problems; contact the [facility] 05/11 Crisis Hotline -text 4hope to [phone]. If you received any narcotics, sedation, or [...] business decisions or sign any legal documents [facility] would like to thank you for allowing us to assist you with your healthcare needs. The following includes patient education materials and information regarding your injury/illness. RACHEL ACKERMAN has been given the following list of follow-up instructions, prescriptions, and patient education materials: Follow-up Instructions With: Address: When: Theodore Escamilla [address] [place] [address], [address] [place] [address] Business (2) 06/11/2019 9:00 AM With: Address: When: Patrica Cruz [address] [place] [address] Business (1) Medications During the course of your visit, your medication list was updated with the most current information. The details of those changes are reflected below: Medications to Continue That Have Not Changed Other Medications acetaminophen (acetaminophen 500 mg oral tablet) 1 tab(s) Oral Every 6 hours as needed as needed for pain. acetaminophen-oxycodon e (Percocet 5/325 oral tablet) 1 tab(s) Oral [...] hours as needed as needed for pain. acetaminophen-oxycodon e (Percocet 5/325 oral tablet) 1 tab(s) Oral [...] with your health care provider about the otgf-jnk-qdqeegl and prescription medicines that you are taking. [...] 04/01/2006 Document Revised: 02/24/2018 Document Reviewed: 02/24/2018 [employer] Interactive Patient Education ? 2019 [employer] Viruses or Bacteria What?s got you [...] for Disease Control and Prevention December 2013 [facility] MAGR Postoperative Recordon 06-03-2019 MAGR Postoperative Record MAGR Phase II Record Summary Primary Physician: Theodore Escamilla DO Finalized Date/Time: 06/03/19 12:11:36 Pt. Name: MIKHAILTREMAINERACHEL./Sex: 1950 MALE Med Rec #: [id number] Physician: Theodore Escamilla DO Financial #: [id number] Pt. Type: I Room/Bed: [facility] Admit/Disch: 06/01/19 06:00:00 - Institution: Phase [...] Signed By: Claudine Beck RN 06/03/19 12:11 [facility] Nutrition Noteon 06-03-2019 Nutrition Note Pt eating well, avg 100% of meals and supplements. No N/V. Labs reviewed. BM noted 06/02. No new rec'd at this time. Will continue to monitor. [facility] Pharmacy Noteon 06-03-2019 Pharmacy Note Delivered and collected hard copy at 12:00 PM. One prescription was paid for in marr [Electronically Signed on: 06/03/2019 16:06 EST] Lavelle Anusha [Verified on: 06/03/2019 16:06 EST] Lavelle Anusha Delivered at 2:16 PM correction [Electronically Signed on: 06/03/2019 16:07 EST] Lavelle Anusha [facility] Pharmacy Note Teach back on new medication completed. 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/Accelerator Operator was engaged in counseling session and verbalized understanding Patient/containers sales representative found counseling beneficial Meds to Beds: Accepted and will make the notation in the patients record [Electronically Signed on: 06/03/2019 13:33 EST] Flavia Small [Verified on: 06/03/2019 13:33 EST] Flavia Small [facility] Pharmacy Note I have reviewed this [...] Scheduled narcotic: none prn narcotic pain medication(s): Mimjasthn3ar - Moderate pain, 10mg - Severe pain prn non-narcotic pain medication(s): Acetaminophen- Mild pain, Vistaril and ketorolac Action: OARRS and risk factors reviewed [Electronically Signed on: 06/03/2019 08:37 EST] Sydney Oneil Tania [Verified on: 06/03/2019 08:37 EST] Sydney Tania Riggs [facility] Progress Note-Physicianon Progress Note-Physician DATE OF ORTHOPEDIC PROGRESS NOTE: 06/03/2019 TIME: 11.55 am The patient is in [...] questions or concerns, he will contact. Dr. sEcamilla. CONDITION ON DISCHARGE: Stable. Van Irby DO JOB #: [id number] [Electronically Signed on: 06/04/2019 08:18 EST] VAN IRBY DO [Verified on: 06/04/2019 08:18 EST] VAN IRBY DO [Transcribed on: 06/03/2019 12:39 EST] [facility] Progress Note-Physician DATE OF ORTHOPEDIC POSTOPERATIVE PROGRESS NOTE: 06/02/2019 TIME: 12:59 pm The patient [...] PROGNOSIS: Good. Van Irby DO JOB #: [id number] [Electronically Signed on: 06/03/2019 11:46 EST] VAN IRBY DO [Verified on: 06/03/2019 11:46 EST] VAN IRBY DO [Transcribed on: 06/03/2019 06:10 EST] [facility] Normal [facility] .Auto Diff 1on 06-02-2019 Auto Jasper % 9 % Normal 12 [facility] Comment on above: Performed By: #### 7 [id number], [id number], [id number] ####[facility] (DEFAULT)[address] [place] [address] Baso Abs# 0.0 x10 Normal 0.0-0.2 [facility] Comment on above: Performed By: #### 7 [id number], [id number], [id number] ####[facility] (DEFAULT)[address] [place] [address] 97298 Basophils/100 WBC (Bld) 0.1 % Low 0.2-2.0 [facility] Comment on above: Performed By: #### 7 [id number], [id number], [id number] ####[facility] (DEFAULT)[address] [place] [address] Eos Abs# 0.0 x10 Normal 0.0-0.4 [facility] Comment on above: Performed By: #### 7 [id number], [id number], [id number] ####[facility] (DEFAULT)[address] [place] [address] 63468 Eosinophils/100 WBC (Bld) 0.2 % Low 0.9-4.0 [facility] Comment on above: Performed By: #### 7 [id number], [id number], [id number] ####[facility] (DEFAULT)[address] [place] [address] 13050 Lymphocytes (Bld) [#/Vol] 2.0 x10 Normal 1.3-2.9 [facility] Comment on above: Performed By: #### 7 [id number], [id number], [id number] ####[facility] (DEFAULT)[address] [place] [address] 16421 Lymphocytes/100 WBC (Bld) 19 % Normal 14-48 [facility] Comment on above: Performed By: #### 7 [id number], [id number], [id number] ####[facility] (DEFAULT)[address] [place] [address] Jasper Abs# 1.0 x10 High 0.0-0.8 [facility] Comment on above: Performed By: #### 7 [id number], [id number], [id number] ####[facility] (DEFAULT)[address] [place] [address] 54863 Neut Abs# 7.8 x10 Normal 1.5-9.2 [facility] Comment on above: Performed By: #### 7 [id number], [id number], [id number] ####[facility] (DEFAULT)[address] [place] [address] Neutrophils/100 WBC (Bld) 72 % Normal 44-88 [facility] Comment on above: Performed By: #### 7 934181, [id number], [id number] ####[facility] (DEFAULT)[address] [place] [address] CBC w/ Auto Diffon 0 Erythrocyte distribution width (RBC) [Ratio] 14.1 % Normal 11.5-15.0 [facility] Comment on above: Performed By: #### 7 305206, [id number], [id number] ####[facility] (DEFAULT)[address] [place] [address] Hematocrit (Bld) [Volume fraction] 33.5 % Low 34.8-51.9 [facility] Comment on above: Performed By: #### 7 [id number], [id number], [id number] ####[facility] (DEFAULT)[address] [place] [address] Hemoglobin (Bld) [Mass/Vol] 11.4 g/dL Low 11.8-17.7 [facility] Comment on above: Performed By: #### 7 997905, [id number], [id number] ####[facility] (DEFAULT)[address] [place] [address] Man Diff? Auto Normal [facility] Comment on above: Performed By: #### 7 [id number], [id number], [id number] ####[facility] (DEFAULT)[address] [place] [address] MCH (RBC) [Entitic mass] 29 pg Normal 24-34 [facility] Comment on above: Performed By: #### 7 [id number], [id number], [id number] ####[facility] (DEFAULT)[address] [place] [address]6872 MCHC (RBC) [Mass/Vol] 34 g/dL Normal 26-37 [facility] Comment on above: Performed By: #### 7 [id number], [id number], [id number] ####[facility] (DEFAULT)[address] [place] [address] 98270 MCV (RBC) [Entitic vol] 84 fL Normal 81-100 [facility] Comment on above: Performed By: #### 7 070695, [id number], [id number] ####[facility] (DEFAULT)[address] [place] [address] 08143 Platelet mean volume (Bld) [Entitic vol] 8.9 fL Normal 6.3-10.2 [facility] Comment on above: Performed By: #### 7 277276, [id number], [id number] ####[facility] (DEFAULT)[address] [place] [address]20 Platelets (Bld) [#/Vol] 133 x10 Low 138-427 [facility] Comment on above: Performed By: #### 7 784156, [id number], [id number] ####[facility] (DEFAULT)[address] [place] [address] 66444 RBC (Bld) [#/Vol] 3.99 x10 Normal 3.70-5.30 [facility] Comment on above: Performed By: #### 7 447559, [id number], [id number] ####[facility] (DEFAULT)[address] [place] [address] 83373 WBC (Bld) [#/Vol] 10.9 x10 [facility] Comment on above: Performed By: #### 7 [id number], [id number], [id number] ####[facility] (DEFAULT)[address] [place] [address] 22514 Electrolyte Panel Standardon 06-02-2019 Anion gap [Moles/Vol] 13.0 mmol/L Normal 5.0-19.0 [facility] Comment on above: Performed By: #### 7 311698, [id number], [id number] ####[facility] (DEFAULT)[address] [place] [address] 29041 Chloride [Moles/Vol] 103 mmol/L Normal 101-111 [facility] Comment on above: Performed By: #### 7 612727, [id number], [id number] ####[facility] (DEFAULT)[address] [place] [address] CO2 [Moles/Vol] 23 mmol/L Normal 21-32 [facility] Comment on above: Performed By: #### 7 420180, [id number], [id number] ####[facility] (DEFAULT)[address] [place] [address] 38016 Potassium [Moles/Vol] 3.9 mmol/L Normal 3.6-5.1 [facility] Comment on above: Performed By: #### 7 694003, 27534654, [id number] ####[facility] (DEFAULT)[address] [place] [address] 84614 Sodium [Moles/Vol] 135.0 mmol/L Low 136.0-144.[address] [facility] Comment on above: Performed By: #### 7 155618, [id number], [id number] ####[facility] (DEFAULT)[address] [place] [address]484 Progress Note - Nurseon 05-16 Progress Note - Nurse Dr. Irby vs. et changed right knee drsg.. Incision well approximated with rossana in place. Bruising et edema surround incision. Mod. amt.of dried blood noted on old drsg., no active bleeding. Primapore, ABD. followed by elastic wrap applied to surgical site. Pt. jennifer. well. [Electronically Signed on: 06/02/2019 16:39 EST] Kinza London RN [Verified on: 06/02/2019 16:39 EST] Kinza London RN Normal [facility] Anesthesia Noteon 06-01-2019 Anesthesia Note Patient: RACHEL [...] history): All Problems Alcoholism / SNOMED CT 56770401 / Confirmed Anxiety / SNOMED CT 23858025 / Confirmed Asthma / SNOMED CT 134317160 / Confirmed Depression / SNOMED CT 28649751 / Confirmed Former smoker / SNOMED CT 88966434 / Confirmed Hyperlipidemia / SNOMED CT 18346400 / Confirmed Skin cancer / SNOMED CT 9193747523 / Confirmed Sleep apnea / SNOMED CT 75497301 / Confirmed Histories Family History: Heart attack Father Mother Hypertension Mother Procedure history: Tonsillectomy (253357293). Arthroscopy (97881674). Comments: 05/27/2019 14:07 Ssakia Lim RN Right knee 05/27/2019 12:37 EST - Halblaub, Sidsel RN meniscectomy Colonoscopy (034610498). Palate operation (968188372). Comments: 05/27/2019 14:08 Saskia Lim RN Removal of for sleep apnea Maxillary sinus (74703649). Extraction of cataract by phacofragmentation with aspiration (4072904412). Comments: 05/27/2019 14:19 Saskia Lim RN bilateral [...] 1/2 pk/ day smoker - 05/27/2019 14:17 Saskia Phipps RN Electronic Cigarette/Vaping 05/27/2019 Electronic Cigarette Use: Never . Physical Examination VS/Measurements Measurements from flowsheet : Measurements 06/01/2019 6:25 EST Height 175.260 cm Height/Length Dosing 175.260 cm Weight 109.500 kg Weight Dosing 109.500 kg Body Mass Index 35.650 kg/m2 , Vital Signs (last 24 hrs) Last Charted Heart Rate Peripheral 67 bpm (JUN 01 07:33) Resp Rate 16 br/min (JUN 01 07:33) SBP 128 mmHg (JUN 01 07:33) DBP 80 mmHg (JUN 01 07:33) SpO2 95 % (JUN 01 07:33) Weight 109.50 kg (JUN 01 06:25) Height 175.26 cm (JUN 01:25) Review / Management Laboratory Results Plan [place] [employer]esthesiologists#(ASA ) physical status classification: Class III. Anesthetic Preoperative Plan Anesthesia: General. , Regional adductor canal block. Anesthetic plan, risks, benefits, and alternatives discussed with the patient and/or family. Patient verbalized understanding. Anesthetic technique: discussed SAB vs GA. pt prefers GA. [Electronically Signed on: 06/01/2019 09:29 EST] Jonathon Ely MD [Verified on: 06/01/2019 09:29 EST] Jonathon Ely MD [facility] History and Physicalon 06-01 History and Physical [id number]. [id number] [facility] MAGR Intraoperative Recordon 06-01-2019 MAGR Intraoperative Record MAGR Intra-Op Record Summary Primary Physician: Theodore Escamilla DO Finalized Date/Time: 06/01/19 09:57:13 Pt. Name: RACHEL ACKERMAN/Sex: 1950 MALE Med Rec #: [id number] Physician: Theodore Escamilla DO Financial #: [id number] Pt. Type: I Room/Bed: [facility] Admit/Disch: 06/01/19 06:00:00 - Institution: Case [...] Role Performed Surgeon - Primary Anesthesiologist of Sports Book Writer Record Time In 06/01/19 07:36:00 06/01/19 07:36:00 06/01/19 07:36:00 Time Out 06/01/19 09:46:00 06/01/19 09:46:00 06/01/19 09:46:00 Procedure Arthroplasty Knee Arthroplasty Knee Arthroplasty Knee Total(Right) Total(Right) Total(Right) Last Modified By: Sergio HALL, Sandee Hill RN, Sandee Hill RN, Sandee Vides 06/01/19 09:55:49 06/01/19 09:55:49 06/01/19 09:55:49 Entry 4 Entry 5 Entry 6 Case Attendee Patrica Raymond RN, Stephanie RN Wilkins CST, Anya Role Performed Accelerator Technician Scrub Personnel Scrub Personnel Time In 06/01/19 [...] Outcome Met (O.130) Yes Last Modified By: Sandee Hill RN 06/01/19 08:28:27 Post-Care Text: E.20 [...] Huddleston, James By: Remi Mejias DO Size 6.5MM DIAMETER; 35MM 27MM LENGTH 48MM LENGTH LENGTH Java Development Team Lead BRITTANY BRITTANY BRITTANY Catalog # Lot Number [id number] Expiration Date 02/12/29 11/12/28 Serial Number Device Identifier Human Readable RAJNI Machine Readable RAJNI MR Class Implant Usage Data Site Knee R Knee R Knee R Quantity 2 1 1 Reason for Explant Reason Not Retained Explant Disposition Tour Production Supervisor Sterility External Indicator Result Internal Indicator Results Outcome Met (O.30) Yes Yes Yes Last Modified By: Sergio HALL, Sandee Hill RN, Sandee Sutherland RN 06/01/19 08:32:35 06/01/19 08:32:35 06/01/19 08:32:35 Entry 4 Entry 5 Entry 6 Procedure Arthroplasty Knee Arthroplasty Knee Arthroplasty Knee Total(Right) Total(Right) Total(Right) Implant Action Implant Implant Implant Description BRITTANY FEMUR CEMENTED BRITTANY ARTICULAR BRITTANY ALL POLY PATELLA CRUCIATE RETAINING SURFACE MEDIAL CONGRUENT CEMENTED STANDARD Implant Information Implant/Explant 06/01/19 08:51:00 06/01/19 08:52:00 06/01/19 08:54:00 Date/Time Implanted/Explanted Theodore Escamilla James Huddleston, James By: Remi Wrightw DO Size RIGHT SIZE 9 RIGHT 10MM HEIGHT USE 35MM DIAMETER; 9.0MM WITH TIBIA SIZES E-F/CR THICKNESS FEMUR SIZES 8- Java Development Team Lead BRITTANY BRITTANY BRITTANY Catalog # Lot Number [id number] Expiration Date 05/15/27 12/14/23 02/12/27 Serial Number Device Identifier Human Readable RAJNI Machine Readable RAJNI MR Class Implant Usage Data Site Knee R Knee R Knee R Quantity 1 1 1 Reason for Explant Reason Not Retained Explant Disposition Tour Production Supervisor Sterility External Indicator Result Internal Indicator Results Outcome Met (O.30) Yes Yes Yes Last Modified By: Sergio HALL, Sandee Hill RN, Sandee Sutherland RN 06/01/19 08:57:03 06/01/19 08:57:03 06/01/19 08:57:03 Entry [...] Size 5 DEGREE STEMMED RIGHT SIZE E Java Development Team Lead BRITTANY BIOMENT BIOMENT Catalog # Lot Number [id number] Expiration Date 02/12/29 06/13/23 03/14/23 Serial Number Device Identifier Human Readable RAJNI Machine Readable RAJNI MR Class Implant Usage Data Site Knee R Knee R Knee R Quantity 1 1 1 Reason for Explant Reason Not Retained Explant Disposition Tour Production Supervisor Sterility External Indicator Result Internal Indicator Results Outcome Met (O.30) Yes Yes Yes Last Modified By: Sergio HALL, Sandee Hill RN, Sandee Sutherland RN 06/01/19 08:57:03 06/01/19 09:01:34 06/01/19 09:01:34 Post-Care [...] Signed By: Sandee Hill RN 06/01/19 09:57 [facility] MAGR PACU Recordon 0 MAGR PACU Record MAGR PACU Record Summary Primary Physician: Theodore Escamilla DO Finalized Date/Time: 06/01/19 10:34:41 Pt. Name: RACHEL ACKERMAN/Sex: 1950 MALE Med Rec #: [id number] Physician: Theodore Escamilla DO Financial #: [id number] Pt. Type: I Room/Bed: Pending sale to [facility]/1 Admit/Disch: 06/01/19 06:00:00 - Institution: PACU Case Times MAGR Entry 1 In PACU I 06/01/19 09:48:00 Discharge from PACU 06/01/19 10:40:00 I Last Modified By: Rani Howard RN 06/01/19 10:34:33 Finalized By: Rani Howard RN Document Signatures Signed By: Rani Howard RN 06/01/19 10:34 [facility] MAGR Preoperative Recordon 0 06-01-2019 MAGR Preoperative Record MAGR Pre-Op Record Summary Primary Physician: Theodore Escamilla DO Finalized Date/Time: 06/01/19 07:51:20 Pt. Name: RACHEL ACKERMAN/Sex: 1950 MALE Med Rec #: [id number] Physician: Theodore Escamilla DO Financial #: [id number] Pt. Type: I Room/Bed: / Admit/Disch: 06/01/19 [...] Signed By: Anila Victoria RN 06/01/19 07:51 [facility] Nutrition Noteon 06-01-2019 Nutrition Note Chart [...] for any changes; follow, assist prn ts [facility] Operative Report - Surgeon/P aileen 06-01-2019 Operative Report - Surgeon/Physician Preoperative diagnosis: Osteoarthritis is degenerative joint disease right knee Postoperative diagnosis: Same Procedure: Right total knee arthroplasty Femur size 9 Tibia size E Patella size35 Tibial tray size 10mm medial constrained Surgeon: Reagan Escamilla D.O. Anesthesia: General Indications for surgery: Radiographic and clinical findings consistent with osteoarthritis/degener ative joint disease with symptoms affecting daily living inhibiting daily activities and failure of conservative treatment Estimated blood loss: 500 Complications: There were no complications Findings: Thinning and absence of articular cartilage findings consistent with advanced osteoarthritis/degener ative joint disease Procedure summary: Patient was brought [...] on: 06/01/2019 14:01 EST] Theodore Escamilla DO [facility] Patient Handouton 06-01-2019 Patient Handout Orthopedics [...] with your health care provider about the smvz-osc-wisxygn and prescription medicines that you are taking. [...] 04/01/2006 Document Revised: 02/24/2018 Document Reviewed: 02/24/2018 [employer] Interactive Patient Education ? 2019 [employer] [facility] XR Knee One or Two Views [...] Rosas MD 06/01/19 12:57 p Technologist: NIKITA [facility] Progress Note - Nurseon 05-16 Progress Note - Nurse Spoke with pt and informed him to be here at 6am and NPO after MN. He verbalizes understanding. [Electronically Signed on: 05/29/2019 09:26 EST] Claudine Beck RN [Verified on: 05/29/2019 09:26 EST] Claudine Beck RN [facility] Vital Signs Date Time Vital Sign Value Performing Clinician Facility 04-16-2023 07:15-0500 Body height 177.8 cm Patrica Cruz Other [facility] Other 04-16-2023 07:15-0500 Body mass index (BMI) [Ratio] 35.28 kg/m2 Patrica Anthony Other [facility] Other 04-16-2023 07:15-0500 Body weight 111.54 kg Patrica Anthony Other [facility] Other 04-16-2023 07:15-0500 Diastolic blood pressure 70 mm[Hg] Patrica Cruz Other [facility] Other 04-16-2023 07:15-0500 Respiratory rate 18 /min Patirca Anthony Other [facility] Other 04-16-2023 07:15-0500 SaO2% (BldA) [Mass fraction] 97 % Patrica Anthony Other [facility] Other 04-16-2023 07:15-0500 Systolic blood pressure 138 mm[Hg] Patrica Anthony Other [facility] Other 04-01-2023 10:00-0500 Body height 177.8 cm Patrica Cruz Other [facility] Other 04-01-2023 10:00-0500 Body mass index (BMI) [Ratio] 35.15 kg/m2 Patrica Anthony Other [facility] Other 04-01-2023 10:00-0500 Body weight 111.13 kg Patrica Cruz Other [facility] Other 04-01-2023 10:00-0500 Diastolic blood pressure 78 mm[Hg] Patrica Cruz Other [facility] Other 04-01-2023 10:00-0500 Respiratory rate 18 /min Patrica Anthony Other [facility] Other 04-01-2023 10:00-0500 SaO2% (BldA) [Mass fraction] 94 % Patrica Anthony Other [facility] Other 04-01-2023 10:00-0500 Systolic blood pressure 140 mm[Hg] Patrica Anthony Other [facility] Other 03-19-2023 09:15-0500 Body height 177.8 cm Patrica Cruz Other [facility] Other 03-19-2023 09:15-0500 Body mass index (BMI) [Ratio] 34.43 kg/m2 Patrica Anthony Other [facility] Other 03-19-2023 09:15-0500 Body temperature 97.5 [degF] Patrica Anthony Other [facility] Other 03-19-2023 09:15-0500 Body weight 108.86 kg Patrica Anthony Other [facility] Other 03-19-2023 09:15-0500 Diastolic blood pressure 78 mm[Hg] Patrica Cruz Other [facility] Other 03-19-2023 09:15-0500 Respiratory rate 18 /min Patrica Cruz Other [facility] Other 03-19-2023 09:15-0500 SaO2% (BldA) [Mass fraction] 97 % Patrica Anthony Other [facility] Other 03-19-2023 09:15-0500 Systolic blood pressure 120 mm[Hg] Patrica Anthony Other [facility] Other 02-20-2023 10:35-0500 Body height 177.8 cm Kesha Clifton MD Work Phone: [facility] 02-20-2023 10:35-0500 Body temperature 97.7 [degF] Kesha Clifton MD Work Phone: [facility] 02-20-2023 10:35-0500 Body weight 114.85 kg Kesha Clifton MD Work Phone: [facility] 02-20-2023 10:35-0500 Diastolic blood pressure 74 mm[Hg] Kesha Clifton MD Work Phone: [facility] 02-20-2023 10:35-0500 Heart rate 65 /min Kesha Clifton MD Work Phone: [facility] 02-20-2023 10:35-0500 Respiratory rate 16 /min Kesha Clifton MD Work Phone: [facility] [facility]-2023 10:35-0500 SaO2% (BldA) [Mass fraction] 96 % Kesha Clifton MD Work Phone: [facility] 02-20-2023 10:35-0500 Systolic blood pressure 130 mm[Hg] Kesha Clifton MD Work Phone: [facility] 11-12-2022 12:16-0400 Blood Pressure Location Elia HUERTA [facility] 11-12-2022 12:16-0400 Diastolic blood pressure 86 mm[Hg] Elia HUERTA [facility] 11-12-2022 12:16-0400 Heart rate 79 /min Elia HUERTA [facility] 11-12-2022 12:16-0400 Respiratory rate 16 /min Elia HUERTA [facility] 11-12-2022 12:16-0400 Systolic blood pressure 142 mm[Hg] Elia HUERTA [facility] 09-27-2022 09:00-0400 Body height 177.8 cm Patrica Cruz Other [employer] [facility] [employer] Other 09-27-2022 09:00-0400 Body mass index (BMI) [Ratio] 36.15 kg/m2 Patrica Cruz Other [employer] Other 09-27-2022 09:00-0400 Body temperature 98.1 [degF] Patrica Cruz Other [employer] Other 09-27-2022 09:00-0400 Body weight 114.31 kg Patrica Cruz Other [employer] Other 09-27-2022 09:00-0400 Diastolic blood pressure 76 mm[Hg] Patrica Cruz Other [facility] Other 09-27-2022 09:00-0400 SaO2% (BldA) [Mass fraction] 97 % Patrica Cruz Other [facility] Other 09-27-2022 09:00-0400 Systolic blood pressure 128 mm[Hg] Patrica Cruz Other [facility] Other 02-26-2022 11:00-0500 Body height 177.8 cm Patrica Cruz Other [facility] Other 02-26-2022 11:00-0500 Body mass index (BMI) [Ratio] 35.88 kg/m2 Patrica Cruz Other [facility] Other 02-26-2022 11:00-0500 Body temperature 96.7 [degF] Patrica Cruz Other [employer] [facility] Other 02-26-2022 11:00-0500 Body weight 113.45 kg Patrica Cruz Other [facility] Other 02-26-2022 11:00-0500 Diastolic blood pressure 70 mm[Hg] Patrica Cruz Other [facility] [facility] Other 02-26-2022 11:00-0500 Respiratory rate 18 /min Patrica Cruz Other [facility] [facility] Other 02-26-2022 11:00-0500 SaO2% (BldA) [Mass fraction] 98 % Patrica Cruz Other [employer] Other 02-26-2022 11:00-0500 Systolic blood pressure 128 mm[Hg] Patrica Cruz Other [employer] Other 09-05-2021 10:54-0400 Blood Pressure Location Will Rivera Jr. [facility] 09-05-2021 10:54-0400 Diastolic blood pressure 82 mm[Hg] Will Rivera Jr. [facility] 09-05-2021 10:54-0400 Heart rate 71 /min Will Miguel Rodrigues. [facility] 09-05-2021 10:54-0400 Respiratory rate 16 /min Will Rivera . [facility] 09-05-2021 10:54-0400 Systolic blood pressure 137 mm[Hg] Will Rivera Jr. [facility] 08-24-2021 11:00-0400 Body height 177.8 cm Patrica Cruz Other [employer] [facility] [employer] Other 08-24-2021 11:00-0400 Body mass index (BMI) [Ratio] 36.21 kg/m2 Patrica Cruz Other [place] [employer] Other 08-24-2021 11:00-0400 Body weight 114.49 kg Patrica Cruz Other [employer] Other 08-24-2021 11:00-0400 Diastolic blood pressure 82 mm[Hg] Patrica Cruz Other [facility] Other 08-24-2021 11:00-0400 Respiratory rate 18 /min Patrica Cruz Other [employer] Other 08-24-2021 11:00-0400 SaO2% (BldA) [Mass fraction] 96 % Patrica Cruz Other [employer] [facility] Other 08-24-2021 11:00-0400 Systolic blood pressure 122 mm[Hg] Patrica Cruz Other [employer] Other 02-22-2021 11:00-0500 Body height 177.8 cm Patrica Cruz Other [facility] Other 02-22-2021 11:00-0500 Body mass index (BMI) [Ratio] 36.07 kg/m2 Patrica Cruz Other [facility] Other 02-22-2021 11:00-0500 Body temperature 97.4 [degF] Patrica Cruz Other [employer] Other 02-22-2021 11:00-0500 Body weight 114.04 kg Patrica Cruz Other [employer] [facility] Other 02-22-2021 11:00-0500 Diastolic blood pressure 80 mm[Hg] Patrica Cruz Other [facility] [facility] Other 02-22-2021 11:00-0500 Respiratory rate 18 /min Patrica Cruz Other [facility] [facility] Other 02-22-2021 11:00-0500 SaO2% (BldA) [Mass fraction] 97 % Patrica Cruz Other [facility] Other 02-22-2021 11:00-0500 Systolic blood pressure 130 mm[Hg] Patrica Cruz Other [facility] Other Encounters Encounter Date Encounter Type Care Provider Facility Start: 05-06-2023 ambulatory Elia R DEANNA Reddi ty:[facility] [place] Start: 04-22-2023 ambulatory Elia Cardona HUERTA Facili ty:[facility] Start: 04-18-2023 ambulatory Elia Raineyi ty:[id number] Start: 04-16-2023 End: 04-16-2023 ambulatory Patrica Anthony Other [facility] [facility] Other Start: 04-16-2023 Encounter for other preprocedural examination Patrica Cruz [facility] Start: 04-16-2023 Office outpatient vi sit 25 minutes Patrica Cruz [facility] [place] Start: 04-13-2023 End: 04-13-2023 ambulatory Patrica Cruz Facility:[facility] Start: 04-13-2023 End: 04-13-2023 ambulatory DNP Patrica Kapforrest Work Phone: [facility] Work Phone: Start: 04-13-2023 End: 04-13-2023 Patient encounter procedure DNP Patrica Kapforrest Work Phone: [facility] Work Phone: Start: 04-09-2023 End: 04-09-2023 ambulatory Patrica Cruz Other [facility] Other Start: 04-09-2023 Encounter for other preprocedural examination Patrica Cruz [facility] Start: 04-09-2023 Telephone encounter Patrica Guzman [facility] Start: 04-02-2023 End: 04-02-2023 ambulatory Patrica Cruz Other [facility] Other Start: 04-02-2023 Telephone encounter Patrica Guzman [facility] Start: 04-01-2023 End: 04-01-2023 ambulatory Patrica Cruz Other [facility] Other Start: 04-01-2023 Office outpatient vi sit 25 minutes Patrica Cruz [facility] [place] Start: 03-19-2023 End: 03-19-2023 ambulatory Patrica Cruz Other [facility] Other Start: 03-19-2023 Office outpatient vi sit 25 minutes Patrica Cruz [facility] [place] Start: 03-18-2023 End: 03-18-2023 ambulatory Patrica Cruz Other [facility] Other Start: 03-18-2023 Telephone encounter Patrica Guzman [facility] Start: 03-05-2023 End: 03-05-2023 ambulatory Patrica Cruz Other [facility] Other Start: 03-05-2023 Telephone encounter Patrica Luqueforrest [facility] Start: 03-01-2023 ambulatory Elia Oh ty:ZORAIDA Dumont Start: 02-20-2023 End: 02-20-2023 ambulatory [facility] Facility[facility] Start: 02-20-2023 End: 02-20-2023 ambulatory Kesha Clifton MD Work Phone: Hematology/Oncology Comment on above: Thrombocytopenia (HC C) (Primary Dx); Platelets decreased (HCC) Start: 02-20-2023 End: 02-20-2023 Patient encounter procedure Kesha Clifton MD Work Phone: [facility] Start: 02-11-2023 ambulatory Elia Oh ty:ZORAIDA Palomo Start: 01-28-2023 Telephone encounter Crystal castillo RN Hematology/Oncology Comment on above: Patient Update Start: 01-23-2023 End: 01-23-2023 ambulatory [facility] Facility:[facility] Start: 01-22-2023 Chart abstracting Kesha sierra MD Work Phone: Hematology/Oncology Start: 12-25-2022 End: 12-26-2022 ambulatory Eliamicheal HUERTA Facility:[facility] Start: 12-25-2022 End: 12-25-2022 Patient encounter procedure Elia R HUERTA [facility] Start: 11-12-2022 End: 11-13-2022 ambulatory Eliamicheal HUERTA Facility:[facility] Start: 11-12-2022 End: 11-12-2022 Patient encounter procedure Eliamicheal HUERTA [facility] Start: 11-07-2022 End: 11-07-2022 ambulatory Genaro Sheldon Facility:[facility] Start: 11-07-2022 End: 11-07-2022 ambulatory DNP Patrica Cruz Work Phone: [facility] Work Phone: Start: 11-07-2022 End: 11-07-2022 Patient encounter procedure DNP Patrica Cruz Work Phone: [facility] Work Phone: Start: 10-08-2022 End: 10-08-2022 ambulatory Patrica Cruz Other [facility] Other Start: 10-08-2022 Telephone encounter Patrica Guzman [facility] Start: 09-27-2022 End: 09-27-2022 ambulatory Patrica Cruz Other [facility] Other Start: 09-27-2022 Patient encounter procedure Patrica Cruz [facility] Start: 02-26-2022 End: 02-26-2022 ambulatory Patrica Cruz Other [facility] Other Start: 02-26-2022 Office outpatient vi sit 25 minutes Patrica Cruz [facility] Start: 12-26-2021 End: 12-26-2021 ambulatory Patrica Anthony Other [facility] Other Start: 12-26-2021 Telephone encounter Patrica Guzman [facility] Start: 09-05-2021 End: 09-05-2021 Patient encounter procedure Will Rivera Jr. [facility] Start: 08-24-2021 End: 08-24-2021 ambulatory Patrica Cruz Other [facility] Other Start: 08-24-2021 Patient encounter procedure Patrica Cruz [facility] Start: 02-22-2021 End: 02-22-2021 ambulatory Patrica Cruz Other [facility] Other Start: 02-22-2021 Office outpatient vi sit 25 minutes Patrica Cruz [facility] Start: 09-22-2020 ambulatory PATRICA CRUZ Facility :[facility] Start: 09-02-2020 End: 09-03-2020 ambulatory PATRICA CRUZ Facility:[facility] Start: 08-31-2020 End: 09-01-[address] WILL RIVERA JR Facility:[facility] Start: 06-01-2020 End: 06-02-2020 ambulatory NONE LISTED REQUEST Facility:[facility] Start: 05-09-2020 End: 05-10-[address] NONE LISTED REQUEST Facility: Procedures Date Procedure Procedure Detail Performing Clinician Start: 04-13-2023 Plain chest X-ray DNP Trevor Cruz Work Phone: Start: 08-31-[address] JUAN R Carmichael ISTED REQUEST Comment on above: Performed By: #### P SAD #### [facility] [address] [address] Martha Yancey Start: 02-13-2017 Nasal sinus procedure D matti Rivera Jr. Start: 08-13-2016 Excision of basal ce ll carcinoma Will Miguel Martinez Start: 02-14-2016 Cataract surgery Willjaden Rivera Jr. Start: 04-15-2015 Colonoscopy Will viveros Jr. Start: 06-13-2014 Arthroscopy of knee Eligio jaden Rivera Jr. Start: 04-15-1999 Pharyngeal operation for obstructive sleep apnea and snoring Will Rivera Jr. Tonsillectomy Will alder Plan of Treatment Date Care Activity Detail Author Start: 01-23-2026 Diabetes Screening Diabetes Screenin g [facility] Start: 12-14-2022 Covid-19 Vaccine ( season) Covid-19 Vaccine ( season) [facility] Start: 12-14-2022 Influenza vaccination Influenza Vacc ine (#1) [facility] Start: 04-15-2022 Advance Directive Discussion Advance Directive Discussion [facility] Start: 04-15-2022 Depression Assessment Depression Ass essment [facility] Start: 10-20-2018 Urine microalbumin profile DTa P,Tdap,Td Vaccine (1 - Tdap) [facility] Start: 11-20-2015 Pneumococcal Vaccine : 65+ (1 - PCV) Pneumococcal Vaccine: 65+ (1 - PCV) [facility] Start: 2010 RSV Vaccine (1 - 1-d ose 60+ series) RSV Vaccine (1 - 1-dose 60+ series) [facility] Start: 2000 Shingrix Vaccine (1 of 2) Shingrix V accine (1 of 2) [facility] Start: 11-20-1995 Cologuard (FIT-DNA) Cologuard (FIT-D NA) [facility] Start: 11-20-1995 Colonoscopy Colonoscopy [facility] Start: 11-20-1995 Colorectal Cancer Screening Colorectal Cancer Screening [facility] Start: 11-20-[address] COLONOGRAPHY [facility] Start: 11-20-1995 Diabetes Screening Diabetes Screenin g [facility] Start: 11-20-1995 Fecal Occult Blood Fecal Occult Bloo d [facility] Start: 11-20-1995 SIGMOIDOSCOPY SIGMOIDOSCOPY [facility] Start: 1985 Lipid 1996 panel - S chaka or Plasma Lipid Screening [facility] Start: 1969 Urine microalbumin profile DTa P,Tdap,Td Vaccine (1 - Tdap) [facility] Start: 1968 Hepatitis C Screening Hepatitis C Sc reening [facility] Start: 05-22-1951 Covid-19 Vaccine (#1) Covid-19 Vacci ne (#1) [facility] Start: 1950 Abdominal Aortic Ane urysm Screening Abdominal Aortic Aneurysm Screening [facility] Immunizations Immunization Date Immunization Notes Care Provider Giul[facility] 02-26-2022 influenza, high dose seasonal, preservative-free Patrica Cruz Other [facility] 02-26-2022 influenza virus vaccine, unspecified formulation Crystal Cooley RN [facility] 04-16-2021 COVID-19 Vaccine Pfi zer - Documentation Purposes Only Patrica Cruz Other [facility] Other 03-23-2020 influenza (HD-IIV4) vaccine, age 65+ yr, high dose, quadrivalent, PF (FLUZONE HIGH-DOSE) Crystal Cooley RN [facility] 03-23-2020 influenza, high dose seasonal, preservative-free Patrica Cruz Other [facility] 03-23-2020 pneumococcal polysaccharide vaccine, 23 valent Patrica Cruz Other [facility] 03-09-2019 pneumococcal conjuga te vaccine, 13 valent Patrica Cruz Other [facility] 03-09-2019 influenza, high dose seasonal, preservative-free Patrica Cruz Other [facility] 10-19-2018 tetanus and diphther ia toxoids, adsorbed, preservative free, for adult use (5 Lf of tetanus toxoid and 2 Lf of diphtheria toxoid) Patrica Cruz Other [facility] 04-18-2018 Influenza, injectabl e, Madin Brandon Canine Kidney, preservative free, quadrivalent Crystal Cooley RN [facility] 04-18-2018 influenza, seasonal, injectable Patrica Cruz Other [facility] 04-11-2017 influenza, injectabl e, quadrivalent, contains preservative Crystal Cooley RN [facility] 01-14-2016 influenza, injectabl e, quadrivalent, preservative free Crystal Cooley RN [facility] 01-07-2016 influenza, seasonal, injectable Patrica Cruz Other [facility] 12-14-2013 influenza, injectabl e, madin jonh canine kidney, preservative free Crystal Cooley RN [facility] Payers Date Payer Category Payer Unknown MMO MMO MEDICARE SUPPLEMENT [id number] 2021-Present [phone] [address] [place] [address] Indemnity [id number] 2015 Medicare MEDICARE MEDICAR E A AND B [id number] 2015-Present [phone] [address] [address] [place] [address] Medicare [id number] 1959 Medicare [id number] 1959 Self-pay 1959 Unknown [id number] 1950 Unknown [id number] 1950 Unknown [id number] 1950 Unknown [id number] [id number] 1950 Unknown [id number] [id number] 1950 Unknown [id number] [id number] 1950 Unknown [id number] [id number] 1950 Unknown [id number] [id number] 1950 Unknown [id number] [id number] 1950 Unknown [id number] [id number] Unknown [id number] [id number] Unknown [id number] Unknown [id number] [id number] Unknown [id number] Social History Date Type Detail Facility Start: 09-05-2021 End: 01-23-2023 Tobacco smoking status Ex-smoker (finding) [facility] Other Start: 01-22-2023 End: 01-23-2023 Sex Assigned At Male [facility] [employer] Other Start: 1950 Sex Assigned At Male [facility] History of tobacco use Current smoker [facility] History of tobacco use Cigarette Smoker [facility] History of tobacco use Passive smoker [facility] Start: 01-22-2023 End: 01-23-2023 History of Social function [facility] Start: 1950 Sex Assigned At Not on file [facility] Start: 01-23-2023 Tobacco use and exposure Smokeless tobacco non-user [facility] Start: 01-23-2023 End: 02-20-2023 Alcohol intake Ex-drinker (finding) [facility] National Score (1-100), lower number is lower risk 64 [facility] Functional Status Date Assessment Result Facility 12-25-2022 Functional Status N/A [facility] 11-12-2022 Functional Status N/A [facility] Clinical Notes 02-22-2021 to 04-16-2023 Note Date & Type Note Facility 04-16-2023 Evaluation note Encounter Date Diagnosis Assessment Notes Apr, Controlled type 2 diabetes mellitus without complication, without long-term current use of insulin (ICD-10 - E11.9) Hgba1c in the office now shows type II diabetes. He declines any further medication being added [...] of this and agrees to this plan. Apr, Pre-op evaluation (ICD-10 - Z01.818) Rachel is a 72 year old male who presents today for preoperative clearance for upcoming TURP on 04/18/[address] Huerta. Patient completed EKG and CXR. Has had anesthesia in the past and tolerates it well without issues. No dentures or partials. Saw hematology Dr. Clifton r/t kathryn fang, blood work and liver and spleen us was done. He was cleared from hematology for his upcoming prostate surgery. Recently completed lab work, EKG and CXR. Lab work including CBC, BMP, PT/INR, PTT are stable. EKG: NSR. CXR showed: hyperinflation and mild atelectasis and scarring. He states that he will call after his TURP and obtain PFT order and pulmonary referral. Stop bang score: Wears bipap for JOSE AN[employer]EL. Follows with sleep lab. Feels like he rests good. Revised Cardiac Risk Index for preop risk score: 0 points Class I Risk 3.9% 30-day risk of , [place], or cardiac arrest. DASI (Berger Activity Status Index) score: 58.2 points The higher the score (maximum 58.2), the higher the functional status. 9.89 METs. All of chronic conditions seem to be for the most part stable and well controlled. Patient is a moderately high risk surgical candidate due to chronic conditions; however, since complex, chronic condition are well controlled, patient seems to be of appropriate risk for surgery with Dr. Huerta. Apr, Mixed hyperlipidemia (ICD-10 - E78.2) Currently taking [...] exercise as directed, and reduce fat intake. Apr, Generalized anxiety disorder (ICD-10 - F41.1) No suicidal or homicidal ideations. Well controlled at this time with Buspar 30 mg BID and Sertraline 100 mg BID. Will continue current treatment plan at this time. Apr, Moderate episode of recurrent major depressive disorder (ICD-10 - F33.1) No suicidal or homicidal ideations. Well controlled at this time with Buspar 30 mg BID and Sertraline 100 mg BID . Will continue current treatment plan at this time. Apr, Asthma (ICD-10 - J45.909) CXR results reviewed with him, likely shows some degree of COPD as well with his hyperinflation. He wants to follow up with pulmonary after his TURP with Dr. Huerta and obtain PFT, he will let our office know when he wants this referral sent. Currently taking Breo 200/25 mcg inhalation 1 puff daily. Will continue current treatment plan at this time. Apr, Obstructive sleep apnea (adult) (pediatric) (ICD-10 - G47.33) Patient is very compliant with JOSE ANGEL BIPAP machine. Will continue current treatment plan at this time. Consult notes reviewed from sleep lab. Continue to follow with Dr. Sheldon at sleep lab. Apr, Benign prostatic hyperplasia with lower urinary tract symptoms (ICD-10 - N40.1) He will be having surgery with his urologist. He is to continue to follow with urology. He will be seeing Dr. Deanna martell. 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 It was recommended to repeat these every year. He completed in 2022. Apr, Obesity (BMI 35.0-39.9 without comorbidity) (ICD-10 - E66.9) Patient is advised to work on healthy diet choices and appropriate servings, weight control, regular exercise as directed, reduced fat intake, and salt avoidance. Patient voiced understanding of this and agrees to this plan. [facility] Other 12-26-2023 Evaluation note* Encounter Date Diagnosis Assessment Notes Treatment Notes Treatment Clinical Notes Mar, Pre-op evaluation (ICD-10 - Z01.818) [facility] Other 12-19-2023 Evaluation note* Encounter Date Diagnosis Assessment Notes Treatment Notes Treatment Clinical Notes Mar, Abnormal CBC (ICD-10 - R79.89) [facility] Other 12-18-2023 Evaluation note* Encounter Date Diagnosis Assessment Notes Treatment Notes Treatment Clinical Notes Mar, Controlled type 2 diabetes mellitus [...] received results. These are requested today from [facility]. Mar, Obesity (BMI 35.0-39.9 without comorbidity) (ICD-10 - E66.9) Patient is advised to work on healthy diet choices and appropriate servings, weight control, regular exercise as directed, reduced fat intake, and salt avoidance. Patient voiced understanding of this and agrees to this plan. [facility] Other 12-05-2023 Evaluation note* Encounter Date Diagnosis [...] (ICD-10 - J40) See above treatment plan. [facility] Other 11-21-2023 Evaluation note* Encounter Date Diagnosis Assessment Notes Treatment Notes Treatment Clinical Notes Feb, COVID-19 (ICD-10 - U07.1) [facility] Other 11-08-2023 NoteHNO ID: [id number] Author: Kesha Clifton MD Service: ? Author Type: Physician Type: Progress Notes Filed: 02/20/2023 10:57 AM Note Text: [id number] ATTENDING PHYSICIAN: Kesha Clifton MD DATE OF [...] Range Status 01/23/2023 7.9 % Final Abs Jasper Date Value Ref Range (more content not included)...[facility] 02-20-2023 History of Present illness Narrative* Kesha Clifton MD - 02/20/2023 10:50 AM EST Images from the original note were not included. PATIENT NAME: Rachel Ackerman [facility] NO.: [id number] ATTENDING PHYSICIAN: Kesha Clifton MD DATE OF SERVICE: February 20, 2023 Dear here is an update on a follow up visit on male Rachel cAkerman at the clinic 02/20/2023 Diagnosis: Thrombocytopenia Treatment [...] Range Status 01/23/2023 7.9 % Final Abs Jasper Date Value Ref Range Status 01/23/2023 0.60 [...] do not hesitate to contact me at [phone]. Kesha Clifton MD Hematology/Medical Oncology [facility] spent a total of 20 minutes on the date of the service which included preparing to see the patient, [id number] patient care, completing clinical documentation, obtaining and/or reviewing separately obtained history, and counseling and educating the patient/family/caregiver. CC: Elia Huerta MD [facility] Miscellaneous Notes* Telephone Encounter - Patrica Peoples - 01/28/2023 3:07 PM EDT Office note [...] Crystal Cooley RN Triage please fax to [phone] or call [phone] c/o Mary documented in [facility]10-[facility]-2023 NoteHNO ID: [id number] Author: Kesha Clifton MD Service: ? Author Type: Physician Type: Progress Notes Filed: 01/23/2023 12:34 PM Note Text: PATIENT NAME: Rachel Ackerman [facility] NO.: [id number] ATTENDING PHYSICIAN: Kesha Clifton MD DATE OF [...] Heart: RRR without mur (more content not included)...[facility] 12-26-2022 [id number]:[address] [place], [place] [address]306009-12-2023 Hospital Discharge instructions Patient Education 12/25/2022 17:00:26 [...] With:Elia HUERTA Address: [facility] [address] [address], [place] [address]- Business (1) When: Unknown Comments:Office will call to [...] if you have a fever over 100 degrees.[facility] 12-25-2022 Evaluation + Plan noteExtracted from: Title:Urology Progress Note Author:DEANNA WADDELL, Mario Cardona Date:12/25/22 Impression and Plan Impression: #1. This [...] including vitamins, herbs, eye drops, creams, and tzvl-cwi-yykmsaw medicines. Any problems you or family members [...] provider tells you to take them. Taking mppw-pcu-mdnkhsu medicines, vitamins, herbs, and supplements. Surgery safety [...] provider. Document Revised: 12/26/2021 Document Reviewed: 12/26/2021 [employer] Patient Education 2022 [employer] 11/12/2022 13:23:11 Urodynamic Testing Urodynamic Testing Urodynamic [...] including vitamins, herbs, eye drops, creams, and ntrd-erf-ohblrsi medicines. ?Whether you are or may be [...] provider. Document Revised: 12/13/2021 Document Reviewed: 11/04/2020 [employer] Patient Education 2022 [employer] 11/12/2022 13:13:30 Benign Prostatic Hyperplasia Benign Prostatic [...] urethra. Follow these instructions at home: Take sobz-sxw-behyhoa and prescription medicines only as told by [...] provider. Document Revised: 10/18/2021 Document Reviewed: 10/18/2021 [employer] Patient Education 2022 [employer] Follow Up Care 09/05/2021 11:51:48 With:DEANNA WADDELL, Elia Cardona, URL Address: [facility] [address] , [place] [address]- [phone] When: Unknown Comments:sched urodynamics and cysto [facility] [place] 06-15-2023 Evaluation note* Encounter Date Diagnosis Assessment Notes Treatment Notes Treatment Clinical Notes Sep, Medicare annual wellness visit, subsequent (ICD-10 - Z00.00) Personalized health advice was given to the beneficiary including a written plan for screenings discussed and provided. Advanced care planning reviewed and/or information given as requested. The above visit was performed by Mary De Leon, under direct supervision of Patrica Cruz,DNP,TOWER OPERATOR,THEATER EDUCATION TEACHER. Document reviewed and amended by provider signed [...] of this and agrees to this plan. [employer] [facility] Other 11-14-2022 Evaluation note* Encounter Date Diagnosis [...] current treatment plan at this time. Feb, Asthma (ICD-10 - J45.909) Well controlled at [...] due to some fluid behind right ear. [facility] Other 05-24-2022 Hospital Discharge instructions Patient Education [...] urethra. Follow these instructions at home: Take bzel-pqx-uzlxomd and prescription medicines only as told by [...] 04/01/2006 Document Revised: 02/24/2019 Document Reviewed: 05/06/2017 [employer] Patient Education 2020 [employer] Follow Up Care 09/01/2020 11:16:04 With:Miguel Martinez MD, STAS Neal Address: [facility] [address], [place] [address]- When: Unknown [facility] 05-12-2022 Evaluation note* Encounter Date Diagnosis Assessment Notes Treatment Notes Treatment Clinical Notes August, Medicare annual wellness visit, initial (ICD-10 - Z00.00) Personalized health advice was given to the beneficiary including a written plan for screenings discussed and provided. Advanced care planning reviewed and/or information given as requested. The above visit was performed by Radha Lee LPN IV-CC, under direct supervision of Patrica Cruz, DNP,TOWER OPERATOR, THEATER EDUCATION TEACHER. Document reviewed and amended by provider signed [...] screening done. PSA screening lab ordered today. [facility] Other 11-10-2021 Evaluation note* Encounter Date Diagnosis [...] exercise as directed, and reduce fat intake. 10 Feb, 2021 Generalized anxiety disorder (ICD-10 - F41.1) No [...] current treatment plan at this time. 10 Feb, 2021 Asthma (ICD-10 - J45.909) Well controlled [...] exercise as directed, and reduce fat intake. [facility] Other Evaluation + Plan note Future Appointments Appointment Date:09/11/2022 09:15:00 AM Scheduled Provider:Miguel Martinez MD, Will Carmichael Location:[facility] Appointment Type:URO Office Visit Diagnostic Tests Pending * PSA Total 09/05/21 [facility] evaluation + Plan note Future Appointments Appointment Date:12/11/2022 08:15:00 AM Scheduled Provider: Location:[facility] Appointment Type:Urology CALL PAT Appointment Date:12/25/2022 03:00:00 PM Scheduled Provider: Location:[facility] Appointment Type:Urology FT Appointment Date:12/25/2022 03:45:00 PM Scheduled Provider: Location:[facility] Appointment Type:Urology FT [facility] evaluation noteNo [email or web address] Other Evaluation noteNo assessment information available [facility] Work Phone: Evaluation note* Diagnosis Thrombocytopenia (HCC)- Primary Thrombocytopenia, unspecified Platelets decreased (HCC) Thrombocytopenia, unspecified documented in this encounter [facility] general Narrative - Reported* Type Description Date [...] 02/2017 Surgical History tonsillectomy Hospitalization History see [employer] Other [facility] general Narrative - Reported* Type Description Date [...] total knee replacement. 2020 Hospitalization History see [employer] Other [facility] general Narrative - Reported* Type Description Date [...] LEFT EAR Surgical History RIGHT KNEE ARTHOSCOPY -2014 Surgical History SINUS SURGERY 02/2017 Surgical History tonsillectomy Surgical History R total knee replacement. 2020 Hospitalization History see [employer] Other Hospital course Narrative No data available for this section [facility] progress note No data available for this section [facility] Summary Purpose Family History No Family History Records FoundNo Family History Records FoundNo Family History Records FoundNo Family History Records FoundNo Family History Records Found Advance Directives No Advanced Directives Records Found Advance Directive Response Recorded Date/ Time Advance Directives No May 19, 2018 2:53pm Advance Directive Response Recorded Date/ Time Advance Directives No May 19, 2018 1:53pm Hospital Course Note [facility] Clinical Discharge Summary PERSON INFORMATION Name RACHEL ACKERMAN Age 68 Years 1950 Sex MALE Language Kinyarwanda PCP Patrica Cruz DNP Marital Status Med Service Med/Surg Acct# Arrival 06/01/2019 06:00:00 Visit Reason SURGERY - RIGHT TOTAL KNEE Acuity LOS Address: [address] [place] [address] Comment: PROVIDER INFORMATION VITALS INFORMATION Vital Sign [...] history): All Problems Alcoholism / SNOMED CT 40463305 / Confirmed Anxiety / SNOMED CT 41085478 / Confirmed Asthma / SNOMED CT 046328200 / Confirmed Depression / SNOMED CT 02944555 / Confirmed Former smoker / SNOMED CT 45273734 / Confirmed Hyperlipidemia / SNOMED CT 92923395 / Confirmed Skin cancer / SNOMED CT 1298742957 / Confirmed Sleep apnea / SNOMED CT 02480285 / Confirmed Physical Examination VS/Measurements Vital Signs (last 24 hrs) Last Charted Heart Rate Peripheral 87 bpm (B 30 12:48) Resp Rate 20 br/min (B 30 12:48) SBP H 147mmHg (JUN 01:48) DBP 80 mmHg (B 30 12:48) SpO2 97 % (JUN 01:48) Weight 109.50 kg (JUN 01:) Height 175.26 cm (F (more content not included)... Procedure Findings Note Patient: RACHEL ACKERMAN Age: 68 years Sex: MALE : 1950 Associated Diagnoses: None Author: Jonathon Ely MD Postoperative Information Post Operative Note Health Status Allergies: Allergic Reactions (All) Severity Not Documented Cardura- Anaphylaxis. Problem list (past medical history): All Problems Alcoholism / SNOMED CT 79717386 / Confirmed Anxiety / SNOMED CT 03154347 / Confirmed Asthma / SNOMED CT 218457907 / Confirmed Depression / SNOMED CT 82048169 / Confirmed Former smoker / SNOMED CT 64782187 / Confirmed Hyperlipidemia / SNOMED CT 28734173 / Confirmed Skin cancer / SNOMED CT 0416721744 / Confirmed Sleep apnea / SNOMED CT 25761718 / Confirmed Physical Examination VS/Measurements Vital Signs (last 24 hrs) Last Charted Heart Rate Peripheral 87 bpm (B 30 12:48) Resp Rate 20 br/min (B 30 12:48) SBP H 147mmHg (B 09:48) DBP 80 mmHg (B 30 12:48) SpO2 97 % (JUN 01:48) Weight 109.50 kg (FEB 17 06:25) Height 175.26 cm (F (more content not included)... Reason for Referral Reason * FU 03/05 Refer t o urology, would like to see someone other than Dr. Rivera (he is a current patient of Dr. Rivera), would like to see Dr. Huerta or Dr. Rogers Diagnosis 1 Benign prostatic hyp erplasia with lower urinary tract symptoms (N40.1) Referral Organization [facility] Referring Provider First Name Patrica Referring Provider Last Name Anthony Referring Provider Specialty Nurse Pract itioner Referred Organization [facility] Referred Provider Eduardo Rogers Referred Address [address] [facility] [address],[place], [place],[address] Referred Provider Specialty Urology Referral Priority Routine General Notes Daisy Pierre 11:04:12 AM >referral received and faxed Chief Complaint and Reason for Visit Chief Complaint Sleep apnea annual f ollow up Chief Complaint See order Additional Source Comments (unrecognized sect ion and content) No Status Records FoundNo Status Records FoundNo Status Records FoundNo Status Records FoundNo Status Records Found INFORMATION SOURCE (unrecogn ized section and content) DATE CREATED AUTHOR 06/16/2019 [facility] DATE CREATED AUTHOR AUTHOR'S ORGANIZ ATION [facility]/24/[facility] DATE CREATED AUTHOR AUTHOR'S ORGANIZ ATION 02/21/2023 [facility] DATE CREATED AUTHOR AUTHOR'S ORGANIZ ATION 04/14/2023 [facility] DATE CREATED AUTHOR AUTHOR'S ORGANIZ ATION 04/17/2023 [facility] REASON FOR VISIT (unrecogniz ed section and content) Reason Comments Patient Update Reason Comments Thrombocytopenia Follow up Care Teams (unrecognized sec tion and content) Team Status: Active Member Role Status Dates Patrica Cruz DNP Primary Care Provider Active Team Status: Inactive Member Role Status Dates Patrica Cruz DNP Primary Care Provider Active Genaro Sheldon MD Attending Provider Active Team Status: Inactive Member Role Status Dates Patrica Cruz DNP Primary Care Provider, Attending Provider Active Goals (unrecognized section and content) Goals may be documented in a n alternate section Source Comments (unrecognize d section and content) In the event this informatio n is protected by the Federal Confidentiality of Alcohol and Drug Abuse Patient Records regulations: The Federal rules restrict any use of the information to criminally investigate or prosecute any alcohol or drug abuse patient.[facility] Center[facility] the event this information is protected by the Federal Confidentiality of Alcohol and Drug Abuse Patient Records regulations: The Federal rules restrict any use of the information to criminally investigate or prosecute any alcohol or drug abuse patient.[facility] Center[facility] the event this information is protected by the Federal Confidentiality of Alcohol and Drug Abuse Patient Records regulations: The Federal rules restrict any use of the information to criminally investigate or prosecute any alcohol or drug abuse patient.[facility] FOR RECORDS PERTAINING TO PATIENTS WHO ARE [...] BE BASED ON THE PRIMARY CLINICAL RECORDS. [facility]. provides no warranty or guarantee of the accuracy or completeness of information in this document.
[2023-04-18] MEDS: LACTATED RINGER'S SOLUTION 1,000 ML 50 ML IV (09:22)
[2023-04-18] MEDS: LEVOFLOXACIN IN DEXTROSE 5 % 500 MG/100 ML PIGGYBACK 100 MG IV (09:22)
--- NOTE | 2023-04-18 10:54 | P.URON_ITS ---
Urology Surgery Operative Note Operative Note Procedure Date: 04/18/23 Time Out Performed: yes Pre-op Diagnosis: BPH with LUTS refractory to medications Post-op Diagnosis: same as pre-op Procedures performed: 1. Cystoscopy. 2. Transurethral resection of the prostate Anesthesia: PAT Primary Surgeon: Elia Sinha Complications: None Estimated blood loss (mL): 20 Findings: Large obstructing lateral lobes Specimens: Prostate chips Drains: 22 Wolof three-way coud? Plaza catheter in the bladder to the traction and CBI Indications for Procedures: This gentleman has BPH with LUTS that is refractory to medications. He still has a weak stream and incomplete emptying. Urodynamically he has very high pressure and a low average flow rate. Endoscopically he has obstructing lateral lobes with compensatory bladder damage. He is strongly desirous for TURP. He has signed an informed consent after all risks were explained. Some of these include bleeding, infection, anesthesia, retrograde ejaculation, urinary incontinence both temporary and permanent, erectile dysfunction and the need for possible future procedures on the prostate just to name a few. Detailed description of Procedure: The patient was brought to the operating room and placed on the operating room table in the supine position. SCDs were placed on the lower extremities and turned on and functioning during the entire case. Timeout was done by all parties in the room. We all agreed upon the patient's identification and the planned procedures for this patient. Genn. anesthesia was then administered. The patient was then repositioned into the modified dorsal lithotomy position. All pressure points were satisfactorily padded. Genitalia were sterilely prepped and draped in usual fashion. I started by passing a 26 Wolof Olympus resectoscope with a standard bipolar loop electrode per urethra and into the bladder. The ureteral orifices were marked with the loop electrode. I started on the median lobe and uniformly resected this down to the bladder neck level. I then resected posteriorly from the bladder neck to the Veru. The left lateral lobe and capacious right lateral lobes were then taken down from the bladder neck to the Veru to the capsular level. The anterior tissue was then resected similarly. The bladder neck was opened up at the 5 and 7:00 positions. The scope was brought back to the apex and this was opened up carefully. The resection bed was coagulated with the loop electrode. The Ilich evacuator was used to get all the prostate chips out of the bladder and these were sent for permanent sections. Upon completion with the scope at the apex, the prostatic urethra and bladder neck were now wide open. There was no bleeding. There were no chips remaining in the bladder. The scope was then removed. I then placed a 22 Wolof three-way coud? Plaza in the bladder. A catheter tip Guillermo syringe was used to irrigate manually first and then the balloon was inflated with 30 cc of healing. The catheter was taped to traction and CBI was started. It irrigated clear. The anesthetic was then reversed. He was then transferred [facility] and wheeled to PACU in stable condition. Urinary Catheter Management Urinary Catheter Management Urethral: Cath placed during this visit: yes Urethral indwelling: Yes Reason for continuing: surgical procedure Insertion date: 04/18/23
[2023-04-18] MEDS: 0.9 % SODIUM CHLORIDE 1,000 ML 80 ML IV ×2 (11:14→22:55)
[2023-04-18] MEDS: SOLIFENACIN SUCCINATE 10 MG TABLET PO (11:15)
[2023-04-18] MEDS: HYDROCODONE/ACET 5-325 MG TABLET 1 TAB PO ×3 (11:48→20:38)
[2023-04-18] MEDS: SODIUM CHLORIDE IRRIG SOLUTION 3,000 ML 3000 ML IRR ×10 (11:56→22:55)
[2023-04-18] MEDS: CEFAZOLIN SODIUM/DEXTROSE,ISO 1 GM/50 ML IV.SOLN IV ×2 (15:47→20:35)
[2023-04-18] MEDS: TEMAZEPAM 15 MG CAPSULE PO (20:38)
[2023-04-18] MEDS: SERTRALINE HCL 100 MG TABLET PO (20:39)
[2023-04-18] MEDS: BUSPIRONE 30 MG 1 EACH PO (20:39)
[2023-04-18] MEDS: ATORVASTATIN 80 MG TABLET 1 EACH PO (21:39)
[2023-04-19] MEDS: SODIUM CHLORIDE IRRIG SOLUTION 3,000 ML 3000 ML IRR ×5 (00:18→04:09)
[2023-04-19 00:20] VITALS: BP 126/66; PULSE 75; RESP 18; TEMP 36.6; O2SAT 90
[2023-04-19 03:08] VITALS: BP 121/68; PULSE 65; RESP 16; TEMP 36.7; O2SAT 91
[2023-04-19] MEDS: HYDROCODONE/ACET 5-325 MG TABLET 1 TAB PO (04:09)
[2023-04-19] MEDS: SOLIFENACIN SUCCINATE 10 MG TABLET PO (08:56)
[2023-04-19] MEDS: EZETIMIBE 10 MG TABLET PO (08:57)
[2023-04-19] MEDS: FINASTERIDE 5 MG TABLET PO (08:58)
[2023-04-19] MEDS: BUSPIRONE 30 MG 1 EACH PO (08:58)
[2023-04-19] MEDS: SERTRALINE HCL 100 MG TABLET PO (08:58)
== END 2023-04-19 11:20 | disposition home or self-care (01) ==
LOC: SURGOUT 10:43 → MS 04-19 08:27
PROVIDERS: PCP Nurse Practitioner Family; Visit Provider Urology
PROC: (CPT 52601; principal; 2023-04-18 10:10)
DX: N40.1 Benign prostatic hyperplasia with lower urinary tract symptoms (principal); R39.12 Poor urinary stream; R33.9 Retention of urine, unspecified; E78.5 Hyperlipidemia, unspecified; G47.33 Obstructive sleep apnea (adult) (pediatric); F41.1 Generalized anxiety disorder; F33.1 Major depressive disorder, recurrent, moderate; J45.909 Unspecified asthma, uncomplicated; Q25.40 Congenital malformation of aorta unspecified; E66.9 Obesity, unspecified; Z68.35 Body mass index [BMI] 35.0-35.9, adult; E11.9 Type 2 diabetes mellitus without complications; Z96.651 Presence of right artificial knee joint; Z79.899 Other long term (current) drug therapy; Z85.828 Personal history of other malignant neoplasm of skin
CPT/HCPCS: 52601; 36415; 88305; 96365; J0330; J0690; J1100; J2250; J2371; J2405; J2704; J3010

== ENCOUNTER 2023-09-10 08:26 | Outpatient (OUT) | payer MEDICARE, OTHER, SELFPAY ==
[2023-09-10 08:37] LABS: Basophils Absolute Auto 0.1 10^3/uL (0.0-0.1); Eosinophils Absolute Auto 0.1 10^3/uL (0.0-0.7); Eosinophils Percent Auto 1.7 % (0.9-7.0); Hematocrit 43.2 % (42.0-54.0); Immature Granulocytes Abs Auto 0.05 10^3/uL (0.00-0.03); Immature Granulocytes Pct Auto 0.7 % (0.0-0.5); Lymphocytes Percent Auto 39.3 % (20.5-60.0); Mean Corpuscular HGB Conc 34.7 g/dL (29.9-35.2); Mean Corpuscular Hemoglobin 29.1 pg (25.9-34.0); Mean Corpuscular Volume 83.9 fL (80.0-94.0); Monocytes Absolute Auto 0.6 10^3/uL (0.3-0.8); Monocytes Percent Auto 7.3 % (1.7-12.0); Neutrophils Absolute Auto 3.8 10^3/uL (1.4-6.5); Platelet Count 124 10^3/uL (150-450); Red Blood Count 5.15 10^6/uL (4.70-6.10); Red Cell Distribution Width 13.2 % (11.0-15.0); White Blood Count 7.6 10^3/uL (4.0-11.0)
--- NOTE | 2023-09-10 09:00 | RT_ITS ---
[facility] Test Date: 2023-09-10 Pat Name: RACHEL HENRY Department: Room: - Gender: Male Senior Quality Manager: Morenita Kahn RRT : 1950 Requested By: Ean Albright Order Number: [id number] Reading MD: Ean Albright Interpretive Statements Pulmonary function testing was completed according to ATS criteria. Findings were considered accurate and reproducible, with exception of FVC which did not meet ATS standards. Both pre- and post-bronchodilator values utilized for spirometry. Spirometry (based on pre-bronchodilator values): -FEV1/FVC: Low normal @ 73% -FEV1: Supranormal @ 147% -FVC: Supranormal @ 143% -There is no significant bronchodilator response. Lung volumes by plethysmography (based on pre-bronchodilator values): -RV: Increased @ 146% -TLC: Increased @ 140% Diffusion capacity: -DLCO: Normal @ 112% when corrected for Hb g/dL Impressions: -Spirometry FEV1/FVC ratio trends towards obstruction, though actual numbers are supranormal. No bronchodilator response. Increased lung volumes are supranormal and could indicate air trapping and hyperinflation respectively. Normal diffusion capacity. Overall study suggests a mild obstructive process. Clinical correlation required. Electronically Signed On 09-10-2023 15:48:36 EDT by Ean Albright
--- NOTE | 2023-09-10 10:09 | XR_ITS ---
The [address] [address] Patient Name: RACHEL HENRY MRN: [id number] date: 1950 Sex: M Assigned Patient Location: LAB Current Patient Location: LAB Accession/Order Number: [id number] Exam Date: 09/10/2023 10:12 Report Date: 09/10/2023 13:55 At the request of: HUMPHREY GONZALEZ Procedure: XR chest 2V EXAMINATION: XR chest 2V HISTORY: Mild Persistent Asthma J45.30 COMPARISON: XR chest 05/07/2019 FINDINGS: LUNGS: Small patchy opacity within lateral left lung base. VASCULATURE: No increased pulmonary vasculature. PLEURA: No pneumothorax, effusion, or pleural thickening. CARDIAC: No cardiomegaly or cardiac silhouette abnormality. MEDIASTINUM: No visible mass or adenopathy. BONES: No fracture or visible bone lesion. OTHER: Negative. XR/XR chest 2V IMPRESSION: 1. Trace amount of left basilar infiltrates versus atelectasis; new since prior study. Electronically authenticated by: FLO VELASQUEZ Date: 09/10/2023 13:55
[2023-09-10] MEDS: ALBUTEROL SULFATE 2.5 MG/3 ML VIAL NEB IH (10:11)
[2023-09-12 16:10] LABS: Immunoglobulin E, Total 45 IU/mL (6-495)
== END 2023-09-10 08:27 | disposition home or self-care (01) ==
LOC: LAB 08:26
PROVIDERS: PCP Nurse Practitioner Family; Visit Provider Internal Medicine
DX: J45.30 Mild persistent asthma, uncomplicated (principal)
CPT/HCPCS: 36415; 71046; 82785; 85025; 94060; 94726; 94729

== ENCOUNTER 2023-09-19 09:17 | Outpatient (OUT) | payer MEDICARE, OTHER, SELFPAY ==
--- NOTE | 2023-09-19 09:19 | CT_ITS ---
[address] [address] Patient Name: RACHEL HENRY MRN: [id number] date: 1950 Sex: M Assigned Patient Location: CT Current Patient Location: CT Accession/Order Number: [id number] Exam Date: 09/19/2023 09:44 Report Date: 09/19/2023 10:46 At the request of: HUMPHREY GONZALEZ Procedure: CT chest wo con EXAMINATION: CT chest wo con HISTORY: Abnormal Chest Xray ; adult onset asthma COMPARISON: XR chest 09/10/2023 TECHNIQUE: Multi-planar CT images were obtained without and/or with IV contrast as indicated by examination type. Axial, Coronal, and Sagittal images. Dose reduction techniques were achieved by using automated exposure control and/or adjustment of mA and/or kV according to patient size and/or use of iterative reconstruction technique. FINDINGS: LUNGS: 2.4 x 1.7 x 1.5 cm geographic shaped mass versus infiltrate within lingula adjacent the diaphragm. Mildly elevated left hemidiaphragm and trace amount stranding within left lower lobe. PLEURA: No mass, effusion, or pneumothorax. VASCULATURE: No abnormality. EVA: No mass or adenopathy. MEDIASTINUM: No mass or adenopathy. CARDIAC: No enlargement or pericardial thickening.. Coronary artery calcifications: AORTA: No aneurysm or dissection. CHEST WALL: No mass or axillary adenopathy. BONES: No bone lesion or fracture. LIMITED ABDOMEN: No suspicious findings Limited images of the upper abdomen. OTHER: Negative. CT/CT chest wo con IMPRESSION: 1. Irregular geographic shaped mass versus infiltrates within lingula; neoplasm cannot be excluded. Follow-up CT chest in 1 month to document improvement is recommended. Alternatively, PET imaging could be performed at this time. Electronically authenticated by: FLO VELASQUEZ Date: 09/19/2023 10:46
== END 2023-09-19 09:18 | disposition home or self-care (01) ==
LOC: CT 09:17
PROVIDERS: PCP Nurse Practitioner Family; Visit Provider Internal Medicine
DX: R93.89 Abnormal findings on diagnostic imaging of other specified body structures (principal)
CPT/HCPCS: 71250

== ENCOUNTER 2023-10-14 15:20 | Outpatient (OUT) | payer MEDICARE, OTHER, SELFPAY ==
--- OUTSIDE RECORDS SUMMARY | 2023-10-14 15:27 | XMS_ITS | CCD ---
Author Organization [facility] CliniSyar Care Team Providers Care Manufacturing Engineering Technologist Name Role Phone REQUEST, DR NONE LISTED Attending Unavaila ble REQUEST, NONE LISTED Consulting Unavaila ble REQUEST, DR NONE LISTED Admitting Unavaila ble PATRICA CRUZ Primary Care Unavailable PATRICA CRUZ Attending Unavailable KAPFORREST, PATRICA Primary Care Unavailable PATRICA CRUZ Admitting Unavailable MIGUEL WESTFALL, DR WILL Carmichael Consulting Unavailabl e RIVERA , DR WILL Carmichael Admitting Unavailabl e ANTHONY, PATRICA Primary Care Unavailable MIGUEL WESTFALL, DR WILL Carmichael Attending Unavailabl e KAPPATRICA CADE Consulting Unavailable PATRICA CRUZ Primary Care Unavailable PATRICA CRUZ Admitting Unavailable PATRICA CRUZ Attending Unavailable REQUEST, NONE LISTED Admitting Unavaila ble REQUEST, NONE LISTED Attending Unavaila ble REQUEST, NONE LISTED Consulting Unavaila ble PATRICA CRUZ Primary Care Unavailable PATRICA CRUZ Primary Care Physician Patrica Cruz Unavailable Patrica Cruz Unavailable GUICHO Cruz Primary Care Provider MD Genaro Sheldon Attending Provider Unavailable Primary Care Provider Unavailabl e KARAMLOU, KESHA Referring Unavailable KARAMLOU, KESHA Attending Unavailable ABBY, KESHA Attending Unavailable GUICHO Cruz Primary Care Provider GUICHO Cruz Attending Provider [phone] Patrica Cruz Attending Unavailable Patrica Cruz Admitting Unavailable Patrica Cruz Primary Care Unavailable Genaro Sheldon Admitting Unavailable Genaro Sheldon Attending Unavailable Patrica Cruz Primary Care Unavailable GUICHO Cruz Primary Care Provider GUICHO Cruz Attending Provider JORDANA ESCAMILLA Attending Unavailable JORDANA ESCAMILLA Referring Unavailable MARIA FERNANDA ECHOLS Attending Unavailable HUERTA, Elia Cardona Attending Unavailable HUERTA, Elia R Attending Unavailable HUERTA, Elia R Referring Unavailable HUERTA, Elia R Admitting Unavailable HUERTA, Elia R Attending Unavailable HUERTA, Elia R Attending Unavailable Haydee Camilo Attending Unavailable HUERTA, Elia R Attending Unavailable HUERTA, Elia R Attending Unavailable HUERTA, Elia R Attending Unavailable HUERTA, Elia R Attending Unavailable Allergies Allergy Classification Reported Allergen(s) Allergy Type Date of Onset Reaction(s) Facility Adrenergic Antagonists (2 sources) Doxazosin Drug Allergy 5 [facility] Repository (20 sources) Doxazosin; Translations: [doxazosin] Drug Allergy 3 Anaphylaxis (disorder), anaphylaxis [facility] Other (1 source) Doxazosin Drug Allergy 4 [facility] Repository Medications Current Medications Medication Drug Class(es) Dates Sig (Normalized) Sig (Original) acetaminophen 500 mg oral capsule (20 sources) Start: 07-08-2023 take 1 capsule by mouth every six hours as needed Acetaminophen Active 1 CAP PO Every 6 hours July 08, 2023 12:00am FreeTextSi capsule as needed Orally every 6 hrs; Note: Source Status: Taking; Provider: Anthony Burciaga ( ) Start: 06-26-2019 take 1 mg by mouth e very six hours acetaminophen 500 mg Tab mg tab(s), Oral, q6hr, Refills(s) 0 Start Date: 06/26/19 Status: Ordered take 1 capsule by [facility] every six hours Acetaminophen 500 MG 1 capsule as needed Orally every 6 hrs Active Comment on above: Take 500 mg by mouth every 6 hours as needed. [id number] 200 actuat albuterol 0.09 mg/actuat metered dose inhaler (18 sources) beta2-Adrenergic Agonist Start: 07-08-2023 take 2 puff(s) by inhalation every four hours as needed for cough Albuterol Sulfate Active INHALATION July 08, 2023 12:00am FreeTextSig: TAKE 2 PUFFS NEEDED EVERY 4 HOUR FOR SHORTNESS OF BREATH, WHEEZING, OR COUGH; Note: Source Status: Taking; Refills: 2; Qty: 8.5 Each; Provider: Anthony Vides Albuterol Sulfat e HFA 108 (90 Base) [...] tablet (20 sources) HMG-CoA Reductase Inhibitor Start: Atorvastatin Active 1 TAB PO Daily July 08, 2023 12:00am FreeTextSig: TAKE 1 TABLET DAILY Orally Once a day; Note: Source Status: Taking; Refills: 3; Provider: Anthony Vides Comment on above: Take 80 mg by [...] Breo Ellipta 200 mcg-25 mcg/inh inhalation powder (6 sources) Start: 020 take 1 puff(s) by inhalation once daily Breo Ellipta 200 mcg-25 mcg/inh inhalation powder puff(s), Inhalation, Daily, Refill(s) 0 Start Date: 06/26/19 Status: Ordered busPIRone hydrochloride 30 mg oral tablet (20 sources) Start: 017 take 1 tablet by mouth twice daily Buspirone Active 1 TAB PO Twice daily July 08, 2023 12:00am FreeTextSig: TAKE 1 TABLET BY MOUTH TWICE A DAY; Note: Source Status: Taking; Refills: 6; Qty: 180 Tablet; Provider: Anthony Burciaga ( ) take 1 tablet by mouth once abel y busPIRone HCl 30 mg tablet Take 30 mg by mouth once daily. 0 Active Comment on above: Take 30 mg by mouth once daily. ezetimibe 10 mg oral tablet (20 sources) Dietary Cholesterol Absorption Inhibitor Start: 06-26-2019 take 1 tablet by mouth once daily Ezetimibe Active 1 TAB PO Daily July 08, 2023 12:00am FreeTextSig: TAKE 1 TABLET BY MOUTH EVERY DAY; Note: Source Status: Start; Refills: 2; Qty: 90 Tablet; Provider: Anthony Burciaga ( ) Comment on above: Take 10 mg by mouth once daily. ferrous sulfate 325 mg oral tablet (9 sources) Start: 06-26-2019 take 1 mg by [...] tablet (20 sources) 5-alpha Reductase Inhibitor Start: 09-05-2021 take 1 tablet by mouth once daily Finasteride Active 1 TAB PO Daily July 08, 2023 12:00am FreeTextSig: TAKE 1 TABLET BY MOUTH ONCE DAILY; Note: Source Status: Taking; Refills: 3; Qty: 90 Tablet; Provider: Anthony Burciaga ( ) Comment on above: Take 5 mg by mouth o nce daily. Fluticasone Furoate-Vilanterol (18 sources) Corticosteroid, beta2-Adrenergic Agonist Start: 07-08-2023 Fluticasone Furoate-Vilanterol (Breo Ellipta) 200-25 mcg/dose blister with device Active INHALATION July 08, 2023 12:00am take 1 puff(s) by inhalation onc e daily Breo Ellipta 200-25 MCG/ACT INHALE 1 PUFF INTO THE LUNGS EVERY DAY for 30 Active fluticasone-marino nterol (BREO ELLIPTA) 200-25 mcg/dose inhaler Inhale 1 Inhalation as instructed once daily. 0 Active Comment on above: Inhale 1 Inhalation as instructed once daily. 12 hr guaiFENesin 600 mg extended release oral tablet (6 sources) Start: take 1 tablet by mouth twice daily, then take 1 tablet by mouth every twelve hours Guaifenesin (Mucinex) 600 mg tablet extended release 12hr Active 600 MG PO Twice daily July 08, 2023 12:00am Mucinex Not-Taki ng/PRN Mucinex Active ibuprofen 200 mg oral tablet (15 sources) Nonsteroidal Anti-inflammatory Drug Start: 07-08-2023 take 200 mg by mouth every six hours Ibuprofen Active 200 MG PO Every 6 hours July 08, 2023 12:00am Ibuprofen Active sertraline 100 mg oral tablet (20 sources) Serotonin Reuptake Inhibitor Start: 07-08-2023 take 1 tablet by mouth twice daily Sertraline Active 1 TAB PO Twice daily July 08, 2023 12:00am FreeTextSig: TAKE 1 TABLET BY MOUTH TWICE A DAY; Note: Source Status: Taking; Refills: 3; Qty: 180 Tablet; Provider: Anthony Burciaga ( ) Start: 06-26-2019 take 1 mg by mouth once daily sertraline 100 mg Tab mg tab(s), Oral, Daily, Refills(s) 0 Start Date: 06/26/19 Status: Ordered take 1 tablet by [facility] twice daily Sertraline HCl 100 MG TAKE 1 TABLET BY MOUTH TWICE A DAY for 90 Active Comment on above: Take 100 mg by mouth once daily. solifenacin succinate 10 mg oral tablet (2 sources) Cholinergic Muscarinic Antagonist Start: 09-12-2023 solifenacin 10 mg Tab 10 mg = 1 tab(s), Oral, Daily, to start after completion of 1 month 5 mg dose, # 30 tab(s), Refills(s) 1, Pharmacy: [facility]/pharmacy #[id number], 179, cm, 08/13/23 9:15:00 EDT, Height/Length Dosing, 109, kg, 08/13/23 9:15:00 EDT, Weight Dosing Start Date: 09/12/23 Status: Ordered Start: 08-13-2023 End: 09-12-2023 take 1 tablet by mouth once daily solifenacin 5 mg Tab 5 mg = 1 tab(s), Oral, Daily, X 30 day(s), # 30 tab(s), Refills(s) 0, Pharmacy: [facility]/pharmacy #[id number], 179, cm, 08/13/23 9:15:00 EDT, Height/Length Dosing, 109, kg, 08/13/23 9:15:00 EDT, Weight Dosing Start Date: 08/13/23 Stop Date: 09/12/23 Status: Ordered tamsulosin hydrochloride 0.4 mg oral capsule (20 sources) alpha-Adrenergic Desirae Start: 09-05-2021 take 1 capsule by mouth once daily tamsulosin 0.4 mg Cap 0.4 mg = 1 cap(s), Oral, Daily, # 90 cap(s), Refills(s) 3, Pharmacy: [facility]/pharmacy #[id number], 174, cm, 09/05/21 10:55:00 EDT, Height/Length Dosing, 109.1, kg, 09/05/21 10:55:00 EDT, Weight Dosing Start Date: 08/19/22 Status: Ordered Comment on above: Take 0.4 mg by mouth once daily. Ventolin HFA 90 mcg/inh Aerosol (6 sources) Start: 06-26-2019 take 1 puff(s) by [...] August, Not-Taking ciprofloxacin 500 mg oral tablet (3 sources) Quinolone Antimicrobial Start: 11-12-2022 take 1 tablet by mouth once daily Cipro 500 mg Tab 500 mg = 1 tab(s), Oral, Daily, take one tab day before procedure and one tab after procedure, # 2 tab(s), Refills(s) 0, Pharmacy: [facility]/pharmacy #[id number], 174, cm, 11/12/22 12:36:00 EDT, Height/Length [...] 06-26-2019 Chronic Cardiac and circulatory congenital anomalies (19 sources) Congenital malformation of aorta unspecified; Translations: [Abnormality of abdominal aorta] Onset: 02-22-2021 Resolved: 08-24-2021 Chronic Chronic obstructive pulmonary disease and bronchiectasis (1 source) Bronchitis, not specified as acute or chronic Episodic Coagulation and hemorrhagic disorders (19 sources) Platelet count below reference range; Translations: [Thrombocytopenia, unspecified] Onset: 02-22-2021 Resolved: 02-22-2021 Chronic Diabetes mellitus without complication (13 sources) Newly diagnosed diabetes; Translations: [Type 2 diabetes mellitus without complications] Chronic Diabetes mellitus without complication (20 sources) Prediabetes; Translations: [Prediabetes] Onset: 09-08-2020 Resolved: 08-24-2021 06-26-2019 Episodic Disorders of lipid metabolism (20 sources) Pure hypercholesterolemia , unspecified; Translations: [Hyperlipidemia] Onset: 09-07-2009 Resolved: 08-24-2021 Chronic Genitourinary symptoms and ill-defined conditions (13 sources) Incontinence; Translations: [Post-micturition incontinence ] Onset: 08-13-2023 07-08-2019 Chronic Genitourinary symptoms and ill-defined conditions (20 sources) Nocturia; Translations: [Nocturia] Onset: 09-05-2021 Episodic [...] Onset: 02-22-2021 Resolved: 08-24-2021 06-26-2019 Chronic Osteoarthritis (6 sources) Arthritis 07-01-2019 Chronic Other circulatory disease (1 source) Elevated blood-pressure reading, without diagnosis of hypertension Episodic Other diseases of bladder and urethra (1 source) Detrusor overactivity; Translations: [Overactive bladder] Onset: 08-13-2023 Chronic Other diseases of kidney and ureters (1 source) Urinary tract obstruction; Translations: [Other obstructive and reflux uropathy] Onset: 12-25-2022 Episodic Other non-epithelial cancer of skin (16 sources) Basal cell carcinoma of skin; Translations: [Basal cell carcinoma of skin, unspecified] 07-08-2023 Episodic Other nutritional; endocrine; and metabolic disorders [...] conditions (not mental disorders or infectious disease) (4 sources) Encounter for screening for malignant neoplasm of prostate; Translations: [Other specified abnormal findings of blood chemistry] Onset: 08-24-2021 Resolved: 08-24-2021 Episodic Other upper respiratory disease (15 sources) Allergic rhinitis; Translations: [Allergic rhinitis, unspecified] 07-08-2023 Chronic Other upper respiratory disease (1 source) Allergic rhinitis, unspecified; Translations: [Allergic rhinitis, cause unspecified] 07-08-2023 Chronic Other upper respiratory infections (16 sources) Chronic maxillary sinusitis; Translations: [Chronic maxillary sinusitis] 07-08-2023 Chronic Residual codes; unclassified (20 sources) Obstructive sleep apnea syndrome; Translations: [Obstructive sleep apnea (adult) (pediatric)] 06-26-2019 Chronic Residual codes; unclassified (8 sources) Obstructive sleep apnea (adult) (pediatric); Translations: [Obstructive sleep apnea (adult)(pediatric)] Onset: 02-22-2021 Resolved: 08-24-2021 Chronic Residual codes; unclassified (1 source) Obstructive sleep apnea (adult)(pediatric); Translations: [Obstructive sleep apnea (adult) (pediatric)] Onset: 11-07-2022 Chronic Screening and history of mental health and substance abuse codes (6 sources) Ex-smoker 08-27-2019 Episodic Unclassified (1 source) Encounter for other preprocedural examination; Translations: [Encounter for other preprocedural examination] Onset: 04-13-2023 Unclassified (1 source) Patient encounter status 08-12-2023 Past or Other Problems Problem Classification Problem Date Documented Da te Episodic/Chronic Viral infection (2 sources) COVID-19 Results Test Name Value Interpretation Reference Range Facility Screenson 08-14-2023 Screens [id number] IFF Normal [facility] Screens [id number] 0TIFF Normal [facility] Ambulatory Visit Summaryon 0 08-13-2023 Ambulatory Visit Summary RACHEL ACKERMAN :1950 Visit Date:08/13/2023 Ambulatory Visit Instructions Your Diagnosis OAB (overactive bladder) Urge urinary incontinence BPH with urinary obstruction Urinary retention Gross hematuria Prostate cancer screening Your Care Team Attending Physician - MASOOD Camilo APRN, [place] [facility] Primary Care Physician - PATRICA CRUZ CNP This Is Your Medications List solifenacin (solifenacin 10 mg Tab) solifenacin (solifenacin 5 mg Tab) Contact prescribing physician if questions or concerns acetaminophen (acetaminophen 500 mg Tab) albuterol (Ventolin HFA 90 mcg/inh Aerosol) atorvastatin (atorvastatin 80 mg Tab) busPIRone (busPIRone 30 mg oral tablet) ezetimibe (Zetia 10 mg Tab) ferrous sulfate (ferrous sulfate 325 mg Tab) finasteride (finasteride 5 mg Tab) fluticasone-vilanterol (Breo Ellipta 200 mcg-25 mcg/inh inhalation powder) sertraline (sertraline 100 mg Tab) Procedures Performed TURP - Transurethral resection of prostate (04/18/2023), Cystoscopy (12/25/2022), Urodynamics (12/25/2022), Nasal sinus procedure (02/2017), Excision of basal cell carcinoma (08/2016), Cataract surgery (02/2016), Colonoscopy (2015), Arthroscopy of knee (06/2014), Pharyngeal operation for obstructive sleep apnea and snoring (1999), Tonsillectomy. Discharge Vitals Temperature (Temporal Artery) 36.6 ?C Heart Rate (Peripheral) 73 Respiratory Rate 20 Blood Pressure 150/80 Height 179 cm Height 70 in Weight 109 kg Weight 239.8 lb BMI 34.02 What to do next Scheduled Follow-Up Appointments Saturday 11:45 AM EDT With: DEANNA WADDELL, Elia Cardona Where: [facility] Patient Educationon 08-13-19 Patient Education Obstetrics and Gynecology Overactive Bladder, Adult Overactive bladder is a condition in which a person has a sudden and frequent need to urinate. A person might also leak urine if he or she cannot get to the bathroom fast enough (urinary incontinence). Sometimes, symptoms can interfere with work or social activities. What are the causes? Overactive bladder is associated with poor nerve signals between your bladder and your brain. Your bladder may get the signal to empty before it is full. You may also have very sensitive muscles that make your bladder squeeze too soon. This condition may also be caused by other factors, such as: ? Medical conditions: ? Urinary tract infection. ? Infection of nearby tissues. ? Prostate enlargement. ? Bladder stones, inflammation, or tumors. ? Diabetes. ? Muscle or nerve weakness, especially from these conditions: ? A spinal cord injury. ? Stroke. ? Multiple sclerosis. ? Parkinson's disease. ? Other causes: ? Surgery on the uterus or urethra. ? Drinking too much caffeine or alcohol. ? Certain medicines, especially those that eliminate extra fluid in the body (diuretics). ? Constipation. What increases the risk? You may be at greater risk for overactive bladder if you: ? Are an older adult. ? Smoke. ? Are going through menopause. ? Have prostate problems. ? Have a neurological disease, such as stroke, dementia, Parkinson's disease, or multiple sclerosis (MS). ? Eat or drink alcohol, spicy food, caffeine, and other things that irritate the bladder. ? Are overweight or obese. What are the signs or symptoms? Symptoms of this condition include a sudden, strong urge to urinate. Other symptoms include: ? Leaking urine. ? Urinating 8 or more times a day. ? Waking up to urinate 2 or more times overnight. How is this diagnosed? This condition may be diagnosed based on: ? Your symptoms and medical history. ? A physical exam. ? Blood or urine tests to check for possible causes, such as infection. You may also need to see a health care provider who specializes in urinary tract problems. This is called a urologist. How is this treated? Treatment for overactive bladder depends on the cause of your condition and whether it is mild or severe. Treatment may include: ? Bladder training, such as: ? Learning to control the urge to urinate by following a schedule to urinate at regular intervals. ? Doing Kegel exercises to strengthen the pelvic floor muscles that support your bladder. ? Special devices, such as: ? Biofeedback. This uses sensors to help you become aware of your body's signals. ? Electrical stimulation. This uses electrodes placed inside the body (implanted) or outside the body. These electrodes send gentle pulses of electricity to strengthen the nerves or muscles that control the bladder. ? Women may use a plastic device, called a pessary, that fits into the vagina and supports the bladder. ? Medicines, such as: ? Antibiotics to treat bladder infection. ? Antispasmodics to stop the bladder from releasing urine at the wrong time. ? Tricyclic antidepressants to relax bladder muscles. ? Injections of botulinum toxin type A directly into the bladder tissue to relax bladder muscles. ? Surgery, such as: ? A device may be implanted to help manage the nerve signals that control urination. ? An electrode may be implanted to stimulate electrical signals in the bladder. ? A procedure may be done to change the shape of the bladder. This is done only in very severe cases. Follow these instructions at home: Eating and drinking ? Make diet or lifestyle changes recommended by your health care provider. These may include: ? Drinking fluids throughout the day and not only with meals. ? Cutting down on caffeine or alcohol. ? Eating a healthy and balanced diet to prevent constipation. This may include: ? Choosing foods that are high in fiber, such as beans, whole grains, and fresh fruits and vegetables. ? Limiting foods that are high in fat and processed sugars, such as fried and sweet foods. Lifestyle ? Lose weight if needed. ? Do not use any products that contain nicotine or tobacco. These include cigarettes, chewing tobacco, and vaping devices, such as e-cigarettes. If you need help quitting, ask your health care provider. General instructions ? Take cewv-cfu-rotpoyl and prescription medicines only as told by your health care provider. ? If you were prescribed an antibiotic medicine, take it as told by your health care provider. Do not stop taking the antibiotic even if you start to feel better. ? Use any implants or pessary as told by your health care provider. ? If needed, wear pads to absorb urine leakage. ? Keep a log to track how much and when you drink, and when you need to urinate. This will help your health care provider monitor yo (more content not included)... Normal [facility] Urology Office/Clinic Noteon 08-13-2023 Urology Office/Clinic Note Chief Complaint OV HPI Staff 72 year old male here due to worsening urgency. Previous DX: BPH w/LUTS, urinary retention and gross hematuria. S/P Cysto & URO's 12/25/22 and TURP 04/18/23. Pt. taking Finasteride 5mg. Dysuria: no Incomplete bladder emptying: yes, PVR 44mL Hematuria: no Frequency: 8x's during the day Urgency: yes Nocturia: 2x's Stream: good stream Post void dripping: no Wearing pads/ Depends: yes, will use 2-3 Depends a day Urge incontinence: yes Stress incontinence: yes Incontinence without Sensory Awareness: no Abdominal pain: no Flank pain: no History of Present Illness I have reviewed and verified the staff HPI to be accurate for this encounter. Portions of this record may have been created with voice recognition artificial intelligence software, specifically [employer], [employer] and or [employer]. Substitutions may have occurred due to the inherent limitations of voice recognition and artificial intelligence software. Review of Systems PHQ Score Initial Depression Screen Score: 0 SCORE Physical Exam Vitals & Measurements T: 36.6 ?C(Temporal Artery) HR: 73(Peripheral) RR: 20 BP: 150/80 HT: 70 in HT: 179 cm WT: 109 kg WT: 239.8 lb BMI: 34.02 General: Well developed, well nourished, in no acute distress. Genitourinary: Flank Pain: none. Bladder: nonpalpable. Assessment/Plan 1. OAB (overactive bladder) (N32.81: Overactive bladder) UA today without signs of bladder infection. Patient continues to experience urgency since TURP. He feels that this originally somewhat improved but is worsening. He does note he has frequency every hour. His primary stream symptoms have significantly improved since TURP. It appears that what remains, are bladder symptoms. Patient denies constipation. Does have 2 to 3 cups of coffee daily, advised on how bladder irritants may exacerbate his urinary symptoms. Drinks a lot of water throughout the day otherwise. He is not taking any diuretics. Discussed use of anticholinergic and beta 3 agonists for bladder control. Typically, insurance requires the failure of two anticholinergic medications before considering beta 3 agonist such as Myrbetriq/Gemtesa. Even w/ insurance coverage, beta 3 agonist may be cost prohibitive. Discussed most common SEs of anticholinergic medications including dry eyes, dry mouth, constipation. May treat SEs symptomatically. Stop medication and report any intolerable SEs. Pt would like to trial medication for OAB treatment. Start Solifenacin 5 mg daily x 1 month. As long as patient is not experiencing any bothersome side effects, will increase dose to 10 mg daily for the following month. -Follow-up as scheduled in October 2023 for medication recheck, PVR. Ordered: solifenacin, 5 mg = 1 tab(s), Oral, Daily, X 30 day(s), # 30 tab(s), Refills(s) 0, Pharmacy: [facility]/pharmacy #[id number], 179, cm, 08/13/23 9:15:00 EDT, Height/Length Dosing, 109, kg, 08/13/23 9:15:00 EDT, Weight Dosing solifenacin, 10 mg = 1 tab(s), Oral, Daily, to start after completion of 1 month 5 mg dose, # 30 tab(s), Refills(s) 1, [id number], cm, 08/13/23 9:15:00 EDT, Height/Length Dosing, 109, kg, 08/13/23 9:15:00 EDT, Weight Dosing 2. Urge urinary incontinence (N39.41: Urge incontinence) Patient is wearing depends throughout the day, changes 2-3 times. See #1. Ordered: solifenacin, 5 mg = 1 tab(s), Oral, Daily, X 30 day(s), # 30 tab(s), Refills(s) 0, Pharmacy: [facility]/pharmacy #[id number], 179, cm, 08/13/23 9:15:00 EDT, Height/Length Dosing, 109, kg, 08/13/23 9:15:00 EDT, Weight Dosing solifenacin, 10 mg = 1 tab(s), Oral, Daily, to start after completion of 1 month 5 mg dose, # 30 tab(s), Refills(s) 1, Pharmacy: [facility]/pharmacy #[id number], 179, cm, 08/13/23 9:15:00 EDT, Height/Length Dosing, 109, kg, 08/13/23 9:15:00 EDT, Weight Dosing 3. BPH with urinary obstruction (N40.1: Benign prostatic hyperplasia with lower urinary tract symptoms) S/p Cysto & Uro's 12/25/22 S/p TURP 04/18/23 - Path shows benign prostatic tissue with stromal hyperplasia [1] Tamsulosin stopped at prior OV. Continues finasteride 5 mg QD. Tolerating well w/o SEs. Continue current dose until f/u appt. IPSS 20, severe symptoms of BPH. Patient is mostly satisfied with urinary symptoms at this time. However, he has had significant improvements in stream, straining, intermittency. He does note that frequency, urgency, feeling of incomplete emptying remains. See #1. 4. Urinary retention (R33.9: Retention of urine, unspecified) Pt states he is unable to make to the bathroom on occasion, experiencing leakage with urgency, has somewhat improved since his TURP. [2] PVR today 44 mL Discussed with patient that he is emptying fairly well. Continue timed voids, voiding maneuvers. Ordered: 01804 Measure Post Void residual urine and/or bladder capacity by US- non-imaging 5. Gross hematuria (R31.0: Gross hematuria) At prior OV was still experiencing hematuria af (more content not included)... Normal [facility] Comment on above: Result Comment: Elec tronically Signed By: MASOOD Camilo APRN, Haydee Campos\.br\Date and Time Signed: 08/13/23 09:53 EDT Ambulatory Visit Summaryon 0 05-06-2023 Ambulatory Visit Summary RACHEL ACKERMAN :1950 Visit Date:05/06/2023 Ambulatory Visit Instructions Your Diagnosis BPH with urinary obstruction Urinary retention Gross hematuria Your Care Team Attending Physician - DEANNA WADDELL, Elia Cardona Primary Care Physician - PATRICA CRUZ CNP This Is Your Medications List finasteride (finasteride 5 mg Tab) Contact prescribing physician if questions or concerns acetaminophen (acetaminophen 500 mg Tab) albuterol (Ventolin HFA 90 mcg/inh Aerosol) atorvastatin (atorvastatin 80 mg Tab) busPIRone (busPIRone 30 mg oral tablet) ezetimibe (Zetia 10 mg Tab) ferrous sulfate (ferrous sulfate 325 mg Tab) fluticasone-vilanterol (Breo Ellipta 200 mcg-25 mcg/inh inhalation powder) sertraline (sertraline 100 mg Tab) [Image Removed: STOP]Stop taking these medications tamsulosin (tamsulosin 0.4 mg Cap) Procedures Performed TURP - Transurethral resection of prostate (04/18/2023), Cystoscopy (12/25/2022), Urodynamics (12/25/2022), Nasal sinus procedure (02/2017), Excision of basal cell carcinoma (08/2016), Cataract surgery (02/2016), Colonoscopy (2015), Arthroscopy of knee (06/2014), Pharyngeal operation for obstructive sleep apnea and snoring (1999), Tonsillectomy. Discharge Vitals Heart Rate (Peripheral) 75 Respiratory Rate 16 Blood Pressure 135/86 Height 179 cm Height 70 in Weight 109 kg Weight 239.8 lb BMI 34.02 What to do next You Need to Schedule the Following Appointments Follow Up with DEANNA WADDELL, RAMON Berumen When: In 3 months Where: [facility] [address], [place] [address]- Medications What How Much When Instructions Unchanged finasteride (finasteride 5 mg Tab) 1 Tablets By Mouth Every day Unchanged acetaminophen (acetaminophen [...] Contact prescribing physician if questions or concerns What How Much When Comments Stop Taking tamsulosin (tamsulosin 0.4 mg Cap) 1 Capsules By Mouth Every day Allergies Cardura (Anaphylaxis) Problems Ongoing - Any problem that you are currently receiving treatment for. Asthma BPH with urinary obstruction Former smoker Generalized anxiety disorder Gross hematuria Hyperlipidemia Incontinence Moderate episode of recurrent major depressive disorder Nocturia Obstructive sleep apnea Post-void dribbling Prediabetes Urinary frequency Urinary retention Urinary urgency Historical - Any problem that you are no longer receiving treatment for. Arthritis Asthma Patient Survey You may receive a survey via text or e-mail asking about your office visit. Please share your experience with us by completing your survey. We appreciate your feedback and thank you for choosing us for your care. Education Materials Benign Prostatic Hyperplasia Benign prostatic hyperplasia (BPH) is an enlarged prostate gland that is caused by the normal aging process. The prostate may get bigger as a man gets older. The condition is not caused by cancer. The prostate is a walnut-sized gland that is involved in the production of semen. It is located in front of the rectum and below the bladder. The bladder stores urine. The urethra carries stored urine out of the body. An enlarged prostate can [...] or symptoms? Symptoms of this condition include: ? Getting up often during the night to (more content not included)... Normal [facility] Patient Educationon 05-06-19 Patient Education Urology Benign Prostatic Hyperplasia Benign prostatic hyperplasia (BPH) is an enlarged prostate gland that is caused by the normal aging process. The prostate may get bigger as a man gets older. The condition is not caused by cancer. The prostate is a walnut-sized gland that is involved in the production of semen. It is located in front of the rectum and below the bladder. The bladder stores urine. The urethra carries stored urine out of the body. An enlarged prostate can [...] or symptoms? Symptoms of this condition include: ? Getting up often during the night to urinate. ? Needing to urinate frequently during the day. ? Difficulty starting urine flow. ? Decrease in size and strength of your urine stream. ? Leaking (dribbling) after urinating. ? Inability to pass urine. This needs immediate treatment. ? Inability to completely empty your bladder. ? Pain when you pass urine. This is more common if there is also an infection. ? Urinary tract infection (UTI). How is this diagnosed? This condition is diagnosed based on your medical history, a physical exam, and your symptoms. Tests will also be done, such as: ? A post-void bladder scan. This measures any amount of urine that may remain in your bladder after you finish urinating. ? A digital rectal exam. In a rectal exam, your health care provider checks your prostate by putting a lubricated, gloved finger into your rectum to feel the back of your prostate gland. This exam detects the size of your gland and any abnormal lumps or growths. ? An exam of your urine (urinalysis). ? A prostate specific antigen (PSA) screening. This is a blood test used to screen for prostate cancer. ? An ultrasound. This test uses sound waves [...] severity of your condition. Treatment may include: ? Observation and yearly exams. This may be the only treatment needed if your condition and symptoms are mild. ? Medicines to relieve your symptoms, including: ? Medicines to shrink the prostate. ? Medicines to relax the muscle of the prostate. ? Surgery in severe cases. Surgery may include: ? Prostatectomy. In this procedure, the prostate tissue is removed completely through an open incision or with a laparoscope or robotics. ? Transurethral resection of the prostate (TURP). In this procedure, a tool is inserted through the opening at the tip of the penis (urethra). It is used to cut away tissue of the inner core of the prostate. The pieces are removed through the same opening of the penis. This removes the blockage. ? Transurethral incision (TUIP). In this procedure, small cuts are made in the prostate. This lessens the prostate's pressure on the urethra. ? Transurethral microwave thermotherapy (TUMT). This procedure uses microwaves to create heat. The heat destroys and removes a small amount of prostate tissue. ? Transurethral needle ablation (TUNA). This procedure uses radio frequencies to destroy and remove a small amount of prostate tissue. ? Interstitial laser coagulation (ILC). This procedure uses a laser to destroy and remove a small amount of prostate tissue. ? Transurethral electrovaporization (TUVP). This procedure uses electrodes to destroy and remove a small amount of prostate tissue. ? Prostatic urethral lift. This procedure inserts an implant to push the lobes of the prostate away from the urethra. Follow these instructions at home: ? Take vjwv-qkv-whcefrq and prescription medicines only as told by your health care provider. ? Monitor your symptoms for any changes. Contact your health care provider with any changes. ? Avoid drinking large amounts of liquid before going to bed or out in public. ? Avoid or reduce how much caffeine or alcohol you drink. ? Give yourself time when you urinate. ? Keep all follow-up visits. This is important. Contact a health care provider if: ? You have unexplained back pain. ? Your symptoms do not get better with treatment. ? You develop side effects from the medicine (more content not included)... Normal [facility] Urology Office/Clinic Noteon 05-06-2023 Urology Office/Clinic Note Chief Complaint F/u to TURP to review path HPI Staff S/P Cysto & Uro's 12/25/22 Pt then underwent TURP 04/18/23. Here today to review pathology report. *Tamsulosin 0.4mg qd & Finasteride 5mg qd therapy. Dysuria: no Incomplete bladder emptying: no Hematuria: off and on since the catheter was removed. Frequency: yes but not as bad as it was before the TURP Urgency: yes Nocturia: 2x Stream: slow and sometimes it sprays all over Leaking: if he is relaxing at home he states there is no leakage but being out and about with a lot of movement he notices some Post void dripping: yes Wearing pads/ Depends: wears depends when he goes out for the just in case protection Urge incontinence: no Stress incontinence: no Incontinence without Sensory Awareness: no Abdominal pain: no Flank pain: no Sexual complaints: no History of Present Illness Tests reviewed: reviewed UA and Path Report. I have reviewed the previous health record information and history for this patient from . I have reviewed and verified the staff HPI to be accurate for this encounter. There have been no associated fever, chills, flank pain, or blood in the urine. Denies any urinary infections since last encounter. Review of Systems PHQ Score Initial Depression Screen Score: 0 SCORE ROS - Provider Constitutional: denies weight loss, denies hot flashes. Eyes: denies eye problems. Gastrointestinal: denies nausea, denies vomiting. Cardiovascular: denies chest pain or angina. Integumentary: no dryness Musculoskeletal: denies musculoskeletal symptoms. ENMT: denies otolaryngeal symptoms. Respiratory: no shortness of breath. Heme/Lymph: denies easy bleeding tendency, denies easy bruising tendency. Psychiatric: no confusion, no anxiety. Genitourinary: See HPI. Physical Exam Vitals & Measurements HR: 75(Peripheral) RR: 16 BP: 135/86 HT: 70 in HT: 179 cm WT: 109 kg WT: 239.8 lb BMI: 34.02 General Appearance: alert, no distress, well nourished, well developed male. Assessment/Plan 1. BPH with urinary obstruction (N40.1: Benign prostatic hyperplasia with lower urinary tract symptoms) S/p Cysto & Uro's 12/25/22 S/p TURP 04/18/23 - Path shows benign prostatic tissue with stromal hyperplasia Pt is currently taking Flomax 0.4mg qd and Finasteride 5mg. PVR at prior OV was 237mL. UA today negative for blood and infection. PSA 08/31/20 - 0.63 (Finasteride 1.26) 10/08/22 - 0.74 (Finasteride 1.58) Pt states that he does still experience urgency, has improved some since his TURP, varies on how bad it is. Advised pt that the healing process can take up to 3 mos and his bladder still has to get used to having the open channel. Counseled pt on how long it could take for his bladder to get used to the newly opened channel. Advised pt that if the urgency is still an issue at his next f/u, then we will discuss starting a bladder med. Advised pt to d/c the Tamsulosin and continue the Finasteride. Discussed path report with pt, negative. Advised pt to continue with his fluid intake and try to void every 2-3 hours during the day. Follow up in 3 mos. All questions/concerns were discussed. Pt to call the office if he encounters any issues prior. Pt acknowledges understanding. -D/c Tamsulosin. -Continue Finasteride as above. -Void every 2-3 hours during the day. -Increase fluid intake. 2. Urinary retention (R33.9: Retention of urine, unspecified) Pt states he is unable to make to the bathroom on occasion, experiencing leakage with urgency, has somewhat improved since his TURP. -See #1 3. Gross hematuria (R31.0: Gross hematuria) Pt states that he still has blood in his urine. Advised pt hat this can come and go during the healing process. Advised pt that when he experiences blood in his urine, he should decrease his activity and increase his water intake. Follow-up With When Contact Information DEANNA WADDELL, Elia Cardona, RAMON In 3 months [facility] [address], [place] [address]- Additional Instructions: Patient Education Benign Prostatic Hyperplasia I, Italia Redd , personally scribed for Dr. Huerta on 05/06/2023 11:54:05. . Documentation recorded by the scribe, Italia Redd, accurately reflects the services(s) I performed and decisions made by me. Problem List/Past Medical History Ongoing Asthma BPH with urinary obstruction Former smoker Generalized anxiety disorder Gross hematuria Hyperlipidemia Incontinence Moderate episode of recurrent major depressive disorder Nocturia Obstructive sleep apnea Post-void dribbling Prediabetes Urinary frequency Urinary retention Urinary urgency Historical Arthritis Asthma Procedure/Surgical History TURP - Transurethral resection of prostate (04/18/2023), Cystoscopy (12/25/2022), Urodynamics (12/25/2022), Nasal sinus procedure (02/2017), Excision of basal cell carcinoma (more content not included)... Normal [facility] Comment on above: Result Comment: Elec tronically Signed By: Elia HUERTA MD\.br\Date and Time Signed: 05/06/23 11:55 EST\.br\Electronically Co-Signed By: Italia Redd\.br\Date and Time Co-Signed: 05/06/23 11:54 EST Pathology Noteon 04-23-2023 Pathology Note [id number]#1.00 TIFF Normal [facility] Ambulatory Visit Summaryon 0 04-22-2023 Ambulatory Visit Summary RACHEL ACKERMAN :1950 Visit Date:04/22/2023 Ambulatory Visit Instructions Your Care Team Attending Physician - DEANNA WADDELL, Elia Cardona Primary Care Physician - PATRICA CRUZ CNP This Is Your Medications List acetaminophen (acetaminophen 500 mg Tab) albuterol (Ventolin HFA 90 mcg/inh Aerosol) atorvastatin (atorvastatin 80 mg Tab) busPIRone (busPIRone 30 mg oral tablet) ciprofloxacin (Cipro 500 mg Tab) ezetimibe (Zetia 10 mg Tab) ferrous sulfate (ferrous sulfate 325 mg Tab) finasteride (finasteride 5 mg Tab) fluticasone-vilanterol (Breo Ellipta 200 mcg-25 mcg/inh inhalation powder) sertraline (sertraline 100 mg Tab) tamsulosin (tamsulosin 0.4 mg Cap) Procedures Performed Cystoscopy (12/25/2022), Urodynamics (12/25/2022), Nasal sinus procedure (02/2017), Excision of basal cell carcinoma (08/2016), Cataract surgery (02/2016), Colonoscopy (2015), Arthroscopy of knee (06/2014), Pharyngeal operation for obstructive sleep apnea and snoring (1999), Tonsillectomy. What to do next Scheduled Follow-Up Appointments Saturday 10:45 AM EST With: DEANNA WADDELL, Elia Cardona Where: [facility] Operative Reporton Operative Report [id number]#1.0 0TIFF [facility] Consultation Noteon 04-16-19 24 Consultation Note [id number]#1.0 0TIFF [facility] XR chest 2V*on 04-13-2023 XR chest 2V* [facility] Main [place] [id number] XRay Report Signed Patient: Rachel Ackerman MR#: [id number] : 1950 Acct:[id number] Age/Sex: 72 / M ADM Date: 04/13/23 Loc: XD Room: Type: [facility] Attending Dr: Patrica Cruz DNP Copies [...] Douglas Wallace M.D.04/13/2023 2:02 PM Dictation Location: [place] [address] Transcribed By: [facility] 04/13/23 140 Dictated By: Douglas Wallace DO 04/13/23 1401 Signed By: 04/13/23 1402 [facility] HbA1c (Bld) [Mass fraction]o n 04-01-2023 A1C HEMOGLOBIN 6.7 [employer] Other A1C HEMOGLOBIN [employer] Other Lab Reportson 03-15-2023 Lab Reports [id number]#1.0 0TIFF [facility] CNOVSPon 02-20-2023 CNOVSP Visit (SP) Office ([place]) RACHEL ACKERMAN ([id number]) 1950 M Date Time Provider Department 02/20/23 10:45 AM KESHA CLIFTON During your visit today, we recorded the following information about you: Temperature Pulse Respiration Blood pressure 97.7 degrees 65/minute 16/minute 130/74 Weight Height 114.9 kg 1.778 m Kesha Clifton MD 02/20/2023 10:57 AM Signed PATIENT NAME: Rachel Ackerman CLINIC NO.: [id number] ATTENDING PHYSICIAN: Kesha Clifton MD DATE OF [...] Neut Date (more content not included)... Normal [facility] Consultation Noteon 02-08-20 Consultation Note [id number]#1.0 0TIFF Normal [facility] Lab Reportson 02-07-2023 Lab Reports [id number]#1.0 0TIFF Normal [facility] [place] 01-30-2023 [facility] Telephone ([facility]) RACHEL ACKERMAN ([id number]) 1950 M Date Time Provider Department 01/30/23 CRYSTAL COOLEY During your visit today, we recorded the following information about you: Crystal Cooley RN 01/30/2023 2:43 PM Signed Patient has called to report his TURP has moved back to 02/25. He would like to know if his follow up appt with [facility] should be moved to after the procedure. Discussed with Dr Clifton and no need to change appt dates. Patient notified and agrees with plan. He was encouraged to call with any questions or concerns Crystal Cooley RN Allergies As of Date: 01/30/2023 Noted Allergy Reaction CARDURA (DOXAZOSIN) 01/22/2023 10 - Anaphylaxis Date Reviewed: 01/23/2023 Reviewed by: Miguel July - Fully Assessed Reason for Visit: Patient Question [9967] Prescriptions as of 01/30/2023 - acetaminophen (TYLENOL) [...] Encounter Status:Closed by CRYSTAL COOLEY on 01/30/23 [facility] Domonique 01-28-2023 [facility] Telephone ([facility]) RACHEL ACKERMAN ([id number]) 1950 M Date Time Provider Department 01/28/23 [...] Crystal Cooley RN Triage please fax to [phone] or call [phone] c/o Kesha Hackett MD 01/28/2023 2:23 PM [...] progress note as requested per BERNARDINO please [facility]/28/2023 3:07 PM Signed Office note faxed to Dr. Huerta. Allergies As of Date: 01/28/2023 Noted Allergy Reaction CARDURA (DOXAZOSIN) 01/22/2023 10 - Anaphylaxis Date Reviewed: 01/23/2023 Reviewed by: Miguel Chel - Fully Assessed Reason for Visit: Patient [...] Status:Closed by CRYSTAL COOLEY on 01/28/23 Normal [facility] CBC W Auto Differential pane l (Bld)on 01-23-2023 Basophils (Bld) [#/Vol] 0.08 10*3/uL Normal <0.11 [facility] Comment on above: Order Comment: Speci men Type: BLOOD SPECIMENOrdering Facility: [facility] Address: [address] [place] [address] Performed By: #### 5 7021-8 ####[facility] LABCLIA [id number] [place] [address] Basophils/100 WBC (Bld) 1.1 % Normal [facility] Comment on above: Order Comment: Speci men Type: BLOOD SPECIMENOrdering Facility: [facility] Address: [address] [place] [address] Performed By: #### 5 7021-8 ####[facility] LABCLIA [id number] [place] [address] Differential cell count method Nom (Bld) Auto Normal [facility] Comment on above: Order Comment: Speci men Type: BLOOD SPECIMENOrdering Facility: [facility] Address: [address] [place] [address] Performed By: #### 5 7021-8 ####[facility] LABCLIA [id number] [place] [address] Eosinophils (Bld) [#/Vol] 0.12 10*3/uL Normal <0.46 [facility] Comment on above: Order Comment: Speci men Type: BLOOD SPECIMENOrdering Facility: [facility] Address: [address] [place] [address] Performed By: #### 5 7021-8 ####[facility] LABCLIA [id number] [place] [address] Eosinophils/100 WBC (Bld) 1.6 % Normal [facility] Comment on above: Order Comment: Speci men Type: BLOOD SPECIMENOrdering Facility: [facility] Address: [address] [place] [address] Performed By: #### 5 7021-8 ####[facility] LABCLIA [id number] [place] [address] Erythrocyte distribution width (RBC) [Ratio] 13.5 % Normal 11.5-15.0 [facility] Comment on above: Order Comment: Speci men Type: BLOOD SPECIMENOrdering Facility: [facility] Address: [address] [place] [address] Performed By: #### 5 7021-8 ####[facility] LABCLIA [id number] [place] [address] Hematocrit (Bld) [Volume fraction] 44.7 % Normal 39.0-51.0 [facility] Comment on above: Order Comment: Speci men Type: BLOOD SPECIMENOrdering Facility: [facility] Address: [address] [place] [address] Performed By: #### 5 7021-8 ####[facility] LABCLIA [id number] [place] [address] Hemoglobin (Bld) [Mass/Vol] 15.4 g/dL Normal 13.0-17.0 [facility] Comment on above: Order Comment: Speci men Type: BLOOD SPECIMENOrdering Facility: [facility] Address: [address] [place] [address] Performed By: #### 5 7021-8 ####[facility] LABCLIA [id number] [place] [address] Immature granulocytes (Bld) [#/Vol] 0.04 10*3/uL Normal <0.10 [facility] Comment on above: Order Comment: Speci men Type: BLOOD SPECIMENOrdering Facility: [facility] Address: [address] [place] [address] Performed By: #### 5 7021-8 ####[facility] LABCLIA [id number] [place] [address] Immature granulocytes/100 WBC (Bld) 0.5 % Normal [facility] Comment on above: Order Comment: Speci men Type: BLOOD SPECIMENOrdering Facility: [facility] Address: [address] [place] [address] Performed By: #### 5 7021-8 ####[facility] LABCLIA [id number] [place] [address] Lymphocytes (Bld) [#/Vol] 2.40 10*3/uL Normal 1.00-4.00 [facility] Comment on above: Order Comment: Speci men Type: BLOOD SPECIMENOrdering Facility: [facility] Address: [address] [place] [address] Performed By: #### 5 7021-8 ####[facility] LABCLIA [id number] [place] [address] Lymphocytes/100 WBC (Bld) 31.6 % Normal [facility] Comment on above: Order Comment: Speci men Type: BLOOD SPECIMENOrdering Facility: [facility] Address: [address] [place] [address] Performed By: #### 5 7021-8 ####[facility] LABCLIA [id number] [place] [address] MCH (RBC) [Entitic mass] 28.7 pg Normal 26.0-34.0 [facility] Comment on above: Order Comment: Speci men Type: BLOOD SPECIMENOrdering Facility: [facility] Address: [address] [place] [address] Performed By: #### 5 7021-8 ####[facility] LABCLIA [id number] [place] [address] MCHC (RBC) [Mass/Vol] 34.5 g/dL Normal 30.5-36.0 [facility] Comment on above: Order Comment: Speci men Type: BLOOD SPECIMENOrdering Facility: [facility] Address: [address] [place] [address] Performed By: #### 5 7021-8 ####[facility] LABCLIA [id number] [place] [address] MCV (RBC) [Entitic vol] 83.2 fL Normal 80.0-100.0 [facility] Comment on above: Order Comment: Speci men Type: BLOOD SPECIMENOrdering Facility: [facility] Address: [address] [place] [address] Performed By: #### 5 7021-8 ####[facility] LABCLIA [id number] [place] [address] Monocytes (Bld) [#/Vol] 0.60 10*3/uL Normal <0.87 [facility] Comment on above: Order Comment: Speci men Type: BLOOD SPECIMENOrdering Facility: [facility] Address: [address] [place] [address] Performed By: #### 5 7021-8 ####[facility] LABCLIA [id number] [place] [address] Monocytes/100 WBC (Bld) 7.9 % Normal [facility] Comment on above: Order Comment: Speci men Type: BLOOD SPECIMENOrdering Facility: [facility] Address: [address] [place] [address] Performed By: #### 5 7021-8 ####[facility] LABCLIA [id number] [place] [address] Neutrophils (Bld) [#/Vol] 4.36 10*3/uL Normal 1.45-7.50 [facility] Comment on above: Order Comment: Speci men Type: BLOOD SPECIMENOrdering Facility: [facility] Address: [address] [place] [address] Performed By: #### 5 7021-8 ####[facility] LABCLIA [id number] [place] [address] Neutrophils/100 WBC (Bld) 57.3 % Normal [facility] Comment on above: Order Comment: Speci men Type: BLOOD SPECIMENOrdering Facility: [facility] Address: [address] [place] [address] Performed By: #### 5 7021-8 ####[facility] LABCLIA [id number] [place] [address] Nucleated RBC (Bld) [#/Vol] 10*3/uL Normal <0.01 [facility] Comment on above: Order Comment: Speci men Type: BLOOD SPECIMENOrdering Facility: [facility] Address: [address] [place] [address] Performed By: #### 5 7021-8 ####[facility] LABCLIA [id number] [place] [address] Nucleated RBC/100 WBC (Bld) [Ratio] 0.0 /100 WBC Normal [facility] Comment on above: Order Comment: Speci men Type: BLOOD SPECIMENOrdering Facility: [facility] Address: [address] [place] [address] Performed By: #### 5 7021-8 ####[facility] LABCLIA [id number] [place] [address] Platelet mean volume (Bld) [Entitic vol] 9.2 fL Normal 9.0-12.7 [facility] Comment on above: Order Comment: Speci men Type: BLOOD SPECIMENOrdering Facility: [facility] Address: [address] [place] [address] Performed By: #### 5 7021-8 ####[facility] LABCLIA [id number] [place] [address] Platelets (Bld) [#/Vol] 128 10*3/uL Low 150-400 [facility] Comment on above: Order Comment: Speci men Type: BLOOD SPECIMENOrdering Facility: [facility] Address: [address] [place] [address] Performed By: #### 5 7021-8 ####[facility] LABIA [id number] [place] [address] RBC (Bld) [#/Vol] 5.37 10*6/uL Normal 4.20-6.00 [facility] Comment on above: Order Comment: Speci men Type: BLOOD SPECIMENOrdering Facility: [facility] Address: [address] [place] [address] Performed By: #### 5 7021-8 ####[facility] LABIA [id number] [place] [address] WBC (Bld) [#/Vol] 7.60 10*3/uL Normal 3.70-11.00 [facility] Comment on above: Order Comment: Speci men Type: BLOOD SPECIMENOrdering Facility: [facility] Address: [address] [place] [address] Performed By: #### 5 7021-8 ####[facility] LABIA [id number] [place] [address] CNOVSPon 01-23-2023 CNOVSP Visit (SP) Office ([place]) RACHEL ACKERMAN ([id number]) 1950 M Date Time Provider Department 01/23/23 12:00 PM KESHA CLIFTON During your visit today, we recorded the following information about you: Temperature Pulse Respiration Blood pressure 97.6 degrees 65/minute 18/minute 137/76 Weight Height 114.3 kg 1.778 m Kesha Clifton MD 01/23/2023 12:34 PM Signed PATIENT NAME: Rachel Ackerman CLINIC NO.: [id number] ATTENDING PHYSICIAN: Kesha Clifton MD DATE OF [...] are intact. (more content not included)... Normal [facility] metabolic 2000 panelon 01-23-2023 Albumin [Mass/Vol] 4.7 g/dL Normal 3.9-4.9 [facility] Comment on above: Order Comment: Speci men Type: BLOOD SPECIMENOrdering Facility: [facility] Address: [address] [place] [address] Performed By: #### 2 4323-8, 2532-0 ####[facility] LABCLIA [id number] [place] [address] [place] ALP [Catalytic activity/Vol] 97 U/L Normal 38-113 [facility] Comment on above: Order Comment: Speci men Type: BLOOD SPECIMENOrdering Facility: [facility] Address: [address] [place] [address] Performed By: #### 2 4323-8, 2531-0 ####[facility] LABCLIA [id number] [place] [address] [place] ALT [Catalytic activity/Vol] 38 U/L Normal 10-54 [facility] Comment on above: Order Comment: Speci men Type: BLOOD SPECIMENOrdering Facility: [facility] Address: [address] [place] [address] Performed By: #### 2 432-8, 2531-0 ####[facility] LABCLIA [id number] [place] [address] [place] Anion gap [Moles/Vol] 13 mmol/L Normal 9-18 [facility] Comment on above: Order Comment: Speci men Type: BLOOD SPECIMENOrdering Facility: [facility] Address: [address] [place] [address] Performed By: #### 2 4323-8, 2531-0 ####[facility] LABCLIA [id number] [place] [id number] [place] AST [Catalytic activity/Vol] 29 U/L Normal 14-40 [facility] Comment on above: Order Comment: Speci men Type: BLOOD SPECIMENOrdering Facility: [facility] Address: [address] [place] [address] Performed By: #### 2 4328, 2531-0 ####[facility] LABCLIA [id number] [place] [address] [place] Bilirubin [Mass/Vol] 1.3 mg/dL Normal 0.2-1.3 [facility] Comment on above: Order Comment: Speci men Type: BLOOD SPECIMENOrdering Facility: [facility] Address: [address] [place] [address] Performed By: #### 2 4328, 2531-0 ####[facility] LABCLIA [id number] [place] [address] [place] Calcium [Mass/Vol] 9.0 mg/dL Normal 8.5-10.2 [facility] Comment on above: Order Comment: Speci men Type: BLOOD SPECIMENOrdering Facility: [facility] Address: [address] [place] [address] Performed By: #### 2 4328, 2531-0 ####[facility] LABCLIA [id number] [place] [address] [place] Chloride [Moles/Vol] 103 mmol/L Normal 97-105 [facility] Comment on above: Order Comment: Speci men Type: BLOOD SPECIMENOrdering Facility: [facility] Address: [address] [place] [address] Performed By: #### 2 4328, 2531-0 ####[facility] LABCLIA [id number] [place] [id number] [place] CO2 [Moles/Vol] 23 mmol/L Normal 22-30 [facility] Comment on above: Order Comment: Speci men Type: BLOOD SPECIMENOrdering Facility: [facility] Address: [address] [place] [address] Performed By: #### 2 4328, 2531-0 ####[facility] LABCLIA [id number] [place] [address] [place] Creatinine [Mass/Vol] 0.98 mg/dL Normal 0.73-1.22 [facility] Comment on above: Order Comment: Alana morris Type: BLOOD SPECIMENOrdering Facility: [facility] Address: [address] [place] [address] Performed By: #### 2 4323-8, 2531-0 ####[facility] [id number] [address] Creatinine and Glomerular filtration rate.predicted panel (S/P/Bld) 82 mL/min/1.73m??? Normal >=60 [facility] Comment on above: Order Comment: Alana morris Type: BLOOD SPECIMENOrdering Facility: [facility] Address: [address] [place] [address] Result Comment: Maureen mated Glomerular Filtration Rate [...] GFR. Performed By: #### 2 4323-8, 0 ####[facility] [id number] [place] [address] [place] Glucose [Mass/Vol] 89 mg/dL Normal 74-99 [facility] Comment on above: Order Comment: Alana morris Type: BLOOD SPECIMENOrdering Facility: [facility] Address: [address] [place] [address] Result Comment: The [place] [employer] (ADA) provides guidance for cutoff [...] Standards of Medical Care in Diabetes 2016, [place] [employer]. Diabetes Care. 2016.39(Suppl 1). Performed By: #### 2 4328, 0 ####[facility] LABCLIA [id number] [address] [address] [place] Potassium [Moles/Vol] 4.2 mmol/L Normal 3.7-5.1 [facility] Comment on above: Order Comment: Speci men Type: BLOOD SPECIMENOrdering Facility: [facility] Address: [address] [place] [address] Performed By: #### 2 43206-20, ####[facility] LABCLIA [id number] [place] [address] [place] Protein [Mass/Vol] 6.9 g/dL Normal 6.3-8.0 [facility] Comment on above: Order Comment: Speci men Type: BLOOD SPECIMENOrdering Facility: [facility] Address: [address] [place] [address] Performed By: #### 2 43206-20, ####[facility] LABCLIA [id number] [place] [address] [place] Sodium [Moles/Vol] 139 mmol/L Normal 136-144 [facility] Comment on above: Order Comment: Speci men Type: BLOOD SPECIMENOrdering Facility: [facility] Address: [address] [place] [address] Performed By: #### 2 43206-20, ####[facility] LABCLIA [id number] [address] [address] [place] Urea nitrogen [Mass/Vol] 15 mg/dL Normal 9-24 [facility] Comment on above: Order Comment: Speci men Type: BLOOD SPECIMENOrdering Facility: [facility] Address: [address] [place] [address] Performed By: #### 2 4323-8, 2532-0 ####[facility] LABCLIA [id number] [place] [address] [place] Ferritin SerPl-mCncon 2022 Ferritin [Mass/Vol] 306.0 ng/mL Normal 30.3-565.7 [facility] Comment on above: Order Comment: Speci men Type: BLOOD SPECIMEN [facility] Address: [address] [place] [address] Performed By: #### 2 276-4, 33248-9 #### [facility] CLIA [id number] [address] [place] [address] [place] Folate SerPl-mCncon 01-24-20 Folate [Mass/Vol] 11.3 ng/mL Normal >4.7 [facility] Comment on above: Order Comment: Speci men Type: BLOOD SPECIMENOrdering Facility: [facility] Address: [address] [place] [address] Performed By: #### 2 885-2, 2132-9, 2284-8 ####[facility] LABCLIA [id number] [place] [address] [place] HBV core Ab Ser Qlon 023 HBV core Ab Ql (S) Negative Normal Negative [facility] Comment on above: Order Comment: Speci men Type: BLOOD SPECIMENOrdering Facility: [facility] Address: [address] [place] [address] Result Comment: No e vidence of current or past infection with Hepatitis B virus. Should recent infection be suspected, repeat testing may be considered 3-4 weeks after this draw. Performed By: #### 2 2322-2, 03590-9, 5195-3 ####[facility] LABCLIA [id number] [address] [id number] [address] [place] HBV surface Ab Ql (S)on 01-13 HBV surface Ab Qn (S) <8.00 Normal [facility] Comment on above: Order Comment: Speci men Type: BLOOD SPECIMENOrdering Facility: [facility] Address: [address] [place] [address] Result Comment: <8 m IU/mL: No serological evidence of immunity to Hepatitis B Virus. >/= 8 to <12 mIU/mL: No serological evidence of immunity to Hepatitis B Virus. >/= 12 mIU/mL: Consistent with serological evidence of immunity to Hepatitis B Virus. Performed By: #### 2 2322-2, 48717-6, 5195-3 ####[facility] LABIA [id number] [address] [place] HBV surface Ab Ser Qlon 01-13 HBV surface Ab Ql (S) Negative Normal [facility] Comment on above: Order Comment: Speci men Type: BLOOD SPECIMENOrdering Facility: [facility] Address: [address] [place] [address] Result Comment: No s erological evidence of immunity to Hepatitis B Virus. Performed By: #### 2 2322-2, 19056-4, 5195-3 ####[facility] LABIA [id number] [address] [place] HBV surface Ag Ser Qlon 01-13 HBV surface Ag Ql (S) Negative Normal Negative [facility] Comment on above: Order Comment: Speci men Type: BLOOD SPECIMENOrdering Facility: [facility] Address: [address] [place] [address] Performed By: #### 2 2322-2, 72215-7, 5195-3 ####[facility] LABIA [id number] [place] [address] [place] HCV Ab Ser Qlon 01-23-2023 HCV Ab Ql (S) Negative Normal Negative [facility] Comment on above: Order Comment: Speci men Type: BLOOD SPECIMENOrdering Facility: [facility] Address: [address] [place] [address] Result Comment: The result suggests no evidence of active infection with Hepatitis C virus. Should recent infection be suspected, repeat testing may be considered 4-6 weeks after this draw. Performed By: #### 1 6128-1 ####[facility] LABCLIA [id number] [address] STATES OF [facility] IMMUNOFIXATION SCREEN, SERUM on 01-23-2023 MPA RESULT No M protein is identified. Normal No M protein is identified. [facility] Comment on above: Order Comment: Speci men Type: BLOOD SPECIMENOrdering Facility: [facility] Address: [address] [place] [address] Performed By: #### I FESC ####[facility] LABCLIA [id number] [address] [place] STAFF REVIEW (MPA) Reviewed by Guerline Swift MD [facility] Comment on above: Order Comment: Speci men Type: BLOOD SPECIMENOrdering Facility: [facility] Address: [address] [place] [address] Performed By: #### I FES ####[facility] LABCLIA [id number] [place] [address] [place] IMMUNOGLOBULINS GAMon 2022 IgA [Mass/Vol] 217 mg/dL Normal 70-400 [facility] Comment on above: Order Comment: Speci men Type: BLOOD SPECIMENOrdering Facility: [facility] Address: [address] [place] [address] Performed By: #### S ERIMM ####[facility] LABCLIA [id number] [place] [address] [place] IgG [Mass/Vol] 816 mg/dL Normal 700-1600 [facility] Comment on above: Order Comment: Speci men Type: BLOOD SPECIMENOrdering Facility: [facility] Address: [address] [place] [address] Performed By: #### S ERIMM ####[facility] LABCLIA [id number] [place] [address] [place] IgM [Mass/Vol] 37 mg/dL Low 40-230 [facility] Comment on above: Order Comment: Speci men Type: BLOOD SPECIMENOrdering Facility: [facility] Address: [address] [place] [address] Performed By: #### S ERIMM ####[facility] LABCLIA [id number] [place] [address] [place] Iron and Iron binding capaci ty panelon 01-23-2023 Iron [Mass/Vol] 82 ug/dL Normal 41-186 [facility] Comment on above: Order Comment: Speci men Type: BLOOD SPECIMEN [facility] Address: [address] [place] [address] Performed By: #### 2 276-4, 57161-3 #### [facility] CLIA [id number] [facility] [place] [address] [place] Iron binding capacity [Mass/Vol] 374 ug/dL Normal 232-386 [facility] Comment on above: Order Comment: Speci men Type: BLOOD SPECIMEN [facility] Address: [address] [place] [address] Performed By: #### 2 276-4, 72712-9 #### [facility] CLIA [id number] [facility] [place] [address] [place] Iron/TIBC [Molar ratio] 21.9 % Normal 15.0-57.0 [facility] Comment on above: Order Comment: Speci men Type: BLOOD SPECIMEN [facility] Address: [address] [place] [address] Performed By: #### 2 276-4, 58949-9 #### [facility] CLIA [id number] [address] [place] [address] [place] KAPPA/DIAZ,FREE,SERon 2022 Immunoglobulin light chains.kappa.free (S) [Mass/Vol] 16.8 mg/L Normal 3.3-19.4 [facility] Comment on above: Order Comment: Alana arturo Type: BLOOD SPECIMEN [facility] Address: [address] [place] [address] Result Comment: Rare ly, increased serum free light chains levels may not be detected or accurately quantified due to prozone phenomenon or in high viscosity samples using this immunoturbidimetric assay. Correlation with other laboratory results and clinical findings is recommended. The [place] Free Light Chain was performed using the Binding Site Optilite immunoturbidimetric method. Result obtained with different assay methods or kits cannot be used interchangeably. Performed By: #### K LFRS #### [facility] CLIA [id number] [address] [place] [address] [place] Immunoglobulin light chains.kappa/Immuno globulin light chains.lambda (S) [Mass ratio] 1.62 Normal 0.26-1.65 [facility] Comment on above: Order Comment: Alana arturo Type: BLOOD SPECIMEN [facility] Address: [address] [place] [address] Performed By: #### K LFRS #### [facility] CLIA [id number] [address] [place] [address] [place] Immunoglobulin light chains.lambda.free [Mass/Vol] 10.4 mg/L Normal 5.7-26.3 [facility] Comment on above: Order Comment: Tin[place] morris Type: BLOOD SPECIMEN [facility] Address: [address] [place] [address] Result Comment: Rare ly, increased serum free [...] interchangeably. Performed By: #### K LFRS #### [facility] CLIA [id number] [address] [place] [id number] [place] LDH SerPl-cCncon 01-23-2023 LDH [Catalytic activity/Vol] 255 U/L High 135-225 [facility] Comment on above: Order Comment: Speci men Type: BLOOD SPECIMENOrdering Facility: [facility] Address: [address] [place] [address] Performed By: #### 2 4323-8, 2532-0 ####[facility] LABCLIA [id number] [place] [address] [place] PROTEIN ELECTROPHORESIS SERU M (P)on 01-23-2023 Albumin [Mass/Vol] 4.57 g/dL Normal 3.43-5.41 [facility] Comment on above: Order Comment: Speci men Type: BLOOD SPECIMENOrdering Facility: [facility] Address: [address] [place] [address] Performed By: #### L [id number] ####[facility] LABCLIA [id number] [place] [address] [place] Alpha 1 globulin Elph [Mass/Vol] 0.27 g/dL Normal 0.18-0.43 [facility] Comment on above: Order Comment: Speci men Type: BLOOD SPECIMENOrdering Facility: [facility] Address: [address] [place] [address] Performed By: #### L [id number] ####[facility] LABCLIA [id number] [place] [id number] [place] Alpha 2 globulin Elph [Mass/Vol] 0.66 g/dL Normal 0.42-0.98 [facility] Comment on above: Order Comment: Speci men Type: BLOOD SPECIMENOrdering Facility: [facility] Address: [address] [place] [address] Performed By: #### L [id number] ####[facility] LABCLIA [id number] [address] [address] [place] Beta globulin Elph [Mass/Vol] 0.79 g/dL Normal 0.61-1.17 [facility] Comment on above: Order Comment: Speci men Type: BLOOD SPECIMENOrdering Facility: [facility] Address: [address] [place] [address] Performed By: #### L [id number] ####[facility] LABCLIA [id number] [place] [address] [place] Gamma globulin Elph [Mass/Vol] 0.61 g/dL Normal 0.53-1.51 [facility] Comment on above: Order Comment: Speci men Type: BLOOD SPECIMENOrdering Facility: [facility] Address: [address] [place] [address] Performed By: #### L [id number] ####[facility] LABCLIA [id number] [place] [address] [place] M-PROTEIN LOCATION Normal [facility] Comment on above: Order Comment: Speci men Type: BLOOD SPECIMENOrdering Facility: [facility] Address: [address] [place] [address] Result Comment: Not Applicable. Performed By: #### L [id number] ####[facility] LABCLIA [id number] [place] [address] [place] Protein Fractions [Interp] No definitive M protein is identified on protein electrophoresis. Normal No definitive M protein is identified on protein electrophores is. [facility] Comment on above: Order Comment: Speci men Type: BLOOD SPECIMENOrdering Facility: [facility] Address: [address] [place] [address] Performed By: #### L [id number] ####[facility] LABCLIA [id number] [place] [address] [place] Protein.monoclonal Elph [Mass/Vol] 0.00 g/dL Normal <=0.00 [facility] Comment on above: Order Comment: Speci men Type: BLOOD SPECIMENOrdering Facility: [facility] Address: [address] [place] [address] Performed By: #### L [id number] ####[facility] LABCLIA [id number] [place] [address] [place] SPE STAFF REVIEW Reviewed by Guerline Swift MD [facility] Comment on above: Order Comment: Speci men Type: BLOOD SPECIMENOrdering Facility: [facility] Address: [address] [place] [address] Performed By: #### L [id number] ####[facility] LABCLIA [id number] [place] [address] [place] Prot [facility] 01-23-2023 Protein [Mass/Vol] 6.7 g/dL Normal 6.3-8.0 [facility] Comment on above: Order Comment: Speci men Type: BLOOD SPECIMEN [facility] Address: [address] [place] [address] Performed By: #### 2 885-2, 2-9, 2284-8 #### [facility] CLIA [id number] [address] [place] [address] [place] Vit B12 SerP-ncon 023 Cobalamin (Vitamin B12) [Mass/Vol] 516 pg/mL Normal 232-1245 [facility] Comment on above: Order Comment: Speci men Type: BLOOD SPECIMEN [facility] Address: [address] [place] [address] Performed By: #### 2 885-2, 2131-9, 2284-8 #### [facility] CLIA [id number] [facility] [place] [id number] [place] Lab Reportson 01-21-2023 Lab Reports [id number]#1.0 0TIFF Normal [facility] Formson 01-18-2023 Forms [id number]#1. 00TIFF [facility] ECG 12-Leadon 01-16-2023 ECG 12-Lead [id number] 00 [id number]#1.0 0CD:127 [facility] Lab Reportson 01-16-2023 Lab Reports [id number]#1.0 0CD:127 [facility] Lab Reports [id number]#1.0 0CD:127 [facility] Consent for Procedure/Surger yon 12-28-2022 Consent for Procedure/Surgery [id number]#1. 00CD:127 [facility] Consent for Procedure/Surger yon 12-26-2022 Consent for Procedure/Surgery [id number]#1. 00CD:127 [facility] IntraOperative Documentson 0 12-26-2022 IntraOperative Documents [id number]#1. 00CD:127 [facility] IntraOperative Documents [id number]#1. 00CD:127 [facility] Outpatient Surgery Discharge Instructionon 12-26-2022 Outpatient Surgery Discharge Instruction [id number]#1. 00CD:127 [facility] Consent for Treatmenton 12-14 Consent for Treatment [id number]#1.0 0CD:127 [facility] Main OR Intraoperative Recor don 12-25-2022 Main OR Intraoperative Record IntraOp Document Type FTURO Summary Primary Physician: Elia HUERTA MD Finalized Date/Time: 12/25/22 16:59:16 Pt. Name: RACHEL ACKERMAN/Sex: 1950 Male Med Rec #: [id number] Physician: Elia HUERTA MD Financial #: [id number] Pt. Type: O Room/Bed: / Admit/Disch: 12/25/22 14:41:50 - Institution: Case Times FTURO Entry 1 Patient Times In Room 12/25/22 16:50:00 Out Room 12/25/22 17:03:00 Procedure Times Start 12/25/22 16:55:00 Stop 12/25/22 16:58:00 Anesthesia Times Last Modified By: Jihan Rader RN 12/25/22 16:59:06 Case Attendance FTURO Entry 1 Entry 2 Entry 3 Case Attendee DEANNA WADDELL, Elia Rader RN, Kinza Pena CST Role Performed Surgeon - Primary Speed Reading Teacher - Primary Scrub - Primary Time In [...] Position Verified Availability Equipment, Medication Time Out Elia HUERTA MD, Verified (If Participants Jihan Rader RN, Applicable) [...] By: Jihan Rader RN 12/25/22 16:59 Normal [facility] Main OR Preoperative Recordo n 12-25-2022 Main OR Preoperative Record Holding Area Document Type FTURO Summary Primary Physician: Elia HUERTA MD Finalized Date/Time: 12/25/22 16:18:39 Pt. Name: RACHEL ACKERMAN /Sex: 1950 Male Med Rec #: [id number] Physician: Elia HUERTA MD Financial #: [id number] Pt. Type: O Room/Bed: / Admit/Disch: 12/25/22 [...] By: Kinza Pulliam RN 12/25/22 16:18 Normal [facility] Operative Reporton Operative Report Patient: RACHEL [...] up arranged. Plan for a TURP.. 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 / Confirmed Asthma / SNOMED CT 394500162 / Confirmed Moderate episode of recurrent major depressive disorder / SNOMED CT 423631248 / Confirmed Generalized anxiety disorder / SNOMED CT 72351905 / Confirmed Prediabetes / SNOMED CT 9521848635 / Confirmed Urinary retention / SNOMED CT 340721205 / Confirmed Nocturia / SNOMED CT 038698049 / Confirmed Urinary urgency / SNOMED CT 350772182 / Confirmed Post-void dribbling / SNOMED CT 050978215 / Confirmed Incontinence / SNOMED CT 70231283 / Confirmed Urinary frequency / SNOMED CT 331263007 / Confirmed Former smoker / SNOMED CT 95302932 / Confirmed Histories Past Medical History: Resolved Arthritis (3912568): Resolved. Asthma (472779187): Resolved. Family History: Hypertension Father () Alcoholism Father () Primary malignant neoplasm of bone Sister () Heart disease Father () Mother () Procedure history: Nasal sinus procedure (3203527749) in the month of 02/2017 at 66 Years. Excision of basal cell carcinoma- Left ear (553604093) in the month of 08/2016 at 65 Years. Cataract surgery (099044216) in the month of 02/2016 at 65 Years. Colonoscopy (490045321) in 2016 at 65 Years. Arthroscopy of knee- Right (817782737) in the month of 06/2014 at 63 Years. Pharyngeal operation for obstructive sleep apnea and snoring (422456631) in 1999 at 49 Years. Tonsillectomy (288399164). Social History Social & Psychosocial Habits Tobacco [...] him scheduled for TURP under anesthesia. Normal [facility] Comment on above: Result Comment: Elec tronically Signed By: DEANNA WADDELL, Elia Cardona\.br\Date and Time Signed: 12/25/22 17:07 EDT Consent for Procedure/Surger yon 11-13-2022 Consent for Procedure/Surgery [id number]#1.0 0CD:127 Normal [facility] Ambulatory Visit Summaryon 0 11-12-2022 Ambulatory Visit Summary RACHEL ACKERMAN :1950 Visit Date:11/12/2022 Ambulatory Visit Instructions Your Diagnosis BPH with urinary obstruction Urinary urgency Tests Performed Urnls Dip Stick Auto w/o Microscopy POC 30283 Your Care Team Attending Physician - Elia [...] operation for obstructive sleep apnea and snoring (2000), Tonsillectomy. What to do next You Need to Schedule the Following Appointments Follow Up with DEANNA WADDELL, RAMON Berumen When: Comments: sched urodynamics and cysto Where: [facility] [address], [place] [address] [phone] Medications What How Much When Instructions Unchanged [...] Urnls Dip Stick Auto w/o Microscopy POC 50819 (11/12/2022) Bilirubin Urine Dipstick - Negative Blood Urine Dipstick - Negative Glucose Urine Dipstick - Negative Ketones Urine Dipstick - Negative Leukocytes Urine Dipstick - Negative Nitrite Urine Dipstick - Negative Protein Urine Dipstick - Negative Specific [place] Urine Dipstick - 1.010 Urine Appearance Urine [...] including vitamins, herbs, eye drops, creams, and xaxv-iqo-lpnamll medicines. ? Any problems you or family members have had with anesthetic medicines. ? Any bleeding problems you have. ? Any surgeries you have had. ? Any medical conditions you have. ? Any prostate infections you have had. What are the risks? Generally, this is a safe procedure. However, problems may occur, including: ? Infection. ? Bleeding. ? (more content not included)... Normal [facility] Patient Educationon 11-13-19 Patient Education Urology Transurethral Resection of the [...] including vitamins, herbs, eye drops, creams, and fiew-enu-jcxyjji medicines. ? Any problems you or family [...] tells you to take them. ? Taking dagr-cef-sciasmz medicines, vitamins, herbs, and supplements. Surgery safety [...] health care (more content not included)... Normal [facility] Urology Office/Clinic Noteon 11-12-2022 Urology Office/Clinic [...] with urgency. Follow-up With When Contact Information DAENNA WADDELL, Elia Cardona, URL [facility] [address], [place] [address] [phone] Additional Instructions: sched urodynamics and cysto Patient [...] Aerosol, Inhalat (more content not included)... Normal [facility] Comment on above: Result Comment: Elec tronically Signed By: Mary Gibson\Date and Time Signed: 11/12/22 13:54 EDT A1C HEMOGLOBINon 09-27-2022 HbA1c (Bld) [Mass fraction] 6.0 % [employer] Other HbA1c (Bld) [Mass fraction]o n 09-27-2022 A1C HEMOGLOBIN [employer] Other A1C HEMOGLOBINon 02-26-2022 HbA1c (Bld) [Mass fraction] 5.6 % [employer] Other HbA1c (Bld) [Mass fraction]o n 02-26-2022 A1C HEMOGLOBIN [employer] Other HbA1c (Bld) [Mass fraction]o n 08-24-2021 A1C HEMOGLOBIN 6.1 [employer] Other A1C HEMOGLOBIN [employer] Other A1C HEMOGLOBINon 02-22-2021 HbA1c (Bld) [Mass fraction] 5.9 % [employer] Other HbA1c (Bld) [Mass fraction]o n 02-22-2021 A1C HEMOGLOBIN [employer] Other CBC AUTO DIFFon 09-02-2020 BASO # 0.1 103/ul Normal 0.0-0.1 [facility] Comment on above: Performed By: #### C BC #### [facility] [address] [place] [address] Martha Naye Basophils/100 WBC (Bld) 1.2 % Normal 0.2-2.0 [facility] Comment on above: Performed By: #### C BC #### [facility] [address], [place] [address] Martha Naye EO # 0.2 103/ul Normal 0.0-0.7 [facility] Comment on above: Performed By: #### C BC #### [facility] [address], [place] [address] Martha Naye Eosinophils/100 WBC (Bld) 2.4 % Normal 0.9-7.0 [facility] Comment on above: Performed By: #### C BC #### [facility] [address] [place] [address] Martha Yancey Erythrocyte distribution width (RBC) [Ratio] 13.1 % Normal 11.0-15.0 [facility] Comment on above: Performed By: #### C BC #### [facility] [address] [place] [address] Martha Yancey Hematocrit (Bld) [Volume fraction] 45.5 % Normal 42.0-54.0 [facility] Comment on above: Performed By: #### C BC #### [facility] [address] [place] [address] Martha Yancey Hemoglobin (Bld) [Mass/Vol] 15.6 g/dL Normal 14.0-18.0 [facility] Comment on above: Performed By: #### C BC #### [facility] [address] [place] [address] Marthajosué Yancey IG # 0.08 10e3/ul Critically high 0.00-0.03 [facility] Comment on above: Performed By: #### C BC #### [facility] [address] [place] [address] Martha Yancey IG % 1.1 % Critically high 0.0-0.5 [facility] Comment on above: Performed By: #### C BC #### [facility] [address] [place] [address] Marthajosué Yancey LYMPH # 2.7 103/ul Normal 1.2-3.8 [facility] Comment on above: Performed By: #### C BC #### [facility] [address] [place] [address] Martha Yancey Lymphocytes/100 WBC (Bld) 35.8 % Normal 20.5-60.0 [facility] Comment on above: Performed By: #### C BC #### [facility] [address] [place] [address] Martha Yancey MANUAL DIFF REQ NO Normal [facility] Comment on above: Performed By: #### C BC #### [facility] [address], [place] [address] Marthajosué Yancey MCH (RBC) [Entitic mass] 29.4 pg Normal 25.9-34.0 [facility] Comment on above: Performed By: #### C BC #### [facility] [address], [place] [address] Marthajosué Yancey MCHC (RBC) [Mass/Vol] 34.3 g/dL Normal 29.9-35.2 [facility] Comment on above: Performed By: #### C BC #### [facility] [address] [place] [id number] Martha Yancey MCV (RBC) [Entitic vol] 85.7 fL Normal 80.0-94.0 [facility] Comment on above: Performed By: #### C BC #### [facility] [address] [place], [place] [address] Martha Yancey MONO # 0.6 103/ul Normal 0.3-0.8 [facility] Comment on above: Performed By: #### C BC #### [facility] [address] [place] [id number] Martha Yancey Monocytes/100 WBC (Bld) 7.4 % Normal 1.7-12.0 [facility] Comment on above: Performed By: #### C BC #### [facility] [address] [place] [id number] Marthajosué Maldonadoen NEUT # 3.9 103/ul Normal 1.4-6.5 [facility] Comment on above: Performed By: #### C BC #### [facility] [address] [place], [place] [address] Martha Yancey Neutrophils/100 WBC (Bld) 52.1 % Normal 43.0-75.0 [facility] Comment on above: Performed By: #### C BC #### [facility] [address], [place] [address] Marthajosué Yancey Platelet mean volume (Bld) [Entitic vol] 9.1 fL Critically low 9.5-13.5 [facility] Comment on above: Performed By: #### C BC #### [facility] [address], [place] [address] Martha Naye PLT 135 103/ul Critically low 150-450 [facility] Comment on above: Performed By: #### C BC #### [facility] [address], [place] [address] Martha Naye RBC 5.31 106/ul Normal 4.70-6.10 [facility] Comment on above: Performed By: #### C BC #### [facility] [address], [place] [address] Martha Naye WBC 7.5 103/ul Normal 4.0-11.0 [facility] Comment on above: Performed By: #### C BC #### [facility] [address], [place] [address] Martha Naye LIPID PROFILEon 09-02-2020 CHOL-HDL RATIO NORM SEE BELOW Normal [facility] Comment on above: Result Comment: 3.3 - 4.4 LOW RISK 4.4 - 7.1 AVERAGE RISK 7.1 - 11.0 MODERATE RISK >11.0 HIGH RISK Performed By: #### T SH, CMP, LIPID #### [facility] [address], [place] [address] Martha Naye Cholesterol [Mass/Vol] 171 mg/dL Normal <=200 [facility] Comment on above: Performed By: #### T SH, CMP, LIPID #### [facility] [address], [place] [address] Martha Naye Cholesterol in HDL [Mass/Vol] 35 mg/dL Normal [facility] Comment on above: Performed By: #### T SH, CMP, LIPID #### [facility] [address], [place] [address] Martha Naye Cholesterol in LDL [Mass/Vol] 81.8 mg/dL Normal [facility] Comment on above: Performed By: #### T SH, CMP, LIPID #### [facility] [address], [place] [address] Martha Naye Cholesterol.total/C holesterol in HDL [Mass ratio] 4.9 {ratio} Normal [facility] Comment on above: Performed By: #### T SH, CMP, LIPID #### [facility] [address], [place] [address] Martha Naye HDL NORMAL > or = 60 mg/dl - LO W CARDIOVASCULAR RISK <40 mg/dl - HIGH CARDIOVASCULAR RISK Normal [facility] Comment on above: Performed By: #### T SH, CMP, LIPID #### [facility] [address] [place] [id number] Martha Naye LDL CALC NORMAL SEE BELOW Normal [facility] Comment on above: Result Comment: <100 mg/dl OPTIMAL 100 - 129 mg/dl NEAR OR ABOVE OPTIMAL 130 - 159 mg/dl BORDERLINE HIGH 160 - 189 mg/dl HIGH >190 mg/dl VERY HIGH Performed By: #### T SH, CMP, LIPID #### [facility] [address] [place] [id number] Martha Naye Triglyceride [Mass/Vol] 271 mg/dL Critically high <=150 [facility] Comment on above: Performed By: #### T SH, CMP, LIPID #### [facility] [address] [place] [id number] Martha Naye VLDL CALC 54.2 mg/dL Normal [facility] Comment on above: Performed By: #### T GEORGI, CMP, LIPID #### [facility] [address], [place] [address] Martha Naye MICROALB CREAT RATIO RANDOMo n 09-02-2020 mALB <1.3 Normal <=30.0 [facility] Comment on above: Performed By: #### M CRR #### [facility] [address], [place] [address] Martha Naye MALB CR RATIO 10.7 mg/g Normal 0.0-29.9 [facility] Comment on above: Performed By: #### M CRR #### [facility] [address], [place] [address] Martha Naye MALB CR RATIO RANGE SEE BELOW Normal [facility] Comment on above: Result Comment: NO M ICROALBUMINURIA 0-29 MG/G CLINICAL MICROALBUMINURIA 30-300 MG/G MACROALBUMINURIA >300 MG/G Performed By: #### M CRR #### [facility] [address] [place] [phone] Martha Naye URINE CREAT 121.61 mg/dL Normal 20.00-300.00 [facility] Comment on above: Performed By: #### M CRR #### [facility] [address] [place] [id number] Marthajosué Yancey PROF 14(COMP METB)on 021 Albumin [Mass/Vol] 4.2 g/dL Normal 3.5-5.0 [facility] Comment on above: Performed By: #### T SH, CMP, LIPID #### [facility] [address] [place] [id number] Martha Naye Albumin/Globulin [Mass ratio] 1.2 {ratio} Normal [facility] Comment on above: Performed By: #### T SH, CMP, LIPID #### [facility] [address] [place] [id number] Martha Naye ALP [Catalytic activity/Vol] 87 U/L Normal 38-126 [facility] Comment on above: Performed By: #### T SH, CMP, LIPID #### [facility] [address] [place] [id number] Martha Naye ALT [Catalytic activity/Vol] 51 U/L Normal 21-72 [facility] Comment on above: Performed By: #### T SH, CMP, LIPID #### [facility] [address] [place] [id number] Martha Naye Anion gap [Moles/Vol] 15.9 mmol/L Normal [facility] Comment on above: Performed By: #### T SH, CMP, LIPID #### [facility] [address] [place], [place] [address] Martha Naye AST [Catalytic activity/Vol] 31 U/L Normal 17-59 [facility] Comment on above: Performed By: #### T SH, CMP, LIPID #### [facility] [address] [place] [id number] Mratha Naye Bilirubin [Mass/Vol] 1.3 mg/dL Normal 0.2-1.3 [facility] Comment on above: Performed By: #### T SH, CMP, LIPID #### [facility] [address] [place] [address] Martha Naye Calcium [Mass/Vol] 8.5 mg/dL Normal 8.4-10.2 [facility] Comment on above: Performed By: #### T SH, CMP, LIPID #### [facility] [address] [place] [address] Martha Naye Chloride [Moles/Vol] 104 mmol/L Normal 98-107 [facility] Comment on above: Performed By: #### T SH, CMP, LIPID #### [facility] [address] [place] [address] Martha Naye CO2 [Moles/Vol] 25.2 mmol/L Normal 22.0-30.[address] [facility] Comment on above: Performed By: #### T SH, CMP, LIPID #### [facility] [address] [place] [address] Martha Naye Creatinine [Mass/Vol] 1.02 mg/dL Normal 0.66-1.25 [facility] Comment on above: Performed By: #### T SH, CMP, LIPID #### [facility] [address] [place] [address] Martha Naye EGFR-AF NEPALESE >60 Normal >=[address] [facility] Comment on above: Performed By: #### T SH, CMP, LIPID #### [facility] [address] [place] [address] Martha Naye EGFR-NON AF NEPALESE >60 Normal >=60 [facility] Comment on above: Performed By: #### T SH, CMP, LIPID #### [facility] [address] [place] [address] Martha Naye Globulin (S) [Mass/Vol] 3.6 g/dL Normal [facility] Comment on above: Performed By: #### T SH, CMP, LIPID #### [facility] [address] [place] [address] Martha Naye Glucose [Mass/Vol] 107 mg/dL Critically high 74-106 [facility] Comment on above: Performed By: #### T GEORGI CMP, LIPID #### [facility] [address] [place] [address] Martha Naye Potassium [Moles/Vol] 4.1 mmol/L Normal 3.4-5.0 [facility] Comment on above: Performed By: #### T GEORGI CMP, LIPID #### [facility] [address] [place], [place] [address] Martha Naye Protein [Mass/Vol] 7.8 g/dL Normal 6.1-8.2 [facility] Comment on above: Performed By: #### T GEORGI CMP, LIPID #### [facility] [address] [place] [address] Martha Naye Sodium [Moles/Vol] 141 mmol/L Normal 137-145 [facility] Comment on above: Performed By: #### T GEORGI CMP, LIPID #### [facility] [address] [place] [address] Martha Naye Urea nitrogen [Mass/Vol] 17.0 mg/dL Normal 9.0-20.0 [facility] Comment on above: Performed By: #### T GEORGI CMP, LIPID #### [facility] [address] [place] [address] Martha Naye Urea nitrogen/Creatinine [Mass ratio] 16.7 mg/mg Normal [facility] Comment on above: Performed By: #### T GEORGI CMP, LIPID #### [facility] [address] [place] [address] Martha Naye TSHon 09-02-2020 TSH 1.860 uIU/mL Normal 0.470-4.680 [facility] Comment on above: Performed By: #### T GEORGI CMP, LIPID #### [facility] [address] [place] [address] Martha Naye TSH RANGE SEE BELOW Normal [facility] Comment on above: Result Comment: <0.3 4 UIU/ml HYPERTHYROID 0.34-5.60 UIU/ml EUTHYROID >5.60 UIU/ml HYPOTHYROID Performed By: #### T SH, CMP, LIPID #### [facility] [address] [place] [address] Martha Yancey MAGR Intraoperative Recordon 06-16-2019 MAG[facility] Intraoperative Record MAG[facility] Intra-Op Record Summary Primary Physician: Finalized Date/Time: 06/16/19 12:25:52 Pt. Name: RACHEL ACKERMAN Brendan ZieglerB./Sex: 1950 MALE Med Rec #: [id number] Physician: Jordana Escamilla DO Financial #: [id number] Pt. Type: I Room/Bed: [facility] Admit/Disch: 06/01/19 06:00:00 - 06/03/19 15:06:00 Institution: [...] Klaehn, Margaret RN Role Performed Anesthesiologist of Speed Reading Teacher Speed Reading Teacher Record Time In 06/01/19 07:22:00 06/01/19 07:22:00 [...] MHRSCOTT Correct Documentation change anesthesia role Normal [facility] Coding Summaryon 06-04-2019 Coding Summary CODING DATE: 06/04/2019 [facility] STATUS: Home PAYOR: Medicare Grouper: 470 MS-DRG [employer] JOINT REPLACEMENT OR REATTACHMENT OF LOWER EXTREMITY W/O JAIL Low Trim 0 High Trim 999 ADMIT DX: M17.11 Unilateral primary osteoarthritis, right knee REASON FOR VISIT DX: FINAL DX: PRINCIPAL: M17.11 Y Unilateral primary osteoarthritis, right knee SECONDARY: G47.30 Y Sleep apnea, unspecified J44.9 Y Chronic obstructive pulmonary disease, unspecified PROCEDURES DOCTOR NAME DATE Replacement of Right Knee Joint Jordana Escamilla And 06/01/2019 with Synthetic Substitute, Cemented, Open Approach NOTE: The code number assigned matches the documented diagnosis and / or procedure in the patient's chart. However, the narrative phrase printed from the coding software may appear abbreviated, or result in slightly different terminology. Coded By: Daisy Esquivel Date Saved: 06/04/2019 10:36 am [facility] Consent Formson 06-04-2019 Consent Forms [id number] 20 [id number]#1.[address] [place] [address] History and Physicalon 06-04 History and Physical [id number]#1.[address] [place] [address] Medicare Messageon 0 Medicare Message [id number] 42 [id number]#1.[address] [place] [address] Medication Managementon 05-17 Medication Management [id number]#1.[address] [place] [address] Outside Recordson 06-04-2019 Outside Records [id number]#1.[address] [place] [address] Provider Orderson 06-04-2019 Provider Orders [id number]#1.[address] [place] [address] Telemetry Stripson 0 Telemetry Strips [id number]#1.[address] [place] [address] .Auto Diff 1on 06-03-2019 Auto [place] % 10 % Normal 1-12 [facility] Comment on above: Performed By: #### 7 [id number], [id number], [id number] ####[facility] (DEFAULT)[address] [place] [address] Baso Abs# 0.0 x10 Normal 0.0-0.2 [facility] Comment on above: Performed By: #### 7 [id number], [id number], [id number] ####[facility] (DEFAULT)[address] [place] [address] Basophils/100 WBC (Bld) 0.3 % Normal 0.2-2.0 [facility] Comment on above: Performed By: #### 7 [id number], [id number], [id number] ####[facility] (DEFAULT)[address] [place] [address] Eos Abs# 0.1 x10 Normal 0.0-0.4 [facility] Comment on above: Performed By: #### 7 [id number], [id number], [id number] ####[facility] (DEFAULT)[address] [place] [address] Eosinophils/100 WBC (Bld) 0.5 % Low 0.9-4.0 [facility] Comment on above: Performed By: #### 7 [id number], [id number], [id number] ####[facility] (DEFAULT)[address] [place] [address] Lymphocytes (Bld) [#/Vol] 2.1 x10 Normal 1.3-2.9 [facility] Comment on above: Performed By: #### 7 [id number], [id number], [id number] ####[facility] (DEFAULT)[address] [place] [address] Lymphocytes/100 WBC (Bld) 19 % Normal 14-48 [facility] Comment on above: Performed By: #### 7 [id number], [id number], [id number] ####[facility] (DEFAULT)[address] [place] [address] [place] Abs# 1.1 x10 High 0.0-0.8 [facility] Comment on above: Performed By: #### 7 [id number], [id number], [id number] ####[facility] (DEFAULT)[address] [place] [address] Neut Abs# 7.6 x10 Normal 1.5-9.2 [facility] Comment on above: Performed By: #### 7 [id number], [id number], [id number] ####[facility] (DEFAULT)[address] [place], [place] [address] Neutrophils/100 WBC (Bld) 70 % Normal 44-88 [facility] Comment on above: Performed By: #### 7 [id number], [id number], [id number] ####[facility] (DEFAULT)[address] [place] [address] CBC w/ Auto Diffon 0 Erythrocyte distribution width (RBC) [Ratio] 14.4 % Normal 11.5-15.0 [facility] Comment on above: Performed By: #### 7 373406, [id number], [id number] ####[facility] (DEFAULT)[address] [place] [address] Hematocrit (Bld) [Volume fraction] 36.6 % Normal 34.8-51.9 [facility] Comment on above: Performed By: #### 7 253324, [id number], [id number] ####[facility] (DEFAULT)[address] [place] [address] Hemoglobin (Bld) [Mass/Vol] 12.2 g/dL Normal 11.8-17.7 [facility] Comment on above: Performed By: #### 7 939046, 88528144, [id number] ####[facility] (DEFAULT)[address] [place] [address] Man Diff? Auto Normal [facility] Comment on above: Performed By: #### 7 051243, [id number], [id number] ####[facility] (DEFAULT)[address] [place] [address] MCH (RBC) [Entitic mass] 28 pg Normal 24-34 [facility] Comment on above: Performed By: #### 7 866324, [id number], [id number] ####[facility] (DEFAULT)[address] [place] [address] MCHC (RBC) [Mass/Vol] 33 g/dL Normal 26-37 [facility] Comment on above: Performed By: #### 7 521080, [id number], [id number] ####[facility] (DEFAULT)[address] [place] [address] MCV (RBC) [Entitic vol] 85 fL Normal 81-100 [facility] Comment on above: Performed By: #### 7 224199, [id number], [id number] ####[facility] (DEFAULT)[address] [place] [address]2654 Platelet mean volume (Bld) [Entitic vol] 8.9 fL Normal 6.3-10.2 [facility] Comment on above: Performed By: #### 7 054237, 87760349, [id number] ####[facility] (DEFAULT)[address] [place] [address] Platelets (Bld) [#/Vol] 144 x10 Normal 138-427 [facility] Comment on above: Performed By: #### 7 300241, [id number], [id number] ####[facility] (DEFAULT)[address] [place] [address]1820 RBC (Bld) [#/Vol] 4.32 x10 Normal 3.70-5.30 [facility] Comment on above: Performed By: #### 7 374319, 32632265, [id number] ####[facility] (DEFAULT)[address] [place] [address] 68591 WBC (Bld) [#/Vol] 10.9 x10 [facility] Comment on above: Performed By: #### 7 232029, [id number], [id number] ####[facility] (DEFAULT)[address] [place] [address]183 Education Noteon 06-03-2019 Education Note Education Materials [...] with your health care provider about the pbhi-dxd-jkvhype and prescription medicines that you are taking. [...] 04/01/2006 Document Revised: 02/24/2018 Document Reviewed: 02/24/2018 [employer] Patient Education ? 2019 [employer] Normal [facility] Electrolyte Panel Standardon 06-03-2019 Anion gap [Moles/Vol] 13.0 mmol/L Normal 5.0-19.0 [facility] Comment on above: Performed By: #### 7 375401, [id number], [id number] ####[facility] (DEFAULT)[address] [place] [address] 34521 Chloride [Moles/Vol] 106 mmol/L Normal 101-111 [facility] Comment on above: Performed By: #### 7 618355, [id number], [id number] ####[facility] (DEFAULT)[address] [place] [address]161 CO2 [Moles/Vol] 24 mmol/L Normal 21-32 [facility] Comment on above: Performed By: #### 7 555494, [id number], [id number] ####[facility] (DEFAULT)[address] [place] [address]61 Potassium [Moles/Vol] 4.2 mmol/L Normal 3.6-5.1 [facility] Comment on above: Performed By: #### 7 270933, 45350912, [id number] ####[facility] (DEFAULT)[address] [place] [address]107 Sodium [Moles/Vol] 139.0 mmol/L Normal 136.0-144.0 [facility] Comment on above: Performed By: #### 7 513422, 23614070, [id number] ####[facility] (DEFAULT)[address] [place] [address]2865 Inpatient Patient Summaryon 06-03-2019 Inpatient Patient Summary [address] [address] Patient Discharge Instructions Name: RACHEL ACKERMAN : 1950 Patient Address: [address] [place] [address] Primary Care Provider: Name: Patrica Cruz DNP After you are discharged if you find you have any questions, please, call [phone] ext [phone] to speak to a nurse. Discharge Diagnosis: Primary osteoarthritis of right knee Prescription Information: If you have been given a prescription for narcotics, seek immediate medical attention if you have any difficulty breathing or any sudden status changes such as confusion and sleepiness. If you or anyone you know is experiencing suicidal thoughts, mental health, alcohol and/or drug addiction problems; contact the [facility] 05/11 Crisis Hotline -Text 4HDST to 079091. If you received any narcotics, sedation, or [...] business decisions or sign any legal documents [facility] would like to thank you for allowing us to assist you with your healthcare needs. The following includes patient education materials and information regarding your injury/illness. ELAINE RACHEL Brendan has been given the following list of follow-up instructions, prescriptions, and patient education materials: Follow-up Instructions With: Address: When: Jordana Escamilla [address] [place] [address], [address] [place] [address] Business (2) 06/11/2019 9:00 AM With: Address: When: Patrica Cruz [address] [place] [address] Business (1) Medications During the course [...] with your health care provider about the hzcs-bxu-xgndaki and prescription medicines that you are taking. [...] 04/01/2006 Document Revised: 02/24/2018 Document Reviewed: 02/24/2018 [employer] Patient Education ? 2019 [employer]. Viruses or Bacteria What?s got you sick? [...] for Disease Control and Prevention December 2013 [facility] MAGR Postoperative Recordon 06-03-2019 MAGR Postoperative Record MAGR Phase II Record Summary Primary Physician: Jordana Escamilla DO Finalized Date/Time: 06/03/19 12:11:36 Pt. Name: RACHEL ACKERMAN /Sex: 1950 MALE Med Rec #: [id number] Physician: Jordana Escamilla DO Financial #: [id number] Pt. Type: I Room/Bed: [facility]/ Admit/Disch: 06/01/19 06:00:00 - Institution: Phase II [...] Signed By: Claudine Beck RN 06/03/19 12:11 [facility] Nutrition Noteon 06-03-2019 Nutrition Note Pt eating well, avg 100% of meals and supplements. No N/V. Labs reviewed. BM noted 06/02. No new rec'd at this time. Will continue to monitor. [facility] Pharmacy Noteon 06-03-2019 Pharmacy Note Delivered and collected hard copy at 12:00 PM. One prescription was paid for in marr [Electronically Signed on: 06/03/2019 16:06 EST] Anusha Valderrama [Verified on: 06/03/2019 16:06 EST] Anusha Valderrama Delivered at 2:16 PM correction [Electronically Signed on: 06/03/2019 16:07 EST] [facility] Pharmacy Note Teach back on new medication completed. [Electronically Signed on: 06/03/2019 15:24 EST] Flavia Small [Verified on: 06/03/2019 15:24 EST] Beverly Smallbeth [facility] Pharmacy Note Patient is a 68 Year s yo MALE presenting with Diagnosis for this visit Unilateral primary osteoarthritis, right knee Counseled: Patient Family Member New Medications: Include the following:Percocet Counseling Points Discussed: Indications, side effects and compliance Handouts: Medication education materials, Personal Medication Record, and Meds to Beds information Assessment of patient/screening representative 's response to counseling: Patient/Violin Repairer was engaged in counseling session and verbalized understanding Patient/screening representative found counseling beneficial Meds to Beds: Accepted and will make the notation in the patients record [Electronically Signed on: 06/03/2019 13:33 EST] Flavia Small [Verified on: 06/03/2019 13:33 EST] Flavia Small [facility] Pharmacy Note I have reviewed this [...] Scheduled narcotic: none prn narcotic pain medication(s): [id number] - Moderate pain, 10mg - Severe pain prn non-narcotic pain medication(s): Acetaminophen- Mild pain, Vistaril and ketorolac Action: OARRS and risk factors reviewed [Electronically Signed on: 06/03/2019 08:37 EST] Tania Grimes PharmD [Verified on: 06/03/2019 08:37 EST] Tania Grimes PharmD [facility] Progress Note-Physicianon Progress Note-Physician DATE OF [...] DISCHARGE: Stable. Van Irby DO JOB #: [id number] [Electronically Signed on: 06/04/2019 08:18 EST] VAN IRBY DO [Verified on: 06/04/2019 08:18 EST] VAN IRBY DO [Transcribed on: 06/03/2019 12:39 EST] [facility] Progress Note-Physician DATE OF ORTHOPEDIC POSTOPERATIVE PROGRESS [...] PROGNOSIS: Good. Van Irby DO JOB #: [id number] [Electronically Signed on: 06/03/2019 11:46 EST] VAN IRBY DO [Verified on: 06/03/2019 11:46 EST] VAN IRBY DO [Transcribed on: 06/03/2019 06:10 EST] [facility] .Auto Diff 1on 06-02-2019 Auto [place] % 9 % Normal 1-12 [facility] Comment on above: Performed By: #### 7 609152, [id number], [id number] ####[facility] (DEFAULT)[address] [place] [address] Baso Abs# 0.0 x10 Normal 0.0-0.2 [facility] Comment on above: Performed By: #### 7 180322, [id number], [id number] ####[facility] (DEFAULT)[address] [place] [address] 47701 Basophils/100 WBC (Bld) 0.1 % Low 0.2-2.0 [facility] Comment on above: Performed By: #### 7 073623, 73724776, [id number] ####[facility] (DEFAULT)[address] [place] [address]122 Eos Abs# 0.0 x10 Normal 0.0-0.4 [facility] Comment on above: Performed By: #### 7 513759, 84022767, [id number] ####[facility] (DEFAULT)[address] [place] [address] 13089 Eosinophils/100 WBC (Bld) 0.2 % Low 0.9-4.0 [facility] Comment on above: Performed By: #### 7 432987, 86492280, [id number] ####[facility] (DEFAULT)[address] [place] [address] 26454 Lymphocytes (Bld) [#/Vol] 2.0 x10 Normal 1.3-2.9 [facility] Comment on above: Performed By: #### 7 418365, 67402547, [id number] ####[facility] (DEFAULT)[address] [place] [address] 19853 Lymphocytes/100 WBC (Bld) 19 % Normal 14-48 [facility] Comment on above: Performed By: #### 7 476865, 11398035, [id number] ####[facility] (DEFAULT)[address] [place] [address]49 [place] Abs# 1.0 x10 High 0.0-0.8 [facility] Comment on above: Performed By: #### 7 272056, 27664987, [id number] ####[facility] (DEFAULT)[address] [place] [address] 26056 Neut Abs# 7.8 x10 Normal 1.5-9.2 [facility] Comment on above: Performed By: #### 7 751572, 31706880, [id number] ####[facility] (DEFAULT)[address] [place] [address] Neutrophils/100 WBC (Bld) 72 % Normal 44-88 [facility] Comment on above: Performed By: #### 7 493768, 87663331, [id number] ####[facility] (DEFAULT)[address] [place] [address] CBC w/ Auto Diffon 0 Erythrocyte distribution width (RBC) [Ratio] 14.1 % Normal 11.5-15.0 [facility] Comment on above: Performed By: #### 7 487812, 35438146, [id number] ####[facility] (DEFAULT)[address] [place] [address] Hematocrit (Bld) [Volume fraction] 33.5 % Low 34.8-51.9 [facility] Comment on above: Performed By: #### 7 612840, 51637165, [id number] ####[facility] (DEFAULT)[address] [place] [address] Hemoglobin (Bld) [Mass/Vol] 11.4 g/dL Low 11.8-17.7 [facility] Comment on above: Performed By: #### 7 560198, 53314548, [id number] ####[facility] (DEFAULT)[address] [place] [address] Man Diff? Auto Normal [facility] Comment on above: Performed By: #### 7 531108, 07507888, [id number] ####[facility] (DEFAULT)[address] [place] [address] MCH (RBC) [Entitic mass] 29 pg Normal 24-34 [facility] Comment on above: Performed By: #### 7 718376, 96208612, [id number] ####[facility] (DEFAULT)[address] [place] [address] MCHC (RBC) [Mass/Vol] 34 g/dL Normal 26-37 [facility] Comment on above: Performed By: #### 7 920707, 92090634, [id number] ####[facility] (DEFAULT)[address] [place] [address] MCV (RBC) [Entitic vol] 84 fL Normal 81-100 [facility] Comment on above: Performed By: #### 7 360489, 80958988, [id number] ####[facility] (DEFAULT)[address] [place] [address] 49101 Platelet mean volume (Bld) [Entitic vol] 8.9 fL Normal 6.3-10.2 [facility] Comment on above: Performed By: #### 7 167697, 93515538, [id number] ####[facility] (DEFAULT)[address] [place] [address]671 Platelets (Bld) [#/Vol] 133 x10 Low 138-427 [facility] Comment on above: Performed By: #### 7 062259, 75042252, [id number] ####[facility] (DEFAULT)[address] [place] [address] 83592 RBC (Bld) [#/Vol] 3.99 x10 Normal 3.70-5.30 [facility] Comment on above: Performed By: #### 7 657081, 01160660, [id number] ####[facility] (DEFAULT)[address] [place] [address] 87918 WBC (Bld) [#/Vol] 10.9 x10 [facility] Comment on above: Performed By: #### 7 413585, 16906184, [id number] ####[facility] (DEFAULT)[address] [place] [address] Electrolyte Panel Standardon 06-02-2019 Anion gap [Moles/Vol] 13.0 mmol/L Normal 5.0-19.0 [facility] Comment on above: Performed By: #### 7 025719, 55919154, [id number] ####[facility] (DEFAULT)[address] [place] [address] 16111 Chloride [Moles/Vol] 103 mmol/L Normal 101-111 [facility] Comment on above: Performed By: #### 7 119991, 53219503, [id number] ####[facility] (DEFAULT)[address] [place] [address] 67627 CO2 [Moles/Vol] 23 mmol/L Normal 21-32 [facility] Comment on above: Performed By: #### 7 613817, 85853203, [id number] ####[facility] (DEFAULT)[address] [place] [address] Potassium [Moles/Vol] 3.9 mmol/L Normal 3.6-5.1 [facility] Comment on above: Performed By: #### 7 911245, 43268911, [id number] ####[facility] (DEFAULT)[address] [place] [address] Sodium [Moles/Vol] 135.0 mmol/L Low 136.0-144.0 [facility] Comment on above: Performed By: #### 7 624551, 71974807, [id number] ####[facility] (DEFAULT)[address] [place] [address] Progress Note - Nurseon 05-16 Progress Note [...] 06/02/2019 16:39 EST] Kinza London RN Normal [facility] Anesthesia Noteon 06-01-2019 Anesthesia Note Patient: [...] history): All Problems Alcoholism / SNOMED CT 96918658 / Confirmed Anxiety / SNOMED CT 99575341 / Confirmed Asthma / SNOMED CT 972611116 / Confirmed Depression / SNOMED CT 79448666 / Confirmed Former smoker / SNOMED CT 86032298 / Confirmed Hyperlipidemia / SNOMED CT 94835215 / Confirmed Skin cancer / SNOMED CT 9165291975 / Confirmed Sleep apnea / SNOMED CT 39863175 / Confirmed Histories Family History: Heart attack Father Mother Hypertension Mother Procedure history: Tonsillectomy (795963667). Arthroscopy (10024604). Comments: 05/27/2019 14:07 Saskia Lim RN Right knee 05/27/2019 12:37 Claudine Esteban RN meniscectomy Colonoscopy (496986212). Palate operation (265541786). Comments: 05/27/2019 14:08 Saskia Lim RN Removal of for sleep apnea Maxillary sinus (69888797). Extraction of cataract by phacofragmentation with aspiration (3728453283). Comments: 05/27/2019 14:19 EST - Saskia Landin RN bilateral Social History Electronic Cigarette/Vaping Assessment [...] 06:25) Review / Management Laboratory Results Plan [place] [employer] Anesthesiologists#(ASA ) physical status classification: Class III. Anesthetic Preoperative Plan Anesthesia: General. , Regional adductor canal block. Anesthetic plan, risks, benefits, and alternatives discussed with the patient and/or family. Patient verbalized understanding. Anesthetic technique: discussed SAB vs GA. pt prefers GA. [Electronically Signed on: 06/01/2019 09:29 EST] Jonathon Ely MD [Verified on: 06/01/2019 09:29 EST] Jonathon Ely MD [facility] History and Physicalon 06-01 History and Physical [id number]. [id number] [facility] MAGR Intraoperative Recordon 06-01-2019 MAGR Intraoperative Record MAGR Intra-Op Record Summary Primary Physician: Jordana Escamilla DO Finalized Date/Time: 06/01/19 09:57:13 Pt. Name: RACHEL ACKERMAN D.O.B./Sex: 1950 MALE Med Rec #: [id number] Physician: Jordana Escamilla DO Financial #: [id number] Pt. Type: I Room/Bed: [facility] Admit/Disch: 06/01/19 06:00:00 - Institution: Case Times MAGR Entry 1 Patient In Room Time 06/01/19 07:36:00 Out Room Time 06/01/19 09:46:00 Anesthesia Start Time 06/01/19 07:36:00 Stop Time 06/01/19 09:46:00 Surgery Start Time 06/01/19 08:06:00 Stop Time 06/01/19 09:38:00 Last Modified By: Sandee Hill RN 06/01/19 09:55:43 Case Attendance MAGR Entry 1 Entry 2 Entry 3 Case Attendee Jordana Escamilla John M MD Jasenak RN, Cynthia M Andrew DO Role Performed Surgeon - Primary Anesthesiologist of Speed Reading Teacher Record Time In 06/01/19 07:36:00 06/01/19 07:36:00 06/01/19 07:36:00 Time Out 06/01/19 09:46:00 06/01/19 09:46:00 06/01/19 09:46:00 Procedure Arthroplasty Knee Arthroplasty Knee Arthroplasty Knee Total(Right) Total(Right) Total(Right) Last Modified By: Sergio RN, Sandee Hill RN, Sandee Sutherland RN 06/01/19 09:55:49 06/01/19 09:55:49 06/01/19 09:55:49 Entry 4 Entry 5 Entry 6 Case Attendee Patrica Raymond RN, Stephanie RN Wilkins CST, Rachel Role Performed Senior Procurement Manager Scrub Personnel Scrub Personnel Time In 06/01/19 [...] Knee Total Primary Procedure Yes Primary Surgeon Jordana Escamilla Remi DO Surgeon Comment RIGHT TOTAL KNEE Start [...] Gluconate Prep By Sandee Hill RN, and Rani Mathew RN Prep Area (Im.270) Leg, Knee, Foot [...] Placement Details Right Tourniquet Times Applied By Jordana Escamilla Removed By Rani Howard RN DO [...] BACITRACIN OINTMENT Route of Admin TOP By Jordana Escamilla DO Outcome Met (O.130) Yes Last [...] 08:29:00 06/01/19 08:30:00 06/01/19 08:31:00 Date/Time Implanted/Explanted Jordana Escamilla James Huddleston, James By: Remi Mejias DO Size 6.5MM DIAMETER; 35MM 27MM LENGTH 48MM LENGTH LENGTH Glass Etcher BRITTANY BRITTANY BRITTANY Catalog # Lot Number [id number] Expiration Date 02/12/29 11/12/28 Serial Number Device Identifier Human Readable RAJNI Machine Readable RAJNI MR Class Implant Usage Data Site Knee R Knee R Knee R Quantity 2 1 1 Reason for Explant Reason Not Retained Explant Disposition Head Bookkeeper Sterility External Indicator Result Internal Indicator Results Outcome Met (O.30) Yes Yes Yes Last Modified By: Sergio HALL, Sandee Hill RN, Sandee Hill RN, Sandee Vides 06/01/19 08:32:35 06/01/19 08:32:35 06/01/19 08:32:35 Entry 4 Entry 5 Entry 6 Procedure Arthroplasty Knee Arthroplasty Knee Arthroplasty Knee Total(Right) Total(Right) Total(Right) Implant Action Implant Implant Implant Description BRITTANY FEMUR CEMENTED BRITTANY ARTICULAR BRITATNY ALL POLY PATELLA CRUCIATE RETAINING SURFACE MEDIAL CONGRUENT CEMENTED STANDARD Implant Information Implant/Explant 06/01/19 08:51:00 06/01/19 08:52:00 06/01/19 08:54:00 Date/Time Implanted/Explanted Jordana Escamilla, Jordana Stovall By: Remi Wrightw DO Remi DO Size RIGHT SIZE 9 RIGHT 10MM HEIGHT USE 35MM DIAMETER; 9.0MM WITH TIBIA SIZES E-F/CR THICKNESS FEMUR SIZES 8- Glass Etcher BRITTANY BRITTANY BRITTANY Catalog # Lot Number [id number] Expiration Date 05/15/27 12/14/23 02/12/27 Serial Number Device Identifier Human Readable RAJNI Machine Readable RAJNI MR Class Implant Usage Data Site Knee R Knee R Knee R Quantity 1 1 1 Reason for Explant Reason Not Retained Explant Disposition Head Bookkeeper Sterility External Indicator Result Internal Indicator Results [...] 08:56:00 06/01/19 08:59:00 06/01/19 09:00:00 Date/Time Implanted/Explanted Jordana Escamilla James Huddleston, James By: Remi Mejias DO Size 5 DEGREE STEMMED RIGHT SIZE E Glass Etcher BRITTANY BIOMENT BIOMENT Catalog # Lot Number [id number] Expiration Date 02/12/29 06/13/23 03/14/23 Serial Number Device Identifier Human Readable RAJNI Machine Readable RAJNI MR Class Implant Usage Data Site Knee R Knee R Knee R Quantity 1 1 1 Reason for Explant Reason Not Retained Explant Disposition Head Bookkeeper Sterility External Indicator Result Internal Indicator Results Outcome Met (O.30) Yes Yes Yes Last Modified By: Sergio HALL, Sandee Sutherland RN, RN, Cynthia M 06/01/19 08:57:03 06/01/19 09:01:34 06/01/19 09:01:34 Post-Care [...] Signed By: Sandee Hill RN 06/01/19 09:57 [facility] MAGR PACU Recordon 0 MAGR PACU Record MAGR PACU Record Summary Primary Physician: Jordana Escamilla DO Finalized Date/Time: 06/01/19 10:34:41 Pt. Name: RACHEL ACKERMAN/Sex: 1950 MALE Med Rec #: [id number] Physician: Jordana Escamilla DO Financial #: [id number] Pt. Type: I Room/Bed: 232/1 Admit/Disch: 06/01/19 06:00:00 - Institution: PACU Case Times MAGR Entry 1 In PACU I 06/01/19 09:48:00 Discharge from PACU 06/01/19 10:40:00 I Last Modified By: Rani Howard RN 06/01/19 10:34:33 Finalized By: Rani Howard RN Document Signatures Signed By: Rani Howard RN 06/01/19 10:34 [facility] MAGR Preoperative Recordon 0 06-01-2019 MAGR Preoperative Record MAGR Pre-Op Record Summary Primary Physician: Jordana Escamilla DO Finalized Date/Time: 06/01/19 07:51:20 Pt. Name: RACHEL ACKERMAN/Sex: 1950 MALE Med Rec #: [id number] Physician: Jordana Escamilla DO Financial #: [id number] Pt. Type: I Room/Bed: / Admit/Disch: 06/01/19 [...] Signed By: Anila Victoria RN 06/01/19 07:51 [facility] Nutrition Noteon 06-01-2019 Nutrition Note Chart [...] for any changes; follow, assist prn ts [facility] Operative Report - Surgeon/P aileen 06-01-2019 [...] room. [Electronically Signed on: 06/01/2019 14:01 EST] Jordana Escamilla DO [Verified on: 06/01/2019 14:01 EST] Jordana Escamilla DO [facility] Patient Handouton 06-01-2019 Patient Handout Orthopedics [...] with your health care provider about the warb-wrc-apckngg and prescription medicines that you are taking. [...] 04/01/2006 Document Revised: 02/24/2018 Document Reviewed: 02/24/2018 [employer] Interactive Patient Education ? 2019 [employer] [facility] XR Knee One or Two Views [...] Rosas MD 06/01/19 12:57 p Technologist: NIKITA [facility] Progress Note - Nurseon 05-16 Progress Note - Nurse Spoke with pt and informed him to be here at 6am and NPO after MN. He verbalizes understanding. [Electronically Signed on: 05/29/2019 09:26 EST] Claudine Beck RN [Verified on: 05/29/2019 09:26 EST] Claudine Beck RN [facility] Vital Signs Date Time Vital Sign Value Performing Clinician Facility 08-13-2023 09:01-0400 Blood Pressure Location Haydee Camilo [facility] 08-13-2023 09:01-0400 Body temperature 97.88 [degF] Haydee Camilo [facility] 08-13-2023 09:01-0400 Diastolic blood pressure 80 mm[Hg] Haydee Orzech [facility] 08-13-2023 09:01-0400 Heart rate 73 /min Haydee Orzech [facility] 08-13-2023 09:01-0400 Respiratory rate 20 /min Haydee Orzech [facility] 08-13-2023 09:01-0400 Systolic blood pressure 150 mm[Hg] Haydee Orzech [facility] 07-08-2023 10:03-0400 Body height 177.8 cm DNP Patrica Cruz Work Phone: [facility] 07-08-2023 10:03-0400 Body mass index (BMI) [Ratio] 35.3 kg/m2 DNP Patrica Luquele Work Phone: [facility] 07-08-2023 10:03-0400 Body weight 111.78 kg DNP Patrica Kaple Work Phone: [facility] 07-08-2023 10:03-0400 Diastolic blood pressure 78 mm[Hg] DNP Patrica Luquele Work Phone: [facility] 07-08-2023 10:03-0400 Heart rate 65 /min DNP Patrica Kaple Work Phone: [facility] 07-08-2023 10:03-0400 SaO2% (BldA) [Mass fraction] 97 % DNP Patrica Kaple Work Phone: [facility] 07-08-2023 10:03-0400 Systolic blood pressure 126 mm[Hg] DNP Patrica Luquele Work Phone: [facility] 05-06-2023 10:25-0500 Blood Pressure Location Elia HUERTA [facility] 05-06-2023 10:25-0500 Diastolic blood pressure 86 mm[Hg] Elia HUERTA [facility] 05-06-2023 10:25-0500 Heart rate 75 /min Elia HUERTA [facility] 05-06-2023 10:25-0500 Respiratory rate 16 /min Elia HUERTA [facility] 05-06-2023 10:25-0500 Systolic blood pressure 135 mm[Hg] Elia HUERTA [facility] 04-16-2023 07:15-0500 Body height 177.8 cm Patrica Cruz Other [facility] 04-16-2023 07:15-0500 Body mass index (BMI) [Ratio] 35.28 kg/m2 Patrica Cruz Other [facility] Other 04-16-2023 07:15-0500 Body weight 111.54 kg Patrica Cruz Other [facility] Other 04-16-2023 07:15-0500 Body weight 111.53 kg DNP Patrica Cruz Work Phone: [facility] 04-16-2023 07:15-0500 Diastolic blood pressure 70 mm[Hg] Patrica Cruz Other [facility] 04-16-2023 07:15-0500 Respiratory rate 18 /min Patrica Cruz Other [facility] Other 04-16-2023 07:15-0500 SaO2% (BldA) [Mass fraction] 97 % Patrica Cruz Other [employer] Other 04-16-2023 07:15-0500 Systolic blood pressure 138 mm[Hg] Patrica Cruz Other [facility] 04-01-2023 10:00-0500 Body height 177.8 cm Patrica Cruz Other [employer] Other 04-01-2023 10:00-0500 Body mass index (BMI) [Ratio] 35.15 kg/m2 Patrica Cruz Other [employer] Other 04-01-2023 10:00-0500 Body weight 111.13 kg Patrica Cruz Other [employer] Other 04-01-2023 10:00-0500 Diastolic blood pressure 78 mm[Hg] Patrica Cruz Other [employer] Other 04-01-2023 10:00-0500 Respiratory rate 18 /min Patrica Cruz Other [employer] Other 04-01-2023 10:00-0500 SaO2% (BldA) [Mass fraction] 94 % Patrica Cruz Other [employer] Other 04-01-2023 10:00-0500 Systolic blood pressure 140 mm[Hg] Patrica Cruz Other [employer] Other 03-19-2023 09:15-0500 Body height 177.8 cm Patrica Cruz Other [employer] Other 03-19-2023 09:15-0500 Body mass index (BMI) [Ratio] 34.43 kg/m2 Patrica Cruz Other [employer] Other 03-19-2023 09:15-0500 Body temperature 97.5 [degF] Patrica Cruz Other [employer] Other 03-19-2023 09:15-0500 Body weight 108.86 kg Patrica Cruz Other [facility] Other 03-19-2023 09:15-0500 Diastolic blood pressure 78 mm[Hg] Patrica Cruz Other [employer] Other 03-19-2023 09:15-0500 Respiratory rate 18 /min Patrica Cruz Other [employer] Other 03-19-2023 09:15-0500 SaO2% (BldA) [Mass fraction] 97 % Patrica Cruz Other [employer] Other 03-19-2023 09:15-0500 Systolic blood pressure 120 mm[Hg] Patrica Cruz Other [employer] Other 02-20-2023 10:35-0500 Body height 177.8 cm Kesha Clifton MD Work Phone: [facility] 02-20-2023 10:35-0500 Body temperature 97.7 [degF] Kesha Clifton MD Work Phone: [facility] 02-20-2023 10:35-0500 Body weight 114.85 kg Kesha Clifton MD Work Phone: [facility] 02-20-2023 10:35-0500 Diastolic blood pressure 74 mm[Hg] Kesha Clifton MD Work Phone: [facility] 02-20-2023 10:35-0500 Heart rate 65 /min Kesha Clifton MD Work Phone: [facility] 02-20-2023 10:35-0500 Respiratory rate 16 /min Kesha Clifton MD Work Phone: [facility] 02-20-2023 10:35-0500 SaO2% (BldA) [Mass fraction] 96 % Kesha Clifton MD Work Phone: [facility] 02-20-2023 10:35-0500 Systolic blood pressure 130 mm[Hg] Kesha Clifton MD Work Phone: [facility] 11-12-2022 12:16-0400 Blood Pressure Location Elia HUERTA [facility] 11-12-2022 12:16-0400 Diastolic blood pressure 86 mm[Hg] Elia HUERTA [facility] 11-12-2022 12:16-0400 Heart rate 79 /min Elia HUERTA [facility] 11-12-2022 12:16-0400 Respiratory rate 16 /min Elia HUERTA [facility] 11-12-2022 12:16-0400 Systolic blood pressure 142 mm[Hg] Elia HUERTA [facility] 09-27-2022 09:00-0400 Body height 177.8 cm Patrica Cruz Other [facility] Other 09-27-2022 09:00-0400 Body mass index (BMI) [Ratio] 36.15 kg/m2 Patrica Cruz Other [facility] Other 09-27-2022 09:00-0400 Body temperature 98.1 [degF] Patrica Anthony Other [employer] Other 09-27-2022 09:00-0400 Body weight 114.31 kg Patrica Anthony Other [employer] Other 09-27-2022 09:00-0400 Diastolic blood pressure 76 mm[Hg] Patrica Anthony Other [employer] Other 09-27-2022 09:00-0400 SaO2% (BldA) [Mass fraction] 97 % Patrica Kapforrest Other [employer] Other 09-27-2022 09:00-0400 Systolic blood pressure 128 mm[Hg] Patrica Anthony Other [facility] Other 02-26-2022 11:00-0500 Body height 177.8 cm Patrica Kapforrest Other [facility] Other 02-26-2022 11:00-0500 Body mass index (BMI) [Ratio] 35.88 kg/m2 Patrica Anthony Other [facility] Other 02-26-2022 11:00-0500 Body temperature 96.7 [degF] Patrica Anthony Other [employer] Other 02-26-2022 11:00-0500 Body weight 113.45 kg Patrica Cruz Other [employer] Other 02-26-2022 11:00-0500 Diastolic blood pressure 70 mm[Hg] Patrica Anthony Other [facility] Other 02-26-2022 11:00-0500 Respiratory rate 18 /min Patrica Anthony Other [facility] Other 02-26-2022 11:00-0500 SaO2% (BldA) [Mass fraction] 98 % Patrica Anthony Other [facility] Other 02-26-2022 11:00-0500 Systolic blood pressure 128 mm[Hg] Patrica Anthony Other [facility] Other 09-05-2021 10:54-0400 Blood Pressure Location Will Rivera Jr. [facility] 09-05-2021 10:54-0400 Diastolic blood pressure 82 mm[Hg] Will Rivera Jr. [facility] 09-05-2021 10:54-0400 Heart rate 71 /min Will Rivera Jr. [facility] 09-05-2021 10:54-0400 Respiratory rate 16 /min Will Rivera Jr. [facility] 09-05-2021 10:54-0400 Systolic blood pressure 137 mm[Hg] Will Rivera Jr. [facility] 08-24-2021 11:00-0400 Body height 177.8 cm Patrica Cruz Other [employer] Other 08-24-2021 11:00-0400 Body mass index (BMI) [Ratio] 36.21 kg/m2 Patrica Anthony Other [employer] Other 08-24-2021 11:00-0400 Body weight 114.49 kg Patrica Anthony Other [employer] Other 08-24-2021 11:00-0400 Diastolic blood pressure 82 mm[Hg] Patrica Cruz Other [facility] Other 08-24-2021 11:00-0400 Respiratory rate 18 /min Patrica Cruz Other [employer] Other 08-24-2021 11:00-0400 SaO2% (BldA) [Mass fraction] 96 % Patrica Anthony Other [employer] Other 08-24-2021 11:00-0400 Systolic blood pressure 122 mm[Hg] Patrica Cruz Other [facility] Other 02-22-2021 11:00-0500 Body height 177.8 cm Patrica Cruz Other [employer] Other 02-22-2021 11:00-0500 Body mass index (BMI) [Ratio] 36.07 kg/m2 Patrica Cruz Other [facility] Other 02-22-2021 11:00-0500 Body temperature 97.4 [degF] Patrica Cruz Other [employer] Other 02-22-2021 11:00-0500 Body weight 114.04 kg Patrica Anthony Other [facility] Other 02-22-2021 11:00-0500 Diastolic blood pressure 80 mm[Hg] Patrica Anthony Other [employer] Other 02-22-2021 11:00-0500 Respiratory rate 18 /min Patrica Anthony Other [facility] Other 02-22-2021 11:00-0500 SaO2% (BldA) [Mass fraction] 97 % Patrica Anthony Other [employer] Other 02-22-2021 11:00-0500 Systolic blood pressure 130 mm[Hg] Patrica Cruz Other [employer] Other Encounters Encounter Date Encounter Type Care Provider Facility Start: 10-14-2023 ambulatory Elia Oh ty:ZORAIDA Palomo Start: 08-16-2023 End: 08-16-2023 ambulatory MARIA FERNANDA FREYDom Not Available Start: 08-13-2023 End: 08-13-2023 ambulatory Haydee X Oraprylch Facility:[facility] Palomo Start: 08-13-2023 End: 08-13-2023 Patient encounter procedure Haydee X Orzech [facility] [place] Start: 07-08-2023 End: 07-08-2023 ambulatory DNP Patrica Cruz Work Phone: [facility] Work Phone: Start: 07-08-2023 End: 07-08-2023 Patient encounter procedure DNP Patrica Cruz Work Phone: [facility] [place] Work Phone: Start: 06-04-2023 End: 06-05-2023 ambulatory JORDANA ESCAMILLA Not Available Start: 05-06-2023 End: 05-06-2023 ambulatory Elia R HUERTA Facility:[facility] [place] Start: 05-06-2023 End: 05-06-2023 Patient encounter procedure Elia Brendan DEANNA [facility] Start: 04-22-2023 End: 04-22-2023 ambulatory Elia R HUERTA Facility:[facility] [place] Start: 04-22-2023 End: 04-22-2023 Patient encounter procedure Elia Cardona HUERTA [facility] Start: 04-18-2023 End: 04-18-2023 ambulatory Elia HUERTA Facility:CD:[id number] Start: 04-16-2023 End: 04-16-2023 ambulatory Patrica Cruz Other [employer] Other Start: 04-16-2023 Encounter for other preprocedural examination Patrica Cruz [facility] [place] Start: 04-16-2023 Office outpatient vi sit 25 minutes Patrica Cruz [facility] [place] Start: 04-16-2023 End: 04-16-2023 Patient encounter procedure DNP Patrica Cruz Work Phone: [facility] [place] Work Phone: Start: 04-13-2023 End: 04-13-2023 ambulatory Patrica Cruz Facility:[facility] Start: 04-13-2023 End: 04-13-2023 ambulatory DNP Patrica Cruz Work Phone: [facility] Work Phone: Start: 04-13-2023 End: 04-13-2023 Patient encounter procedure DNP Patrica Cruz Work Phone: [facility] [place] Work Phone: Start: 04-09-2023 End: 04-09-2023 ambulatory Patrica Cruz Other [employer] Other Start: 04-09-2023 Encounter for other preprocedural examination Patrica Cruz [facility] [place] Start: 04-09-2023 Telephone encounter Patrica Anthony [facility] [place] Start: 04-02-2023 End: 04-02-2023 ambulatory Patrica Luqueforrest Other [employer] Other Start: 04-02-2023 Telephone encounter Patrica Anthony [facility] Start: 04-01-2023 End: 04-01-2023 ambulatory Patrica Anthony Other [employer] Other Start: 04-01-2023 Office outpatient vi sit 25 minutes Patrica Anthony [facility] [place] Start: 03-19-2023 End: 03-19-2023 ambulatory Patrica Cruz Other [employer] Other Start: 03-19-2023 Office outpatient vi sit 25 minutes Patrica Cruz [facility] [place] Start: 03-18-2023 End: 03-18-2023 ambulatory Patrica Cruz Other [employer] Other Start: 03-18-2023 Telephone encounter Patrica Guzman [facility] [place] Start: 03-05-2023 End: 03-05-2023 ambulatory Patrica Cruz Other [employer] Other Start: 03-05-2023 Telephone encounter Patrica Luqueforrest [facility] [place] Start: 03-01-2023 ambulatory Elia Oh ty:[facility] [place] Start: 02-20-2023 End: 02-20-2023 ambulatory KESHA CLIFTON Facility:[facility] Start: 02-20-2023 End: 02-20-2023 ambulatory Kesha Clifton MD Work Phone: Hematology/Oncology Comment on above: Thrombocytopenia (HC C) (Primary Dx); Platelets decreased (HCC) Start: 02-20-2023 End: 02-20-2023 Patient encounter procedure Kesha Clifton MD Work Phone: [facility] Start: 02-11-2023 ambulatory Elia Raineyi ty:[facility] [place] Start: 01-28-2023 Telephone encounter Crystal Cooley RN Hematology/Oncology Comment on above: Patient Update Start: 01-23-2023 End: 01-23-2023 [facility] Facility[facility] Start: 01-22-2023 Chart abstracting Kesha sierra MD Work Phone: Hematology/Oncology Start: 12-25-2022 End: 12-25-2022 ambulatory Elia HUERTA [facility] Start: 12-25-2022 End: 12-25-2022 Patient encounter procedure Elia HUERTA [facility] Start: 11-12-2022 End: 11-12-2022 ambulatory Elia HUERTA Facility:[facility] [place] Start: 11-12-2022 End: 11-12-2022 Patient encounter procedure Elia HUERTA [facility] [place] Start: 11-07-2022 End: 11-07-2022 ambulatory Genaro Sheldon Facility:[facility] Start: 11-07-2022 End: 11-07-2022 ambulatory GUICHO Cruz Work Phone: [facility] Work Phone: Start: 11-07-2022 End: 11-07-2022 Patient encounter procedure DNP Patrica Cruz Work Phone: [facility] Work Phone: Start: 10-08-2022 End: 10-08-2022 ambulatory Patrica Cruz Other [employer] Other Start: 10-08-2022 Telephone encounter Patrica Guzman [facility] [place] Start: 09-27-2022 End: 09-27-2022 ambulatory Patrica Cruz Other [employer] Other Start: 09-27-2022 Patient encounter procedure Patrica Cruz [facility] [place] Start: 02-26-2022 End: 02-26-2022 ambulatory Patrica Cruz Other [employer] Other Start: 02-26-2022 Office outpatient vi sit 25 minutes Patrica Kapforrest [facility] [place] Start: 12-26-2021 End: 12-26-2021 ambulatory Patrica Cruz Other [employer] Other Start: 12-26-2021 Telephone encounter Patrica Cruz [facility] [place] Start: 09-05-2021 End: 09-05-2021 Patient encounter procedure Will Rivera Jr. [facility] Start: 08-24-2021 End: 08-24-2021 ambulatory Patrica Cruz Other [employer] Other Start: 08-24-2021 Patient encounter procedure Patrica Anthony [facility] [place] Start: 02-22-2021 End: 02-22-2021 ambulatory Patrica Anthony Other [employer] Other Start: 02-22-2021 Office outpatient vi sit 25 minutes Patrica Cruz [facility] [place] Start: 09-22-2020 ambulatory PATRICA CRUZ Facility :[facility] Start: 09-02-2020 End: 09-03-2020 ambulatory PATRICA CRUZ Facility:[facility] Start: 08-31-2020 End: 09-01-[address] WILL RIVERA JR Facility:[facility] Start: 06-01-2020 End: 06-02-2020 ambulatory NONE LISTED REQUEST Facility:[facility] Start: 05-09-2020 End: 05-10-2020 ambulatory NONE LISTED REQUEST Facility: Procedures Date Procedure Procedure Detail Performing Clinician Start: 04-18-2023 Transurethral prostatectomy Elia HUERTA Start: 04-13-2023 Plain chest X-ray GUICHO Cruz Work Phone: Start: 12-25-2022 Transurethral cystoscopy Elia HUERTA Start: 12-25-2022 Urodynamic studies Diane HUERTA Start: 08-31-[address] JUAN R Carmichael ISTED REQUEST Comment on above: Performed By: #### P SAD #### [facility] [address] [place] [address] Martha Yancey Start: 02-13-2017 Nasal sinus procedure D matti Rivera Jr. Start: 08-13-2016 Excision of basal ce ll carcinoma Will Rivera Jr. Start: 02-14-2016 Cataract surgery Will Rivera Jr. Start: 04-15-2015 Colonoscopy Will viveros Jr. Start: 06-13-2014 Arthroscopy of knee Eligio Rivera Jr. Start: 04-15-1999 Pharyngeal operation for obstructive sleep apnea and snoring Will Rivera Jr. Tonsillectomy Will adler Plan of Treatment Date Care Activity Detail Author Start: 01-23-2026 Diabetes Screening Diabetes Screening [facility] Start: 07-08-2023 Patient referral [facility] Work Phone: Start: 12-14-2022 Covid-19 Vaccine () Covid-19 Vaccine () [facility] Start: 12-14-2022 Influenza vaccination Influenza Vaccine (#1) [facility] Start: 04-15-2022 Advance Directive Discussion Advance Directive Discussion [facility] Start: 04-15-2022 Depression Assessment Depression Assessment [facility] Start: 10-20-2018 Urine microalbumin profile DTaP,Tdap,Td Vaccine (1 - Tdap) [facility] Start: 11-20-2015 Pneumococcal Vaccine: 65+ (1 - PCV) Pneumococcal Vaccine: 65+ (1 - PCV) [facility] Start: 2010 RSV Vaccine (1 - 1-dose 60+ series) RSV Vaccine (1 - 1-dose 60+ series) [facility] Start: 2000 Shingrix Vaccine (1 of 2) Shingrix Vaccine (1 of 2) [facility] Start: 11-20-1995 Cologuard (FIT-DNA) Cologuard (FIT-DNA) [facility] Start: 11-20-1995 Colonoscopy Colonoscopy [facility] Start: 11-20-1995 Colorectal Cancer Screening Colorectal Cancer Screening [facility] Start: 11-20-[address] COLONOGRAPHY [facility] Start: 11-20-1995 Diabetes Screening Diabetes Screening [facility] Start: 11-20-1995 Fecal Occult Blood Fecal Occult Blood [facility] Start: 11-20-1995 SIGMOIDOSCOPY SIGMOIDOSCOPY [facility] Start: 1985 Lipid 1996 panel - Serum or Plasma Lipid Screening [facility] Start: 1969 Urine microalbumin profile DTaP,Tdap,Td Vaccine (1 - Tdap) [facility] Start: 1968 Hepatitis C Screening Hepatitis C Screening [facility] Start: 05-22-1951 Covid-19 Vaccine (#1) Covid-19 Vaccine (#1) [facility] Start: 1950 Abdominal Aortic Aneurysm Screening Abdominal Aortic Aneurysm Screening [facility] Patient referral [facility] Work Phone: [facility] Immunizations Immunization Date Immunization Notes Care Provider Giuliano smith 02-26-2022 influenza, high dose seasonal, preservative-free Patrica Cruz Other [facility] 02-26-2022 influenza virus vacc ine, unspecified formulation Crystal Cooley RN [facility] 04-16-2021 COVID-19 Vaccine Pfi zer - Documentation Purposes Only Patrica Cruz Other [facility] 03-23-2020 influenza (HD-IIV4) vaccine, age 65+ yr, high dose, quadrivalent, PF (FLUZONE HIGH-DOSE) Crystal Cooley RN [facility] 03-23-2020 influenza virus vacc ine, unspecified formulation DNP Patrica Cruz Work Phone: [facility] 03-23-2020 influenza, high dose seasonal, preservative-free Patrica Cruz Other [facility] 03-23-2020 pneumococcal polysaccharide vaccine, 23 valent Patrica Cruz Other [facility] 03-09-2019 influenza virus vacc ine, unspecified formulation DNP Patrica Cruz Work Phone: [facility] 03-09-2019 pneumococcal conjuga te vaccine, 13 valent Patrica Cruz Other [facility] 03-09-2019 influenza, high dose seasonal, preservative-free Patrica Cruz Other [facility] 10-19-2018 tetanus and diphther ia toxoids, adsorbed, preservative free, for adult use (5 Lf of tetanus toxoid and 2 Lf of diphtheria toxoid) Patrica Cruz Other [facility] 04-18-2018 Influenza, injectabl e, Madin Annalisa Canine Kidney, preservative free, quadrivalent Crystal Cooley RN [facility] 04-18-2018 influenza, seasonal, injectable Patrica Cruz Other [facility] 04-11-2017 influenza, injectabl e, quadrivalent, contains preservative Crystal Cooley RN [facility] 01-14-2016 influenza, injectabl e, quadrivalent, preservative free Crystal Cooley RN [facility] 01-07-2016 influenza, seasonal, injectable Patrica Cruz Other [facility] 12-14-2013 influenza, injectabl e, madin annalisa canine kidney, preservative free Crystal Cooley RN [facility] Payers Date Payer Category Payer Unknown MMO MMO MEDICARE SUPPLEMENT [id number] 2021-Present [phone] [address] [place] [address] Indemnity [id number] 2015 Medicare MEDICARE MEDICAR E A AND B [id number] 2015-Present [phone] [address] [address] [place] [address] Medicare [id number] 1959 Medicare [id number] 1959 Self-pay 1959 Unknown [id number] 1950 Unknown [id number] 1950 Unknown [id number] [id number]3 1950 Unknown [id number] [id number]3 1950 Unknown [id number] 2.16.840.1.354408.3.579.2.1259 1950 Unknown [id number] 2.16.840.1.040785.3.579.2.1259 1950 Unknown [id number] 2.16.840.1.839486.3.579.2.1259 1950 Unknown [id number] 2.16.840.1.811974.3.579.2.727 1950 Unknown [id number] 2.16.840.1.380944.3.579.2.727 1950 Unknown [id number] 2.16.840.1.219208.3.579.2.727 1950 Unknown [id number] 2.16.840.1.083836.3.579.2.727 1950 Unknown [id number] 2.16.840.1.892529.3.579.2.727 1950 Unknown [id number] 2.16.840.1.044096.3.579.2.727 1950 Unknown [id number] 2.16.840.1.213715.3.579.2.727 1950 Unknown [id number] 2.16.840.1.872780.3.579.2.727 1950 Unknown [id number] 2.16.840.1.652467.3.579.2.727 Unknown [id number] 2.16.840.1.318856.3.579.2.593 Unknown [id number] 2.16.840.1.189235.3.579.2.593 Unknown [id number] 2.16.840.1.170972.3.579.2.531 Unknown [id number] Social History Date Type Detail Facility Start: 09-05-2021 End: 08-13-2023 Tobacco smoking status Ex-smoker (finding) [employer] Other Start: 01-22-2023 End: 01-23-2023 Sex Assigned At Male [employer] Other Start: 1950 Sex Assigned At Male [facility] History of tobacco use Current smoker [facility] History of tobacco use Cigarette Smoker [facility] History of tobacco use Passive smoker [facility] Start: 01-22-2023 End: 01-23-2023 History of Social function [facility] Start: 1950 Sex Assigned At Not on file [facility] Start: 01-23-2023 Tobacco use and exposure Smokeless tobacco non-user [facility] Start: 01-23-2023 End: 02-20-2023 Alcohol intake Ex-drinker (finding) [facility] National Score (1-100), lower number is lower risk 64 [facility] Start: 05-22-2018 Tobacco smoking status NHIS Never smoked tobacco (finding) [facility] Functional Status Date Assessment Result Facility 08-13-2023 Functional Status N/A [facility] 05-06-2023 Functional Status N/A [facility] 12-25-2022 Functional Status N/A [facility] 11-12-2022 Functional Status N/A [facility] Clinical Notes 02-22-2021 to 08-13-2023 Note Date & Type Note Facility 08-13-2023 Hospital Discharge instructions Patient Education 08/13/2023 09:52:57 Benign Prostatic Hyperplasia Benign Prostatic Hyperplasia Benign prostatic hyperplasia (BPH) is an enlarged prostate gland that is caused by the normal aging process. The prostate may get bigger as a man gets older. The condition is not caused by cancer. The prostate is a walnut-sized gland that is involved in the production of semen. It is located in front of the rectum and below the bladder. The bladder stores urine. The urethra carries stored urine out of the body. An enlarged prostate can [...] urethra. Follow these instructions at home: Take [id number] and prescription medicines only as told by [...] provider. Document Revised: 10/18/2021 Document Reviewed: 10/18/2021 [employer] Patient Education 2022 [employer]. 08/13/2023 09:52:56 Urinary Incontinence Urinary Incontinence Urinary incontinence refers to a condition in which a person is unable to control where and when to pass urine. A person with this condition will urinate involuntarily. This means that the person urinates when he or she does not mean to. What are the causes? This condition may be caused by: Medicines. Infections. Constipation. Overactive bladder muscles. Weak bladder muscles. Weak pelvic floor muscles. These muscles provide support for the bladder, intestine, and, in women, the uterus. Enlarged prostate in men. The prostate is a gland near the bladder. When it gets too big, it can pinch the urethra. With the urethra blocked, the bladder can weaken and lose the ability to empty properly. Surgery. Emotional factors, such as anxiety, stress, or post-traumatic stress disorder (PTSD). Spinal cord injury, nerve injury, or other neurological conditions. Pelvic organ prolapse. This happens in women when organs move out of place and into the vagina. This movement can prevent the bladder and urethra from working properly. What increases the risk? The following factors may make you more likely to develop this condition: Age. The older you are, the higher the risk. Obesity. Being physically inactive. and childbirth. Menopause. Diseases that affect the nerves or spinal cord. Long-term, or chronic, coughing. This can increase pressure on the bladder and pelvic floor muscles. What are the signs or symptoms? Symptoms may vary depending on the type of urinary incontinence you have. They include: A sudden urge to urinate, and passing urine involuntarily before you can get to a bathroom (urge incontinence). Suddenly passing urine when doing activities that force urine to pass, such as coughing, laughing, exercising, or sneezing (stress incontinence). Needing to urinate often but urinating only a small amount, or constantly dribbling urine (overflow incontinence). Urinating because you cannot get to the bathroom in time due to a physical disability, such as arthritis or injury, or due to a communication or thinking problem, such as Alzheimer's disease (functional incontinence). How is this diagnosed? This condition may be diagnosed based on: Your medical history. A physical exam. Tests, such as: ?Urine tests. ?X-rays of your kidney and bladder. ?Ultrasound. ?CT scan. ?Cystoscopy. In this procedure, a health care provider inserts a tube with a light and camera (cystoscope) through the urethra and into the bladder to check for problems. ?Urodynamic testing. These tests assess how well the bladder, urethra, and sphincter can store and release urine. There are different types of urodynamic tests, and they vary depending on what the test is measuring. To help diagnose your condition, your health care provider may recommend that you keep a log of when you urinate and how much you urinate. How is this treated? Treatment for this condition depends on the type of incontinence that you have and its cause. Treatment may include: Lifestyle changes, such as: ?Quitting smoking. ?Maintaining a healthy weight. ?Staying active. Try to get 150 minutes of moderate-intensity exercise every week. Ask your health care provider which activities are safe for you. ?Eating a healthy diet. ?Avoid high-fat foods, like fried foods. ?Avoid refined carbohydrates like white bread and white rice. ?Limit how much alcohol and caffeine you drink. ?Increase your fiber intake. Healthy sources of fiber include beans, whole grains, and fresh fruits and vegetables. Behavioral changes, such as: ?Pelvic floor muscle exercises. ?Bladder training, such as lengthening the amount of time between bathroom breaks, or using the bathroom at regular intervals. ?Using techniques to suppress bladder urges. This can include distraction techniques or controlled breathing exercises. Medicines, such as: ?Medicines to relax the bladder muscles and prevent bladder spasms. ?Medicines to help slow or prevent the growth of a man's prostate. ?Botox injections. These can help relax the bladder muscles. Treatments, such as: ?Using pulses of electricity to help change bladder reflexes (electrical nerve stimulation). ?For women, using a medical billing service to prevent urine leaks. This is a small, tampon-like, disposable device that is inserted into the urethra. ?Injecting collagen or carbon beads (bulking agents) into the urinary sphincter. These can help thicken tissue and close the bladder opening. ?Surgery. Follow these instructions at home: Lifestyle Limit alcohol and caffeine. These can fill your bladder quickly and irritate it. Keep yourself clean to help prevent odors and skin damage. Ask your health care provider about special skin creams and cleansers that can protect the skin from urine. Consider wearing pads or adult diapers. Make sure to change them regularly, and always change them right after experiencing incontinence. General instructions Take awaw-ngj-ybgkfqi and prescription medicines only as told by your health care provider. Use the bathroom about every 3 4 hours, even if you do not feel the need to urinate. Try to empty your bladder completely every time. After urinating, wait a minute. Then try to urinate again. Make sure you are in a relaxed position while urinating. If your incontinence is caused by nerve problems, keep a log of the medicines you take and the times you go to the bathroom. Keep all follow-up visits. This is important. Where to find more information National [place] of Diabetes and Digestive and Kidney Diseases: www.niddk.nih.gov [place] [facility] [employer]: www.urologyhealth.org Contact a health care provider if: You have pain that gets worse. Your incontinence gets worse. Get help right away if: You have a fever or chills. You are unable to urinate. You have redness in your groin area or down your legs. Summary Urinary incontinence refers to a condition in which a person is unable to control where and when to pass urine. This condition may be caused by medicines, infection, weak bladder muscles, weak pelvic floor muscles, enlargement of the prostate (in men), or surgery. Factors such as older age, obesity, and childbirth, menopause, neurological diseases, and chronic coughing may increase your risk for developing this condition. Types of urinary incontinence include urge incontinence, stress incontinence, overflow incontinence, and functional incontinence. This condition is usually treated first with lifestyle and behavioral changes, such as quitting smoking, eating a healthier diet, and doing regular pelvic floor exercises. Other treatment options include medicines, bulking agents, medical devices, electrical nerve stimulation, or surgery. This information is not intended to replace advice given to you by your health care provider. Make sure you discuss any questions you have with your health care provider. Document Revised: 11/04/2020 Document Reviewed: 11/04/2020 [employer] Patient Education 2022 [employer]. 08/13/2023 09:52:52 Overactive Bladder, Adult Overactive Bladder, Adult Overactive bladder is a condition in which a person has a sudden and frequent need to urinate. A person might also leak urine if he or she cannot get to the bathroom fast enough (urinary incontinence). Sometimes, symptoms can interfere with work or social activities. What are the causes? Overactive bladder is associated with poor nerve signals between your bladder and your brain. Your bladder may get the signal to empty before it is full. You may also have very sensitive muscles that make your bladder squeeze too soon. This condition may also be caused by other factors, such as: Medical conditions: ?Urinary tract infection. ?Infection of nearby tissues. ?Prostate enlargement. ?Bladder stones, inflammation, or tumors. ?Diabetes. ?Muscle or nerve weakness, especially from these conditions: ?A spinal cord injury. ?Stroke. ?Multiple sclerosis. ?Parkinson's disease. Other causes: ?Surgery on the uterus or urethra. ?Drinking too much caffeine or alcohol. ?Certain medicines, especially those that eliminate extra fluid in the body (diuretics). ?Constipation. What increases the risk? You may be at greater risk for overactive bladder if you: Are an older adult. Smoke. Are going through menopause. Have prostate problems. Have a neurological disease, such as stroke, dementia, Parkinson's disease, or multiple sclerosis (MS). Eat or drink alcohol, spicy food, caffeine, and other things that irritate the bladder. Are overweight or obese. What are the signs or symptoms? Symptoms of this condition include a sudden, strong urge to urinate. Other symptoms include: Leaking urine. Urinating 8 or more times a day. Waking up to urinate 2 or more times overnight. How is this diagnosed? This condition may be diagnosed based on: Your symptoms and medical history. A physical exam. Blood or urine tests to check for possible causes, such as infection. You may also need to see a health care provider who specializes in urinary tract problems. This is called a urologist. How is this treated? Treatment for overactive bladder depends on the cause of your condition and whether it is mild or severe. Treatment may include: Bladder training, such as: ?Learning to control the urge to urinate by following a schedule to urinate at regular intervals. ?Doing Kegel exercises to strengthen the pelvic floor muscles that support your bladder. Special devices, such as: ?Biofeedback. This uses sensors to help you become aware of your body's signals. ?Electrical stimulation. This uses electrodes placed inside the body (implanted) or outside the body. These electrodes send gentle pulses of electricity to strengthen the nerves or muscles that control the bladder. ?Women may use a plastic device, called a pessary, that fits into the vagina and supports the bladder. Medicines, such as: ?Antibiotics to treat bladder infection. ?Antispasmodics to stop the bladder from releasing urine at the wrong time. ?Tricyclic antidepressants to relax bladder muscles. ?Injections of botulinum toxin type A directly into the bladder tissue to relax bladder muscles. Surgery, such as: ?A device may be implanted to help manage the nerve signals that control urination. ?An electrode may be implanted to stimulate electrical signals in the bladder. ?A procedure may be done to change the shape of the bladder. This is done only in very severe cases. Follow these instructions at home: Eating and drinking Make diet or lifestyle changes recommended by your health care provider. These may include: ?Drinking fluids throughout the day and not only with meals. ?Cutting down on caffeine or alcohol. ?Eating a healthy and balanced diet to prevent constipation. This may include: ?Choosing foods that are high in fiber, such as beans, whole grains, and fresh fruits and vegetables. ?Limiting foods that are high in fat and processed sugars, such as fried and sweet foods. Lifestyle Lose weight if needed. Do not use any products that contain nicotine or tobacco. These include cigarettes, chewing tobacco, and vaping devices, such as e-cigarettes. If you need help quitting, ask your health care provider. General instructions Take bnuq-wzv-zyogixb and prescription medicines only as told by your health care provider. If you were prescribed an antibiotic medicine, take it as told by your health care provider. Do not stop taking the antibiotic even if you start to feel better. Use any implants or pessary as told by your health care provider. If needed, wear pads to absorb urine leakage. Keep a log to track how much and when you drink, and when you need to urinate. This will help your health care provider monitor your condition. Keep all follow-up visits. This is important. Contact a health care provider if: You have a fever or chills. Your symptoms do not get better with treatment. Your pain and discomfort get worse. You have more frequent urges to urinate. Get help right away if: You are not able to control your bladder. Summary Overactive bladder refers to a condition in which a person has a sudden and frequent need to urinate. Several conditions may lead to an overactive bladder. Treatment for overactive bladder depends on the cause and severity of your condition. Making lifestyle changes, doing Kegel exercises, keeping a log, and taking medicines can help with this condition. This information is not intended to replace advice given to you by your health care provider. Make sure you discuss any questions you have with your health care provider. Document Revised: 12/19/2020 Document Reviewed: 12/19/2020 [employer] Patient Education 2022 [employer]. 08/13/2023 09:52:51 Kegel Exercises Kegel Exercises Kegel exercises can help strengthen your pelvic floor muscles. The pelvic floor is a group of muscles that support your rectum, small intestine, and bladder. In females, pelvic floor muscles also help support the uterus. These muscles help you control the flow of urine and stool (feces). Kegel exercises are painless and simple. They do not require any equipment. Your provider may suggest Kegel exercises to: Improve bladder and bowel control. Improve sexual response. Improve weak pelvic floor muscles after surgery to remove the uterus (hysterectomy) or after , in females. Improve weak pelvic floor muscles after prostate gland removal or surgery, in males. Kegel exercises involve squeezing your pelvic floor muscles. These are the same muscles you squeeze when you try to stop the flow of urine or keep from passing gas. The exercises can be done while sitting, standing, or lying down, but it is best to vary your position. Ask your health care provider which exercises are safe for you. Do exercises exactly as told by your health care provider and adjust them as directed. Do not begin these exercises until told by your health care provider. Exercises How to do Kegel exercises: 1.Squeeze your pelvic floor muscles tight. You should feel a tight lift in your rectal area. If you are a female, you should also feel a tightness in your vaginal area. Keep your stomach, buttocks, and legs relaxed. 2.Hold the muscles tight for up to 10 seconds. 3.Breathe normally. 4.Relax your muscles for up to 10 seconds. 5.Repeat as told by your health care provider. Repeat this exercise daily as told by your health care provider. Continue to do this exercise for at least 4 6 weeks, or for as long as told by your health care provider. You may be referred to a physical therapist who can help you learn more about how to do Kegel exercises. Depending on your condition, your health care provider may recommend: Varying how long you squeeze your muscles. Doing several sets of exercises every day. Doing exercises for several weeks. Making Kegel exercises a part of your regular exercise routine. This information is not intended to replace advice given to you by your health care provider. Make sure you discuss any questions you have with your health care provider. Document Revised: 08/10/2021 Document Reviewed: 08/10/2021 [employer] Patient Education 2022 [employer]. 08/13/2023 09:52:50 Hematuria, Adult Hematuria, Adult Hematuria is blood in the urine. Blood may be visible in the urine, or it may be identified with a test. This condition can be caused by infections of the bladder, urethra, kidney, or prostate. Other possible causes include: Kidney stones. Cancer of the urinary tract. Too much calcium in the urine. Conditions that are passed from parent to child (inherited conditions). Exercise that requires a lot of energy. Infections can usually be treated with medicine, and a kidney stone usually will pass through your urine. If neither of these is the cause of your hematuria, more tests may be needed to identify the cause of your symptoms. It is very important to tell your health care provider about any blood in your urine, even if it is painless or the blood stops without treatment. Blood in the urine, when it happens and then stops and then happens again, can be a symptom of a very serious condition, including cancer. There is no pain in the initial stages of many urinary cancers. Follow these instructions at home: Medicines Take ebbq-dxd-ejnmnoh and prescription medicines only as told by your health care provider. If you were prescribed an antibiotic medicine, take it as told by your health care provider. Do not stop taking the antibiotic even if you start to feel better. Eating and drinking Drink enough fluid to keep your urine pale yellow. It is recommended that you drink 3 4 quarts (2.8 3.8 L) a day. If you have been diagnosed with an infection, drinking cranberry juice in addition to large amounts of water is recommended. Avoid caffeine, tea, and carbonated beverages. These tend to irritate the bladder. Avoid alcohol because it may irritate the prostate (in males). General instructions If you have been diagnosed with a kidney stone, follow your health care provider's instructions about straining your urine to catch the stone. Empty your bladder often. Avoid holding urine for long periods of time. If you are female: ?After a bowel movement, wipe from front to back and use each piece of toilet paper only once. ?Empty your bladder before and after sex. Pay attention to any changes in your symptoms. Tell your health care provider about any changes or any new symptoms. It is up to you to get the results of any tests. Ask your health care provider, or the department that is doing the test, when your results will be ready. Keep all follow-up visits. This is important. Contact a health care provider if: You develop back pain. You have a fever or chills. You have nausea or vomiting. Your symptoms do not improve after 3 days. Your symptoms get worse. Get help right away if: You develop severe vomiting and are unable to take medicine without vomiting. You develop severe pain in your back or abdomen even though you are taking medicine. You pass a large amount of blood in your urine. You pass blood clots in your urine. You feel very weak or like you might faint. You faint. Summary Hematuria is blood in the urine. It has many possible causes. It is very important that you tell your health care provider about any blood in your urine, even if it is painless or the blood stops without treatment. Take nylu-kkc-wygcgpi and prescription medicines only as told by your health care provider. Drink enough fluid to keep your urine pale yellow. This information is not intended to replace advice given to you by your health care provider. Make sure you discuss any questions you have with your health care provider. Document Revised: 11/30/2020 Document Reviewed: 11/30/2020 [employer] Patient Education 2022 [employer] [facility] 05-06-2023 Hospital Discharge instructions Patient Education 05/06/2023 11:41:14 Benign Prostatic Hyperplasia Benign Prostatic Hyperplasia Benign prostatic hyperplasia (BPH) is an enlarged prostate gland that is caused by the normal aging process. The prostate may get bigger as a man gets older. The condition is not caused by cancer. The prostate is a walnut-sized gland that is involved in the production of semen. It is located in front of the rectum and below the bladder. The bladder stores urine. The urethra carries stored urine out of the body. An enlarged prostate can [...] urethra. Follow these instructions at home: Take namr-lpi-jqwglim and prescription medicines only as told by [...] provider. Document Revised: 10/18/2021 Document Reviewed: 10/18/2021 [employer] Patient Education 2022 [employer]. Follow Up Care 12/27/2022 13:41:01 With:DEANNA WADDELL, Elia Cardona, URL Address: [facility] [address], [place] [address]- When:Within 3 Month(s) [facility] 04-16-2023 Evaluation note Encounter Date Diagnosis Assessment [...] I Risk 3.9% 30-day risk of , [place], or cardiac arrest. DASI (Berger Activity Status [...] He will be seeing Dr. Huerta soon. Apr, Abnormality of abdominal aorta (ICD-10 - [...] of this and agrees to this plan. [facility] Other 12-26-2023 Evaluation note* Encounter Date Diagnosis Assessment Notes Treatment Notes Treatment Clinical Notes Mar, Pre-op evaluation (ICD-10 - Z01.818) [facility] Other 12-19-2023 Evaluation note* Encounter Date Diagnosis Assessment Notes Treatment Notes Treatment Clinical Notes Mar, Abnormal CBC (ICD-10 - R79.89) [facility] Other 12-18-2023 Evaluation note* Encounter Date Diagnosis [...] received results. These are requested today from [facility]. Mar, Obesity (BMI 35.0-39.9 without comorbidity) (ICD-10 - E66.9) Patient is advised to work on healthy diet choices and appropriate servings, weight control, regular exercise as directed, reduced fat intake, and salt avoidance. Patient voiced understanding of this and agrees to this plan. [facility] Other 12-05-2023 Evaluation note* Encounter Date Diagnosis [...] (ICD-10 - J40) See above treatment plan. [facility] Other 11-21-2023 Evaluation note* Encounter Date Diagnosis Assessment Notes Treatment Notes Treatment Clinical Notes Feb, COVID-19 (ICD-10 - U07.1) [facility] Other 11-08-2023 NoteHNO ID: [id number] Author: Kesha Clifton MD Service: ? Author Type: Physician Type: Progress Notes Filed: 02/20/2023 10:57 AM Note Text: PATIENT NAME: Rachel Ackerman CLINIC NO.: [id number] ATTENDING PHYSICIAN: Kesha Clifton MD DATE OF [...] Range Status 01/23/2023 7.9 % Final Abs [place] Date Value Ref Range (more content not included)...[facility] 02-20-2023 History of Present illness Narrative* Kesha Clifton MD - 02/20/2023 10:50 AM EST Images from the original note were not included. PATIENT NAME: Rachel Cardona [facility] NO.: [id number] ATTENDING PHYSICIAN: Kesha lCifton MD DATE OF SERVICE: February 20, [address] hicks is an update on a follow up [...] Range Status 01/23/2023 7.9 % Final Abs [place] Date Value Ref Range Status 01/23/2023 0.60 [...] do not hesitate to contact me at [phone]. Kesha Clifton MD Hematology/Medical Oncology [facility] spent a total of 20 minutes on the date of the service which included preparing to see the patient, eiue-xa-xhby patient care, completing clinical documentation, obtaining and/or reviewing separately obtained history, and counseling and educating the patient/family/caregiver. CC: Elia Huerta MD [facility] Miscellaneous Notes* Telephone Encounter - Nelsy Delaney Patrica L - 01/28/2023 3:07 PM EDT Office note faxed to Dr. Huerta. * Telephone Encounter - Crystal Cooley RN - 01/28/2023 2:28 PM EDT Nimisha can you forward the progress note as requested per BERNARDINO please Crystal Cooley RN * Telephone Encounter - Kesha [...] Crystal Cooley RN Triage please fax to [phone] or call [phone] c/o Mary documented in this encounterOhio [facility]10-11-2023 NoteHNO ID: [id number] Author: Kesha Clifton MD Service: ? Author Type: Physician Type: Progress Notes Filed: 01/23/2023 12:34 PM Note Text: PATIENT NAME: Rachel Ackerman CLINIC NO.: [id number] ATTENDING PHYSICIAN: Kesha Clifton MD DATE OF [...] Heart: RRR without mur (more content not included)...[facility] 12-26-2022 [id number]:127[facility]09-12-2023 Hospital Discharge instructions Patient Education 12/25/2022 [...] HUERTA Address: [facility] [address] [place] [address] [facility] (1) When: Unknown Comments:Office will call to schedule follow up [facility]09-12-2023 NoteCustom Cystoscopy ? Voiding after the [...] if you have a fever over 100 degrees.[facility] 12-25-2022 Evaluation + Plan noteExtracted from: Title:Urology Progress Note Author:Mario HUERTA MD Date:12/25/22 Impression and Plan Impression: #1. This gentleman has BPH with LUTS refractory to medications. He is obstructed urodynamically. He is desirous for a TURP. Plan: #1. He will continue his Flomax and pro scar for now. We are getting him scheduled for TURP under anesthesia. [facility]07-31-2023 Hospital Discharge instructions Patient Education 11/12/2022 [...] including vitamins, herbs, eye drops, creams, and imfv-kal-tzkuyzz medicines. Any problems you or family members [...] provider tells you to take them. Taking hire-opj-hlrentc medicines, vitamins, herbs, and supplements. Surgery safety [...] provider. Document Revised: 12/26/2021 Document Reviewed: 12/26/2021 Complete [employer] Patient Education 2022 [employer]. 11/12/2022 13:23:11 Urodynamic Testing Urodynamic Testing Urodynamic [...] including vitamins, herbs, eye drops, creams, and atnd-shk-hgdkzqu medicines. ?Whether you are or may be [...] provider. Document Revised: 12/13/2021 Document Reviewed: 11/04/2020 [employer] Patient Education 2022 [employer]. 11/12/2022 13:13:30 Benign Prostatic Hyperplasia Benign Prostatic [...] urethra. Follow these instructions at home: Take vxwv-bxe-khqgccm and prescription medicines only as told by [...] provider. Document Revised: 10/18/2021 Document Reviewed: 10/18/2021 Elsevier Patient Education 2022 [employer]. Follow Up Care 09/05/2021 11:51:48 With:DEANNA WADDELL, Elia Cardona, URL Address: [facility] [address], [place] [phone] When: Unknown Comments:sched urodynamics and cysto [facility] 06-15-2023 Evaluation note* Encounter Date [...] De Leon, under direct supervision of Patrica Cruz,DNP,[employer],FIRE ALARM DISPATCHER. Document reviewed and amended by provider signed [...] of this and agrees to this plan. [facility] Other 11-14-2022 Evaluation note* Encounter Date Diagnosis [...] due to some fluid behind right ear. [facility] Other 05-24-2022 Hospital Discharge instructions Patient Education [...] urethra. Follow these instructions at home: Take iaua-cxb-enabapn and prescription medicines only as told by [...] 04/01/2006 Document Revised: 02/24/2019 Document Reviewed: 05/06/2017 Complete [employer] Patient Education 2020 [employer]. Follow Up Care 09/01/2020 11:16:04 With:Miguel Martinez MD, Will Carmichael, URO Address: [facility] [address], [place] [address]- When: Unknown [facility] 05-12-2022 Evaluation note* Encounter Date Diagnosis Assessment Notes Treatment Notes Treatment Clinical Notes August, Medicare annual wellness visit, initial (ICD-10 - Z00.00) Personalized health advice was given to the beneficiary including a written plan for screenings discussed and provided. Advanced care planning reviewed and/or information given as requested. The above visit was performed by Radha COLLINS, under direct supervision of Patrica Cruz, DNP,[employer], FIRE ALARM DISPATCHER. Document reviewed and amended by provider signed [...] screening done. PSA screening lab ordered today. [facility] Other 11-10-2021 Evaluation note* Encounter Date Diagnosis [...] exercise as directed, and reduce fat intake. [place] [employer] Other Evaluation + Plan note Future Appointments Appointment Date:09/11/2022 09:15:00 AM Scheduled Provider:Will Rivera Jr., MD Location:[facility] Appointment Type:URO Office Visit Diagnostic Tests Pending * PSA Total 09/05/21 [facility] evaluation + Plan note Future Appointments Appointment Date:12/11/2022 08:15:00 AM Scheduled Provider: Location:[facility] Appointment Type:Urology CALL PAT FT Appointment Date:12/25/2022 03:00:00 PM Scheduled Provider: Location:[facility] Appointment Type:Urology FT Appointment Date:12/25/2022 03:45:00 PM Scheduled Provider: Location:[facility] Appointment Type:Urology FT [facility] evaluation + Plan note Future Appointments Appointment Date:05/06/2023 10:45:00 AM Scheduled Provider:Elia HUERTA MD Location:[facility] Appointment Type:URO Office Visit [facility] evaluation + Plan note Future Appointments Appointment Date:08/05/2023 09:30:00 AM Scheduled Provider:Elia HUERTA MD Location:[facility] Appointment Type:URO Office Visit [facility] evaluation + Plan note Future Appointments Appointment Date:10/14/2023 11:45:00 AM Scheduled Provider:Elia HUERTA MD Location:[facility] Appointment Type:URO Office Visit [facility] evaluation noteNo InformationNort [employer] Other Evaluation noteNo assessment information available [facility] Work Phone: Evaluation note* Diagnosis Thrombocytopenia (HCC)- Primary Thrombocytopenia, unspecified Platelets decreased (HCC) Thrombocytopenia, unspecified [facility] Onset Date Resolution Status Abnormality of abdominal aorta acute Allergic rhinitis acute Asthma acute Basal cell carcinoma of skin acute BPH (benign prostatic hyperplasia) acute Chronic maxillary sinusitis acute Generalized anxiety disorder acute Mixed hyperlipidemia acute Moderate episode of recurrent major depressive disorde r acute Obstructive sleep apnea (adult) (pediatric) acute Temporary low platelet count acute [id number] acute [facility] Work Phone: Hisnwli general Narrative - Reported* Type Description Date [...] 02/2017 Surgical History tonsillectomy Hospitalization History see [facility] Other [facility] general Narrative - Reported* Type Description Date [...] total knee replacement. 2020 Hospitalization History see [facility] Other Hisor[facility] general Narrative - Reported* Type Description Date [...] total knee replacement. 2020 Hospitalization History see [facility] Other Hospital course Narrative No data available for this section [facility] Hospital Discharge instructions No data available for this section [facility] Hospital Discharge instructionsAmbulatory Orders* Referral to Pulmonology Location: None Selected [facility] Work Phone: Progress note No data available for this section [facility] Summary Purpose Family History No Family History Records Found Relationship Condition Age at Onset Recorded Date/T kareem father Unknown grandparent Unknown Not Specified Malignant neoplasm Unknown Unknown sister Unknown Malignant neoplasm Unknown Malignant neoplasm of bone Unknown Advance Directives No Advanced Directives Records Found Advance Directive Response Recorded Date/ Time Advance Directives No May 19, 2018 2:53pm Advance Directive Response Recorded Date/ Time Advance Directives No May 19, 2018 1:53pm Hospital Course Note [facility] 2SOUT Clinical Discharge Summary PERSON INFORMATION Name RACHEL ACKERMAN Age 68 Years 1950 Sex MALE Language Polish PCP Patrica Cruz DNP Marital Status Med Service Med/Surg Acct# Arrival 06/01/2019 06:00:00 Visit Reason SURGERY - RIGHT TOTAL KNEE Acuity LOS Address: [address] [place] [address] Comment: PROVIDER INFORMATION VITALS INFORMATION Vital Sign [...] history): All Problems Alcoholism / SNOMED CT 83764424 / Confirmed Anxiety / SNOMED CT 76508500 / Confirmed Asthma / SNOMED CT 750136732 / Confirmed Depression / SNOMED CT 16378156 / Confirmed Former smoker / SNOMED CT 20514151 / Confirmed Hyperlipidemia / SNOMED CT 64089409 / Confirmed Skin cancer / SNOMED CT 4312643631 / Confirmed Sleep apnea / SNOMED CT 19039998 / Confirmed Physical Examination VS/Measurements Vital Signs (last 24 hrs) Last Charted Heart Rate Peripheral 87 bpm (JUN 01 09:48) Resp Rate 20 br/min (JUN 01 09:48) SBP H 147mmHg (JUN 01:48) DBP 80 [...] history): All Problems Alcoholism / SNOMED CT 19664491 / Confirmed Anxiety / SNOMED CT 05205279 / Confirmed Asthma / SNOMED CT 147012803 / Confirmed Depression / SNOMED CT 62433370 / Confirmed Former smoker / SNOMED CT 77055865 / Confirmed Hyperlipidemia / SNOMED CT 97540870 / Confirmed Skin cancer / SNOMED CT 0250190386 / Confirmed Sleep apnea / SNOMED CT 77552533 / Confirmed Physical Examination VS/Measurements Vital Signs (last 24 hrs) Last Charted Heart Rate Peripheral 87 bpm (B 09:48) Resp Rate 20 br/min (JUN 01 09:48) SBP H 147mmHg (JUN 01 09:48) DBP 80 mmHg (JUN 01 09:48) SpO2 97 % (JUN 01 09:48) Weight 109.50 kg (JUN 01 06:25) Height [...] lower urinary tract symptoms (N40.1) Referral Organization [facility] Referring Provider First Name Patrica Referring Provider Last Name Anthony Referring Provider Specialty Nurse Pract itioner Referred Organization [facility] Referred Provider Eduardo Rogers Referred Address [address] [facility] [address],[place], [place],[address] Referred Provider Specialty Urology Referral Priority Routine General Notes Daisy Pierre 11:04:12 AM >referral received and faxed Chief Complaint and Reason for Visit Chief Complaint Sleep apnea annual f ollow up Chief Complaint See order Chief Complaint See order Surgical Clearance 3 month follow up Reason for Visit Abnormality of abdom inal aorta Allergic rhinitis Asthma Basal cell carcinoma of skin BPH (benign prostatic hyperplasia) Chronic maxillary sinusitis Generalized anxiety disorder Mixed hyperlipidemia Moderate episode of recurrent major depressive disorder Obstructive sleep apnea (adult) (pediatric) Temporary low platelet count [id number] Additional Source Comments (unrecognized sect ion and content) No Status Records FoundNo Status Records FoundNo Status Records FoundNo Status Records FoundNo Status Records FoundNo Status Records Found INFORMATION SOURCE (unrecogn ized section and content) DATE CREATED AUTHOR 06/16/2019 [facility] DATE CREATED AUTHOR AUTHOR'S ORGANIZ ATION [facility]/24/2020 [facility] DATE CREATED AUTHOR AUTHOR'S ORGANIZ ATION 02/21/2023 [facility] DATE CREATED AUTHOR AUTHOR'S ORGANIZ ATION 05/24/2023 [facility] DATE CREATED AUTHOR AUTHOR'S ORGANIZ ATION 08/18/2023 [facility] DATE CREATED AUTHOR AUTHOR'S ORGANIZ ATION 10/13/[address] [facility] REASON FOR VISIT (unrecogniz ed section [...] DNP Primary Care Provider, Attending Provider Active Team Status: Inactive Member Role Status Dates Patrica Cruz DNP Primary Care Provid er, Attending Provider Active Start: April 13, 2023 End: April 13, 2023 Team Status: Inactive Member Role Status Dates Patrica Cruz DNP Attending Provider Active S tart: April 16, 2023 End: April 16, 2023 Team Status: Inactive Member Role Status Dates Patrica Cruz DNP Primary Care Provid er, Attending Provider Active Start: July 08, 2023 End: July 08, 2023 Goals (unrecognized section and content) Goals may be documented in a n alternate section Source Comments (unrecognize d section and content) In the event this informatio n is protected by the Federal Confidentiality of Alcohol and Drug Abuse Patient Records regulations: The Federal rules restrict any use of the information to criminally investigate or prosecute any alcohol or drug abuse patient.[facility] the event this information is protected by the Federal Confidentiality of Alcohol and Drug Abuse Patient Records regulations: The Federal rules restrict any use of the information to criminally investigate or prosecute any alcohol or drug abuse patient.[facility] SystemIn the event this information is protected by the Federal Confidentiality of Alcohol and Drug Abuse Patient Records regulations: The Federal rules restrict any use of the information to criminally investigate or prosecute any alcohol or drug abuse patient.[facility] FOR RECORDS PERTAINING TO PATIENTS WHO ARE [...] BE BASED ON THE PRIMARY CLINICAL RECORDS. [employer] [facility]. provides no warranty or guarantee of the accuracy or completeness of information in this document.
--- NOTE | 2023-10-14 16:30 | PE_ITS ---
The [address] [address] Patient Name: RACHEL HENRY MRN: [id number] date: 1950 Sex: M Assigned Patient Location: PETCT Current Patient Location: PETCT Accession/Order Number: [id number] Exam Date: 10/14/2023 16:22 Report Date: 10/16/2023 22:21 At the request of: HUMPHREY GONZALEZ Procedure: PET skull to mid thigh PET/CT: HISTORY: Abnormal CT. COMPARISON: CT chest 09/19/2023. TECHNIQUE: The patient was injected with 13.85 mCi of F-18 fluorodeoxyglucose (FDG), and an emission scan was performed from the base of the skull to the mid thigh. Noncontrast CT was performed for attenuation correction and anatomic localization. The blood glucose level was 91 mg/dl. The uptake time was 49 minutes. FINDINGS: HEAD AND NECK: There is a physiologic distribution of activity, with no hypermetabolic foci. CHEST: The SUV max of the mediastinum = 4.1 using the patient's body weight as the normalization method. Previously noted opacity at the lingula is mildly FDG avid on image 116 with SUV max 2.3. There is no hypermetabolic mediastinal or hilar adenopathy. ABDOMEN AND PELVIS: There is a physiologic distribution of activity within the liver, spleen, adrenal glands, urinary tract and bowel, with no hypermetabolic foci. MUSCULOSKELETAL SYSTEM: There is a focus of mild activity within the left sixth anterior rib on image 125 with a probable subtle nondisplaced fracture noted on CT. There is increased activity also noted in the left lateral aspect of the L1-L2 disc space which is likely degenerative in nature. There is a small focus of increased activity in the superior right iliac bone on image 207 with SUV max 4.[address] ADDITION[address] CT FINDINGS: There is mild atherosclerotic coronary artery calcification and there is diffuse calcification of the aorta and iliac arteries. There is mild bibasilar atelectasis and/or scarring. There is a 4.9 cm cyst in the upper pole of the left kidney. There is a 3 cm duodenal diverticulum with an air-fluid level. There are multiple diverticula throughout the colon with no acute diverticulitis. There are moderate fat-containing bilateral inguinal hernias. PET/PET skull to mid thigh IMPRESSION: 1. The previously noted lingular opacity shows only mild FDG uptake and is likely due to atelectasis or scarring but recommend a follow-up CT in 3 months. 2. Indeterminate focus of mild activity in the right iliac bone which may be artifactual in nature and there is no CT correlate. MRI may be considered. 3. Mild activity in left sixth anterior rib with a probable nondisplaced fracture on CT. 3. Additional CT findings as described above. Electronically authenticated by: FLO KANG Date: 10/16/2023 22:21
== END 2023-10-14 15:21 | disposition home or self-care (01) ==
LOC: PETCT 15:20
PROVIDERS: PCP Nurse Practitioner Family; Visit Provider Internal Medicine
DX: R91.8 Other nonspecific abnormal finding of lung field (principal)
CPT/HCPCS: 78815; A9552

== ENCOUNTER 2024-01-15 09:26 | Outpatient (OUT) | payer MEDICARE, OTHER, SELFPAY ==
--- NOTE | 2024-01-15 09:29 | CT_ITS ---
[address] [address] Patient Name: RACHEL HENRY MRN: [id number] date: 1950 Sex: M Assigned Patient Location: CT Current Patient Location: Accession/Order Number: [id number] Exam Date: 01/15/2024 09:32 Report Date: 01/16/2024 11:02 At the request of: HUMPHREY GONZALEZ Procedure: CT chest wo con EXAMINATION: CT chest wo con HISTORY: Lung Mass R91.8 COMPARISON: 09/19/2023, 10/14/2023 TECHNIQUE: Multi-planar CT images were created with IV contrast. Axial, Coronal, and Sagittal images. Dose reduction techniques were achieved by using automated exposure control and/or adjustment of mA and/or kV according to patient size and/or use of iterative reconstruction technique. FINDINGS: LUNGS: r slight decrease in overall size of a focal opacity in the lingula the largest portion now measuring 1.5 x 0.9 cm axial image 72. Additional patchy and linear opacities identified in the dependent portions of the lungs, I favor atelectasis and/or scarring. No new focal nodule or mass PLEURA: No mass, effusion, or pneumothorax. VASCULATURE: No abnormality. EVA: No mass or adenopathy. MEDIASTINUM: No mass or adenopathy. CARDIAC: No enlargement or pericardial effusion Coronary arteries: Mild calcifications AORTA: No aneurysm or dissection. CHEST WALL: No mass or axillary adenopathy. BONES: No bone lesion or fracture. LIMITED ABDOMEN: No suspicious findings. Limited images of the upper abdomen. OTHER: Negative. CT/CT chest wo con IMPRESSION: Slight decrease in size of the lingular opacity. Consider 6 month follow-up to document stability Electronically authenticated by: SCARLET ISLAS Date: 01/16/2024 11:02
--- OUTSIDE RECORDS SUMMARY | 2024-01-15 09:46 | XMS_ITS | CCD ---
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 Name Role Phone REQUEST, DR NONE LISTED Attending Unavaila ble REQUEST, NONE LISTED Consulting Unavaila ble REQUEST, DR NONE LISTED Admitting Unavaila ble PATRICA CRUZ Primary Care Unavailable PATRICA CRUZ Attending Unavailable PATRICA CRUZ Primary Care Unavailable PATRICA CRUZ Admitting Unavailable MIGUEL WESTFALL, DR WILL Carmichael Consulting Unavailabl e MIGUEL WESTFALL, DR WILL Carmichael Admitting Unavailabl e ANTHONY, PATRICA Primary Care Unavailable MIGUEL WESTFALL, DR WILL Carmichael Attending Unavailabl e PATRICA CRUZ Consulting Unavailable PATRICA CRUZ Primary Care Unavailable PATRICA CRUZ Admitting Unavailable PATRICA CRUZ Attending Unavailable REQUEST, NONE LISTED Admitting Unavaila ble REQUEST, NONE LISTED Attending Unavaila ble REQUEST, NONE LISTED Consulting Unavaila ble PATRICA CRUZ Primary Care Unavailable PATRICA CRUZ Primary Care Physician Patrica Cruz Unavailable Patrica Cruz Unavailable GUICHO Cruz Primary Care Provider MD Genaro Sheldon Attending Provider [phone] Unavailable Primary Care Provider Unavailabl e ABBY KESHA Referring Unavailable KEOU, KESHA Attending Unavailable BERNARDINO CLIFTONRA Attending Unavailable GUICHO Cruz Primary Care Provider GUICHO Cruz Attending Provider Patrica Cruz Attending Unavailable Patrica Cruz Admitting Unavailable Patrica Cruz Primary Care Unavailable Genaro Sheldon Admitting Unavailable Genaro Sheldon Attending Unavailable Patrica Cruz Primary Care Unavailable GUICHO Cruz Primary Care Provider GUICHO Cruz Attending Provider [phone] JORDANA ESCAMILLA Attending Unavailable JORDANA ESCAMILLA Referring Unavailable MARIA FERNANDA ECHOLS Attending Unavailable HUERTA, Elia R Attending Unavailable HUERTA, Elia R Attending Unavailable HUERTA, Elia R Attending Unavailable OrHaydee roberts Attending Unavailable HUERTA, Elia R Attending Unavailable HUERTA, Elia R Attending Unavailable HUERTA, Elia R Attending Unavailable HUERTA, Elia R Referring Unavailable HUERTA, Elia R Admitting Unavailable HUERTA, Elia R Attending Unavailable HUERTA, Elia R Admitting Unavailable HUERTA, Elia R Attending Unavailable HUERTA, Elia R Attending Unavailable HUERTA, Elia R Attending Unavailable HUERTA, Elia R Attending Unavailable HUERTA, Elia R Admitting Unavailable Allergies Allergy Classification Reported Allergen(s) Allergy Type Date of Onset Reaction(s) Facility Adrenergic Antagonists (3 sources) Doxazosin; Translations: [Doxazosin] Drug Allergy 5 Anaphylaxis (disorder) [facility] Repository (20 sources) Doxazosin; Translations: [doxazosin] Drug Allergy 3 Anaphylaxis (disorder), anaphylaxis [employer] Other (1 source) Doxazosin Drug Allergy 4 [facility] Repository Medications Current Medications Medication Drug Class(es) [...] 06/26/19 Status: Ordered take 1 capsule by [facility] every six hours Acetaminophen 500 MG 1 capsule as needed Orally every 6 hrs Active Comment on above: Take 500 mg by mouth every 6 hours as needed. [id number] 200 actuat albuterol 0.09 mg/actuat metered dose [...] tablet (20 sources) HMG-CoA Reductase Inhibitor Start: take 1 tablet by mouth once daily [...] mcg-25 mcg/inh inhalation powder (6 sources) Start: take 1 puff(s) by inhalation once daily [...] Daily, # 90 tab(s), Refills(s) 3, Pharmacy: [facility]/pharmacy #[id number], 174, cm, 09/05/21 10:55:00 EDT, Height/Length [...] tablet (20 sources) Serotonin Reuptake Inhibitor Start: 10-14-2023 take 1 tablet by mouth twice daily Zoloft 100 mg Tab 100 mg = 1 tab(s), Oral, BID, Refills(s) 0 Start Date: 10/14/23 Status: Ordered Start: 07-08-2023 take 1 tablet by urszula th twice daily Sertraline Active 1 TAB PO [...] 06/26/19 Status: Ordered take 1 tablet by urszula th twice daily Sertraline HCl 100 MG TAKE [...] dose, # 30 tab(s), Refills(s) 1, [id number], 179, cm, 08/13/23 9:15:00 EDT, Height/Length Dosing, 109, kg, 08/13/23 9:15:00 EDT, Weight Dosing Start Date: 09/12/23 Status: Ordered Start: 08-13-2023 End: 09-12-2023 take 1 tablet by mouth once daily solifenacin 5 mg Tab 5 mg = 1 tab(s), Oral, Daily, X 30 day(s), # 30 tab(s), Refills(s) 0, [id number], 179, cm, 08/13/23 9:15:00 EDT, Height/Length Dosing, 109, kg, 08/13/23 9:15:00 EDT, Weight Dosing Start Date: 08/13/23 Stop Date: 09/12/23 Status: Ordered tamsulosin hydrochloride 0.4 mg oral capsule (20 sources) alpha-Adrenergic Desriae Start: 09-05-2021 take 1 capsule by mouth once daily tamsulosin 0.4 mg Cap 0.4 mg = 1 cap(s), Oral, Daily, # 90 cap(s), Refills(s) 3, [id number], 174, cm, 09/05/21 10:55:00 EDT, Height/Length Dosing, 109.1, kg, 09/05/21 10:55:00 EDT, Weight Dosing Start Date: 08/19/22 Status: Ordered Comment on above: Take 0.4 mg by mouth once daily. Trelegy Ellipta 200 mcg-62.5 mcg-25 mcg/inh inhalation powder (2 sources) Start: 10-14-2023 Trelegy Ellipta 200 mcg-62.5 mcg-25 mcg/inh inhalation powder Refill(s) 0 Start Date: 10/14/23 Status: Ordered Ventolin HFA 90 mcg/inh Aerosol (8 sources) Start: 06-26-2019 take 1 puff(s) by [...] procedure, # 2 tab(s), Refills(s) 0, Pharmacy: [facility]/pharmacy #[id number], 174, cm, 11/12/22 12:36:00 EDT, Height/Length [...] 08-24-2021 Chronic Genitourinary symptoms and ill-defined conditions (20 sources) Incontinence; Translations: [Post-micturition incontinence ] Onset: [...] Onset: 02-22-2021 Resolved: 08-24-2021 06-26-2019 Chronic Osteoarthritis (8 sources) Arthritis 07-01-2019 Chronic Other circulatory disease (1 source) Elevated blood-pressure reading, without diagnosis of hypertension Episodic Other diseases of bladder and urethra (2 sources) Detrusor overactivity; Translations: [Overactive bladder] Onset: 08-13-2023 Chronic Other diseases of bladder and urethra (2 sources) Overactive bladder 10-14-2023 Chronic Other diseases of kidney and ureters [...] conditions (not mental disorders or infectious disease) (5 sources) Encounter for screening for malignant neoplasm [...] of mental health and substance abuse codes (8 sources) Ex-smoker 08-27-2019 Episodic Unclassified (1 source) Encounter for other preprocedural examination; Translations: [Encounter for other preprocedural examination] Onset: 04-13-2023 Unclassified (3 sources) Patient encounter status 08-12-2023 Past or Other Problems Problem Classification Problem Date Documented Da te Episodic/Chronic Viral infection (2 sources) COVID-19 Results Test Name Value Interpretation Reference Range Facility CHEMISTRYOrdered By: SYSTEM SYSTEM on 10-14-2023 Prostate specific Ag [Mass/Vol] 0.4 ng/mL Normal 0.1 - 3.5 ng/mL [facility] Comment on above: Interpretive Data: T he concentration of PSA determined by different manufacturers can vary due to differences in assay methods and reagent specificity. Values obtained from different assay methods cannot be used interchangeably. The methodology used for this result was chemiluminescence using [employer]'s Access Hybritech PSA reagent. PSA Screen, Totalon 10-14-19 Prostate specific Ag [Mass/Vol] 0.4 ng/mL Normal 0.1-3.5 [facility] Comment on above: Result Comment: The concentration of PSA determined by different manufacturers can vary due to differences in assay methods and reagent specificity. Values obtained from different assay methods cannot be used interchangeably. The methodology used for this result was chemiluminescence using [employer] Access Hybritech PSA reagent. Performed By: #### 1 [id number] #### [facility] [address] [place] [address] Urology Office/Clinic Noteon 10-14-2023 Urology Office/Clinic Note Urology Office/Clinic Note Chief Complaint OAB HPI Staff 2 month f/u DX: OAB, Urge Incontinence, BPH, Urinary Retention, Gross Hematuria S/P TURP 04/18/23 *Started on Solifenacin 5-10mg qd therapy from O at time of last encounter (worsening urgency). Continues Finasteride 5mg qd Dysuria: no Incomplete bladder emptying: sometimes Hematuria: no Frequency: every few hours Urgency: no Nocturia: 1-2x Stream: pt states that he has hesitancy now that he has been taking Solifenacin Leaking: no Post void dripping: no Wearing pads/ Depends: no Urge incontinence: no Stress incontinence: no Incontinence without Sensory Awareness: no Abdominal pain: no Flank pain: no Sexual complaints: no History of Present Illness Tests reviewed: reviewed UA I have reviewed the previous health record information and history for this patient from Haydee Camilo NP. I have reviewed and verified the staff HPI to be accurate for this encounter. Review of Systems PHQ Score Initial [...] See HPI. Physical Exam Vitals & Measurements T: 37 ?C(Temporal Artery) HR: 68(Peripheral) RR: 16 BP: 129/78 HT: 70 in HT: 179 cm WT: 110 kg WT: 242 lb BMI: 34.33 General Appearance: alert, no distress, well nourished, well developed male. Assessment/Plan 1. BPH with urinary obstruction (N40.1: Benign prostatic hyperplasia with lower urinary tract symptoms) S/p Cysto & Uro's 12/25/22 S/p TURP 04/18/23 - Path shows benign prostatic tissue with stromal hyperplasia Stopped Tamsulosin after TURP. UA today negative for blood and infection. Taking Finasteride 5mg qd. Has had improvement in stream, straining, and intermittency since TURP. PSA 08/31/20 - 0.63 (Finasteride 1.26) 10/08/22 - 0.74 (Finasteride 1.58) No recent PSA. Offered to have this drawn IO. Pt wishes to proceed. -Cont Finasteride wo changes for now -PSA to be drawn IO. Will call pt with results. If wnl, repeat level in 1 year. 2. OAB (overactive bladder) (N32.81: Overactive bladder) 3 mos PO TURP, pt had frequency q1hr. PVR was 44 mL. Started on Solifenacin 5mg qd x1 month at prior OV 08/13/23, titrated up to 10mg qd. Mild SE of dry mouth. Feels this has improved urgency. However reports he now has some hesitation. Discussed pt is likely experiencing efficacy of TURP and OAB med is no longer indicated. Recommended pt to stop med. -D/c Solifenacin x2-3 wks -If sxs worsen again, consider restarting Solifenacin 5mg qod 3. Urge incontinence (N39.41: Urge incontinence) No longer wearing depends. -See #2 Follow-up With When Contact Information DEANNA WADDELL, Elia Cardona, URL [facility] [address] , [place] [address]- [phone] Additional Instructions: 6 mos (no labs) Patient Education Benign Prostatic Hyperplasia I, Karen Chaudhary, personally scribed for Dr. Huerta on 10/14/2023 12:33:05. . Documentation recorded by the jorgeibleona, Karen Chaudhary, accurately reflects the services(s) I performed and decisions made by me. Authenticated by Dr. Huerta on 10/14/2023 12:48:11. Problem List/Past Medical History Ongoing Asthma BPH with urinary obstruction Former smoker Generalized anxiety disorder Gross hematuria Hyperlipidemia Incontinence Moderate episode of recurrent major depressive disorder Nocturia OAB (overactive bladder) Obstructive sleep apnea Post-void dribbling Prediabetes Prostate cancer screening Urge incontinence Urinary frequency Urinary retention Urinary urgency Historical [...] Tab, 80 mg= 1 tab(s), Oral, Daily busPIRone 30 mg oral tablet, 30 mg= 1 tab(s), Oral, BID finasteride 5 mg Tab, 5 mg= 1 tab(s), Oral, Daily, 3 refills sertraline 100 mg Tab, Oral, Daily solifenacin 10 mg Tab, 10 mg= 1 tab(s), Oral, Daily, 1 refills Trelegy Ellipta 200 mcg-62.5 mcg-25 mcg/inh inhalation powder Ventolin HFA 90 mcg/inh Aerosol, Inhalation, q6hr Zetia 10 mg Tab, 10 mg= 1 tab(s), Oral, Daily Zoloft 100 (more content not included)... Normal [facility] Comment on above: Result Comment: Elec tronically Signed By: Elia HUERTA MD\.br\Date and Time Signed: 10/14/23 12:48 EDT\.br\Electronically Co-Signed By: Karen Chaudharybr\Date and Time Co-Signed: 10/14/23 12:33 EDT [place] 08-14-2023 Screens [id number]#1.00T IFF Normal [facility] Screens [id number]#1.0 0TIFF Normal [facility] Ambulatory Visit Summaryon 0 08-13-2023 Ambulatory Visit Summary RACHEL ACKERMAN :1950 Visit Date:08/13/2023 Ambulatory Visit Instructions Your Diagnosis OAB (overactive bladder) Urge urinary incontinence BPH with urinary obstruction Urinary retention Gross hematuria Prostate cancer screening Your Care Team Attending Physician - MASOOD Camilo APRN, Haydee Campos Primary Care Physician - PATRICA CRUZ CNP [...] WADDELL, Elia Cardona Where: [facility] Normal [facility] Patient Educationon 08-13-19 Patient Education Obstetrics [...] health care provider. General instructions ? Take qbwg-qlw-qtubjbl and prescription medicines only as told by [...] monitor yo (more content not included)... Normal [facility] Urology Office/Clinic Noteon 08-13-2023 Urology Office/Clinic [...] with voice recognition artificial intelligence software, specifically [employer]iez, Druidly and or [email or web address]. Substitutions may have occurred due to the [...] day(s), # 30 tab(s), Refills(s) 0, Pharmacy: [facility]/pharmacy #[id number], 179, cm, 08/13/23 9:15:00 EDT, Height/Length Dosing, 109, kg, 08/13/23 9:15:00 EDT, Weight Dosing solifenacin, 10 mg = 1 tab(s), Oral, Daily, to start after completion of 1 month 5 mg dose, # 30 tab(s), Refills(s) 1, Pharmacy: [facility]/pharmacy #[id number], 179, cm, 08/13/23 9:15:00 EDT, Height/Length Dosing, 109, kg, 08/13/23 9:15:00 EDT, Weight Dosing 2. Urge urinary incontinence (N39.41: Urge incontinence) Patient is wearing depends throughout the day, changes 2-3 times. See #1. Ordered: solifenacin, 5 mg = 1 tab(s), Oral, Daily, X 30 day(s), # 30 tab(s), Refills(s) 0, Pharmacy: [facility]/pharmacy #[id number], 179, cm, 08/13/23 9:15:00 EDT, Height/Length Dosing, 109, kg, 08/13/23 9:15:00 EDT, Weight Dosing solifenacin, 10 mg = 1 tab(s), Oral, Daily, to start after completion of 1 month 5 mg dose, # 30 tab(s), Refills(s) 1, Pharmacy: [facility]/pharmacy #[id number], 179, cm, 08/13/23 9:15:00 EDT, Height/Length [...] well. Continue timed voids, voiding maneuvers. Ordered: [id number] Measure Post Void residual urine and/or bladder capacity by US- non-imaging 5. Gross hematuria (R31.0: Gross hematuria) At prior OV was still experiencing hematuria af (more content not included)... Normal [facility] Comment on above: Result Comment: Elec tronically Signed By: MASOOD Camilo APRN, Haydee Campos\.br\Date and Time Signed: 08/13/23 09:53 EDT Ambulatory Visit Summaryon 0 05-06-2023 Ambulatory Visit Summary RACHEL ACKERMAN Brendan :1950 Visit Date:05/06/2023 Ambulatory Visit Instructions Your [...] 3 months Where: [facility] [address] [place] [address]- Medications What How Much When Instructions Unchanged [...] night to (more content not included)... Normal [facility] Patient Educationon 05-06-19 24 Patient Education Urology Benign Prostatic Hyperplasia Benign [...] Follow these instructions at home: ? Take ptuv-bvf-pxklbjl and prescription medicines only as told by [...] the medicine (more content not included)... Normal [facility] Urology Office/Clinic Noteon 05-06-2023 Urology Office/Clinic [...] Follow-up With When Contact Information DEANNA WADDELL, RAMON Berumen In 3 months [facility] [address], [place] [address]- Additional Instructions: Patient Education Benign Prostatic Hyperplasia [...] cell carcinoma (more content not included)... Normal [facility] Comment on above: Result Comment: Elec tronically Signed By: Elia HUERTA MD\.br\Date and Time Signed: 05/06/23 11:55 EST\.br\Electronically Co-Signed By: Italia Redd\.br\Date and Time Co-Signed: 05/06/23 11:54 EST Pathology Noteon 04-23-2023 Pathology Note [id number]#1.00 TIFF [facility] Ambulatory Visit Summaryon 0 04-22-2023 Ambulatory Visit Summary RACHEL ACKERMAN Brendan :1950 Visit Date:04/22/2023 Ambulatory Visit Instructions Your Care Team Attending Physician - Elia [...] WADDELL, Elia Cardona Where: [facility] Normal [facility] Operative Reporton Operative Report [id number]#1.0 0TIFF [facility] Consultation Noteon 04-16-19 Consultation Note [id number]#1.0 0TIFF [facility] XR chest 2V*on 04-13-2023 XR chest 2V* [facility] [place] [address] XRay Report Signed Patient: Rachel Ackerman MR#: [id number] : 1950 Acct:[id number] Age/Sex: 72 / M ADM Date: 04/13/23 Loc: XD Room: Type: [facility] Attending Dr: Patrica Cruz DNP Copies to: [...] Douglas Wallace M.D.04/13/2023 2:02 PM Dictation Location: [place] [address] Transcribed By: ROYA 12/30/23 1402 Dictated By: Douglas Wallace DO 04/13/231400 Signed By: 04/13/23 140 [facility] HbA1c (Bld) [Mass fraction]o n 04-01-2023 A1C HEMOGLOBIN 6.7 [employer] Other A1C HEMOGLOBIN [employer] Other [facility] 03-15-2023 Lab Reports [id number]#1.0 0TIFF [facility] CNOVSPon 02-20-2023 CNOVSP Visit (SP) Office (HEMASA) MARY ANNRACHEL BEY ([id number]) 1950 Date Time Provider Department 02/20/23 10:45 AM KESHA CLIFTON During your visit today, we recorded the following information about you: Temperature Pulse Respiration Blood pressure 97.7 degrees 65/minute 16/minute 130/74 Weight Height 114.9 kg 1.778 m Kesha Clifton MD 02/20/2023 10:57 AM Signed PATIENT NAME: Rachel Ackerman CLINIC NO.: [id number] ATTENDING PHYSICIAN: Kesha Clifton MD DATE OF [...] Neut Date (more content not included)... Normal [facility] [place] Consultation Noteon 02-08-20 Consultation Note [id number]#1.0 0TIFF Normal [facility] 02-07-2023 Lab Reports [id number]#1.0 0TIFF Normal [facility] CNPNon 01-30-2023 CNPN Telephone (HEMTSA) RACHEL ACKERMAN ([id number]) 1950 M Date Time Provider Department 01/30/23 [...] Fully Assessed Reason for Visit: Patient Question [7593] Prescriptions as of 01/30/2023 - acetaminophen (TYLENOL) [...] Encounter Status:Closed by CRYSTAL COOLEY on 01/30/23 [facility] ([id number]) 1950 M Date Time Provider Department 01/28/23 [...] Crystal Cooley RN Triage please fax to [phone] or call [phone] c/o Kesha Hackett MD 01/28/2023 2:23 PM [...] Status:Closed by CRYSTAL COOLEY on 01/28/23 Normal [facility] CBC W Auto Differential pane l (Bld)on 01-23-2023 Basophils (Bld) [#/Vol] 0.08 10*3/uL Normal <0.11 [facility] Comment on above: Order Comment: Speci men Type: BLOOD SPECIMENOrdering Facility: [facility] Address: [address] [place] [address] Performed By: #### 5 7021-8 ####[facility] LAB[facility] [id number] [place] [address] Basophils/100 WBC (Bld) 1.1 % Normal [facility] Comment on above: Order Comment: Speci men Type: BLOOD SPECIMENOrdering Facility: [facility] Address: [address] [place] [address] Performed By: #### 5 7021-8 ####[facility]CL[facility] [id number] [place] [address] Differential cell count method Nom (Bld) Auto Normal [facility] Comment on above: Order Comment: Speci men Type: BLOOD SPECIMENOrdering Facility: [facility] Address: [address] [place] [address] Performed By: #### 5 7021-8 ####[facility] LABCL[facility] [id number] [place] [address] Eosinophils (Bld) [#/Vol] 0.12 10*3/uL Normal <0.46 [facility] Comment on above: Order Comment: Speci men Type: BLOOD SPECIMENOrdering Facility: [facility] Address: [address] [place] [address] Performed By: #### 5 7021-8 ####[facility]CL[facility] [id number] [place] [address] Eosinophils/100 WBC (Bld) 1.6 % Normal [facility] Comment on above: Order Comment: Speci men Type: BLOOD SPECIMENOrdering Facility: [facility] Address: [address] [place] [address] Performed By: #### 5 7021-8 ####[facility] LABCLIA [id number] [place] [address] Erythrocyte distribution width (RBC) [Ratio] 13.5 % Normal 11.5-15.0 [facility] Comment on above: Order Comment: Speci men Type: BLOOD SPECIMENOrdering Facility: [facility] Address: [address] [place] [address] Performed By: #### 5 7021-8 ####[facility] LABCLIA [id number] [place] [address] Hematocrit (Bld) [Volume fraction] 44.7 % Normal 39.0-51.0 [facility] Comment on above: Order Comment: Speci men Type: BLOOD SPECIMENOrdering Facility: [facility] Address: [address] [place] [address] Performed By: #### 5 7021-8 ####[facility] LABCLIA [id number] [place] [address] Hemoglobin (Bld) [Mass/Vol] 15.4 g/dL Normal 13.0-17.0 [facility] Comment on above: Order Comment: Speci men Type: BLOOD SPECIMENOrdering Facility: [facility] Address: [address] [place] [address] Performed By: #### 5 7021-8 ####[facility] LABCLIA [id number] [place] [address] Immature granulocytes (Bld) [#/Vol] 0.04 10*3/uL Normal <0.10 [facility] Comment on above: Order Comment: Speci men Type: BLOOD SPECIMENOrdering Facility: [facility] Address: [address] [place] [address] Performed By: #### 5 7021-8 ####[facility] LABCLIA [id number] [place] [address] Immature granulocytes/100 WBC (Bld) 0.5 % Normal [facility] Comment on above: Order Comment: Speci men Type: BLOOD SPECIMENOrdering Facility: [facility] Address: [address] [place] [address] Performed By: #### 5 7021-8 ####[facility] LABCLIA [id number] [place] [address] Lymphocytes (Bld) [#/Vol] 2.40 10*3/uL Normal 1.00-4.00 [facility] Comment on above: Order Comment: Speci men Type: BLOOD SPECIMENOrdering Facility: [facility] Address: [address] [place] [address] Performed By: #### 5 7021-8 ####[facility] LABCLIA [id number] [place] [address] Lymphocytes/100 WBC (Bld) 31.6 % Normal [facility] Comment on above: Order Comment: Speci men Type: BLOOD SPECIMENOrdering Facility: [facility] Address: [address] [place] [address] Performed By: #### 5 7021-8 ####[facility] LABCLIA [id number] [place] [address] MCH (RBC) [Entitic mass] 28.7 pg Normal 26.0-34.0 [facility] Comment on above: Order Comment: Speci men Type: BLOOD SPECIMENOrdering Facility: [facility] Address: [address] [place] [address] Performed By: #### 5 7021-8 ####[facility] LABCLIA [id number] [place] [address] MCHC (RBC) [Mass/Vol] 34.5 g/dL Normal 30.5-36.0 [facility] Comment on above: Order Comment: Speci men Type: BLOOD SPECIMENOrdering Facility: [facility] Address: [address] [place] [address] Performed By: #### 5 7021-8 ####[facility] LABCLIA [id number] [place] [address] MCV (RBC) [Entitic vol] 83.2 fL Normal 80.0-100.0 [facility] Comment on above: Order Comment: Speci men Type: BLOOD SPECIMENOrdering Facility: [facility] Address: [address] [place] [address] Performed By: #### 5 7021-8 ####[facility] LABCLIA [id number] [place] [address] Monocytes (Bld) [#/Vol] 0.60 10*3/uL Normal <0.87 [facility] Comment on above: Order Comment: Speci men Type: BLOOD SPECIMENOrdering Facility: [facility] Address: [address] [place] [address] Performed By: #### 5 7021-8 ####[facility] LABCLIA [id number] [place] [address] Monocytes/100 WBC (Bld) 7.9 % Normal [facility] Comment on above: Order Comment: Speci men Type: BLOOD SPECIMENOrdering Facility: [facility] Address: [address] [place] [address] Performed By: #### 5 7021-8 ####[facility] LABCLIA [id number] [place] [address] Neutrophils (Bld) [#/Vol] 4.36 10*3/uL Normal 1.45-7.50 [facility] Comment on above: Order Comment: Speci men Type: BLOOD SPECIMENOrdering Facility: [facility] Address: [address] [place] [address] Performed By: #### 5 7021-8 ####[facility] LABCLIA [id number] [place] [address] Neutrophils/100 WBC (Bld) 57.3 % Normal [facility] Comment on above: Order Comment: Speci men Type: BLOOD SPECIMENOrdering Facility: [facility] Address: [address] [place] [address] Performed By: #### 5 7021-8 ####[facility] LABCLIA [id number] [place] [address] Nucleated RBC (Bld) [#/Vol] 10*3/uL Normal <0.01 [facility] Comment on above: Order Comment: Speci men Type: BLOOD SPECIMENOrdering Facility: [facility] Address: [address] [place] [address] Performed By: #### 5 7021-8 ####[facility] LABCLIA [id number] [place] [address] Nucleated RBC/100 WBC (Bld) [Ratio] 0.0 /100 WBC Normal [facility] Comment on above: Order Comment: Speci men Type: BLOOD SPECIMENOrdering Facility: [facility] Address: [address] [place] [address] Performed By: #### 5 7021-8 ####[facility] LABCLIA [id number] [place] [address] Platelet mean volume (Bld) [Entitic vol] 9.2 fL Normal 9.0-12.7 [facility] Comment on above: Order Comment: Speci men Type: BLOOD SPECIMENOrdering Facility: [facility] Address: [address] [place] [address] Performed By: #### 5 7021-8 ####[facility] LABCLIA [id number] [place] [address] Platelets (Bld) [#/Vol] 128 10*3/uL Low 150-400 [facility] Comment on above: Order Comment: Speci men Type: BLOOD SPECIMENOrdering Facility: [facility] Address: [address] [place] [address] Performed By: #### 5 7021-8 ####[facility] LABCLIA [id number] [place] [address] RBC (Bld) [#/Vol] 5.37 10*6/uL Normal 4.20-6.00 [facility] Comment on above: Order Comment: Speci men Type: BLOOD SPECIMENOrdering Facility: [facility] Address: [address] [place] [address] Performed By: #### 5 7021-8 ####[facility] LABCLIA [id number] [place] [address] WBC (Bld) [#/Vol] 7.60 10*3/uL Normal 3.70-11.00 [facility] Comment on above: Order Comment: Speci men Type: BLOOD SPECIMENOrdering Facility: [facility] Address: [place] [address] Performed By: #### 5 7021-8 ####[facility] LABCLIA [id number] [place] [address] CNOVSPon 01-23-2023 CNOVSP Visit (SP) Office ([place]) RACHEL ACKERMAN ([id number]) 1950 M Date Time Provider Department 01/23/23 12:00 PM KESHA CLIFTON During your visit today, we recorded the following information about you: Temperature Pulse Respiration Blood pressure 97.6 degrees 65/minute 18/minute 137/76 Weight Height 114.3 kg 1.778 m Kesha Clifton MD 01/23/2023 12:34 PM Signed PATIENT NAME: Rachel Ackerman CLINIC NO.: [id number] ATTENDING PHYSICIAN: Kesha Clifton MD DATE OF [...] are intact. (more content not included)... Normal [facility] Comprehensive metabolic 2000 panelon 01-23-2023 Albumin [Mass/Vol] 4.7 g/dL Normal 3.9-4.9 [facility] Comment on above: Order Comment: Speci men Type: BLOOD SPECIMENOrdering Facility: [facility] Address: [address] [place] [address] Performed By: #### 2 4323-8, ####[facility] LABCLIA [id number] [place] [address] [place] ALP [Catalytic activity/Vol] 97 U/L Normal 38-113 [facility] Comment on above: Order Comment: Speci men Type: BLOOD SPECIMENOrdering Facility: [facility] Address: [address] [place] [address] Performed By: #### 2 4323-8, 0 ####[facility] LABCLIA [id number] [place] [address] [place] ALT [Catalytic activity/Vol] 38 U/L Normal 10-54 [facility] Comment on above: Order Comment: Speci men Type: BLOOD SPECIMENOrdering Facility: [facility] Address: [address] [place] [address] Performed By: #### 2 4323-8, 2531-0 ####[facility] LABCLIA [id number] [address] [address] [place] Anion gap [Moles/Vol] 13 mmol/L Normal 9-18 [facility] Comment on above: Order Comment: Speci men Type: BLOOD SPECIMENOrdering Facility: [facility] Address: [address] [place] [address] Performed By: #### 2 432-8, 2531-0 ####[facility] LABCLIA [id number] [place] [address] [place] AST [Catalytic activity/Vol] 29 U/L Normal 14-40 [facility] Comment on above: Order Comment: Speci men Type: BLOOD SPECIMENOrdering Facility: [facility] Address: [address] [place] [id number] Performed By: #### 2 432-8, 2531-0 ####[facility] LABCLIA [id number] [place] [address] [place] Bilirubin [Mass/Vol] 1.3 mg/dL Normal 0.2-1.3 [facility] Comment on above: Order Comment: Speci men Type: BLOOD SPECIMENOrdering Facility: [facility] Address: [address] [place] [id number] Performed By: #### 2 4323-8, 2531-0 ####[facility] LABCLIA [id number] [place] [id number] [place] Calcium [Mass/Vol] 9.0 mg/dL Normal 8.5-10.2 [facility] Comment on above: Order Comment: Speci men Type: BLOOD SPECIMENOrdering Facility: [facility] Address: [address] [place] [address] Performed By: #### 2 4323-8, 2531-0 ####[facility] LABCLIA [id number] [address] [address] [place] Chloride [Moles/Vol] 103 mmol/L Normal 97-105 [facility] Comment on above: Order Comment: Speci men Type: BLOOD SPECIMENOrdering Facility: [facility] Address: [address] [place] [address] Performed By: #### 2 4323-8, 2531-0 ####[facility] LABCLIA [id number] [place] [address] [place] CO2 [Moles/Vol] 23 mmol/L Normal 22-30 [facility] Comment on above: Order Comment: Speci men Type: BLOOD SPECIMENOrdering Facility: [facility] Address: [address] [place] [address] Performed By: #### 2 4323-8, 2531-0 ####[facility] LABCLIA [id number] [place] [address] [place] Creatinine [Mass/Vol] 0.98 mg/dL Normal 0.73-1.22 [facility] Comment on above: Order Comment: Speci men Type: BLOOD SPECIMENOrdering Facility: [facility] Address: [address] [place] [address] Performed By: #### 2 4323-8, 2531-0 ####[facility] LABCLIA [id number] [place] [id number] [place] Creatinine and Glomerular filtration rate.predicted panel (S/P/Bld) 82 mL/min/1.73m??? Normal >=60 [facility] Comment on above: Order Comment: Speci men Type: BLOOD SPECIMENOrdering Facility: [facility] Address: [address] [place] [address] Result Comment: Maureen mated Glomerular Filtration Rate [...] reflect actual GFR. Performed By: #### 2 432-8, ####[facility] LABCLIA [id number] [place] [address] [place] Glucose [Mass/Vol] 89 mg/dL Normal 74-99 [facility] Comment on above: Order Comment: Speci men Type: BLOOD SPECIMENOrdering Facility: [facility] Address: [address] [place] [address] Result Comment: The [place] Diabetes Association (ADA) provides guidance for cutoff [...] Standards of Medical Care in Diabetes 2016, [place] [employer]. Diabetes Care. 2016.39(Suppl 1). Performed By: #### 2 4328, ####[facility] LABCLIA [id number] [place] [address] [place] Potassium [Moles/Vol] 4.2 mmol/L Normal 3.7-5.1 [facility] Comment on above: Order Comment: Speci men Type: BLOOD SPECIMENOrdering Facility: [facility] Address: [address] [place] [place] [id number] Performed By: #### 2 4328, 0 ####[facility] LABCLIA [id number] [address] [address] [place] Protein [Mass/Vol] 6.9 g/dL Normal 6.3-8.0 [facility] Comment on above: Order Comment: Speci men Type: BLOOD SPECIMENOrdering Facility: [facility] Address: [address] [place] [address] Performed By: #### 2 4323-8, 2531-0 ####[facility] LABCLIA [id number] [place] [address] [place] Sodium [Moles/Vol] 139 mmol/L Normal 136-144 [facility] Comment on above: Order Comment: Speci men Type: BLOOD SPECIMENOrdering Facility: [facility] Address: [address] [place] [address] Performed By: #### 2 4323-8, 2531-0 ####[facility] LABCLIA [id number] [place] [address] [place] Urea nitrogen [Mass/Vol] 15 mg/dL Normal 9-24 [facility] Comment on above: Order Comment: Speci men Type: BLOOD SPECIMENOrdering Facility: [facility] Address: [address] [place] [address] Performed By: #### 2 4323-8, 2531-0 ####[facility] LABCLIA [id number] [place] [address] [place] Ferritin SerPl-mCncon 2022 Ferritin [Mass/Vol] 306.0 ng/mL Normal 30.3-565.7 [facility] Comment on above: Order Comment: Speci men Type: BLOOD SPECIMEN [facility] Address: [address] [place] [address] Performed By: #### 2 276-4, 84781-1 #### [facility] LAB CLIA [id number] [address] [place] [address] [place] Folate SerPl-mCncon 01-24-20 Folate [Mass/Vol] 11.3 ng/mL Normal >4.7 [facility] Comment on above: Order Comment: Alana morris Type: BLOOD SPECIMENOrdering Facility: [facility] Address: [address] [place] [address] Performed By: #### 2 885-2, 2132-9, 2284-8 ####[facility] LABCLIA [id number] [place] [address] [place] HBV core Ab Ser Qlon 023 HBV core Ab Ql (S) Negative Normal Negative [facility] Comment on above: Order Comment: Alana morris Type: BLOOD SPECIMENOrdering Facility: [facility] Address: [address] [place] [address] Result Comment: No e vidence of current or past infection with Hepatitis B virus. Should recent infection be suspected, repeat testing may be considered 3-4 weeks after this draw. Performed By: #### 2 2322-2, 22856-7, 5195-3 ####[facility] LABCLIA [id number] [address] [place] HBV surface Ab Ql (S)on 01-13 HBV surface Ab Qn (S) <8.00 Normal [facility] Comment on above: Order Comment: Alana morris Type: BLOOD SPECIMENOrdering Facility: [facility] Address: [address] [place] [address] Result Comment: <8 m IU/mL: No serological evidence of immunity to Hepatitis B Virus. >/= 8 to <12 mIU/mL: No serological evidence of immunity to Hepatitis B Virus. >/= 12 mIU/mL: Consistent with serological evidence of immunity to Hepatitis B Virus. Performed By: #### 2 2322-2, 12151-4, 5195-3 ####[facility] LABCLIA [id number] [place] [address] [place] HBV surface Ab Ser Qlon 01-13 HBV surface Ab Ql (S) Negative Normal [facility] Comment on above: Order Comment: Alana morris Type: BLOOD SPECIMENOrdering Facility: [facility] Address: [address] [place] [address] Result Comment: No s erological evidence of immunity to Hepatitis B Virus. Performed By: #### 2 2322-2, 26659-2, 5195-3 ####[facility] LABCLIA [id number] [place] [address] [place] HBV surface Ag Ser Qlon 01-13 HBV surface Ag Ql (S) Negative Normal Negative [facility] Comment on above: Order Comment: Speci men Type: BLOOD SPECIMENOrdering Facility: [facility] Address: [address] [place] [address] Performed By: #### 2 2322-2, 73038-6, 5195-3 ####[facility] LABCLIA [id number] [address] [place] HCV Ab Ser Qlon 01-23-2023 HCV Ab Ql (S) Negative Normal Negative [facility] Comment on above: Order Comment: Speci men Type: BLOOD SPECIMENOrdering Facility: [facility] Address: [address] [place] [address] Result Comment: The result suggests no evidence of active infection with Hepatitis C virus. Should recent infection be suspected, repeat testing may be considered 4-6 weeks after this draw. Performed By: #### 1 6128-1 ####[facility] LABIA [id number] [address] [place] IMMUNOFIXATION SCREEN, SERUM on 01-23-2023 MPA RESULT No M protein is identified. Normal No M protein is identified. [facility] Comment on above: Order Comment: Speci men Type: BLOOD SPECIMENOrdering Facility: [facility] Address: [address] [place] [address] Performed By: #### I [facility] ####[facility] LABCLIA [id number] [address] [place] STAFF REVIEW (MPA) Reviewed by Guerline Swift MD [facility] Comment on above: Order Comment: Speci men Type: BLOOD SPECIMENOrdering Facility: [facility] Address: [address] [place] [address] Performed By: #### I FESC ####[facility] LABCLIA [id number] [place] [address] [place] IMMUNOGLOBULINS GAMon 2022 IgA [Mass/Vol] 217 mg/dL Normal 70-400 [facility] Comment on above: Order Comment: Speci men Type: BLOOD SPECIMENOrdering Facility: [facility] Address: [address] [place] [address] Performed By: #### S ERIMM ####[facility] LABCLIA [id number] [place] [address] [place] IgG [Mass/Vol] 816 mg/dL Normal 700-1600 [facility] Comment on above: Order Comment: Speci men Type: BLOOD SPECIMENOrdering Facility: [facility] Address: [address] [place] [address] Performed By: #### S ERIMM ####[facility] LABCLIA [id number] [place] [address] [place] IgM [Mass/Vol] 37 mg/dL Low 40-230 [facility] Comment on above: Order Comment: Speci men Type: BLOOD SPECIMENOrdering Facility: [facility] Address: [address] [place] [address] Performed By: #### S ERIMM ####[facility] LABCLIA [id number] [place] [address] [place] Iron and Iron binding capaci ty panelon 01-23-2023 Iron [Mass/Vol] 82 ug/dL Normal 41-186 [facility] Comment on above: Order Comment: Speci men Type: BLOOD SPECIMEN [facility] Address: [address] [place] [address] Performed By: #### 2 276-4, 04257-2 #### [facility] CLIA [id number] [address] [place] [address] [place] Iron binding capacity [Mass/Vol] 374 ug/dL Normal 232-386 [facility] Comment on above: Order Comment: Speci men Type: BLOOD SPECIMEN [facility] Address: [address] [place] [address] Performed By: #### 2 276-4, 76184-3 #### [facility] CLIA [id number] [address] [place] [address] [place] Iron/TIBC [Molar ratio] 21.9 % Normal 15.0-57.0 [facility] Comment on above: Order Comment: Speci men Type: BLOOD SPECIMEN [facility] Address: [address] [place] [address] Performed By: #### 2 276-4, 72094-0 #### [facility] CLIA [id number] [address] [place] [address] [place] KAPPA/DIAZ,FREE,SERon 2022 Immunoglobulin light chains.kappa.free (S) [Mass/Vol] 16.8 mg/L Normal 3.3-19.4 [facility] Comment on above: Order Comment: Speci men Type: BLOOD SPECIMEN [facility] Address: [address] [place] [address] Result Comment: Rare ly, increased serum free light chains levels may not be detected or accurately quantified due to prozone phenomenon or in high viscosity samples using this immunoturbidimetric assay. Correlation with other laboratory results and clinical findings is recommended. The [place] Free Light Chain was performed using the Binding Site Optilite immunoturbidimetric method. Result obtained with different assay methods or kits cannot be used interchangeably. Performed By: #### K LFRS #### [facility] CLIA [id number] [address] [place] [address] [place] Immunoglobulin light chains.kappa/Immuno globulin light chains.lambda (S) [Mass ratio] 1.62 Normal 0.26-1.65 [facility] Comment on above: Order Comment: Speci men Type: BLOOD SPECIMEN [facility] Address: [address] [place] [address] Performed By: #### K LFRS #### [facility] CLIA [id number] [address] [place] [address] [place] Immunoglobulin light chains.lambda.free [Mass/Vol] 10.4 mg/L Normal 5.7-26.3 [facility] Comment on above: Order Comment: Speci men Type: BLOOD SPECIMEN [facility] Address: [address] [place] [address] Result Comment: Rare ly, increased serum free [...] By: #### K LFRS #### [facility] CLIA [id number] [facility] [place] [address] [place] LDH SerPl-cCncon 01-23-2023 LDH [Catalytic activity/Vol] 255 U/L High 135-225 [facility] Comment on above: Order Comment: Speci men Type: BLOOD SPECIMENOrdering Facility: [facility] Address: [address] [place] [address] Performed By: #### 2 4323-8, 2532-0 ####[facility] LABCLIA [id number] [place] [address] [place] PROTEIN ELECTROPHORESIS SERU M (P)on 01-23-2023 Albumin [Mass/Vol] 4.57 g/dL Normal 3.43-5.41 [facility] Comment on above: Order Comment: Speci men Type: BLOOD SPECIMENOrdering Facility: [facility] Address: [address] [place] [address] Performed By: #### L [id number] ####[facility] LABCLIA [id number] [place] [address] [place] Alpha 1 globulin Elph [Mass/Vol] 0.27 g/dL Normal 0.18-0.43 [facility] Comment on above: Order Comment: Speci men Type: BLOOD SPECIMENOrdering Facility: [facility] Address: [address] [place] [address] Performed By: #### L [id number] ####[facility] LABCLIA [id number] [place] [address] [place] Alpha 2 globulin Elph [Mass/Vol] 0.66 g/dL Normal 0.42-0.98 [facility] Comment on above: Order Comment: Speci men Type: BLOOD SPECIMENOrdering Facility: [facility] Address: [address] [place] [address] Performed By: #### L [id number] ####[facility] LABIA [id number] [place] [address] [place] Beta globulin Elph [Mass/Vol] 0.79 g/dL Normal 0.61-1.17 [facility] Comment on above: Order Comment: Speci men Type: BLOOD SPECIMENOrdering Facility: [facility] Address: [address] [place] [address] Performed By: #### L [id number] ####[facility] LABIA [id number] [place] [address] [place] Gamma globulin Elph [Mass/Vol] 0.61 g/dL Normal 0.53-1.51 [facility] Comment on above: Order Comment: Speci men Type: BLOOD SPECIMENOrdering Facility: [facility] Address: [address] [place] [address] Performed By: #### L [id number] ####[facility] LABIA [id number] [place] [address] [place] M-PROTEIN LOCATION Normal [facility] Comment on above: Order Comment: Speci men Type: BLOOD SPECIMENOrdering Facility: [facility] Address: [address] [place] [address] Result Comment: Not Applicable. Performed By: #### L [id number] ####[facility] LABCLIA [id number] [place] [address] [place] Protein Fractions [Interp] No definitive M protein is identified on protein electrophoresis. Normal No definitive M protein is identified on protein electrophores is. [facility] Comment on above: Order Comment: Speci men Type: BLOOD SPECIMENOrdering Facility: [facility] Address: [address] [place] [address] Performed By: #### L [id number] ####[facility] LABCLIA [id number] [place] [address] [place] Protein.monoclonal Elph [Mass/Vol] 0.00 g/dL Normal <=0.00 [facility] Comment on above: Order Comment: Speci men Type: BLOOD SPECIMENOrdering Facility: [facility] Address: [address] [place] [address] Performed By: #### L [id number] ####[facility] LABCLIA [id number] [place] [address] [place] SPE STAFF REVIEW Reviewed by Guerline Swift MD Normal [facility] Comment on above: Order Comment: Speci men Type: BLOOD SPECIMENOrdering Facility: [facility] Address: [address] [place] [address] Performed By: #### L [id number] ####[facility] LABCLIA [id number] [place] [address] [place] Prot SerPl-mCncon 01-23-2023 Protein [Mass/Vol] 6.7 g/dL Normal 6.3-8.0 [facility] Comment on above: Order Comment: Speci men Type: BLOOD SPECIMEN [facility] Address: [address] [place] [address] Performed By: #### 2 885-2, 9, 2283-11 #### [facility] IA [id number] [address] [place] [id number] [place] Vit B12 SerPl-ncon 023 Cobalamin (Vitamin B12) [Mass/Vol] 516 pg/mL Normal 232-1245 [facility] Comment on above: Order Comment: Speci men Type: BLOOD SPECIMEN [facility] Address: [address] [place] [address] Performed By: #### 2 885-2, 2131-12, 2283-11 #### [facility] IA [id number] [address] [place] [address] [place] Lab Reportson 01-21-2023 Lab Reports [id number]#1.0 0TIFF Normal [facility] Form[facility] 01-18-2023 Forms [id number]#1. 00TIFF Normal [facility] ECG 12-Leadon 01-16-2023 ECG 12-Lead [id number] 00 [id number]#1.0 0CD:127 Normal [facility] Lab Reportson 01-16-2023 Lab Reports [id number]#1.0 0CD:127 Normal [facility] Lab Reports [id number]#1.0 0CD:127 Normal [facility] Consent for Procedure/Surger yon 12-28-2022 Consent for Procedure/Surgery [id number]#1. 00CD:127 Normal [facility] Consent for Procedure/Surger yon 12-26-2022 Consent for Procedure/Surgery [id number]#1. 00CD:127 Normal [facility] IntraOperative Documentson 0 12-26-2022 IntraOperative Documents [id number]#1. 00CD:127 [facility] IntraOperative Documents [id number]#1. 00CD:127 [facility] Outpatient Surgery Discharge Instructionon 12-26-2022 Outpatient Surgery Discharge Instruction [id number]#1. 00CD:127 [facility] Consent for Treatmenton 12-14 Consent for Treatment [id number]#1.0 0CD:127 [facility] Main OR Intraoperative Recor don 12-25-2022 Main OR Intraoperative Record IntraOp Document Type FTURO Summary Primary Physician: Elia HUERTA MD Finalized Date/Time: 12/25/22 16:59:16 Pt. Name: MARY ANNSOTERORACHEL/Sex: 1950 Male Med Rec #: [id number] Physician: Elia HUERTA MD Financial #: [id number] Pt. Type: O Room/Bed: / Admit/Disch: 12/25/22 14:41:50 - Institution: Case Times FTURO Entry 1 Patient Times In Room 12/25/22 16:50:00 Out Room 12/25/22 17:03:00 Procedure Times Start 12/25/22 16:55:00 Stop 12/25/22 16:58:00 Anesthesia Times Last Modified By: Jihan Rader RN 12/25/22 16:59:06 Case Attendance FTURO Entry 1 Entry 2 Entry 3 Case Attendee DEANNA WADDELL, Elia Rader RN, Jihan Velázquez [facility] Role Performed Surgeon - Primary Director Machine - Primary Scrub - Primary Time In 12/25/22 16:50:00 12/25/22 16:50:00 12/25/22 16:50:00 Time Out 12/25/22 17:03:00 12/25/22 17:03:00 12/25/22 17:03:00 Procedure CYSTOSCOPY LOCAL(.) CYSTOSCOPY LOCAL(.) CYSTOSCOPY LOCAL(.) Comments Last Modified By: Jihan Rader RN, RN, Jihan Gibson RN 12/25/22 16:59:07 12/25/22 [...] By: Jihan Rader RN 12/25/22 16:59 Normal [facility] Main OR Preoperative Recordo n 12-25-2022 Main OR Preoperative Record Holding Area Document Type FTURO Summary Primary Physician: Elia HUERTA MD Finalized Date/Time: 12/25/22 16:18:39 Pt. Name: RACHEL ACKERMAN/Sex: 1950 Male Med Rec #: [id number] Physician: Elia HUERTA MD Financial #: [id number] Pt. Type: O Room/Bed: / Admit/Disch: 12/25/22 [...] By: Kinza Pulliam RN 12/25/22 16:18 Normal [facility] Operative Reporton Operative Report Patient: RACHEL [...] up arranged. Plan for a TURP.. 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 / Confirmed Asthma / SNOMED CT 118274885 / Confirmed Moderate episode of recurrent major depressive disorder / SNOMED CT 411738638 / Confirmed Generalized anxiety disorder / SNOMED CT 57110922 / Confirmed Prediabetes / SNOMED CT 4540034139 / Confirmed Urinary retention / SNOMED CT 789182951 / Confirmed Nocturia / SNOMED CT 882372575 / Confirmed Urinary urgency / SNOMED CT 857253777 / Confirmed Post-void dribbling / SNOMED CT 378054191 / Confirmed Incontinence / SNOMED CT 66176855 / Confirmed Urinary frequency / SNOMED CT 097130751 / Confirmed Former smoker / SNOMED CT 68414552 / Confirmed Histories Past Medical History: Resolved Arthritis (7675530): Resolved. Asthma (447705463): Resolved. Family History: Hypertension Father () Alcoholism Father () Primary malignant neoplasm of bone Sister () Heart disease Father () Mother () Procedure history: Nasal sinus procedure (2716960539) in the month of 02/2017 at 66 Years. Excision of basal cell carcinoma- Left ear (364138784) in the month of 08/2016 at 65 Years. Cataract surgery (871322088) in the month of 02/2016 at 65 Years. Colonoscopy (773941049) in 2016 at 65 Years. Arthroscopy of knee- Right (346708583) in the month of 06/2014 at 63 Years. Pharyngeal operation for obstructive sleep apnea and snoring (101915163) in 1999 at 49 Years. Tonsillectomy (386805841). Social History Social & Psychosocial Habits Tobacco [...] him scheduled for TURP under anesthesia. Normal [facility] Comment on above: Result Comment: Elec tronically Signed By: DEANNA WADDELL, Elia Vega.delia\Date and Time Signed: 12/25/22 17:07 EDT Consent for Procedure/Surger yon 11-13-2022 Consent for Procedure/Surgery [id number]#1.0 0CD:127 Normal [facility] Ambulatory Visit Summaryon 0 11-12-2022 Ambulatory Visit Summary RACHEL ACKERMAN :1950 Visit Date:11/12/2022 Ambulatory Visit Instructions Your Diagnosis BPH with urinary obstruction Urinary urgency Tests Performed Urnls Dip Stick Auto w/o Microscopy POC 58255 Your Care Team Attending Physician - Elia [...] Following Appointments Follow Up with DEANNA WADDELL, Elia Cardona, RAMON When: Comments: sched urodynamics and cysto Where: [facility] [address] , [place] [address] [phone] Medications What How Much When Instructions Unchanged [...] Urnls Dip Stick Auto w/o Microscopy POC 31470 (11/12/2022) Bilirubin Urine Dipstick - Negative Blood Urine Dipstick - Negative Glucose Urine Dipstick - Negative Ketones Urine Dipstick - Negative Leukocytes Urine Dipstick - Negative Nitrite Urine Dipstick - Negative Protein Urine Dipstick - Negative Specific [place] Urine Dipstick - 1.010 Urine Appearance Urine [...] including vitamins, herbs, eye drops, creams, and hwsm-rvy-iegewhn medicines. ? Any problems you or family members have had with anesthetic medicines. ? Any bleeding problems you have. ? Any surgeries you have had. ? Any medical conditions you have. ? Any prostate infections you have had. What are the risks? Generally, this is a safe procedure. However, problems may occur, including: ? Infection. ? Bleeding. ? (more content not included)... Normal [facility] Patient Educationon 11-13-19 Patient Education Urology Transurethral [...] including vitamins, herbs, eye drops, creams, and pzsr-gma-tnmrmaw medicines. ? Any problems you or family [...] tells you to take them. ? Taking mgsy-uod-ugttcrc medicines, vitamins, herbs, and supplements. Surgery safety [...] health care (more content not included)... Normal [facility] Urology Office/Clinic Noteon 11-12-2022 Urology Office/Clinic [...] Follow-up With When Contact Information DEANNA WADDELL, Eila Cardona, URL [facility] [address] [place] [address] [phone] Additional Instructions: sched urodynamics and cysto Patient Education Transurethral Resection of the Prostate Urodynamic Testing Benign Prostatic Hyperplasia IKaren, personally scribed for Dr. Huerta on 11/12/2022 13:32:37. . Documentation recorded by the scribeKaren, accurately reflects the services(s) I performed and [...] Aerosol, Inhalat (more content not included)... Normal [facility] Comment on above: Result Comment: Elec tronically Signed By: Mary Gibson\.br\Date and Time Signed: 11/12/22 13:54 EDT A1C HEMOGLOBINon 09-27-2022 HbA1c (Bld) [Mass fraction] 6.0 % [employer] Other HbA1c (Bld) [Mass fraction]o n 09-27-2022 A1C HEMOGLOBIN [employer] Other A1C HEMOGLOBINon 02-26-2022 HbA1c (Bld) [Mass fraction] 5.6 % [employer] Other HbA1c (Bld) [Mass fraction]o n 02-26-2022 A1C HEMOGLOBIN [employer] Other HbA1c (Bld) [Mass fraction]o n 08-24-2021 A1C HEMOGLOBIN 6.1 [employer] Other A1C HEMOGLOBIN [employer] Other A1C HEMOGLOBINon 02-22-2021 HbA1c (Bld) [Mass fraction] 5.9 % [employer] Other HbA1c (Bld) [Mass fraction]o n 02-22-2021 A1C HEMOGLOBIN [email or web address] [facility] [employer] Other CBC AUTO DIFFon 09-02-2020 BASO # 0.1 103/ul Normal 0.0-0.1 [facility] Comment on above: Performed By: #### C BC #### [facility] [address] [place] [address] Martha Naye Basophils/100 WBC (Bld) 1.2 % Normal 0.2-2.0 [facility] Comment on above: Performed By: #### C BC #### [facility] [address] [place] [address] Martha Naye EO # 0.2 103/ul Normal 0.0-0.7 [facility] Comment on above: Performed By: #### C BC #### [facility] [address] [place] [address] Martha Naye Eosinophils/100 WBC (Bld) 2.4 % Normal 0.9-7.0 [facility] Comment on above: Performed By: #### C BC #### [facility] [address] [place] [address] Martha Naye Erythrocyte distribution width (RBC) [Ratio] 13.1 % Normal 11.0-15.0 [facility] Comment on above: Performed By: #### C BC #### [facility] [address] [place] [address] Martha Naye Hematocrit (Bld) [Volume fraction] 45.5 % Normal 42.0-54.0 [facility] Comment on above: Performed By: #### C BC #### [facility] [address] [place], [place] [address] Martha Naye Hemoglobin (Bld) [Mass/Vol] 15.6 g/dL Normal 14.0-18.0 [facility] Comment on above: Performed By: #### C BC #### [facility] [address] [place] [address] Martha Naye IG # 0.08 10e3/ul Critically high 0.00-0.03 [facility] Comment on above: Performed By: #### C BC #### [facility] [address] [address] Marthajosué Yancey IG % 1.1 % Critically high 0.0-0.5 [facility] Comment on above: Performed By: #### C BC #### [facility] [address] [address] Marthajosué Yancey LYMPH # 2.7 103/ul Normal 1.2-3.8 [facility] Comment on above: Performed By: #### C BC #### [facility] [address] [place] [address] Martha Yancey Lymphocytes/100 WBC (Bld) 35.8 % Normal 20.5-60.0 [facility] Comment on above: Performed By: #### C BC #### [facility] [address] [place] [address] Martha Yancey MANUAL DIFF REQ NO Normal [facility] Comment on above: Performed By: #### C BC #### [facility] [address] [place] [address] Martha Yancey MCH (RBC) [Entitic mass] 29.4 pg Normal 25.9-34.0 [facility] Comment on above: Performed By: #### C BC #### [facility] [address] [place] [address] Martha Yancey MCHC (RBC) [Mass/Vol] 34.3 g/dL Normal 29.9-35.2 [facility] Comment on above: Performed By: #### C BC #### [facility] [address] [place] [address] Marthajosué Yancey MCV (RBC) [Entitic vol] 85.7 fL Normal 80.0-94.0 [facility] Comment on above: Performed By: #### C BC #### [facility] [address] [place] [address] Martha Naye MONO # 0.6 103/ul Normal 0.3-0.8 [facility] Comment on above: Performed By: #### C BC #### [facility] [address] [place], [place] [address] Martha Majoren Monocytes/100 WBC (Bld) 7.4 % Normal 1.7-12.0 [facility] Comment on above: Performed By: #### C BC #### [facility] [address] [place], [place] [address] Martha Yancey NEUT # 3.9 103/ul Normal 1.4-6.5 [facility] Comment on above: Performed By: #### C BC #### [facility] [address], [place] [address] Martha Yancey Neutrophils/100 WBC (Bld) 52.1 % Normal 43.0-75.0 [facility] Comment on above: Performed By: #### C BC #### [facility] [address] [place], [place] [address] Martha Yancey Platelet mean volume (Bld) [Entitic vol] 9.1 fL Critically low 9.5-13.5 [facility] Comment on above: Performed By: #### C BC #### [facility] [address] [place], [place] [address] Martha Naye PLT 135 103/ul Critically low 150-450 [facility] Comment on above: Performed By: #### C BC #### [facility] [address] [place], [place] [address] Martha Naye RBC 5.31 106/ul Normal 4.70-6.10 [facility] Comment on above: Performed By: #### C BC #### [facility] [address] [place], [place] [address] Martha Anye WBC 7.5 103/ul Normal 4.0-11.0 [facility] Comment on above: Performed By: #### C BC #### [facility] [address] [place], [place] [address] Martha Yancey LIPID PROFILEon 09-02-2020 CHOL-HDL RATIO NORM SEE BELOW Normal [facility] Comment on above: Result Comment: 3.3 - 4.4 LOW RISK 4.4 - 7.1 AVERAGE RISK 7.1 - 11.0 MODERATE RISK >11.0 HIGH RISK Performed By: #### T SH, CMP, LIPID #### [facility] [address] [id number] Martha Naye Cholesterol [Mass/Vol] 171 mg/dL Normal <=200 [facility] Comment on above: Performed By: #### T SH, CMP, LIPID #### [facility] [address] [id number] Martha Naye Cholesterol in HDL [Mass/Vol] 35 mg/dL Normal [facility] Comment on above: Performed By: #### T SH, CMP, LIPID #### [facility] [address] [phone] Martha Naye Cholesterol in LDL [Mass/Vol] 81.8 mg/dL Normal [facility] Comment on above: Performed By: #### T SH, CMP, LIPID #### [facility] [address] [place], [place] [address] Martha Naye Cholesterol.total/C holesterol in HDL [Mass ratio] 4.9 {ratio} Normal [facility] Comment on above: Performed By: #### T SH, CMP, LIPID #### [facility] [address] [place], [place] [address] Martha Naye HDL NORMAL > or = 60 mg/dl - LO W CARDIOVASCULAR RISK <40 mg/dl - HIGH CARDIOVASCULAR RISK Normal [facility] Comment on above: Performed By: #### T SH, CMP, LIPID #### [facility] [address] [phone] Martha Naye LDL CALC NORMAL SEE BELOW Normal [facility] Comment on above: Result Comment: <100 mg/dl OPTIMAL 100 - 129 mg/dl NEAR OR ABOVE OPTIMAL 130 - 159 mg/dl BORDERLINE HIGH 160 - 189 mg/dl HIGH >190 mg/dl VERY HIGH Performed By: #### T SH, CMP, LIPID #### [facility] [address] [phone] Martha Naye Triglyceride [Mass/Vol] 271 mg/dL Critically high <=150 [facility] Comment on above: Performed By: #### T SH, CMP, LIPID #### [facility] [address] [place], [place] [address] Martha Naye VLDL CALC 54.2 mg/dL Normal [facility] Comment on above: Performed By: #### T SH, CMP, LIPID #### [facility] [address] [place], [place] [address] Martha Naye MICROALB CREAT RATIO RANDOMo n 09-02-2020 mALB <1.3 Normal <=30.0 [facility] Comment on above: Performed By: #### M CRR #### [facility] [address] [address] Martha Naye MALB CR RATIO 10.7 mg/g Normal 0.0-29.9 [facility] Comment on above: Performed By: #### M CRR #### [facility] [address] [place], [place] [address] Martha Naye MALB CR RATIO RANGE SEE BELOW Normal [facility] Comment on above: Result Comment: NO M ICROALBUMINURIA 0-29 MG/G CLINICAL MICROALBUMINURIA 30-300 MG/G MACROALBUMINURIA >300 MG/G Performed By: #### M CRR #### [facility] [address] [place], [place] [address] Martha Naye URINE CREAT 121.61 mg/dL Normal 20.00-300.00 [facility] Comment on above: Performed By: #### M CRR #### [facility] [address] [phone] Martha Naye PROF 14(COMP METB)on 021 Albumin [Mass/Vol] 4.2 g/dL Normal 3.5-5.0 [facility] Comment on above: Performed By: #### T SH, CMP, LIPID #### [facility] [address] [phone] Martha Naye Albumin/Globulin [Mass ratio] 1.2 {ratio} Normal [facility] Comment on above: Performed By: #### T SH, CMP, LIPID #### [facility] [address] [place], [place] [address] Martha Naye ALP [Catalytic activity/Vol] 87 U/L Normal 38-126 [facility] Comment on above: Performed By: #### T GEORGI, CMP, LIPID #### [facility] [address] [phone] Martha Naye ALT [Catalytic activity/Vol] 51 U/L Normal 21-72 [facility] Comment on above: Performed By: #### T GEORGI, CMP, LIPID #### [facility] [address] [phone] Martha Naye Anion gap [Moles/Vol] 15.9 mmol/L Normal [facility] Comment on above: Performed By: #### T GEORGI CMP, LIPID #### [facility] [address] [place] [address] Martha Naye AST [Catalytic activity/Vol] 31 U/L Normal 17-59 [facility] Comment on above: Performed By: #### T GEORGI CMP, LIPID #### [facility] [address] [place], [place] [address] Martha Naye Bilirubin [Mass/Vol] 1.3 mg/dL Normal 0.2-1.3 [facility] Comment on above: Performed By: #### T GEORGI CMP, LIPID #### [facility] [address] [place], [place] [address] Martha Naye Calcium [Mass/Vol] 8.5 mg/dL Normal 8.4-10.2 [facility] Comment on above: Performed By: #### T GEORGI CMP, LIPID #### [facility] [address] [place] [address] Martha Naye Chloride [Moles/Vol] 104 mmol/L Normal 98-107 [facility] Comment on above: Performed By: #### T GEORGI CMP, LIPID #### [facility] [address] [phone] Martha Naye CO2 [Moles/Vol] 25.2 mmol/L Normal 22.0-30.0 [facility] Comment on above: Performed By: #### T GEORGI, CMP, LIPID #### [facility] [address] [place], [place] [address] Martha Naye Creatinine [Mass/Vol] 1.02 mg/dL Normal 0.66-1.25 [facility] Comment on above: Performed By: #### T SH, CMP, LIPID #### [facility] [address] [address] Martha Naye EGFR-AF TUVALUAN >60 Normal >=60 [facility] Comment on above: Performed By: #### T SH, CMP, LIPID #### [facility] [address] [address] Martha Naye EGFR-NON AF TUVALUAN >60 Normal >=60 [facility] Comment on above: Performed By: #### T GEORGI, CMP, LIPID #### [facility] [address] [place] [address] Martha Naye Globulin (S) [Mass/Vol] 3.6 g/dL Normal [facility] Comment on above: Performed By: #### T GEORGI CMP, LIPID #### [facility] [address] [place] [address] Martha Naye Glucose [Mass/Vol] 107 mg/dL Critically high 74-106 [facility] Comment on above: Performed By: #### T GEORGI CMP, LIPID #### [facility] [address] [place] [address] Martha Naye Potassium [Moles/Vol] 4.1 mmol/L Normal 3.4-5.0 [facility] Comment on above: Performed By: #### T SH, CMP, LIPID #### [facility] [address] [place] [address] Martha Naye Protein [Mass/Vol] 7.8 g/dL Normal 6.1-8.2 [facility] Comment on above: Performed By: #### T SH, CMP, LIPID #### [facility] [address] [place] [address] Martha Naye Sodium [Moles/Vol] 141 mmol/L Normal 137-145 [facility] Comment on above: Performed By: #### T SH, CMP, LIPID #### [facility] [address] [place] [address] Martha Naye Urea nitrogen [Mass/Vol] 17.0 mg/dL Normal 9.0-20.0 [facility] Comment on above: Performed By: #### T SH, CMP, LIPID #### [facility] [address] [address] Martha Yancey Urea nitrogen/Creatinine [Mass ratio] 16.7 mg/mg Normal [facility] Comment on above: Performed By: #### T SH, CMP, LIPID #### [facility] [address] [address] Martha Yancey TSHon 09-02-2020 TSH 1.860 uIU/mL Normal 0.470-4.680 [facility] Comment on above: Performed By: #### T SH, CMP, LIPID #### [facility] [address] [address] Martha Yancey TSH RANGE SEE BELOW Normal [facility] Comment on above: Result Comment: <0.3 4 UIU/ml HYPERTHYROID 0.34-5.60 UIU/ml EUTHYROID >5.60 UIU/ml HYPOTHYROID Performed By: #### T SH, CMP, LIPID #### [facility] [address] [address] Martha Yancey MAGR Intraoperative Recordon 06-16-2019 [facility] Intraoperative Record [facility] Intra-Op Record Summary Primary Physician: Finalized Date/Time: 06/16/19 12:25:52 Pt. Name: RACHEL ACKERMAN/Sex: 1950 MALE Med Rec #: [id number] Physician: Jordana Escamilla DO Financial #: [id number] Pt. Type: I Room/Bed: [facility] Admit/Disch: 06/01/19 06:00:00 - 06/03/19 [...] Case Attendee Jonathon Ely MD, Laura RN Anila Victoria RN Role Performed Anesthesiologist of Director Machine Director Machine Record Time In 06/01/19 07:22:00 06/01/19 07:22:00 [...] 12:25 MHRSCOTT Correct Documentation change anesthesia role [facility] Coding Summaryon 06-04-2019 Coding Summary CODING DATE: 06/04/2019 FINAL [facility] STATUS: Home PAYOR: Medicare Grouper: 470 MS-DRG [employer] JOINT REPLACEMENT OR REATTACHMENT OF LOWER EXTREMITY W/O SENIOR CARE Low Trim 0 High Trim 999 ADMIT DX: M17.11 Unilateral primary osteoarthritis, right knee REASON FOR VISIT DX: FINAL DX: PRINCIPAL: M17.11 Y Unilateral primary osteoarthritis, right knee SECONDARY: G47.30 Y Sleep apnea, unspecified J44.9 Y Chronic obstructive pulmonary disease, unspecified PROCEDURES DOCTOR NAME DATE Replacement of Right Knee Joint FrancineJordana And 06/01/2019 with Synthetic Substitute, Cemented, Open Approach NOTE: The code number assigned matches the documented diagnosis and / or procedure in the patient's chart. However, the narrative phrase printed from the coding software may appear abbreviated, or result in slightly different terminology. Coded By: Daisy Esquivel Date Saved: 06/04/2019 10:36 am [facility] Consent Formson 06-04-2019 Consent Forms [id number]#1.[address] [place] [address] History and Physicalon 06-04 History and Physical [id number]#1.[address] [place] [address] Medicare Messageon 0 Medicare Message [id number]#1.[address] [place] [address] Medication Managementon 05-17 Medication Management [id number]#1.[address] [place] [address] Outside Recordson 06-04-2019 Outside Records [id number]#1.0 0OTGTIFF [facility] Provider Orderson 06-04-2019 Provider Orders [id number] 20 [id number]#1.0 0OTGTIFF [facility] Telemetry Stripson 0 Telemetry Strips [id number] 20 [id number]#1.0 [facility]on 06-03-2019 Auto [place] % 10 % Normal -12 [facility] Comment on above: Performed By: #### 7 [id number], [id number], [id number] ####[facility] (DEFAULT)[address] [place] [address] 50705 Baso Abs# 0.0 x10 Normal 0.0-0.2 [facility] Comment on above: Performed By: #### 7 440987, [id number], [id number] ####[facility] (DEFAULT)[address] [place] [address] 34630 Basophils/100 WBC (Bld) 0.3 % Normal 0.2-2.0 [facility] Comment on above: Performed By: #### 7 021888, [id number], [id number] ####[facility] (DEFAULT)[address] [place] [address] 06401 Eos Abs# 0.1 x10 Normal 0.0-0.4 [facility] Comment on above: Performed By: #### 7 340470, [id number], [id number] ####[facility] (DEFAULT)[address] [place] [address] 86704 Eosinophils/100 WBC (Bld) 0.5 % Low 0.9-4.0 [facility] Comment on above: Performed By: #### 7 929738, 51606993, [id number] ####[facility] (DEFAULT)[address] [place] [address] 11971 Lymphocytes (Bld) [#/Vol] 2.1 x10 Normal 1.3-2.9 [facility] Comment on above: Performed By: #### 7 622415, 79875856, [id number] ####[facility] (DEFAULT)[address] [place] [address] Lymphocytes/100 WBC (Bld) 19 % Normal 14-48 [facility] Comment on above: Performed By: #### 7 855933, 90231257, [id number] ####[facility] (DEFAULT)[address] [place] [address] [place] Abs# 1.1 x10 High 0.0-0.8 [facility] Comment on above: Performed By: #### 7 673087, [id number], [id number] ####[facility] (DEFAULT)[address] [place] [address] Neut Abs# 7.6 x10 Normal 1.5-9.2 [facility] Comment on above: Performed By: #### 7 571517, 90199695, [id number] ####[facility] (DEFAULT)[address] [place] [address] Neutrophils/100 WBC (Bld) 70 % Normal 44-88 [facility] Comment on above: Performed By: #### 7 202479, 59693862, [id number] ####[facility] (DEFAULT)[address] [place] [address] CBC w/ Auto Diffon 0 Erythrocyte distribution width (RBC) [Ratio] 14.4 % Normal 11.5-15.0 [facility] Comment on above: Performed By: #### 7 907951, 86493453, [id number] ####[facility] (DEFAULT)[address] [place] [address] Hematocrit (Bld) [Volume fraction] 36.6 % Normal 34.8-51.9 [facility] Comment on above: Performed By: #### 7 920559, 15575690, [id number] ####[facility] (DEFAULT)[address] [place] [address] Hemoglobin (Bld) [Mass/Vol] 12.2 g/dL Normal 11.8-17.7 [facility] Comment on above: Performed By: #### 7 108559, 58447324, [id number] ####[facility] (DEFAULT)[address] [place] [address] Man Diff? Auto Normal [facility] Comment on above: Performed By: #### 7 604834, 82928776, [id number] ####[facility] (DEFAULT)[address] [place] [address] MCH (RBC) [Entitic mass] 28 pg Normal 24-34 [facility] Comment on above: Performed By: #### 7 233042, 46523435, [id number] ####[facility] (DEFAULT)[address] [place] [address] MCHC (RBC) [Mass/Vol] 33 g/dL Normal 26-37 [facility] Comment on above: Performed By: #### 7 342820, 96447754, [id number] ####[facility] (DEFAULT)[address] [place] [address] MCV (RBC) [Entitic vol] 85 fL Normal 81-100 [facility] Comment on above: Performed By: #### 7 900578, 57139592, [id number] ####[facility] (DEFAULT)[address] [place] [address] Platelet mean volume (Bld) [Entitic vol] 8.9 fL Normal 6.3-10.2 [facility] Comment on above: Performed By: #### 7 112232, 03488853, [id number] ####[facility] (DEFAULT)[address] [place] [address] Platelets (Bld) [#/Vol] 144 x10 Normal 138-427 [facility] Comment on above: Performed By: #### 7 382848, 78418228, [id number] ####[facility] (DEFAULT)[address] [place] [address] RBC (Bld) [#/Vol] 4.32 x10 Normal 3.70-5.30 [facility] Comment on above: Performed By: #### 7 921847, 89694220, [id number] ####[facility] (DEFAULT)[address] [place] [address] WBC (Bld) [#/Vol] 10.9 x10 [facility] Comment on above: Performed By: #### 7 422720, 66158259, [id number] ####[facility] (DEFAULT)[address] [place] [address] Education Noteon 06-03-2019 Education Note Education Materials [...] with your health care provider about the mair-xug-shniaqg and prescription medicines that you are taking. [...] 04/01/2006 Document Revised: 02/24/2018 Document Reviewed: 02/24/2018 [employer] Interactive Patient Education ? 2019 [employer] Normal [facility] Electrolyte Panel Standardon 06-03-2019 Anion gap [Moles/Vol] 13.0 mmol/L Normal 5.0-19.0 [facility] Comment on above: Performed By: #### 7 992127, 96696257, [id number] ####[facility] (DEFAULT)[address] [place] [address] Chloride [Moles/Vol] 106 mmol/L Normal 101-111 [facility] Comment on above: Performed By: #### 7 146391, 53246482, [id number] ####[facility] (DEFAULT)[address] [place] [address] CO2 [Moles/Vol] 24 mmol/L Normal 21-32 [facility] Comment on above: Performed By: #### 7 090496, 36697337, [id number] ####[facility] (DEFAULT)[address] [place] [address] 64428 Potassium [Moles/Vol] 4.2 mmol/L Normal 3.6-5.1 [facility] Comment on above: Performed By: #### 7 644291, 33149244, [id number] ####[facility] (DEFAULT)[address] [place] [address] 05373 Sodium [Moles/Vol] 139.0 mmol/L Normal 136.0-144.0 [facility] Comment on above: Performed By: #### 7 967083, 83259714, [id number] ####[facility] (DEFAULT)[address] [place] [address] 34342 Inpatient Patient Summaryon 06-03-2019 Inpatient Patient Summary [address] [address] Patient Discharge Instructions Name: RACHEL ACKERMAN : 1950 Patient Address: [address] [place] [address] Primary Care Provider: Name: Patrica Cruz DNP After you are discharged if you find you have any questions, please, call [phone] ext [phone] to speak to a nurse. Discharge Diagnosis: Primary osteoarthritis of right knee Prescription Information: If you have been given a prescription for narcotics, seek immediate medical attention if you have any difficulty breathing or any sudden status changes such as confusion and sleepiness. If you or anyone you know is experiencing suicidal thoughts, mental health, alcohol and/or drug addiction problems; contact the [facility] 05/11 Crisis Hotline -Text 4HOPE to 657908. If you received any narcotics, sedation, or [...] business decisions or sign any legal documents [facility] would like to thank you for allowing us to assist you with your healthcare needs. The following includes patient education materials and information regarding your injury/illness. RACHEL ACKERMAN has been given the following list of follow-up instructions, prescriptions, and patient education materials: Follow-up Instructions With: Address: When: Jordana Escamilla [address], [address] [place] [address] Business (2) 06/11/2019 9:00 AM With: Address: When: Patrica Cruz [address] [place] [address] Business (1) Medications During the course [...] with your health care provider about the mawt-owo-aqwdmez and prescription medicines that you are taking. [...] 04/01/2006 Document Revised: 02/24/2018 Document Reviewed: 02/24/2018 [employer]is[employer]to Interactive Patient Education ? 2019 [employer]. Viruses or Bacteria What?s got you sick? [...] for Disease Control and Prevention December 2013 [facility] MAGR Postoperative Recordon 06-03-2019 MAGR Postoperative Record MAGR Phase II Record Summary Primary Physician: Jordana Escamilla DO Finalized Date/Time: 06/03/19 12:11:36 Pt. Name: RACHEL ACKERMAN./Sex: 1950 MALE Med Rec #: [id number] Physician: Jordana Escamilla DO Financial #: [id number] Pt. Type: I Room/Bed: [facility]/1 Admit/Disch: 06/01/19 06:00:00 - Institution: Phase II [...] Signed By: Claudine Beck RN 06/03/19 12:11 [facility] Nutrition Noteon 06-03-2019 Nutrition Note Pt eating well, avg 100% of meals and supplements. No N/V. Labs reviewed. BM noted 06/02. No new rec'd at this time. Will continue to monitor. [facility] Pharmacy Noteon 06-03-2019 Pharmacy Note Delivered and collected hard copy at 12:00 PM. One prescription was paid for in marr [Electronically Signed on: 06/03/2019 16:06 EST] Anusha Valderrama [Verified on: 06/03/2019 16:06 EST] Anusha Valderrama Delivered at 2:16 PM correction [Electronically Signed on: 06/03/2019 16:07 EST] Anusha Valderrama [facility] Pharmacy Note Teach back on new medication completed. [Electronically Signed on: 06/03/2019 15:24 EST] Flavia Small [Verified on: 06/03/2019 15:24 EST] Geovanny [facility] Note Patient is a 68 Year s yo MALE presenting with Diagnosis for this visit Unilateral primary osteoarthritis, right knee Counseled: Patient Family Member New Medications: Include the following:Percocet Counseling Points Discussed: Indications, side effects and compliance Handouts: Medication education materials, Personal Medication Record, and Meds to Beds information Assessment of patient/provider relations representative 's response to counseling: Patient/Manager Control was engaged in counseling session and verbalized understanding Patient/provider relations representative found counseling beneficial Meds to Beds: Accepted and will make the notation in the patients record [Electronically Signed on: 06/03/2019 13:33 EST] Flavia Small [Verified on: 06/03/2019 13:33 EST] [facility] I have reviewed this [...] Scheduled narcotic: none prn narcotic pain medication(s): Cuhtfdiew9hn - Moderate pain, 10mg - Severe pain prn non-narcotic pain medication(s): Acetaminophen- Mild pain, Vistaril and ketorolac Action: OARRS and risk factors reviewed [Electronically Signed on: 06/03/2019 08:37 EST] Tania Grimes PharmD [Verified on: 06/03/2019 08:37 EST] Tania Grimes PharmD [facility] Progress Note-Physicianon Progress Note-Physician DATE OF ORTHOPEDIC [...] DISCHARGE: Stable. Van Irby DO JOB #: [id number] [Electronically Signed on: 06/04/2019 08:18 EST] VAN IRBY DO [Verified on: 06/04/2019 08:18 EST] VAN IRBY DO [Transcribed on: 06/03/2019 12:39 EST] [facility] Progress Note-Physician DATE OF ORTHOPEDIC POSTOPERATIVE [...] PROGNOSIS: Good. Van Irby DO JOB #: [id number] [Electronically Signed on: 06/03/2019 11:46 EST] VAN IRBY DO [Verified on: 06/03/2019 11:46 EST] VAN IRBY DO [Transcribed on: 06/03/2019 06:10 EST] GDU Normal [facility] .Auto Diff 1on 06-02-2019 Auto [place] % 9 % Normal 1-12 [facility] Comment on above: Performed By: #### 7 030483, [id number], [id number] ####[facility] (DEFAULT)[address] [place] [address] Baso Abs# 0.0 x10 Normal 0.0-0.2 [facility] Comment on above: Performed By: #### 7 243894, 72447491, [id number] ####[facility] (DEFAULT)[address] [place] [address] Basophils/100 WBC (Bld) 0.1 % Low 0.2-2.0 [facility] Comment on above: Performed By: #### 7 017890, 19038362, [id number] ####[facility] (DEFAULT)[address] [place] [address] Eos Abs# 0.0 x10 Normal 0.0-0.4 [facility] Comment on above: Performed By: #### 7 386645, 27109308, [id number] ####[facility] (DEFAULT)[address] [place] [address] Eosinophils/100 WBC (Bld) 0.2 % Low 0.9-4.0 [facility] Comment on above: Performed By: #### 7 515613, 74244576, [id number] ####[facility] (DEFAULT)[address] [place] [address] Lymphocytes (Bld) [#/Vol] 2.0 x10 Normal 1.3-2.9 [facility] Comment on above: Performed By: #### 7 700162, 95831607, [id number] ####[facility] (DEFAULT)[address] [place] [address] Lymphocytes/100 WBC (Bld) 19 % Normal 14-48 [facility] Comment on above: Performed By: #### 7 673018, 96760634, [id number] ####[facility] (DEFAULT)[address] [place] [address] [place] Abs# 1.0 x10 High 0.0-0.8 [facility] Comment on above: Performed By: #### 7 097337, 14511574, [id number] ####[facility] (DEFAULT)[address] [place] [address] Neut Abs# 7.8 x10 Normal 1.5-9.2 [facility] Comment on above: Performed By: #### 7 872345, 43082154, [id number] ####[facility] (DEFAULT)[address] [place] [address] Neutrophils/100 WBC (Bld) 72 % Normal 44-88 [facility] Comment on above: Performed By: #### 7 244052, 57448440, [id number] ####[facility] (DEFAULT)[address] [place] [address] CBC w/ Auto Diffon 0 Erythrocyte distribution width (RBC) [Ratio] 14.1 % Normal 11.5-15.0 [facility] Comment on above: Performed By: #### 7 732330, 82948986, [id number] ####[facility] (DEFAULT)[address] [place] [address] Hematocrit (Bld) [Volume fraction] 33.5 % Low 34.8-51.9 [facility] Comment on above: Performed By: #### 7 862565, 33059277, [id number] ####[facility] (DEFAULT)[address] [place] [address] Hemoglobin (Bld) [Mass/Vol] 11.4 g/dL Low 11.8-17.7 [facility] Comment on above: Performed By: #### 7 016339, 21303164, [id number] ####[facility] (DEFAULT)[address] [place] [address] 90352 Man Diff? Auto Normal [facility] Comment on above: Performed By: #### 7 259193, 86489894, [id number] ####[facility] (DEFAULT)[address] [place] [address] 87164 MCH (RBC) [Entitic mass] 29 pg Normal 24-34 [facility] Comment on above: Performed By: #### 7 758580, 57812193, [id number] ####[facility] (DEFAULT)[address] [place] [address]336 MCHC (RBC) [Mass/Vol] 34 g/dL Normal 26-37 [facility] Comment on above: Performed By: #### 7 487718, 11349113, [id number] ####[facility] (DEFAULT)[address] [place] [address] MCV (RBC) [Entitic vol] 84 fL Normal 81-100 [facility] Comment on above: Performed By: #### 7 009232, 55237206, [id number] ####[facility] (DEFAULT)[address] [place] [address] Platelet mean volume (Bld) [Entitic vol] 8.9 fL Normal 6.3-10.2 [facility] Comment on above: Performed By: #### 7 422898, 01461267, [id number] ####[facility] (DEFAULT)[address] [place] [address] 36534 Platelets (Bld) [#/Vol] 133 x10 Low 138-427 [facility] Comment on above: Performed By: #### 7 880216, 47759508, [id number] ####[facility] (DEFAULT)[address] [place] [address] 33554 RBC (Bld) [#/Vol] 3.99 x10 Normal 3.70-5.30 [facility] Comment on above: Performed By: #### 7 983348, 35422137, [id number] ####[facility] (DEFAULT)[address] [place] [address] 18189 WBC (Bld) [#/Vol] 10.9 x10 [facility] Comment on above: Performed By: #### 7 163742, 89546311, [id number] ####[facility] (DEFAULT)[address] [place] [address] Electrolyte Panel Standardon 06-02-2019 Anion gap [Moles/Vol] 13.0 mmol/L Normal 5.0-19.0 [facility] Comment on above: Performed By: #### 7 267628, 19814854, [id number] ####[facility] (DEFAULT)[address] [place] [address] Chloride [Moles/Vol] 103 mmol/L Normal 101-111 [facility] Comment on above: Performed By: #### 7 189366, 69366022, [id number] ####[facility] (DEFAULT)[address] [place] [address] 12548 CO2 [Moles/Vol] 23 mmol/L Normal 21-32 [facility] Comment on above: Performed By: #### 7 176439, 28208182, [id number] ####[facility] (DEFAULT)[address] [place] [address] 18652 Potassium [Moles/Vol] 3.9 mmol/L Normal 3.6-5.1 [facility] Comment on above: Performed By: #### 7 297562, 94648803, [id number] ####[facility] (DEFAULT)[address] [place] [address] 59979 Sodium [Moles/Vol] 135.0 mmol/L Low 136.0-144.0 [facility] Comment on above: Performed By: #### 7 177779, 65173127, [id number] ####[facility] (DEFAULT)[address] [place] [address] 21870 Progress Note - Nurseon 05-16 Progress Note [...] on: 06/02/2019 16:39 EST] Kinza London RN [facility] Anesthesia Noteon 06-01-2019 Anesthesia Note Patient: RACHEL [...] history): All Problems Alcoholism / SNOMED CT 42033025 / Confirmed Anxiety / SNOMED CT 28391027 / Confirmed Asthma / SNOMED CT 090472876 / Confirmed Depression / SNOMED CT 41813451 / Confirmed Former smoker / SNOMED CT 67451736 / Confirmed Hyperlipidemia / SNOMED CT 35144265 / Confirmed Skin cancer / SNOMED CT 1338292335 / Confirmed Sleep apnea / SNOMED CT 13640106 / Confirmed Histories Family History: Heart attack Father Mother Hypertension Mother Procedure history: Tonsillectomy (468581842). Arthroscopy (63434309). Comments: 05/27/2019 14:07 Saskia Lim RN Right knee 05/27/2019 12:37 Claudine Esteban RN meniscectomy Colonoscopy (296522489). Palate operation (546734049). Comments: 05/27/2019 14:08 Saskia Lim RN Removal of for sleep apnea Maxillary sinus (30703221). Extraction of cataract by phacofragmentation with aspiration (3629382789). Comments: 05/27/2019 14:19 Saskia Lim RN bilateral [...] Charted Heart Rate Peripheral 67 bpm (JUN 01:33) Resp Rate 16 br/min (JUN 01:33) SBP 128 mmHg (JUN 01:) DBP 80 mmHg (JUN 01:) SpO2 95 % (JUN 01:) Weight 109.50 kg (JUN 01 06:25) Height 175.26 cm (JUN 01 06:25) Review / Management Laboratory Results Plan [place] [employer]esthesiologists#(ASA ) physical status classification: Class III. Anesthetic Preoperative Plan Anesthesia: General. , Regional adductor canal block. Anesthetic plan, risks, benefits, and alternatives discussed with the patient and/or family. Patient verbalized understanding. Anesthetic technique: discussed SAB vs GA. pt prefers GA. [Electronically Signed on: 06/01/2019 09:29 EST] Jonathon Ely MD [Verified on: 06/01/2019 09:29 EST] Jonathon Ely MD [facility] History and Physicalon 06-01 History and Physical [phone] [id number]. [id number] [facility] MAGR Intraoperative Recordon 06-01-2019 MAGR Intraoperative Record MAGR Intra-Op Record Summary Primary Physician: Jordana Escamilla DO Finalized Date/Time: 06/01/19 09:57:13 Pt. Name: RACHEL ACKERMAN D.O.B./Sex: 1950 MALE Med Rec #: [id number] Physician: Jordana Escamilla DO Financial #: [id number] Pt. Type: I Room/Bed: [facility] Admit/Disch: 06/01/19 06:00:00 - Institution: [...] Jordana Escamilla John M MD Jasenak RN, Sandee Khalil DO Role Performed Surgeon - Primary Anesthesiologist of Director Machine Record Time In 06/01/19 07:36:00 06/01/19 07:36:00 06/01/19 07:36:00 Time Out 06/01/19 09:46:00 06/01/19 09:46:00 06/01/19 09:46:00 Procedure Arthroplasty Knee Arthroplasty Knee Arthroplasty Knee Total(Right) Total(Right) Total(Right) Last Modified By: Sergio HALL, Sandee Hill RN, Sandee Sutherland RN 06/01/19 09:55:49 06/01/19 09:55:49 06/01/19 09:55:49 Entry 4 Entry 5 Entry 6 Case Attendee Patrica Raymond RN, Stephanie RN Wilkins CST, Rachel Role Performed Product Consultant Scrub Personnel Scrub Personnel Time In 06/01/19 [...] Primary Procedure Yes Primary Surgeon Jordana Escamilla Right Remi DO Surgeon Comment RIGHT TOTAL KNEE Start 06/01/19 08:06:00 Stop 06/01/19 09:38:00 Anesthesia Type General Surgical Service Orthopedics Wound Class Clean Technique Details Closure Technique Primary Entire procedure No was performed via laparoscope or robotic assistance Last Modified By: Sandee iHll RN 06/01/19 09:56:01 Post-Care Text: O.730 The [...] By Jordana Escamilla Removed By Rani Howard RN, DO Outcome Met (O.60) Yes Last Modified [...] DIAMETER; 35MM 27MM LENGTH 48MM LENGTH LENGTH Hadoop Engineer BRITTANY BRITTANY BRITTANY Catalog # Lot Number [id number] Expiration Date 02/12/29 11/12/28 Serial Number Device Identifier Human Readable RAJNI Machine Readable RAJNI MR Class Implant Usage Data Site Knee R Knee R Knee R Quantity 2 1 1 Reason for Explant Reason Not Retained Explant Disposition Mold Puller Sterility External Indicator Result Internal Indicator Results [...] 06/01/19 08:52:00 06/01/19 08:54:00 Date/Time Implanted/Explanted Jordana Escamilla James Huddleston Jordana By: Remi Mejias DO Remi DO Size RIGHT SIZE 9 RIGHT 10MM HEIGHT USE 35MM DIAMETER; 9.0MM WITH TIBIA SIZES E-F/CR THICKNESS FEMUR SIZES 8- Hadoop Engineer BRITTANY BRITTANY BRITTANY Catalog # Lot Number [id number] Expiration Date 05/15/27 12/14/23 02/12/27 Serial Number Device Identifier Human Readable RAJNI Machine Readable RAJNI MR Class Implant Usage Data Site Knee R Knee R Knee R Quantity 1 1 1 Reason for Explant Reason Not Retained Explant Disposition Mold Puller Sterility External Indicator Result Internal Indicator Results Outcome Met (O.30) Yes Yes Yes Last Modified By: Sergio RN, Sandee Hill RN, Sandee Hill RN, Sandee Vides 06/01/19 08:57:03 06/01/19 08:57:03 06/01/19 08:57:03 Entry 7 Entry 8 Entry 9 Procedure Arthroplasty Knee Arthroplasty Knee Arthroplasty Knee Total(Right) Total(Right) Total(Right) Implant Action Implant Implant Implant Description BRITTANY NATURAL TIBIA BIOMET BONE CEMENT NO BIOMENT BONE CEMENT NO CEMENTED ANTI ANTI Implant Information Implant/Explant 06/01/19 08:56:00 06/01/19 08:59:00 06/01/19 09:00:00 Date/Time Implanted/Explanted Jordana Escamilla, Jordana Stovall By: Remi Mejias DO Remi JAMES Size 5 DEGREE STEMMED RIGHT SIZE E Hadoop Engineer BRITTANY BIOMENT BIOMENT Catalog # Lot Number [id number] Expiration Date 02/12/29 06/13/23 03/14/23 Serial Number Device Identifier Human Readable RAJNI Machine Readable RAJNI MR Class Implant Usage Data Site Knee R Knee R Knee R Quantity 1 1 1 Reason for Explant Reason Not Retained Explant Disposition Mold Puller Sterility External Indicator Result Internal Indicator Results Outcome Met (O.30) Yes Yes Yes Last Modified By: Sergio RN, Sandee Hill RN, Sandee Hill RN, Sandee [...] Signed By: Sandee Hill RN 06/01/19 09:57 [facility] PACU Record [facility] PACU Record Summary Primary Physician: Jordana Escamilla DO Finalized Date/Time: 06/01/19 10:34:41 Pt. Name: RACHEL ACKERMAN/Sex: 1950 MALE Med Rec #: [id number] Physician: Jordana Escamilla DO Financial #: [id number] Pt. Type: I Room/Bed: [facility]/ Admit/Disch: 06/01/19 06:00:00 - Institution: PACU Case Times MAGR Entry 1 In PACU I 06/01/19 09:48:00 Discharge from PACU 06/01/19 10:40:00 I Last Modified By: Rani Howard RN 06/01/19 10:34:33 Finalized By: Rani Howard RN Document Signatures Signed By: Rani Howard RN 06/01/19 10:34 [facility] MAGR Preoperative Recordon 0 06-01-2019 MAGR Preoperative Record MAGR Pre-Op Record Summary Primary Physician: Jordana Escamilla DO Finalized Date/Time: 06/01/19 07:51:20 Pt. Name: RACHEL ACKERMAN /Sex: 1950 MALE Med Rec #: [id number] Physician: Jordana Escamilla DO Financial #: [id number] Pt. Type: I Room/Bed: / Admit/Disch: 06/01/19 [...] Signed By: Anila Victoria RN 06/01/19 07:51 [facility] Nutrition Noteon 06-01-2019 Nutrition Note Chart reviewed; [...] for any changes; follow, assist prn ts [facility] Operative Report - Surgeon/P aileen 06-01-2019 [...] on: 06/01/2019 14:01 EST] Jordana Escamilla DO [facility] Patient Handouton 06-01-2019 Patient Handout Orthopedics [...] with your health care provider about the [id number] and prescription medicines that you are taking. [...] 04/01/2006 Document Revised: 02/24/2018 Document Reviewed: 02/24/2018 [email or web address] Interactive Patient Education ? 2019 [employer]. [facility] XR Knee One or Two Views Rig on 06-01-2019 XR Knee One or Two Views [...] Chauncey Rosas MD 06/01/19 12:57 p Technologist: [facility] Progress Note - Nurseon 05-16 Progress Note - Nurse Spoke with pt and informed him to be here at 6am and NPO after MN. He verbalizes understanding. [Electronically Signed on: 05/29/2019 09:26 EST] Claudine Beck RN [Verified on: 05/29/2019 09:26 EST] Claudine Beck RN [facility] Vital Signs Date Time Vital Sign Value Performing Clinician Facility 10-14-2023 12:06-0400 Blood Pressure Location Elia HUERTA [facility] 10-14-2023 12:06-0400 Body temperature 98.6 [degF] Elia HUERTA [facility] 10-14-2023 12:06-0400 Diastolic blood pressure 78 mm[Hg] Elia HUERTA [facility] 10-14-2023 12:06-0400 Heart rate 68 /min Elia HUERTA [facility] 10-14-2023 12:06-0400 Respiratory rate 16 /min Elia HUERTA [facility] 10-14-2023 12:06-0400 Systolic blood pressure 129 mm[Hg] Elia HUERTA [facility] 08-13-2023 09:01-0400 Blood Pressure Location Haydee Camilo [facility] 08-13-2023 09:01-0400 Body temperature 97.88 [degF] Haydee Camilo [facility] 08-13-2023 09:01-0400 Diastolic blood pressure 80 mm[Hg] Haydee Orzech [facility] 08-13-2023 09:01-0400 Heart rate 73 /min Haydee Orzech [facility] 08-13-2023 09:01-0400 Respiratory rate 20 /min Haydee Orzech [facility] 08-13-2023 09:01-0400 Systolic blood pressure 150 mm[Hg] Haydee Orzech [facility] 07-08-2023 10:03-0400 Body height 177.8 cm DNP Patrica Luquele Work Phone: [facility] 07-08-2023 10:03-0400 Body mass index (BMI) [Ratio] 35.3 kg/m2 DNP Patrica Rebelle Work Phone: [facility] 07-08-2023 10:03-0400 Body weight 111.78 kg DNP Patrica Luquele Work Phone: [facility] 07-08-2023 10:03-0400 Diastolic blood pressure 78 mm[Hg] DNP Patrica Kaple Work Phone: [facility] 07-08-2023 10:03-0400 Heart rate 65 /min DNP Patrica Kaple Work Phone: [facility] 07-08-2023 10:03-0400 SaO2% (BldA) [Mass fraction] 97 % DNP Patrica Kaple Work Phone: [facility] 07-08-2023 10:03-0400 Systolic blood pressure 126 mm[Hg] DNP Patrica Kaple Work Phone: [facility] 05-06-2023 10:25-0500 Blood Pressure Location Elia HUERTA [facility] 05-06-2023 10:25-0500 Diastolic blood pressure 86 mm[Hg] Elia HUERTA [facility] 05-06-2023 10:25-0500 Heart rate 75 /min Elia HUERTA [facility] 05-06-2023 10:25-0500 Respiratory rate 16 /min Elia HUERTA [facility] 05-06-2023 10:25-0500 Systolic blood pressure 135 mm[Hg] Elia HUERTA [facility] 04-16-2023 07:15-0500 Body height 177.8 cm Patrica Cruz Other [facility] 04-16-2023 07:15-0500 Body mass index (BMI) [Ratio] 35.28 kg/m2 Patrica Cruz Other [facility] [employer] Other 04-16-2023 07:15-0500 Body weight 111.54 kg Patrica Cruz Other [facility] [employer] Other 04-16-2023 07:15-0500 Body weight 111.53 kg DNP Patrica Cruz Work Phone: [facility] 04-16-2023 07:15-0500 Diastolic blood pressure 70 mm[Hg] Patrica Cruz Other [facility] 04-16-2023 07:15-0500 Respiratory rate 18 /min Patrica Cruz Other [facility] Other 04-16-2023 07:15-0500 SaO2% (BldA) [Mass fraction] 97 % Patrica Cruz Other [facility] Other 04-16-2023 07:15-0500 Systolic blood pressure 138 mm[Hg] Patrica Cruz Other [facility] 04-01-2023 10:00-0500 Body height 177.8 cm Patrica Cruz Other [facility] Other 04-01-2023 10:00-0500 Body mass index (BMI) [Ratio] 35.15 kg/m2 Patrica Cruz Other [facility] Other 04-01-2023 10:00-0500 Body weight 111.13 kg Patrica Cruz Other [facility] Other 04-01-2023 10:00-0500 Diastolic blood pressure 78 mm[Hg] Patrica Cruz Other [facility] Other 04-01-2023 10:00-0500 Respiratory rate 18 /min Patrica Cruz Other [facility] Other 04-01-2023 10:00-0500 SaO2% (BldA) [Mass fraction] 94 % Patrica Cruz Other [facility] Other 04-01-2023 10:00-0500 Systolic blood pressure 140 mm[Hg] Patrica Cruz Other [facility] Other 03-19-2023 09:15-0500 Body height 177.8 cm Patrica Cruz Other [facility] Other 03-19-2023 09:15-0500 Body mass index (BMI) [Ratio] 34.43 kg/m2 Patricatarsha Cruz Other [facility] Other 03-19-2023 09:15-0500 Body temperature 97.5 [degF] Patrica Cruz Other [facility] Other 03-19-2023 09:15-0500 Body weight 108.86 kg Patrica Anthony Other [facility] Other 03-19-2023 09:15-0500 Diastolic blood pressure 78 mm[Hg] Patrica Cruz Other [facility] Other 03-19-2023 09:15-0500 Respiratory rate 18 /min Patrica Anthony Other [facility] Other 03-19-2023 09:15-0500 SaO2% (BldA) [Mass fraction] 97 % Patricatarsha Cruz Other [facility] Other 03-19-2023 09:15-0500 Systolic blood pressure 120 mm[Hg] Patrica Cruz Other [facility] Other 02-20-2023 10:35-0500 Body height 177.8 cm Kesha Clifton MD Work Phone: [facility] 02-20-2023 10:35-0500 Body temperature 97.7 [degF] Kesha Clifton MD Work Phone: [facility] 02-20-2023 10:35-0500 Body weight 114.85 kg Kesha Clifton MD Work Phone: [facility] 02-20-2023 10:35-0500 Diastolic blood pressure 74 mm[Hg] Kesha Clifton MD Work Phone: [facility] 02-20-2023 10:35-0500 Heart rate 65 /min Kesha Clifton MD Work Phone: [facility] 02-20-2023 10:35-0500 Respiratory rate 16 /min Kesha Clifton MD Work Phone: [facility] 02-20-2023 10:35-0500 SaO2% (BldA) [Mass fraction] 96 % Kesha Clifton MD Work Phone: [facility] 02-20-2023 10:35-0500 Systolic blood pressure 130 mm[Hg] Kesha Clifton MD Work Phone: [facility] 11-12-2022 12:16-0400 Blood Pressure Location Elia HUERTA [facility] 11-12-2022 12:16-0400 Diastolic blood pressure 86 mm[Hg] Elia HUERTA [facility] 11-12-2022 12:16-0400 Heart rate 79 /min Elia HUERTA [facility] 11-12-2022 12:16-0400 Respiratory rate 16 /min Elia HUERTA [facility] 11-12-2022 12:16-0400 Systolic blood pressure 142 mm[Hg] Elia HUERTA [facility] 09-27-2022 09:00-0400 Body height 177.8 cm Patrica Cruz Other [facility] Other 09-27-2022 09:00-0400 Body mass index (BMI) [Ratio] 36.15 kg/m2 Patrica Anthony Other [facility] Other 09-27-2022 09:00-0400 Body temperature 98.1 [degF] Patrica Anthony Other [facility] Other 09-27-2022 09:00-0400 Body weight 114.31 kg Patrica Anthony Other [facility] Other 09-27-2022 09:00-0400 Diastolic blood pressure 76 mm[Hg] Patrica Anthony Other [facility] Other 09-27-2022 09:00-0400 SaO2% (BldA) [Mass fraction] 97 % Patrica Anthony Other [facility] Other 09-27-2022 09:00-0400 Systolic blood pressure 128 mm[Hg] Patrica Anthony Other [facility] Other 02-26-2022 11:00-0500 Body height 177.8 cm Patrica Anthony Other [facility] Other 02-26-2022 11:00-0500 Body mass index (BMI) [Ratio] 35.88 kg/m2 Patrica Luqueforrest Other [facility] Other 02-26-2022 11:00-0500 Body temperature 96.7 [degF] Patrica Anthony Other [facility] Other 02-26-2022 11:00-0500 Body weight 113.45 kg Patrica Anthony Other [facility] [employer] Other 02-26-2022 11:00-0500 Diastolic blood pressure 70 mm[Hg] Patrica Cruz Other [facility] Other 02-26-2022 11:00-0500 Respiratory rate 18 /min Patrica Cruz Other [facility] Other 02-26-2022 11:00-0500 SaO2% (BldA) [Mass fraction] 98 % Patrica Anthony Other [facility] Other 02-26-2022 11:00-0500 Systolic blood pressure 128 mm[Hg] Patrica Cruz Other [facility] Other 09-05-2021 10:54-0400 Blood Pressure Location Will Rivera Jr. [facility] 09-05-2021 10:54-0400 Diastolic blood pressure 82 mm[Hg] Will Rivera Jr. [facility] 09-05-2021 10:54-0400 Heart rate 71 /min Will Rivera Jr. [facility] 09-05-2021 10:54-0400 Respiratory rate 16 /min Will Rivera Jr. [facility] 09-05-2021 10:54-0400 Systolic blood pressure 137 mm[Hg] Will Rivera Jr. [facility] 08-24-2021 11:00-0400 Body height 177.8 cm Patrica Cruz Other [facility] Other 08-24-2021 11:00-0400 Body mass index (BMI) [Ratio] 36.21 kg/m2 Patrica Cruz Other [facility] Other 08-24-2021 11:00-0400 Body weight 114.49 kg Patrica Cruz Other [facility] Other 08-24-2021 11:00-0400 Diastolic blood pressure 82 mm[Hg] Patrica Cruz Other [facility] Other 08-24-2021 11:00-0400 Respiratory rate 18 /min Patrica Cruz Other [facility] Other 08-24-2021 11:00-0400 SaO2% (BldA) [Mass fraction] 96 % Patrica Cruz Other [facility] Other 08-24-2021 11:00-0400 Systolic blood pressure 122 mm[Hg] Patrica Cruz Other [facility] Other 02-22-2021 11:00-0500 Body height 177.8 cm Patrica Cruz Other [facility] Other 02-22-2021 11:00-0500 Body mass index (BMI) [Ratio] 36.07 kg/m2 Patrica Cruz Other [facility] Other 02-22-2021 11:00-0500 Body temperature 97.4 [degF] Patrica Anthony Other [facility] Other 02-22-2021 11:00-0500 Body weight 114.04 kg Patrica Anthony Other [facility] Other 02-22-2021 11:00-0500 Diastolic blood pressure 80 mm[Hg] Patrica Cruz Other [facility] Other 02-22-2021 11:00-0500 Respiratory rate 18 /min Patrica Anthony Other [facility] Other 02-22-2021 11:00-0500 SaO2% (BldA) [Mass fraction] 97 % Patrica Cruz Other [facility] Other 02-22-2021 11:00-0500 Systolic blood pressure 130 mm[Hg] Patrica Anthony Other [facility] Other Encounters Encounter Date Encounter Type Care Provider Facility Start: 04-20-2024 ambulatory Elia Raineyi ty:ZORAIDA Palomo Start: 10-14-2023 End: 10-14-2023 ambulatory Elia HUERTA [facility] Start: 10-14-2023 End: 10-14-2023 Lab Drop off Elia HUERTA [facility] Start: 10-14-2023 End: 10-14-2023 ambulatory Elia HUERTA Facility:[facility] Palomo Start: 10-14-2023 End: 10-14-2023 Patient encounter procedure Elia HUERTA [facility] Start: 08-16-2023 End: 08-16-2023 ambulatory MARIA FERNANDA ECHOLS Not Available Start: 08-13-2023 End: 08-13-2023 ambulatory Haydee X Orzech Facility:[facility] Start: 08-13-2023 End: 08-13-2023 Patient encounter procedure Haydee X Orzech [facility] Start: 07-08-2023 End: 07-08-2023 ambulatory DNP Patrica Cruz Work Phone: [facility] Work Phone: Start: 07-08-2023 End: 07-08-2023 Patient encounter procedure DNP Patrica Cruz Work Phone: [facility] [place] Work Phone: Start: 06-04-2023 End: 06-05-2023 ambulatory JORDANA ESCAMILLA Not Available Start: 05-06-2023 End: 05-06-2023 ambulatory Elia HUERTA Facility:[facility] Start: 05-06-2023 End: 05-06-2023 Patient encounter procedure Elia HUERTA [facility] Start: 04-22-2023 End: 04-22-2023 ambulatory Elia HUERTA Facility:[facility] Start: 04-22-2023 End: 04-22-2023 Patient encounter procedure [facility] Start: 04-18-2023 End: 04-18-2023 ambulatory Elia HUERTA Facility:CD:[id number] Start: 04-16-2023 End: 04-16-2023 ambulatory Patrica Curz Other [facility] Other Start: 04-16-2023 Encounter for other preprocedural examination Patrica Cruz [facility] [place] Start: 04-16-2023 Office outpatient vi sit 25 minutes Patrica Anthony [facility] [place] Start: 04-16-2023 End: 04-16-2023 Patient encounter procedure DNP Patrica Cruz Work Phone: [facility] [place] Work Phone: Start: 04-13-2023 End: 04-13-2023 ambulatory Patrica Cruz Facility:[facility] Start: 04-13-2023 End: 04-13-2023 ambulatory DNP Patrica Cruz Work Phone: [facility] Work Phone: Start: 04-13-2023 End: 04-13-2023 Patient encounter procedure DNP Patrica Cruz Work Phone: [facility] Work Phone: Start: 04-09-2023 End: 04-09-2023 ambulatory Patrica Kapforrest Other [facility] Other Start: 04-09-2023 Encounter for other preprocedural examination Patrica Cruz [facility] [place] Start: 04-09-2023 Telephone encounter Patrica Cruz [facility] [place] Start: 04-02-2023 End: 04-02-2023 ambulatory Patrica Cruz Other [facility] Other Start: 04-02-2023 Telephone encounter Patrica Cruz [facility] Start: 04-01-2023 End: 04-01-2023 ambulatory Patrica Cruz Other [facility] Other Start: 04-01-2023 Office outpatient vi sit 25 minutes Patrica Cruz [facility] [place] Start: 03-19-2023 End: 03-19-2023 ambulatory Patrica Cruz Other [facility] Other Start: 03-19-2023 Office outpatient vi sit 25 minutes Patrica Cruz [facility] [place] Start: 03-18-2023 End: 03-18-2023 ambulatory Patrica Cruz Other [facility] Other Start: 03-18-2023 Telephone encounter Patricatarsha Luqueforrest Guz[facility] Start: 03-05-2023 End: 03-05-2023 ambulatory Patrica Luqueforrest Other [facility] Other Start: 03-05-2023 Telephone encounter Patrica Luqueforrest [facility] [place] Start: 03-01-2023 ambulatory Elia Oh ty:ZORAIDA Dumont Start: 02-20-2023 End: 02-20-2023 ambulatory [facility] Facility:[facility] Start: 02-20-2023 End: 02-20-2023 ambulatory Kesha Clifton MD Work Phone: Hematology/Oncology Comment on above: Thrombocytopenia (HC C) (Primary Dx); Platelets decreased (HCC) Start: 02-20-2023 End: 02-20-2023 Patient encounter procedure Kesha Clifton MD Work Phone: [place] Start: 02-11-2023 ambulatory Elia Oh ty:ZORAIDA Palomo Start: 01-28-2023 Telephone encounter Crystal Cooley RN Hematology/Oncology Comment on above: Patient Update Start: 01-23-2023 End: 01-23-2023 [facility] Start: 01-22-2023 Chart abstracting Kesha sierra MD Work Phone: Hematology/Oncology Start: 12-25-2022 End: 12-25-2022 ambulatory Elia HUERTA [facility] Start: 12-25-2022 End: 12-25-2022 Patient encounter procedure Elia HUERTA [facility] Start: 11-12-2022 End: 11-12-2022 ambulatory Elia Brendan DEANNA Facility: [facility] Start: 11-12-2022 End: 11-12-2022 Patient encounter procedure Elia HUERTA [facility] Start: 11-07-2022 End: 11-07-2022 ambulatory Genaro Sheldon Facility:[facility] Start: 11-07-2022 End: 11-07-2022 ambulatory DNP Patrica Cruz Work Phone: [facility] Work Phone: Start: 11-07-2022 End: 11-07-2022 Patient encounter procedure DNP Patrica Cruz Work Phone: [facility] Work Phone: Start: 10-08-2022 End: 10-08-2022 ambulatory Patrica Cruz Other [facility] Other Start: 10-08-2022 Telephone encounter Patrica Cruz [facility] [place] Start: 09-27-2022 End: 09-27-2022 ambulatory Patrica Cruz Other [facility] Other Start: 09-27-2022 Patient encounter procedure Patrica Cruz [facility] [place] Start: 02-26-2022 End: 02-26-2022 ambulatory Patrica Cruz Other [facility] Other Start: 02-26-2022 Office outpatient vi sit 25 minutes Patrica Cruz [facility] [place] Start: 12-26-2021 End: 12-26-2021 ambulatory Patrica Cruz Other [facility] Other Start: 12-26-2021 Telephone encounter Patrica Guzman [facility] [place] Start: 09-05-2021 End: 09-05-2021 Patient encounter procedure Will Rivera Jr. [facility] Start: 08-24-2021 End: 08-24-2021 ambulatory Patrica Cruz Other [facility] Other Start: 08-24-2021 Patient encounter procedure Patrica Cruz [facility] Start: 02-22-2021 End: 02-22-2021 ambulatory Patrica Cruz Other [facility] Other Start: 02-22-2021 Office outpatient vi sit 25 minutes Patrica Cruz [facility] Start: 09-22-2020 ambulatory PATRICA CRUZ Facility :[facility] Start: 09-02-2020 End: 09-03-2020 ambulatory PATRICA CRUZ Facility:[facility] Start: 08-31-2020 End: 09-01-[address] WILL RIVERA JR Facility:[facility] Start: 06-01-2020 End: 06-02-2020 ambulatory NONE LISTED REQUEST Facility:[facility] Start: 05-09-2020 End: 05-10-2020 ambulatory NONE LISTED REQUEST Facility: Procedures Date Procedure Procedure Detail Performing Clinician Start: 04-18-2023 Transurethral prostatectomy Elia HUERTA Start: 04-13-2023 Plain chest X-ray DNP Trevor Cruz Work Phone: Start: 12-25-2022 Transurethral cystoscopy Elia HUERTA Start: 12-25-2022 Urodynamic studies Diane HUERTA Start: 08-31-[address] JUAN R CAMPBELLTED REQUEST Comment on above: Performed By: #### P SAD #### [facility] [address] [address] Martha Yancey Start: 02-13-2017 Nasal sinus procedure [...] Author Start: 01-23-2026 Diabetes Screening Diabetes Screening [facility] Start: 07-08-2023 Patient referral [facility] Work Phone: Start: 12-14-2022 Covid-19 Vaccine ( season) Covid-19 Vaccine ( season) [facility] Start: 12-14-2022 Influenza vaccination Influ[facility] Start: 04-15-2022 Advance Directive Discussion Advance Directive Discussion [facility] Start: 04-15-2022 Depression Assessment Depression Assessment [facility] Start: 10-20-2018 Urine microalbumin profile DTaP,Tdap,Td Vaccine (1 - Tdap) [facility] Start: 11-20-2015 Pneumococcal Vaccine: 65+ (1 - PCV) Pneumococcal Vaccine: 65+ (1 - PCV) [facility] Start: 2010 RSV Vaccine (1 - 1-dose 60+ series) RSV Vaccine (1 - 1-dose 60+ series) [facility] Start: 2000 Shingrix Vaccine (1 of 2) Shingrix Vaccine (1 of 2) [facility] Start: 11-20-1995 Cologuard (FIT-DNA) Cologuard (FIT-DNA) [facility] Start: 11-20-1995 Colonoscopy Colonoscopy [facility] Start: 11-20-1995 Colorectal Cancer Screening Colorectal Cancer Screening [facility] Start: 11-20-[address] COLONOGRAPHY [facility] Start: 11-20-1995 Diabetes Screening Diabetes Screening [facility] Start: 11-20-1995 Fecal Occult Blood Fecal Occult Blood [facility] Start: 11-20-1995 SIGMOIDOSCOPY SIGMOIDOSCOPY [facility] Start: 1985 Lipid 1996 panel - Serum or Plasma Lipid Screening [facility] Start: 1969 Urine microalbumin profile DTaP,Tdap,Td Vaccine (1 - Tdap) [facility] Start: 1968 Hepatitis C Screening Hepatitis C Screening [facility] Start: 05-22-1951 Covid-19 Vaccine (#1) Covid-19 Vaccine (#1) [facility] Start: 1950 Abdominal Aortic Aneurysm Screening Abdominal Aortic Aneurysm Screening [facility] Patient [facility] Work Phone: [facility] Immunizations Immunization Date Immunization Notes Care Provider [facility] 02-26-2022 influenza, high dose seasonal, preservative-free Patrica Cruz Other [facility] 02-26-2022 influenza virus vacc ine, unspecified formulation Crystal Cooley RN [facility] 04-16-2021 COVID-19 Vaccine Pfi zer - Documentation Purposes Only Patrica Cruz Other [facility] 03-23-2020 influenza (HD-IIV4) vaccine, age 65+ yr, high dose, quadrivalent, PF (FLUZONE HIGH-DOSE) Crystal Cooley RN [facility] 03-23-2020 influenza virus vacc ine, unspecified formulation GUICHO Cruz Work Phone: [facility] 03-23-2020 influenza, high dose seasonal, preservative-free Patrica Cruz Other [facility] 03-23-2020 pneumococcal polysaccharide vaccine, 23 valent Patrica Cruz Other [facility] 03-09-2019 influenza virus vacc ine, unspecified formulation GUICHO Luquele Work Phone: [facility] 03-09-2019 pneumococcal conjuga te vaccine, 13 valent Patrica Cruz Other [facility] 03-09-2019 influenza, high dose seasonal, preservative-free Patrica Cruz Other [facility] 10-19-2018 tetanus and diphther ia toxoids, adsorbed, preservative free, for adult use (5 Lf of tetanus toxoid and 2 Lf of diphtheria toxoid) Patrica Cruz Other [facility] 04-18-2018 Influenza, injectabl e, Madin [place] Canine Kidney, preservative free, quadrivalent Crystal Cooley RN [facility] 04-18-2018 influenza, seasonal, injectable Patrica Cruz Other [facility] 04-11-2017 influenza, injectabl e, quadrivalent, contains preservative Crystal Cooley RN [facility] 01-14-2016 influenza, injectabl e, quadrivalent, preservative free Crystal Cooley RN [facility] 01-07-2016 influenza, seasonal, injectable Patrica Cruz Other [facility] 12-14-2013 influenza, injectabl e, madin jonh canine kidney, preservative free Crystal Cooley RN [facility] Payers Date Payer Category Payer Unknown MMO MMO MEDICARE SUPPLEMENT [id number] 2021-Present [phone] [address] [place] [address] Indemnity [id number] 2015 Medicare MEDICARE MEDICAR E A AND B [id number] 2015-Present [phone] [address] [address] [place] [address] Medicare [id number] 1959 Medicare [id number] 1959 Self-pay 1959 Unknown [id number] 1950 Unknown [id number] 1950 Unknown [id number] 1950 Unknown [id number] 1950 Unknown [id number] 1950 Unknown [id number] 1950 Unknown [id number] 2.16.840.1.830876.3.579.2.1259 1950 Unknown [id number] 2.16.840.1.900051.3.579.2.727 1950 Unknown [id number] 2.16.840.1.659331.3.579.2.727 1950 Unknown [id number] 2.16.840.1.881631.3.579.2.727 1950 Unknown [id number] 2.16.840.1.157122.3.579.2.727 1950 Unknown [id number] 2.16.840.1.220586.3.579.2.727 1950 Unknown [id number] 2.16.840.1.650350.3.579.2.727 1950 Unknown [id number] 2.16.840.1.553110.3.579.2.727 1950 Unknown [id number] 2.16.840.1.705697.3.579.2.727 1950 Unknown [id number] 2.16.840.1.094966.3.579.2.727 1950 Unknown [id number] 2.16.840.1.470601.3.579.2.727 1950 Unknown [id number] 2.16.840.1.393072.3.579.2.727 Unknown [id number] 2.16.840.1.277889.3.579.2.593 Unknown [id number] 2.16.840.1.125733.3.579.2.593 Unknown [id number] 2.16.840.1.392802.3.579.2.531 Unknown [id number] 2.16.840.1.396262.3.579.2.531 Social History Date Type Detail Facility Start: 09-05-2021 End: 10-14-2023 Tobacco smoking status Ex-smoker (finding) [facility] Other Start: 01-22-2023 End: 01-23-2023 Sex Assigned At Male [facility] Other Start: 1950 Sex Assigned At Male [facility] History of tobacco use Current smoker [facility] History of tobacco use Cigarette Smoker [facility] History of tobacco use Passive smoker [facility] Start: 01-22-2023 End: 01-23-2023 History of Social function [facility] Start: 1950 Sex Assigned At Not on file [facility] Start: 01-23-2023 Tobacco use and exposure Smokeless tobacco non-user [facility] Start: 01-23-2023 End: 02-20-2023 Alcohol intake Ex-drinker (finding) [facility] National Score (1-100), lower number is lower risk 64 [facility] Start: 05-22-2018 Tobacco smoking status NHIS Never smoked tobacco (finding) [facility] Functional Status Date Assessment Result Facility 10-14-2023 Functional Status N/A [facility] 08-13-2023 Functional Status N/A [facility] 05-06-2023 Functional Status N/A [facility] 12-25-2022 Functional Status N/A [facility] 11-12-2022 Functional Status N/A [facility] Clinical Notes 02-22-2021 to 10-14-2023 Note Date & Type Note Facility 10-14-2023 Hospital Discharge instructions Patient Education 10/14/2023 12:30:27 Benign Prostatic Hyperplasia Benign Prostatic Hyperplasia Benign [...] urethra. Follow these instructions at home: Take iufx-woy-cknvbmh and prescription medicines only as told by [...] provider. Document Revised: 10/18/2021 Document Reviewed: 10/18/2021 [employer] Patient Education 2022 [employer]. Follow Up Care 05/06/2023 11:58:45 With:DEANNA WADDELL, Elia Cardona, URL Address: [facility] [address] , [place] [address]- [phone] When: Unknown [facility] 10-14-2023 Note Patient Education Urology Benign Prostatic Hyperplasia Benign [...] Follow these instructions at home: ? Take kvzi-ikc-omllwhu and prescription medicines only as told by [...] better with treatment. ? You develop side effec (more content not included)... [facility] 08-13-2023 Hospital Discharge instructions Patient Education 08/13/2023 [...] urethra. Follow these instructions at home: Take iicc-mpr-wdlglsc and prescription medicines only as told by [...] provider. Document Revised: 10/18/2021 Document Reviewed: 10/18/2021 [employer] Patient Education 2022 [employer]. 08/13/2023 09:52:56 Urinary Incontinence Urinary Incontinence Urinary [...] (electrical nerve stimulation). ?For women, using a biomedical equipment tech to prevent urine leaks. This is a [...] right after experiencing incontinence. General instructions Take imkf-cvw-atwmtjh and prescription medicines only as told by [...] important. Where to find more information [place] of Diabetes and Digestive and Kidney Diseases: www.niddk.nih.gov [employer]: www.urologyhealth.org Contact a health care [...] provider. Document Revised: 11/04/2020 Document Reviewed: 11/04/2020 [employer] Patient Education 2022 [employer]. 08/13/2023 09:52:52 Overactive Bladder, Adult Overactive Bladder, [...] your health care provider. General instructions Take zumh-sax-zfthcus and prescription medicines only as told by [...] provider. Document Revised: 12/19/2020 Document Reviewed: 12/19/2020 [employer] Patient Education 2022 [employer]. 08/13/2023 09:52:51 Kegel Exercises Kegel Exercises Kegel [...] provider. Document Revised: 08/10/2021 Document Reviewed: 08/10/2021 [employer] Patient Education 2022 [employer]. 08/13/2023 09:52:50 Hematuria, Adult Hematuria, Adult Hematuria [...] Follow these instructions at home: Medicines Take mifx-ull-wonvqkj and prescription medicines only as told by [...] or the blood stops without treatment. Take ktel-qxz-etlddpz and prescription medicines only as told by your health care provider. Drink enough fluid to keep your urine pale yellow. This information is not intended to replace advice given to you by your health care provider. Make sure you discuss any questions you have with your health care provider. Document Revised: 11/30/2020 Document Reviewed: 11/30/2020 [employer] Patient Education 2022 [employer]. [facility] 05-06-2023 Hospital Discharge instructions Patient Education [...] urethra. Follow these instructions at home: Take ilnk-vgb-oprovie and prescription medicines only as told by [...] provider. Document Revised: 10/18/2021 Document Reviewed: 10/18/2021 [employer] Patient Education 2022 [employer] Follow Up Care 12/27/2022 13:41:01 With:DEANNA WADDELL, Elia Cardona, URL Address: [facility] [address] , [place] [address]- When:Within 3 Month(s) [facility] [place] 04-16-2023 Evaluation note Encounter Date Diagnosis Assessment [...] I Risk 3.9% 30-day risk of , RI, or cardiac arrest. DASI (Berger Activity Status [...] of this and agrees to this plan. [facility] 12-26-2023 Evaluation note* Encounter Date Diagnosis Assessment Notes Treatment Notes Treatment Clinical Notes Mar, Pre-op evaluation (ICD-10 - Z01.818) [facility] 12-19-2023 Evaluation note* Encounter Date Diagnosis Assessment Notes Treatment Notes Treatment Clinical Notes Mar, Abnormal CBC (ICD-10 - R79.89) [facility] 12-18-2023 Evaluation note* Encounter Date Diagnosis [...] He will be seeing Dr. Deanna martell. 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 It was recommended to repeat these every year. He completed in 2022 but we never received results. These are requested today from [facility]. Mar, Obesity (BMI 35.0-39.9 without comorbidity) (ICD-10 - E66.9) Patient is advised to work on healthy diet choices and appropriate servings, weight control, regular exercise as directed, reduced fat intake, and salt avoidance. Patient voiced understanding of this and agrees to this plan. [facility] 12-05-2023 Evaluation note* Encounter Date Diagnosis [...] (ICD-10 - J40) See above treatment plan. [facility] 11-21-2023 Evaluation note* Encounter Date Diagnosis Assessment Notes Treatment Notes Treatment Clinical Notes Feb, COVID-19 (ICD-10 - U07.1) [facility] 11-08-2023 NoteHNO ID: [id number] Author: Kesha Clifton MD Service: ? Author Type: Physician Type: Progress Notes Filed: 02/20/2023 10:57 AM Note Text: PATIENT NAME: Rachel Ackerman CLINIC NO.: [id number] ATTENDING PHYSICIAN: Kesha Clifton MD DATE OF [...] Range Status 01/23/2023 7.9 % Final Abs [place] Date Value Ref Range (more content not included)...[facility] 02-20-2023 History of Present illness Narrative* Kesha Clifton MD - 02/20/2023 10:50 AM EST Images from the original note were not included. PATIENT NAME: Rachel Ackerman CLINIC NO.: [id number] ATTENDING PHYSICIAN: Kesha Clifton MD DATE OF [...] Range Status 01/23/2023 7.9 % Final Abs [place] Date Value Ref Range Status 01/23/2023 0.60 [...] do not hesitate to contact me at [phone]. Kesha Clifton MD Hematology/Medical Oncology [facility] spent a total of 20 minutes on the date of the service which included preparing to see the patient, nfcf-nq-yfqp patient care, completing clinical documentation, obtaining and/or reviewing separately obtained history, and counseling and educating the patient/family/caregiver. CC: Elia Huerta MD documented [facility] Miscellaneous Notes* Telephone Encounter - Patrica Peoples [...] Crystal Cooley RN Triage please fax to [phone] or call [phone] c/o Mary documented in this encounterTri[facility]10-11-2023 NoteHNO ID: [id number] Author: Kesha Clifton MD Service: ? Author Type: Physician Type: Progress Notes Filed: 01/23/2023 12:34 PM Note Text: PATIENT NAME: Rachel Ackerman [facility] NO.: [id number] ATTENDING PHYSICIAN: Kesha Clifton MD DATE OF [...] Heart: RRR without mur (more content not included)...[facility] 12-26-2022 [id number]:127[facility]09-12-2023 Hospital Discharge instructions Patient Education 12/25/2022 [...] [facility] [address], [place] [address]- Business (1) When: Unknown Comments:Office will call to schedule follow up [facility]09-12-2023 NoteCustom Cystoscopy ? Voiding after the [...] if you have a fever over 100 degrees.[facility] 12-25-2022 Evaluation + Plan noteExtracted from: Title:Urology Progress Note Author:Mario HUERTA MD Date:12/25/22 Impression and Plan Impression: #1. This gentleman has BPH with LUTS refractory to medications. He is obstructed urodynamically. He is desirous for a TURP. Plan: #1. He will continue his Flomax and pro scar for now. We are getting him scheduled for TURP under anesthesia. [facility]07-31-2023 Hospital Discharge instructions Patient Education 11/12/2022 [...] including vitamins, herbs, eye drops, creams, and dcmo-aln-pmmiwxw medicines. Any problems you or family members [...] provider tells you to take them. Taking cpba-mua-oegakaq medicines, vitamins, herbs, and supplements. Surgery safety [...] provider. Document Revised: 12/26/2021 Document Reviewed: 12/26/2021 [employer]to Patient Education 2022 [employer]. 11/12/2022 13:23:11 Urodynamic Testing Urodynamic Testing Urodynamic [...] including vitamins, herbs, eye drops, creams, and iasn-clp-vcmvxtd medicines. ?Whether you are or may be [...] provider. Document Revised: 12/13/2021 Document Reviewed: 11/04/2020 [employer]to Patient Education 2022 [employer]. 11/12/2022 13:13:30 Benign Prostatic Hyperplasia Benign Prostatic [...] urethra. Follow these instructions at home: Take rwlt-msc-rvvslje and prescription medicines only as told by [...] provider. Document Revised: 10/18/2021 Document Reviewed: 10/18/2021 [employer]to Patient Education 2022 [employer]. Follow Up Care 09/05/2021 11:51:48 With:DEANNA WADDELL, Elia Cardona, URL Address: [facility] [address] , [place] [phone] When: Unknown Comments:sched urodynamics and cysto [facility] [place] 06-15-2023 Evaluation note* Encounter Date [...] De Leon, under direct supervision of Patrica Cruz,DNP,REHABILITATION DIRECTOR,SUPERINTENDENT [employer]. Document reviewed and amended by provider signed [...] of this and agrees to this plan. [facility] 11-14-2022 Evaluation note* Encounter Date Diagnosis [...] due to some fluid behind right ear. [facility] 05-24-2022 Hospital Discharge instructions Patient Education [...] urethra. Follow these instructions at home: Take yzal-ryp-yhcrzhk and prescription medicines only as told by [...] 04/01/2006 Document Revised: 02/24/2019 Document Reviewed: 05/06/2017 [employer]is[employer]to Patient Education [facility] Follow Up Care 09/01/2020 11:16:04 With:Miguel Martinez MD, Will Carmichael [facility] Address: [facility] [address], [place] [address]- When: Unknown [facility] 05-12-2022 Evaluation note* Encounter Date Diagnosis Assessment [...] IV-CC, under direct supervision of Patrica Cruz, DNP,REHABILITATION DIRECTOR, [employer]. Document reviewed and amended by provider signed [...] screening done. PSA screening lab ordered today. [facility] 11-10-2021 Evaluation note* Encounter Date Diagnosis [...] exercise as directed, and reduce fat intake. [facility] Evaluation + Plan note Future Appointments Appointment Date:09/11/2022 09:15:00 AM Scheduled Provider:Will Rivera Jr., MD Location:[facility] Appointment Type:URO Office Visit Diagnostic Tests Pending * PSA Total 09/05/21 [facility] evaluation + Plan note Future Appointments Appointment Date:12/11/2022 08:15:00 AM Scheduled Provider: Location:[facility] Appointment Type:Urology CALL PAT FT Appointment Date:12/25/2022 03:00:00 PM Scheduled Provider: Location:[facility] Appointment Type:Urology FT Appointment Date:12/25/2022 03:45:00 PM Scheduled Provider: Location:[facility] Appointment Type:Urology FT [facility] evaluation + Plan note Future Appointments Appointment Date:05/06/2023 10:45:00 AM Scheduled Provider:Elia HUERTA MD Location:[facility] Appointment Type:URO Office Visit [facility] evaluation + Plan note Future Appointments Appointment Date:08/05/2023 09:30:00 AM Scheduled Provider:Elia HUERTA MD Location:[facility] Appointment Type:URO Office Visit [facility] evaldourpq + Plan note Future Appointments Appointment Date:10/14/2023 11:45:00 AM Scheduled Provider:Elia HUERTA MD Location:[facility] Appointment Type:URO Office Visit [facility] evaluation + Plan note Future Appointments Appointment Date:04/20/2024 11:15:00 AM Scheduled Provider:Elia HUERTA MD Location:[facility] Appointment Type:URO Office Visit [facility] evaluation noteNo InformationNoTao Sales Other Evaluation noteNo assessment information available [facility] Work Phone: Evalujzryr note* Diagnosis Thrombocytopenia (HCC)- Primary Thrombocytopenia, unspecified Platelets decreased (HCC) Thrombocytopenia, unspecified documented in this encounter [facility]* Diagnosis Onset Date Resolution Status Abnormality of abdominal aorta acute Allergic rhinitis acute Asthma acute Basal cell carcinoma of skin acute BPH (benign prostatic hyperplasia) acute Chronic maxillary sinusitis acute Generalized anxiety disorder acute Mixed hyperlipidemia acute Moderate episode of recurrent major depressive disorde r acute Obstructive sleep apnea (adult) (pediatric) acute Temporary low platelet count acute [id number] acute [facility] Work Phone: Hiskiqe general Narrative - Reported* Type Description Date [...] 02/2017 Surgical History tonsillectomy Hospitalization History see [facility] Other Histrbv general Narrative - Reported* Type Description Date [...] total knee replacement. 2020 Hospitalization History see [facility] Other History general Narrative - Reported* Type [...] total knee replacement. 2020 Hospitalization History see [facility] Other Hospital course Narrative No data available for this section [facility] Hospital Discharge instructions No data available for this section [facility] Hospital Discharge instructionsAmbulatory Orders* Referral to Pulmonology Location: [facility] Work Phone: Progress note No data available for this section [facility] Summary Purpose Family History No Family [...] May 19, 2018 1:53pm Hospital Course Note [facility] Clinical Discharge Summary PERSON INFORMATION Name RACHEL ACKERMAN Age 68 Years 1950 Sex MALE Language Lebanese PCP Patrica Cruz DNP Marital Status Med Service Med/Surg Acct# Arrival 06/01/2019 06:00:00 Visit Reason SURGERY - RIGHT TOTAL KNEE Acuity LOS Address: [id number] [place] [id number] Comment: PROVIDER INFORMATION VITALS INFORMATION Vital Sign [...] history): All Problems Alcoholism / SNOMED CT 74167008 / Confirmed Anxiety / SNOMED CT 32962590 / Confirmed Asthma / SNOMED CT 822081263 / Confirmed Depression / SNOMED CT 88541805 / Confirmed Former smoker / SNOMED CT 04944947 / Confirmed Hyperlipidemia / SNOMED CT 52668601 / Confirmed Skin cancer / SNOMED CT 2724652211 / Confirmed Sleep apnea / SNOMED CT 65165529 / Confirmed Physical Examination VS/Measurements Vital Signs [...] history): All Problems Alcoholism / SNOMED CT 37048283 / Confirmed Anxiety / SNOMED CT 72095246 / Confirmed Asthma / SNOMED CT 854864050 / Confirmed Depression / SNOMED CT 30695896 / Confirmed Former smoker / SNOMED CT 02229505 / Confirmed Hyperlipidemia / SNOMED CT 52325853 / Confirmed Skin cancer / SNOMED CT 9680352896 / Confirmed Sleep apnea / SNOMED CT 68190566 / Confirmed Physical Examination VS/Measurements Vital Signs (last 24 hrs) Last Charted Heart Rate Peripheral 87 bpm (JUN 01:48) Resp Rate 20 br/min (JUN 01:48) SBP H 147mmHg (JUN 01:48) DBP 80 mmHg (JUN 01:48) SpO2 97 % (JUN 01:48) Weight 109.50 kg (JUN 01 06:25) Height 175.26 cm (F (more content not included)... Reason for Referral Reason * 03/05 Refer t o urology, would like to see someone other than Dr. Rivera (he is a current patient of Dr. Rivera), would like to see Dr. Huerta or Dr. Rogers Diagnosis 1 Benign prostatic hyp erplasia with lower urinary tract symptoms (N40.1) Referral Organization [facility] Referring Provider First Name Patrica Referring Provider Last Name Anthony Referring Provider Specialty Nurse Pract itioner Referred Organization [facility] Referred Provider Eduardo Rogers Referred Address [address] [place],[address] Referred Provider Specialty Urology Referral Priority Routine [...] apnea (adult) (pediatric) Temporary low platelet count [id number] Additional Source Comments (unrecognized sect ion and content) No Status Records FoundNo Status Records FoundNo Status Records FoundNo Status Records FoundNo Status Records FoundNo Status Records FoundNo Status Records Found INFORMATION SOURCE (unrecogn ized section and content) DATE CREATED AUTHOR 06/16/2019 [facility] DATE CREATED AUTHOR AUTHOR'S ORGANIZ ATION [facility] DATE CREATED AUTHOR AUTHOR'S ORGANIZ ATION 02/21/2023 [facility] DATE CREATED AUTHOR AUTHOR'S ORGANIZ ATION 05/24/2023 [facility] DATE CREATED AUTHOR AUTHOR'S ORGANIZ ATION 08/18/2023 [facility] EPIC DATE CREATED AUTHOR AUTHOR'S ORGANIZ ATION 10/15/2023 [facility] REASON FOR VISIT (unrecogniz ed section [...] Status Dates Patrica Cruz DNP Primary Care [facility], Attending Provider Active Start: July 08, [...] or prosecute any alcohol or drug abuse patient.[facility] HospitalIn the event this information is protected by the Federal Confidentiality of Alcohol and Drug Abuse Patient Records regulations: The Federal rules restrict any use of the information to criminally investigate or prosecute any alcohol or drug abuse patient.[facility] HospitalIn the event this information is protected by the Federal Confidentiality of Alcohol and Drug Abuse Patient Records regulations: The Federal rules restrict any use of the information to criminally investigate or prosecute any alcohol or drug abuse patient.[facility] FOR RECORDS PERTAINING TO PATIENTS WHO [...] BE BASED ON THE PRIMARY CLINICAL RECORDS. [facility]. provides no warranty or guarantee of the accuracy or completeness of information in this document.
== END 2024-01-15 09:27 | disposition home or self-care (01) ==
LOC: CT 09:26
PROVIDERS: PCP Nurse Practitioner Family; Visit Provider Internal Medicine
DX: R91.8 Other nonspecific abnormal finding of lung field (principal)
CPT/HCPCS: 71250

== ENCOUNTER 2024-01-31 08:42 | Outpatient (OUT) | payer MEDICARE, OTHER, SELFPAY ==
--- OUTSIDE RECORDS SUMMARY | 2024-01-31 08:52 | XMS_ITS | CCD ---
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 Name Role Phone REQUEST, DR NONE LISTED [...] Care Provider MD Genaro Sheldon Attending Provider [phone] Unavailable Primary Care Provider Unavailabl e KARAMLOU, KESHA Referring Unavailable EMILYLOU, KESHA Attending Unavailable BERNARDINO CLIFTONRA Attending Unavailable GUICHO Cruz Primary Care Provider GUICHO Cruz Attending Provider [phone] Patrica Cruz Attending Unavailable Patrica Cruz Admitting Unavailable Patrica Cruz Primary Care Unavailable Genaro Sheldon Admitting Unavailable Genaro Sheldon Attending Unavailable Patrica Cruz Primary Care Unavailable GUICHO Cruz Primary Care Provider GUICHO Cruz Attending Provider [phone] JORDANA ESCAMILLA Attending Unavailable JORDANA ESCAMILLA Referring Unavailable MARIA FERNANDA ECHOLS Attending Unavailable HUERTA, Elia R Attending Unavailable HUERTA, Elia R Attending Unavailable HUERTA, Elia R Attending Unavailable Orzech, Haydee X Attending Unavailable HUERTA, Elia R Attending Unavailable [...] [Doxazosin] Drug Allergy 5 Anaphylaxis (disorder) [facility] Repository (20 sources) Doxazosin; Translations: [doxazosin] Drug Allergy 3 Anaphylaxis (disorder), anaphylaxis [facility] Other (1 source) Doxazosin Drug Allergy 4 [facility] Repository Medications Current Medications Medication Drug Class(es) [...] 06/26/19 Status: Ordered take 1 capsule by [facility] every six hours Acetaminophen 500 MG 1 capsule as needed Orally every 6 hrs Active Comment on above: Take 500 mg by mouth every 6 hours as needed. [id number] 200 actuat albuterol 0.09 mg/actuat metered dose inhaler (19 sources) beta2-Adrenergic Agonist Start: 07-08-2023 take 2 [...] take 1 tablet by mouth once daily Atorvastatin Active 0 .ROUTE .COMPLEX 90 October 07, 2023 2:03pm TAKE 1 TABLET BY MOUTH EVERY DAY Start: 06-26-2019 End: 10-07-2023 Atorvastatin Discontinued 1 TAB PO Daily July 08, 2023 12:00am October 07, 2023 2:03pm FreeTextSig: TAKE 1 TABLET DAILY Orally Once a day; Note: Source Status: Taking; Refills: 3; Provider: Anthony Vides Comment on above: Take 80 mg by mouth once daily. azithromycin 250 mg oral tablet (5 sources) Macrolide Antimicrobial Start: 03-19-20 23 Zithromax Z-Arya 250 MG 2 tablets on the first day, then 1 tablet daily for 4 days Orally Once a day for 5 day(s) Mar, Active BIPAP Machine Auto Pap Peak 20 PS 4 min 8 (14 sources) Start: 10-28-19 14 BIPAP Machine Auto Pap Peak 20 PS 4 min 8 as directed nightly for Download 1 month, fax to office Oct, Active Breo Ellipta 200 mcg-25 mcg/inh inhalation powder (6 sources) Start: 06-26-19 20 take 1 puff(s) by inhalation once daily Breo Ellipta 200 mcg-25 mcg/inh inhalation powder puff(s), Inhalation, Daily, Refill(s) 0 Start Date: 06/26/19 Status: Ordered busPIRone hydrochloride 30 mg oral tablet (20 sources) Start: 08-15-19 17 take 1 tablet by mouth twice daily [...] 5 mg by mouth o nce daily. Fluticasone-Umeclidin -Vilanter (1 source) Start: 01-24-2024 Fluticasone-Umeclidi n-Vilanter (Trelegy Ellipta) 200-62.5-25 mcg blister with device Active 1 INH INHALATION Daily January 24, 2024 12:00am 12 hr guaiFENesin 600 mg extended release oral tablet (7 sources) Start: 07-08-2023 take 1 tablet by mouth twice daily, then take 1 tablet by mouth every twelve hours Guaifenesin (Mucinex) 600 mg tablet extended release 12hr Active 600 MG PO Twice daily July 08, 2023 12:00am Mucinex Not-Taki ng/PRN Mucinex Active ibuprofen 200 mg oral tablet (16 sources) Nonsteroidal Anti-inflammatory Drug Start: 07-08-2023 take [...] 0 Start Date: 10/14/23 Status: Ordered Start: 06-26-2019 take 1 mg by mouth once daily sertraline 100 mg Tab mg tab(s), Oral, Daily, Refills(s) 0 Start Date: 06/26/19 Status: Ordered take 1 tablet by [facility] twice daily Sertraline HCl 100 MG TAKE 1 TABLET BY MOUTH TWICE A DAY for 90 Active Comment on above: Take 100 mg by mouth once daily. solifenacin succinate 5 mg oral tablet (3 sources) Cholinergic Muscarinic Antagonist Start: take 1 tablet by mouth once daily Solifenacin (Vesicare) 5 mg tablet Active 5 MG PO Daily January 24, 2024 12:00am Start: 09-12-2023 solifenacin 10 mg Tab 10 mg = 1 tab(s), Oral, Daily, to start after completion of 1 month 5 mg dose, # 30 tab(s), Refills(s) 1, Pharmacy: [facility]/pharmacy #[id number], 179, cm, 08/13/23 9:15:00 EDT, Height/Length Dosing, 109, kg, 08/13/23 9:15:00 EDT, Weight Dosing Start Date: 09/12/23 Status: Ordered Start: 08-13-2023 End: 09-12-2023 take 1 tablet by mouth once daily solifenacin 5 mg Tab 5 mg = 1 tab(s), Oral, Daily, X 30 day(s), # 30 tab(s), Refills(s) 0, Pharmacy: [facility]/pharmacy #[id number], 179, cm, 08/13/23 9:15:00 EDT, Height/Length Dosing, 109, kg, 08/13/23 9:15:00 EDT, Weight Dosing Start Date: 08/13/23 Stop Date: 09/12/23 Status: Ordered tamsulosin hydrochloride 0.4 mg oral capsule (20 sources) alpha-Adrenergic Desirae Start: 09-05-2021 take 1 capsule by mouth once daily tamsulosin 0.4 mg Cap 0.4 mg = 1 cap(s), Oral, Daily, # 90 cap(s), Refills(s) 3, Pharmacy: [facility]/pharmacy #[id number], 174, cm, 09/05/21 10:55:00 EDT, [...] procedure, # 2 tab(s), Refills(s) 0, Pharmacy: [facility]/pharmacy #[id number], 174, cm, 11/12/22 12:36:00 EDT, Height/Length Dosing, 112, kg, 11/12/22 12:36:00 EDT, Weight Dosing Start Date: 11/12/22 Status: Ordered Fluticasone Furoate-Vilanterol (19 sources) Corticosteroid, beta2-Adrenergic Agonist Start: 07-08-2023 End: 01-24-2024 Fluticasone Furoate-Vilanterol (Breo Ellipta) 200-25 mcg/dose blister with device Discontinued INHALATION July 08, 2023 12:00am January 24, 2024 11:29am Start: 07-08-2023 Fluticasone Fu roate-Vilanterol (Breo Ellipta) 200-25 mcg/dose blister with device Active INHALATION July 08, 2023 12:00am take 1 puff(s) by in halation once daily Breo Ellipta 200-25 MCG/ACT INHALE 1 PUFF INTO THE LUNGS EVERY DAY for 30 Active fluticasone-marino nterol (BREO ELLIPTA) 200-25 mcg/dose inhaler Inhale 1 Inhalation as instructed once daily. 0 Active Comment on above: Inhale 1 Inhalation as instructed once daily. Problems Active Problems Problem Classification Problem Date Documented Date Episodic/Chronic Anxiety disorders (20 sources) Generalized anxiety disorder; Translations: [Generalized anxiety disorder] Onset: 02-22-2021 Resolved: 08-24-2021 06-26-2019 Chronic Asthma (20 sources) Asthma; Translations: [Unspecified asthma, uncomplicated] Onset: 02-22-2021 Resolved: 08-24-2021 06-26-2019 Chronic Cardiac and circulatory congenital anomalies (20 sources) Congenital malformation of aorta unspecified; Translations: [Abnormality of abdominal aorta] Onset: 02-22-2021 Resolved: 08-24-2021 Chronic Chronic obstructive pulmonary disease and bronchiectasis (1 source) Bronchitis, not specified as acute or chronic Episodic Coagulation and hemorrhagic disorders (20 sources) Platelet count below reference range; Translations: [Thrombocytopenia, unspecified] Onset: 02-22-2021 Resolved: 02-22-2021 Chronic Diabetes mellitus without complication (15 sources) Newly diagnosed diabetes; Translations: [Type 2 [...] 12-25-2022 Episodic Other non-epithelial cancer of skin (17 sources) Basal cell carcinoma of skin; Translations: [...] Resolved: 08-24-2021 Episodic Other upper respiratory disease (16 sources) Allergic rhinitis; Translations: [Allergic rhinitis, unspecified] 07-08-2023 Chronic Other upper respiratory disease (1 source) Allergic rhinitis, unspecified; Translations: [Allergic rhinitis, cause unspecified] 07-08-2023 Chronic Other upper respiratory infections (17 sources) Chronic maxillary sinusitis; Translations: [Chronic maxillary [...] used for this result was chemiluminescence using [employer]'s Access Hybritech PSA reagent. PSA Screen, Totalon 10-14-19 Prostate specific Ag [Mass/Vol] 0.4 ng/mL Normal 0.1-3.5 [facility] Comment on above: Result Comment: The concentration of PSA determined by different manufacturers can vary due to differences in assay methods and reagent specificity. Values obtained from different assay methods cannot be used interchangeably. The methodology used for this result was chemiluminescence using [employer]'s Access Hybritech PSA reagent. Performed By: #### 1 [id number] #### [facility] [address] [place] [address] Urology Office/Clinic Noteon 10-14-2023 Urology Office/Clinic Note Urology Office/Clinic Note Chief Complaint OAB HPI Staff 2 month f/u DX: OAB, Urge Incontinence, BPH, Urinary Retention, Gross Hematuria S/P TURP 04/18/23 *Started on Solifenacin 5-10mg qd therapy from [facility] at time of last encounter (worsening urgency). [...] [facility] [address], [place] [address] [phone] Additional Instructions: 6 mos (no labs) Patient Education Benign Prostatic Hyperplasia I, Karen Chaudhary, personally scribed for Dr. Huerta on 10/14/2023 12:33:05. . Documentation recorded by the scribe, Karen [...] Daily Zoloft 100 (more content not included)... [facility] Comment on above: Result Comment: Elec tronically Signed By: Elia HUERTA MD\.br\Date and Time Signed: 10/14/23 12:48 EDT\.br\Electronically Co-Signed By: Karen Chaudhary\.br\Date and Time Co-Signed: 10/14/23 12:33 EDT [place] 08-14-2023 Screens [id number] IFF [facility] Screens [id number]#1.0 0TIFF [facility] Ambulatory Visit Summaryon 0 08-13-2023 Ambulatory [...] WADDELL, Elia Cardona Where: [facility] Patient Educationon 08-13-19 24 Patient Education Obstetrics and Gynecology Overactive Bladder, [...] health care provider. General instructions ? Take qody-vzx-zjfrifp and prescription medicines only as told by [...] monitor yo (more content not included)... Normal [facility] Urology Office/Clinic Noteon 08-13-2023 Urology Office/Clinic [...] with voice recognition artificial intelligence software, specifically [employer], [employer] and or [employer]. Substitutions may have occurred due to the [...] day(s), # 30 tab(s), Refills(s) 0, Pharmacy: [facility]/pharmacy #[id number], 179, cm, 08/13/23 9:15:00 EDT, Height/Length Dosing, 109, kg, 08/13/23 9:15:00 EDT, Weight Dosing solifenacin, 10 mg = 1 tab(s), Oral, Daily, to start after completion of 1 month 5 mg dose, # 30 tab(s), Refills(s) 1, Pharmacy: [facility]/pharmacy #[id number], 179, cm, 08/13/23 9:15:00 EDT, Height/Length Dosing, 109, kg, 08/13/23 9:15:00 EDT, Weight Dosing 2. Urge urinary incontinence (N39.41: Urge incontinence) Patient is wearing depends throughout the day, changes 2-3 times. See #1. Ordered: solifenacin, 5 mg = 1 tab(s), Oral, Daily, X 30 day(s), # 30 tab(s), Refills(s) 0, Pharmacy: [facility]/pharmacy #[id number], 179, cm, 08/13/23 9:15:00 EDT, Height/Length Dosing, 109, kg, 08/13/23 9:15:00 EDT, Weight Dosing solifenacin, 10 mg = 1 tab(s), Oral, Daily, to start after completion of 1 month 5 mg dose, # 30 tab(s), Refills(s) 1, Pharmacy: [facility]/pharmacy #[id number], 179, cm, 08/13/23 9:15:00 EDT, Height/Length [...] well. Continue timed voids, voiding maneuvers. Ordered: 96822 Measure Post Void residual urine and/or bladder capacity by US- non-imaging 5. Gross hematuria (R31.0: Gross hematuria) At prior OV was still experiencing hematuria af (more content not included)... Normal [facility] Comment on above: Result Comment: Elec tronically Signed By: MASOOD Camilo APRN, [place] X\.delia\Date and Time Signed: 08/13/23 09:53 EDT Ambulatory Visit Summaryon 0 05-06-2023 Ambulatory Visit Summary RACHEL ACKERMAN :1950 Visit Date:05/06/2023 Ambulatory Visit Instructions Your Diagnosis BPH with urinary obstruction Urinary retention Gross hematuria Your Care Team Attending Physician - Elia [...] with DEANNA WADDELL, Elia Cardona, RAMON When: In 3 months Where: [facility] [address] [place] [address]- Medications What How Much When Instructions Unchanged [...] night to (more content not included)... Normal [facility] Patient Educationon 05-06-19 Patient Education Urology Benign [...] Follow these instructions at home: ? Take uqnj-fpt-eieibni and prescription medicines only as told by [...] the medicine (more content not included)... Normal [facility] Urology Office/Clinic Noteon 05-06-2023 Urology Office/Clinic [...] water intake. Follow-up With When Contact Information Elia HUERTA MD, URL In 3 months [facility] [address] [place] [address]- Additional Instructions: Patient Education Benign Prostatic Hyperplasia [...] cell carcinoma (more content not included)... Normal [facility] Comment on above: Result Comment: Elec tronically Signed By: Elia HUERTA MD\.br\Date and Time Signed: 05/06/23 11:55 EST\.br\Electronically Co-Signed By: Italia Redd\.br\Date and Time Co-Signed: 05/06/23 11:54 EST Pathology Noteon 04-23-2023 Pathology Note [id number]#1.00 TIFF Normal [facility] Ambulatory Visit Summaryon 0 04-22-2023 Ambulatory [...] WADDELL, Elia Cardona Where: [facility] Operative Reporton Operative Report [id number] 0TIFF [facility] Consultation Noteon 04-16-19 24 Consultation Note [id number]#1.0 0TIFF [facility] XR chest 2V*on 04-13-2023 XR chest 2V* [facility] [place] [address] XRay Report Signed Patient: Rachel Ackerman MR#: [id number] : 1950 Acct:[id number] Age/Sex: 72 / M ADM Date: 04/13/23 Loc: XD Room: Type: [facility] Attending Dr: Patrica Cruz DNP Copies to: [...] Douglas Wallace M.D.04/13/2023 2:02 PM Dictation Location: [facility]- Transcribed By: [facility] 04/13/231401 Dictated By: Douglas Wallace DO 04/13/231400 Signed By: 04/13/23 140 [facility] HbA1c (Bld) [Mass fraction]o n 04-01-2023 A1C HEMOGLOBIN 6.7 [facility] Other A1C HEMOGLOBIN [facility] Other Lab Report[facility] 03-15-2023 Lab Reports [id number]#1.0 0TIFF [facility] CNOVSPon 02-20-2023 CNOVSP Visit (SP) Office ([place]) RACHEL ACKERMAN ([id number]) 1950 M Date Time Provider Department 02/20/23 10:45 AM KESHA CLIFTON During your visit today, we recorded the following information about you: Temperature Pulse Respiration Blood pressure 97.7 degrees 65/minute 16/minute 130/74 Weight Height 114.9 kg 1.778 m Kesha Clifton MD 02/20/2023 10:57 AM Signed PATIENT NAME: Rachel Ackerman CLINIC NO.: [id number] ATTENDING PHYSICIAN: Kesha Clifton MD DATE OF [...] (more content not included)... Normal [facility] Consultation Noteon 02-08-20 Consultation Note [id number]#1.0 0TIFF Normal [facility] Lab Reportson 02-07-2023 Lab Reports [id number]#1.0 0TIFF Normal [facility] CNPNon 01-30-2023 CNPN Telephone (HEMTSA) RACHEL ACKERMAN ([id number]) 1950 Date Time Provider Department 01/30/23 CRYSTAL COOLEY [...] Fully Assessed Reason for Visit: Patient Question [5467] Prescriptions as of 01/30/2023 - acetaminophen (TYLENOL) [...] Encounter Status:Closed by CRYSTAL COOLEY on 01/30/23 [facility] Domonique 01-28-2023 [facility] Telephone (CHRISTIANO) RACHEL ACKERMAN ([id number]) 1950 M Date Time Provider Department 01/28/23 [...] Crystal Cooley RN Triage please fax to [phone] or call [phone] c/o Kesha Hackett MD 01/28/2023 2:23 PM [...] CRYSTAL COOLEY on 01/28/23 Normal [facility] CBC W Auto Differential pane l (Bld)on 01-23-2023 Basophils (Bld) [#/Vol] 0.08 10*3/uL Normal <0.11 [facility] Comment on above: Order Comment: Speci men Type: BLOOD SPECIMENOrdering Facility: [facility] Address: [address] [place] [address] Performed By: #### 5 7021-8 ####[facility] LABCLIA [id number] [place] [address] Basophils/100 WBC (Bld) 1.1 % Normal [facility] Comment on above: Order Comment: Speci men Type: BLOOD SPECIMENOrdering Facility: [facility] Address: [address] [place] [address] Performed By: #### 5 7021-8 ####[facility] LABCLIA [id number] [place] [address] Differential cell count method Nom (Bld) Auto Normal [facility] Comment on above: Order Comment: Speci men Type: BLOOD SPECIMENOrdering Facility: [facility] Address: [address] [place] [address] Performed By: #### 5 7021-8 ####[facility] LABCLIA [id number] [place] [address] Eosinophils (Bld) [#/Vol] 0.12 10*3/uL Normal <0.46 [facility] Comment on above: Order Comment: Speci men Type: BLOOD SPECIMENOrdering Facility: [facility] Address: [address] [place] [address] Performed By: #### 5 7021-8 ####[facility] LABCLIA [id number] [place] [address] Eosinophils/100 WBC (Bld) 1.6 % Normal [facility] Comment on above: Order Comment: Speci men Type: BLOOD SPECIMENOrdering Facility: [facility] Address: [address] [place] [address] Performed By: #### 5 7021-8 ####[facility] LABCLIA [id number] [place] [address] Erythrocyte distribution width (RBC) [Ratio] 13.5 % Normal 11.5-15.0 [facility] Comment on above: Order Comment: Speci men Type: BLOOD SPECIMENOrdering Facility: [facility] Address: [address] [place] [address] Performed By: #### 5 7021-8 ####[facility] LABCLIA [id number] [place] [address] Hematocrit (Bld) [Volume fraction] 44.7 % Normal 39.0-51.0 [facility] Comment on above: Order Comment: Speci men Type: BLOOD SPECIMENOrdering Facility: [facility] Address: [address] [place] [address] Performed By: #### 5 7021-8 ####[facility] LABIA [id number] [place] [address] Hemoglobin (Bld) [Mass/Vol] 15.4 g/dL Normal 13.0-17.0 [facility] Comment on above: Order Comment: Speci men Type: BLOOD SPECIMENOrdering Facility: [facility] Address: [address] [place] [address] Performed By: #### 5 7021-8 ####[facility] LABCLIA [id number] [place] [address] Immature granulocytes (Bld) [#/Vol] 0.04 10*3/uL Normal <0.10 [facility] Comment on above: Order Comment: Speci men Type: BLOOD SPECIMENOrdering Facility: [facility] Address: [address] [place] [address] Performed By: #### 5 7021-8 ####[facility] LABCLIA [id number] [place] [address] Immature granulocytes/100 WBC (Bld) 0.5 % Normal [facility] Comment on above: Order Comment: Speci men Type: BLOOD SPECIMENOrdering Facility: [facility] Address: [address] [place] [address] Performed By: #### 5 7021-8 ####[facility] LABCLIA [id number] [place] [address] Lymphocytes (Bld) [#/Vol] 2.40 10*3/uL Normal 1.00-4.00 [facility] Comment on above: Order Comment: Speci men Type: BLOOD SPECIMENOrdering Facility: [facility] Address: [address] [place] [address] Performed By: #### 5 7021-8 ####[facility] LABIA [id number] [place] [address] Lymphocytes/100 WBC (Bld) 31.6 % Normal [facility] Comment on above: Order Comment: Speci men Type: BLOOD SPECIMENOrdering Facility: [facility] Address: [address] [place] [address] Performed By: #### 5 7021-8 ####[facility] LABCLIA [id number] [place] [address] MCH (RBC) [Entitic mass] 28.7 pg Normal 26.0-34.0 [facility] Comment on above: Order Comment: Speci men Type: BLOOD SPECIMENOrdering Facility: [facility] Address: [address] [place] [address] Performed By: #### 5 7021-8 ####[facility] LABIA [id number] [place] [address] MCHC (RBC) [Mass/Vol] 34.5 g/dL Normal 30.5-36.0 [facility] Comment on above: Order Comment: Speci men Type: BLOOD SPECIMENOrdering Facility: [facility] Address: [address] [place] [address] Performed By: #### 5 7021-8 ####[facility] LABCLIA [id number] [place] [address] MCV (RBC) [Entitic vol] 83.2 fL Normal 80.0-100.0 [facility] Comment on above: Order Comment: Speci men Type: BLOOD SPECIMENOrdering Facility: [facility] Address: [address] [place] [address] Performed By: #### 5 7021-8 ####[facility] LABCLIA [id number] [place] [address] Monocytes (Bld) [#/Vol] 0.60 10*3/uL Normal <0.87 [facility] Comment on above: Order Comment: Speci men Type: BLOOD SPECIMENOrdering Facility: [facility] Address: [address] [place] [address] Performed By: #### 5 7021-8 ####[facility] LABCLIA [id number] [place] [address] Monocytes/100 WBC (Bld) 7.9 % Normal [facility] Comment on above: Order Comment: Speci men Type: BLOOD SPECIMENOrdering Facility: [facility] Address: [address] [place] [address] Performed By: #### 5 7021-8 ####[facility] LABCLIA [id number] [place] [address] Neutrophils (Bld) [#/Vol] 4.36 10*3/uL Normal 1.45-7.50 [facility] Comment on above: Order Comment: Speci men Type: BLOOD SPECIMENOrdering Facility: [facility] Address: [address] [place] [address] Performed By: #### 5 7021-8 ####[facility] LABCLIA [id number] [place] [address] Neutrophils/100 WBC (Bld) 57.3 % Normal [facility] Comment on above: Order Comment: Speci men Type: BLOOD SPECIMENOrdering Facility: [facility] Address: [address] [place] [address] Performed By: #### 5 7021-8 ####[facility] LABCLIA [id number] [place] [address] Nucleated RBC (Bld) [#/Vol] 10*3/uL Normal <0.01 [facility] Comment on above: Order Comment: Speci men Type: BLOOD SPECIMENOrdering Facility: [facility] Address: [address] [place] [address] Performed By: #### 5 7021-8 ####[facility] LABCLIA [id number] [place] [address] Nucleated RBC/100 WBC (Bld) [Ratio] 0.0 /100 WBC Normal [facility] Comment on above: Order Comment: Speci men Type: BLOOD SPECIMENOrdering Facility: [facility] Address: [address] [place] [address] Performed By: #### 5 7021-8 ####[facility] LABCLIA [id number] [place] [address] Platelet mean volume (Bld) [Entitic vol] 9.2 fL Normal 9.0-12.7 [facility] Comment on above: Order Comment: Speci men Type: BLOOD SPECIMENOrdering Facility: [facility] Address: [address] [place] [address] Performed By: #### 5 7021-8 ####[facility] LABCLIA [id number] [place] [address] Platelets (Bld) [#/Vol] 128 10*3/uL Low 150-400 [facility] Comment on above: Order Comment: Speci men Type: BLOOD SPECIMENOrdering Facility: [facility] Address: [address] [place] [address] Performed By: #### 5 7021-8 ####[facility] LABCLIA [id number] [place] [address] RBC (Bld) [#/Vol] 5.37 10*6/uL Normal 4.20-6.00 [facility] Comment on above: Order Comment: Speci men Type: BLOOD SPECIMENOrdering Facility: [facility] Address: [address] [place] [address] Performed By: #### 5 7021-8 ####[facility] LABIA [id number] [place] [address] WBC (Bld) [#/Vol] 7.60 10*3/uL Normal 3.70-11.00 [facility] Comment on above: Order Comment: Speci men Type: BLOOD SPECIMENOrdering Facility: [facility] Address: [address] [place] [address] Performed By: #### 5 7021-8 ####[facility] [id number] [place] [address] CNOVSPon 01-23-2023 CNOVSP Visit (SP) Office ([place]) RACHEL ACKERMAN ([id number]) 1950 Date Time Provider Department 01/23/23 12:00 PM KESHA CLIFTON During your visit today, we recorded the following information about you: Temperature Pulse Respiration Blood pressure 97.6 degrees 65/minute 18/minute 137/76 Weight Height 114.3 kg 1.778 m Kesha Clifton MD 01/23/2023 12:34 PM Signed PATIENT NAME: Rachel Ackerman [facility] NO.: [id number] ATTENDING PHYSICIAN: Kesha Clifton MD DATE OF [...] (more content not included)... Normal [facility] Comprehensive metabolic 2000 panelon 01-23-2023 Albumin [Mass/Vol] 4.7 g/dL Normal 3.9-4.9 [facility] Comment on above: Order Comment: Speci men Type: BLOOD SPECIMENOrdering Facility: [facility] Address: [address] [place] [address] Performed By: #### 2 9138, 2531-0 ####[facility] LABCLIA [id number] [place] [id number] [place] ALP [Catalytic activity/Vol] 97 U/L Normal 38-113 [facility] Comment on above: Order Comment: Speci men Type: BLOOD SPECIMENOrdering Facility: [facility] Address: [address] [place] [address] Performed By: #### 2 4328, 2531-0 ####[facility] LABCLIA [id number] [place] [address] [place] ALT [Catalytic activity/Vol] 38 U/L Normal 10-54 [facility] Comment on above: Order Comment: Speci men Type: BLOOD SPECIMENOrdering Facility: [facility] Address: [address] [place] [address] Performed By: #### 2 43206-20, 0 ####[facility] LABCLIA [id number] [place] [address] [place] Anion gap [Moles/Vol] 13 mmol/L Normal 9-18 [facility] Comment on above: Order Comment: Speci men Type: BLOOD SPECIMENOrdering Facility: [facility] Address: [address] [place] [address] Performed By: #### 2 4328, 0 ####[facility] LABCLIA [id number] [place] [address] [place] AST [Catalytic activity/Vol] 29 U/L Normal 14-40 [facility] Comment on above: Order Comment: Speci men Type: BLOOD SPECIMENOrdering Facility: [facility] Address: [address] [place] [address] Performed By: #### 2 4328, 2531-0 ####[facility] LABCLIA [id number] [place] [id number] [place] Bilirubin [Mass/Vol] 1.3 mg/dL Normal 0.2-1.3 [facility] Comment on above: Order Comment: Speci men Type: BLOOD SPECIMENOrdering Facility: [facility] Address: [address] [place] [address] Performed By: #### 2 432-8, 2531-0 ####[facility] LABCLIA [id number] [address] [address] [place] Calcium [Mass/Vol] 9.0 mg/dL Normal 8.5-10.2 [facility] Comment on above: Order Comment: Speci men Type: BLOOD SPECIMENOrdering Facility: [facility] Address: [address] [place] [address] Performed By: #### 2 4328, 0 ####[facility] LABCLIA [id number] [place] [address] [place] Chloride [Moles/Vol] 103 mmol/L Normal 97-105 [facility] Comment on above: Order Comment: Speci men Type: BLOOD SPECIMENOrdering Facility: [facility] Address: [address] [place] [address] Performed By: #### 2 4328, 0 ####[facility] LABCLIA [id number] [place] [address] [place] CO2 [Moles/Vol] 23 mmol/L Normal 22-30 [facility] Comment on above: Order Comment: Speci men Type: BLOOD SPECIMENOrdering Facility: [facility] Address: [address] [place] [address] Performed By: #### 2 4323-8, 2531-0 ####[facility] LABCLIA [id number] [address] [address] [place] Creatinine [Mass/Vol] 0.98 mg/dL Normal 0.73-1.22 [facility] Comment on above: Order Comment: Speci men Type: BLOOD SPECIMENOrdering Facility: [facility] Address: [address] [place] [address] Performed By: #### 2 4323-8, 0 ####[facility] [id number] [address] [place] Creatinine and Glomerular filtration rate.predicted panel (S/P/Bld) 82 mL/min/1.73m??? Normal >=60 [facility] Comment on above: Order Comment: Alana morris Type: BLOOD SPECIMENOrdering Facility: [facility] Address: [address] [place] [address] Result Comment: Maureen mated Glomerular Filtration Rate [...] GFR. Performed By: #### 2 4323-8, 0 ####[facility] LABIA [id number] [place] [address] [place] Glucose [Mass/Vol] 89 mg/dL Normal 74-99 [facility] Comment on above: Order Comment: Alana morris Type: BLOOD SPECIMENOrdering Facility: [facility] Address: [address] [place] [address] Result Comment: The [place] [employer] (ADA) provides guidance for cutoff [...] Standards of Medical Care in Diabetes 2016, [place] [employer]. Diabetes Care. 2016.39(Suppl 1). Performed By: #### 2 4323-8, 2532-0 ####[facility] LABCLIA [id number] [place] [address] [place] Potassium [Moles/Vol] 4.2 mmol/L Normal 3.7-5.1 [facility] Comment on above: Order Comment: Speci men Type: BLOOD SPECIMENOrdering Facility: [facility] Address: [address] [place] [address] Performed By: #### 2 4328, 0 ####[facility] LABCLIA [id number] [place] [address] [place] Protein [Mass/Vol] 6.9 g/dL Normal 6.3-8.0 [facility] Comment on above: Order Comment: Speci men Type: BLOOD SPECIMENOrdering Facility: [facility] Address: [address] [place] [address] Performed By: #### 2 4328, 0 ####[facility] LABCLIA [id number] [place] [address] [place] Sodium [Moles/Vol] 139 mmol/L Normal 136-144 [facility] Comment on above: Order Comment: Speci men Type: BLOOD SPECIMENOrdering Facility: [facility] Address: [address] [place] [address] Performed By: #### 2 4328, 0 ####[facility] LABCLIA [id number] [place] [address] [place] Urea nitrogen [Mass/Vol] 15 mg/dL Normal 9-24 [facility] Comment on above: Order Comment: Speci men Type: BLOOD SPECIMENOrdering Facility: [facility] Address: [address] [place] [address] Performed By: #### 2 4323-8, 2531-0 ####[facility] LABCLIA [id number] [place] [address] [place] Ferritin SerPl-mCncon 2022 Ferritin [Mass/Vol] 306.0 ng/mL Normal 30.3-565.7 [facility] Comment on above: Order Comment: Speci men Type: BLOOD SPECIMEN [facility] Address: [address] [place] [address] Performed By: #### 2 276-4, 54559-5 #### [facility] LAB CLIA [id number] [address] [place] [address] [place] [facility] 01-[facility]-20 Folate [Mass/Vol] 11.3 ng/mL Normal >4.7 [facility] Comment on above: Order Comment: Speci arturo Type: BLOOD SPECIMENOrdering Facility: [facility] Address: [address] [place] [address] Performed By: #### 2 885-2, 2132-9, 2284-8 ####[facility] LABCLIA [id number] [place] [address] [place] HBV core Ab Ser Qlon 023 HBV core Ab Ql (S) Negative Normal Negative [facility] Comment on above: Order Comment: Alana morris Type: BLOOD SPECIMENOrdering Facility: [facility] Address: [address] [place] [address] Result Comment: No e vidence of current or past infection with Hepatitis B virus. Should recent infection be suspected, repeat testing may be considered 3-4 weeks after this draw. Performed By: #### 2 2322-2, 42977-4, 5195-3 ####[facility] LABCLIA [id number] [place] [address] [place] HBV surface Ab Ql (S)on 01-13 HBV surface Ab Qn (S) <8.00 Normal [facility] Comment on above: Order Comment: Speci men Type: BLOOD SPECIMENOrdering Facility: [facility] Address: [address] [place] [address] Result Comment: <8 m IU/mL: No serological evidence of immunity to Hepatitis B Virus. >/= 8 to <12 mIU/mL: No serological evidence of immunity to Hepatitis B Virus. >/= 12 mIU/mL: Consistent with serological evidence of immunity to Hepatitis B Virus. Performed By: #### 2 2322-2, 64988-3, 5195-3 ####[facility] LABCLIA [id number] [address] [place] HBV surface Ab Ser Qlon 01-13 HBV surface Ab Ql (S) Negative Normal [facility] Comment on above: Order Comment: Speci men Type: BLOOD SPECIMENOrdering Facility: [facility] Address: [address] [place] [address] Result Comment: No s erological evidence of immunity to Hepatitis B Virus. Performed By: #### 2 2322-2, 31112-4, 5195-3 ####[facility] LABCLIA [id number] [address] [place] HBV surface Ag Ser Qlon 01-13 HBV surface Ag Ql (S) Negative Normal Negative [facility] Comment on above: Order Comment: Speci men Type: BLOOD SPECIMENOrdering Facility: [facility] Address: [address] [place] [address] Performed By: #### 2 2322-2, 74553-7, 5195-3 ####[facility] LABCLIA [id number] [address] OF [facility] HCV Ab Ser Qlon 01-23-2023 HCV Ab Ql (S) Negative Normal Negative [facility] Comment on above: Order Comment: Speci men Type: BLOOD SPECIMENOrdering Facility: [facility] Address: [address] [place] [address] Result Comment: The result suggests no evidence of active infection with Hepatitis C virus. Should recent infection be suspected, repeat testing may be considered 4-6 weeks after this draw. Performed By: #### 1 6128-1 ####[facility] LABCLIA [id number] [address] IMMUNOFIXATION SCREEN, SERUM on 01-23-2023 MPA RESULT No M protein is identified. Normal No M protein is identified. [facility] Comment on above: Order Comment: Speci men Type: BLOOD SPECIMENOrdering Facility: [facility] Address: [address] [place] [address] Performed By: #### I FESC ####[facility] LABCLIA [id number] [address] OF [facility] STAFF REVIEW (MPA) Reviewed by Guerline Swift MD Normal [facility] Comment on above: Order Comment: Speci men Type: BLOOD SPECIMENOrdering Facility: [facility] Address: [address] [place] [address] Performed By: #### I FES ####[facility] LABCLIA [id number] [place] [address] [place] IMMUNOGLOBULINS GAMon 2022 IgA [Mass/Vol] 217 mg/dL Normal 70-400 [facility] Comment on above: Order Comment: Speci men Type: BLOOD SPECIMENOrdering Facility: [facility] Address: [address] [place] [address] Performed By: #### S ERIMM ####[facility] LABCLIA [id number] [place] [address] [place] IgG [Mass/Vol] 816 mg/dL Normal 700-1600 [facility] Comment on above: Order Comment: Speci men Type: BLOOD SPECIMENOrdering Facility: [facility] Address: [address] [place] [address] Performed By: #### S ERIMM ####[facility] LABCLIA [id number] [place] [address] [place] IgM [Mass/Vol] 37 mg/dL Low 40-230 [facility] Comment on above: Order Comment: Speci men Type: BLOOD SPECIMENOrdering Facility: [facility] Address: [address] [place] [address] Performed By: #### S ERIMM ####[facility] LABCLIA [id number] [place] [address] [place] Iron and Iron binding capaci ty panelon 01-23-2023 Iron [Mass/Vol] 82 ug/dL Normal 41-186 [facility] Comment on above: Order Comment: Speci men Type: BLOOD SPECIMEN [facility] Address: [address] [place] [address] Performed By: #### 2 276-4, 19674-5 #### [facility] LAB CLIA [id number] [address] [place] [address] [place] Iron binding capacity [Mass/Vol] 374 ug/dL Normal 232-386 [facility] Comment on above: Order Comment: Speci men Type: BLOOD SPECIMEN [facility] Address: [address] [place] [address] Performed By: #### 2 276-4, 11546-7 #### [facility] CLIA [id number] [address] [place] [address] [place] Iron/TIBC [Molar ratio] 21.9 % Normal 15.0-57.0 [facility] Comment on above: Order Comment: Speci men Type: BLOOD SPECIMEN [facility] Address: [address] [place] [address] Performed By: #### 2 276-4, 09311-2 #### [facility] CLIA [id number] [facility] [place] [address] [place] KAPPA/DIAZ,FREE,SERon 2022 Immunoglobulin light chains.kappa.free (S) [Mass/Vol] 16.8 mg/L Normal 3.3-19.4 [facility] Comment on above: Order Comment: Speci men Type: BLOOD SPECIMEN [facility] Address: [address] [place] [address] Result Comment: Rare ly, increased serum free light chains levels may not be detected or accurately quantified due to prozone phenomenon or in high viscosity samples using this immunoturbidimetric assay. Correlation with other laboratory results and clinical findings is recommended. The [place] Free Light Chain was performed using the Binding Site Optilite immunoturbidimetric method. Result obtained with different assay methods or kits cannot be used interchangeably. Performed By: #### K LFRS #### [facility] CLIA [id number] [address] [place] [address] [place] Immunoglobulin light chains.kappa/Immuno globulin light chains.lambda (S) [Mass ratio] 1.62 Normal 0.26-1.65 [facility] Comment on above: Order Comment: Speci men Type: BLOOD SPECIMEN [facility] Address: [address] [place] [address] Performed By: #### K LFRS #### [facility] CLIA [id number] [address] [place] [address] [place] Immunoglobulin light chains.lambda.free [Mass/Vol] 10.4 mg/L Normal 5.7-26.3 [facility] Comment on above: Order Comment: Speci men Type: BLOOD SPECIMEN [facility] Address: [address] [place] [address] Result Comment: Rare ly, increased serum free [...] #### K LFRS #### [facility] CLIA [id number] [address] [place] [address] [place] LDH SerPl-cCncon 01-23-2023 LDH [Catalytic activity/Vol] 255 U/L High 135-225 [facility] Comment on above: Order Comment: Speci men Type: BLOOD SPECIMENOrdering Facility: [facility] Address: [address] [place] [address] Performed By: #### 2 4323-8, 2532-0 ####[facility] [id number] [place] [address] [place] PROTEIN ELECTROPHORESIS SERU M (P)on 01-23-2023 Albumin [Mass/Vol] 4.57 g/dL Normal 3.43-5.41 [facility] Comment on above: Order Comment: Speci men Type: BLOOD SPECIMENOrdering Facility: [facility] Address: [address] [place] [address] Performed By: #### L [id number] ####[facility] LABIA [id number] [place] [address] [place] Alpha 1 globulin Elph [Mass/Vol] 0.27 g/dL Normal 0.18-0.43 [facility] Comment on above: Order Comment: Speci men Type: BLOOD SPECIMENOrdering Facility: [facility] Address: [address] [place] [address] Performed By: #### L [id number] ####[facility] LABIA [id number] [place] [address] [place] Alpha 2 globulin Elph [Mass/Vol] 0.66 g/dL Normal 0.42-0.98 [facility] Comment on above: Order Comment: Speci men Type: BLOOD SPECIMENOrdering Facility: [facility] Address: [address] [place] [address] Performed By: #### L [id number] ####[facility] LABIA [id number] [place] [address] [place] Beta globulin Elph [Mass/Vol] 0.79 g/dL Normal 0.61-1.17 [facility] Comment on above: Order Comment: Speci men Type: BLOOD SPECIMENOrdering Facility: [facility] Address: [address] [place] [address] Performed By: #### L [id number] ####[facility] LABCLIA [id number] [place] [address] [place] Gamma globulin Elph [Mass/Vol] 0.61 g/dL Normal 0.53-1.51 [facility] Comment on above: Order Comment: Speci men Type: BLOOD SPECIMENOrdering Facility: [facility] Address: [address] [place] [address] Performed By: #### L [id number] ####[facility] LABIA [id number] [place] [address] [place] M-PROTEIN LOCATION Normal [facility] Comment on above: Order Comment: Speci men Type: BLOOD SPECIMENOrdering Facility: [facility] Address: [address] [place] [address] Result Comment: Not Applicable. Performed By: #### L [id number] ####[facility] LABIA [id number] [place] [address] [place] Protein Fractions [Interp] No definitive M protein is identified on protein electrophoresis. Normal No definitive M protein is identified on protein electrophores is. [facility] Comment on above: Order Comment: Speci men Type: BLOOD SPECIMENOrdering Facility: [facility] Address: [address] [place] [address] Performed By: #### L [id number] ####[facility] LABIA [id number] [place] [address] [place] Protein.monoclonal Elph [Mass/Vol] 0.00 g/dL Normal <=0.00 [facility] Comment on above: Order Comment: Speci men Type: BLOOD SPECIMENOrdering Facility: [facility] Address: [address] [place] [address] Performed By: #### L [id number] ####[facility] LABIA [id number] [place] [address] [place] SPE STAFF REVIEW Reviewed by Guerline Swift MD Normal [facility] Comment on above: Order Comment: Speci men Type: BLOOD SPECIMENOrdering Facility: [facility] Address: [place] [address] Performed By: #### L [id number] ####[facility] LABCLIA [id number] [place] [address] [place] [facility]20[facility] Protein [Mass/Vol] 6.7 g/dL Normal 6.3-8.0 [facility] Comment on above: Order Comment: Speci men Type: BLOOD SPECIMEN [facility] Address: [place] [address] Performed By: #### 2 885-2, 2131-12, 2283-11 #### [facility] CLIA [id number] [address] [place] [address] [place] Vit B12 SerPl-[facility] 023 Cobalamin (Vitamin B12) [Mass/Vol] 516 pg/mL Normal 232-1245 [facility] Comment on above: Order Comment: Speci men Type: BLOOD SPECIMEN [facility] Address: [place] [address] Performed By: #### 2 885-2, 2131-12, 2283-11 #### [facility] CLIA [id number] [address] [place] [address] [place] Lab Reportson 01-21-2023 Lab Reports [id number]#1.0 0TIFF Normal [facility] Formson 01-18-2023 Forms [id number]#1. 00TIFF Normal [facility] ECG 12-Leadon 01-16-2023 ECG 12-Lead [id number]#1.0 0CD:127 Normal [facility] Lab Reportson 01-16-2023 Lab Reports [id number]#1.0 0CD:127 [facility] Lab Reports [id number]#1.0 0CD:127 [facility] Consent for Procedure/Surger yon 12-28-2022 Consent for Procedure/Surgery [id number]#1. 00CD:127 [facility] Consent for Procedure/Surger yon 12-26-2022 Consent for Procedure/Surgery [id number]#1. 00CD:127 [facility] IntraOperative Documentson 0 12-26-2022 IntraOperative Documents [id number]#1. 00CD:127 [facility] IntraOperative Documents [id number]#1. 00CD:127 [facility] Outpatient Surgery Discharge Instructionon 12-26-2022 Outpatient Surgery Discharge Instruction [id number]#1. 00CD:127 [facility] Consent for Treatmenton 12-14 Consent for Treatment [id number]#1.0 0CD:127 [facility] Main OR Intraoperative Recor don 12-25-2022 Main OR Intraoperative Record IntraOp Document Type FTURO Summary Primary Physician: Elia HUERTA MD Finalized Date/Time: 12/25/22 16:59:16 Pt. Name: RACHEL ACKERMAN/Sex: 1950 Male Med Rec #: [id number] Physician: Elia HUERTA MD Financial #: [id number] Pt. Type: O Room/Bed: / Admit/Disch: 12/25/22 [...] Pena CST Role Performed Surgeon - Primary Corrugator Operator - Primary Scrub - Primary Time In [...] Description CYSTOSCOPY Primary Procedure Yes Primary Surgeon DEANNA WADDELL, Elia Cardona Start 12/25/22 16:55:00 Stop 12/25/22 16:58:00 Anesthesia [...] Verified (If Participants Jihan Rader RN, Applicable) Eber HERNANDEZ, Kinza Carlos Time Out Complete 12/25/22 16:55:00 Allergies Reviewed? [...] By: Jihan Rader RN 12/25/22 16:59 Normal [facility] Main OR Preoperative Recordo n 12-25-2022 Main OR Preoperative Record Holding Area Document Type FTURO Summary Primary Physician: Elia HUERTA MD Finalized Date/Time: 12/25/22 16:18:39 Pt. Name: RACHEL ACKERMAN/Sex: 1950 Male Med Rec #: [id number] Physician: Elia HUERTA MD Financial #: [id number] Pt. Type: O Room/Bed: / Admit/Disch: 12/25/22 [...] By: Kinza Pulliam RN 12/25/22 16:18 Normal [facility] Operative Reporton Operative Report Patient: RACHEL [...] up arranged. Plan for a TURP.. 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 Asthma / SNOMED CT 578238576 / Confirmed Moderate episode of recurrent major depressive disorder / SNOMED CT 054958737 / Confirmed Generalized anxiety disorder / SNOMED CT 76799088 / Confirmed Prediabetes / SNOMED CT 4423092415 / Confirmed Urinary retention / SNOMED CT 822662997 / Confirmed Nocturia / SNOMED CT 208843269 / Confirmed Urinary urgency / SNOMED CT 068159793 / Confirmed Post-void dribbling / SNOMED CT 160167555 / Confirmed Incontinence / SNOMED CT 98930156 / Confirmed Urinary frequency / SNOMED CT 292362162 / Confirmed Former smoker / SNOMED CT 08379460 / Confirmed Histories Past Medical History: Resolved Arthritis (2478770): Resolved. Asthma (670591206): Resolved. Family History: Hypertension Father () Alcoholism Father () Primary malignant neoplasm of bone Sister () Heart disease Father () Mother () Procedure history: Nasal sinus procedure (1601833623) in the month of 02/2017 at 66 Years. Excision of basal cell carcinoma- Left ear (801306677) in the month of 08/2016 at 65 Years. Cataract surgery (067708748) in the month of 02/2016 at 65 Years. Colonoscopy (443230073) in 2016 at 65 Years. Arthroscopy of knee- Right (540933369) in the month of 06/2014 at 63 Years. Pharyngeal operation for obstructive sleep apnea and snoring (878097222) in 1999 at 49 Years. Tonsillectomy (599986518). Social History Social & Psychosocial Habits Tobacco [...] him scheduled for TURP under anesthesia. Normal [facility] Comment on above: Result Comment: Elec tronically Signed By: DEANNA WADDELL, Elia Cardona\.br\Date and Time Signed: 12/25/22 17:07 EDT Consent for Procedure/Surger yon 11-13-2022 Consent for Procedure/Surgery [id number]#[id number] 0CD:127 Normal [facility] Ambulatory Visit Summaryon 0 11-12-2022 Ambulatory Visit Summary RACHEL ACKERMAN :1950 Visit Date:11/12/2022 Ambulatory Visit Instructions Your Diagnosis BPH with urinary obstruction Urinary urgency Tests Performed Urnls Dip Stick Auto w/o Microscopy POC 01218 Your Care Team Attending Physician - Elia [...] Where: [facility] [address] , [place] [phone] Medications What How Much When Instructions Unchanged [...] Urnls Dip Stick Auto w/o Microscopy POC 17870 (11/12/2022) Bilirubin Urine Dipstick - Negative Blood Urine Dipstick - Negative Glucose Urine Dipstick - Negative Ketones Urine Dipstick - Negative Leukocytes Urine Dipstick - Negative Nitrite Urine Dipstick - Negative Protein Urine Dipstick - Negative Specific Garwood Urine Dipstick - 1.010 Urine Appearance Urine [...] including vitamins, herbs, eye drops, creams, and hgkz-vcf-kmqykkz medicines. ? Any problems you or family members have had with anesthetic medicines. ? Any bleeding problems you have. ? Any surgeries you have had. ? Any medical conditions you have. ? Any prostate infections you have had. What are the risks? Generally, this is a safe procedure. However, problems may occur, including: ? Infection. ? Bleeding. ? (more content not included)... Normal [facility] Patient Educationon 11-13-19 23 Patient Education [...] including vitamins, herbs, eye drops, creams, and ddua-xci-gyrtwug medicines. ? Any problems you or family [...] tells you to take them. ? Taking ojja-dmb-avzpxnp medicines, vitamins, herbs, and supplements. Surgery safety [...] health care (more content not included)... Normal [facility] Urology Office/Clinic Noteon 11-12-2022 Urology Office/Clinic [...] [facility] [address], [place] [phone] Additional Instructions: sched urodynamics and cysto Patient [...] Aerosol, Inhalat (more content not included)... Normal [facility] Comment on above: Result Comment: Elec tronically Signed By: Mary Gibson\Date and Time Signed: 11/12/22 13:54 EDT A1C HEMOGLOBINon 09-27-2022 HbA1c (Bld) [Mass fraction] 6.0 % [facility] Other HbA1c (Bld) [Mass fraction]o n 09-27-2022 A1C HEMOGLOBIN [facility] Other A1C HEMOGLOBINon 02-26-2022 HbA1c (Bld) [Mass fraction] 5.6 % [facility] Other HbA1c (Bld) [Mass fraction]o n 02-26-2022 A1C HEMOGLOBIN [facility] Other HbA1c (Bld) [Mass fraction]o n 08-24-2021 A1C HEMOGLOBIN 6.1 [facility] Other A1C HEMOGLOBIN [facility] Other A1C HEMOGLOBINon 02-22-2021 HbA1c (Bld) [Mass fraction] 5.9 % [facility] Other HbA1c (Bld) [Mass fraction]o n 02-22-2021 A1C HEMOGLOBIN [facility] Other CBC AUTO DIFFon 09-02-2020 BASO # 0.1 103/ul Normal 0.0-0.1 [facility] Comment on above: Performed By: #### C BC #### [facility] [address] [place] [address] Martha Naye Basophils/100 WBC (Bld) 1.2 % Normal 0.2-2.0 [facility] Comment on above: Performed By: #### C BC #### [facility] [address] [place], [place] [address] Martha Naye EO # 0.2 103/ul Normal 0.0-0.7 [facility] Comment on above: Performed By: #### C BC #### [facility] [address] [place], [place] [address] Martha Naye Eosinophils/100 WBC (Bld) 2.4 % Normal 0.9-7.0 [facility] Comment on above: Performed By: #### C BC #### [facility] [address] [place], [place] [address] Martha Naye Erythrocyte distribution width (RBC) [Ratio] 13.1 % Normal 11.0-15.0 [facility] Comment on above: Performed By: #### C BC #### [facility] [address] [address] Martha Yancey Hematocrit (Bld) [Volume fraction] 45.5 % Normal 42.0-54.0 [facility] Comment on above: Performed By: #### C BC #### [facility] [address] [id number] Marthajosué Yancey Hemoglobin (Bld) [Mass/Vol] 15.6 g/dL Normal 14.0-18.0 [facility] Comment on above: Performed By: #### C BC #### [facility] [address] [place] [address] Marthajosué Yancey IG # 0.08 10e3/ul Critically high 0.00-0.03 [facility] Comment on above: Performed By: #### C BC #### [facility] [address] [place] [address] Marthajosué Yancey IG % 1.1 % Critically high 0.0-0.5 [facility] Comment on above: Performed By: #### C BC #### [facility] [address] [place], [place] [id number] Martha Yancey LYMPH # 2.7 103/ul Normal 1.2-3.8 [facility] Comment on above: Performed By: #### C BC #### [facility] [address] [place] [address] Martha Yancey Lymphocytes/100 WBC (Bld) 35.8 % Normal 20.5-60.0 [facility] Comment on above: Performed By: #### C BC #### [facility] [address] [place], [place] [id number] Martha Yancey MANUAL DIFF REQ NO Normal [facility] Comment on above: Performed By: #### C BC #### [facility] [address] [place], [place] [id number] Martha Yancey MCH (RBC) [Entitic mass] 29.4 pg Normal 25.9-34.0 [facility] Comment on above: Performed By: #### C BC #### [facility] [address] [place], [place] [address] Martha Yancey MCHC (RBC) [Mass/Vol] 34.3 g/dL Normal 29.9-35.2 [facility] Comment on above: Performed By: #### C BC #### [facility] [address] [place], [place] [address] Martha Yancey MCV (RBC) [Entitic vol] 85.7 fL Normal 80.0-94.0 [facility] Comment on above: Performed By: #### C BC #### [facility] [address] [place], [place] [address] Martha Naye MONO # 0.6 103/ul Normal 0.3-0.8 [facility] Comment on above: Performed By: #### C BC #### [facility] [address] [id number] Martha Yancey Monocytes/100 WBC (Bld) 7.4 % Normal 1.7-12.0 [facility] Comment on above: Performed By: #### C BC #### [facility] [address] [id number] Marthajosué Majoren NEUT # 3.9 103/ul Normal 1.4-6.5 [facility] Comment on above: Performed By: #### C BC #### [facility] [address] [place], [place] [address] [place]osué Yancey Neutrophils/100 WBC (Bld) 52.1 % Normal 43.0-75.0 [facility] Comment on above: Performed By: #### C BC #### [facility] [address] [place], [place] [address] Marth[place]osué Yancey Platelet mean volume (Bld) [Entitic vol] 9.1 fL Critically low 9.5-13.5 [facility] Comment on above: Performed By: #### C BC #### [facility] [address] [id number] Martha Naye PLT 135 103/ul Critically low 150-450 [facility] Comment on above: Performed By: #### C BC #### [facility] [address] [place], [place] [address] Martha Naye RBC 5.31 106/ul Normal 4.70-6.10 [facility] Comment on above: Performed By: #### C BC #### [facility] [address] [id number] Martha Naye WBC 7.5 103/ul Normal 4.0-11.0 [facility] Comment on above: Performed By: #### C BC #### [facility] [address] [id number] Martha Naye LIPID PROFILEon 09-02-2020 CHOL-HDL RATIO NORM SEE BELOW Normal [facility] Comment on above: Result Comment: 3.3 - 4.4 LOW RISK 4.4 - 7.1 AVERAGE RISK 7.1 - 11.0 MODERATE RISK >11.0 HIGH RISK Performed By: #### T SH, CMP, LIPID #### [facility] [address] [place] [address] Martha Naye Cholesterol [Mass/Vol] 171 mg/dL Normal <=200 [facility] Comment on above: Performed By: #### T SH, CMP, LIPID #### [facility] [address] [place], [place] [address] Martha Naye Cholesterol in HDL [Mass/Vol] 35 mg/dL Normal [facility] Comment on above: Performed By: #### T SH, CMP, LIPID #### [facility] [address] [place], [place] [address] Martha Naye Cholesterol in LDL [Mass/Vol] 81.8 mg/dL Normal [facility] Comment on above: Performed By: #### T SH, CMP, LIPID #### [facility] [address] [place], [place] [address] Martha Naye Cholesterol.total/C holesterol in HDL [Mass ratio] 4.9 {ratio} Normal [facility] Comment on above: Performed By: #### T SH, CMP, LIPID #### [facility] [address] [place], [place] [address] Martha Naye HDL NORMAL > or = 60 mg/dl - LO W CARDIOVASCULAR RISK <40 mg/dl - HIGH CARDIOVASCULAR RISK Normal [facility] Comment on above: Performed By: #### T GEORGI, CMP, LIPID #### [facility] [address] [place] [id number] Martha Naye LDL CALC NORMAL SEE BELOW Normal [facility] Comment on above: Result Comment: <100 mg/dl OPTIMAL 100 - 129 mg/dl NEAR OR ABOVE OPTIMAL 130 - 159 mg/dl BORDERLINE HIGH 160 - 189 mg/dl HIGH >190 mg/dl VERY HIGH Performed By: #### T SH, CMP, LIPID #### [facility] [address] [address] Martha Naye Triglyceride [Mass/Vol] 271 mg/dL Critically high <=150 [facility] Comment on above: Performed By: #### T GEORGI, CMP, LIPID #### [facility] [address] [place] [address] Martha Naye VLDL CALC 54.2 mg/dL Normal [facility] Comment on above: Performed By: #### T GEORGI, CMP, LIPID #### [facility] [address] [address] Martha Naye MICROALB CREAT RATIO RANDOMo n 09-02-2020 mALB <1.3 Normal <=30.0 [facility] Comment on above: Performed By: #### M CRR #### [facility] [address] [place] [address] Martha Naye MALB CR RATIO 10.7 mg/g Normal 0.0-29.9 [facility] Comment on above: Performed By: #### M CRR #### [facility] [address] [address] Martha Naye MALB CR RATIO RANGE SEE BELOW Normal [facility] Comment on above: Result Comment: NO M ICROALBUMINURIA 0-29 MG/G CLINICAL MICROALBUMINURIA 30-300 MG/G MACROALBUMINURIA >300 MG/G Performed By: #### M CRR #### [facility] [address] [place] [address] Martha Naye URINE CREAT 121.61 mg/dL Normal 20.00-300.00 [facility] Comment on above: Performed By: #### M CRR #### [facility] [address] [place], [place] [address] Martha Naye PROF 14(COMP METB)on 021 Albumin [Mass/Vol] 4.2 g/dL Normal 3.5-5.0 [facility] Comment on above: Performed By: #### T SH, CMP, LIPID #### [facility] [address] [place], [place] [address] Martha Naye Albumin/Globulin [Mass ratio] 1.2 {ratio} Normal [facility] Comment on above: Performed By: #### T SH, CMP, LIPID #### [facility] [address] [place] [id number] Martha Naye ALP [Catalytic activity/Vol] 87 U/L Normal 38-126 [facility] Comment on above: Performed By: #### T SH, CMP, LIPID #### [facility] [address] [place] [phone] Martha Naye ALT [Catalytic activity/Vol] 51 U/L Normal 21-72 [facility] Comment on above: Performed By: #### T SH, CMP, LIPID #### [facility] [address] [place], [place] [address] Martha Naye Anion gap [Moles/Vol] 15.9 mmol/L Normal [facility] Comment on above: Performed By: #### T SH, CMP, LIPID #### [facility] [address] [place], [place] [address] Martha Naye AST [Catalytic activity/Vol] 31 U/L Normal 17-59 [facility] Comment on above: Performed By: #### T SH, CMP, LIPID #### [facility] [address] [place], [place] [address] Martha Naye Bilirubin [Mass/Vol] 1.3 mg/dL Normal 0.2-1.3 [facility] Comment on above: Performed By: #### T SH, CMP, LIPID #### [facility] [address] [place], [place] [address] Martha Naye Calcium [Mass/Vol] 8.5 mg/dL Normal 8.4-10.2 [facility] Comment on above: Performed By: #### T SH, CMP, LIPID #### [facility] [address] [place] [address] Martha Naye Chloride [Moles/Vol] 104 mmol/L Normal 98-107 [facility] Comment on above: Performed By: #### T SH, CMP, LIPID #### [facility] [address] [address] Martha Naye CO2 [Moles/Vol] 25.2 mmol/L Normal 22.0-30.0 [facility] Comment on above: Performed By: #### T SH, CMP, LIPID #### [facility] [address] [address] Martha Naye Creatinine [Mass/Vol] 1.02 mg/dL Normal 0.66-1.25 [facility] Comment on above: Performed By: #### T SH, CMP, LIPID #### [facility] [address] [place] [address] Martha Naye EGFR-AF SWISS >60 Normal >=60 [facility] Comment on above: Performed By: #### T SH, CMP, LIPID #### [facility] [address] [place] [address] Martha Naye EGFR-NON AF SWISS >60 Normal >=60 [facility] Comment on above: Performed By: #### T SH, CMP, LIPID #### [facility] [address] [address] Martha Naye Globulin (S) [Mass/Vol] 3.6 g/dL Normal [facility] Comment on above: Performed By: #### T SH, CMP, LIPID #### [facility] [address] [place] [address] Martha Naye Glucose [Mass/Vol] 107 mg/dL Critically high 74-106 [facility] Comment on above: Performed By: #### T SH, CMP, LIPID #### [facility] [address] [address] Martha Naye Potassium [Moles/Vol] 4.1 mmol/L Normal 3.4-5.0 [facility] Comment on above: Performed By: #### T SH, CMP, LIPID #### [facility] [address] [address] Martha Naye Protein [Mass/Vol] 7.8 g/dL Normal 6.1-8.2 [facility] Comment on above: Performed By: #### T SH, CMP, LIPID #### [facility] [address] [place] [address] Martha Naye Sodium [Moles/Vol] 141 mmol/L Normal 137-145 [facility] Comment on above: Performed By: #### T SH, CMP, LIPID #### [facility] [address] [place] [address] Martha Naye Urea nitrogen [Mass/Vol] 17.0 mg/dL Normal 9.0-20.0 [facility] Comment on above: Performed By: #### T SH, CMP, LIPID #### [facility] [address] [place] [address] Martha Naye Urea nitrogen/Creatinine [Mass ratio] 16.7 mg/mg Normal [facility] Comment on above: Performed By: #### T SH, CMP, LIPID #### [facility] [address] [place] [address] Martha Naye TSHon 09-02-2020 TSH 1.860 uIU/mL Normal 0.470-4.[address] [facility] Comment on above: Performed By: #### T SH, CMP, LIPID #### [facility] [address] [place] [address] Martha Naye TSH RANGE SEE BELOW Normal [facility] Comment on above: Result Comment: <0.3 4 UIU/ml HYPERTHYROID 0.34-5.60 UIU/ml EUTHYROID >5.60 UIU/ml HYPOTHYROID Performed By: #### T SH, CMP, LIPID #### [facility] [address] [place] [address] Martha Naye MAGR Intraoperative Recordon 06-16-2019 MAGR Intraoperative Record MAGR Intra-Op Record Summary Primary Physician: Finalized Date/Time: 06/16/19 12:25:52 Pt. Name: RACHEL ACKERMAN /Sex: 1950 MALE Med Rec #: [id number] Physician: Jordana Escamilla DO Financial #: [id number] Pt. 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 STATUS: Home PAYOR: Medicare Grouper: 470 MS-DRG [employer] HIP AND KNEE JOINT REPLACEMENT OR REATTACHMENT OF LOWER EXTREMITY W/O CORRECTION Low Trim 0 High Trim 999 ADMIT DX: M17.11 Unilateral primary osteoarthritis, right knee REASON FOR VISIT DX: FINAL DX: PRINCIPAL: M17.11 Y Unilateral primary osteoarthritis, right knee SECONDARY: G47.30 Y Sleep apnea, unspecified J44.9 Y Chronic obstructive pulmonary disease, unspecified PROCEDURES DOCTOR NAME DATE [id number] Replacement of Right Knee Joint Jordana Escamilla And 06/01/2019 with Synthetic Substitute, Cemented, Open Approach NOTE: The code number assigned matches the documented diagnosis and / or procedure in the patient's chart. However, the narrative phrase printed from the coding software may appear abbreviated, or result in slightly different terminology. Coded By: Daisy Esquivel Date Saved: 06/04/2019 10:36 am [facility] Consent Formson 06-04-2019 Consent Forms [id number] 20 [id number]#1.0 0[facility] History and Physicalon 06-04 History and Physical [id number]#1.0 0[facility] Medicare Messageon 0 Medicare Message [id number] 42 [id number]#1.[address] [place] [address] Medication Managementon 05-17 Medication Management [id number]#1.[address] [place] [address] Outside Recordson 06-04-2019 Outside Records [id number] 20 [id number]#1.[address] [place] [address] Provider Orderson 06-04-2019 Provider Orders [id number] 20 [id number]#1.[address] [place] [address] Telemetry Stripson 0 Telemetry Strips [id number] 20 [id number]#1.[address] [place] [address] .Auto Diff 1on 06-03-2019 Auto Terry % 10 % Normal 1-12 [facility] Comment on above: Performed By: #### 7 805359, [id number], [id number] ####[facility] (DEFAULT)[address] [place] [address] Baso Abs# 0.0 x10 Normal 0.0-0.2 [facility] Comment on above: Performed By: #### 7 842778, [id number], [id number] ####[facility] (DEFAULT)[address] [place] [address] Basophils/100 WBC (Bld) 0.3 % Normal 0.2-2.0 [facility] Comment on above: Performed By: #### 7 567787, [id number], [id number] ####[facility] (DEFAULT)[address] [place] [address] Eos Abs# 0.1 x10 Normal 0.0-0.4 [facility] Comment on above: Performed By: #### 7 725422, [id number], [id number] ####[facility] (DEFAULT)[address] [place] [address] Eosinophils/100 WBC (Bld) 0.5 % Low 0.9-4.0 [facility] Comment on above: Performed By: #### 7 122895, [id number], [id number] ####[facility] (DEFAULT)[address] [place] [address] Lymphocytes (Bld) [#/Vol] 2.1 x10 Normal 1.3-2.9 [facility] Comment on above: Performed By: #### 7 352378, 09952505, [id number] ####[facility] (DEFAULT)[address] [place] [address] Lymphocytes/100 WBC (Bld) 19 % Normal 14-48 [facility] Comment on above: Performed By: #### 7 762358, [id number], [id number] ####[facility] (DEFAULT)[address] [place] [address] Terry Abs# 1.1 x10 High 0.0-0.8 [facility] Comment on above: Performed By: #### 7 761804, [id number], [id number] ####[facility] (DEFAULT)[address] [place] [address] Neut Abs# 7.6 x10 Normal 1.5-9.2 [facility] Comment on above: Performed By: #### 7 930028, 97292075, [id number] ####[facility] (DEFAULT)[address] [place] [address] Neutrophils/100 WBC (Bld) 70 % Normal 44-88 [facility] Comment on above: Performed By: #### 7 602479, [id number], [id number] ####[facility] (DEFAULT)[address] [place] [address] CBC w/ Auto Diffon 02-19-202 0 Erythrocyte distribution width (RBC) [Ratio] 14.4 % Normal 11.5-15.0 [facility] Comment on above: Performed By: #### 7 758784, [id number], [id number] ####[facility] (DEFAULT)[address] [place] [address] Hematocrit (Bld) [Volume fraction] 36.6 % Normal 34.8-51.9 [facility] Comment on above: Performed By: #### 7 770100, 48343267, [id number] ####[facility] (DEFAULT)[address] [place] [address] Hemoglobin (Bld) [Mass/Vol] 12.2 g/dL Normal 11.8-17.7 [facility] Comment on above: Performed By: #### 7 863325, [id number], [id number] ####[facility] (DEFAULT)[address] [place] [address]70 Man Diff? Auto Normal [facility] Comment on above: Performed By: #### 7 526488, [id number], [id number] ####[facility] (DEFAULT)[address] [place] [address]262 MCH (RBC) [Entitic mass] 28 pg Normal 24-34 [facility] Comment on above: Performed By: #### 7 194893, 10082914, [id number] ####[facility] (DEFAULT)[address] [place] [address]177 MCHC (RBC) [Mass/Vol] 33 g/dL Normal 26-37 [facility] Comment on above: Performed By: #### 7 394969, [id number], [id number] ####[facility] (DEFAULT)[address] [place] [address]321 MCV (RBC) [Entitic vol] 85 fL Normal 81-100 [facility] Comment on above: Performed By: #### 7 097134, [id number], [id number] ####[facility] (DEFAULT)[address] [place] [address] 38120 Platelet mean volume (Bld) [Entitic vol] 8.9 fL Normal 6.3-10.2 [facility] Comment on above: Performed By: #### 7 666762, 91471179, [id number] ####[facility] (DEFAULT)[address] [place] [address] 40197 Platelets (Bld) [#/Vol] 144 x10 Normal 138-427 [facility] Comment on above: Performed By: #### 7 603181, 20097403, [id number] ####[facility] (DEFAULT)[address] [place] [address]6812 RBC (Bld) [#/Vol] 4.32 x10 Normal 3.70-5.30 [facility] Comment on above: Performed By: #### 7 223868, 11006980, [id number] ####[facility] (DEFAULT)[address] [place] [address] 53582 WBC (Bld) [#/Vol] 10.9 x10 [facility] Comment on above: Performed By: #### 7 145361, [id number], [id number] ####[facility] (DEFAULT)[address] [place] [address]656 Education Noteon 06-03-2019 Education Note Education Materials [...] with your health care provider about the pcoa-iwi-qwvnxad and prescription medicines that you are taking. [...] 04/01/2006 Document Revised: 02/24/2018 Document Reviewed: 02/24/2018 [employer] Interactive Patient Education ? 2019 ivWatch. Normal [facility] Electrolyte Panel Standardon 06-03-2019 Anion gap [Moles/Vol] 13.0 mmol/L Normal 5.0-19.0 [facility] Comment on above: Performed By: #### 7 503844, [id number], [id number] ####[facility] (DEFAULT)[address] [place] [address] 53271 Chloride [Moles/Vol] 106 mmol/L Normal 101-111 [facility] Comment on above: Performed By: #### 7 372312, [id number], [id number] ####[facility] (DEFAULT)[address] [place] [address] 83139 CO2 [Moles/Vol] 24 mmol/L Normal 21-32 [facility] Comment on above: Performed By: #### 7 585253, [id number], [id number] ####[facility] (DEFAULT)[address] [place] [address] 18888 Potassium [Moles/Vol] 4.2 mmol/L Normal 3.6-5.1 [facility] Comment on above: Performed By: #### 7 [id number], [id number], [id number] ####[facility] (DEFAULT)[address] [place] [address] Sodium [Moles/Vol] 139.0 mmol/L Normal 136.0-144.0 [facility] Comment on above: Performed By: #### 7 [id number], [id number], [id number] ####[facility] (DEFAULT)[address] [place] [address] Inpatient Patient Summaryon 06-03-2019 Inpatient Patient Summary [address] [address] Patient Discharge Instructions Name: RACHEL ACKERMAN : 1950 Patient Address: [address] [place] [address] Primary Care Provider: Name: Patrica Cruz DNP After you are discharged if you find you have any questions, please, call [phone] ext [phone] to speak to a nurse. Discharge Diagnosis: Primary osteoarthritis of right knee Prescription Information: If you have been given a prescription for narcotics, seek immediate medical attention if you have any difficulty breathing or any sudden status changes such as confusion and sleepiness. If you or anyone you know is experiencing suicidal thoughts, mental health, alcohol and/or drug addiction problems; contact the [facility] 05/11 Crisis Hotline -Text 4HCNC to 509624. If you received any narcotics, sedation, or [...] business decisions or sign any legal documents [facility] would like to thank you for allowing us to assist you with your healthcare needs. The following includes patient education materials and information regarding your injury/illness. RACHEL ACKERMAN has been given the following list of follow-up instructions, prescriptions, and patient education materials: Follow-up Instructions With: Address: When: Jordana Escamilla [address] [place] [address], [address] [place] [address] Business (2) 06/11/2019 9:00 AM With: Address: When: Patrica Cruz [address] [place], [place] [id number] Business (1) Medications During the course of [...] with your health care provider about the hivz-loo-rmairpq and prescription medicines that you are taking. [...] 04/01/2006 Document Revised: 02/24/2018 Document Reviewed: 02/24/2018 [employer] Interactive Patient Education ? 2019 [employer] Viruses or Bacteria What?s got you [...] for Disease Control and Prevention [facility]2019 [facility] Postoperative Record MAGR Phase II Record Summary Primary Physician: Jordana Escamilla DO Finalized Date/Time: 06/03/19 12:11:36 Pt. Name: RACHEL ACKERMAN./Sex: 1950 MALE Med Rec #: [id number] Physician: Jordana Escamilla DO Financial #: [id number] Pt. Type: I Room/Bed: [facility][note 3] Admit/Disch: 06/01/19 06:00:00 - Institution: Phase II [...] Signed By: Claudine Beck RN 06/03/19 12:11 [facility] Nutrition Noteon 06-03-2019 Nutrition Note Pt eating well, avg 100% of meals and supplements. No N/V. Labs reviewed. BM noted 06/02. No new rec'd at this time. Will continue to monitor. [facility] Pharmacy Noteon 06-03-2019 Pharmacy Note Delivered and collected hard copy at 12:00 PM. One prescription was paid for in marr [Electronically Signed on: 06/03/2019 16:06 EST] Anusha Valderrama [Verified on: 06/03/2019 16:06 EST] Anusha Valderrama Delivered at 2:16 PM correction [Electronically Signed on: 06/03/2019 16:07 EST] Anusha Valderrama [facility] Pharmacy Note Teach back on new medication completed. [Electronically Signed on: 06/03/2019 15:24 EST] Flavia Small [Verified on: 06/03/2019 15:24 EST] [facility] Pharmacy Note Patient is a 68 Year s yo MALE presenting with Diagnosis for this visit Unilateral primary osteoarthritis, right knee Counseled: Patient Family Member New Medications: Include the following:Percocet Counseling Points Discussed: Indications, side effects and compliance Handouts: Medication education materials, Personal Medication Record, and Meds to Beds information Assessment of patient/admitting representative 's response to counseling: 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 and verbalized understanding Patient/admitting representative found counseling beneficial Meds to Beds: Accepted and will make the notation in the patients record [Electronically Signed on: 06/03/2019 13:33 EST] Flavia Small [Verified on: 06/03/2019 13:33 EST] [facility] Pharmacy Note I have reviewed this patient's [...] Scheduled narcotic: none prn narcotic pain medication(s): [id number] - Moderate pain, 10mg - Severe pain prn non-narcotic pain medication(s): Acetaminophen- Mild pain, Vistaril and ketorolac Action: OARRS and risk factors reviewed [Electronically Signed on: 06/03/2019 08:37 EST] Tania Grimes PharmD [Verified on: 06/03/2019 08:37 EST] Tania Grimes PharmD [facility] Progress Note-Physicianon Progress Note-Physician DATE OF ORTHOPEDIC [...] DISCHARGE: Stable. Van Irby DO JOB #: [id number] [Electronically Signed on: 06/04/2019 08:18 EST] VAN IRBY DO [Verified on: 06/04/2019 08:18 EST] VAN IRBY DO [Transcribed on: 06/03/2019 12:39 EST] [facility] Progress Note-Physician DATE OF ORTHOPEDIC POSTOPERATIVE [...] PROGNOSIS: Good. Van Irby DO JOB #: [id number] [Electronically Signed on: 06/03/2019 11:46 EST] VAN IRBY DO [Verified on: 06/03/2019 11:46 EST] VAN IRBY DO [Transcribed on: 06/03/2019 06:10 EST] [facility] Normal [facility] .Auto Diff 1on 06-02-2019 Auto Terry % 9 % Normal 1-12 [facility] Comment on above: Performed By: #### 7 [id number], [id number], [id number] ####[facility] (DEFAULT)[address] [place] [address] Baso Abs# 0.0 x10 Normal 0.0-0.2 [facility] Comment on above: Performed By: #### 7 [id number], [id number], [id number] ####[facility] (DEFAULT)[address] [place] [address] Basophils/100 WBC (Bld) 0.1 % Low 0.2-2.0 [facility] Comment on above: Performed By: #### 7 [id number], [id number], [id number] ####[facility] (DEFAULT)[address] [place] [address] Eos Abs# 0.0 x10 Normal 0.0-0.4 [facility] Comment on above: Performed By: #### 7 [id number], [id number], [id number] ####[facility] (DEFAULT)[address] [place] [address] Eosinophils/100 WBC (Bld) 0.2 % Low 0.9-4.0 [facility] Comment on above: Performed By: #### 7 [id number], [id number], [id number] ####[facility] (DEFAULT)[address] [place] [address] Lymphocytes (Bld) [#/Vol] 2.0 x10 Normal 1.3-2.9 [facility] Comment on above: Performed By: #### 7 [id number], [id number], [id number] ####[facility] (DEFAULT)[address] [place] [address] Lymphocytes/100 WBC (Bld) 19 % Normal 14-48 [facility] Comment on above: Performed By: #### 7 [id number], [id number], [id number] ####[facility] (DEFAULT)[address] [place] [address] Terry Abs# 1.0 x10 High 0.0-0.8 [facility] Comment on above: Performed By: #### 7 [id number], [id number], [id number] ####[facility] (DEFAULT)[address] [place] [address] Neut Abs# 7.8 x10 Normal 1.5-9.2 [facility] Comment on above: Performed By: #### 7 605894, [id number], [id number] ####[facility] (DEFAULT)[address] [place] [address] Neutrophils/100 WBC (Bld) 72 % Normal 44-88 [facility] Comment on above: Performed By: #### 7 [id number], [id number], [id number] ####[facility] (DEFAULT)[address] [place] [address] CBC w/ Auto Diffon 0 Erythrocyte distribution width (RBC) [Ratio] 14.1 % Normal 11.5-15.0 [facility] Comment on above: Performed By: #### 7 432017, [id number], [id number] ####[facility] (DEFAULT)[address] [place] [address] Hematocrit (Bld) [Volume fraction] 33.5 % Low 34.8-51.9 [facility] Comment on above: Performed By: #### 7 135280, [id number], [id number] ####[facility] (DEFAULT)[address] [place] [address] Hemoglobin (Bld) [Mass/Vol] 11.4 g/dL Low 11.8-17.7 [facility] Comment on above: Performed By: #### 7 118841, [id number], [id number] ####[facility] (DEFAULT)[address] [place] [address] Man Diff? Auto Normal [facility] Comment on above: Performed By: #### 7 [id number], [id number], [id number] ####[facility] (DEFAULT)[address] [place] [address] MCH (RBC) [Entitic mass] 29 pg Normal 24-34 [facility] Comment on above: Performed By: #### 7 613587, [id number], [id number] ####[facility] (DEFAULT)[address] [place] [address] MCHC (RBC) [Mass/Vol] 34 g/dL Normal 26-37 [facility] Comment on above: Performed By: #### 7 219567, [id number], [id number] ####[facility] (DEFAULT)[address] [place] [address] MCV (RBC) [Entitic vol] 84 fL Normal 81-100 [facility] Comment on above: Performed By: #### 7 896438, [id number], [id number] ####[facility] (DEFAULT)[address] [place] [address] Platelet mean volume (Bld) [Entitic vol] 8.9 fL Normal 6.3-10.2 [facility] Comment on above: Performed By: #### 7 885935, [id number], [id number] ####[facility] (DEFAULT)[address] [place] [address] Platelets (Bld) [#/Vol] 133 x10 Low 138-427 [facility] Comment on above: Performed By: #### 7 299103, [id number], [id number] ####[facility] (DEFAULT)[address] [place] [address] RBC (Bld) [#/Vol] 3.99 x10 Normal 3.70-5.30 [facility] Comment on above: Performed By: #### 7 245423, [id number], [id number] ####[facility] (DEFAULT)[address] [place] [address]30 WBC (Bld) [#/Vol] 10.9 x10 [facility] Comment on above: Performed By: #### 7 916297, [id number], [id number] ####[facility] (DEFAULT)[address] [place] [address] Electrolyte Panel Standardon 06-02-2019 Anion gap [Moles/Vol] 13.0 mmol/L Normal 5.0-19.0 [facility] Comment on above: Performed By: #### 7 650929, [id number], [id number] ####[facility] (DEFAULT)[address] [place] [address] Chloride [Moles/Vol] 103 mmol/L Normal 101-111 [facility] Comment on above: Performed By: #### 7 249237, [id number], [id number] ####[facility] (DEFAULT)[address] [place] [address]20 CO2 [Moles/Vol] 23 mmol/L Normal 21-32 [facility] Comment on above: Performed By: #### 7 543356, [id number], [id number] ####[facility] (DEFAULT)[address] [place] [address] Potassium [Moles/Vol] 3.9 mmol/L Normal 3.6-5.1 [facility] Comment on above: Performed By: #### 7 285064, [id number], [id number] ####[facility] (DEFAULT)[address] [place] [address]258 Sodium [Moles/Vol] 135.0 mmol/L Low 136.0-144.0 [facility] Comment on above: Performed By: #### 7 385395, [id number], [id number] ####[facility] (DEFAULT)[address] [place] [address] Progress Note - Nurseon 05-16 Progress Note [...] 06/02/2019 16:39 EST] Kinza London RN Normal [facility] Anesthesia Noteon 06-01-2019 Anesthesia Note Patient: RACHEL [...] history): All Problems Alcoholism / SNOMED CT 82310588 / Confirmed Anxiety / SNOMED CT 95531660 / Confirmed Asthma / SNOMED CT 715032125 / Confirmed Depression / SNOMED CT 97287469 / Confirmed Former smoker / SNOMED CT 41916577 / Confirmed Hyperlipidemia / SNOMED CT 40346347 / Confirmed Skin cancer / SNOMED CT 4527828046 / Confirmed Sleep apnea / SNOMED CT 15927989 / Confirmed Histories Family History: Heart attack Father Mother Hypertension Mother Procedure history: Tonsillectomy (618435970). Arthroscopy (58303775). Comments: 05/27/2019 14:07 Saskia Lim RN Right knee 05/27/2019 12:37 Claudine Esteban RN meniscectomy Colonoscopy (896501204). Palate operation (104297311). Comments: 05/27/2019 14:08 Saskia Lim RN Removal of for sleep apnea Maxillary sinus (48914058). Extraction of cataract by phacofragmentation with aspiration (6377109986). Comments: 05/27/2019 14:19 Saskia Lim RN bilateral [...] 06:25) Review / Management Laboratory Results Plan [place] [employer]esthesi[employer]#(ASA ) physical status classification: Class III. Anesthetic Preoperative Plan Anesthesia: General. , Regional adductor canal block. Anesthetic plan, risks, benefits, and alternatives discussed with the patient and/or family. Patient verbalized understanding. Anesthetic technique: discussed SAB vs GA. pt prefers GA. [Electronically Signed on: 06/01/2019 09:29 EST] Jonathon Ely MD [Verified on: 06/01/2019 09:29 EST] Jonathon Ely MD [facility] History and Physicalon 06-01 History and Physical [id number]. [id number] [facility] MAGR Intraoperative Recordon 06-01-2019 MAGR Intraoperative Record MAGR Intra-Op Record Summary Primary Physician: Jordana Escamilla DO Finalized Date/Time: 06/01/19 09:57:13 Pt. Name: ELAINERACHEL/Sex: 1950 MALE Med Rec #: [id number] Physician: Jordana Escamilla DO Financial #: [id number] Pt. Type: I Room/Bed: [facility][note 3] Admit/Disch: 06/01/19 06:00:00 - Institution: Case Times [...] Role Performed Surgeon - Primary Anesthesiologist of Corrugator Operator Record Time In 06/01/19 07:36:00 06/01/19 07:36:00 06/01/19 07:36:00 Time Out 06/01/19 09:46:00 06/01/19 09:46:00 06/01/19 09:46:00 Procedure Arthroplasty Knee Arthroplasty Knee Arthroplasty Knee Total(Right) Total(Right) Total(Right) Last Modified By: Sergio HALL, Sandee Hill RN, Sandee Sutherland RN 06/01/19 09:55:49 06/01/19 09:55:49 06/01/19 09:55:49 Entry 4 Entry 5 Entry 6 Case Attendee Patrica Raymond RN, Stephanie RN Wilkins CST, Rachel Role Performed Line Installation Supervisor Scrub Personnel Scrub Personnel Time In 06/01/19 [...] Primary Procedure Yes Primary Surgeon Jordana Escamilla Modifiers Right Remi DO Surgeon Comment RIGHT TOTAL [...] DIAMETER; 35MM 27MM LENGTH 48MM LENGTH LENGTH Cardiovascular Radiologic Technologist BRITTANY BRITTANY BRITTANY Catalog # Lot Number [id number] Expiration Date 02/12/29 11/12/28 Serial Number Device Identifier Human Readable RAJNI Machine Readable RAJNI MR Class Implant Usage Data Site Knee R Knee R Knee R Quantity 2 1 1 Reason for Explant Reason Not Retained Explant Disposition Care Specialist Sterility External Indicator Result Internal Indicator Results [...] 06/01/19 08:54:00 Date/Time Implanted/Explanted Jordana Escamilla James Huddleston, James By: Remi Mejias DO Remi DO Size RIGHT SIZE 9 RIGHT 10MM HEIGHT USE 35MM DIAMETER; 9.0MM WITH TIBIA SIZES E-F/CR THICKNESS FEMUR SIZES 8- Cardiovascular Radiologic Technologist BRITTANY BRITTANY BRITTANY Catalog # Lot Number [id number] Expiration Date 05/15/27 12/14/23 02/12/27 Serial Number Device Identifier Human Readable RAJNI Machine Readable RAJNI MR Class Implant Usage Data Site Knee R Knee R Knee R Quantity 1 1 1 Reason for Explant Reason Not Retained Explant Disposition Care Specialist Sterility External Indicator Result Internal Indicator Results [...] Size 5 DEGREE STEMMED RIGHT SIZE E Cardiovascular Radiologic Technologist BRITTANY BIOMENT BIOMENT Catalog # Lot Number [id number] Expiration Date 02/12/29 06/13/23 03/14/23 Serial Number Device Identifier Human Readable RAJNI Machine Readable RAJNI MR Class Implant Usage Data Site Knee R Knee R Knee R Quantity 1 1 1 Reason for Explant Reason Not Retained Explant Disposition Care Specialist Sterility External Indicator Result Internal Indicator Results Outcome Met (O.30) Yes Yes Yes Last Modified By: Sandee Hill RN, RN, Sandee Sutherland RN 06/01/19 08:57:03 06/01/19 [...] Signed By: Sandee Hill RN 06/01/19 09:57 [facility] MAGR PACU Record [facility] PACU Record Summary Primary Physician: Jordana Escamilla DO Finalized Date/Time: 06/01/19 10:34:41 Pt. Name: MARY ANNSOTERORACHEL/Sex: 1950 MALE Med Rec #: [id number] Physician: Jordana Escamilla DO Financial #: [id number] Pt. Type: I Room/Bed: 232/1 Admit/Disch: 06/01/19 06:00:00 - Institution: PACU Case Times MAGR Entry 1 In PACU I 06/01/19 09:48:00 Discharge from PACU 06/01/19 10:40:00 I Last Modified By: Rani Howard RN 06/01/19 10:34:33 Finalized By: Rani Howard RN Document Signatures Signed By: Rani Howard RN 06/01/19 10:34 [facility] 0 06-01-2019 MAGR Preoperative Record MAGR Pre-Op Record Summary Primary Physician: Jordana Escamilla DO Finalized Date/Time: 06/01/19 07:51:20 Pt. Name: ELAINE RACHEL Solitario/Sex: 1950 MALE Med Rec #: [id number] Physician: Jordana Escamilla DO Financial #: [id number] Pt. Type: I Room/Bed: / Admit/Disch: 06/01/19 [...] consent correct. General Comments: Pt arrives to w ambulatory. PT denies pain, cp, sob, cough or flu like symptoms. PT denies pacemaker/defibillator pt has sleep apnea and wears a cpap. Finalized By: Anila Victoria RN Document Signatures Signed By: Anila Victoria RN 06/01/19 07:51 [facility] Nutrition Noteon 06-01-2019 Nutrition Note Chart reviewed; [...] for any changes; follow, assist prn ts [facility] Operative Report - Surgeon/P aileen 06-01-2019 Operative [...] on: 06/01/2019 14:01 EST] Jordana Escamilla DO [facility] Patient Handouton 06-01-2019 Patient Handout Orthopedics Knee [...] with your health care provider about the ltca-oyq-oufbtej and prescription medicines that you are taking. [...] 04/01/2006 Document Revised: 02/24/2018 Document Reviewed: 02/24/2018 [employer] Interactive Patient Education ? 2019 [employer] [facility] XR Knee One or Two Views Rig [facility] 06-01-2019 XR Knee One or Two Views [...] Rosas MD 06/01/19 12:57 p Technologist: NIKITA [facility] Progress Note - Nurseon 05-16 Progress Note - Nurse Spoke with pt and informed him to be here at 6am and NPO after MN. He verbalizes understanding. [Electronically Signed on: 05/29/2019 09:26 EST] Claudine Beck RN [Verified on: 05/29/2019 09:26 EST] Claudine Beck RN [facility] Vital Signs Date Time Vital Sign Value Performing Clinician Facility 01-24-2024 11:24040 Body height 177.8 cm [facility] 01-24-2024 11:240400 Body mass index (BMI) [Ratio] 35.2 kg/m2 [facility] 01-24-2024 11:24040 Body weight 111.18 kg [facility] 01-24-2024 11:24-0400 Diastolic blood pressure 80 mm[Hg] [facility] 01-24-2024 11:24-0400 Heart rate 80 /min [facility] 01-24-2024 11:240400 Respiratory rate 18 /min [facility] 01-24-2024 11:24-0400 SaO2% (BldA) [Mass fraction] 97 % [facility] 01-24-2024 11:24-0400 Systolic blood pressure 130 mm[Hg] [facility] 10-14-2023 12:06-0400 Blood Pressure Location Elia HUERTA [facility] 10-14-2023 12:06-0400 Body temperature 98.6 [degF] Eliamicheal HUERTA [facility] 10-14-2023 12:06-0400 Diastolic blood pressure 78 mm[Hg] Eliamicheal HUERTA [facility] 10-14-2023 12:06-0400 Heart rate 68 /min Eliamicheal HUERTA [facility] 10-14-2023 12:06-0400 Respiratory rate 16 /min Elia HUERTA [facility] 10-14-2023 12:06-0400 Systolic blood pressure 129 mm[Hg] Elia HUERTA [facility] 08-13-2023 09:01-0400 Blood Pressure Location Haydee Orzech [facility] 08-13-2023 09:01-0400 Body temperature 97.88 [degF] Haydee Orzech [facility] 08-13-2023 09:01-0400 Diastolic blood pressure 80 mm[Hg] Haydee Orzech [facility] 08-13-2023 09:01-0400 Heart rate 73 /min Haydee Orzech [facility] 08-13-2023 09:01-0400 Respiratory rate 20 /min Haydee Orzech [facility] 08-13-2023 09:01-0400 Systolic blood pressure 150 mm[Hg] Haydee Camilo [facility] 07-08-2023 10:03-0400 Body height 177.8 cm DNP Patrica Luquele Work Phone: [facility] 07-08-2023 10:03-0400 Body mass index (BMI) [Ratio] 35.3 kg/m2 DNP Patrica Kaple Work Phone: [facility] 07-08-2023 10:03-0400 Body weight 111.78 kg DNP Patrica Kaple Work Phone: [facility] 07-08-2023 10:03-0400 Diastolic blood pressure 78 mm[Hg] DNP Patrica Kaple Work Phone: [facility] 07-08-2023 10:03-0400 Heart rate 65 /min DNP Patrica Kaple Work Phone: [facility] 07-08-2023 10:03-0400 SaO2% (BldA) [Mass fraction] 97 % DNP Patrica Kaple Work Phone: [facility] 07-08-2023 10:03-0400 Systolic blood pressure 126 mm[Hg] DNP Patrica Kaple Work Phone: [facility] 05-06-2023 10:25-0500 Blood Pressure Location Elia HUERTA [facility] 05-06-2023 10:25-0500 Diastolic blood pressure 86 mm[Hg] Elia HUERTA [facility] 05-06-2023 10:25-0500 Heart rate 75 /min Elia HUERTA [facility] 05-06-2023 10:25-0500 Respiratory rate 16 /min Elia HUERTA [facility] 05-06-2023 10:25-0500 Systolic blood pressure 135 mm[Hg] Elia HUERTA [facility] 04-16-2023 07:15-0500 Body height 177.8 cm Patrica Cruz Other [facility] 04-16-2023 07:15-0500 Body mass index (BMI) [Ratio] 35.28 kg/m2 Patrica Cruz Other [facility] [employer] Other 04-16-2023 07:15-0500 Body weight 111.54 kg Patrica Cruz Other [facility] [employer] Other 04-16-2023 07:15-0500 Body weight 111.53 kg DNP Patrica Cruz Work Phone: [facility] 04-16-2023 07:15-0500 Diastolic blood pressure 70 mm[Hg] Patrica Cruz Other [facility] 04-16-2023 07:15-0500 Respiratory rate 18 /min Patrica Cruz Other [facility] Other 04-16-2023 07:15-0500 SaO2% (BldA) [Mass fraction] 97 % Patrica Cruz Other [facility] [employer] Other 04-16-2023 07:15-0500 Systolic blood pressure 138 mm[Hg] Patrica Cruz Other [facility] 04-01-2023 10:00-0500 Body height 177.8 cm Patrica Cruz Other [facility] Other 04-01-2023 10:00-0500 Body mass index (BMI) [Ratio] 35.15 kg/m2 Patrica Anthony Other [facility] Other 04-01-2023 10:00-0500 Body weight 111.13 kg Patrica Cruz Other [facility] Other 04-01-2023 10:00-0500 Diastolic blood pressure 78 mm[Hg] Patrica Cruz Other [facility] Other 04-01-2023 10:00-0500 Respiratory rate 18 /min Patrica Cruz Other [facility] Other 04-01-2023 10:00-0500 SaO2% (BldA) [Mass fraction] 94 % Patrica Cruz Other [facility] Other 04-01-2023 10:00-0500 Systolic blood pressure 140 mm[Hg] Patrica Cruz Other [facility] Other 03-19-2023 09:15-0500 Body height 177.8 cm Patrica Cruz Other [facility] Other 03-19-2023 09:15-0500 Body mass index (BMI) [Ratio] 34.43 kg/m2 Patrica Cruz Other [facility] Other 03-19-2023 09:15-0500 Body temperature 97.5 [degF] Patrica Cruz Other [facility] Other 03-19-2023 09:15-0500 Body weight 108.86 kg Patrica Anthony Other [facility] Other 03-19-2023 09:15-0500 Diastolic blood pressure 78 mm[Hg] Patrica Anthony Other [facility] Other 03-19-2023 09:15-0500 Respiratory rate 18 /min Patrica Cruz Other [facility] Other 03-19-2023 09:15-0500 SaO2% (BldA) [Mass fraction] 97 % Patrica Cruz Other [facility] Other 03-19-2023 09:15-0500 Systolic blood pressure 120 mm[Hg] Patrica Cruz Other [facility] Other 02-20-2023 10:35-0500 Body height 177.8 cm Kesha Clifton MD Work Phone: [facility] 02-20-2023 10:35-0500 Body temperature 97.7 [degF] Kesha Clifton MD Work Phone: [facility] 02-20-2023 10:35-0500 Body weight 114.85 kg Kesha Clifton MD Work Phone: [facility] 02-20-2023 10:35-0500 Diastolic blood pressure 74 mm[Hg] Kesha Clifton MD Work Phone: [facility] 02-20-2023 10:35-0500 Heart rate 65 /min Kesha Clifton MD Work Phone: [facility] 02-20-2023 10:35-0500 Respiratory rate 16 /min Kesha Clifton MD Work Phone: [facility] 02-20-2023 10:35-0500 SaO2% (BldA) [Mass fraction] 96 % Kesha Clifton MD Work Phone: [facility] 02-20-2023 10:35-0500 Systolic blood pressure 130 mm[Hg] Kesha Clifton MD Work Phone: [facility] 11-12-2022 12:16-0400 Blood Pressure Location Elia HUERTA [facility] 11-12-2022 12:16-0400 Diastolic blood pressure 86 mm[Hg] Elia HUERTA [facility] 11-12-2022 12:16-0400 Heart rate 79 /min Elia HUERTA [facility] 11-12-2022 12:16-0400 Respiratory rate 16 /min Elia HUERTA [facility] 11-12-2022 12:16-0400 Systolic blood pressure 142 mm[Hg] Elia HUERTA [facility] 09-27-2022 09:00-0400 Body height 177.8 cm Patrica Cruz Other [facility] Other 09-27-2022 09:00-0400 Body mass index (BMI) [Ratio] 36.15 kg/m2 Patrica Cruz Other [facility] Other 09-27-2022 09:00-0400 Body temperature 98.1 [degF] Patrica Cruz Other [facility] Other 09-27-2022 09:00-0400 Body weight 114.31 kg Patrica Cruz Other [facility] Other 09-27-2022 09:00-0400 Diastolic blood pressure 76 mm[Hg] Patrica Anthony Other [facility] Other 09-27-2022 09:00-0400 SaO2% (BldA) [Mass fraction] 97 % Patrica Anthony Other [facility] Other 09-27-2022 09:00-0400 Systolic blood pressure 128 mm[Hg] Patrica Anthony Other [facility] Other 02-26-2022 11:00-0500 Body height 177.8 cm Patrica Anthony Other [facility] Other 02-26-2022 11:00-0500 Body mass index (BMI) [Ratio] 35.88 kg/m2 Patrica Anthony Other [facility] Other 02-26-2022 11:00-0500 Body temperature 96.7 [degF] Patrica Cruz Other [facility] Other 02-26-2022 11:00-0500 Body weight 113.45 kg Patrica Cruz Other [facility] Other 02-26-2022 11:00-0500 Diastolic blood pressure 70 mm[Hg] Patrica Cruz Other [facility] Other 02-26-2022 11:00-0500 Respiratory rate 18 /min Patrica Cruz Other [facility] Other 02-26-2022 11:00-0500 SaO2% (BldA) [Mass fraction] 98 % Patrica Cruz Other [facility] Other 02-26-2022 11:00-0500 Systolic blood pressure 128 mm[Hg] Patrica Cruz Other [facility] Other 09-05-2021 10:54-0400 Blood Pressure Location Will Rivera Jr. [facility] 09-05-2021 10:54-0400 Diastolic blood pressure 82 mm[Hg] Will Rivera Jr. [facility] 09-05-2021 10:54-0400 Heart rate 71 /min Will Rivera Jr. [facility] 09-05-2021 10:54-0400 Respiratory rate 16 /min Will Rivera Jr. [facility] 09-05-2021 10:54-0400 Systolic blood pressure 137 mm[Hg] Will Rivera Jr. [facility] 08-24-2021 11:00-0400 Body height 177.8 cm Patrica Cruz Other [facility] Other 08-24-2021 11:00-0400 Body mass index (BMI) [Ratio] 36.21 kg/m2 Patrica Cruz Other [facility] Other 08-24-2021 11:00-0400 Body weight 114.49 kg Patrica Cruz Other [facility] Other 08-24-2021 11:00-0400 Diastolic blood pressure 82 mm[Hg] Patrica Cruz Other [facility] Other 08-24-2021 11:00-0400 Respiratory rate 18 /min Patrica Cruz Other [facility] Other 08-24-2021 11:00-0400 SaO2% (BldA) [Mass fraction] 96 % Patrica Cruz Other [facility] Other 08-24-2021 11:00-0400 Systolic blood pressure 122 mm[Hg] Patrica Cruz Other [facility] Other 02-22-2021 11:00-0500 Body height 177.8 cm Patrica Cruz Other [facility] Other 02-22-2021 11:00-0500 Body mass index (BMI) [Ratio] 36.07 kg/m2 Patrica Cruz Other [facility] Other 02-22-2021 11:00-0500 Body temperature 97.4 [degF] Patrica Cruz Other [facility] Other 02-22-2021 11:00-0500 Body weight 114.04 kg Patrica Cruz Other [facility] Other 02-22-2021 11:00-0500 Diastolic blood pressure 80 mm[Hg] Patrica Cruz Other [facility] Other 02-22-2021 11:00-0500 Respiratory rate 18 /min Patrica Cruz Other [facility] Other 02-22-2021 11:00-0500 SaO2% (BldA) [Mass fraction] 97 % Patrica Cruz Other [facility] Other 02-22-2021 11:00-0500 Systolic blood pressure 130 mm[Hg] Patrica Cruz Other [facility] Other Encounters Encounter Date Encounter Type Care Provider Facility Start: 04-20-2024 ambulatory Elia HUERTA Facili ty:[facility] Start: 01-24-2024 End: 01-24-2024 ambulatory [facility] Work Phone: Start: 01-24-2024 End: 01-24-2024 Patient encounter procedure [facility] [place] Work Phone: Start: 10-14-2023 End: 10-14-2023 ambulatory Elia HUERTA [facility] Start: 10-14-2023 End: 10-14-2023 Lab Drop off Elia HUERTA [facility] Start: 10-14-2023 End: 10-14-2023 ambulatory Elia HUERTA Facility:[facility] [place] Start: 10-14-2023 End: 10-14-2023 Patient encounter procedure Elia HUERTA [facility] [place] Start: 08-16-2023 End: 08-16-2023 ambulatory MARIA FERNANDA Matthew ONESIMO Not Available Start: 08-13-2023 End: 08-13-2023 ambulatory Haydee X Orzech Facility:[facility] [place] Start: 08-13-2023 End: 08-13-2023 Patient encounter procedure Haydee X Orzech [facility] [place] Start: 07-08-2023 End: 07-08-2023 ambulatory DNP Patrica Cruz Work Phone: [facility] Work Phone: Start: 07-08-2023 End: 07-08-2023 Patient encounter procedure DNP Patrica Cruz Work Phone: [facility] [place] Work Phone: Start: 06-04-2023 End: 06-05-2023 ambulatory JORDANA ESCAMILLA Not Available Start: 05-06-2023 End: 05-06-2023 ambulatory Elia HUERTA Facility:[facility] [place] Start: 05-06-2023 End: 05-06-2023 Patient encounter procedure Elia HUERTA [facility] [place] Start: 04-22-2023 End: 04-22-2023 ambulatory Elia HUERTA Facility:[facility] Start: 04-22-2023 End: 04-22-2023 Patient encounter procedure Elia HUERTA [facility] [place] Start: 04-18-2023 End: 04-18-2023 ambulatory Elia HUERTA Facility:[id number] Start: 04-16-2023 End: 04-16-2023 ambulatory Patrica Cruz Other [facility] Other Start: 04-16-2023 Encounter for other preprocedural examination Patrica Cruz [facility] [place] Start: 04-16-2023 Office outpatient vi sit 25 minutes Patrica Cruz [facility] Start: 04-16-2023 End: 04-16-2023 Patient encounter procedure DNP Patrica Cruz Work Phone: [facility] [place] Work Phone: Start: 04-13-2023 End: 04-13-2023 ambulatory Patrica Anthony Facility:[facility] Start: 04-13-2023 End: 04-13-2023 ambulatory DNP Patrica Cruz Work Phone: [facility] Work Phone: Start: 04-13-2023 End: 04-13-2023 Patient encounter procedure DNP Patrica Cruz Work Phone: [facility] [place] Work Phone: Start: 04-09-2023 End: 04-09-2023 ambulatory Patrica Anthony Other [facility] Other Start: 04-09-2023 Encounter for other preprocedural examination Patrica Cruz [facility] [place] Start: 04-09-2023 Telephone encounter Patriac Cruz [facility] Start: 04-02-2023 End: 04-02-2023 ambulatory Patrica Cruz Other [facility] Other Start: 04-02-2023 Telephone encounter Patrica Cruz [facility] Start: 04-01-2023 End: 04-01-2023 ambulatory Patrica Cruz Other [facility] Other Start: 04-01-2023 Office outpatient vi sit 25 minutes Patrica Cruz [facility] Start: 03-19-2023 End: 03-19-2023 ambulatory Patrica Cruz Other [facility] Other Start: 03-19-2023 Office outpatient vi sit 25 minutes Patrica Cruz [facility] [place] Start: 03-18-2023 End: 03-18-2023 ambulatory Patrica Cruz Other [facility] Other Start: 03-18-2023 Telephone encounter Patrica Guzman [facility] [place] Start: 03-05-2023 End: 03-05-2023 ambulatory Patrica Cruz Other [facility] Other Start: 03-05-2023 Telephone encounter Patrica Guzman [facility] [place] Start: 03-01-2023 ambulatory Elia Oh ty:[facility] Start: 02-20-2023 End: 02-20-2023 ambulatory KESHA CLIFTON Facility:[facility] Start: 02-20-2023 End: 02-20-2023 ambulatory Kesha Clifton MD Work Phone: Hematology/Oncology Comment on above: Thrombocytopenia (HC C) (Primary Dx); Platelets decreased (HCC) Start: 02-20-2023 End: 02-20-2023 Patient encounter procedure Kesha Clifton MD Work Phone: [facility] Start: 02-11-2023 ambulatory Elia Oh ty:[facility] Start: 01-28-2023 Telephone encounter Crystal Cooley RN Hematology/Oncology Comment on above: Patient Update Start: 01-23-2023 End: 01-23-2023 ambulatory KESHA DIAZMendel Facility:[facility] Start: 01-22-2023 Chart abstracting Kesha sierra MD Work Phone: Hematology/Oncology Start: 12-25-2022 End: 12-25-2022 ambulatory Elia HUERTA Facility[facility] Start: 12-25-2022 End: 12-25-2022 Patient encounter procedure Elia HUERTA [facility] Start: 11-12-2022 End: 11-12-2022 ambulatory Elia HUERTA Facility:[facility] Start: 11-12-2022 End: 11-12-2022 Patient encounter procedure Elia Cardona DEANNA [facility] [place] Start: 11-07-2022 End: 11-07-2022 ambulatory Genaro Sheldon Facility:[facility] Start: 11-07-2022 End: 11-07-2022 ambulatory DNP Patrica Anthony Work Phone: [facility] Work Phone: Start: 11-07-2022 End: 11-07-2022 Patient encounter procedure DNP Ptarica Cruz Work Phone: [facility] Work Phone: Start: 10-08-2022 End: 10-08-2022 ambulatory Patrica Cruz Other [facility] Other Start: 10-08-2022 Telephone encounter Patrica Cruz [facility] Start: 09-27-2022 End: 09-27-2022 ambulatory Patrica Cruz Other [facility] Other Start: 09-27-2022 Patient encounter procedure Patrica Cruz [facility] Start: 02-26-2022 End: 02-26-2022 ambulatory Patrica Cruz Other [facility] Other Start: 02-26-2022 Office outpatient vi sit 25 minutes Patrica Cruz [facility] Start: 12-26-2021 End: 12-26-2021 ambulatory Patrica Cruz Other [facility] Other Start: 12-26-2021 Telephone encounter Patrica Cruz [facility] Start: 09-05-2021 End: 09-05-2021 Patient encounter procedure Will Rivera Jr. [facility] Start: 08-24-2021 End: 08-24-2021 ambulatory Patrica Cruz Other [facility] Other Start: 08-24-2021 Patient encounter procedure Patrica Cruz [facility] Start: 02-22-2021 End: 02-22-2021 ambulatory Patrica Cruz Other [facility] Other Start: 02-22-2021 Office outpatient vi sit 25 minutes Patrica Cruz [facility] Start: 09-22-2020 ambulatory PATRICA CRUZ [...] above: Performed By: #### P SAD #### [facility] [address] [place] [address] Martha Yancey Start: 02-13-2017 Nasal sinus procedure D matti Rivera Jr. Start: 08-13-2016 Excision of basal ce ll carcinoma Will Miguel Martinez Start: 02-14-2016 Cataract surgery Will Miguel Martinez Start: 04-15-2015 Colonoscopy Will Regina viveros Jr. Start: 06-13-2014 Arthroscopy of knee Eligio stanley Miguel Martinez Start: 04-15-1999 Pharyngeal operation for obstructive sleep apnea and snoring Will Miguel Martinez Tonsillectomy Will Miguel adler Plan of Treatment Date Care Activity Detail Author Start: 01-23-2026 Diabetes Screening Diabetes Screening [facility] Start: 07-08-2023 Patient referral [facility] Work Phone: Start: 12-14-2022 Covid-19 Vaccine () Covid-19 Vaccine () [facility] Start: 12-14-2022 Influenza vaccination Influenza Vaccine (#1) [facility] Start: 04-15-2022 Advance Directive Discussion Advance Directive Discussion [facility] Start: 04-15-2022 Depression Assessment Depression Assessment [facility] Start: 10-20-2018 Urine microalbumin profile DTaP,Tdap,Td Vaccine (1 - Tdap) [facility] Start: 11-20-2015 Pneumococcal Vaccine: 65+ (1 - PCV) Pneumococcal Vaccine: 65+ (1 - PCV) [facility] Start: 2010 RSV Vaccine (1 - 1-dose 60+ series) RSV Vaccine (1 - 1-dose 60+ series) [facility] Start: 2000 Shingrix Vaccine (1 of 2) Shingrix Vaccine (1 of 2) [facility] Start: 11-20-1995 Cologuard (FIT-DNA) Cologuard (FIT-DNA) [facility] Start: 11-20-1995 Colonoscopy Colonoscopy [facility] Start: 11-20-1995 Colorectal Cancer Screening Colorectal Cancer Screening [facility] Start: 11-20-[address] COLONOGRAPHY [facility] Start: 11-20-1995 Diabetes Screening Diabetes Screening [facility] Start: 11-20-1995 Fecal Occult Blood Fecal Occult Blood [facility] Start: 11-20-1995 SIGMOIDOSCOPY SIGMOIDOSCOPY [facility] Start: 1985 Lipid 1996 panel - Serum or Plasma Lipid Screening [facility] Start: 1969 Urine microalbumin profile DTaP,Tdap,Td Vaccine (1 - Tdap) [facility] Start: 1968 Hepatitis C Screening Hepatitis C Screening [facility] Start: [birth year]-22-1951 Covid-19 Vaccine (#1) Covid-19 Vaccine (#1) [facility] Start: 1950 Abdominal Aortic Aneurysm Screening Abdominal Aortic Aneurysm Screening [facility] Patient referral [facility] Work Phone: [facility] Immunizations Immunization Date Immunization Notes Care Provider Giuliano [facility] 02-26-2022 influenza, high dose seasonal, preservative-free Patrica Cruz Other [facility] 02-26-2022 influenza virus vacc ine, unspecified formulation Crystal Cooley RN [facility] 04-16-2021 COVID-19 Vaccine Pfi zer - Documentation Purposes Only Patrica Cruz Other [facility] 03-23-2020 influenza (HD-IIV4) vaccine, age 65+ yr, high dose, quadrivalent, PF (FLUZONE HIGH-DOSE) Crystal Cooley RN [facility] 03-23-2020 influenza virus vacc ine, unspecified formulation GUICHO Cruz Work Phone: [facility] 03-23-2020 influenza, high dose seasonal, preservative-free Patrica Cruz Other [facility] 03-23-2020 pneumococcal polysaccharide vaccine, 23 valent Patrica Cruz Other [facility] 03-09-2019 influenza virus vacc ine, unspecified formulation GUICHO Cruz Work Phone: [facility] 03-09-2019 pneumococcal conjuga te vaccine, 13 valent Patrica Cruz Other [facility] 03-09-2019 influenza, high dose seasonal, preservative-free Patrica Cruz Other [facility] 10-19-2018 tetanus and diphther ia toxoids, adsorbed, preservative free, for adult use (5 Lf of tetanus toxoid and 2 Lf of diphtheria toxoid) Patrica Cruz Other [facility] 04-18-2018 Influenza, injectabl e, Madin Annalisa Canine Kidney, preservative free, quadrivalent Crystal Cooley RN [facility] 04-18-2018 influenza, seasonal, injectable Patrica Cruz Other [facility] 04-11-2017 influenza, injectabl e, quadrivalent, contains preservative Crystal Cooley RN [facility] 01-14-2016 influenza, injectabl e, quadrivalent, preservative free Crystal Cooley RN [facility] 01-07-2016 influenza, seasonal, injectable Patrica Cruz Other [facility] 12-14-2013 influenza, injectabl e, madin annalisa canine kidney, preservative free Crystal Cooley RN [facility] Payers Date Payer Category Payer Unknown MMO MMO MEDICARE SUPPLEMENT [id number] 2021-Present [phone] [address] [place] [address] Indemnity [id number] 2015 Medicare MEDICARE MEDICAR E A AND B [id number] 2015-Present [phone] [address] [address] [place] [address] Medicare [id number] 1959 Medicare [id number] 1959 Self-pay 1959 Unknown [id number] 1950 Unknown [id number] [id number] 1950 Unknown [id number] 2.16.840.1.955120.3.579.2.593 1950 Unknown [id number] 2.16.840.1.651949.3.579.2.593 1950 Unknown [id number] 2.16.840.1.082857.3.579.2.1259 1950 Unknown [id number] 2.16.840.1.138534.3.579.2.1259 1950 Unknown [id number] 2.16.840.1.300055.3.579.2.1259 1950 Unknown [id number] 2.16840.1.897609.3.579.2.727 1950 Unknown [id number] 2.840.1.234071.3.579.2.727 1950 Unknown [id number] 2.840.1.346632.3.579.2.727 1950 Unknown [id number] 2.840.1.427880.3.579.2.727 1950 Unknown [id number] 2.16840.1.525217.3.579.2.727 1950 Unknown [id number] 2.840.1.327370.3.579.2.727 1950 Unknown [id number] 2.16840.1.353111.3.579.2.727 1950 Unknown [id number] 2.16840.1.342377.3.579.2.727 1950 Unknown [id number] 2.16840.1.611808.3.579.2.727 1950 Unknown [id number] 2.16840.1.611170.3.579.2.727 1950 Unknown [id number] 2.16.840.1.693068.3.579.2.727 Unknown [id number] 2.16.840.1.185790.3.579.2.593 Unknown [id number] 2.16.840.1.176980.3.579.2.593 Unknown [id number] 2.16.840.1.540747.3.579.2.531 Unknown [id number] [id number]1 Social History Date Type Detail Facility Start: 09-05-2021 End: 10-14-2023 Tobacco smoking status Ex-smoker (finding) [facility] Other Start: 01-22-2023 End: 01-23-2023 Sex Assigned At Male [facility] Other Start: 1950 Sex Assigned At Male [facility] History of tobacco use Current smoker [facility] History of tobacco use Cigarette Smoker [facility] History of tobacco use Passive smoker [facility] Start: 01-22-2023 End: 01-23-2023 History of Social function [facility] Start: 1950 Sex Assigned At Not on file [facility] Start: 01-23-2023 Tobacco use and exposure Smokeless tobacco non-user [facility] Start: 01-23-2023 End: 02-20-2023 Alcohol intake Ex-drinker (finding) [facility] National Score (1-100), lower number is lower risk 64 [facility] Start: 05-22-2018 Tobacco smoking status NHIS Never smoked tobacco (finding) [facility] Functional Status Date Assessment Result Facility 10-14-2023 Functional Status N/A [facility] 08-13-2023 Functional Status N/A [facility] 05-06-2023 Functional Status N/A [facility] 12-25-2022 Functional Status N/A [facility] 11-12-2022 Functional Status N/A [facility] [place] Clinical Notes 02-22-2021 to 10-14-2023 Note Date [...] urethra. Follow these instructions at home: Take zitu-bal-cselekw and prescription medicines only as told by [...] provider. Document Revised: 10/18/2021 Document Reviewed: 10/18/2021 [employer] Patient Education 2022 ivWatch. Follow Up Care 05/06/2023 11:58:45 With:DEANNA WADDELL, Elia Cardona, URL Address: [facility] [address] [place] [address] [phone] When: Unknown [facility] 10-14-2023 Note Patient Education Urology Benign [...] Follow these instructions at home: ? Take yask-ynx-xztcdlt and prescription medicines only as told by [...] develop side effec (more content not included)... [facility] 08-13-2023 Hospital Discharge instructions Patient Education [...] urethra. Follow these instructions at home: Take vtvq-xmw-nxdnrev and prescription medicines only as told by [...] provider. Document Revised: 10/18/2021 Document Reviewed: 10/18/2021 [employer] Patient Education 2022 [employer]Watch. 08/13/2023 09:52:56 Urinary Incontinence Urinary Incontinence Urinary [...] (electrical nerve stimulation). ?For women, using a chief medical technologist to prevent urine leaks. This is a [...] right after experiencing incontinence. General instructions Take drsl-rdf-soambqt and prescription medicines only as told by [...] important. Where to find more information National [place] of Diabetes and Digestive and Kidney Diseases: www.niddk.nih.gov [employer]: www.urologyhealth.org Contact a health care [...] provider. Document Revised: 11/04/2020 Document Reviewed: 11/04/2020 [employer] Patient Education 2022 [employer]Watch. 08/13/2023 09:52:52 Overactive Bladder, Adult Overactive Bladder, [...] your health care provider. General instructions Take avfe-gyq-pwzagpx and prescription medicines only as told by [...] provider. Document Revised: 12/19/2020 Document Reviewed: 12/19/2020 [employer] Patient Education 2022 ivWatch. 08/13/2023 09:52:51 Kegel Exercises Kegel Exercises Kegel [...] provider. Document Revised: 08/10/2021 Document Reviewed: 08/10/2021 [employer] Patient Education 2022 [employer] 08/13/2023 09:52:50 Hematuria, Adult Hematuria, Adult Hematuria [...] Follow these instructions at home: Medicines Take gbno-sul-iuehitv and prescription medicines only as told by [...] or the blood stops without treatment. Take tjjj-ybs-shsrscq and prescription medicines only as told by your health care provider. Drink enough fluid to keep your urine pale yellow. This information is not intended to replace advice given to you by your health care provider. Make sure you discuss any questions you have with your health care provider. Document Revised: 11/30/2020 Document Reviewed: 11/30/2020 [employer] Patient Education 2022 ivWatch. [facility] 05-06-2023 Hospital Discharge instructions Patient Education 05/06/2023 [...] urethra. Follow these instructions at home: Take dvtu-ymr-liwzpnt and prescription medicines only as told by [...] provider. Document Revised: 10/18/2021 Document Reviewed: 10/18/2021 [employer] Patient Education 2022 ivWatch. Follow Up Care 12/27/2022 13:41:01 With:DEANNA WADDELL, Elia Cardona, URL Address: [facility] [address] [place] [address]- When:Within 3 Month(s) [facility] [facility] 04-16-2023 Evaluation note Encounter Date Diagnosis [...] partials. Saw hematology Dr. Clifton r/t kathryn krishnans, blood work and liver and spleen us [...] I Risk 3.9% 30-day risk of , MD, or cardiac arrest. DASI (Berger Activity Status [...] of this and agrees to this plan. [facility] Other 12-26-2023 Evaluation note* Encounter Date Diagnosis Assessment Notes Treatment Notes Treatment Clinical Notes Mar, Pre-op evaluation (ICD-10 - Z01.818) [facility] Other 12-19-2023 Evaluation note* Encounter Date Diagnosis Assessment Notes Treatment Notes Treatment Clinical Notes Mar, Abnormal CBC (ICD-10 - R79.89) [facility] Other 12-18-2023 Evaluation note* Encounter Date Diagnosis [...] received results. These are requested today from [facility]. Mar, Obesity (BMI 35.0-39.9 without comorbidity) (ICD-10 - E66.9) Patient is advised to work on healthy diet choices and appropriate servings, weight control, regular exercise as directed, reduced fat intake, and salt avoidance. Patient voiced understanding of this and agrees to this plan. [facility] Other 12-05-2023 Evaluation note* Encounter Date Diagnosis [...] (ICD-10 - J40) See above treatment plan. [facility] Other 11-21-2023 Evaluation note* Encounter Date Diagnosis Assessment Notes Treatment Notes Treatment Clinical Notes Feb, COVID-19 (ICD-10 - U07.1) [facility] Other 11-08-2023 NoteHNO ID: [id number] Author: Kesha Clifton MD Service: ? Author Type: Physician Type: Progress Notes Filed: 02/20/2023 10:57 AM Note Text: PATIENT NAME: Rachel Ackerman CLINIC NO.: [id number] ATTENDING PHYSICIAN: Kesha Clifton MD DATE OF [...] Range Status 01/23/2023 7.9 % Final Abs Terry Date Value Ref Range (more content not included)...[facility] 02-20-2023 History of Present illness Narrative* Kesha Clifton MD - 02/20/2023 10:50 AM EST Images from the original note were not included. PATIENT NAME: Rachel Ackerman CLINIC NO.: [id number] ATTENDING PHYSICIAN: Kesha Clifton MD DATE OF [...] Range Status 01/23/2023 7.9 % Final Abs Terry Date Value Ref Range Status 01/23/2023 0.60 [...] do not hesitate to contact me at [phone]. Kesha Clifton MD Hematology/Medical Oncology [facility] I spent a total of 20 minutes on the date of the service which included preparing to see the patient, orgf-jw-blwo patient care, completing clinical documentation, obtaining and/or reviewing separately obtained history, and counseling and educating the patient/family/caregiver. CC: Elia Huerta MD documented in [facility]23 Miscellaneous Notes* Telephone Encounter - Patrica Peoples [...] Crystal Cooley RN Triage please fax to [phone] or call [phone] c/o Mary documented in this encounterWayne [facility]10-11-2023 NoteHNO ID: [id number] Author: Kesha Clifton MD Service: ? Author Type: Physician Type: Progress Notes Filed: 01/23/2023 12:34 PM Note Text: PATIENT NAME: Rachel Ackerman [facility] NO.: [id number] ATTENDING PHYSICIAN: Kesha Clifton MD DATE OF [...] without mur (more content not included)...[facility] 12-26-2022 [id number]:127[facility]09-12-2023 Hospital Discharge instructions Patient Education 12/25/2022 [...] With:Elia HUERTA Address: [facility] [address] , [place] [address]- Business (1) When: Unknown Comments:Office will call to schedule follow up [facility]09-12-2023 NoteCustom Cystoscopy ? Voiding after the procedure: [...] if you have a fever over 100 degrees.[facility] 12-25-2022 Evaluation + Plan noteExtracted from: Title:Urology Progress Note Author:Mario HUERTA MD Date:12/25/22 Impression and Plan Impression: #1. This gentleman has BPH with LUTS refractory to medications. He is obstructed urodynamically. He is desirous for a TURP. Plan: #1. He will continue his Flomax and pro scar for now. We are getting him scheduled for TURP under anesthesia. [facility]07-31-2023 Hospital Discharge instructions Patient Education 11/12/2022 13:31:45 [...] including vitamins, herbs, eye drops, creams, and hrtz-cwo-xovbvdo medicines. Any problems you or family members [...] provider tells you to take them. Taking ihof-jkt-zfyzrum medicines, vitamins, herbs, and supplements. Surgery safety [...] provider. Document Revised: 12/26/2021 Document Reviewed: 12/26/2021 [employer] Patient Education 2022 ivWatch. 11/12/2022 13:23:11 Urodynamic Testing Urodynamic Testing Urodynamic [...] including vitamins, herbs, eye drops, creams, and rkco-hsn-qbidkrd medicines. ?Whether you are or may be [...] provider. Document Revised: 12/13/2021 Document Reviewed: 11/04/2020 [employer] Patient Education 2022 ivWatch. 11/12/2022 13:13:30 Benign Prostatic Hyperplasia Benign Prostatic [...] urethra. Follow these instructions at home: Take irdz-ubh-xkqhihk and prescription medicines only as told by [...] provider. Document Revised: 10/18/2021 Document Reviewed: 10/18/2021 [employer] Patient Education 2022 ivWatch. Follow Up Care 09/05/2021 11:51:48 With:DEANNA WADDELL, Elia Cardona, URL Address: [facility] [address], [place] [address]- [phone] When: Unknown Comments:sched urodynamics and cysto [facility] 06-15-2023 Evaluation note* Encounter Date Diagnosis Assessment Notes Treatment Notes Treatment Clinical Notes Sep, Medicare annual wellness visit, subsequent (ICD-10 - Z00.00) Personalized health advice was given to the beneficiary including a written plan for screenings discussed and provided. Advanced care planning reviewed and/or information given as requested. The above visit was performed by Mary De Leon, under direct supervision of Patrica Cruz,DNP,MORTGAGE ASSISTANT,NURSING INFORMATICS SPECIALIST. Document reviewed and amended by provider signed [...] of this and agrees to this plan. [facility] Other 11-14-2022 Evaluation note* Encounter Date Diagnosis [...] due to some fluid behind right ear. [facility] Other 05-24-2022 Hospital Discharge instructions Patient Education [...] urethra. Follow these instructions at home: Take noxw-rhp-auesxfi and prescription medicines only as told by [...] 04/01/2006 Document Revised: 02/24/2019 Document Reviewed: 05/06/2017 [employer] Patient Education [employer]. Follow Up Care 09/01/2020 11:16:04 With:Miguel Martinez MD, Will Carmichael URO Address: [facility] [address], [place] [address]- When: Unknown [facility] [place] 05-12-2022 Evaluation note* Encounter Date Diagnosis Assessment Notes Treatment Notes Treatment Clinical Notes August, Medicare annual wellness visit, initial (ICD-10 - Z00.00) Personalized health advice was given to the beneficiary including a written plan for screenings discussed and provided. Advanced care planning reviewed and/or information given as requested. The above visit was performed by Radha Lee LPN, IV-TADEO, under direct supervision of Patrica Cruz, DNP,MORTGAGE ASSISTANT, NURSING INFORMATICS SPECIALIST. Document reviewed and amended by provider signed [...] screening done. PSA screening lab ordered today. [facility] Other 11-10-2021 Evaluation note* Encounter Date Diagnosis [...] exercise as directed, and reduce fat intake. [facility] Other Evaluation + Plan note Future Appointments Appointment Date:09/11/2022 09:15:00 AM Scheduled Provider:Will Rivera Jr., MD Location:[facility] Appointment Type:URO Office Visit Diagnostic Tests Pending * PSA Total 09/05/21 [facility] evaluation + Plan note Future Appointments Appointment Date:12/11/2022 08:15:00 AM Scheduled Provider: Location:[facility] Appointment Type:Urology CALL PAT FT Appointment Date:12/25/2022 03:00:00 PM Scheduled Provider: Location:[facility] Appointment Type:Urology FT Appointment Date:12/25/2022 03:45:00 PM Scheduled Provider: Location:[facility] Appointment Type:Urology FT [facility] evaluation + Plan note Future Appointments Appointment Date:05/06/2023 10:45:00 AM Scheduled Provider:Elia HUERTA MD Location:[facility] Appointment Type:URO Office Visit [facility] evaluation + Plan note Future Appointments Appointment Date:08/05/2023 09:30:00 AM Scheduled Provider:Elia HUERTA MD Location:[facility] Appointment Type:URO Office Visit [facility] evaluation + Plan note Future Appointments Appointment Date:10/14/2023 11:45:00 AM Scheduled Provider:Elia HUERTA MD Location:[facility] Appointment Type:URO Office Visit [facility] evaluation + Plan note Future Appointments Appointment Date:04/20/2024 11:15:00 AM Scheduled Provider:Elia HUERTA MD Location:[facility] Appointment Type:URO Office Visit [facility] evaluation noteNo InformationNoEnvironmental Support Solutions [employer] Other Evaluation noteNo assessment information [facility] Work Phone: Evaluation note* Diagnosis Thrombocytopenia (HCC)- Primary Thrombocytopenia, unspecified Platelets decreased (HCC) Thrombocytopenia, unspecified documented in this encounter [facility]* Diagnosis Onset Date Resolution Status Abnormality of abdominal aorta acute Allergic rhinitis acute Asthma acute Basal cell carcinoma of skin acute BPH (benign prostatic hyperplasia) acute Chronic maxillary sinusitis acute Generalized anxiety disorder acute Mixed hyperlipidemia acute Moderate episode of recurrent major depressive disorde r acute Obstructive sleep apnea (adult) (pediatric) acute Temporary low platelet count acute [id number] [facility] Work Phone: evaluation note* Diagnosis Onset Date Resolution Status Mixed hyperlipidemia acute Thrombocytopenia acute [id number] [facility] Work Phone: Hisscle general Narrative - Reported* Type Description Date [...] 02/2017 Surgical History tonsillectomy Hospitalization History see [facility] Other Hisfylw general Narrative - Reported* Type Description Date [...] total knee replacement. 2020 Hospitalization History see [facility] Other History general Narrative - Reported* Type [...] total knee replacement. 2020 Hospitalization History see [facility] Other Hospital course Narrative No data available for this section [facility] Hospital Discharge instructions No data available for this section [facility] Hospital Discharge instructionsAmbulatory Orders* Referral to Pulmonology Location: None [facility] Work Phone: Progress note No data available for this section [facility] Summary Purpose Family History Relationship Condition Age at Onset Recorded Date/T kareem father Unknown grandparent Unknown Not Specified Malignant neoplasm Unknown Unknown sister Unknown Malignant neoplasm Unknown Malignant neoplasm of bone Unknown Relationship Condition Age at Onset Recorded Date/T kareem father Unknown grandparent Unknown mother Malignant neoplasm Unknown Unknown sister Unknown Malignant neoplasm Unknown Malignant neoplasm of bone Unknown Advance Directives Advance Directive Response Recorded Date/ Time Advance Directives No May 19, 2018 2:53pm Advance Directive Response Recorded Date/ Time Advance Directives No May 19, 2018 1:53pm Hospital Course Note [facility] Clinical Discharge Summary PERSON INFORMATION Name RACHEL ACKERMAN Age 68 Years 1950 Sex MALE Language Greenlandic PCP Patrica Cruz DNP Marital Status Med Service Med/Surg Acct# Arrival 06/01/2019 06:00:00 Visit Reason SURGERY - RIGHT TOTAL KNEE Acuity LOS Address: [address] [place] [id number] Comment: PROVIDER INFORMATION VITALS INFORMATION Vital Sign [...] history): All Problems Alcoholism / SNOMED CT 40247312 / Confirmed Anxiety / SNOMED CT 61485810 / Confirmed Asthma / SNOMED CT 939736064 / Confirmed Depression / SNOMED CT 46053450 / Confirmed Former smoker / SNOMED CT 41021525 / Confirmed Hyperlipidemia / SNOMED CT 14439972 / Confirmed Skin cancer / SNOMED CT 5668154169 / Confirmed Sleep apnea / SNOMED CT 00428119 / Confirmed Physical Examination VS/Measurements Vital Signs [...] history): All Problems Alcoholism / SNOMED CT 37232915 / Confirmed Anxiety / SNOMED CT 91795623 / Confirmed Asthma / SNOMED CT 794712506 / Confirmed Depression / SNOMED CT 54376990 / Confirmed Former smoker / SNOMED CT 51504481 / Confirmed Hyperlipidemia / SNOMED CT 53442278 / Confirmed Skin cancer / SNOMED CT 0048426285 / Confirmed Sleep apnea / SNOMED CT 36255223 / Confirmed Physical Examination VS/Measurements Vital Signs [...] lower urinary tract symptoms (N40.1) Referral Organization [facility] [place] Referring Provider First Name Patrica Referring Provider Last Name Anthony Referring Provider Specialty Nurse Pract itioner Referred Organization [facility] Referred Provider Eduardo Rogers Referred Address [address] [place],[address] Referred Provider Specialty Urology Referral Priority Routine [...] apnea (adult) (pediatric) Temporary low platelet count [id number] Reason for Visit Mixed hyperlipidemia Thrombocytopenia [id number] Additional Source Comments (unrecognized sect ion and content) No Status Records FoundNo Status Records FoundNo Status Records FoundNo Status Records FoundNo Status Records FoundNo Status Records FoundNo Status Records Found INFORMATION SOURCE (unrecogn ized section and content) DATE CREATED AUTHOR 06/16/2019 [facility] DATE CREATED AUTHOR AUTHOR'S ORGANIZ ATION 09/24/2020 [facility] DATE CREATED AUTHOR AUTHOR'S ORGANIZ ATION 02/21/2023 [facility] DATE CREATED AUTHOR AUTHOR'S ORGANIZ ATION 05/24/2023 [facility] DATE CREATED AUTHOR AUTHOR'S ORGANIZ ATION 08/18/2023 [facility] EPIC DATE CREATED AUTHOR AUTHOR'S ORGANIZ ATION 10/15/2023 [facility] REASON FOR VISIT (unrecogniz ed section [...] July 08, 2023 End: July 08, 2023 Team Status: Active Member Role Status Dates Claire Massey DO Primary Care Provider Active Team Status: Inactive Member Role Status Dates Claire Massey DO Primary Care Provid er, Attending Provider Active Start: January 24, 2024 End: January 24, 2024 Goals (unrecognized section and content) Goals may be documented in a n alternate section Source Comments (unrecognize d section and content) In the event this informatio n is protected by the Federal Confidentiality of Alcohol and Drug Abuse Patient Records regulations: The Federal rules restrict any use of the information to criminally investigate or prosecute any alcohol or drug abuse patient.[facility] CampusIn the event this information is protected by the Federal Confidentiality of Alcohol and Drug Abuse Patient Records regulations: The Federal rules restrict any use of the information to criminally investigate or prosecute any alcohol or drug abuse patient.[facility] CampusIn the event this information is protected by the Federal Confidentiality of Alcohol and Drug Abuse Patient Records regulations: The Federal rules restrict any use of the information to criminally investigate or prosecute any alcohol or drug abuse patient.[facility] FOR RECORDS PERTAINING TO PATIENTS WHO ARE [...] BE BASED ON THE PRIMARY CLINICAL RECORDS. [facility] [employer] [facility]. provides no warranty or guarantee of the accuracy or completeness of information in this document.
[2024-01-31 09:07] LABS: Basophils Absolute Auto 0.1 10^3/uL (0.0-0.1); Basophils Percent Auto 1.1 % (0.2-2.0); Eosinophils Absolute Auto 0.2 10^3/uL (0.0-0.7); Eosinophils Percent Auto 2.2 % (0.9-7.0); Hemoglobin 16.2 g/dL (14.0-18.0); Immature Granulocytes Abs Auto 0.08 10^3/uL (0.00-0.03); Lymphocytes Absolute Auto 2.8 10^3/uL (1.2-3.8); Lymphocytes Percent Auto 33.3 % (20.5-60.0); Mean Corpuscular HGB Conc 34.5 g/dL (29.9-35.2); Mean Corpuscular Hemoglobin 29.6 pg (25.9-34.0); Mean Corpuscular Volume 85.9 fL (80.0-94.0); Mean Platelet Volume 8.7 fL (9.5-13.5); Monocytes Absolute Auto 0.5 10^3/uL (0.3-0.8); Neutrophils Absolute Auto 4.7 10^3/uL (1.4-6.5); Neutrophils Percent Auto 56.4 % (43.0-75.0); Platelet Count 142 10^3/uL (150-450); Red Blood Count 5.47 10^6/uL (4.70-6.10); Red Cell Distribution Width 13.1 % (11.0-15.0); White Blood Count 8.4 10^3/uL (4.0-11.0)
[2024-01-31 09:47] LABS: Estimated Average Glucose 126 mg/dL
[2024-01-31 10:27] LABS: Alanine Aminotransferase 49 U/L (16-63); Albumin Globulin Ratio 1.2; Albumin Level 4.1 g/dL (3.4-5.0); Alkaline Phosphatase 95 U/L (46-116); Anion Gap 15.5; Aspartate Amino Transferase 30 U/L (15-37); BUN Creatinine Ratio 8.7; Bilirubin Total 1.3 mg/dL (0.2-1.0); Calcium 8.9 mg/dL (8.5-10.1); Carbon Dioxide 25.5 mmol/L (21.0-32.0); Chloride 103 mmol/L (98-107); Chol HDL Ratio 2.8; Cholesterol 122 mg/dL (<=200); Estimated GFR (African America >60 (>=60 mL/min/1.73m^2); Estimated GFR (Non-African Ame >60 (>=60 mL/min/1.73m^2); Globulin 3.4 g/dL; Glucose 106 mg/dL (74-106); HDL Cholesterol 43 mg/dL (40-60); LDL Cholesterol Calculated 49.8 mg/dL; Sodium 140 mmol/L (136-145); Total Protein 7.5 g/dL (6.4-8.2); Triglycerides 146 mg/dL (<=150); VLDL CHOLESTEROL 29.2 mg/dL
[2024-01-31 11:15] LABS: Creatinine Urine Random 74.85 mg/dL (20.00-300.00); Microalbumin Urine Random <1.3 mg/dL (<=30.0)
== END 2024-01-31 08:43 | disposition home or self-care (01) ==
LOC: LAB 08:42
PROVIDERS: PCP Nurse Practitioner Family
DX: G47.33 Obstructive sleep apnea (adult) (pediatric) (principal); D69.6 Thrombocytopenia, unspecified; E11.9 Type 2 diabetes mellitus without complications; E78.2 Mixed hyperlipidemia
CPT/HCPCS: 36415; 80053; 80061; 82043; 82570; 83036; 85025

== ENCOUNTER 2024-08-18 09:54 | Outpatient (OUT) | payer MEDICARE, OTHER, SELFPAY ==
--- NOTE | 2024-08-18 10:07 | CT_ITS ---
The [address] [address] Patient Name: RACHEL HENRY MRN: [id number] date: 1950 Sex: M Assigned Patient Location: CT Current Patient Location: CT Accession/Order Number: [id number] Exam Date: 08/18/2024 11:26 Report Date: 08/18/2024 11:30 At the request of: HUMPHREY GONZALEZ DO Procedure: CT chest wo con CT CHEST WITHOUT IV CONTRAST: CLINICAL HISTORY: Lung Mass COMPARISON: None TECHNIQUE: Spiral images were obtained through the chest without IV contrast. This CT exam was performed using one or more following dose reduction techniques: Automated exposure control, adjustment of the mA and/or kV according to patient size, or use of iterative reconstruction technique. FINDINGS: Mediastinum:Thoracic aorta appears normal in caliber. Pulmonary trunk appears nondilated. No pleural effusion. No lymphadenopathy. The esophagus is grossly unremarkable. Lungs:Bibasilar atelectasis/scarring. No consolidation pneumothorax or pleural effusion. The previously identified area of scarring versus nodule involving the lingula appears more prominent on today's study measuring 18 mm in greatest axial dimension. This appears more like scarring on the sagittal reformatted images. Mild reticular changes. No honeycombing. Abd:No acute findings. Soft tissues/Bones: Soft tissues demonstrate no acute process. Osseous structures demonstrate degenerative change. CT/CT chest wo con IMPRESSION: The previously identified area of scarring versus nodule appears more prominent on today's study within the lingula measuring 18 mm in greatest axial dimension. The latter is favored. Continued CT follow-up is suggested. Impression dictated by: Luis Raza Jr., D.O. 08/18/2024 11:30 AM Dictation Location: [place] [address] Electronically authenticated by: [id number] Date: 08/18/2024 11:30
== END 2024-08-18 09:55 | disposition home or self-care (01) ==
LOC: CT 09:56
PROVIDERS: PCP Nurse Practitioner Family; Visit Provider Internal Medicine
DX: R91.8 Other nonspecific abnormal finding of lung field (principal)
CPT/HCPCS: 71250

== ENCOUNTER 2025-03-15 09:31 | Outpatient (OUT) | payer MEDICARE, OTHER, SELFPAY ==
--- OUTSIDE RECORDS SUMMARY | 2025-03-09 14:00 | XMS_ITS | Encounter Summary ---
Author Organization [facility] Address [address], [address] [place] [address] Care Team Providers Care Open Claims Representative Name Role Phone Claire Aguirre DO Primary Care Provider [phone] Reason for Referral * Imaging (Routine) - OpenSpecialtyDiagnoses / ProceduresReferred By Contact Referred To ContactRadiology Diagnoses Mass of lingula of lung Procedures CT CHEST WO CONTRAST Ean Albright DO [address] [place] [address] 6 [place] [address] Phone: tel: fax: Referral IDStatusReasonStart DateExpiration DateVisits RequestedVisits [id number] Reason for Visit * ReasonCommentsFollow-upPatient presents for a follow up for Asthma. Patient is currently using Trelegy daily with great benefit. Patient reports rare albuterol use. Patient currently wears a PAP and is managed by . Patient denies any complaints today with his breathing. Encounter Details DateTypeDepartmentCare Team (Latest Contact Info)Hyoqwiowqzs61/25/2025 2:00 PM ESTOffice Visit [facility] [address] [place] [address] 6 [place] [address] Ean Albright DO [address] 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; Obesity (BMI 30.0-34.9) Social History Tobacco UseTypesPacks/DayYears UsedDateSmoking Tobacco: FormerCigarettes1.515 1968 - 1983Smokeless Tobacco: NeverAlcohol UseStandard Drinks/WeekCommentsNot Currently0 (1 standard drink = 0.6 oz pure alcohol)Sex and Gender Information ValueDate RecordedSex Assigned at XueixKexm71/25/2025 1:37 PM ESTLegal SexMale 01/20/2025 11:17 AM EDTGender OopfzltvHgwy26/25/2025 1:37 PM ESTSexual SzimhvpdlziBgwxhhxs29/25/2025 1:37 PM ESTOccupationIndustryJob Start DateJob 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 on fileNot on fileNot on fileMarketing & salesNot on fileNot on fileNot on fileTeacherNot on fileNot on fileNot on filedocumented as of this encounter Last Filed Vital Signs Vital SignReadingTime TakenCommentsBlood Vfpmszwt049/8411 1:51 PM EST Niekj868903/09/2025 1:51 PM SMQXejwfurrwwi49 ??C (96.8 ??F)03/09/2025 1:51 PM EST Respiratory Zjvv500605/09/2024 1:51 PM ESTOxygen Yjnchzwqtm16%03/09/2025 1:51 PM ESTon room airInhaled Oxygen Concentration--Hvfmga214.9 kg (240 lb)03/09/2025 1:51 PM ESTPatient EjsrncyxKslgct905.3 cm (5' 9 )03/09/2025 1:51 PM ESTBody Mass Index35.44105/09/2024 1:51 PM ESTdocumented in this encounter Patient Instructions * Patient Instructions* Ean Albright DO - 03/09/2025 2:22 PM EST Start Airsupra instead of albuterol - 2 puffs up to every 4 hours as needed for shortness of breath- rinse after using it as it is albuterol plus an inhaled steroid. If this is too expensive, just go back to regular albuterol, but let the office know so I can send in a prescription. Get the CT chest done. Will discuss results at follow up visit. documented in this encounter Progress Notes * Ean Albright DO - 03/09/2025 2:00 PM EST Images from the original note were not included. Date of encounter: 03/09/25 Sandor Ackerman 1950 (74 y.o.) [phone] [address] Sandor Ackerman was seen today in the office by me. Below is my assessment and plan of the patient: Assessment & Plan Moderate persistent asthma, uncomplicated Prior treatment: Trelegy 200 > Breo 200 > Advair Patient states his breathing is doing well, but he is having to use albuterol ~3 times a week in the evening. Albuterol use has increased since last visit, which used to be rare. Breath sounds are currently clear, but he seems to be having a wearing off effect as the day goes on. He is already on the higher dose of Trelegy. I suggested changing albuterol to Airsupra. I explained it is albuterol with an additional ICS (budesonide). It is used exactly as albuterol, but rinsing after use was advised. If it is too expensive, will stay with albuterol. If albuterol use increases further, may need to consider biologic therapy. Orders: TRELEGY ELLIPTA 200-62.5-25 MCG/ACT AEPB inhaler; Inhale 1 puff into the lungs daily Rinse after use guaiFENesin (MUCINEX MAXIMUM STRENGTH) 1200 MG TB12; Take 1 tablet by mouth 2 times daily Mass of lingula of lung History: Abnormal lingular mass: -CT Chest 09/19/2023 noted lingular 2.4cm abnormalitiy, noted on CXR 09/10/2023, new from 05/07/2019. -PET 10/14/2023: Mild FDG uptake, similar to background -CT Chest 01/15/2024: Slight decrease in size to 1.5cm. -CT Chest 08/18/2024: More prominence, appears like scarring - 1.8cm Imaging was previously reviewed by me. Suspicion is scarring, but a 6 month F/U was recommended. CTchest was ordered for ~02/27/2025, but patient was not contacted by [facility]. I reordered CT chest without contrast that is to be done as soon as patient is able to. He will return within 4 weeks to review the results. Orders: CT CHEST WO CONTRAST; Future JOSE ANGEL (obstructive sleep apnea) Manged by Dr. Sheldon. History of tobacco abuse The patient was evaluated for low-dose CT (LDCT) for lung cancer screening. Current Medicare-accepted eligibility criteria were reviewed. - Age 50-77 years: Patient's age = 74 y.o. - Asymptomatic (no signs or symptoms of lung cancer): Yes - Tobacco Use Smoking status: Former Packs/day: 0.00 Years: 1.5 packs/day for 15.0 years (22.5 ttl pk-yrs) Types: Cigarettes Start date: 1968 Quit date: 1983 Years since quittin.9 Smokeless tobacco: Never Based on the above, he is not candidate for LDCT screening for the following reason(s): quit smoking >15 years ago. DM2 (diabetes mellitus, type 2) Steroids prescribed for this patient's underlying pulmonary disease can adversely affect blood glucose levels, inducing hyperglycemia and/or worsening underlying diabetes. He was encouraged to follow-up with his primary care provider to create a management plan. 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 Obesity (BMI 30.0-34.9) Increased adiposity may contribute to a restrictive pulmonary physiology. Weight loss is encouraged- decrease calories, increase activity as tolerated. Planned follow-up: Return in about 4 weeks (around 04/06/2025) for CT chest review, asthma. Data: PFT -Date: 09/10/2023 --FEV1/FVC: 73% -FEV1: 147% -FVC: 143% -Bronchodilator response: None -RV: 146% -T% -DLCO: 112% Subjective: Sandor Ackerman was previously established with me at [facility] and is now establishing with me at [facility]. He was last seen by me on 08/24/2024. His records from [facility] were reviewed. He states his breathing has been controlled. However, he admits that sometimes in the evening, he needs something more and uses albuterol and admitted it is ~3 times a week. He does not take the albuterol with him outside the house. No exacerbations reported. He uses Mucinex daily to help with chest congestion. CT chest is due for 6 month F/U for lung mass/abnormality, but it appears the order was misplaced; it was ordered by me at the last visit for ~02/27/2025, but [facility] never contacted the patient. HPI Follow-up Additional comments: Patient presents for a follow up for Asthma. Patient is currently using Trelegy daily with great benefit. Patient reports rare albuterol use. Patient currently wears a PAP and ismanaged by . Patient denies any complaints today with his breathing. Last edited by Aaron Rodriguez MA on 03/09/2025 2:03 PM. Review of systems: Review of Systems Constitutional: Negative for fatigue and unexpected weight change. HENT: Negative for sore throat. Respiratory: Positive for shortness of breath (Sometimes by the evening). Negative for cough, chesttightness and wheezing. Cardiovascular: Negative for chest pain. Exam: BP 122/84 (BP Site: Left Upper Arm, Patient Position: Sitting, BP Cuff Size: Large Adult) Pulse 73 Temp 96.8 ??F (36 ??C) (Infrared) Resp 18 Ht 1.753 m (5' 9 ) Wt 108.9 kg (240 lb) Comment:Patient Reported SpO2 99% Comment: on room air BMI 35.44 kg/m?? Physical Exam HENT: Mouth/Throat: Mouth: Mucous membranes are moist. Pharynx: Oropharynx is clear. Comments: Mallampati III. No oral candidiasis. Cardiovascular: Rate and Rhythm: Normal rate and regular rhythm. Pulmonary: Effort: Pulmonary effort is normal. No respiratory distress. Breath sounds: Normal breath sounds. No wheezing or rhonchi. Abdominal: Comments: Increased central adiposity. Neurological: Mental Status: He is alert. Psychiatric: Mood and Affect: Mood normal. Behavior: Behavior normal. Medical history: Past Medical History: Diagnosis Date Allergic rhinitis 03/09/2025 Basal cell carcinoma (BCC) 08/14/2015 BPH (benign prostatic hyperplasia) Chronic ITP (idiopathic thrombocytopenia) (HCC) 03/09/2025 Chronic maxillary sinusitis DM2 (diabetes mellitus, type 2) Generalized anxiety disorder 08/13/2016 History of COVID-19 History of tobacco abuse HLD (hyperlipidemia) Mass of lingula of lung Moderate episode of recurrent major depressive disorder (HCC) 08/15/2023 Moderate major depression Moderate persistent asthma, uncomplicated JOSE ANGEL (obstructive sleep apnea) Past Surgical History: Procedure Laterality Date HENDERSON MORAIMA Right 03/05/2017 MENISCECTOMY Right 06/28/2014 TONSILLECTOMY TOTAL KNEE ARTHROPLASTY Right 06/01/2019 TURP 04/18/2023 UVULOPALATOPHARYGOPLASTY Allergies Allergen Reactions Doxazosin Anaphylaxis, Itching and Swelling Current Outpatient Medications Medication Sig Dispense Refill amitriptyline (ELAVIL) 25 MG tablet Take 1 tablet by mouth nightly at bedtime. busPIRone (BUSPAR) 30 MG tablet Take 30 mg by mouth 2 times daily ezetimibe (ZETIA) 10 MG tablet Take 1 tablet by mouth daily finasteride (PROSCAR) 5 MG tablet Take 1 tablet by mouth daily GEMTESA 75 MG TABS tablet Take 1 tablet by mouth daily sertraline (ZOLOFT) 100 MG tablet Take 1 tablet by mouth 2 times daily TRELEGY ELLIPTA 200-62.5-25 MCG/ACT AEPB inhaler Inhale 1 puff into the lungs daily Rinse after lsm624 each 4 Albuterol-Budesonide (AIRSUPRA) 90-80 MCG/ACT AERO Inhale 2 puffs into the lungs every 4 hours as needed (shortness of breath) Rinse after use. 32.1 g 4 guaiFENesin (MUCINEX MAXIMUM STRENGTH) 1200 MG TB12 Take 1 tablet by mouth 2 times daily 180 tablet4 No current facility-administered medications for this visit. Immunization History Administered Date(s) Administered COVID-19, Inactive, PFIZER PURPLE top, DILUTE for use, (age 12 y+) 05/09/2020, 06/01/2020, 04/16/2021 Social History Tobacco Use Smoking status: Former Current packs/day: 0.00 Average packs/day: 1.5 packs/day for 15.0 years (22.5 ttl pk-yrs) Types: Cigarettes Start date: 1968 Quit date: 1983 Years since quittin.9 Smokeless tobacco: Never Substance Use Topics Alcohol use: Not Currently Family History Problem Relation Age of Onset Breast Cancer Mother Emphysema Father Breast Cancer Sister Melanoma Brother On this date 03/09/2025 I have spent 30 minutes reviewing previous notes, test results and face to face with the patient discussing the diagnosis and importance of compliance with the treatment plan as well as documenting on the day of the visit. An electronic signature was used to authenticate this note. -Ean Albright DO, PharmD, FACOI documented in this encounter Plan of Treatment DateTypeDepartmentCare Team (Latest Contact Info)Gakarfvkcqw88/23/2025 11:30 AM ESTOffice Visit [facility] [address] [place] [address] [place] [address] Ean Albright DO [address] [place] [address] 1 MO F/U CT CHESTNameTypePriorityAssociated DiagnosesOrder ScheduleCT CHEST WO CONTRASTImagingRoutine Mass of lingula of lung Expected: 03/09/2025, Expires: 03/10/2026documented as of this encounter Visit Diagnoses Diagnosis Moderate persistent asthma, uncomplicated- Primary Unspecified asthma Mass of lingula of lung Swelling, mass, or lump in chest JOSE ANGEL (obstructive sleep apnea) Obstructive sleep apnea (adult) (pediatric) History of tobacco abuse Personal history of tobacco use, presenting hazards to health DM2 (diabetes mellitus, type 2) 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
--- OUTSIDE RECORDS SUMMARY | 2025-03-15 09:34 | XMS_ITS | Clinical Summary ---
Author Organization [facility] 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 Name Role Phone ParagClaire damian Primary Care Provider [phone] Allergies Active AllergyReactionsCriticalityNoted DateCommentsDoxazosinAnaphylaxis,Itching ,SqoahnkaFeip77/23/2015 Medications MedicationSigDispense QuantityRefillsLast FilledStart DateEnd DateStatus amitriptyline (ELAVIL) 25 MG tablet Take 1 tablet by mouth nightly at bedtime.Active busPIRone (BUSPAR) 30 MG tablet Take 30 mg by mouth 2 times dailyActive ezetimibe (ZETIA) 10 MG tablet Take 1 tablet by mouth dailyActive finasteride (PROSCAR) 5 MG tablet Take 1 tablet by mouth daily4Active GEMTESA 75 MG TABS tablet Take 1 tablet by mouth dailyActive sertraline (ZOLOFT) 100 MG tablet Take 1 tablet by mouth 2 times dailyActive TRELEGY ELLIPTA 200-62.5-25 MCG/ACT AEPB inhaler Indications:Moderate persistent asthma, uncomplicatedInhale 1 puff into the lungs daily Rinse after use 180 each 5Active Albuterol-Budesonide (AIRSUPRA) 90-80 MCG/ACT AERO Inhale 2 puffs into the lungs every 4 hours as needed (shortness of breath) Rinse after use. 32.1 g 5Active guaiFENesin (MUCINEX MAXIMUM STRENGTH) 1200 MG TB12 Indications:Moderate persistent asthma, uncomplicatedTake 1 tablet by mouth 2 times daily 180 tablet 5Active TRELEGY ELLIPTA 200-62.5-25 MCG/ACT AEPB inhaler Indications:Moderate persistent asthma, uncomplicatedInhale 1 puff into the lungs daily03/09/2025Discontinued(REORDER) guaiFENesin (MUCINEX) 600 MG extended release tablet Take 1 tablet by mouth 2 times daily03/09/2025Discontinued(DOSE ADJUSTMENT) albuterol sulfate HFA (PROVENTIL;VENTOLIN;PROAIR) 108 (90 Base) MCG/ACT inhaler Inhale 2 puffs into the lungs every 4 hours as uwrmhg5503/09/2025Discontinued (Ineffective) Active Problems ProblemNoted DateDiagnosed DateLong term (current) use of inhaled steroids 03/08/2025 Assessment & Plan (03/09/2025 3:05 PM EST): The patient was counseled to rinse and gargle after use of his steroid- containing inhaler to reducethe risk of oral candidiasis and other potential adverse effects. Mass of lingula of lung Assessment & Plan (03/09/2025 3:05 PM EST): History: Abnormal lingular mass: -CT Chest 09/19/2023 [...] ~02/27/2025, but patient was not contacted by [facility]. I reordered CT chest without contrast that is to be done as soon as patient is able to. He will return within 4 weeks to review the results. Orders: CT CHEST WO CONTRAST; Future JOSE ANGEL (obstructive sleep apnea) Assessment & Plan (03/09/2025 3:05 PM EST): Manged by Dr. Sheldon. DM2 (diabetes mellitus, type 2) Assessment & Plan (03/09/2025 3:05 PM EST): Steroids prescribed for this patient's underlying pulmonary disease can adversely affect blood glucose levels, inducing hyperglycemia and/or worsening underlying diabetes. He was encouraged to follow-up with his primary care provider to create a management plan. Moderate persistent asthma, uncomplicated Assessment & Plan (03/09/2025 3:05 PM EST): Prior treatment: Trelegy 200 > Breo 200 [...] 1 tablet by mouth 2 times daily History of tobacco abuse Assessment & Plan (03/09/2025 3:05 PM EST): The patient was evaluated for low-dose CT [...] following reason(s): quit smoking >15 years ago. 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; Obesity (BMI 30.0-34.9)from Last 3 Months Family History Medical HistoryRelationNameCommentsMelanomaBrotherEmphysemaFatherBreast Cancer MotherBreast CancerSisterRelationNameStatusCommentsBrotherFatherMotherSister Social History Tobacco UseTypesPacks/DayYears UsedDateSmoking Tobacco: FormerCigarettes1.515 1968 - 1983Smokeless Tobacco: NeverAlcohol UseStandard Drinks/WeekCommentsNot Currently0 (1 standard drink = 0.6 oz pure alcohol)Sex and Gender Information ValueDate RecordedSex Assigned at EginbWmpm61/25/2025 1:37 PM ESTLegal SexMale 01/20/2025 11:17 AM EDTGender AbflmpvfWjmt14/25/2025 1:37 PM ESTSexual LpwhporcwdaPpfbdwmu70/25/2025 1:37 PM ESTOccupationIndustryJob 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 DateJob 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 on fileNot on fileMarketing & salesNot on fileNot on fileNot on fileTeacherNot on fileNot on fileNot on file Last Filed Vital Signs Vital SignReadingTime TakenCommentsBlood Xyoeuybe605/8403/09/2025 1:51 PM EST Jcala463803/09/2025 1:51 PM HYUFtuhxeslzoy80 ??C (96.8 ??F)03/09/2025 1:51 PM EST Respiratory Bzvf058505/09/2024 1:51 PM ESTOxygen Vpnhvmhset11%03/09/2025 1:51 PM ESTon room airInhaled Oxygen Concentration--Ymzdty337.9 kg (240 lb)03/09/2025 1:51 PM ESTPatient SxdjstezRfzimz086.3 cm (5' 9 )03/09/2025 1:51 PM ESTBody Mass Index35.44105/09/2024 1:51 PM EST Plan of Treatment DateTypeDepartmentCare Team (Latest Contact Info)Sckfefpcufw02/23/2025 11:[address] [facility] [address], [address] [place] [address] Ean Albright DO [address] [facility] [address] [place] [address] 1 MO F/U CT CHESTHealth MaintenanceDue DateLast YfvoGwrlxuvaP2L test (Diabetic or Prediabetic)1Diabetic foot exam7832Pnheuz39/07/1961Depression Slwshy9311/19/1962Diabetic Alb to Cr ratio (uACR) test1968Diabetic retinal exam1968GFR test (Diabetes, CKD 3-4, OR last GFR 15-59)1968Hepatitis C ekieny3011/19/19687178Wskjugmfhod11/07/1996Colorectal Cancer Iujytu7011/20/1995 FIT/FOBT: Average risk11/20/1995Fecal-DNA (Cologuard): Average risk11/20/1995 Sigmoidoscopy/CT vsttsvusfcpy72/07/1996Shingles vaccine (1 of 2)2000 Respiratory Syncytial Virus (RSV) or age 60 yrs+ (1 - Risk 60-74 years 1-dose series)2010AA xyugkn9011/20/2015DTaP/Tdap/Td vaccine (1 - Tdap) Flu vaccine (#1)511/, 03/23/2020, 03/09/2019, Additional history existsCOVID-19 Vaccine ( season) /05/2021, 06/01/2020, 1Annual Wellness Visit (Medicare) 01/20/2025Pneumococcal 50+ years YmohrjzWohgwkwyh69/09/2020, 03/09/2019Hepatitis A vaccineAged OutNo longer eligible based on patient's age to complete this topicHepatitis B vaccineAged OutNo longer eligible based on patient's age to complete this topicHib vaccineAged OutNo longer eligible based on patient's age to complete this topicMeningococcal (ACWY) vaccineAged OutNo longer eligible based on patient's age to complete this topicMeningococcal B vaccineAged OutNo longer eligible based on patient's age to complete this topicPolio vaccineAged OutNo longer eligible based on patient's age to complete this topic Insurance * Guarantor: Sandor Ackerman TypeRelation to PatientDate of PhoneBilling AddressPersonal/QaaofhHzgp[birth year][address] [address] Advance Directives NameRelationshipHealthcare Agent RelationshipCommunicationNic Deniseimary Decision Maker* Care Teams Team MemberRelationshipSpecialtyStart DateEnd Date Claire Aguirre DO [address] [place] [address] PCP - GeneralFamily Hyxgmtpu94/25/25
--- OUTSIDE RECORDS SUMMARY | 2025-03-15 09:34 | XMS_ITS | Clinical Summary ---
Author Organization [facility] Address [address] [place], [place] [id number] Care Team Providers Care Managed Care Provider Name Role Phone Unavailable Primary Care Provider Unavailabl e Allergies Active AllergyReactionsCriticalityNoted DateCommentsDoxazosinAnaphylaxis 01/22/2023 Medications MedicationSigDispense QuantityRefillsLast FilledStart DateEnd DateStatus acetaminophen (TYLENOL) 500 mg tablet Take 500 mg by mouth every 6 hours as needed.Active atorvastatin (LIPITOR) 80 mg tablet Take 80 mg by mouth once daily.Active fluticasone-vilanterol (BREO ELLIPTA) 200-25 mcg/dose inhaler Inhale 1 Inhalation as instructed once daily.Active busPIRone HCl 30 mg tablet Take 30 mg by mouth once daily.Active ferrous sulfate 325 mg (65 mg iron) tablet Take 325 mg by mouth once daily.Active finasteride (PROSCAR) 5 mg tablet Take 5 mg by mouth once daily.Active sertraline (ZOLOFT) 100 mg tablet Take 100 mg by mouth once daily.Active tamsulosin (FLOMAX) 0.4 mg Take 0.4 mg by mouth once daily.Active albuterol HFA (VENTOLIN HFA) 90 mcg/actuation inhaler Inhale 2 Puffs as instructed.Active ezetimibe (ZETIA) 10 mg tablet Take 10 mg by mouth once daily.Active Immunizations ImmunizationAdministration DatesNext Dueinfluenza (HD-IIV3) vaccine, age 65+ yr, high dose, trivalent, PF (FLUZONE HIGH-DOSE)02/26/2022,03/23/2020,03/09/2019 influenza (HD-IIV4) vaccine, age 65+ yr, high dose, quadrivalent, PF (FLUZONE HIGH-DOSE)03/23/2020influenza (IIV3) vaccine, trivalent (AFLURIA, FLULAVAL, FLUVIRIN, FLUZONE)04/18/2018,01/07/2016influenza (IIV4) vaccine, age 6 mo - 64 yr, quadrivalent, PF (AFLURIA, FLUARIX, FLULAVAL, FLUZONE)01/14/2016influenza (IIV4) vaccine, quadrivalent (AFLURIA, FLULAVAL, FLUZONE)04/11/2017influenza (ccIIV3) vaccine, age 6+ mo, trivalent, PF (FLUCELVAX)12/14/2013influenza (ccIIV4) vaccine, age 6+ mo, quadrivalent, PF (FLUCELVAX)04/18/2018pneumococcal conjugate (PCV13) vaccine, 13 valent (PREVNAR 13)03/09/2019pneumococcal polysaccharide (PPV23) vaccine, 23 valent (PNEUMOVAX 23)03/23/2020tetanus diphtheria (Td) vaccine, age 7+ yr, 5 Lf tetanus, PF (TENIVAC)10/19/2018 Family History Medical HistoryRelationCommentsAlcohol abuseFatherHeart diseaseFather HypertensionFatherHeart diseaseMotherBone CancerSisterRelationStatusComments FatherDeceasedMotherSisterDeceased Social History Tobacco UseTypesPacks/DayYears UsedDateSmoking Tobacco: FormerCigarettesPassive Smoke Exposure: PastSmokeless Tobacco: Never Tobacco Cessation:Counseling Given: No Alcohol UseStandard Drinks/WeekCommentsNot Currently0 (1 standard drink = 0.6 oz pure alcohol)PHQ-2AnswerDate RecordedPHQ-2 bmvgy93704/22/2022rea Deprivation IndexAnswerDate RecordedNational Score (1-100), lower number is lower risk64 01/23/2023State Score (1-10), lower number is lower ikqr8203Data from: https://www.neighborhoodatlas.medicine.[facility].edu/. Last address used for [address] Sex and Gender InformationValueDate RecordedSex Assigned at BirthNot on fileLegal VilUaze29/02/2012 9:30 AM ESTGender Identity Not on fileSexual OrientationNot on file Last Filed Vital Signs Vital SignReadingTime TakenCommentsBlood Uazndjlv951/7402/20/2023 10:35 AM EST Hlzfo404102/20/2023 10:35 AM SYETfmkphwwrqr41.5 ??C (97.7 ??F)02/20/2023 10:35 AM ESTRespiratory Sems028804/22/2022 10:35 AM ESTOxygen Ccbggvkthg02%02/20/2023 10:35 AM ESTInhaled Oxygen Concentration--Mqvlax027.9 kg (253 lb 3.2 oz)02/20/2023 10:35 AM HAIQfwcrb995.8 cm (5' 10 )02/20/2023 10:35 AM ESTBody Mass Index36.33 02/20/2023 10:35 AM EST Plan of Treatment Health MaintenanceDue DateLast DoneCommentsAbdominal Aortic Aneurysm Screening 1Anxiety Jjwyhlici05/07/1969Depression Bzmbvkuip95/07/1969Lipid Aclejlhua82/07/1986CT Acicbuvtbwsa48/07/1996Cologuard (FIT-DNA)11/20/1995 Ytfbbczpuph08/07/1996Colorectal Cancer Gtjgmqyde56/07/1996Fecal Occult Blood 11/20/19951495Bkdodohvbipvn67/07/1996Shingrix Vaccine (1 of 2)2000Medicare Annual Wellness Visit11/14/2015DTaP,Tdap,Td Vaccine (1 - Tdap)10/20/2018 10/19/2018Advance Directive Sdyualvtua25/01/2025ovid-19 Vaccine ( season)501/05/2021, 06/01/2020, 05/09/2020Influenza Vaccine (#1) 511/, 03/23/2020, 03/23/2020, Additional history existsRSV Vaccine (1 - 1-dose 75+ series)2025Diabetes Rrtpvpgoo25 Pneumococcal Vaccine: 50+Tcqhnyohr22/09/2020, 03/09/2019Hepatitis C Screening Ypuqtjgqj20/11/2023 Procedures Procedure NamePriorityDate/TimeAssociated DiagnosisCommentsHEPATITIS C ANTIBODY IA WITH VEEJNTOZTYNAPqbtymf95/11/2023 12:43 PM EDT Thrombocytopenia (HCC) COMPREHENSIVE METABOLIC YBZCAFvkaqil65/11/2023 12:43 PM EDT Thrombocytopenia (HCC) from Last 3 Months or Most Recently Relevant to Health Maintenance Results * COMP METABOLIC PANEL (01/23/2023 12:43 PM EDT)ComponentValueRef RangeTest MethodAnalysis TimePerformed AtPathologist SignatureProtein, Total6.96.3 - 8.0 g/dL01/24/2023 6:28 AM [facility] LABAlbumin4.73.9 - 4.9 g/dL01/24/2023 6:28 AM [facility] LABCalcium, Total9.08.5 - 10.2 mg/dL01/24/2023 6:28 AM [facility] LABBilirubin, Total1.30.2 - 1.3 mg/dL01/24/2023 6:28 AM [facility] Alkaline Wofdurtfwxz1508 - 113 U/L1 6:28 AM [facility] QBUXLS9031 - 40 U/L1 6:28 AM [facility] VDLEKK0422 - 54 U/L1 6:28 AM [facility] Miqumaz9794 - 99 mg/dL01/24/2023 6:28 AM [facility] Comment: The [place] Diabetes [employer] (ADA) provides guidance for cutoff values for fasting glucose andrandom glucose. The ADA defines fasting as no [...] Standards of Medical Care in Diabetes 2016, [place] [employer]. Diabetes Care. 2016.39(Suppl 1). JOS168 - 24 mg/dL01/24/2023 6:28 AM [facility] Creatinine0.980.73 - 1.22 mg/dL01/24/2023 6:28 AM [facility] TDCQmwfjz345437 - 144 mmol/L1 6:28 AM [facility] LABPotassium4.23.7 - 5.1 mmol/L1 6:28 AM [facility] WEYIdtwjdpr79697 - 105 mmol/L1 6:28 AM [facility] PZDBS10471 - 30 mmol/L1 6:28 AM [facility] LABAnion Dpv529 - 18 mmol/L1 6:28 AM [facility] LABEstimated Glomerular Filtration Rate82>=60 mL/min/1.73m 01/24/2023 6:28 AM [facility] LABComment:Estimated Glomerular Filtration Rate (eGFR) is calculated using the 2020 CKD-EPI creatinine equation. This equation utilizes serum creatinine, sex, and age as parameters. The creatinine assay has traceable calibration to isotope dilution- mass spectrometry. Refer to KDIGO guidelines for clinical interpretation. In patients with unstable renal function, e.g. those with acute kidney injury, the eGFRmay not accurately reflect actual GFR.Specimen (Source)Anatomical Location / LateralityCollection Method / VolumeCollection TimeReceived TimeBloodBLOOD SPECIMEN / UnknownVenipuncture / Jhrigxm2901/23/2023 12:43 PM EDT1 12:43 PM EDT Narrative Authorizing ProviderResult TypeResult StatusDestin Clifton MDLABORATORYFinal ResultPerforming OrganizationAddressCity/State/ZIP CodePhone Number [facility] [address] * HEPATITIS C ANTIBODY IA WITH CONFIRMATION (01/23/2023 12:43 PM EDT)Component ValueRef RangeTest MethodAnalysis TimePerformed AtPathologist SignatureHep C Antibody ASKzhvoyrqXsuowyeh63/12/2023 10:55 AM EDTCWOOSTER COMMUNITY HOSP[facility] LABComment:The result suggests no evidence of active infection with Hepatitis C virus. Should recent infectionbe suspected, repeat testing may be considered 4-6 weeks after this draw.Specimen (Source)Anatomical Location / Laterality Collection Method / VolumeCollection TimeReceived TimeBloodBLOOD SPECIMEN / UnknownVenipuncture / Uzyhqte2001/23/2023 12:43 PM EDT1 12:43 PM EDT Narrative Authorizing ProviderResult TypeResult StatusDestin Clifton MDLABORATORYFinal ResultPerforming OrganizationAddressCity/State/ZIP CodePhone Number [facility] [address] [facility] [address] [place] [address], from Last 3 Months or Most Recently Relevant to Health Maintenance Insurance
--- OUTSIDE RECORDS SUMMARY | 2025-03-15 09:34 | XMS_ITS | Clinical Summary ---
Author Organization [facility] Address [address] [place] [address] Care Team Providers Care Research Laboratory Technician Name Role Phone Patrica Cruz MILITARY EXCHANGE WIRELESS MANAGER Unavailable [phone] Allergies Active AllergyReactionsCriticalityNoted FgkkIvgbnsgoZiqvpsdweQnocqcs72/01/2023 Medications MedicationSigDispense QuantityRefillsLast FilledStart DateEnd DateStatus atorvastatin (Lipitor) 80 MG tablet Take 80 mg by mouth 1 (one) time each day at the same time.Active busPIRone (Buspar) 30 MG tablet Take 30 mg by mouth in the morning and 30 mg before bedtime.Active ezetimibe (Zetia) 10 MG tablet Take 10 mg by mouth 1 (one) time each day at the same time.Active finasteride (Proscar) 5 MG tablet Take 5 mg by mouth 1 (one) time each day at the same time.Active sertraline (Zoloft) 100 MG tablet Take 100 mg by mouth in the morning.Active Gemtesa 75 MG tablet Take 1 tablet by mouth Daily5Active Trelegy Ellipta 200-62.5-25 MCG/ACT aerosol powder 4Active Active Problems ProblemNoted DateDiagnosed DateBPH with urinary rbchsacyetz28/02/2024Former wrihif3908/15/2023Gross haaklsulp72/02/2024Moderate episode of recurrent major depressive feoueeim60/02/6552Ecvpqshlrefu25/02/8256Gyloazbw59/02/2024ost-void wehmgusjv36/02/2292Oxkirghakhs59/02/2024etention of urine08/15/2023Urinary pubxvuphi77/02/2024OME (otitis media with effusion), right09/24/2022Hearing loss of left ear09/24/2022ilateral impacted bgfrlum4309/24/2022hronic maxillary aymgesqyc75/01/2023Enlarged kppiqfdn18/01/2020Generalized anxiety disorder 08/13/2016Basal cell hdqvcymwi19/01/2016High vnifakkpwbh97/26/2010 Resolved Problems ProblemNoted DateDiagnosed DateResolved DateArtificial knee joint present ancer, skin, squamous cellrimary osteoarthritis of right kneeSleep apnea Status post total right knee gtqjlrwxlvy29 Encounters DateTypeDepartmentCare DmajEtdiygatgug24/29/2025 10:35 AM EDTAncillary Procedure [facility] [address] [place] [address] 02/10/2025 10:30 AM EDTOffice Visit [facility] [address] [place] [address] Jr. Sandor Robertson DO Unilateral primary osteoarthritis, left knee (Primary Dx); Acute pain of left knee02/10/2025amboo flowsheet [facility] [address] [place] [address] Jr. Sandor Robertson DO 02/10/2025Travelfrom Last 3 Months Immunizations ImmunizationAdministration DatesNext DuePneumococcal Polysaccharide PPSV23 03/23/2020Td (adult), 5 Lf tetanus toxoid, preservative free, jhcwvhow03/07/2019 Family History Medical HistoryRelationNameCommentsHeart diseaseFatherHypertensionFatherCancer MotherHeart diseaseMotherHypertensionMotherRelationNameStatusCommentsFather DeceasedMotherDeceased Social History Tobacco UseTypesPacks/DayYears UsedDateSmoking Tobacco: FormerCigarettes1.519 08/13/1964 - 08/14/1983Smokeless Tobacco: Never Tobacco Cessation:Counseling Given: Not Answered Comments:I have adult onset asthma as a result of my smoking. Alcohol UseStandard Drinks/WeekCommentsNot Currently0 (1 standard drink = 0.6 oz pure alcohol)quit drinking in 1978; caffeine intake: 1-2 cups per daySex and Gender InformationValueDate RecordedSex Assigned at BirthNot on fileLegal Sex Male06/27/2022 7:21 PM EDTGender IdentityNot on fileSexual OrientationNot on file Last Filed Vital Signs Vital SignReadingTime TakenCommentsBlood Kocnzaql484/8205 11:08 AM EDT Pulse--Temperature--Respiratory Rate--Oxygen Saturation--Inhaled Oxygen Concentration--Cnoyzy444 kg (246 lb 12.8 oz)08/16/2023 11:08 AM OMOMdhgci678.8 cm (5' 10 )08/16/2023 11:08 AM EDTBody Mass Index35.4105 11:08 AM EDT Plan of Treatment DateTypeDepartmentCare Team (Latest Contact Info)Shfcnhijuxb63/29/2025 10:00 AM ESTOffice Visit [facility] [address] [place] [address] Fabio Park, MILITARY EXCHANGE WIRELESS MANAGER [address] [place], [place] [phone] 05/31/2025 10:45 AM ESTOffice Visit [facility] [address] [facility] [place] [place] [address] Fabio Park, MILITARY EXCHANGE WIRELESS MANAGER [address] [place], [place] [phone] Health MaintenanceDue DateLast DoneCommentsCT Irrfsqmtdflu47/07/1951Colonoscopy 1Colorectal Cancer Vjqzfwvhf80/07/1951FIT-DNA1950FIT1950 FOBT1950 3474Weiykabsdulyp25/07/1951neumococcal Vaccine: 65+ Years (2 of 2 - PCV)COVID-19 Vaccine ( season)2024 04/16/2021, 06/01/2020, 05/09/2020Influenza Vaccine (#1)511/, 03/23/2020, 03/09/2019, Additional history exists Procedures Procedure NamePriorityDate/TimeAssociated DiagnosisCommentsXR KNEE 1-2 VIEWS AKFOVjiymwj10/29/2025 10:32 AM EDT Acute pain of left knee from Last 3 Months Results * XR knee 1 or 2 views left (02/10/2025 10:32 AM EDT)Anatomical RegionLaterality ModalityLower Extremities, KneeLeftRadiographic ImagingSpecimen (Source) Anatomical Location / LateralityCollection Method / VolumeCollection Time Received Time Narrative 02/10/2025 11:04 AM EDT Imaging Result: AP and lateral views of left knee showed severe varus deformity with uwxe-jr-dmcr articulation to the medial joint line, flattening of the articular surfaces to the medial joint line lateral joint line and patellofemoral joint. ??Subchondral sclerosis was noted at the medial joint line surfaces as well as the lateral joint line and patellofemoral joint. ?? Marginal osteophytic formation was noted tricompartmentally. ??There is no evidence of fracture or dislocation. ??Impression: ??severe degenerative joint disease left knee with varus deformity Authorizing ProviderResult TypeResult StatusJr. Sandor Robertson DOI XR PROCEDURESFinal Result from Last 3 Months Insurance * Guarantor: Sandor Ackerman TypeRelation to PatientDate of PhoneBilling AddressPersonal/CaijshMlzc50/[birth year][address] [address] Care Teams Team MemberRelationshipSpecialtyStart DateEnd Date Patrica Cruz NP [address] [place] [phone] Nurse Sfgrjolgihiw85/20/25
--- OUTSIDE RECORDS SUMMARY | 2025-03-15 09:44 | XMS_ITS | CCD ---
Author Organization [facility] Care Team Providers Care Net Web Developer Name Role Phone REQUEST, DR NONE LISTED Attending Unavaila ble REQUEST, NONE LISTED Consulting Unavaila ble REQUEST, DR NONE LISTED Admitting Unavaila ble ANTHONY, PATRICA Primary Care Unavailable ANTHONY, PATRICA Attending Unavailable KAPFORREST, PATRICA Primary Care Unavailable KAPFORREST, PATRICA Admitting Unavailable MIGUEL WESTFALL, DR WILL Carmichael Consulting Unavailabl e MIGUEL WESTFALL, DR WILL Carmichael Admitting Unavailabl e ANTHONY, PATRICA Primary Care Unavailable MIGUEL WESTFALL, DR WILL Carmichael Attending Unavailabl e KAPFORREST, PATRICA Consulting Unavailable KAPFORREST, PATRICA Primary Care Unavailable KAPPATRICA CADE Admitting Unavailable KAPPATRICA CADE Attending Unavailable REQUEST, NONE LISTED Admitting Unavaila ble REQUEST, NONE LISTED Attending Unavaila ble REQUEST, NONE LISTED Consulting Unavaila ble ANTHONY, APTRICA Primary Care Unavailable PATRICA CRUZ Primary Care Physician Patrica Cruz Unavailable Patrica Cruz Unavailable GUICHO Cruz Primary Care Provider MD Genaro Sheldon Attending Provider Unavailable Primary Care Provider Unavailabl e BERNARDINO CLIFTONRA Referring Unavailable BERNARDINO CLIFTONRA Attending Unavailable BERNARDINO CLIFTONRA Attending Unavailable GUICHO Cruz Primary Care Provider GUICHO Cruz Attending Provider [phone] GUICHO Cruz Primary Care Provider GUICHO Cruz Attending Provider DO Claire Sanchez Primary Care Provider DeWilde, DO Claire Referring Provider [phone] MD Adi Lara Attending Provider DEKSLDE, CLAIRE Primary Care Physician Elia HUERTA Attending Unavailable Elia HUERTA Attending Unavailable Orzech, Haydee X Attending Unavailable Elia HUERTA Admitting Unavailable Elia HUERTA Attending Unavailable Elia HUERTA Attending Unavailable Anthony MADDOX, Patrica Vides Primary Care Provider DeWilde DO, Claire Primary Care Provider DeWilde DO, Claire Attending Provider [phone] DeWilde DO, Claire Referring Provider [phone] Adi Lara MD Attending Provider DeWilde DO, Claire Primary Care Provider DeWilde DO, Claire Other Provider [phone] Christina WADDELL, Armani Kuhn Attending Provider [phone] DeWilde DO, Claire Attending Provider Adi Lara MD Attending Provider Pito WADDELL, Genaro Ahmadi Attending Provider [phone] PATRICA GARCIA Attending Unavailable Anthony MADDOX, Patrica Vides Primary Care Provider DeWilde DO, Claire Primary Care Provider DeWilde DO, Claire Attending Provider DeWilde, Claire Attending Unavailable DeWilde, Claire Primary Care Unavailable DeWilde, Claire Admitting Unavailable DeWilde, Claire Attending Unavailable DeWilde, Claire Primary Care Unavailable DeWilde, Claire Admitting Unavailable DeWilde, Claire Referring Unavailable DeWilde, Cliare Primary Care Unavailable Adi Lara Attending Unavailabl e Adi Larakaryn Admitting Unavailabl e DeWilde, Claire Admitting Unavailable DeRosendoe, Claire Attending Unavailable Bryson, Claire Primary Care Unavailable Patrica Cruz NP Unavailable Patrica Cruz Primary Care Unavailable RACHEL ROBERTSON Attending Unavailable RACHEL ROBERTSON Admitting Unavailable RACHEL ROBERTSON Attending Unavailable RACHEL ROBERTSON Admitting Unavailable Patrica Cruz Primary Care Unavailable MANUEL BIRCH Attending Unavailable MANUEL BIRCH Referring Unavailable JR. ROBERTSON GEORGE C Attending Unavaila artem ROBERTSON JR., RACHEL Jean Referring Unavaila ble Allergies Allergy ClassificationReported Allergen(s)Allergy TypeDate of OnsetReaction(s) FacilityAdrenergic Antagonists (3 sources)Doxazosin; Translations: [Doxazosin]Drug Fqjrmtc73-10-6889Rlwtygoessm (disorder)[facility] (20 sources)Doxazosin; Translations: [doxazosin]Drug Jkjuscw76-95-4742 Anaphylaxis (disorder), anaphylaxisMount Olive Peixe U[place]ano Other (7 sources)DoxazosinDrug Mrpmgxq97-53-7577XxscszrHSBT [employer] Work Phone: (1 source)DoxazosinDrug Ozyqjde76-68-2733XdcoadoruOur [facility] Of [facility] Medications Current Medications MedicationDrug Class(es)DatesSig (Normalized)Sig (Original)[id number] 200 actuat albuterol 0.09 mg/actuat metered dose inhaler (20 sources)beta2-Adrenergic AgonistStart: 91-20-2097igzj 2 puff(s) by inhalation every four hours as needed for coughAlbuterol Sulfate 90 mcg/actuation HFA aerosol inhaler Active INHALATION July 08, 2023 12:00am Fr eeTextSig: TAKE 2 PUFFS NEEDED EVERY 4 HOUR FOR SHORTNESS OF BREATH, WHEEZING, OR COUGH; Note: Source Status: Taking; Refills: 2; Qty: 8.5 Each; Provider: Anthony Vides Complies with drug therapyAlbuterol Sulfate HFA 108 (90 Base) MCG/ACT TAKE 2 PUFFS NEEDED EVERY 4 HOUR FOR SHORTNESS OF BREATH, WHEEZING, OR COUGH for 30 ActiveAlbuterol Sulfate HFA 108 (90 Base) MCG/ACT TAKE 2 PUFFS NEEDED EVERY 4 HOUR FOR SHORTNESS OF BREATH, WHEEZING, OR COUGH for 30 Activealbuterol HFA (VENTOLIN HFA) 90 mcg/actuation inhaler Inhale 2 Puffs as instructed. 0 ActiveAlbuterol Sulfate HFA 108 (90 Base) MCG/ACT TAKE 2 PUFFS NEEDED EVERY 4 HOUR FOR SHORTNESS OF BREATH, WHEEZING, OR COUGH for 30 Active Ventolin HFA prn ActiveComment on above:Inhale 2 Puffs as instructed. amitriptyline hydrochloride 25 mg oral tablet (7 sources)Tricyclic AntidepressantStart: 12-97-6784efvvprrfwlidk 25 mg Tab 25 mg = 1 tab(s) Start Date: 11/10/24 Status: Ordered Repeat number: 1atorvastatin 80 mg oral tablet (20 sources)HMG-CoA Reductase InhibitorStart: 10-07-2023 End: 82-43-4836sutm 1 tablet by mouth once dailyAtorvastatin 80 mg tablet Active 0 .ROUTE .COMPLEX 90 September 02, 2024 9:23am TAKE 1 TABLET BY MOUTH EVERY DAY Complies with drug therapyStart: 06-26-2019 End: 77-63-6028Yjyllmnbpfgw 80 mg tablet Discontinued 1 TAB PO Daily July 08, 2023 12:00am October 07, 2023 2:03pm FreeTextSig: TAKE 1 TABLET DAILY Orally Once a day; Note: Source Status: Taking; Refills: 3; Provider: Anthony Vides Comment on above:Take 80 mg by mouth once daily.azithromycin 250 mg oral tablet (5 sources)Macrolide AntimicrobialStart: 50-98-8795Bsqqcbmdx Z-Arya 250 MG 2 tablets on the first day, then 1 tablet daily for 4 days Orally Once a dayfor 5 day(s) Mar, ActiveBIPAP Machine Auto Pap Peak 20 PS 4 min 8 (14 sources)Start: 60-32-1725AWXOL Machine Auto Pap Peak 20 PS 4 min 8 as directed nightly for Download 1 month, fax to office Oct, ActiveBreo Ellipta 200 mcg-25 mcg/inh inhalation powder (6 sources)Start: 81-60-3196mufk 1 puff(s) by inhalation once dailyBreo Ellipta 200 mcg-25 mcg/inh inhalation powder puff(s), Inhalation, Daily, Refill(s) 0 Start Date: 06/26/19 Status: Orderedferrous sulfate 325 mg oral tablet (9 sources)Start: 64-80-3933rank 1 mg by mouth three times dailyferrous sulfate 325 mg Tab mg tab(s), Oral, TID, Refills(s) 0 Start Date: 06/26/19 Status: Orderedtake 1 tablet by mouth once dailyferrous sulfate 325 mg (65 mg iron) tablet Take 325 mg by mouth once daily. 0 ActiveComment on above:Take 325 mg by mouth once daily.Cxpgducwfxw-Bcnrftayb-Vzfrpfoe (9 sources)Start: 34-80-2128Fwvkfnypayq-Umeclidin-Vilanter (Trelegy Ellipta) 200-62.5-25 mcg blister with device Active 1 INH INHALATION Daily January 24, 2024 12:00am Complies with drug therapyStart: 01-24-2024 Gedhmiycxqz-Zkuwuycwm-Szuwmyxb (Trelegy Ellipta) 200-62.5-25 mcg blister with device Active 1 INH INHALATION Daily January 23, 2024 11:00pmStart: 01-24-2024 Bogzbscoqdx-Hievivxdu-Zpqmxfsd (Trelegy Ellipta) 200-62.5-25 mcg blister with device Active 1 INH INHALATION Daily January 24, 2024 12:00amGemtesa 75 MG tablet (6 sources)Start: 18-82-1012mvhw 1 tablet by mouth once dailyGemtesa 75 MG tablet Take 1 tablet by mouth Daily 05/21/2024 Activeibuprofen 200 mg oral tablet (20 sources)Nonsteroidal Anti-inflammatory DrugStart: 26-15-9646vgze 1 tablet by mouth every six hours as neededIbuprofen 200 mg tablet Active 200 MG PO Every 6 hours as needed July 08, 2023 12:00am Complies with drug therapyIbuprofen Uumipe72 hr mirabegron 50 mg extended release oral tablet (1 source)beta3-Adrenergic AgonistStart: 04-20-2024 End: 38-64-8928lgjn 1 tablet by mouth once dailymirabegron 50 mg oral tablet, extended release 50 mg = 1 tab(s), Oral, Daily, X 30 day(s), # 30 tab(s), Refills(s) 11, Pharmacy: [facility]/pharmacy #[id number], 179, cm, 04/20/24 12:06:00 EST, Height/Length Dosing, 111.2, kg, 04/20/24 12:06:00 EST, Weight Dosing Start Date: 04/20/24 Stop Date: 04/15/25 Status: Orderedpolymyxin b 40226 unt/ml / trimethoprim 1 mg/ml ophthalmic solution (4 sources)Dihydrofolate Reductase Inhibitor Antibacterial, Polymyxin-class AntibacterialStart: 09-24-2024 End: 29-29-9615Tpabjvxnd B Sulf-Trimethoprim 10,000 unit- 1 mg/mL drops Active 1 DROPS EYE-RIGHT Every three hours10 October 06, 2024 11:26am while awake; do not exceed 6 doses in 24 hours Complies with drug therapysertraline 100 mg oral tablet (20 sources)Serotonin Reuptake InhibitorStart: 07-08-2023 End: 01-22-0387jfft 1 tablet by mouth twice dailySertraline 100 mg tablet Active 100 MG PO Twice daily 180 90 March 09, 2024 10:48am Complies with drug therapyStart: 38-20-9982vhpx 1 mg by mouth once dailysertraline 100 mg Tab mg tab(s), Oral, Daily, Refills(s) 0 Start Date: 06/26/19 Status: Ordered Repeat number: 1Comment on above:Take 100 mg by mouth once daily.tamsulosin hydrochloride 0.4 mg oral capsule (20 sources)alpha-Adrenergic BlockerStart: 99-99-4477thxd 1 capsule by mouth once dailytamsulosin 0.4 mg Cap 0.4 mg = 1 cap(s), Oral, Daily, # 90 cap(s), Refills(s) 3, Pharmacy: [facility]/pharmacy #[id number], 174, cm, 09/05/21 10:55:00 EDT, Height/Length Dosing, 109.1, kg, 09/05/21 10:55:00 EDT, Weight Dosing Start Date: 08/19/22 Status: OrderedComment on above:Take 0.4 mg by mouth once daily. Trelegy Ellipta 200 mcg-62.5 mcg-25 mcg/inh inhalation powder (6 sources)Start: 60-00-9254Ybokfez Ellipta 200 mcg-62.5 mcg-25 mcg/inh inhalation powder 1 inh, Refill(s) 0 Start Date: 04/20/24Status: Ordered Repeat number: 1Start: 29-85-5876Zpeblez Ellipta 200 mcg-62.5 mcg-25 mcg/inh inhalation powder 1 inh, Refill(s) 0 Start Date: 04/20/24Status: OrderedStart: 10-14-2023 Trelegy Ellipta 200 mcg-62.5 mcg-25 mcg/inh inhalation powder Refill(s) 0 Start Date: 10/14/23 Status: Ordered Repeat number: 1Start: 63-39-5566Alpvxes Ellipta 200 mcg-62.5 mcg-25 mcg/inh inhalation powder Refill(s) 0 Start Date: 10/14/23 Status: OrderedTrelegy Ellipta 200-62.5-25 MCG/ACT aerosol powder (6 sources)Start: 14-39-7612Twbyafa Ellipta 200-62.5-25 MCG/ACT aerosol powder 10/08/2023 ActiveVentolin HFA 90 mcg/inh Aerosol (10 sources)Start: 92-56-8460lide 1 puff(s) by inhalation every six hours Ventolin HFA 90 mcg/inh Aerosol puff(s), Inhalation, q6hr, Refill(s) 0 Start Date: 06/26/19 Status: Ordered Repeat number: 1Start: 65-84-5884isrs 1 puff(s) by inhalation every six hoursVentolin HFA 90 mcg/inh Aerosol puff(s), Inhalation, q6hr, Refill(s) 0 Start Date: 06/26/19 Status: OrderedVibegron (6 sources)Start: 92-00-6004icif 1 tablet by mouth once dailyVibegron (Gemtesa) 75 mg tablet Active 75 MG PO Daily July 27, 2024 12:00am Complies with drug therapyStart: 97-11-5974hxjq 1 tablet by mouth once dailyVibegron (Gemtesa) 75 mg tablet Active 75 MG PO Daily July 27, 2024 12:00amvibegron 75 MG Oral Tablet (1 source)Start: 01-84-0441nhio 1 tablet by mouth once dailyvibegron 75 mg oral tablet 75 mg = 1 tab(s), Oral, Daily, # 30 tab(s), Refills(s) 11, Pharmacy: [facility]/ pharmacy #[id number], 179, cm, 11/10/24 15:20:00 EDT, Height/Length Dosing, 107.7, kg, 11/10/24 15:20:00 EDT, Weight Dosing Start Date: 11/10/24 Status: Ordered Quantity: 30.0 Unit: tab(s) Repeat number: 12{20 (nirmatrelvir 150 MG Oral Tablet) / 10 (ritonavir 100 MG Oral Tablet) } Pack [Paxlovid 5-Day] (1 source)Start: 36-45-1292Fajrutdw 20 x 150 MG & 10 x 100MG as directed Orally as directed BID x 5 days for 5 days Dec, Active Completed/Discontinued Medications MedicationDrug Class(es)DatesSig (Normalized)Sig (Original)acetaminophen 500 mg oral capsule (20 sources)Start: 07-08-2023 End: 15-10-7511tkgk 1 capsule by mouth every six hours as neededAcetaminophen 500 mg capsule Discontinued 500 MG PO Every 6 hours March 11, 2024 3:04pm September 16, 2024 3:37pm FreeTextSi capsule as needed Orally every 6 hrs; Note: Source Status: Taking; Provider: Anthony Burciaga ( )Start: 44-98-7349uaax 1 mg by mouth every six hoursacetaminophen 500 mg Tab mg tab(s), Oral, q6hr, Refills(s) 0 Start Date: 06/26/19 Status: Orderedtake 1 capsule by mouth every six hoursAcetaminophen 500 MG 1 capsule as needed Orally every 6 hrs ActiveComment on above:Take 500 mg by mouth every 6 hours as needed.busPIRone hydrochloride 30 mg oral tablet (20 sources)Start: 08-14-2016 End: 06-54-8557jmiu 1 tablet by mouth twice dailyBuspirone 30 mg tablet Discontinued 1 TAB PO Twice daily July 08, 2023 12:00am March 26, 2024 10:00am FreeTextSig: TAKE 1 TABLET BY MOUTH TWICE A DAY; Note: Source Status: Taking; Refills: 6;Qty: 180 Tablet; Provider: Anthony Burciaga ( ) take 1 tablet by mouth once dailybusPIRone HCl 30 mg tablet Take 30 mg by mouth once daily. 0 ActiveComment on above:Take 30 mg by mouth once daily.cephalexin 500 mg oral tablet (3 sources)Cephalosporin AntibacterialStart: 24-49-9267cgiw 1 tablet by mouth every eight hoursCephalexin 500 MG 1 tablet Orally every 8 hrs for 7 days August, Not-Takingciprofloxacin 500 mg oral tablet (3 sources)Quinolone AntimicrobialStart: 57-05-1563fbwo 1 tablet by mouth once dailyCipro 500 mg Tab 500 mg = 1 tab(s), Oral, Daily, take one tab day before procedure and one tab after procedure, # 2 tab(s), Refills(s) 0, Pharmacy: [facility]/pharmacy #[id number], 174, cm, 11/12/22 12:36:00 EDT,Height/Length Dosing, 112, kg, 11/12/22 12:36:00 EDT, Weight Dosing Start Date: 11/12/22 Status: Ordered ezetimibe 10 mg oral tablet (20 sources)Dietary Cholesterol Absorption InhibitorStart: 06-26-2019 End: 12-81-5855xyqc 1 tablet by mouth once dailyEzetimibe 10 mg tablet Discontinued 1 TAB PO Daily July 08, 2023 12:00am February 03, 2024 9:09am FreeTextSig: TAKE 1 TABLET BY MOUTH EVERY DAY; Note: Source Status: Start; Refills: 2; Qty: 90 Tablet; Provider: Anthony Burciaga ( )Comment on above:Take 10 mg by mouth once daily.finasteride 5 mg oral tablet (20 sources)5-alpha Reductase InhibitorStart: 09-05-2021 End: 43-50-8770ssgl 1 tablet by mouth once dailyFinasteride 5 mg tablet Discontinued 1 TAB PO Daily July 08, 2023 12:00am March 17, 2024 8:29am FreeTextSig: TAKE 1 TABLET BY MOUTH ONCE DAILY; Note: Source Status: Taking; Refills: 3; Qty: 90Tablet; Provider: Anthony Burciaga ( )Comment on above:Take 5 mg by mouth once daily.Fluticasone Furoate-Vilanterol (20 sources)Corticosteroid, beta2-Adrenergic AgonistStart: 07-08-2023 End: 93-31-2103Lzgnlueaxjv Furoate-Vilanterol (Breo Ellipta) 200-25 mcg/dose blister with device Discontinued INHALATION July 07, 2023 11:00pm January 24, 2024 10:29amStart: 07-08-2023 End: 97-06-2059Pjzcgkzigwk Furoate-Vilanterol (Breo Ellipta) 200-25 mcg/dose blister with device Discontinued INHALATION July 08, 2023 12:00am January 24, 2024 11:29amStart: 51-10-9060Qxbmdxkndwu Furoate-Vilanterol (Breo Ellipta) 200-25 mcg/dose blister with device Active INHALATIONJuly 08, 2023 12:00am End: 41-25-4346mlui 1 puff(s) by inhalation once dailyFluticasone Furoate- Vilanterol (Breo Ellipta) 200-25 MCG/ACT aerosol powder Inhale 1 puff 1 (one) ti me each day at the same time. 06/01/2024 Discontinued (Therapy completed)take 1 puff(s) by inhalation once dailyBreo Ellipta 200-25 MCG/ACT INHALE 1 PUFF INTO THE LUNGS EVERY DAY for 30 Activefluticasone-vilanterol (BREO ELLIPTA) 200-25 mcg/dose inhaler Inhale 1 Inhalation as instructed once daily. 0 ActiveComment on above:Inhale 1 Inhalation as instructed once daily.12 hr guaiFENesin 600 mg extended release oral tablet (18 sources)Start: 07-08-2023 End: 25-36-0349dvry 1 tablet by mouth twice daily, then take 1 tablet by mouth every twelve hoursGuaifenesin (Mucinex) 600 mg tablet extended release 12hr Discontinued 600 MG PO Twice daily July 08, 2023 12:00am July 27, 2024 11:46am End: 72-38-8638rmkoWPMpuhr (Mucinex) 600 MG 12 hr tablet Take 600 mg by mouth every 12 (twelve) hours 06/01/2024 Discontinued (Therapy completed)Mucinex Not-Taking/PRNMucinex Activesolifenacin succinate 5 mg oral tablet (11 sources)Cholinergic Muscarinic AntagonistStart: 01-24-2024 End: 41-93-2746cqeh 1 tablet by mouth once dailySolifenacin (Vesicare) 5 mg tablet Discontinued 5 MG PO Daily January 24, 2024 12:00am July 27, 2024 11:46amStart: 76-18-7249ydakgqfakod 10 mg Tab 10 mg = 1 tab(s), Oral, Daily, to start after completion of 1 month 5 mg dose, # 30 tab(s), Refills(s) 1, Pharmacy: [facility]/pharmacy #[id number], 179, cm, 08/13/23 9:15:00 EDT, Height/Length Dosing, 109, kg, 08/13/23 9:15:00 EDT, Weight Dosing Start Date: 09/12/23 Status: OrderedStart: 08-13-2023 End: 37-00-3567pgci 1 tablet by mouth once dailysolifenacin 5 mg Tab 5 mg = 1 tab(s), Oral, Daily, X 30 day(s), # 30 tab(s), Refills(s) 0, Pharmacy: [facility]/pharmacy #[id number], 179, cm, 08/13/23 9:15:00 EDT, Height/Length Dosing, 109, kg, 08/13/23 9:15:00EDT, Weight Dosing Start Date: 08/13/23 Stop Date: 09/12/23 Status: Ordered Problems Active Problems Problem ClassificationProblemDateDocumented DateEpisodic/Chronic Administrative/social admission (4 sources)First encounter by subject; Translations: [Persons encountering health services in other specified circumstances]03-29-0430HmpywehoZkggzfc disorders (20 sources)Generalized anxiety disorder; Translations: [Generalized anxiety disorder]Onset: 08-13-2016 Resolved: 279608-19-8494SztdbeuFcruuh (20 sources)Asthma; Translations: [Unspecified asthma, uncomplicated]Onset: 02-22-2021 Resolved: 793743-42-3437InwcqesJsaviqe and circulatory congenital anomalies (20 sources)Congenital malformation of aorta unspecified; Translations: [Abnormality of abdominal aorta]Onset: 02-22-2021 Resolved: 35-24-7885RduahfuHwfdxqg obstructive pulmonary disease and bronchiectasis (1 source)Bronchitis, not specified as acute or chronicEpisodicCoagulation and hemorrhagic disorders (20 sources)Platelet count below reference range; Translations: [Thrombocytopenia, unspecified]Onset: 02-22-2021 Resolved: 66-19-6932LbideyuRmvluqbi mellitus without complication (20 sources)Newly diagnosed diabetes; Translations: [Type 2 diabetes mellitus without complications]ChronicDisorders of lipid metabolism (20 sources)Pure hypercholesterolemia, unspecified; Translations: [Hyperlipidemia]Onset: 09-07-2009 Resolved: 90-76-1862IkdsbvmGuosuauoezheg symptoms and ill-defined conditions (20 sources)Incontinence; Translations: [Post-micturition incontinence ]Onset: 299606-33-0391LqwyacrMlttqagl; including migraine (12 sources)Tension-type headache; Translations: [Tension-type headache, unspecified, not intractable]65-80-2524LjxnklcKsarmusuuwc of prostate (20 sources)Benign prostatic hyperplasia with lower urinary tract symptoms; Translations: [Benign prostatic hypertrophy with outflow obstruction]Onset: 08-14-2019 Resolved: 41-16-6454ZgizlduXwhlgcgbbgmbn and screening for infectious disease (1 source)Encounter for immunizationEpisodicInflammation; infection of eye (except that caused by tuberculosis or sexually transmitteddisease) (2 sources)Conjunctivitis of right eye caused by bacteria; Translations: [Unspecified conjunctivitis]08-50-8387CotpbguvSlab disorders (20 sources)Recurrent major depressive episodes, moderate ; Translations: [Major depressive disorder, recurrent, moderate]Onset: 02-22-2021 Resolved: 490844-64-3680QleajelEfkwzvpnlmvfsh (19 sources)Arthritis; Translations: [Osteoarthritis of right knee joint]Onset: 09-13-2022 Resolved: 196641-92-0647ZmtykxgWqioa circulatory disease (1 source)Elevated blood-pressure reading, without diagnosis of hypertension EpisodicOther diseases of bladder and urethra (4 sources)Detrusor overactivity; Translations: [Overactive bladder]Onset: 87-44-5820AoicqjpGsgwx diseases of bladder and urethra (4 sources)Overactive hxjxajp52-10-7375YatfcetPsagg diseases of kidney and ureters (2 sources)Urinary tract obstruction; Translations: [Other obstructive and reflux uropathy]Onset: 14-82-3708YgjsevppOxtqr ear and sense organ disorders (4 sources)Hearing loss in left ear; Translations: [Unspecified hearing loss, left ear]Onset: 454568-73-7558JfqriheFdoqz ear and sense organ disorders (3 sources)Hearing loss of left ear; Translations: [Unspecified hearing loss, left ear]Onset: 383280-74-2095GfsfhjaZhnlt liver diseases (7 sources)Increased bilirubin level; Translations: [Unspecified jaundice] 30-91-9766FqowpimxLboub liver diseases (5 sources)Unspecified jaundice; Translations: [Disorders of bilirubin excretion]68-24-9469AjnxcrgwJsewn nervous system disorders (4 sources)Carpal tunnel syndrome of left wrist; Translations: [Carpal tunnel syndrome, left upper limb]38-17-7145RltatdwPxghm nervous system disorders (6 sources)Paresthesia of left upper limb; Translations: [Paresthesia of skin] 81-95-9392ImalsexvMhcqg non-traumatic joint disorders (4 sources)Pain in right knee; Translations: [Pain in joint, lower leg] 51-17-4744AtsdryrdMfamb nutritional; endocrine; and metabolic disorders (20 sources)Body mass index 30+ - obesity; Translations: [Body mass index (BMI) 36.0-36.9, adult]88-58-6054UrybztuRipmb nutritional; endocrine; and metabolic disorders (2 sources)Body mass index (BMI) 36.0-36.9, adultOnset: 02-22-2021 Resolved: 91-11-2388RybcafyFzsoj nutritional; endocrine; and metabolic disorders (4 sources)Obesity, unspecifiedChronicOther screening for suspected conditions (not mental disorders or infectious disease) (5 sources)Encounter for screening for malignant neoplasm of prostate; Translations: [Other specified abnormalfindings of blood chemistry]Onset: 08-24-2021 Resolved: 71-67-7480ZnotubbmXgkoz upper respiratory disease (20 sources)Allergic rhinitis; Translations: [Allergic rhinitis, unspecified] 24-01-4626MqojynlUvpfe upper respiratory disease (1 source)Allergic rhinitis, unspecified; Translations: [Allergic rhinitis, cause unspecified]23-97-6409NwrrmdbCgluk upper respiratory infections (20 sources)Chronic maxillary sinusitis; Translations: [Chronic maxillary sinusitis]Onset: 999158-10-4549SuwiqstXjgysyrw codes; unclassified (20 sources)Obstructive sleep apnea syndrome; Translations: [Obstructive sleep apnea (adult) (pediatric)]80-87-2911UzyrvwkDarmplzp codes; unclassified (12 sources)Obstructive sleep apnea (adult) (pediatric); Translations: [Obstructive sleep apnea (adult)(pediatric)]Onset: 02-22-2021 Resolved: 42-59-8824CnkgwiiBfxiziec codes; unclassified (4 sources)Insomnia; Translations: [Insomnia, unspecified]86-42-9728Tgqvebfk Spondylosis; intervertebral disc disorders; other back problems (7 sources)Cervical arthritis; Translations: [Spondylosis without myelopathy or radiculopathy, cervical region]Onset: 460674-44-3675YnzesseZluplkckzonp (5 sources)Patient encounter kpeqvl73-51-6077 Past or Other Problems Problem ClassificationProblemDateDocumented DateEpisodic/ChronicDiabetes mellitus without complication (20 sources)Prediabetes; Translations: [Prediabetes]Onset: 09-08-2020 Resolved: 169799-52-8289QlktthvzPosbfmlpjvgli symptoms and ill-defined conditions (20 sources)Nocturia; Translations: [Nocturia]Onset: 87-44-0862HdvgqyryMcbiy connective tissue disease (7 sources)Artificial knee joint present; Translations: [Presence of unspecified artificial knee joint]Onset: 09-13-2022 Resolved: 327264-38-1899SafmixjLymhl connective tissue disease (7 sources)History of total knee arthroplasty; Translations: [Presence of right artificial knee joint]Onset: 09-13-2022 Resolved: 997132-23-2469ActmzbwBrqro ear and sense organ disorders (7 sources)Impacted cerumen of bilateral ears; Translations: [Impacted cerumen, bilateral]Onset: 878173-41-9823RfdiqssmUrnee nervous system disorders (5 sources)Paresthesia of skin; Translations: [Disturbance of skin sensation] Onset: 693957-06-8121XwpchtzxDjxwx non-epithelial cancer of skin (20 sources)Basal cell carcinoma of skin; Translations: [Basal cell carcinoma of skin, unspecified]Onset: 08-14-2015 Resolved: [id number] media and related conditions (7 sources)Otitis media; Translations: [Unspecified nonsuppurative otitis media, right ear]Onset: [id number] codes; unclassified (7 sources)Sleep apnea; Translations: [Sleep apnea, unspecified]Onset: 09-13-2022 Resolved: [id number] and history of mental health and substance abuse codes (17 sources)Ex-smoker; Translations: [Personal history of nicotine dependence] Onset: 535351-02-0380PcelpqpcEhdosnvctvwm (2 sources)Ucsf15-79-0570Dtekt infection (2 sources)COVID-19 Results Test NameValueInterpretationReference RangeFacilityXR Knee - left 1 or 2 Viewson 29-34-9658Rptjhvt Result: AP and lateral views of left knee showed severe varus deformity with lqcm-jw-teye articulation to the medial joint line, flattening of the articular surfaces to the medial joint line lateral joint line and patellofemoral joint. Subchondral sclerosis was noted at the medial joint line surfaces as well as the lateral joint line and patellofemoral joint. Marginal osteophytic formation was noted tricompartmentally. There is no evidence of fracture or dislocation. 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 Your Care Team Attending Physician - PATRICA GARCIA PA-C Primary Care Physician - CLAIRE SANCHEZ DO This Is Your Medications List finasteride (finasteride 5 mg Tab) vibegron (vibegron 75 mg oral tablet) Contact prescribing physician if questions or concerns albuterol (Ventolin HFA 90 mcg/inh Aerosol) amitriptyline (amitriptyline 25 mg Tab) atorvastatin (atorvastatin 80 mg Tab) busPIRone (busPIRone 30 mg oral tablet) ezetimibe (Zetia 10 mg Tab) fluticasone/umeclidinium/vilanterol (Trelegy Ellipta 200 mcg-62.5 mcg-25 mcg/inh inhalation powder) fluticasone/umeclidinium/vilanterol (Trelegy Ellipta 200 mcg-62.5 mcg-25 mcg/inh inhalation powder) sertraline (Zoloft 100 mg Tab) sertraline (sertraline 100 mg Tab) [Image Removed: STOP]Stop taking these medications acetaminophen (acetaminophen 500 mg Tab) mirabegron (mirabegron 50 mg oral tablet, extended release) Procedures Performed TURP - Transurethral resection of prostate (04/18/2023), Cystoscopy (12/25/2022), Urodynamics (12/25/2022), Nasal sinus procedure (02/2017), Excision of basal cell carcinoma (08/2016), Cataract surgery (02/2016), Colonoscopy (2015), Arthroscopy of knee (06/2014), Pharyngeal operation for obstructive sleep apnea and snoring (1999), Tonsillectomy. Discharge Vitals Height 179 cm Height 70 in Weight 107.7 kg Weight 237.438 lb BMI 33.61 Medications What How Much When Instructions Unchanged finasteride (finasteride 5 mg Tab) 1 Tablets By Mouth Every day Pickup at [facility]/pharmacy #[id number] Unchanged vibegron (vibegron 75 mg oral tablet) 1 Tablets By Mouth Every day Pickup at [facility]/pharmacy#[id number] Unchanged albuterol (Ventolin HFA 90 mcg/ inh Aerosol) Inhalation Every 6 hours Contact prescribingphysician if questions or concerns Unchanged amitriptyline (amitriptyline 25 mg Tab) 1 Tablets Contact prescribing physician if questions or concerns Unchanged atorvastatin (atorvastatin 80 mg Tab) 1 Tablets By Mouth Every day Contact prescribing physician if questions or concerns Unchanged busPIRone (busPIRone 30 mg oral tablet) 1 Tablets By Mouth 2 times a day Contact prescribing physician if questions or concerns Unchanged ezetimibe (Zetia 10 mg Tab) 1 Tablets By Mouth Every day Contact prescribing physician ifquestions or concerns Unchanged fluticasone/ umeclidinium/ vilanterol (Trelegy Ellipta 200 mcg-62.5 mcg-25 mcg/ inh inhalation powder) Contact prescribing physician if questions or concerns Unchanged fluticasone/ umeclidinium/ vilanterol (Trelegy Ellipta 200 mcg-62.5 mcg-25 mcg/ inh inhalation powder) 1 Inhalation Contact prescribing physician if questions or concerns Unchanged sertraline (sertraline 100 mg Tab) By Mouth Every day Contact prescribing physician if questions or concerns Unchanged sertraline (Zoloft 100 mg Tab) 1 Tablets By Mouth 2 times a day Contact prescribing physician if questions or concerns Pharmacy Information [facility]/pharmacy #[id number]: [address], [place] [id number] [phone] What How Much When Comments Stop Taking acetaminophen (acetaminophen 500 mg Tab) By Mouth Every 6 hours Stop Taking mirabegron (mirabegron 50 mg oral tablet, extended release) 1 Tablets By Mouth Every day Duration: 30 Days Allergies Cardura (Anaphylaxis) Problems Ongoing - Any [...] you for choosing us for your care. Patient Portal You may access all of your results and other medical record information on our secure patient portal. If you are not signed up for this yet, please contact [employer] at [phone] to get signed up today. Language Information Language assistance services are available as needed. [facility] [phone] Reminders From: Tiffanie Irvin To: EU - Administrative; Sent: 11/10/2024 15:40:15 EDT Show up: 05/04/2025 15:40:00 EST Subject: 1 yr follow up Due Date/Time: 11/10/2025 15:40:00 EDT Reminder/Recall Patient needs scheduled with and [facility] for a 1 yr f/u in [place], due late October 20[facility] Urology Office/Clinic NoteUrology Office/Clinic Note Chief Complaint 6 month HPI Staff 73 year old male here for a 6 month follow up S/p cysto 12/25/22, TURP 04/18/23 Previous Dx: BPH with urinary obstruction, OAB, urge incontinence Gemtesa 75mg qd and Finasteride 5mg qd PVR 73mL Pt. states symptoms have improved Pt. denies having incontinence Pt. denies having pain with urination Pt. denies having gross hematuria Pt. denies having abd pain Pt. denies having flank pain Review of Systems PHQ Score Initial Depression Screen Score: 0 SCORE No fever, chills, malaise, myalgia. No abdominal pain, flank pain, gross hematuria. Physical Exam Vitals & Measurements HT: 70 in HT: 179 cm WT: 237.438 lb WT: 107.7 kg BMI: 33.61 General: nontoxic, NAD Assessment/Plan 1. OAB (overactive bladder) (N32.81: Overactive bladder) Vesicare helped but caused intolerable dry mouth. PRW tried sending Myrbetriq in Apr 2024 but not covered. Sent Gemtesa and this was covered. Pt is taking _Gemtesa 75mg_ and is highly satisfied with overall symptom control. Current side effects: none Pt has elected to: stay on same medication at same dose. Risks, benefits, side effects discussed. Refills sent. Ordered: 29226 Measure Post Void residual urine and/or bladder capacity by US- non-imaging E&M of Est. Patient Low 20-29 Min 57684 Urnls Dip Stick Auto w/o Microscopy POC 90331 2. BPH with urinary obstruction (N40.1: Benign prostatic hyperplasia with lower urinary tract symptoms) PSA 07/01/19 - has been on Finasteride since at least this date 08/31/20 - 0.63 (1.26) 10/08/22 - 0.74 (1.58) 10/14/23 - 0.40 (0.80) at [facility] S/p TURP 04/18/23. Stopped Tamsulosin after TURP. [1] Taking Finasteride 5 mg qd wo complaint or SE. PRW recommended he cont to take this med due to large prostate. Pt agreeable. IPSS 5 QOL 1. Will continue Finasteride. Ordered: E&M of Est. Patient Low 20-29 Min 56810 Other obstructive and reflux uropathy (N13.8: Other obstructive and reflux uropathy) Orders: finasteride, 5 mg = 1 tab(s), Oral, Daily, # 90 tab(s), Refills(s) 3, Pharmacy: [facility]/pharmacy #[id number],179, cm, 11/10/24 15:20:00 EDT, Height/Length Dosing, 107.7, kg, 11/10/24 15:20:00 EDT, Weight Dosing vibegron, 75 mg = 1 tab(s), Oral, Daily, # 30 tab(s), Refills(s) 11, Pharmacy: [facility]/pharmacy #[id number], 179, cm, 11/10/24 15:20:00 EDT, Height/Length Dosing, 107.7, kg, 11/10/24 15:20:00 EDT, Weight Dosing Follow-up With When Contact Information RADHA SANDERS, PATRICA Marks, URL In 1 year [address] [place] [address] Additional Instructions: Patient Education Benign Prostatic Hyperplasia Problem List/Past Medical History Ongoing Asthma BPH [...] sleep apnea and snoring (1999), Tonsillectomy. Medications amitriptyline 25 mg Tab, 25 mg= 1 tab(s) atorvastatin 80 mg Tab, 80 mg= 1 tab(s), Oral, Daily busPIRone 30 mg oral tablet, 30 mg= 1 tab(s), Oral, BID finasteride 5 mg Tab, 5 mg= 1 tab(s), Oral, Daily, 3 refills sertraline 100 mg Tab, Oral, Daily Trelegy Ellipta 200 mcg-62.5 mcg-25 mcg/inh inhalation powder Trelegy Ellipta 200 mcg-62.5 mcg-25 mcg/inh inhalation powder, 1 inh Ventolin HFA 90 mcg/inh Aerosol, Inhalation, q6hr vibegron 75 mg oral tablet, 75 mg= 1 tab(s), Oral, Daily, 11 refills Zetia 10 mg Tab, 10 mg= 1 tab(s), Oral, Daily Zoloft 100 mg Tab, 100 mg= 1 tab(s), Oral, BID Allergies Cardura (Anaphylaxis) Social History Alcohol Never., 04/20/2024 Substance Abuse Never., 04/20/2024 Tobacco Former smoker, quit more than 30 days ago Tobacco Use:. Cigarettes, Household tobacco concerns: No.Yes, 11/10/2024 Family History Alcoholism: Father. Heart disease: Mother and Father. Hypertension: Father. Primary malignant neoplasm of bone: Sister. Lab Results Ambulatory Point of Care Results Bilirubin Urine Dipstick: Negative (11/10/24 15:17:00) Blood Urine Dipstick: Negative (11/10/24 15:17:00) Glucose Urine Dipstick: Negative (11/10/24 15:17:00) Ketones Urine Dipstick: Negative (11/10/24 15:17:00) Leukocytes Urine Dipstick: Negative (11/10/24 15:17:00) Nitrite Urine Dipstick: Negative (11/10/24 15:17:00) Protein Urine Dipstick: Negative (11/10/24 15:17:00) Specific G (more content not included)...[facility] Comment on above:Result Comment: Electronically Signed By: PATRICA GARCIA PA-C\Date and Time Signed: 11/10/2514:38 CWLKaE4d HPLC (Bld) [Mass fraction]on 37-14-6066NzH2t (Bld) [Mass fraction]6.3 %[facility] Alanine aminotransferase [Enzymatic activity/volume] in Serum or PlasmaOrdered By: Adi Lara on 41-68-8024DUW [Catalytic activity/Vol]Alanine aminotransferase [Enzymatic activity/volume] in Serum or PlasmaOur Lady Of Mercy Hospital - AndersonALT [Catalytic activity/Vol]34 U/LNormal[address] [place], [place] [address]Comment on above:Performed By: #### HBSAG, HIV SCREEN, HBSAB, HCV RX PCR, MO, HBCAB, WILLIAM, PLT AB S, RA, CU #### [facility] , #### CMP, LDH, FE and TIBC, HENNA, TSH3, CBC, [id number] #### [place] [address] USAAlbumin [Mass/volume] in Serum or Plasma by Bromocresol green (BCG) dye binding methoOrdered By: Adi Lara on 16-56-2787Lwewquy BCG dye [Mass/Vol]Albumin [Mass/volume] in Serum or Plasma by Bromocresol green (BCG) dye binding metho3.5-5.7FMarion HospitalAlbumin BCG dye [Mass/Vol]4.5 g/dL3.5-5.7FMarion HospitalAlkaline phosphatase [Enzymatic activity/volume] in Serum or PlasmaOrdered By: Adi Lara on 41-16-6003GVJ [Catalytic activity/Vol]Alkaline phosphatase [Enzymatic activity/volume] in Serum or Dfwihi55-618YvbfzbuhmOur Lady Of Mercy Hospital - AndersonALP [Catalytic activity/Vol]98 U/ELpkxly85-791Nyweib[address] Comment on above:Performed By: #### HBSAG, HIV SCREEN, HBSAB, HCV RX PCR, MO, HBCAB, WILLIAM, PLT AB S, RA, CU #### [facility] , #### CMP, LDH, FE and TIBC, HENNA, TSH3, CBC, [id number] #### [place] [address] USAAspartate aminotransferase [Enzymatic activity/volume] in Serum or PlasmaOrdered By: Adi Lara on 80-47-8363GKC [Catalytic activity/Vol]Aspartate aminotransferase [Enzymatic activity/volume] in Serum or Qylnpm80-20Ybpdimcey[address] [place], [place] [address]AST [Catalytic activity/Vol]25 U/L Yamrnd76-42Azkyqoacu[address] [place], [place] [address]Comment on above:Performed By: #### HBSAG, HIV SCREEN, HBSAB, HCV RX PCR, MO, HBCAB, WILLIAM, PLT AB S, RA, CU #### [facility] , #### CMP, LDH, FE and TIBC, HENNA, TSH3, CBC, [id number] #### [place] [address] USABasophils Auto (Bld) [#/Vol]Ordered By: Adi Lara on 98-62-0479Bxifgygat (Bld) [#/Vol]Automated basophil count0.0-0.2FMarion HospitalBasophils [#/volume] in Blood by Automated countOrdered By: Adi Lara on 92-39-7000Rzcpicjdu (Bld) [#/Vol]0.1 10*3/uLNormal0.0-0.2 [facility] AndersonComment on above:Result Comment: PERFORMED BY: [place] [address] PATHOLOGIST [employer] KYLE GONZALEZ M.D.Performed By: #### HBSAG, HIV SCREEN, HBSAB, HCV RX PCR, MO, HBCAB, WILLIAM, PLT AB S, RA, CU #### [facility] , #### CMP, LDH, FE and TIBC, HENNA, TSH3, CBC, [id number] #### [place] [id number] USABasophils/100 WBC Auto (Bld)Ordered By: Adi Lara on 53-66-9114Tkayxkldm/100 WBC (Bld)Automated basophil %.[facility] AndersonBasophils/100 leukocytes in Blood by Automated countOrdered By: Adi Monroy on 56-27-9508Yggsbnudc/100 WBC (Bld)0.8 %Normal.[facility] - AndersonComment on above:Performed By: #### HBSAG, HIV SCREEN, HBSAB, HCV RX PCR, MO, HBCAB, WILLIAM, PLT AB S, RA, CU #### [facility] , #### CMP, LDH, FE and TIBC, HENNA, TSH3, CBC, [id number] #### [facility] [address] [place] [id number] USABilirubin.total [Mass/volume] in Serum or PlasmaOrdered By: Adi Lara on 16-07-6062Hthzqlarb [Mass/Vol]Bilirubin.total [Mass/volume] in Serum or PlasmaHigh0.3-1.0[facility] Comment on above:Samples from patients who have taken Naproxen have shown spurious elevation in Total Bilirubin levels. A metabolite of Naproxen, O- desmethylnaproxen, has been shown to interfere with the Jendrassik-Grof method for measuring Total Bilirubin.Bilirubin [Mass/Vol]1.4 mg/dLHigh0.3-1.0[facility] AndersonComment on above:Samples from patients who have taken Naproxen have shown spurious elevation in Total Bilirubin levels. A metabolite of Naproxen, O-desmethylnaproxen, has been shown to interfere with the Jendrassik-Grof method for measuring Total Bilirubin.Result Comment: Samples from patients who have taken Naproxen have shown spurious elevation in Total Bilirubin levels. A metabolite of Naproxen, O-desmethylnaproxen, has been shown to interfere with the Jendrassik-Grof method for measuring Total Bilirubin.Performed By: #### HBSAG, HIV SCREEN, HBSAB, HCV RX PCR, MO, HBCAB, WILLIAM, PLT AB S, RA, CU #### [facility] , #### CMP, LDH, FE and TIBC, HENNA, TSH3, CBC, [id number] #### [facility] [address] [place] [address] USACalcium [Mass/volume] in Serum or PlasmaOrdered By: Adi Lara on 33-86-0946Ntwgdbt [Mass/Vol]Calcium [Mass/volume] in Serum or Plasma8.6-10.3FMarion HospitalCalcium [Mass/Vol]8.8 mg/dLNormal 8.6-10.3FMarion HospitalComment on above:Performed By: #### HBSAG, HIV SCREEN, HBSAB, HCV RX PCR, MO, HBCAB, WILLIAM, PLT AB S, RA, CU #### [facility] , #### CMP, LDH, FE and TIBC, HENNA, TSH3, CBC, [id number] #### [facility] [address] [place] [address] USACarbon dioxide, total [Moles/volume] in Serum or Plasma Ordered By: Adi Lara on 94-36-2219XS5 [Moles/Vol]Carbon dioxide, total [Moles/volume] in Serum or Nwgxqr86.0-31.0[facility] - AndersonCO2 [Moles/Vol]22.9 mmol/RUvncms40.0-31.0[facility] - AndersonComment on above:Performed By: #### HBSAG, HIV SCREEN, HBSAB, HCV RX PCR, MO, HBCAB, WILLIAM, PLT AB S, RA, CU #### [facility] , #### CMP, LDH, FE and TIBC, HENNA, TSH3, CBC, [id number] #### [facility] [address] [place] [address] USAChloride [Moles/volume] in Serum or PlasmaOrdered By: Adi Lara on 69-33-9154Vmncmtus [Moles/Vol]Chloride [Moles/volume] in Serum or Ucjqoq80-381YxocjkemvOur Lady Of Mercy Hospital - AndersonChloride [Moles/Vol]105 mmol/L Tcbuic57-155Fpepwbjxt Regional Medical CenterComment on above:Performed By: #### HBSAG, HIV SCREEN, HBSAB, HCV RX PCR, MO, HBCAB, WILLIAM, PLT AB S, RA, CU #### [facility] , #### CMP, LDH, FE and TIBC, HENNA, TSH3, CBC, [id number] #### [place] [address] USAComplete Blood Count Auto Diffon 23-41-2379Tuxs Corpuscular HGB Conc35.5 g/dCKhlsts32.5-35.6The [facility] Physician GroupComment on above:Performed By: #### HBSAG, HIV SCREEN, HBSAB, HCV RX PCR, MO, HBCAB, WILLIAM, PLT AB S, RA, CU #### [facility] , #### CMP, LDH, FE and TIBC, HENNA, TSH3, CBC, [id number] #### [place] [address] USANRBC%0.0 /100{WBC}Normal0-0.5[facility] Comment on above:Performed By: #### HBSAG, HIV SCREEN, HBSAB, HCV RX PCR, MO, HBCAB, WILLIAM, PLT AB S, RA, CU #### [facility] , #### CMP, LDH, FE and TIBC, HENNA, TSH3, CBC, [id number] #### [place] [address] USAComprehensive Metabolic Panelon 17-08-2600Cylkzfx [Mass/Vol]4.5 g/dLNormal3.5-5.7[facility] Physician GroupComment on above: Performed By: #### HBSAG, HIV SCREEN, HBSAB, HCV RX PCR, MO, HBCAB, WILLIAM, PLT AB S, RA, CU #### [facility] , #### CMP, LDH, FE and TIBC, HENNA, TSH3, CBC, [id number] #### [place] [address] USACreatinine Clr Calc Kfdjjowu94.65NoFormerly [facility] Physician GroupComment on above:Performed By: #### HBSAG, HIV SCREEN, HBSAB, HCV RX PCR, MO, HBCAB, WILLIAM, PLT AB S, RA, CU #### [facility] , #### CMP, LDH, FE and TIBC, HENNA, TSH3, CBC, [id number] #### [facility] [address] [place] [address] USAGFR/1.73 sq M.predicted MDRD (S/P/Bld) [Vol rate/Area] mL/min/{1.73_m2}NormalThe [facility] Hospital Physician GroupComment on above:Performed By: #### HBSAG, HIV SCREEN, HBSAB, HCV RX PCR, MO, HBCAB, WILLIAM, PLT AB S, RA, CU #### [facility] , #### CMP, LDH, FE and TIBC, HENNA, TSH3, CBC, [id number] #### [facility] [address] [place], [place] [address] USACreatinine [Mass/volume] in Serum or PlasmaOrdered By: hattie Lara on 84-45-7204Sszqekqgkd [Mass/Vol]Creatinine [Mass/volume] in Serum or Plasma0.70-1.30[facility] AndersonCreatinine [Mass/Vol]0.89 mg/dLNormal0.70-1.30[facility] AndersonComment on above:Performed By: #### HBSAG, HIV SCREEN, HBSAB, HCV RX PCR, MO, HBCAB, WILLIAM, PLT AB S, RA, CU #### [facility] , #### CMP, LDH, FE and TIBC, HENNA, TSH3, CBC, [id number] #### [facility] [address] [place], [place] [address] USAEosinophils Auto (Bld) [#/Vol]Ordered By: hattie Lara on 12-30-3855Obnqqlfkvxv (Bld) [#/Vol]Automated eosinophil count0.0-0.45 [facility] - AndersonEosinophils [#/volume] in Blood by Automated countOrdered By: hattie Lara on 60-93-8784Evmaxrxbuep (Bld) [#/Vol]0.2 10*3/uLNormal0.0-0.45[facility] - AndersonComment on above:Performed By: #### HBSAG, HIV SCREEN, HBSAB, HCV RX PCR, MO, HBCAB, WILLIAM, PLT AB S, RA, CU #### [facility] , #### CMP, LDH, FE and TIBC, HENNA, TSH3, CBC, [id number] #### [facility] [address] [place] [address] USAEosinophils/100 WBC Auto (Bld)Ordered By: hattie HenryJuncindy on 95-94-1040Jvvghfldxkb/100 WBC (Bld)Automated eosinophil %.[facility] - AndersonEosinophils/100 leukocytes in Blood by Automated countOrdered By: hattie Lara on 17-07-7007Hundhdojsfp/100 WBC (Bld)1.5 %Normal.[facility] - AndersonComment on above:Performed By: #### HBSAG, HIV SCREEN, HBSAB, HCV RX PCR, MO, HBCAB, WILLIAM, PLT AB S, RA, CU #### [facility] , #### CMP, LDH, FE and TIBC, HENNA, TSH3, CBC, [id number] #### [facility] [address] [place] [address] USAErythrocyte distribution width Auto (RBC) [Ratio]Ordered By: hattie Lara on 29-75-2337Cqkveactqto distribution width (RBC) [Ratio] Erythrocyte distribution width [Ratio] by Automated count12.0-14.8[facility] - AndersonErythrocyte distribution width [Ratio] by Automated count Ordered By: hattie HenryJuncindy on 66-53-7216Pqxpqgiosva distribution width (RBC) [Ratio]14.7 %Azfgsi44.0-14.8[facility] - AndersonComment on above: Performed By: #### HBSAG, HIV SCREEN, HBSAB, HCV RX PCR, MO, HBCAB, WILLIAM, PLT AB S, RA, CU #### [facility] , #### CMP, LDH, FE and TIBC, HENNA, TSH3, CBC, [id number] #### [facility] [address] [place] [address] USAErythrocytes [#/volume] in Blood by Automated countOrdered By: Adi Lara on 57-34-1192UBY (Bld) [#/Vol]5.34 10*6/uLNormal3.90-5.60 [facility] - AndersonComment on above:Performed By: #### HBSAG, HIV SCREEN, HBSAB, HCV RX PCR, MO, HBCAB, WILLIAM, PLT AB S, RA, CU #### [facility] , #### CMP, LDH, FE and TIBC, HENNA, TSH3, CBC, [id number] #### [facility] [address] [place] [address] USAGlobulin Calc (S) [Mass/Vol]Ordered By: hattie Lara on 92-83-3548Mzeknfrf (S) [Mass/Vol]Serum globulin measurement by calculation (mass/volume)[facility] AndersonGlucose [Mass/volume] in Serum or PlasmaOrdered By: hattie Lara on 55-52-5539Nbngovm [Mass/Vol]Glucose [Mass/volume] in Serum or AgypwaJbir23-358Ebhxoupzi[address] Comment on above:ADA recommended reference rangeRandom Glucose Reference Range is dependent on time and content of last meal. Glucose of more than 200 mg/dL in a nonstressed, ambulatory subject supports the diagnosisof Diabetes Mellitus. Glucose [Mass/Vol]174 mg/lFYjpe54-671Yjcopvbrt68 [address] StreetComment on above:ADA recommended reference rangeRandom Glucose Reference Range is dependent on time and content of last meal. Glucose of more than 200 mg/dL in a nonstressed, ambulatory subject supports the diagnosisof Diabetes Mellitus. Result Comment: Random Glucose Reference Range is dependent on time and content of last meal. Glucose of more than 200 mg/dL in a nonstressed, ambulatory subject supports the diagnosis of Diabetes Mellitus. ADA recommended reference rangePerformed By: #### HBSAG, HIV SCREEN, HBSAB, HCV RX PCR, MO, HBCAB, WILLIAM, PLT AB S, RA, CU #### [facility] , #### CMP, LDH, FE and TIBC, HENNA, TSH3, CBC, [id number] #### [place] [address] USAHematocrit Auto (Bld) [Volume fraction]Ordered By: hattie Monroy on 12-54-6693Dcqwmvywcj (Bld) [Volume fraction]Hematocrit [Volume Fraction] of Blood by Automated count38.8-50.0[facility] Hematocrit [Volume Fraction] of Blood by Automated countOrdered By: hattie Monroy on 80-52-4789Hsamxfwnxm (Bld) [Volume fraction]43.8 %Bwyfmu92.8-50.0 [facility] - AndersonComment on above:Performed By: #### HBSAG, HIV SCREEN, HBSAB, HCV RX PCR, MO, HBCAB, WILLIAM, PLT AB S, RA, CU #### [facility] , #### CMP, LDH, FE and TIBC, HENNA, TSH3, CBC, [id number] #### [place] [id number] USAHemoglobin [Mass/volume] in BloodOrdered By: hattie Monroy on 83-33-8545Hexeonpgtz (Bld) [Mass/Vol]Hemoglobin [Mass/volume] in Blood13.0-17.0[facility] - AndersonHemoglobin (Bld) [Mass/Vol]15.5 g/iEXgqxdf13.0-17.0[facility] - AndersonComment on above:Performed By: #### HBSAG, HIV SCREEN, HBSAB, HCV RX PCR, MO, HBCAB, WILLIAM, PLT AB S, RA, CU #### [facility] , #### CMP, LDH, FE and TIBC, HENNA, TSH3, CBC, [id number] #### [address] [place] [address] USALDH Lactate Dehydrogenaseon 11-29-4624MNT Lactate Ozaxrqpbfzfaz097 U/ORkcluq777-720Xbv [facility] Physician GroupComment on above: Result Comment: PERFORMED BY: [address] [address] PATHOLOGIST J[employer] SOFTWARE KYLE GONZALEZ M.D.Performed By: #### HBSAG, HIV SCREEN, HBSAB, HCV RX PCR, MO, HBCAB, WILLIAM, PLT AB S, RA, CU #### [facility] , #### CMP, LDH, FE and TIBC, HENNA, TSH3, CBC, [id number] #### [facility] [address] [place] [address] USALactate dehydrogenase [Enzymatic activity/volume] in Serum or Plasma by Lactate to pyOrdered By: Adi Lara on 43-43-5373UUA Lactate to pyruvate reaction [Catalytic activity/Vol]Lactate dehydrogenase [Enzymatic activity/volume] in Serum or Plasma by Lactate to xd571-766VgxbtdkuoOur Lady Of Mercy Hospital - AndersonLDH Lactate to pyruvate reaction [Catalytic activity/Vol]230 U/L 140-271[facility] - AndersonLeukocytes [#/volume] corrected for nucleated erythrocytes in Blood by Automated counOrdered By: Adi Lara on 84-37-5304GRI corrected for nucl RBC Auto (Bld) [#/Vol]Leukocytes [#/volume] corrected for nucleated erythrocytes in Blood by Automated counHigh4.1-10.5 [facility] - AndersonWBC corrected for nucl RBC Auto (Bld) [#/Vol] 10.9 10*3/uLHigh4.1-10.5FMarion HospitalLeukocytes [#/volume] in Blood by Automated countOrdered By: Adi Lara on 04-73-1154LSD (Bld) [#/Vol]10.9 10*3/uLHigh4.1-10.5FMarion HospitalComment on above:Performed By: #### HBSAG, HIV SCREEN, HBSAB, HCV RX PCR, MO, HBCAB, WILLIAM, PLT AB S, RA, CU #### [facility] , #### CMP, LDH, FE and TIBC, HENNA, TSH3, CBC, [id number] #### [facility] [address] [place] [id number] USALymphocytes Auto (Bld) [#/Vol]Ordered By: [employer] Marco on 22-46-2422Pcvrzjhwgmq (Bld) [#/Vol]Lymphocytes [#/volume] in Blood by Automated count1.00-4.8[facility] - AndersonLymphocytes [#/volume] in Blood by Automated countOrdered By: [employer] adryan on 32-17-1255Ouqvfcraoko (Bld) [#/Vol]2.2 10*3/uLNormal1.00-4.[address] [place], [place] [address]Comment on above:Performed By: #### HBSAG, HIV SCREEN, HBSAB, HCV RX PCR, MO, HBCAB, WILLIAM, PLT AB S, RA, CU #### [facility] , #### CMP, LDH, FE and TIBC, HENNA, TSH3, CBC, [id number] #### [place] [id number] USALymphocytes/100 WBC Auto (Bld)Ordered By: [employer] cindy on 26-85-3512Hlpcvdwcnkk/100 WBC (Bld)Lymphocytes/100 leukocytes in Blood by Automated count.[facility] AndersonLymphocytes/100 leukocytes in Blood by Automated countOrdered By: [employer] Eliana on 12-13-5391Xfbfmgddsto/100 WBC (Bld)20.2 %Normal.[facility] - AndersonComment on above: Performed By: #### HBSAG, HIV SCREEN, HBSAB, HCV RX PCR, MO, HBCAB, WILLIAM, PLT AB S, RA, CU #### [facility] , #### CMP, LDH, FE and TIBC, HENNA, TSH3, CBC, [id number] #### [facility] [address] [id number] USAMCH Auto (RBC) [Entitic mass]Ordered By: Adi Lara on 16-17-2208UHU (RBC) [Entitic mass]MCH [Entitic mass] by Automated count27.5-35.2 [facility] [Entitic mass] by Automated countOrdered By: Adi Lara on 25-93-0212OKS (RBC) [Entitic mass]29.1 rjLjesmj31.5-35.2 [facility] - AndersonComment on above:Performed By: #### HBSAG, HIV SCREEN, HBSAB, HCV RX PCR, MO, HBCAB, WILLIAM, PLT AB S, RA, CU #### [facility] , #### CMP, LDH, FE and TIBC, HENNA, TSH3, CBC, [id number] #### [facility] [address] Auto (RBC) [Mass/Vol]Ordered By: Adi Lara on 14-49-1934PRQF (RBC) [Mass/Vol]MCHC [Mass/volume] by Automated count32.5-35.6 [facility] (RBC) [Mass/Vol]35.5 g/dL32.5-35.6 [facility] Auto (RBC) [Entitic vol]Ordered By: Adi Monroy on 81-33-0871EDI (RBC) [Entitic vol]MCV [Entitic volume] by Automated izyhcZbx99.5-101[facility] HospitalV [Entitic volume] by Automated countOrdered By: Adi Lara on 66-06-4466KRA (RBC) [Entitic vol] 82.0 fLLow83.5-101[facility] - AndersonComment on above:Performed By: #### HBSAG, HIV SCREEN, HBSAB, HCV RX PCR, MO, HBCAB, WILLIAM, PLT AB S, RA, CU #### [facility] , #### CMP, LDH, FE and TIBC, HENNA, TSH3, CBC, [id number] #### [facility] [address] [id number] USAMonocytes Auto (Bld) [#/Vol]Ordered By: Adi Lara on 59-71-7522Blcskdytz (Bld) [#/Vol]Automated blood monocyte count0.0-0.8[facility] - AndersonMonocytes [#/volume] in Blood by Automated countOrdered By: hattie Lara on 37-15-5159Hlwwbblei (Bld) [#/Vol]0.4 10*3/uLNormal0.0-0.8 [facility] - AndersonComment on above:Performed By: #### HBSAG, HIV SCREEN, HBSAB, HCV RX PCR, MO, HBCAB, WILLIAM, PLT AB S, RA, CU #### [facility] , #### CMP, LDH, FE and TIBC, HENNA, TSH3, CBC, [id number] #### [facility] [address] [address] USAMonocytes/100 WBC Auto (Bld)Ordered By: hattie Lara on 32-68-3251Prynytqyt/100 WBC (Bld)Automated monocyte %.[facility] AndersonMonocytes/100 leukocytes in Blood by Automated countOrdered By: hattie Monroy on 26-07-0307Maiionvmk/100 WBC (Bld)3.6 %Normal.[facility] - AndersonComment on above:Performed By: #### HBSAG, HIV SCREEN, HBSAB, HCV RX PCR, MO, HBCAB, WILLIAM, PLT AB S, RA, CU #### [facility] , #### CMP, LDH, FE and TIBC, HENNA, TSH3, CBC, [id number] #### [facility] [address] [address] USANeutrophils Auto (Bld) [#/Vol]Ordered By: hattie Lara on 24-13-9499Tzpaapfxchn (Bld) [#/Vol]Neutrophils [#/volume] in Blood by Automated countHigh1.8-7.7FMarion HospitalNeutrophils [#/volume] in Blood by Automated countOrdered By: Adi Lara on 09-04-2024 Neutrophils (Bld) [#/Vol]8.0 10*3/uLHigh1.8-7.7FMarion Hospital Comment on above:Performed By: #### HBSAG, HIV SCREEN, HBSAB, HCV RX PCR, MO, HBCAB, WILLIAM, PLT AB S, RA, CU #### [facility] , #### CMP, LDH, FE and TIBC, HENNA, TSH3, CBC, [id number] #### [facility] [address] [address] USANeutrophils/100 WBC Auto (Bld)Ordered By: Adi Lara on 06-71-7447Wpscbhzstcj/100 WBC (Bld)Automated neutrophil %.[facility] AndersonNeutrophils/100 leukocytes in Blood by Automated countOrdered By: Adi Lara on 15-81-0907Hcnxbxqrest/100 WBC (Bld)73.9 %Normal.[facility] - AndersonComment on above:Performed By: #### HBSAG, HIV SCREEN, HBSAB, HCV RX PCR, MO, HBCAB, WILLIAM, PLT AB S, RA, CU #### [facility] , #### CMP, LDH, FE and TIBC, HENNA, TSH3, CBC, [id number] #### [facility] [address] [place] [address] USANo Panel InformationOrdered By: Adi Lara on 49-40-1254Bszbwmcqj GFR (CKD-EPI)> 60.0 mL/MinOur Lady Of Mercy [facility] - Anderson [facility] Creatinine Clearance (Chem92.65[facility] Nucleated erythrocytes [Presence] in Blood by Automated countOrdered By: Adi Monroy on 88-26-9421Ogadgzepl RBC Auto Ql (Bld)Nucleated erythrocytes [Presence] in Blood by Automated count0-0.5FMarion Hospital Nucleated RBC Auto Ql (Bld)0.0 /100{WBC}0-0.5FMarion Hospital Platelet mean volume Auto (Bld) [Entitic vol]Ordered By: hattie Lara on 63-08-8900Hjijvyen mean volume (Bld) [Entitic vol]Platelet mean volume [Entitic volume] in Blood by Automated count6.6-10.1FMarion Hospital Platelet mean volume [Entitic volume] in Blood by Automated countOrdered By: hattie Lara on 50-48-6702Dpchpewg mean volume (Bld) [Entitic vol]7.2 fLNormal 6.6-10.1FMarion HospitalComment on above:Performed By: #### HBSAG, HIV SCREEN, HBSAB, HCV RX PCR, MO, HBCAB, WILLIAM, PLT AB S, RA, CU #### [facility] , #### CMP, LDH, FE and TIBC, HENNA, TSH3, CBC, [id number] #### [facility] [address] [place] [address] USAPlatelets Auto (Bld) [#/Vol]Ordered By: hattie Lara on 57-15-2992Uqzhlmkyu (Bld) [#/Vol]Platelets [#/volume] in Blood by Automated ntvshTyz550-646LzfjncnzyOur Lady Of Mercy Hospital - AndersonPlatelets [#/volume] in Blood by Automated countOrdered By: hattie Lara on 75-31-7198Kpxyxksxf (Bld) [#/Vol] 147 10*3/pQZjg316-389KwkbpftcgOur Lady Of Mercy Hospital - AndersonComment on above:Performed By: #### HBSAG, HIV SCREEN, HBSAB, HCV RX PCR, MO, HBCAB, WILLIAM, PLT AB S, RA, CU #### [facility] , #### CMP, LDH, FE and TIBC, HENNA, TSH3, CBC, [id number] #### [facility] [address] [place] [address] USAPotassium [Moles/volume] in Serum or PlasmaOrdered By: hattie Lara on 98-77-1092Fobkwkand [Moles/Vol]Potassium [Moles/volume] in Serum or Plasma3.5-5.1[facility] Medical CenterPotassium [Moles/Vol]4.0 mmol/L Normal3.5-5.1FMarion HospitalComment on above:Performed By: #### HBSAG, HIV SCREEN, HBSAB, HCV RX PCR, MO, HBCAB, WILLIAM, PLT AB S, RA, CU #### [facility] , #### CMP, LDH, FE and TIBC, HENNA, TSH3, CBC, [id number] #### [facility] [address] [place] [address] USAProtein [Mass/volume] in Serum or PlasmaOrdered By: hattie Lara on 69-59-2591Uznxink [Mass/Vol]Protein [Mass/volume] in Serum or Plasma6.4-8.9[facility] - AndersonProtein [Mass/Vol]6.8 g/dLNormal 6.4-8.9[facility] - AndersonComment on above:Performed By: #### HBSAG, HIV SCREEN, HBSAB, HCV RX PCR, MO, HBCAB, WILLIAM, PLT AB S, RA, CU #### [facility] , #### CMP, LDH, FE and TIBC, HENNA, TSH3, CBC, [id number] #### [facility] [address] [place] [address] USARBC Auto (Bld) [#/Vol]Ordered By: hattie Lara on 08-13-7638LVJ (Bld) [#/Vol]Erythrocytes [#/volume] in Blood by Automated count 3.90-5.60[facility] Children's Hospitalerum globulin measurement by calculation (mass/volume)Ordered By: hattie Lara on 27-13-1898Ylmipsqt (S) [Mass/Vol]2.3 g/dLNormalOur Lady Of Mercy Hospital - AndersonComment on above: Performed By: #### HBSAG, HIV SCREEN, HBSAB, HCV RX PCR, MO, HBCAB, WILLIAM, PLT AB S, RA, CU #### [facility] , #### CMP, LDH, FE and TIBC, HENNA, TSH3, CBC, [id number] #### [facility] [address] [place] [address] USASerum or plasma albumin/globulin mass ratioOrdered By: hattie Lara on 69-57-7620Zhgjeec/Globulin [Mass ratio]Serum or plasma albumin/globulin mass ratioOur Lady Of Mercy Hospital - AndersonAlbumin/Globulin [Mass ratio]2.0 {ratio}NormalOur Lady Of Mercy Hospital - AndersonComment on above: Performed By: #### HBSAG, HIV SCREEN, HBSAB, HCV RX PCR, MO, HBCAB, WILLIAM, PLT AB S, RA, CU #### [facility] , #### CMP, LDH, FE and TIBC, HENNA, TSH3, CBC, [id number] #### [place] [address] USASerum or plasma anion gap determinationOrdered By: hattie Monroy on 05-27-3970Kjkme gap [Moles/Vol]Serum or plasma anion gap determination6.0-15.0[facility] - AndersonAnion gap [Moles/Vol]13.1 mmol/LNormal6.0-15.0[facility] - AndersonComment on above:Performed By: #### HBSAG, HIV SCREEN, HBSAB, HCV RX PCR, MO, HBCAB, WILLIAM, PLT AB S, RA, CU #### [facility] , #### CMP, LDH, FE and TIBC, HENNA, TSH3, CBC, [id number] #### [facility] [address] [place] [address] USASodium [Moles/volume] in Serum or PlasmaOrdered By: hattie Lara on 59-31-9241Zlhjtj [Moles/Vol]Sodium [Moles/volume] in Serum or Nnhway477-724SfrhlcqqaAkron Children's Hospitalodium [Moles/Vol]137 mmol/LNormal 136-145[facility] - AndersonComment on above:Performed By: #### HBSAG, HIV SCREEN, HBSAB, HCV RX PCR, MO, HBCAB, WILLIAM, PLT AB S, RA, CU #### [facility] , #### CMP, LDH, FE and TIBC, HENNA, TSH3, CBC, [id number] #### [facility] [address] [place] [address] USAUrea nitrogen [Mass/volume] in Serum or PlasmaOrdered By: Adi Lara on 25-38-7180Cqlm nitrogen [Mass/Vol]Urea nitrogen [Mass/volume] in Serum or Plasma11-06[facility] - AndersonUrea nitrogen [Mass/Vol] 10 mg/dLNormal11-06[facility] - AndersonComment on above:Performed By: #### HBSAG, HIV SCREEN, HBSAB, HCV RX PCR, MO, HBCAB, WILLIAM, PLT AB S, RA, CU #### [facility] , #### CMP, LDH, FE and TIBC, HENNA, TSH3, CBC, [id number] #### [facility] [address] [place], [place] [address] USAWBC Auto (Bld) [#/Vol]Ordered By: Adi Lara on 62-49-3274FIL (Bld) [#/Vol]Leukocytes [#/volume] in Blood by Automated countHigh 4.1-10.5FMarion HospitalX-ray reportOrdered By: Douglas Wallace on 29-42-2704[facility] [address] [place] [id number] XRay Report Signed Patient: Rachel Ackerman MR#: [id number] : 1950 Acct:[id number] Age/Sex: 73 / M ADM Date: 5 Loc: XDS Room: Type: [facility] Attending Dr: Claire Sancehz DO Copies to: Claire Sanchez DO~ Ordering Provider: Claire Sanchez DO Date of Service: 07/27/24 XR/XR cervical spine 2V: R20.2 - Paresthesia of skin 2 viewscervical spine HISTORY: Headache for 2 months COMPARISON: None POSTOPERATIVE CHANGES: None BONY ALIGNMENT: Straightening HYPERMOBILITY::No bending imaging. LISTHESIS:Mild multilevel degenerative listhesis FRACTURE: None DISC DEGENERATION: Extensive C5-6 and C6-7 disc space narrowing with endplate spurring. FACETS: Multilevel facet degeneration FORAMEN: Not assessed DENS: Intact CRANIOCERVICAL JUNCTION: Unremarkable SOFT TISSUES: Unremarkable XR/XR cervical spine 2V IMPRESSION: Extensive C5-6 and C6-7 degeneration. Impression dictated by: Douglas Wallace M.D.07/27/2024 4:23 PM Dictation Location: RADIO-PC-19 Transcribed By: ROYA 07/27/24 162 Dictated By: Douglas Wallace DO 07/27/24 162 Signed By: 07/27/24 162 [facility] - AndersonXR cervical spine 2Von 62-90-1414JP cervical spine 2V[facility] [place] [address] [place] [address] XRay Report Signed Patient: Rachel Ackerman MR#: [id number] : 1950 Acct:[id number] Age/Sex: 73 / M ADM Date: 07/27/24 Loc: XDS Room: Type: [facility] Attending Dr: Claire Sanchez DO Copies to: Claire Sanchez DO Ordering Provider: Claire Sanchez DO Date of Service: 07/27/24 XR/XR cervical spine 2V: R20.2 - Paresthesia of skin 2 viewscervical spine HISTORY: Headache for 2 months COMPARISON: None POSTOPERATIVE CHANGES: None BONY ALIGNMENT: Straightening HYPERMOBILITY::No bending imaging. LISTHESIS:Mild multilevel degenerative listhesis FRACTURE: None DISC DEGENERATION: Extensive C5-6 and C6-7 disc space narrowing with endplate spurring. FACETS: Multilevel facet degeneration FORAMEN: Not assessed DENS: Intact CRANIOCERVICAL JUNCTION: Unremarkable SOFT TISSUES: Unremarkable XR/XR cervical spine 2V IMPRESSION: Extensive C5-6 and C6-7 degeneration. Impression dictated by: Douglas Wallace M.D.07/27/2024 4:23 PM Dictation Location: RADIO-PC-19 Transcribed By: ROYA 07/27/24 162 Dictated By: Douglas Wallace DO 07/27/24 162 Signed By: 07/27/24 1623[facility] Physician GroupXR Knee - right 1 or 2 Viewson 82-62-9516Bnktudj Result: 06/01/2024: Standing AP and LAT of right knee showed surgical position and alignment of prosthetic components without evidence of loosening or wear to the femoral, tibial, or patellar components. The alignment appeared to be anatomic. There was no evidence of accelerated or asymmetric wear to the patellar button or tibial tray. There was no evidence of fracture and/or dislocation. Impression: Stable RT total knee replacement. Manuel Birch APRN-[facility] HealthcareRadiology Study observation (narrative)[facility] HealthcareUrology Office/Clinic Noteon 79-29-1852Krcfnne Office/Clinic NoteUrology Office/Clinic Note Chief Complaint OAB HPI Staff 73yr old male here for 6mo f/u (no labs). D/c'd solifenacin at last OV due to side effects. S/p cysto 12/25/22, TURP 04/18/23 Previous Dx: BPH with urinary obstruction, OAB, urge incontinence *finasteride 5mg Pt sates that he has restarted the Solifenacin cutting it in half taking 2.5mg daily Dysuria: denies Incomplete bladder emptying: denies Hematuria: denies Frequency: pt states it depends on his water intake Urgency: sometimes Nocturia: 1x Stream: good steady but does have some hesitation Leaking: a small amount right after he finishes urinating Post void dripping: yes Wearing pads/ Depends: not wearing depends anymore Urge incontinence: denies Stress incontinence: denies Incontinence without Sensory Awareness: denies Abdominal pain: denies Flank pain: denies Sexual complaints: denies History of Present Illness Tests reviewed: UA I have reviewed the previous health record information and history for this patient from Dr. Huerta. I have reviewed and verified the staff [...] Physical Exam Vitals & Measurements T: 37 ???C(Temporal Artery) HR: 70(Peripheral) RR: 16 BP: 136/74 HT: 70 in HT: 179 cm WT: 111.2 kg WT: 245.154 lb BMI: 34.71 General Appearance: alert, no distress, well nourished, well developed male. Assessment/Plan Pt here with his today. 1. BPH with urinary obstruction (N40.1: Benign prostatic hyperplasia with lower urinary tract symptoms) PSA 07/01/19 - has been on Finasteride since at least this date 08/31/20 - 0.63 (1.26) 10/08/22 - 0.74 (1.58) 10/14/23 - 0.40 (0.80) at [facility] S/p TURP 04/18/23. Stopped Tamsulosin after TURP. [1] UA neg. Taking Finasteride 5 mg qd wo complaint or SE. Recommended he cont to take this med due to large prostate. Pt agreeable. PSA decreased, very low, very low risk for prostate ca. 2. OAB (overactive bladder) (N32.81: Overactive bladder) Was to d/c Vesicare 10 mg qd at prior OV due to urinary hesitancy and SE of dry mouth. Pt tried stopping but was having UUI episodes, decreased bladder control. So he restarted Vesicare, taking 2.5 mg qd. This has improved his bladder control but still has SE of dry mouth which he does find bothersome. Pt's voice sounds hoarse today from dry mouth. Offered to switch med class which shouldn't haveSE of dry mouth. Pt elects to try. Explained etiology of continued OAB sxs after TURP. Would have expected urgency/UUI sxs to be resolved by now. Follow up 6 mos with MALCOM or sooner if needed. Pt understands and agrees with plan. Pt voices he is ok with seeing an MALCOM since he knows it can be difficult to be seen by MD. -D/c Vesicare and start Mirabegron 50 mg qd. Generic requested. SEs discussed. Sent to [facility]. Pt to call if cost prohibitive. Will take a few months for maximum benefit. Follow-up With When Contact Information RADHA SANDERS, PATRICA Marks, URL [address] [place] [address] Additional Instructions: 6 mos with MALCOM with PVR (new med) Patient Education Overactive Bladder, Adult I, Mary Ellen Ghotra, personally scribed for Dr. Huerta on 04/20/2024 13:04:23. . Documentation recorded by the scribe, Mary Ellen Ghotra, accurately reflects the services(s) I performed and decisions made by me. Authenticated by Dr. Huerta on 04/20/2024 13:07:51. Problem List/Past Medical History Ongoing Asthma BPH [...] Tab, 80 mg= 1 tab(s), Oral, Daily (more content not included)...[facility] HospitalComment on above: Result Comment: Electronically Signed By: Elia HUERTA MD\.br\Date and Time Signed: 04/20/24 13:07 EST\.br\Electronically Co-Signed By: Mary Ellen Ghotra\.br\Date and Time Co-Signed: 04/20/24 13:04 ESTComplete Blood Count Auto Diff on 30-88-6709Cqifnmzel (Bld) [#/Vol]0.1 10*3/uLNormal0.0-0.2[facility] Physician GroupComment on above:Result Comment: PERFORMED BY: [place] [address] PATHOLOGIST [employer] OSCAR PINTO M.D.Performed By: #### CBC #### [place] [address] USABasophils/100 WBC (Bld)1.1 %Normal.[facility] Physician GroupComment on above:Performed By: #### CBC #### [place] [address] USAEosinophils (Bld) [#/Vol]0.2 10*3/uLNormal0.0-0.45[facility] Physician GroupComment on above:Performed By: #### CBC #### [place] [address] USAEosinophils/100 WBC (Bld)2.4 %Normal.[facility] Physician GroupComment on above:Performed By: #### CBC #### [place] [address] USAErythrocyte distribution width (RBC) [Ratio]14.4 %Normal 12.0-14.8[facility] Physician GroupComment on above:Performed By: #### CBC #### [place] [address] USAHematocrit (Bld) [Volume fraction]42.9 %Isdzxg12.8-50.0[facility] Physician GroupComment on above:Performed By: #### CBC #### [place] [address] USAHemoglobin (Bld) [Mass/Vol]14.8 g/hPJqpidk55.0-17.0[facility] Physician GroupComment on above:Performed By: #### CBC #### [place] [address] USALymphocytes (Bld) [#/Vol]2.5 10*3/uLNormal1.00-4.8[facility] Physician GroupComment on above:Performed By: #### CBC #### [facility] [address] [place] [address] USALymphocytes/100 WBC (Bld)30.6 %Normal.[facility] Physician GroupComment on above:Performed By: #### CBC #### [facility] [address] [place] [address] USAMCH (RBC) [Entitic mass]29.8 sfHaumeq76.5-35.2[facility] Physician GroupComment on above:Performed By: #### CBC #### [facility] [address] [place] [address] USAMCV (RBC) [Entitic vol]86.6 lCKoqspd71.5-101The [facility] Physician GroupComment on above:Performed By: #### CBC #### [facility] [address] [place] [address] USAMean Corpuscular HGB Conc34.4 g/fVHeuowi07.5-35.6[facility] Physician GroupComment on above:Performed By: #### CBC #### [facility] [address] [place] [address] USAMonocytes (Bld) [#/Vol]0.6 10*3/uLNormal0.0-0.8[facility] Physician GroupComment on above:Performed By: #### CBC #### [facility] [address] [place] [address] USAMonocytes/100 WBC (Bld)7.9 %Normal.[facility] Physician GroupComment on above:Performed By: #### CBC #### [facility] [address] [place] [address] USANeutrophils (Bld) [#/Vol]4.7 10*3/uLNormal1.8-7.7[facility] Physician GroupComment on above:Performed By: #### CBC #### [place] [id number] USANeutrophils/100 WBC (Bld)58.0 %Normal.[facility] Physician GroupComment on above:Performed By: #### CBC #### [place] [address] USANRBC%0.1 /100{WBC}Normal0-0.5[facility] Comment on above:Performed By: #### CBC #### [place] [address] USAPlatelet mean volume (Bld) [Entitic vol]7.1 fLNormal 6.6-10.1[facility] Physician GroupComment on above:Performed By: #### CBC #### [place] [address] USAPlatelets (Bld) [#/Vol]131 10*3/oZSvp294-183Myr [facility] Physician GroupComment on above:Performed By: #### CBC #### [place] [address] USARBC (Bld) [#/Vol]4.95 10*6/uLNormal3.90-5.60[facility] Physician GroupComment on above:Performed By: #### CBC #### [place] [address] USAWBC (Bld) [#/Vol]8.1 10*3/uLNormal4.1-10.5[facility] Physician GroupComment on above:Performed By: #### CBC #### [place] [address] USAANA Antinuclear Antibodieson 98-70-6022Xivvircjdgr Abs, IFANegativeNormal.[facility] Physician GroupComment on above:Result Comment: Negative <1:80 Borderline 1:80 Positive >1:80 ICAP nomenclature: AC-0 For more information about Hep-2 cell patterns use ANApatterns.org, the official website for the International Consensus on Antinuclear Antibody (WILLIAM) Patterns (ICAP). Performed at: - [facility] [id number] Training Engineer: Jeffery Washburn PhD, Phone: [phone] By: #### HBSAG, HIV SCREEN, HBSAB, HCV RX PCR, MO, HBCAB, WILLIAM, PLT AB S, RA, CU #### [facility] , #### CMP, LDH, FE and TIBC, HENNA, TSH3, CBC, [id number] #### [place] [address] USABlood platelet glycoprotein Ib/IX IgG antibody detection by immunoassayOrdered By: Adi Lara on 06-31-4028Xpdxybty glycoprotein Ib/Ix IgG IA Ql (Bld)Blood platelet glycoprotein Ib/IX IgG antibody detection by immunoassayNegativeOur Lady Of Mercy Hospital - AndersonPlatelet glycoprotein Ib/Ix IgG IA Ql (Bld)NegativeNegativeOur Lady Of Mercy Hospital - AndersonComplete Blood Count Auto Diffon 49-71-7641Kkbaowyxw (Bld) [#/Vol]0.1 10*3/uLNormal0.0-0.2The [facility] Physician GroupComment on above:Result Comment: PERFORMED BY: [place] [address] PATHOLOGIST [employer] SOFTWARE JABARI GALLAGHER M.D.Performed By: #### HBSAG, HIV SCREEN, HBSAB, HCV RX PCR, MO, HBCAB, WILLIAM, PLT AB S, RA, CU #### [facility] , #### CMP, LDH, FE and TIBC, HENNA, TSH3, CBC, [id number] #### [place] [address] USABasophils/100 WBC (Bld)1.1 %Normal.[facility] Physician GroupComment on above:Performed By: #### HBSAG, HIV SCREEN, HBSAB, HCV RX PCR, MO, HBCAB, WILLIAM, PLT AB S, RA, CU #### [facility] , #### CMP, LDH, FE and TIBC, HENNA, TSH3, CBC, [id number] #### [place] [address] USAEosinophils (Bld) [#/Vol]0.2 10*3/uLNormal0.0-0.45[facility] Physician GroupComment on above:Performed By: #### HBSAG, HIV SCREEN, HBSAB, HCV RX PCR, MO, HBCAB, WILLIAM, PLT AB S, RA, CU #### [facility] , #### CMP, LDH, FE and TIBC, HENNA, TSH3, CBC, [id number] #### [facility] [address] [place] [id number] USAEosinophils/100 WBC (Bld)2.1 %Normal.[facility] Physician GroupComment on above:Performed By: #### HBSAG, HIV SCREEN, HBSAB, HCV RX PCR, MO, HBCAB, WILLIAM, PLT AB S, RA, CU #### [facility] , #### CMP, LDH, FE and TIBC, HENNA, TSH3, CBC, [id number] #### [place] [address] USAErythrocyte distribution width (RBC) [Ratio]14.1 %Normal 12.0-14.8[facility] Physician GroupComment on above:Performed By: #### HBSAG, HIV SCREEN, HBSAB, HCV RX PCR, MO, HBCAB, WILLIAM, PLT AB S, RA, CU #### [facility] , #### CMP, LDH, FE and TIBC, HENNA, TSH3, CBC, [id number] #### [place] [id number] USAHematocrit (Bld) [Volume fraction]43.1 %Gttsqn26.8-50.0The [facility] Physician GroupComment on above:Performed By: #### HBSAG, HIV SCREEN, HBSAB, HCV RX PCR, MO, HBCAB, WILLIAM, PLT AB S, RA, CU #### [facility] , #### CMP, LDH, FE and TIBC, HENNA, TSH3, CBC, [id number] #### [facility] [address] [id number] USAHemoglobin (Bld) [Mass/Vol]15.0 g/qFBdpvna80.0-17.0The [facility] Physician GroupComment on above:Performed By: #### HBSAG, HIV SCREEN, HBSAB, HCV RX PCR, MO, HBCAB, WILLIAM, PLT AB S, RA, CU #### [facility] , #### CMP, LDH, FE and TIBC, HENNA, TSH3, CBC, [id number] #### [place] [address] USALymphocytes (Bld) [#/Vol]2.7 10*3/uLNormal1.00-4.8The [facility] Physician GroupComment on above:Performed By: #### HBSAG, HIV SCREEN, HBSAB, HCV RX PCR, MO, HBCAB, WILLIAM, PLT AB S, RA, CU #### [facility] , #### CMP, LDH, FE and TIBC, HENNA, TSH3, CBC, [id number] #### [place] [id number] USALymphocytes/100 WBC (Bld)34.7 %Normal.The [facility] Physician GroupComment on above:Performed By: #### HBSAG, HIV SCREEN, HBSAB, HCV RX PCR, MO, HBCAB, WILLIAM, PLT AB S, RA, CU #### [facility] , #### CMP, LDH, FE and TIBC, HENNA, TSH3, CBC, [id number] #### [place] [id number] [facility] (RBC) [Entitic mass]29.6 blVtaabb60.5-35.2The [facility] Physician GroupComment on above:Performed By: #### HBSAG, HIV SCREEN, HBSAB, HCV RX PCR, MO, HBCAB, WILLIAM, PLT AB S, RA, CU #### [facility] , #### CMP, LDH, FE and TIBC, HENNA, TSH3, CBC, [id number] #### [place] [id number] [facility] (RBC) [Entitic vol]85.2 zZGiqems79.5-101The [facility] Physician GroupComment on above:Performed By: #### HBSAG, HIV SCREEN, HBSAB, HCV RX PCR, MO, HBCAB, WILLIAM, PLT AB S, RA, CU #### [facility] , #### CMP, LDH, FE and TIBC, HENNA, TSH3, CBC, [id number] #### [place] [address] USAMean Corpuscular HGB Conc34.7 g/bBQarcpf51.5-35.6The [facility] Physician GroupComment on above:Performed By: #### HBSAG, HIV SCREEN, HBSAB, HCV RX PCR, MO, HBCAB, WILLIAM, PLT AB S, RA, CU #### [facility] , #### CMP, LDH, FE and TIBC, HENNA, TSH3, CBC, [id number] #### [place] [address] USAMonocytes (Bld) [#/Vol]0.6 10*3/uLNormal0.0-0.8The [facility] Physician GroupComment on above:Performed By: #### HBSAG, HIV SCREEN, HBSAB, HCV RX PCR, MO, HBCAB, WILLIAM, PLT AB S, RA, CU #### [facility] , #### CMP, LDH, FE and TIBC, HENNA, TSH3, CBC, [id number] #### [place] [address] USAMonocytes/100 WBC (Bld)8.0 %Normal.The [facility] Physician GroupComment on above:Performed By: #### HBSAG, HIV SCREEN, HBSAB, HCV RX PCR, MO, HBCAB, WILLIAM, PLT AB S, RA, CU #### [facility] , #### CMP, LDH, FE and TIBC, HENNA, TSH3, CBC, [id number] #### [place] [address] USANeutrophils (Bld) [#/Vol]4.1 10*3/uLNormal1.8-7.7The [facility] Physician GroupComment on above:Performed By: #### HBSAG, HIV SCREEN, HBSAB, HCV RX PCR, MO, HBCAB, WILLIAM, PLT AB S, RA, CU #### [facility] , #### CMP, LDH, FE and TIBC, HENNA, TSH3, CBC, [id number] #### [facility] [address] [address] USANeutrophils/100 WBC (Bld)54.1 %Normal.The [facility] Physician GroupComment on above:Performed By: #### HBSAG, HIV SCREEN, HBSAB, HCV RX PCR, MO, HBCAB, WILLIAM, PLT AB S, RA, CU #### [facility] , #### CMP, LDH, FE and TIBC, HENNA, TSH3, CBC, [id number] #### [place] [address] USANRBC%0.0 /100{WBC}Normal0-0.5The [facility] Comment on above:Performed By: #### HBSAG, HIV SCREEN, HBSAB, HCV RX PCR, MO, HBCAB, WILLIAM, PLT AB S, RA, CU #### [facility] , #### CMP, LDH, FE and TIBC, HENNA, TSH3, CBC, [id number] #### [place] [id number] USAPlatelet mean volume (Bld) [Entitic vol]7.1 fLNormal 6.6-10.1The [facility] Physician GroupComment on above:Performed By: #### HBSAG, HIV SCREEN, HBSAB, HCV RX PCR, MO, HBCAB, WILLIAM, PLT AB S, RA, CU #### [facility] , #### CMP, LDH, FE and TIBC, HENNA, TSH3, CBC, [id number] #### [place] [id number] USAPlatelets (Bld) [#/Vol]134 10*3/mBJhb451-338Ilg [facility] Physician GroupComment on above:Performed By: #### HBSAG, HIV SCREEN, HBSAB, HCV RX PCR, MO, HBCAB, WILLIAM, PLT AB S, RA, CU #### [facility] , #### CMP, LDH, FE and TIBC, HENNA, TSH3, CBC, [id number] #### [place] [id number] USARBC (Bld) [#/Vol]5.06 10*6/uLNormal3.90-5.60The [facility] Physician GroupComment on above:Performed By: #### HBSAG, HIV SCREEN, HBSAB, HCV RX PCR, MO, HBCAB, WILLIAM, PLT AB S, RA, CU #### [facility] , #### CMP, LDH, FE and TIBC, HENNA, TSH3, CBC, [id number] #### [place] [id number] USAWBC (Bld) [#/Vol]7.6 10*3/uLNormal4.1-10.5The [facility] Physician GroupComment on above:Performed By: #### HBSAG, HIV SCREEN, HBSAB, HCV RX PCR, MO, HBCAB, WILLIAM, PLT AB S, RA, CU #### [facility] , #### CMP, LDH, FE and TIBC, HENNA, TSH3, CBC, [id number] #### [place] [id number] USAComprehensive Metabolic Panelon 23-52-2998Pfszpmx [Mass/Vol]4.5 g/dLNormal3.5-5.7The [facility] Physician GroupComment on above: Performed By: #### HBSAG, HIV SCREEN, HBSAB, HCV RX PCR, MO, HBCAB, WILLIAM, PLT AB S, RA, CU #### [facility] , #### CMP, LDH, FE and TIBC, HENNA, TSH3, CBC, [id number] #### [place] [address] USAAlbumin/Globulin [Mass ratio]2.0 {ratio}NormalThe [facility] Hospital Physician GroupComment on above:Performed By: #### HBSAG, HIV SCREEN, HBSAB, HCV RX PCR, MO, HBCAB, WILLIAM, PLT AB S, RA, CU #### [facility] , #### CMP, LDH, FE and TIBC, HENNA, TSH3, CBC, [id number] #### [place] [address] USAALP [Catalytic activity/Vol]86 U/UJqyyot69-269Jbu [facility] Physician GroupComment on above:Performed By: #### HBSAG, HIV SCREEN, HBSAB, HCV RX PCR, MO, HBCAB, WILLIAM, PLT AB S, RA, CU #### [facility] , #### CMP, LDH, FE and TIBC, HENNA, TSH3, CBC, [id number] #### [place] [id number] USAALT [Catalytic activity/Vol]36 U/LNormal7-52The [facility] Physician GroupComment on above:Performed By: #### HBSAG, HIV SCREEN, HBSAB, HCV RX PCR, MO, HBCAB, WILLIAM, PLT AB S, RA, CU #### [facility] , #### CMP, LDH, FE and TIBC, HENNA, TSH3, CBC, [id number] #### [place] [id number] USAAnion gap [Moles/Vol]10.8 mmol/LNormal6.0-15.0The [facility] Physician GroupComment on above:Performed By: #### HBSAG, HIV SCREEN, HBSAB, HCV RX PCR, MO, HBCAB, WILLIAM, PLT AB S, RA, CU #### [facility] , #### CMP, LDH, FE and TIBC, HENNA, TSH3, CBC, [id number] #### [place] [id number] USAAST [Catalytic activity/Vol]25 U/DPzgboz88-65Hxa [facility] Physician GroupComment on above:Performed By: #### HBSAG, HIV SCREEN, HBSAB, HCV RX PCR, MO, HBCAB, WILLIAM, PLT AB S, RA, CU #### [facility] , #### CMP, LDH, FE and TIBC, HENNA, TSH3, CBC, [id number] #### [facility] [address] [address] USABilirubin [Mass/Vol]1.4 mg/dLHigh0.3-1.0The [facility] Physician GroupComment on above:Result Comment: Samples from patients who have taken Naproxen have shown spurious elevation in Total Bilirubin levels. A metabolite of Naproxen, O-desmethylnaproxen, has been shown to interfere with the Jendrcourtneyik-Grof method for measuring Total Bilirubin.Performed By: #### HBSAG, HIV SCREEN, HBSAB, HCV RX PCR, OM, HBCAB, WILLIAM, PLT AB S, RA, CU #### [facility] , #### CMP, LDH, FE and TIBC, HENNA, TSH3, CBC, [id number] #### [facility] [address] [address] USACalcium [Mass/Vol]9.4 mg/dLNormal8.6-10.3The [facility] Physician GroupComment on above:Performed By: #### HBSAG, HIV SCREEN, HBSAB, HCV RX PCR, MO, HBCAB, WILLIAM, PLT AB S, RA, CU #### [facility] , #### CMP, LDH, FE and TIBC, HENNA, TSH3, CBC, [id number] #### [facility] [address] [address] USAChloride [Moles/Vol]106 mmol/WPxajeb52-340Roz [facility] Physician GroupComment on above:Performed By: #### HBSAG, HIV SCREEN, HBSAB, HCV RX PCR, MO, HBCAB, WILLIAM, PLT AB S, RA, CU #### [facility] , #### CMP, LDH, FE and TIBC, HENNA, TSH3, CBC, [id number] #### [facility] [address] [address] USACO2 [Moles/Vol]24.2 mmol/YRgcejm67.0-31.0[facility] Physician GroupComment on above:Performed By: #### HBSAG, HIV SCREEN, HBSAB, HCV RX PCR, MO, HBCAB, WILLIAM, PLT AB S, RA, CU #### [facility] , #### CMP, LDH, FE and TIBC, HENNA, TSH3, CBC, [id number] #### [facility] [address] [place] [address] USACreatinine [Mass/Vol]0.90 mg/dLNormal0.70-1.30The [facility] Physician GroupComment on above:Performed By: #### HBSAG, HIV SCREEN, HBSAB, HCV RX PCR, MO, HBCAB, WILLIAM, PLT AB S, RA, CU #### [facility] , #### CMP, LDH, FE and TIBC, HENNA, TSH3, CBC, [id number] #### [facility] [address] [address] USACreatinine Clr Calc Nsmrjvkx30.62NormalThe [facility] Physician GroupComment on above:Performed By: #### HBSAG, HIV SCREEN, HBSAB, HCV RX PCR, MO, HBCAB, WILLIAM, PLT AB S, RA, CU #### [facility] , #### CMP, LDH, FE and TIBC, HENNA, TSH3, CBC, [id number] #### [facility] [address] [address] USAGFR/1.73 sq M.predicted MDRD (S/P/Bld) [Vol rate/Area] mL/min/{1.73_m2}NormalThe [facility] Physician GroupComment on above:Performed By: #### HBSAG, HIV SCREEN, HBSAB, HCV RX PCR, MO, HBCAB, WILLIAM, PLT AB S, RA, CU #### [facility] , #### CMP, LDH, FE and TIBC, HENNA, TSH3, CBC, [id number] #### [facility] [address] [place] [address] USAGlobulin (S) [Mass/Vol]2.2 g/dLNormalThe [facility] Physician GroupComment on above:Performed By: #### HBSAG, HIV SCREEN, HBSAB, HCV RX PCR, MO, HBCAB, WILLIAM, PLT AB S, RA, CU #### [facility] , #### CMP, LDH, FE and TIBC, HENNA, TSH3, CBC, [id number] #### [place] [address] USAGlucose [Mass/Vol]83 mg/lJVkvezl05-745Acf [facility] Physician GroupComment on above:Result Comment: Random Glucose Reference Range is dependent on time and content of last meal. Glucose of more than 200 mg/dL in a nonstressed, ambulatory subject supports the diagnosis of Diabetes Mellitus. ADA recommended reference rangePerformed By: #### HBSAG, HIV SCREEN, HBSAB, HCV RX PCR, MO, HBCAB, WILLIAM, PLT AB S, RA, CU #### [facility] , #### CMP, LDH, FE and TIBC, HENNA, TSH3, CBC, [id number] #### [place] [address] USAPotassium [Moles/Vol]4.0 mmol/LNormal3.5-5.1The [facility] Physician GroupComment on above:Performed By: #### HBSAG, HIV SCREEN, HBSAB, HCV RX PCR, MO, HBCAB, WILLIAM, PLT AB S, RA, CU #### [facility] , #### CMP, LDH, FE and TIBC, HENNA, TSH3, CBC, [id number] #### [place] [address] USAProtein [Mass/Vol]6.7 g/dLNormal6.4-8.9The [facility] Physician GroupComment on above:Performed By: #### HBSAG, HIV SCREEN, HBSAB, HCV RX PCR, MO, HBCAB, WILLIAM, PLT AB S, RA, CU #### [facility] , #### CMP, LDH, FE and TIBC, HENNA, TSH3, CBC, [id number] #### [facility] [address] [address] USASodium [Moles/Vol]137 mmol/BPoywqp176-493Khf [facility] Physician GroupComment on above:Performed By: #### HBSAG, HIV SCREEN, HBSAB, HCV RX PCR, MO, HBCAB, WILLIAM, PLT AB S, RA, CU #### [facility] , #### CMP, LDH, FE and TIBC, HENNA, TSH3, CBC, [id number] #### [facility] [address] [address] USAUrea nitrogen [Mass/Vol]14 mg/dLNormal7-25The [facility] Physician GroupComment on above:Performed By: #### HBSAG, HIV SCREEN, HBSAB, HCV RX PCR, MO, HBCAB, WILLIAM, PLT AB S, RA, CU #### [facility] , #### CMP, LDH, FE and TIBC, HENNA, TSH3, CBC, [id number] #### [facility] [address] [id number] USACopperon 85-38-7624Ahcpbb40 ug/pDYquncn86-669Ufq [facility] Physician GroupComment on above:Result Comment: This test was developed and its performance characteristics determined by [facility]. It has not been cleared or approved by the Food and Drug Administration. Detection Limit = 5 Performed at: [address] [id number] Training Engineer: Marco Coronel MD, Phone: [phone] By: #### HBSAG, HIV SCREEN, HBSAB, HCV RX PCR, MO, HBCAB, WILLIAM, PLT AB S, RA, CU #### [facility] , #### CMP, LDH, FE and TIBC, HENNA, TSH3, CBC, [id number] #### [facility] [address] [place] [address] USACopper measurementOrdered By: Adi Lara on 02-19-2024 Basophil percentageBasophil -763UakadzqoeOur Lady Of [facility] Comment on above:This test was developed and its performance characteristicsdetermined by [facility]. It has not been cleared orapproved by the Food and Drug Administration. Detection Limit = 5Performed at: [address] [id number] Director: Marco Coronel MD, Phone: [phone] [Mass/volume] in Serum or PlasmaOrdered By: Adi Lara on 08-11-8677Plommxfa [Mass/Vol]Ferritin [Mass/volume] in Serum or Wdnsde10.9-336.2FMarion HospitalFerritin [Mass/Vol]157.4 ng/mL Vsvppz99.9-336.2FMarion HospitalComment on above:Performed By: #### HBSAG, HIV SCREEN, HBSAB, HCV RX PCR, MO, HBCAB, WILLIAM, PLT AB S, RA, CU #### [facility] , #### CMP, LDH, FE and TIBC, HENNA, TSH3, CBC, [id number] #### [facility] [address] [place] [address] USAFolate [Mass/volume] in Serum or PlasmaOrdered By: Adi Monroy on 23-98-4048Bjincp [Mass/Vol]Folate [Mass/volume] in Serum or Plasma >5.9[facility] - AndersonComment on above:Folate reference range: >5.9 ng/mlThe WHO technical consultation on folate and vitamin d61wiqptophblkb has determined that folate concentrations lessthan 4 ng/ml are considered deficient.Folate [Mass/Vol]9.6 ng/mL>5.9[facility] - AndersonComment on above:Folate reference range: >5.9 ng/mlThe WHO technical consultation on folate and vitamin v06meslzhuanlvp has determined that folate concentrations lessthan 4 ng/ml are considered deficient.HIV 1/O/2 Antigen/Antibodyon 14-30-2504THM Screen 4th GenerationNon-ReactiveNormalNon ReactiveThe [facility] Physician GroupComment on above:Result Comment: HIV-1/HIV-2 antibodies and HIV-1 p24 antigen were NOT detected. There is no laboratory evidence of HIV infection. HIV Negative Performed at: [facility] [address] [place] [id number] Training Engineer: Jeffery Washburn PhD, Phone: [phone] PERFORMED BY: [place] [address] PATHOLOGIST [employer] JABARI GALLAGHER M.D.Performed By: #### HBSAG, HIV SCREEN, HBSAB, HCV RX PCR, MO, HBCAB, WILLIAM, PLT AB S, RA, CU #### [facility] , #### CMP, LDH, FE and TIBC, HENNA, TSH3, CBC, [id number] #### [place] [address] USAHIV antibody and antigen panelOrdered By: Adi Lara on 41-19-5039KZM 1+2 Ab+HIV1 p24 Ag IA QlHIV 1 and HIV-2 antibody assay with HIV-1 p24 antigen detectionNon [facility] HospitalComment on above:HIV-1/HIV-2 antibodies and HIV-1 p24 antigen were NOTdetected. There is no laboratory evidence of HIV infection.HIV NegativePerformed at: [facility] [place] [id number] Director: Jeffery Washburn PhD, Phone: [phone] C Ab wRfx to Qnt PCRon 81-15-6531Zqnblvaox C Virus AntibodyNon-ReactiveNormalNon ReactiveThe [facility] Physician GroupComment on above:Performed By: #### HBSAG, HIV SCREEN, HBSAB, HCV RX PCR, MO, HBCAB, WILLIAM, PLT AB S, RA, CU #### [facility] , #### CMP, LDH, FE and TIBC, HENNA, TSH3, CBC, [id number] #### [facility] [address] [place] [address] USAInterpretation Hepatitis CCommentNormal.The [facility] Physician GroupComment on above:Result Comment: Not infected with HCV unless early or acute infection is suspected (which may be delayed in an immunocompromised individual), or other evidence exists to indicate HCV infection.Performed By: #### HBSAG, HIV SCREEN, HBSAB, HCV RX PCR, MO, HBCAB, WILLIAM, PLT AB S, RA, CU #### [facility] , #### CMP, LDH, FE and TIBC, HENNA, TSH3, CBC, [id number] #### [place] [address] USAHepatitis B Core Antibodyon 99-51-2558Yzxmzxvve B Core AntibodyNegativeNormalNegativeThe [facility] Physician GroupComment on above: Result Comment: Performed at: [facility] [place] [id number] Training Engineer: Jeffery Washburn PhD, Phone: [phone] By: #### HBSAG, HIV SCREEN, HBSAB, HCV RX PCR, MO, HBCAB, WILLIAM, PLT AB S, RA, CU #### [facility] , #### CMP, LDH, FE and TIBC, HENNA, TSH3, CBC, [id number] #### [place] [id number] USAHepatitis B Surface Antibodyon 41-14-6058Mzwbngzgn B Surface AntibodyNon-ReactiveNormal.The [facility] Physician GroupComment on above:Result Comment: Non Reactive: Not immune to HBV infection. Equivocal: Unable to determine if anti-HBs is present at levels consistent with immunity. Reactive: Anti-HBs concentration detected at greater than 10 mIU/mL. Individual is considered to be immune to infection with HBV.Performed By: #### HBSAG, HIV SCREEN, HBSAB, HCV RX PCR, MO, HBCAB, WILLIAM, PLT AB S, RA, CU #### [facility] , #### CMP, LDH, FE and TIBC, HENNA, TSH3, CBC, [id number] #### [facility] [address] [place] [address] USAHepatitis B Surface Antigenon 29-02-8385PKlRo Screen NegativeNormalNegativeThe [facility] Physician GroupComment on above:Result Comment: PERFORMED BY: [place] [address] PATHOLOGIST [employer] JABARI GALLAGHER M.D.Performed By: #### HBSAG, HIV SCREEN, HBSAB, HCV RX PCR, MO, HBCAB, WILLIAM, PLT AB S, RA, CU #### [facility] , #### CMP, LDH, FE and TIBC, HENNA, TSH3, CBC, [id number] #### [place] [address] USAHepatitis B virus core antibody assayOrdered By: Adi Monroy on 74-37-2801Djqvccuom B Core Total AntibodyNegativeNegativeOur Lady Of Mercy Hospital - AndersonComment on above:Performed at: - [facility] [place] [id number] Director: Jeffery Washburn PhD, Phone: [phone] C virus IgG Ab [Presence] in Serum or Plasma by Immunoassay Ordered By: Adi Lara on 59-51-2932KZR IgG IA QlHepatitis C virus IgG Ab [Presence] in Serum or Plasma by ImmunoassayNon ReactiveOur Lady Of Mercy Hospital - AndersonHCV IgG IA QlNon-ReactiveNon ReactiveOur Lady Of Mercy Hospital - AndersonIron [Mass/volume] in Serum or PlasmaOrdered By: Adi Lara on 75-44-8667Aemn [Mass/Vol]Iron [Mass/volume] in Serum or Ofprtv01-136KpcvivzafOur Lady Of Mercy Hospital - AndersonIron [Mass/Vol]89 ug/qYKjahly16-764UnwgfkwqdOur Lady Of Mercy Hospital - AndersonComment on above:Performed By: #### HBSAG, HIV SCREEN, HBSAB, HCV RX PCR, MO, HBCAB, WILLIAM, PLT AB S, RA, CU #### [facility] , #### CMP, LDH, FE and TIBC, HENNA, TSH3, CBC, [id number] #### [facility] [address] [place] [address] USAIron and TIBC Profileon 02-19-2024% Iron Ezgfcrlqbs60.3 % Wtzcds22-13Rfe [facility] Luke'S HospitalComment on above:Performed By: #### HBSAG, HIV SCREEN, HBSAB, HCV RX PCR, MO, HBCAB, WILLIAM, PLT AB S, RA, CU #### [facility] , #### CMP, LDH, FE and TIBC, HENNA, TSH3, CBC, [id number] #### [facility] [address] [place] [address] USATotal Iron Binding Vfhggqbx957 ug/pWKubnoo411-918Yxh [facility] Luke'S HospitalComment on above:Performed By: #### HBSAG, HIV SCREEN, HBSAB, HCV RX PCR, MO, HBCAB, WILLIAM, PLT AB S, RA, CU #### [facility] , #### CMP, LDH, FE and TIBC, HENNA, TSH3, CBC, [id number] #### [facility] [address] [place] [address] USALDH Lactate Dehydrogenaseon 14-63-4914VIJ Lactate Qtzsszarjlsui769 U/RTpsotz957-029Arp [facility] Luke'S HospitalComment on above: Performed By: #### HBSAG, HIV SCREEN, HBSAB, HCV RX PCR, MO, HBCAB, WILLIAM, PLT AB S, RA, CU #### [facility] , #### CMP, LDH, FE and TIBC, HENNA, TSH3, CBC, [id number] #### [facility] [address] [place] [address] USANo Panel InformationOrdered By: Adi Lara on 70-34-0861Cerq-Platelet Glycoprotein IVNegativeNegativeOur Lady Of Mercy Hospital - AndersonComment on above:Performed at: - [facility] [id number] Director: Marco Coronel MD, Phone: [phone] C InterpretationComment.[facility] Comment on above:Not infected with HCV unless early or acute infection issuspected (which may be delayed in an immunocompromisedindividual), or other evidence exists to indicate HCVinfection.Platelet Antibody, Serumon 02-19-2024 GLycoprotein IV AntibodyNegativeNormalNegativeSaras[facility] Phys[facility] Comment on above:Result Comment: Performed at: [facility] [id number] Training Engineer: Marco Coronel MD, Phone: [phone] By: #### HBSAG, HIV SCREEN, HBSAB, HCV RX PCR, MO, HBCAB, WILLIAM, PLT AB S, RA, CU #### [facility] , #### CMP, LDH, FE and TIBC, HENNA, TSH3, CBC, [id number] #### [place] [address] USAHla Class 1 AntibodyNegativeNormalNegativeSarasota [facility] Hospital [facility] Physician GroupComment on above:Performed By: #### HBSAG, HIV SCREEN, HBSAB, HCV RX PCR, MO, HBCAB, WILLIAM, PLT AB S, RA, CU #### [facility] , #### CMP, LDH, FE and TIBC, HENNA, TSH3, CBC, [id number] #### [facility] [address] [place], [place] [id number] USAIa/IIa AntibodiesNegativeNormalNegativeSarasota Memorial Hospital - Venice Physician GroupComment on above:Performed By: #### HBSAG, HIV SCREEN, HBSAB, HCV RX PCR, MO, HBCAB, WILLIAM, PLT AB S, RA, CU #### [facility] , #### CMP, LDH, FE and TIBC, HENNA, TSH3, CBC, [id number] #### [place] [id number] USAIb/IX AntibodyNegativeNormalNegativeSarasota Memorial Hospital - [facility] Physician GroupComment on above:Performed By: #### HBSAG, HIV SCREEN, HBSAB, HCV RX PCR, MO, HBCAB, WILLIAM, PLT AB S, RA, CU #### [facility] , #### CMP, LDH, FE and TIBC, HENNA, TSH3, CBC, [id number] #### [facility] [address] [place] [address] USAIIb/IIIa AntibodyNegativeNormalNegativeThe [facility] Physician GroupComment on above:Performed By: #### HBSAG, HIV SCREEN, HBSAB, HCV RX PCR, MO, HBCAB, WILLIAM, PLT AB S, RA, CU #### [facility] , #### CMP, LDH, FE and TIBC, HENNA, TSH3, CBC, [id number] #### [facility] [address] [place] [address] USARheumatoid Factoron 31-04-2205Jpawvqoqsf Factor<10.0Normal <14.0The [facility] Physician [facility] At GulfportComment on above:Result Comment: Performed at: [facility] [address] [place], [place] [id number] Training Engineer: Jeffery Washburn PhD, Phone: [phone] By: #### HBSAG, HIV SCREEN, HBSAB, HCV RX PCR, MO, HBCAB, WILLIAM, PLT AB S, RA, CU #### [facility] , #### CMP, LDH, FE and TIBC, HENNA, TSH3, CBC, [id number] #### [place] [id number] USASerum HLA antibody detection by immunoassayOrdered By: Adi Lara on 15-65-7740OPN Ab IA Ql (S)Serum HLA antibody detection by immunoassayNegativeOur Lady Of Mercy Hospital - AndersonHLA Ab IA Ql (S)Negative NegativeAkron Children's Hospitalerum angiotensin converting enzyme (MO) measurementOrdered By: Adi Lara on 72-65-5415Vlyjzmbvtdc converting enzyme [Catalytic activity/Vol]Serum angiotensin converting enzyme (MO) dvdypbiaqta80-06IocztvkhkOur Lady Of Mercy Hospital - AndersonComment on above:Performed at: [facility] [address] [place], [place] [id number] Director: Jeffery Washburn PhD, Phone: [phone] converting enzyme [Catalytic activity/Vol]33 [id number] Lady Of Mercy Hospital - AndersonComment on above: Performed at: [facility] [id number] [place], [place] [id number] Director: Jeffery Washburn PhD, Phone: [phone] Comment: Performed at: [facility] [address] [place], [place] [id number] Training Engineer: Jeffery Washburn PhD, Phone: [phone] By: #### HBSAG, HIV SCREEN, HBSAB, HCV RX PCR, MO, HBCAB, WILLIAM, PLT AB S, RA, CU #### [facility] , #### CMP, LDH, FE and TIBC, HENNA, TSH3, CBC, [id number] #### [place] [address] USASerum hepatitis B virus surface antibody detectionOrdered By: Adi Lara on [id number] surface Ab Ql (S)Hepatitis B virus surface Ab [Presence] in Serum.[facility] - AndersonComment on above:Non Reactive: Not immune to HBV infection. Equivocal: Unable to determine if anti- HBs is present atlevels consistent with immunity. Reactive: Anti-HBs concentration detected at greater than 10 mIU/mL. Individual is considered to be immune to infection with HBV.HBV surface Ab Ql (S)Non-Reactive.[facility] - AndersonComment on above:Non Reactive: Not immune to HBV infection. Equivocal: Unable to determine if anti-HBs is present atlevels consistent with immunity. Reactive: Anti-HBs concentration detected at greater than 10 mIU/mL. Individual is considered to be immune to infection with HBV. Serum homogeneous pattern antinuclear antibody (WILLIAM) titerOrdered By: Adi Monroy on 14-94-6673Wegygjixna nuclear Ab pattern (S) [Titer]Serum homogeneous pattern antinuclear antibody (WILLIAM) titerOur [facility] Of [facility] Homogenous nuclear Ab pattern (S) [Titer]N/AFMarion Hospital Serum nuclear antibody titerOrdered By: Adi Lara on 97-71-0799Kmfkskf Ab (S) [Titer]Serum nuclear antibody titer.[facility] - AndersonComment on above:Negative <1:80 Borderline 1:80 Positive >1:80ICAP nomenclature: AC- 0For more information about Hep-2 cell patterns useN4MD.Bag of Ice, the official website for theInternational Consensus on Antinuclear Antibody (WILLIAM)Patterns (ICAP).Performed at: [id number] Director: Jeffery Washburn PhD, Phone: [phone] Ab (S) [Titer] Negative.[facility] - AndersonComment on above:Negative <1:80 Borderline 1:80 Positive >1:80ICAP nomenclature: AC-0For more information about Hep-2 cell patterns useN4MD.Bag of Ice, the official website for theInternational Consensus on Antinuclear Antibody (WILLIAM)Patterns (ICAP).Performed at: [id number] Director: Jeffery Washburn PhD, Phone: [phone] or plasma hepatitis B virus surface antigen detection by immunoassayOrdered By: Adi Lara on 77-05-1396FDY surface Ag IA QlHepatitis B virus surface Ag [Presence] in Serum or Plasma by ImmunoassayNegSumma HealthHBV surface Ag IA QlNegativeNegMercy Health St. Vincent Medical Centererum or plasma iron binding capacity measurement (mass/volume)Ordered By: Adi Lara on 85-95-0124Quhq binding capacity [Mass/Vol]Iron binding capacity [Mass/volume] in Serum or Xasjad521-503Zgkinadux18 Lawrence StreetIron binding capacity [Mass/Vol]417 ug/cU021-063Tgjaocbci47 Morales Streeterum or plasma iron saturation measurement (mass fraction)Ordered By: Adi Lara on 02-19-2024 Iron saturation [Mass fraction]Iron saturation [Mass Fraction] in Serum or Eutpdz39-84EbzamktnpOur Lady Of Mercy Hospital - AndersonIron saturation [Mass fraction]21.3 %2050Akron Children's Hospitalerum or plasma rheumatoid factor measurement (units/volume)Ordered By: Adi Lara on 40-70-1938Sbftorrqfp factor QnSerum or plasma rheumatoid factor measurement (units/volume)<14.0 [facility] - AndersonComment on above:Performed at: [address] [id number] Director: Jeffery Washburn PhD, Phone: [phone] factor Qn[IU]/mL<14.0[facility] - AndersonComment on above:Performed at: [facility] [address] [id number] Director: Jeffery Washburn PhD, Phone: [phone] platelet glycoprotein IIb/IIIa antibody detection by immunoassayOrdered By: Adi Lara on 39-61-7187Ipmwtkun glycoprotein IIb/IIIa Ab IA Ql (S)Serum platelet glycoprotein IIb/IIIa antibody detection by immunoassayNegative [facility] - AndersonPlatelet glycoprotein IIb/IIIa Ab IA Ql (S) NegativeNegativeAkron Children's Hospitalerum platelet glycoprotein Ia/IIa antibody detection by immunoassayOrdered By: Adi Lara on 02-19-2024 Platelet glycoprotein Ia/IIa Ab IA Ql (S)Serum platelet glycoprotein Ia/IIa antibody detection by immunoassayNegativeOur Lady Of [facility] Platelet glycoprotein Ia/IIa Ab IA Ql (S)NegativeNegSumma HealthThyrotropin [Units/volume] in Serum or PlasmaOrdered By: Adi Monroy on 08-41-5287XLS QnThyrotropin [Units/volume] in Serum or Plasma 0.45-5.33[facility] AndersonTS Qn2.50 m[IU]/LNormal0.45-5.33 [facility] - AndersonComment on above:Result Comment: PERFORMED BY: [facility] [address] [place] [address] PATHOLOGIST [employer] JABARI GALLAGHER M.D.Performed By: #### HBSAG, HIV SCREEN, HBSAB, HCV RX PCR, MO, HBCAB, WILLIAM, PLT AB S, RA, CU #### [facility] , #### CMP, LDH, FE and TIBC, HENNA, TSH3, CBC, [id number] #### [facility] [address] [place] [address] USATransferrin [Mass/volume] in Serum or PlasmaOrdered By: Adi Lara on 60-53-8137Xfcgrpfsxqc [Mass/Vol]Transferrin [Mass/volume] in Serum or Ywqzyq668-313BftbttjatOur Lady Of Mercy Hospital - AndersonTransferrin [Mass/Vol]298 mg/dYRzqwdz657-971ZxyyowlfiOur Lady Of Mercy Hospital - AndersonComment on above:Performed By: #### HBSAG, HIV SCREEN, HBSAB, HCV RX PCR, MO, HBCAB, WILLIAM, PLT AB S, RA, CU #### [facility] , #### CMP, LDH, FE and TIBC, HENNA, TSH3, CBC, [id number] #### [facility] [address] [place] [id number] USAVit. B12/Folate Profileon 26-33-6573Snvlst0.6 ng/mLNormal >5.9[facility] Physician GroupComment on above:Result Comment: Folate reference range: >5.9 ng/ml The WHO technical consultation on folate and vitamin b12 deficiencies has determined that folate concentrations less than 4 ng/ml are considered deficient.Performed By: #### HBSAG, HIV SCREEN, HBSAB, HCV RX PCR, MO, HBCAB, WILLIAM, PLT AB S, RA, CU #### [facility] , #### CMP, LDH, FE and TIBC, HENNA, TSH3, CBC, [id number] #### [facility] [address] [place] [address] USAVitamin B12 ser/plasOrdered By: Adi Lara on 14-03-9187Njqhrxlwx (Vitamin B12) [Mass/Vol]Vitamin B12 ser/sgis722-579XrgkybpknOur Lady Of Mercy Hospital - AndersonCobalamin (Vitamin B12) [Mass/Vol]344 pg/hAKhrezf135-698 [facility] - AndersonComment on above:Performed By: #### HBSAG, HIV SCREEN, HBSAB, HCV RX PCR, MO, HBCAB, WILLIAM, PLT AB S, RA, CU #### [facility] , #### CMP, LDH, FE and TIBC, HENNA, TSH3, CBC, [id number] #### [facility] [address] [place] [address] USABasophils Auto (Bld) [#/Vol]on 41-84-4791Gaivxoqkq (Bld) [#/Vol]0.1 10 3/uL0.0-0.1FMarion HospitalBasophils/100 WBC Auto (Bld)on 48-51-9896Msviwpmdc/100 WBC (Bld)1.1 %0.2-2.0[facility] AndersonCholesterol in LDL Calc [Mass/Vol]on 96-33-0043Mvitkiklwmn in LDL [Mass/Vol]49.8 mg/dLOur Lady Of Mercy Hospital - AndersonComment on above:<100 mg/dl UAKBYAT557-181 mg/dl NEAR OR ABOVE DGPBEYR433-587 mg/dl BORDERLINE UTJD888-220 mg/dl HIGH>190 mg/dl VERY HIGHCholesterol in VLDL Calc [Mass/Vol]on 01-31-2024 Cholesterol in VLDL [Mass/Vol]29.2 mg/dLOur Lady Of Mercy Hospital - Anderson Eosinophils/100 WBC Auto (Bld)on 86-58-4186Nkkyepjlhop/100 WBC (Bld)2.2 %0.9-7.0 [facility] - AndersonErythrocyte distribution width Auto (RBC) [Ratio]on 67-39-0048Gertvytrkzp distribution width (RBC) [Ratio]13.1 %11.0-15.0 [facility] AndersonEstimated glomerular filtration rate (GFR) non- Americanon 50-62-0639PUF/1.73 sq M.predicted among non-blacks MDRD (S/P/Bld) [Vol rate/Area]mL/min/{1.73_m2}>=60 mL/min/1.73m 2FMarion HospitalGlobulin Calc (S) [Mass/Vol]on 16-57-0809Nxxbswvk (S) [Mass/Vol] 3.4 g/dLOur Lady Of Mercy Hospital - AndersonGlucose mean value [Mass/volume] in Blood Estimated from glycated hemoglobinon 18-81-2718Ozppqgt glucose Estimated from glycated hemoglobin (Bld) [Mass/Vol]126 mg/dLOur Lady Of Mercy Hospital - AndersonHematocrit Auto (Bld) [Volume fraction]on 57-37-6712Lcfcghcoiw (Bld) [Volume fraction]47.0 %42.0-54.0[facility] - AndersonHemoglobin [Mass/volume] in Bloodon 17-88-7471Psgtknuaeq (Bld) [Mass/Vol]16.2 g/dL14.0-18.0 [facility] AndersonLaboratory - Chemistry and Chemistry - challengeon 80-13-5371Bryeswz [Mass/Vol]4.1 g/dL3.4-5.0[facility] AndersonALP [Catalytic activity/Vol]95 U/I21-094UqhilavsbOur Lady Of Mercy Hospital - AndersonALT [Catalytic activity/Vol]49 U/J84-51BtetigtycOur Lady Of Mercy Hospital - Anderson AST [Catalytic activity/Vol]30 U/Y35-56WiagcimsvOur Lady Of Mercy Hospital - Anderson Bilirubin [Mass/Vol]1.3 mg/dLHigh0.2-1.0[facility] AndersonCalcium [Mass/Vol]8.9 mg/dL8.5-10.1FMarion HospitalChloride [Moles/Vol]103 mmol/N99-003ErpztnfpkOur Lady Of Mercy Hospital - AndersonCholesterol [Mass/Vol]122 mg/dL<=200[facility] - AndersonCholesterol in HDL [Mass/Vol]43 mg/kL31-29VaresmspcOur Lady Of Mercy Hospital - AndersonComment on above:> or =60 mg/dl - LOW CARDIOVASCULAR RISK<40 mg/dl - HIGH CARDIOVASCULAR RISKCO2 [Moles/Vol]25.5 mmol/L21.0-32.0[facility] AndersonCreatinine [Mass/Vol]1.03 mg/dL0.70-1.30[facility] - AndersonGFR/1.73 sq M.predicted MDRD (S/P/Bld) [Vol rate/Area]mL/min/{1.73_m2}>=60 mL/min/1.73m 2 [facility] AndersonGlucose [Mass/Vol]106 mg/aE85-507TsgyaodqgOur Lady Of Mercy Hospital - AndersonPotassium [Moles/Vol]4.0 mmol/L3.5-5.1FMarion HospitalProtein [Mass/Vol]7.5 g/dL6.4-8.2FMarion Hospital Sodium [Moles/Vol]140 mmol/H442-528KcffkvhjkOur Lady Of Mercy Hospital - AndersonTriglyceride [Mass/Vol]146 mg/dL<=150[facility] AndersonUrea nitrogen [Mass/Vol]9.0 mg/dL7.0-18.0[facility] - AndersonUrea nitrogen/Creatinine [Mass ratio]8.7 mg/mgOur Lady Of Mercy Hospital - Anderson Laboratory - Hematology and Cell countson 83-77-2123QkV9f (Bld) [Mass fraction] 6.0 %4.5-6.2FMarion HospitalComment on above:ADA RECOMMENDED LIMIT 4.0 - 6.0ADA THERAPEUTIC TARGET < 7.0ACTION SUGGESTED> 7.0Immature granulocytes/100 WBC (Bld)1.0 %High0.0-0.5FMarion Hospital Leukocytes [#/volume] corrected for nucleated erythrocytes in Blood by Automated counon 62-11-7684JTK corrected for nucl RBC Auto (Bld) [#/Vol]8.4 10 3/uL 4.0-11.0[facility] - AndersonLymphocytes Auto (Bld) [#/Vol]on 73-45-9231Cvwlvslzshj (Bld) [#/Vol]2.8 10 3/uL1.2-3.8[facility] - AndersonLymphocytes/100 WBC Auto (Bld)on 20-74-1765Jkvtjkropgu/100 WBC (Bld)33.3 % 20.5-60.0[facility] - AndersonMCH Auto (RBC) [Entitic mass]on 65-81-3237FZX (RBC) [Entitic mass]29.6 pg25.9-34.0[facility] - AndersonMCHC Auto (RBC) [Mass/Vol]on 65-74-7701AMDV (RBC) [Mass/Vol]34.5 g/dL 29.9-35.2FMarion HospitalMCV Auto (RBC) [Entitic vol]on 74-91-6705CWX (RBC) [Entitic vol]85.9 fL80.0-94.0[facility] AndersonMicroalbumin [Mass/volume] in Urineon 58-90-8757Wkiuzrj DL <= 20 mg/L (U) [Mass/Vol]mg/dL<=30.0[facility] AndersonMonocytes Auto (Bld) [#/Vol]on 83-86-5507Mvtacbbeq (Bld) [#/Vol]0.5 10 3/uL0.3-0.8[facility] AndersonMonocytes/100 WBC Auto (Bld)on 94-43-9173Denbgvfoc/100 WBC (Bld) 6.0 %1.7-12.0[facility] - AndersonNeutrophils Auto (Bld) [#/Vol]on 05-30-7898Rafsctoisvd (Bld) [#/Vol]4.7 10 3/uL1.4-6.5FMarion HospitalNeutrophils/100 WBC Auto (Bld)on 88-74-3441Dbtcnpgzocr/100 WBC (Bld)56.4 % 43.0-75.0[facility] - AndersonNo Panel Informationon 31-50-7732Ariyi Random Fbgnjbsygu59.85 mg/dL20.00-300.00[facility] Eosinophils # (Auto)0.2 10 3/uL0.0-0.7FMarion HospitalImmature Granulocyte # (Auto)0.08 10 3/uLHigh0.00-0.03[facility] Platelet mean volume Auto (Bld) [Entitic vol]on 82-41-4905Oruaukhp mean volume (Bld) [Entitic vol]8.7 fLLow9.5-13.5FMarion HospitalPlatelets Auto (Bld) [#/Vol]on 13-12-2402Fjivopybo (Bld) [#/Vol]142 10 3/zIJyn237-033 [facility] - AndersonRBC Auto (Bld) [#/Vol]on 50-04-3490ZCW (Bld) [#/Vol]5.47 10 6/uL4.70-6.10[facility] Children's Hospitalerum or plasma albumin/globulin mass ratioon 15-72-1303Zibwmbf/Globulin [Mass ratio]1.2 {ratio} [facility]'s Hospitalerum or plasma anion gap determinationon 66-63-6911Jcuvy gap [Moles/Vol]15.5 mmol/LFCleveland Clinic Children's Hospital for Rehabilitationerum or plasma total cholesterol/high density lipoprotein (HDL) cholesterol mass rat on 16-10-7562Fcbbfpahurr.total/Cholesterol in HDL [Mass ratio]2.8 {ratio} [facility] AndersonComment on above:3.3 - 4.4 LOW RISK4.4 - 7.1 AVERAGE RISK7.1 - 11.0 MODERATE RISK>11.0 HIGH RISKCHEMISTRYOrdered By: SYSTEM SYSTEM on 48-39-7823Ujarsbxc specific Ag [Mass/Vol]0.4 ng/mLNormal0.1 - 3.5 ng/mLRemisol ChemComment on above:Interpretive Data: The concentration of PSA determined by different manufacturers can vary due to differences in assay methods and reagent specificity. Values obtained from different assay methods cannot be used interchangeably. The methodology used for this result was chemiluminescence using [employer]'s Dubaki Hybritech PSA reagent.Urology Office/Clinic Noteon 04-44-2456Pzqtkgq Office/Clinic NoteUrology Office/Clinic Note Chief Complaint OAB HPI Staff [...] Urology [address], [place] [id number] Additional Instructions: 6 mos (no labs) Patient [...] Oral, Daily Zoloft 100 (more content not included)...[facility] Comment on above:Result Comment: Electronically Signed By: Elia HUERTA MD\.br\Date and Time Signed: 10/14/23 12:48 EDT\.br\Electronically Co-Signed By: Karen Chaudhary\.br\Date and Time Co-Signed: 10/14/23 12:33 EDTScreenson [id number]#1.00TIFFNoNationwide Children's [id number]#1.00TIFF [facility] HospitalAmbulatory Visit Summaryon 86-46-2439Reugxwiqzi Visit Summary RACHEL ACKERMAN :1950 Visit Date:08/13/2023 [...] obstructive sleep apnea and snoring (2000), Tonsillectomy. Discharge Vitals Temperature (Temporal Artery) 36.6 ?C Heart Rate (Peripheral) 73 Respiratory Rate 20 Blood Pressure 150/80 Height 179 cm Height 70 in Weight 109 kg Weight 239.8 lb BMI 34.02 What to do next Scheduled Follow-Up Appointments Saturday 11:45 AM EDT With: DEANNA WADDELL, Elia Cardona Where: [facility] Educationon 09-55-7536Niduprk EducationObstetrics and Gynecology Overactive Bladder, Adult Overactive bladder [...] You may also have very sensitive muscles thatmake your bladder squeeze too soon. This condition [...] as stroke, dementia, Parkinson's disease, or multiple sclerosis(MS). ? Eat or drink alcohol, spicy food, [...] health care provider. General instructions ? Take bdci-ucl-ogrgwof and prescription medicines only as told by [...] care provider monitor yo (more content not included)...[facility] HospitalUrology Office/Clinic Noteon 70-77-6860Plrfsmf Office/Clinic NoteChief Complaint OV HPI Staff 72 year old [...] with voice recognition artificial intelligence software, specifically [employer], [employer] and or [employer]. Substitutions may have occurred due to the [...] TURP. He feels that this originally somewhat improvedbut is worsening. He does note he has frequency every hour. His primary stream symptoms have significantly improved since TURP. It appears that what remains, are bladder symptoms. Patient denies constipation. Does have 2 to 3 cups of coffee daily, advised on how bladder irritants may exacerbate his urinary symptoms. Drinks a lot of water throughout the day otherwise. He is nottaking any diuretics. Discussed use of anticholinergic and [...] day(s), # 30 tab(s), Refills(s) 0, Pharmacy: [facility] #[id number], 179, cm, 08/13/23 9:15:00 EDT, Height/Length Dosing, 109, kg, 08/13/23 9:15:00 EDT, Weight Dosing solifenacin, 10 mg = 1 tab(s), Oral, Daily, to start after completion of 1 month 5 mg dose, # 30 tab(s), Refills(s) 1, Pharmacy: [facility] #[id number], 179, cm, 08/13/23 9:15:00 EDT, Height/Length Dosing, 109, kg, 08/13/23 9:15:00 EDT, Weight Dosing 2. Urge urinary incontinence (N39.41: Urge incontinence) Patient is wearing depends throughout the day, changes 2-3 times. See #1. Ordered: solifenacin, 5 mg = 1 tab(s), Oral, Daily, X 30 day(s), # 30 tab(s), Refills(s) 0, [id number] 179, cm, 08/13/23 9:15:00 EDT, Height/Length Dosing, 109, kg, 08/13/23 9:15:00 EDT, Weight Dosing solifenacin, 10 mg = 1 tab(s), Oral, Daily, to start after completion of 1 month 5 mg dose, # 30 tab(s), Refills(s) 1, [id number], 179, cm, 08/13/23 9:15:00 EDT, Height/Length [...] well. Continue timed voids, voiding maneuvers. Ordered: [id number] Measure Post Void residual urine and/or bladder capacity by US- non-imaging 5. Gross hematuria (R31.0: Gross hematuria) At prior OV was still experiencing hematuria af (more content not included)... [facility] HospitalComment on above:Result Comment: Electronically Signed By: MASOOD Camilo APRN, [place] X\.br\Date and Time Signed: 08/13/23 09:53 EDTAmbulatory Visit Summaryon 66-26-7355Urfjplcbpt Visit Summary RACHEL ACKERMAN :1950 Visit Date:05/06/2023 [...] Where: [facility] [address] [place] [address]- Medications What How Much When Instructions Unchanged finasteride (finasteride 5 mg Tab) 1 Tablets By Mouth Every day Unchanged acetaminophen (acetaminophen 500 mg Tab) By Mouth Every 6 hours Contact prescribing physician if questions or concerns Unchanged albuterol (Ventolin HFA 90 mcg/ inh Aerosol) Inhalation Every 6 hours Contact prescribingphysician if questions or concerns Unchanged atorvastatin (atorvastatin 80 mg Tab) 1 Tablets By Mouth Every day Contact prescribing physician if questions or concerns Unchanged busPIRone (busPIRone 30 mg oral tablet) 1 Tablets By Mouth 2 times a day Contact prescribing physician if questions or concerns Unchanged ezetimibe (Zetia 10 mg Tab) 1 Tablets By Mouth Every day Contact prescribing physician ifquestions or concerns Unchanged ferrous sulfate (ferrous sulfate [...] during the night to (more content not included)...[facility] Educationon 01-42-7205Xxnbqpy EducationUrology Benign Prostatic Hyperplasia Benign prostatic hyperplasia (BPH) [...] urine that may remain in your bladder afteryou finish urinating. ? A digital rectal exam. [...] this procedure, a tool is inserted through theopening at the tip of the penis (urethra). [...] procedure uses radio frequencies to destroy and removea small amount of prostate tissue. ? Interstitial laser coagulation (ILC). This procedure uses a laser to destroy and remove a small amount of prostate tissue. ? Transurethral electrovaporization (TUVP). This procedure uses electrodes to destroy and remove a small amount of prostate tissue. ? Prostatic urethral lift. This procedure inserts an implant to push the lobes of the prostate awayfrom the urethra. Follow these instructions at home: ? Take wold-htp-kpocouq and prescription medicines only as told by [...] from the medicine (more content not included)... [facility] HospitalUrology Office/Clinic Noteon 26-00-9597Nepxgyo Office/Clinic NoteChief Complaint F/u to TURP to review path [...] but being out and about with a lotof movement he notices some Post void dripping: [...] in his urine, he should decrease his activityand increase his water intake. Follow-up With When Contact Information DEANNA WADDELL, RAMON Berumen In 3 months [facility] [address] [place] [address]- Additional Instructions: Patient Education Benign Prostatic Hyperplasia [...] of basal cell carcinoma (more content not included)...[facility] HospitalComment on above:Result Comment: Electronically Signed By: Elia HUERTA MD\.br\Date and Time Signed: 05/06/23 11:55 EST\.br\Electronically Co-Signed By: Italia Redd\.br\Date and Time Co- Signed: 05/06/23 11:54 DFSYiU8c (Bld) [Mass fraction]on 92-16-6869Y7U HEMOGLOBIN 6.7NoCanburg Other a1c HEMOGLOBINGhostery, Inc[employer] Other CNOVSPon 02-90-3414FSCBNCTqhpf (SP) Office (HEMASA) RACHEL ACKERMAN ([id number]) 1950 Date Time Provider Department 02/20/23 10:45 AM KESHA CLIFTON During your visit today, we recorded the following information about you: Temperature Pulse Respiration Blood pressure 97.7 degrees 65/minute 16/minute 130/74 Weight Height 114.9 kg 1.778 m Kesha Clifton MD 02/20/2023 10:57 AM Signed PATIENT NAME: Rachel Ackerman CLINIC NO.: [id number] ATTENDING PHYSICIAN: Kesha Clifton MD DATE OF [...] Final Abs Neut Date (more content not included)...NormalKettering Health HamiltonCNPNon 47-34-2577AIAENdaowrxxr (HEMTSA) RACHEL ACKERMAN ([id number]) 1950 M Date Time Provider Department 01/30/23 [...] call with any questions or concerns Crystal Cooley, RN Allergies As of Date: 01/30/2023 Noted Allergy Reaction CARDURA (DOXAZOSIN) 01/22/2023 10 - Anaphylaxis Date Reviewed: 01/23/2023 Reviewed by: Miguel July - Fully Assessed Reason for Visit: Patient Question [9767] Prescriptions as of 01/30/2023 - acetaminophen (TYLENOL) [...] (None) Encounter Status:Closed by CRYSTAL COOLEY on 01/30/23[facility] HospitalIngrid 19-90-9315FXKJQjgrekskq (HEMTSA) RACHEL ACKERMAN ([id number]) 1950 M Date Time Provider Department 01/28/23 CRYSTAL COOLEY During your visit today, we recorded the following information about you: Crystal Cooley RN 01/28/2023 12:51 PM Signed Call received from Mary Huerta office to notify that patient is scheduled for TURP 02/07 and would like to know if patient is cleared from your standpoint for procedure. Advise Crystal Cooley RN Triage please fax to [phone] or call [phone] c/o Kesha Hackett MD 01/28/2023 2:23 PM [...] (None) Encounter Status:Closed by CRYSTAL COOLEY on 01/28/23NormalCOhioHealth O[facility] W Auto Differential panel (Bld)on 51-46-1597Upgdumwxe (Bld) [#/Vol] 0.08 10*3/uLNormal<0.11CLicking Memorial Hospital on above:Order Comment: Specimen Type: BLOOD SPECIMENOrdering Facility: [facility] Address:[address] [place], [place] [address]Performed By: #### [id number] ####[facility] LABCLIA [id number] [place], [place] [address]Mdvhzfndy/100 WBC (Bld)1.1 %NormalOhioHealth Doctors Hospital on above:Order Comment: Specimen Type: BLOOD SPECIMENOrdering Facility: [facility] Address:[address] [place], [place] [address]Performed By: #### 25341-3 ####[facility] LABCLIA [id number] [place], [place] [address]Kikgsneurpor cell count method Nom (Bld)AutoNormalCLicking Memorial Hospital on above:Order Comment: Specimen Type: BLOOD SPECIMENOrdering Facility: [facility] Address:[address] [place], [place] [address]Performed By: #### 52700-7 ####[facility] LABCLIA [id number] [place], [place] [address]Yviitfpyxws (Bld) [#/Vol]0.12 10*3/uLNormal<0.46[facility] on above:Order Comment: Specimen Type: BLOOD SPECIMENOrdering Facility: [facility] Address:[address] [place], [place] [address]Performed By: #### 99835-1 ####[facility] LABCLIA [id number] [place], [place] [address]Cpkfarfjmso/100 WBC (Bld)1.6 %NormalOhioHealth Doctors Hospital on above:Order Comment: Specimen Type: BLOOD SPECIMENOrdering Facility: [facility] Address:[address] [place], [place] [address]Performed By: #### 25667-7 ####[facility] LABIA [id number] [place], [place] [address]Srsxravbioo distribution width (RBC) [Ratio]13.5 %Normal 11.5-15.0[facility] on above:Order Comment: Specimen Type: BLOOD SPECIMENOrdering Facility: [facility] Address:[address] [place], [place] [address]Performed By: #### 05711-7 ####[facility] LABIA [id number] [place] [address] Hematocrit (Bld) [Volume fraction]44.7 %Vchaws28.0-51.0[facility] on above:Order Comment: Specimen Type: BLOOD SPECIMENOrdering Facility: [facility] Address:[address] [place], [place] [address]Performed By: #### 75108-6 ####[facility] LABIA [id number] [place], [place] [address]Voizjegpuy (Bld) [Mass/Vol]15.4 g/kDPgdnzw22.0-17.0[facility] on above:Order Comment: Specimen Type: BLOOD SPECIMENOrdering Facility: [facility] Address:[address] [place], [place] [address]Performed By: #### 91123-9 ####[facility] LABIA [id number] [place], [place] [address]Wvxlqbfx granulocytes (Bld) [#/Vol]0.04 10*3/uLNormal <0.10[facility] on above:Order Comment: Specimen Type: BLOOD SPECIMENOrdering Facility: [facility] Address:[address] [place], [place] [address]Performed By: #### 51341-5 ####[facility] LABCLIA [id number] [place], [place] [address]Xbpeockr granulocytes/100 WBC (Bld)0.5 %NormalOhioHealth Doctors Hospital on above: Order Comment: Specimen Type: BLOOD SPECIMENOrdering Facility: [facility] Address:[address] [place] [address]Performed By: #### 78508- 8 ####[facility] LABCLIA [id number] [place], [place] [address]Etkddivshkv (Bld) [#/Vol]2.40 10*3/uLNormal1.00-4.00 [facility] on above:Order Comment: Specimen Type: BLOOD SPECIMENOrdering Facility: [facility] Address:[address] [place], [place] [address]Performed By: #### 41398-6 ####[facility] LABIA [id number] [place], [place] [address]Shjzesuzqxt/100 WBC (Bld)31.6 %NormalOhioHealth Doctors Hospital on above:Order Comment: Specimen Type: BLOOD SPECIMENOrdering Facility: [facility] Address:[address] [place], [place] [address]Performed By: #### 20322-0 ####[facility] LABCLIA [id number] [place], [place] [address]IEI (RBC) [Entitic mass]28.7 mfDyvwsw59.0-34.0[facility] on above:Order Comment: Specimen Type: BLOOD SPECIMENOrdering Facility: [facility] Address:[address] [place], [place] [address]Performed By: #### 59807-9 ####[facility] LABIA [id number] [place], [place] [address]UKNG (RBC) [Mass/Vol]34.5 g/rVGrqfcr16.5-36.0[facility] on above: Order Comment: Specimen Type: BLOOD SPECIMENOrdering Facility: [facility] Address:[address] [place], [place] [address]Performed By: #### 14571- 8 ####[facility] LABCLIA [id number] [place], [place] [address]JXG (RBC) [Entitic vol]83.2 mAVnmrft30.0-100.0[facility] on above:Order Comment: Specimen Type: BLOOD SPECIMENOrdering Facility: [facility] Address:[address] [place], [place] [address]Performed By: #### 10782-3 ####[facility] LABCLIA [id number] [place], [place] [address]Shhxijqlg (Bld) [#/Vol]0.60 10*3/uLNormal<0.87[facility] on above:Order Comment: Specimen Type: BLOOD SPECIMENOrdering Facility: [facility] Address:[address] [place], [place] [address]Performed By: #### 80327- 8 ####[facility] LABCLIA [id number] [place], [place] [address]Rvditjhqf/100 WBC (Bld)7.9 %NormalOhioHealth Doctors Hospital on above:Order Comment: Specimen Type: BLOOD SPECIMENOrdering Facility: [facility] Address:[address] [place], [place] [address]Performed By: #### 37061-8 ####[facility] LABCLIA [id number] [place], [place] [address]Wcvwroltitb (Bld) [#/Vol]4.36 10*3/uLNormal1.45-7.50[facility] on above:Order Comment: Specimen Type: BLOOD SPECIMENOrdering Facility: [facility] Address:[address] [place], [place] [address]Performed By: #### 15407-4 ####[facility] LABCLIA [id number] [place], [place] [address]Yihpkwfsbap/100 WBC (Bld)57.3 %NormalOhioHealth Doctors Hospital on above:Order Comment: Specimen Type: BLOOD SPECIMENOrdering Facility: [facility] Address:[address] [place], [place] [address]Performed By: #### 44148-8 ####[facility] LABCLIA [id number] [place], [place] [address]Kztmodltg RBC (Bld) [#/Vol] 10*3/uLNormal<0.01[facility] on above:Order Comment: Specimen Type: BLOOD SPECIMENOrdering Facility: [facility] Address:[address] [place], [place] [address]Performed By: #### 61881-2 ####[facility] LABIA [id number] [place], [place] [address]Rlesskxjn RBC/100 WBC (Bld) [Ratio]0.0 /100 WBCNormal [facility] on above:Order Comment: Specimen Type: BLOOD SPECIMENOrdering Facility: [facility] Address:[address] [place], [place] [address]Performed By: #### 45271-0 ####[facility] LABIA [id number] [place], [place] [address]Kicxtbsm mean volume (Bld) [Entitic vol]9.2 fLNormal9.0-12.7CLicking [facility] on above:Order Comment: Specimen Type: BLOOD SPECIMENOrdering Facility: [facility] Address:[address] [place] [address] Performed By: #### 91669-2 ####[facility] LABIA [id number] [place], [place] [address]Cqzenzrne (Bld) [#/Vol]128 10*3/mWMdg009-218FqpbudiyqOhioHealth Doctors Hospital on above:Order Comment: Specimen Type: BLOOD SPECIMENOrdering Facility: [facility] Address:[address] [place], [place] [address]Yeniycekt By: #### 77752-0 ####[facility] LABIA [id number] [place], [place] [address]TIX (Bld) [#/Vol]5.37 10*6/uLNormal4.20-6.00[facility] on above:Order Comment: Specimen Type: BLOOD SPECIMENOrdering Facility: [facility] Address:[address] [place], [place] [address]Tbxqxxkrx By: #### 58333-1 ####[facility] LABIA [id number] [place], [place] [address]LIR (Bld) [#/Vol]7.60 10*3/uLNormal3.70-11.00[facility] on above: Order Comment: Specimen Type: BLOOD SPECIMENOrdering Facility: [facility] Address:[address] [place], [place] [address]Dlijzynnj By: #### 30502- 8 ####[facility] LABIA [id number] [place], [place] [address]LELJDWqx 85-94-8831PDSPIWZkkgj (SP) Office ([place]) RACHEL ACKERMAN ([id number]) 1950 M Date Time Provider Department 01/23/23 12:00 PM KESHA [place] During your visit today, we recorded the following information about you: Temperature Pulse Respiration Blood pressure 97.6 degrees 65/minute 18/minute 137/76 Weight Height 114.3 kg 1.778 m Kesha Clifton MD 01/23/2023 12:34 PM Signed PATIENT NAME: Rachel Ackerman CLINIC NO.: [id number] ATTENDING PHYSICIAN: Kesha Clifton MD DATE OF [...] Extraocular movements are intact. (more content not included)...NormalAvita Health System Ontario Hospitalprehensive metabolic 2000 panelon 18-66-7775Jmjlcvz [Mass/Vol]4.7 g/dLNormal3.9-4.9 [facility] on above:Order Comment: Specimen Type: BLOOD SPECIMENOrdering Facility: [facility] Address:[address] [place], [place] [address]Performed By: #### 20878-7, 2531-0 ####[facility] LABCLIA [id number] [place] [id number] [place] AMERICAALP [Catalytic activity/Vol]97 U/XCzqnfz98-963NcljzcidzOhioHealth Doctors Hospital on above:Order Comment: Specimen Type: BLOOD SPECIMENOrdering Facility: [facility] Address:[address] [place], [place] [address]Performed By: #### 74952-7, 2531-0 ####[facility] LABCLIA [id number] [place] [address] [place] ALT [Catalytic activity/Vol]38 U/LAeahsy47-91OrrbxslhjOhioHealth Doctors Hospital on above:Order Comment: Specimen Type: BLOOD SPECIMENOrdering Facility: [facility] Address:[address] [place] [address] Performed By: #### 02568-5, 2531-0 ####[facility] LABCLIA [id number] [place] [address] [place] Anion gap [Moles/Vol]13 mmol/LNormal9-18[facility] on above:Order Comment: Specimen Type: BLOOD SPECIMENOrdering Facility: [facility] Address:[address] [place], [place] [address]Performed By: #### 43572-7, 2531-0 ####[facility] LABCLIA [id number] [place] [id number] [place] AMERICAAST [Catalytic activity/Vol]29 U/YIzmmyt33-85VlerdxqzqOhioHealth [facility] Hospital on above:Order Comment: Specimen Type: BLOOD SPECIMENOrdering Facility: [facility] Address:[address] [place], [place] [address]Performed By: #### 51193- 8, 2532-0 ####[facility] LABCLIA [id number] [facility] [place] [address] [place] AMERICABilirubin [Mass/Vol]1.3 mg/dLNormal0.2-1.3CLicking [facility] Hospital on above:Order Comment: Specimen Type: BLOOD SPECIMENOrdering Facility: [facility] Address:[address] [place], [place] [address]Performed By: #### 16052-9, 2531-0 ####[facility] LABCLIA [id number] [place] [address] [place] AMERICACalcium [Mass/Vol]9.0 mg/dLNormal 8.5-10.2CWright-Patterson Medical CenterComment on above:Order Comment: Specimen Type: BLOOD SPECIMENOrdering Facility: [facility] Address:[address] [place], [place] [address]Performed By: #### 91989-3, 2531-0 ####[facility] LABIA [id number] [place] [address] [place] AMERICAChloride [Moles/Vol]103 mmol/LQghtdd14-631 [facility]Comh[facility]zel [facility] on above:Order Comment: Specimen Type: BLOOD SPECIMENOrdering Facility: [facility] Address:[address] [place], [place] [address]Performed By: #### 20235-8, 2531-0 ####[facility] LABIA [id number] [place] [address] [place] AMERICACO2 [Moles/Vol]23 mmol/CVtwarm96-22UsjhzaqyiKettering Health Hamilton Comment on above:Order Comment: Specimen Type: BLOOD SPECIMENOrdering Facility: [facility] Address:[address] [place] [address] Performed By: #### 51658-7, 2531-0 ####[facility] LABCLIA [id number] [place] [address] [place] Creatinine [Mass/Vol]0.98 mg/dLNormal0.73-1.22[facility] on above:Order Comment: Specimen Type: BLOOD SPECIMENOrdering Facility: [facility] Address:[address] [place] [address] Performed By: #### 93240-0, 2531-0 ####[facility] LABCLIA [id number] [address] [place] Creatinine and Glomerular filtration rate.predicted panel (S/P/Bld)82 mL/min/1.73m???Normal>=60[facility] on above:Order Comment: Specimen Type: BLOOD SPECIMENOrdering Facility: [facility] Address:[address] [place], [place] [address]Result Comment: Estimated Glomerular Filtration Rate (eGFR) is calculated using the 2020 CKD-EPI cre atinine equation. This equation utilizes serum creatinine, sex, and age as parameters. The creatinine assay has traceable calibration to isotope dilution- mass spectrometry. Refer to KDIGO guidelines for clinical interpretation. In patients with unstable renal function, e.g. those with acute kidney injury, the eGFR may not accurately reflect actual GFR.Performed By: #### 89872-2, 0 ####[facility] LABIA [id number] [place] [address] [place] AMERICAGlucose [Mass/Vol]89 mg/dLNormal 74-99[facility] on above:Order Comment: Specimen Type: BLOOD SPECIMENOrdering Facility: [facility] Address:[address] [place], [place] [address]Result Comment: The [place] Diabetes Association (ADA) provides guidance for cutoff [...] Standards of Medical Care in Diabetes 2016, [place] Diabetes [employer]. Diabetes Care. 2016.39(Suppl 1).Performed By: #### 84990-2, ####[facility] LABCLIA [id number] [place] [address] [place] AMERICAPotassium [Moles/Vol]4.2 mmol/L Normal3.7-5.1CWright-Patterson Medical CenterComment on above:Order Comment: Specimen Type: BLOOD SPECIMENOrdering Facility: [facility] Address:[address] [place], [place] [address]Performed By: #### 92847-0, ####[facility] LABIA [id number] [place] [address] [place] AMERICAProtein [Mass/Vol]6.9 g/dLNormal6.3-8.0[facility] HamiltonComment on above:Order Comment: Specimen Type: BLOOD SPECIMENOrdering Facility: [facility] Address:[address] [place], [place] [address]Performed By: #### 95175-8, ####[facility] LABIA [id number] [address] STATES OF AMERICASodium [Moles/Vol]139 mmol/EGtvbbr410-136NobcdxptlKettering Health HamiltonComhutzel women's hospital on above:Order Comment: Specimen Type: BLOOD SPECIMENOrdering Facility: [facility] Address:[address] [place], [place] [address]Performed By: #### 78139-3, 0 ####[facility] LABIA [id number] [place] [id number] [place] AMERICAUrea nitrogen [Mass/Vol]15 mg/dLNormal9-24[facility] Comment on above:Order Comment: Specimen Type: BLOOD SPECIMENOrdering Facility: [facility] Address:[address] [place] [address] Performed By: #### 62013-6, 2531-0 ####[facility] LABCLIA [id number] [place] [address] [place] Ferritin SerPl-mCncon 28-57-7664Enyghtpu [Mass/Vol]306.0 ng/cONnhdue69.3-565.7 [facility] on above:Order Comment: Specimen Type: BLOOD SPECIMEN [facility] Address: [address] [place], [place] [address]Performed By: #### 2276-4, 03361-4 #### [facility] LAB CLIA [id number] [address] [place] [address] [place] AMERICAFolate SerPl-mCncon 21-25-0913Mrtska [Mass/Vol]11.3 ng/mLNormal>4.7ClevelPsychiatric hospitalComhutzel women's hospital on above:Order Comment: Specimen Type: BLOOD SPECIMENOrdering Facility: [facility] Address:[address] [place] [address] Performed By: #### 2885-2, 2132-9, 2284-8 ####[facility] LABCLIA [id number] [place] [address] [place] AMERICAHBV core Ab Ser Qlon 65-81-3794BEN core Ab Ql (S)NegativeNormalNegative [facility] on above:Order Comment: Specimen Type: BLOOD SPECIMENOrdering Facility: [facility] Address:[address] [place], [place] [address]Result Comment: No evidence of current or past infection with Hepatitis B virus. Should recent infection be suspected, repeat testing may be considered 3-4 weeks after this draw.Performed By: #### 78863-7, 26378-8, 5195-3 ####[facility] LABCLIA [id number] [address] [place] AMERICAHBV surface Ab Ql (S)on 19-74-0870PSN surface Ab Qn (S)<8.00NormalClevelSelect Medical TriHealth Rehabilitation [facility] on above:Order Comment: Specimen Type: BLOOD SPECIMENOrdering Facility: [facility] Address:[address] [place], [place] [address]Result Comment: <8 mIU/mL: No serological evidence of immunity to Hepatitis B Virus. >/= 8 to <12 mIU/mL: No serological evidence of immunity to Hepatitis B Virus. >/= 12 mIU/mL: Consistent with serological evidence of immunity to Hepatitis B Virus.Performed By: #### 70848-5, 51679-8, 5195-3 ####[facility] [id number] [address] [place] AMERICAHBV surface Ab Ser Qlon 32-77-5631LOR surface Ab Ql (S)Negative NormalOhioHealth Doctors Hospital on above:Order Comment: Specimen Type: BLOOD SPECIMENOrdering Facility: [facility] Address:[address] [place], [place] [address]Result Comment: No serological evidence of immunity to Hepatitis B Virus.Performed By: #### 66065-5, 82947-8, 5195-3 ####[facility] [id number][place] [address] [place] AMERICAHBV surface Ag Ser Qlon 05-73-7870GEK surface Ag Ql (S)NegativeNormalNegativeOhioHealth Doctors Hospital on above:Order Comment: Specimen Type: BLOOD SPECIMENOrdering Facility: [facility] Address:[address] [place], [place] [address]Performed By: #### 82385- 2, 16383-4, 5195-3 ####[facility] [id number][place] [address] [place] AMERICAHCV Ab Ser Qlon 20-04-9573RGL Ab Ql (S)NegativeNormalNegativeOhioHealth [facility] Hospital on above:Order Comment: Specimen Type: BLOOD SPECIMENOrdering Facility: [facility] Address:[address] [place], [place] [address]Result Comment: The result suggests no evidence of active infection with Hepatitis C virus. Should recent infection be suspected, repeat testing may be considered 4- 6 weeks after this draw.Performed By: #### 39614-3 ####[facility] LABCLIA [id number] [place] [address] [place] AMERICAIMMUNOFIXATION SCREEN, SERUMon 77-78-2608ROZ RESULTNo M protein is identified.NormalNo M protein is identified.[facility] Comment on above:Order Comment: Specimen Type: BLOOD SPECIMENOrdering Facility: [facility] Address:[address] [place] [address] Performed By: #### IFESC ####[facility] LABCLIA [id number] [place] [address] [place] AMERICASTAFF REVIEW ([facility])Reviewed by Marisol RutherfordLicking Memorial Hospital on above:Order Comment: Specimen Type: BLOOD SPECIMENOrdering Facility: [facility] Address:[address] [place], [place] [address]Performed By: #### IFESC ####[facility] LABIA [id number] [place] [address] [place] AMERICAIMMUNOGLOBULINS GAMon 01-23-2023 IgA [Mass/Vol]217 mg/hXDrvdiw76-852FrdkjdkomKettering Health HamiltonComment on above: Order Comment: Specimen Type: BLOOD SPECIMENOrdering Facility: [facility] Address:[address] [place], [place] [address]Performed By: #### SERIMM ####[facility] LABCLIA [id number] [place] [address] [place] AMERICAIgG [Mass/Vol]816 mg/dLNormal 700-1600[facility] on above:Order Comment: Specimen Type: BLOOD SPECIMENOrdering Facility: [facility] Address:[address] [place], [place] [address]Performed By: #### SERIMM ####[facility] LABCLIA [id number] [place] [address] [place] AMERICAIgM [Mass/Vol]37 mg/iLKtn02-079YcggywotjOhioHealth Doctors Hospital on above:Order Comment: Specimen Type: BLOOD SPECIMENOrdering Facility: [facility] Address:[address] [place], [place] [address]Performed By: #### SERIMM ####[facility] LABCLIA [id number] [place] [address] [place] [employer] binding capacity panelon 77-99-2023Asdz [Mass/Vol]82 ug/dLNormal 41-186[facility] on above:Order Comment: Specimen Type: BLOOD SPECIMEN [facility] Address: [address] [place], [place] [address]Performed By: #### 2276-4, 52481-4 #### [facility] CLIA [id number] [address] [place] [address] [place] AMERICAIron binding capacity [Mass/Vol]374 ug/nPBfmwym867-724RdlwikeeiOhioHealth Doctors Hospital on above:Order Comment: Specimen Type: BLOOD SPECIMEN [facility] Address: [address] [place], [place] [address]Performed By: #### 2276-4, 32556-9 #### [facility] CLIA [id number] [address] [place] [address] [place] AMERICAIron/TIBC [Molar ratio]21.9 %Sqipho14.0-57.0[facility] on above:Order Comment: Specimen Type: BLOOD SPECIMEN [facility] Address: [address] [place], [place] [address]Performed By: #### 2276-4, 85691-2 #### [facility] CLIA [id number] [address] [place] [address] [place] AMERICAKAPPA/DIAZ,FREE,SERon 93-53-5383Pebwuynwsagciy light chains.kappa.free (S) [Mass/Vol]16.8 mg/LNormal 3.3-19.4CSamaritan Hospitalment on above:Order Comment: Specimen Type: BLOOD SPECIMEN [facility] Address: [address] [place], [place] [address]Result Comment: Rarely, increased serum free light chains levels may not be detected or accurately quantified due to prozone phenomenon or in high viscosity samples using this immunoturbidimetric assay. Correlation with other laboratory results and clinical findings is recommended. The [place] Free Light Chain was performed using the Binding Site Optilite immunoturbidimetric method. Result obtained with different assay methods or kits cannot be used interchangeably.Performed By: #### KLFRS #### [facility] CLIA [id number] [address] [place] [address] [place] AMERICAImmunoglobulin light chains.kappa/Immunoglobulin light chains.lambda (S) [Mass ratio]1.62Normal 0.26-1.65[facility] on above:Order Comment: Specimen Type: BLOOD SPECIMEN [facility] Address: [address] [place], [place] [address]Performed By: #### KLFRS #### [facility] CLIA [id number] [address] [place] [address] [place] AMERICAImmunoglobulin light chains.lambda.free [Mass/Vol]10.4 mg/LNormal5.7-26.3CW[facility] Comment on above:Order Comment: Specimen Type: BLOOD SPECIMEN [facility] Address: [address] [place], [place] [address]Result Comment: Rarely, increased serum free light chains levels may not be detected or accurately quantified due to prozone phenomenon or in high viscosity samples using this immunoturbidimetric assay. Correlation with other laboratory results and clinical findings is recommended. The Lambda Free Light Chain was performed using the Binding Site Optilite immunoturbidimetric method. Result obtained with different assay methods or kits cannot be used interchangeably.Performed By: #### KLFRS #### [facility] CLIA [id number] [address] [place] [address] [place] [facility]ARE SYSTEMLD SerPl-cCncon 01-23-2023 LDH [Catalytic activity/Vol]255 U/VHauq165-110XzzfhrvxqOhioHealth Doctors Hospital on above:Order Comment: Specimen Type: BLOOD SPECIMENOrdering Facility: [facility] Address:[address] [place] [address] Performed By: #### 89687-5, 2532-0 ####[facility] LABCLIA [id number] [place] [address] [place] PROTEIN ELECTROPHORESIS SERUM (P)on 13-29-1510Zsgdtli [Mass/Vol]4.57 g/dLNormal 3.43-5.41[facility] on above:Order Comment: Specimen Type: BLOOD SPECIMENOrdering Facility: [facility] Address:[address] [place], [place] [address]Performed By: #### [id number] ####[facility] LABCLIA [id number] [place] [address] [place] AMERICAAlpha 1 globulin Elph [Mass/Vol]0.27 g/dLNormal0.18-0.43 [facility] on above:Order Comment: Specimen Type: BLOOD SPECIMENOrdering Facility: [facility] Address:[address] [place], [place] [address]Performed By: #### [id number] ####[facility] LABCLIA [id number] [place] [address] [place] AMERICAAlpha 2 globulin Elph [Mass/Vol]0.66 g/dLNormal0.42-0.98[facility] on above:Order Comment: Specimen Type: BLOOD SPECIMENOrdering Facility: [facility] Address:[address] [place], [place] [address]Performed By: #### [id number] ####[facility] LABCLIA [id number] [place] [address] [place] Beta globulin Elph [Mass/Vol]0.79 g/dLNormal0.61-1.17[facility] Comment on above:Order Comment: Specimen Type: BLOOD SPECIMENOrdering Facility: [facility] Address:[address] [place] [address] Performed By: #### [id number] ####[facility] LABCLIA [id number] [place] [address] [place] Gamma globulin Elph [Mass/Vol]0.61 g/dLNormal0.53-1.51[facility] Comment on above:Order Comment: Specimen Type: BLOOD SPECIMENOrdering Facility: [facility] Address:[address] [place] [address] Performed By: #### [id number] ####[facility] LABCLIA [id number] [place] [address] [place] M-PROTEIN LOCATIONNormalCWright-Patterson Medical CenterComment on above:Order Comment: Specimen Type: BLOOD SPECIMENOrdering Facility: [facility] Address:[address] [place], [place] [address]Result Comment: Not Applicable.Performed By: #### [id number] ####[facility] LABIA [id number] [place] [address] [place] Protein Fractions [Interp]No definitive M protein is identified on protein electrophoresis.NormalNo definitive M protein is identified on protein electrophoresis.[facility] HamiltonComment on above:Order Comment: Specimen Type: BLOOD SPECIMENOrdering Facility: [facility] Address:[address] [place], [place] [address]Performed By: #### [id number] ####[facility] LABIA [id number] [place] [address] [place] AMERICAProtein.monoclonal Elph [Mass/Vol]0.00 g/dLNormal<=0.00[facility] on above:Order Comment: Specimen Type: BLOOD SPECIMENOrdering Facility: [facility] Address:[address] [place], [place] [address]Performed By: #### [id number] ####[facility] LABCLIA [id number] [place] [address] [place] AMERICASPE STAFF REVIEW Reviewed by Guerline Swift MDNormalCLicking Memorial Hospital on above: Order Comment: Specimen Type: BLOOD SPECIMENOrdering Facility: [facility] Address:[address] [place], [place] [address]Performed By: #### [id number] ####[facility] LABCLIA [id number] [place] [address] [place] AMERICAProt SerPl-mCncon 91-95-1430Aqxsxfe [Mass/Vol]6.7 g/dLNormal6.3-8.0[facility] Comment on above:Order Comment: Specimen Type: BLOOD SPECIMEN [facility] Address: [address] [place], [place] [address]Performed By: #### 2885-2, 2131-12, 2283-11 #### [facility] CLIA [id number] [address] [place] [address] [place] AMERICAVit B12 SerPl-mCncon 90-57-5798Ephoucaci (Vitamin B12) [Mass/Vol]516 pg/fBNihwvv461-4857RtuvmpyrqLicking Memorial Hospital on above:Order Comment: Specimen Type: BLOOD SPECIMEN Ordering Facility: [facility] Address: [address] [place], [place] [address]Performed By: #### 2885-2, 2131-12, 2283-11 #### [facility] CLIA [id number] [address] [id number] [id number] HEMOGLOBINon 09-27-2022 HbA1c (Bld) [Mass fraction]6.0 %[employer] Other HbA1c (Bld) [Mass fraction]on 62-43-5788G4D HEMOGLOBIN [employer] Other a1c HEMOGLOBINon 32-44-0248UlW7e (Bld) [Mass fraction] 5.6 %[facility] [employer] Other HbA1c (Bld) [Mass fraction]on 45-27-7087V5K HEMOGLOBIN [facility] [employer] Other HbA1c (Bld) [Mass fraction]on 97-87-8947O9E HEMOGLOBIN 6.1NNYU [facility] [employer] Other a1c HEMOGLOBINNortTemple University Hospital [employer] Other a1c HEMOGLOBINon 07-40-6856RsB1y (Bld) [Mass fraction] 5.9 %[facility] [employer] Other HbA1c (Bld) [Mass fraction]on 70-90-1722Q2A HEMOGLOBIN [facility] [employer] Other cbc AUTO DIFFon 51-46-0578LLGW #0.1 103/ulNormal 0.0-0.1The [facility] HospitalComment on above:Performed By: #### CBC #### [facility] [address] [address] Martha KarenBasophils/100 WBC (Bld)1.2 %Normal0.2-2.0[facility] Comment on above:Performed By: #### CBC #### [facility] [address] [address] Martha KarenEO #0.2 103/ulNormal0.0-0.7The [facility] HospitalComment on above: Performed By: #### CBC #### [facility] [address] [address] Martha KarenEosinophils/100 WBC (Bld)2.4 %Normal0.9-7.0[facility] Comment on above:Performed By: #### CBC #### [facility] [address] [address] Martha KarenErythrocyte distribution width (RBC) [Ratio]13.1 %Lijkjz96.0-15.0The [facility] HospitalComment on above:Performed By: #### CBC #### [facility] [address] [address] Martha KarenHematocrit (Bld) [Volume fraction]45.5 %Hhkhqg52.0-54.0The [facility] HospitalComment on above:Performed By: #### CBC #### [facility] [address] [place] [address] Martha KarenHemoglobin (Bld) [Mass/Vol]15.6 g/oIFwvdel50.0-18.0The [facility] HospitalComment on above:Performed By: #### CBC #### [facility] [address] [place] [address] Martha KarenIG #0.08 10e3/ulCritically high0.00-0.03The [facility] HospitalComment on above:Performed By: #### CBC #### [facility] [address] [place] [address] Martha KarenIG %1.1 %Critically high0.0-0.5The [facility] HospitalComment on above:Performed By: #### CBC #### [facility] [address] [place] [address] Martha KarenLYMPH #2.7 103/ulNormal1.2-3.8The [facility] HospitalComment on above: Performed By: #### CBC #### [facility] [address] [place] [address] Martha KarenLymphocytes/100 WBC (Bld)35.8 %Xffnry48.5-60.0[facility] Comment on above:Performed By: #### CBC #### [facility] [address] [place] [address] Martha KarenMANUAL DIFF REQNONormalThe Samaritan HospitalComment on above: Performed By: #### CBC #### [facility] [address] [place] [address] Martha KarenMCH (RBC) [Entitic mass]29.4 dfGgecfn26.9-34.0[facility] Comment on above:Performed By: #### CBC #### [facility] [address] [address] Martha YanceyMCHC (RBC) [Mass/Vol]34.3 g/aCEprxiv10.9-35.2[facility] Comment on above:Performed By: #### CBC #### [facility] [address] [place] [address] Martha MajorenMCV (RBC) [Entitic vol]85.7 pBLteokx46.0-94.0[facility] Comment on above:Performed By: #### CBC #### [facility] [address] [place] [address] Martha YanceyMONO #0.6 103/ulNormal0.3-0.8The [facility] HospitalComment on above: Performed By: #### CBC #### [facility] [address] [place] [address] Martha KarenMonocytes/100 WBC (Bld)7.4 %Normal1.7-12.0[facility] Comment on above:Performed By: #### CBC #### [facility] [address] [place] [address] Martha MajorenNEUT #3.9 103/ulNormal1.4-6.5The [facility] HospitalComment on above: Performed By: #### CBC #### [facility] [address] [place] [address] Martha KarenNeutrophils/100 WBC (Bld)52.1 %Vicatf82.0-75.0[facility] Comment on above:Performed By: #### CBC #### [facility] [address] [place], [place] [id number] Martha KarenPlatelet mean volume (Bld) [Entitic vol]9.1 fLCritically low9.5-13.5 The [facility] HospitalComment on above:Performed By: #### CBC #### [facility] [address] [place] [address] Martha BddioHUQ988 103/ulCritically nus002-968Ilg [facility] HospitalComment on above:Performed By: #### CBC #### [facility] [address] [address] Martha KarenRBC5.31 106/ulNormal4.70-6.10The [facility] HospitalComment on above: Performed By: #### CBC #### [facility] [address] [address] Martha MajorenWBC7.5 103/ulNormal4.0-11.0The [facility] HospitalComment on above: Performed By: #### CBC #### [facility] [address] [address] Martha KarenLIPID PROFILEon 25-47-4054PLNM-HDL RATIO NORMSEE St. [facility] HospitalComment on above:Result Comment: 3.3 - 4.4 LOW RISK 4.4 - 7.1 AVERAGE RISK 7.1 - 11.0 MODERATE RISK >11.0 HIGH RISKPerformed By: #### TSH, CMP, LIPID #### [facility] [address] [place] [address] Martha KarenCholesterol [Mass/Vol]171 mg/dLNormal<=200[facility] Comment on above:Performed By: #### TSH, CMP, LIPID #### [facility] [address] [place] [address] Martha KarenCholesterol in HDL [Mass/Vol]35 mg/dLKettering Memorial Hospital Comment on above:Performed By: #### TSH, CMP, LIPID #### [facility] [address] [place] [address] Martha KarenCholesterol in LDL [Mass/Vol]81.8 mg/dLKettering Memorial Hospital Comment on above:Performed By: #### TSH, CMP, LIPID #### [facility] [address] [place] [address] Martha KarenCholesterol.total/Cholesterol in HDL [Mass ratio]4.9 {ratio}Normal [facility] HealthComment on above:Performed By: #### TSH, CMP, LIPID #### [facility] [address] [place] [address] Martha KarenHDL NORMAL> or = 60 mg/dl - LOW CARDIOVASCULAR RISK <40 mg/dl - HIGH CARDIOVASCULAR RISKKettering Memorial HospitalComhutzel women[facility] hospital on above:Performed By: #### TSH, CMP, LIPID #### [facility] [address] [place] [address] Martha KarenLDL [address]C NORMALSEE [address] [facility] HospitalComhutzel women[facility] on above: Result Comment: <100 mg/dl OPTIMAL 100 - 129 mg/dl NEAR OR ABOVE OPTIMAL 130 - 159 mg/dl BORDERLINE HIGH 160 - 189 mg/dl HIGH >190 mg/dl VERY HIGHPerformed By: #### TSH, CMP, LIPID #### [facility] [address] [place] [address] Martha KarenTriglyceride [Mass/Vol]271 mg/dLCritically high<=150[facility] on above:Performed By: #### TSH, CMP, LIPID #### [facility] [address] [place] [address] Martha KarenVLDL CALC54.2 mg/dLKettering Memorial HospitalComhutzel women's hospital on above: Performed By: #### TSH, CMP, LIPID #### [facility] [address] [place] [address] Martha KarenMICROALB CREAT RATIO RANDOMon 33-27-0852eZCG<1.3Normal<=30.0[facility] on above:Performed By: #### MCRR #### [facility] [address] [place] [address] Martha KarenMALB CR RATIO10.7 mg/gNormal0.0-29.9[facility] on above:Performed By: #### MCRR #### [facility] [address] [place] [address] Martha KarenMALB CR RATIO RANGESEE BELOWKettering Memorial HospitalComhutzel women's hospital on above:Result Comment: NO MICROALBUMINURIA 0-29 MG/G CLINICAL MICROALBUMINURIA 30-300 MG/G MACROALBUMINURIA >300 MG/GPerformed By: #### MCRR #### [facility] [address] [place] [address] Martha KarenURINE UQHCY940.61 mg/cKRjcqtm15.00-300.00[facility] Comment on above:Performed By: #### MCRR #### [facility] [address] [address] Martha KarenPROF 14(COMP METB)on 38-40-3379Qyqqztk [Mass/Vol]4.2 g/dLNormal 3.5-5.0Mer[facility] HealthComment on above:Performed By: #### TSH, CMP, LIPID #### [facility] [address] [address] Martha KarenAlbumin/Globulin [Mass ratio]1.2 {ratio}NormalMercy Health Comment on above:Performed By: #### TSH, CMP, LIPID #### [facility] [address] [address] Martha KarenALP [Catalytic activity/Vol]87 U/MKlniyj41-775GzwMercy Health Comment on above:Performed By: #### TSH, CMP, LIPID #### [facility] [address] [address] Martha KarenALT [Catalytic activity/Vol]51 U/GAtbndi08-77IgiMercy Health Comment on above:Performed By: #### TSH, CMP, LIPID #### [facility] [address] [address] Martha KarenAnion gap [Moles/Vol]15.9 mmol/LNormalMercy HealthComment on above:Performed By: #### TSH, CMP, LIPID #### [facility] [address] [address] Martha KarenAST [Catalytic activity/Vol]31 U/NQbykmf69-30LmwMercy Health Comment on above:Performed By: #### TSH, CMP, LIPID #### [facility] [address] [place], [place] [id number] Martha KarenBilirubin [Mass/Vol]1.3 mg/dLNormal0.2-1.3TMcKitrick Hospital Comment on above:Performed By: #### TSH, CMP, LIPID #### [facility] [address] [place] [address] Martha KarenCalcium [Mass/Vol]8.5 mg/dLNormal8.4-10.2[facility] Comment on above:Performed By: #### TSH, CMP, LIPID #### [facility] [address] [address] Martha KarenChloride [Moles/Vol]104 mmol/OKxbpaf22-739CvnMercy Health Comment on above:Performed By: #### TSH, CMP, LIPID #### [facility] [address] [address] Martha KarenCO2 [Moles/Vol]25.2 mmol/AXewnjz30.0-30.0[facility] Comment on above:Performed By: #### TSH, CMP, LIPID #### [facility] [address] [place] [address] Martha KarenCreatinine [Mass/Vol]1.02 mg/dLNormal0.66-1.25ThParkwood [facility] Comment on above:Performed By: #### TSH, CMP, LIPID #### [facility] [address] [place] [address] Martha KarenEGFR-AF SAUDI ARABIAN>60Normal>=60The [facility] HospitalComment on above: Performed By: #### TSH, CMP, LIPID #### [facility] [address] [place] [address] Martha KarenEGFR-NON AF SAUDI ARABIAN>60Normal>=60The [facility] HospitalComment on above:Performed By: #### TSH, CMP, LIPID #### [facility] [address] [place] [address] Martha KarenGlobulin (S) [Mass/Vol]3.6 g/dLNormalThParkwood HospitalComment on above:Performed By: #### TSH, CMP, LIPID #### [facility] [address] [place] [address] Martha KarenGlucose [Mass/Vol]107 mg/dLCritically qsbk27-958Dhx [facility] HospitalComment on above:Performed By: #### TSH, CMP, LIPID #### [facility] [address] [place] [address] Martha KarenPotassium [Moles/Vol]4.1 mmol/LNormal3.4-5.0[facility] Comment on above:Performed By: #### TSH, CMP, LIPID #### [facility] [address] [place] [address] Martha KarenProtein [Mass/Vol]7.8 g/dLNormal6.1-8.2The [facility] HospitalComment on above:Performed By: #### TSH, CMP, LIPID #### [facility] [address] [address] Martha KarenSodium [Moles/Vol]141 mmol/YGxgndu392-623Clb [facility] Comment on above:Performed By: #### TSH, CMP, LIPID #### [facility] [address] [place] [address] Martha KarenUrea nitrogen [Mass/Vol]17.0 mg/dLNormal9.0-20.0The [facility] HospitalComment on above:Performed By: #### TSH, CMP, LIPID #### [facility] [address] [place] [address] Martha KarenUrea nitrogen/Creatinine [Mass ratio]16.7 mg/mgNoMadison HealthComment on above:Performed By: #### TSH, CMP, LIPID #### [facility] [address] [place] [address] Martha KarenTSHon 09-52-4190EKB7.860 uIU/mLNormal0.470-4.680The [facility] HospitalComment on above:Performed By: #### TSH, CMP, LIPID #### [facility] [address] [place] [address] Martha KarenTSH RANGESEE BELOWKettering Memorial HospitalComment on above:Result Comment: <0.34 UIU/ml HYPERTHYROID 0.34-5.60 UIU/ml EUTHYROID >5.60 UIU/ml HYPOTHYROIDPerformed By: #### TSH, CMP, LIPID #### [facility] [address] [place] [address] Martha Naye Vital Signs Date TimeVital SignValuePerforming NxbhegiibAknflaha89-72-2463 09:52-0400Body gwixzs676.8 cmMelissa DeWilde DO Work Phone: [phone] [place], [place] [address]707-23-2025 09:52-0400 Body mass index (BMI) [Ratio]34.1 kg/b0Tmqjica DeWilde DO Work Phone: 1(699)[address] [place], [place] [address]-23-2025 09:52-0400 Body .95 kgMelissa DeWilde DO Work Phone: 1(276)[address] [place], [place] [address]-23-2025 09:52-0400 Diastolic blood ihzlkdtw03 mm[Hg]Claire DeWilde DO Work Phone: 1([phone] [place], [place] [address]-23-2025 09:52-0400 Heart rate75 /minMelissa DeWilde DO Work Phone: [phone] [place], [place] [address]-23-2025 09:52-0400 SaO2% (BldA) [Mass fraction]97 %Claire DeWilde DO Work Phone: 1(882)[address] [place], [place] [address]-23-2025 09:52-0400 Systolic blood ziipjjeu919 mm[Hg]Claire DeWilde DO Work Phone: 1(530)[address] [place], [place] [address]-16-2025 11:54-0400 Body .8 cmMelissa DeWilde DO Work Phone: 1(441)[address] [place], [place] [address]-16-2025 11:54-0400 Body mass index (BMI) [Ratio]34.2 kg/c8Kireyvn DeWilde DO Work Phone: 1(194)[address] [place], [place] [address]-16-2025 11:54-0400 Body .4 kgMelissa DeWilde DO Work Phone: 1(893)[address] [place], [place] [address]-16-2025 11:54-0400 Diastolic blood pdbzrzit73 mm[Hg]Claire DeWilde DO Work Phone: 1(195)[address] [place], [place] [address]-16-2025 11:54-0400 Heart rate60 /minMelissa DeWilde DO Work Phone: [phone] [place], [place] [address]-16-2025 11:54-0400 SaO2% (BldA) [Mass fraction]98 %Claire DeWilde DO Work Phone: 1([phone])[address] [place], [place] [address]-16-2025 11:54-0400 Systolic blood zqdubrmf771 mm[Hg]Claire DeWilde DO Work Phone: 1(990)[address] [place], [place] [address]-12-2025 11:58-0400 Body laazcq283.8 cmMelissa DeWilde DO Work Phone: 1([phone] [place], [place] [address]-12-2025 11:58-0400 Body mass index (BMI) [Ratio]34.3 kg/i3Lanhoqp DeWilde DO Work Phone: 1(521)[address] [place], [place] [address]-12-2025 11:58-0400 Body ellrpt303.55 kgMelissa DeWilde DO Work Phone: 1([phone] [place], [place] [address]-12-2025 11:58-0400 Diastolic blood wrbubqqz12 mm[Hg]Claire DeWilde DO Work Phone: 1(445)[address] [place], [place] [address]-12-2025 11:58-0400 Heart rate74 /minMelissa DeWilde DO Work Phone: 1(857)[address] [place], [place] [address]-12-2025 11:58-0400 Respiratory rate18 /minMelissa DeWilde DO Work Phone: 1(435)[address] [place], [place] [address]706-12-2025 11:58-0400 SaO2% (BldA) [Mass fraction]98 %Claire DeWilde DO Work Phone: 1(856)[address] [place], [place] [address]-12-2025 11:58-0400 Systolic blood qgemsgtt637 mm[Hg]Claire DeWilde DO Work Phone: 1(885)[address] [place], [place] [address]-04-2025 15:33-0400 Body .8 cmMelissa DeWilde DO Work Phone: 1(273)[address] [place], [place] [address]-04-2025 15:33-0400 Body mass index (BMI) [Ratio]34.1 kg/d9Nrbcshg DeWilde DO Work Phone: 1(873)[address] [place], [place] [address]-04-2025 15:33-0400 Body fweexbaellk53 [degF]Claire DeWilde DO Work Phone: 1(593)[address] [place], [place] [address]-04-2025 15:33-0400 Body .95 kgMelissa DeWilde DO Work Phone: 1(760)[address] [place], [place] [address]-04-2025 15:33-0400 Diastolic blood netedwch13 mm[Hg]Claire DeWilde DO Work Phone: 1(684)[address] [place], [place] [address]-04-2025 15:33-0400 Heart rate85 /minMelissa DeWilde DO Work Phone: 1(620)[address] [place], [place] [address]-04-2025 15:33-0400 Respiratory rate18 /minMelissa DeWilde DO Work Phone: 1(517)[address] [place], [place] [address]706-04-2025 15:33-0400 SaO2% (BldA) [Mass fraction]97 %Claire DeWilde DO Work Phone: 1(592)[address] [place], [place] [address]-04-2025 15:33-0400 Systolic blood mm[Hg]Claire DeWilde DO Work Phone: 1(399)[address] [place], [place] 9560[address]-14-2025 11:40-0400 Body hqkouk121.8 cmOur [facility]-14-20[facility] 11:40-0400Body mass index (BMI) [Ratio]36.4 kg/m4SxwlbazwvOur [facility] Of [facility]04-14-2025 11:40-0400Body kyzewj387.26 kgOur [facility] Of [facility]04-14-2025 11:40-0400Diastolic blood qisjhtuv50 mm[Hg][facility] 07-27-2024 11:40-0400Heart rate63 /minOur [facility] Of [facility] 07-27-2024 11:40-0400Respiratory rate20 /[facility] 07-27-2024 11:40-6448PoB7% (BldA) [Mass fraction]97 %[facility]04-14-2025 11:40-0400Systolic blood qgudhxdo959 mm[Hg][facility]01-06-2025 11:44-0500Blood Pressure LocationPatrick HUERTA [facility]01-06-2025 11:44-0500Body qtrgvnhoxpp76.6 [degF]Elia HUERTA [facility]01-06-2025 11:44-0500Diastolic blood uwvkyjxd28 mm[Hg]Elia HUERTA [facility]01-06-2025 11:44-0500Heart rate70 /minPatrick HUERTA [facility]01-06-2025 11:44-0500Respiratory rate16 /minElia HUERTA [facility]01-06-2025 11:44-0500Systolic blood xrtuijat744 mm[Hg]Elia HUERTA [facility]11-06-2024 08:30-0500Body ygsqul823.8 cmDO Claire Sanchez Work Phone: [facility]11-06-2024 08:30-0500 Body mass index (BMI) [Ratio]35.4 kg/m2DO Claire DeWilde Work Phone: 1(021)[address] [place], [place] [address]11-06-2024 08:30-0500 Body nobfeoheevm45.2 [degF]DO Claire DeWilde Work Phone: 1(413)[address] [place], [place] 9560711-06-2024 08:30-0500 Body cigedz637.03 kgDO Claire DeWilde Work Phone: 1(921)[address] [place], [place] 9560711-06-2024 08:30-0500 Diastolic blood hofaugig21 mm[Hg]DO Claire DeWilde Work Phone: 1(533)[address] [place], [place] [address]60711-06-2024 08:30-0500 Heart rate65 /minDO Claire DeWilde Work Phone: 1(204)[address] [place], [place] 9560711-06-2024 08:30-0500 Respiratory rate18 /minDO Claire DeWilde Work Phone: 1(412)[address] [place], [place] 9560711-06-2024 08:30-0500 SaO2% (BldA) [Mass fraction]97 %DO Claire DeWilde Work Phone: 1(785)[address] [place], [place] 9560711-06-2024 08:30-0500 Systolic blood cslmdihw039 mm[Hg]DO Claire DeWilde Work Phone: 1(580)[address] [place], [place] [address]60710-11-2024 11:24-0400 Body thmmic405.8 cmOur [facility]10-11-2024 11:24-0400Body mass index (BMI) [Ratio]35.2 kg/i9OrokqfwawOur Lady Of [facility]10-11-2024 11:24-0400Body yaoztv346.18 kgOur [facility] Of [facility]10-11-2024 11:24-0400Diastolic blood kyxphaly91 mm[Hg][facility] 01-24-2024 11:24-0400Heart rate80 /[facility] 01-24-2024 11:24-0400Respiratory rate18 /[facility] 01-24-2024 11:24-7461JnM8% (BldA) [Mass fraction]97 %[facility]10-11-2024 11:24-0400Systolic blood ehldgzvx156 mm[Hg][facility]07-01-2024 12:06-0400Blood Pressure LocationPatrick DEANNA [facility]07-01-2024 12:06-0400Body .6 [degF]Elia HUERTA [facility]07-01-2024 12:06-0400Diastolic blood sshpsnyd88 mm[Hg]Elia HUERTA [facility]07-01-2024 12:06-0400Heart rate68 /Yeni HUERTA [facility]07-01-2024 12:06-0400Respiratory rate16 /Yeni HUERTA [facility]07-01-2024 12:06-0400Systolic blood ellubenk191 mm[Hg]Elia HUERTA [facility]04-30-2024 09:01-0400Blood Pressure LocationAurora Orzesara [facility]04-30-2024 09:01-0400Body eyhfrecevyw68.88 [degF]Haydee Orzech [facility]04-30-2024 09:01-0400Diastolic blood tbtgamnq31 mm[Hg]Haydee Orzech [facility]04-30-2024 09:01-0400Heart rate73 /minAurora Orzech [facility]04-30-2024 09:01-0400Respiratory rate20 /minAurora Orzech [facility]04-30-2024 09:01-0400Systolic blood anrclgan565 mm[Hg]Haydee Orzech [facility]03-25-2024 10:03-0400Body qomwnd175.8 cmDNP Patricatarsha Cruz Work Phone: 1(445)[address] [place], [place] [address]703-25-2024 10:03-0400 Body mass index (BMI) [Ratio]35.3 kg/m2DNP Patrica Anthony Work Phone: 1(271)[address] [place], [place] [address]60703-25-2024 10:03-0400 Body leielt443.78 kgDNP Patrica Anthony Work Phone: 1(365)[address] [place], [place] 95[address]703-25-2024 10:03-0400 Diastolic blood kvqzuhdi43 mm[Hg]DNP Patrica Cruz Work Phone: 1(199)[address] [place], [place] 95[address]703-25-2024 10:03-0400 Heart rate65 /minDNP Patrica Cruz Work Phone: 1(451)[facility] [place], [place] [address]-25-2024 10:03-0400 SaO2% (BldA) [Mass fraction]97 %DNP Patrica Cruz Work Phone: 8(127)[address] [place], [place] 9560703-25-2024 10:03-0400 Systolic blood mtmmigpi885 mm[Hg]DNP Patrica Cruz Work Phone: 8(156)[address] [place], [place] [address]60701-22-2024 10:25-0500 Blood Pressure LocationPabebo HUERTA [facility]01-22-2024 10:25-0500Diastolic blood lntrpcyp71 mm[Hg]Elia HUERTA [facility]01-22-2024 10:25-0500Heart rate75 /minElia HUERTA [facility]01-22-2024 10:25-0500Respiratory rate16 /minPabebo HUERTA [facility]01-22-2024 10:25-0500Systolic blood mm[Hg]Elia HUERTA [facility]01-02-2024 07:15-0500Body .8 cmPatrica Curz Other [facility]01-02-2024 07:15-0500 Body mass index (BMI) [Ratio]35.28 kg/t9DkhjkrnkPatrica Cruz Other [employer] Other 01-02-2024 07:15-0500Body .54 kgPatrica Cruz Other [employer] Other 01-02-2024 07:15-0500Body ohdpun733.53 kgDNP Patrica Cruz Work Phone: [facility]01-02-2024 07:15-0500 Diastolic blood mm[Hg]Patrica Cruz Other [facility]01-02-2024 07:15-0500 Respiratory rate18 /minPatrica Luquele Other [employer] Other 01-02-2024 07:15-2052GpH0% (BldA) [Mass fraction]97 % Patrica Cruz Other [employer] Other 01-02-2024 07:15-0500Systolic blood okiiabfd608 mm[Hg] Patrica Cruz Other [facility]12-18-2023 10:00-0500 Body nupupa085.8 cmJeangela Cruz Other [employer] Other 12-18-2023 10:00-0500Body mass index (BMI) [Ratio] 35.15 kg/r2OzrsgexoPatrica Cruz Other [employer] Other 12-18-2023 10:00-0500Body .13 kgPatrica Cruz Other [employer] Other 12-18-2023 10:00-0500Diastolic blood ijpchwsl81 mm[Hg] Patrica Cruz Other [employer] Other 12-18-2023 10:00-0500Respiratory rate18 /minJeangela Cruz Other [employer] Other 12-18-2023 10:00-5208BrI5% (BldA) [Mass fraction]94 % Patrica Cruz Other [employer] Other 12-18-2023 10:00-0500Systolic blood ztmjuyza657 mm[Hg] Patrica Cruz Other [employer] Other 12-05-2023 09:15-0500Body ykexoz835.8 cmDavidangela Cruz Other [employer] Other 12-05-2023 09:15-0500Body mass index (BMI) [Ratio] 34.43 kg/q3Zvkhfvudangela Cruz Other [employer] Other 12-05-2023 09:15-0500Body qjwzcmaheve61.5 [degF] [facility] 12-05-2023 09:15-0500Body dttivb302.86 kgDavidangela Cruz Other [facility] Other 12-05-2023 09:15-0500Diastolic blood mm[Hg] Patrica Cruz [facility] 12-05-2023 09:15-0500Respiratory rate18 /minPatrica Cruz Other [facility] Other 12-05-2023 09:15-2813XbI6% (BldA) [Mass fraction]97 % Patrica Cruz [facility] Other 12-05-2023 09:15-0500Systolic blood dyjxoooe738 mm[Hg] Patrica Cruz Other [employer] Other 11-08-2023 10:35-0500Body kukawx494.8 cmKesha Clifton MD Work Phone: [facility]11-08-2023 10:35-0500Body temperature 97.7 [degF]Kesha Clifton MD Work Phone: [facility]11-08-2023 10:35-0500Body cimpah002.85 kgKesha Clifton MD Work Phone: [facility]11-08-2023 10:35-0500Diastolic blood acbygpxp60 mm[Hg]Kesha Clifton MD Work Phone: [facility]11-08-2023 10:35-0500Heart rate65 /min Kesha Clifton MD Work Phone: [facility]11-08-2023 10:35-0500Respiratory rate 16 /minKesha Clifton MD Work Phone: [facility]11-08-2023 10:35-6958DlK0% (BldA) [Mass fraction]96 %Kesha Clifton MD Work Phone: [facility]11-08-2023 10:35-0500Systolic blood tykeaxye766 mm[Hg]Kesha Clifton MD Work Phone: [facility]07-31-2023 12:16-0400Blood Pressure LocationPabebo HUERTA [facility]07-31-2023 12:16-0400Diastolic blood dbihzcqx79 mm[Hg]Elia HUERTA [facility]07-31-2023 12:16-0400Heart rate79 /minPatrick DEANNA [facility] [place] [address]-31-2023 12:16-0400Respiratory rate16 /minPatrick DEANNA [facility]07-31-2023 12:16-0400Systolic blood mcpeywyy650 mm[Hg]Elia HUERTA [facility]06-15-2023 09:00-0400Body qyxsxo677.8 cmPatrica Cruz Other [employer] Other 06-15-2023 09:00-0400Body mass index (BMI) [Ratio] 36.15 kg/s8QuimnbduPatrica Cruz Other [employer] Other 06-15-2023 09:00-0400Body mapuvgngrhv11.1 [degF] Patrica Cruz Other [employer] Other 06-15-2023 09:00-0400Body qsbpwe932.31 kgPatrica Cruz Other [employer] Other 06-15-2023 09:00-0400Diastolic blood moxcxcko52 mm[Hg] Patrica Cruz Other [employer] Other 06-15-2023 09:00-6840NiO5% (BldA) [Mass fraction]97 % Patrica Cruz Other [employer] Other 06-15-2023 09:00-0400Systolic blood ncgswpie352 mm[Hg] Patrica Cruz Other [employer] Other 11-14-2022 11:00-0500Body vqjeko354.8 cmPatrica Cruz Other [employer] Other 11-14-2022 11:00-0500Body mass index (BMI) [Ratio] 35.88 kg/t7WkeddumfPatrica Cruz Other [employer] Other 11-14-2022 11:00-0500Body mjmablphkme17.7 [degF] Patrica Anthony Other [place] [employer] Other 11-14-2022 11:00-0500Body frcbde053.45 kgPatrica Cruz Other [place] [employer] Other 11-14-2022 11:00-0500Diastolic blood cmfofxeh35 mm[Hg] Patrica Anthony Other [place] [employer] Other 11-14-2022 11:00-0500Respiratory rate18 /minPatrica Luqueforrest Other [place] [employer] Other 11-14-2022 11:00-4479HaU4% (BldA) [Mass fraction]98 % Patrica Anthony Other [place] [employer] Other 11-14-2022 11:00-0500Systolic blood kaedmeue203 mm[Hg] Patrica Anthony Other [place] [employer] Other 05-24-2022 10:54-0400Blood Pressure LocationWill Rivera Jr. [facility] 05-24-2022 10:54-0400Diastolic blood waiharwt33 mm[Hg] Will Rivera Jr. [facility] 05-24-2022 10:54-0400Heart rate71 /Jaleesa Rivera Jr. [facility] 05-24-2022 10:54-0400Respiratory rate16 /Jaleesa Rivera Jr. [facility] 05-24-2022 10:54-0400Systolic blood rzzigbqw857 mm[Hg] Will Rivera Jr. [facility] 05-12-2022 11:00-0400Body ypmcpl057.8 cmJeangela Cruz Other [employer] Other 05-12-2022 11:00-0400Body mass index (BMI) [Ratio] 36.21 kg/z7VstlmsjhPatrica Cruz Other [employer] Other 05-12-2022 11:00-0400Body .49 kgPatrica Cruz Other [employer] Other 05-12-2022 11:00-0400Diastolic blood oxvyamnb60 mm[Hg] Patrica Cruz Other [employer] Other 05-12-2022 11:00-0400Respiratory rate18 /minPatrica Cruz Other [employer] Other 05-12-2022 11:00-9137PcK7% (BldA) [Mass fraction]96 % Patrica Cruz Other [employer] Other 05-12-2022 11:00-0400Systolic blood rrtwnpfe867 mm[Hg] Patrica Cruz Other [employer] Other 11-10-2021 11:00-0500Body kpizsm771.8 cmDavidapollosally Anthony Other [facility] [employer] Other 11-10-2021 11:00-0500Body mass index (BMI) [Ratio] 36.07 kg/v2Nqnvrwubangela Cruz Other [place] [employer] Other 11-10-2021 11:00-0500Body .4 [degF] Patrica Anthony Other [place] [employer] Other 11-10-2021 11:00-0500Body kojvns960.04 kgDavidapollosally Anthony Other [place] [employer] Other 11-10-2021 11:00-0500Diastolic blood efhsrwct13 mm[Hg] Patrica Cruz Other [place] [employer] Other 11-10-2021 11:00-0500Respiratory rate18 /minDavidapollosally Anthony Other [place] [employer] Other 11-10-2021 11:00-6599BzQ3% (BldA) [Mass fraction]97 % Patrica Cruz Other [place] [employer] Other 11-10-2021 11:00-0500Systolic blood sargzpub623 mm[Hg] Patrica Cruz Other [employer] Other Encounters Encounter DateEncounter TypeCare ProviderFacilityStart: 02-10-2025 End: 98-30-8615Wwdhob flowsheetJr. Rachel Robertson DO Work Phone: [facility]: 02-10-2025 End: 49-90-7065Drxrmt flowsheetJr. Rachel Robertson DO Work Phone: [facility] Ry OrthopaedicsStart: 26-96-3690oynvgotdfl Patrica LuqueleFacility:[facility] Centertart: 02-10-2025 End: 18-72-9671Efmbde outpatient visit 40 minutesJr. Rachel Robertson DO Work Phone: [facility] Ry OrthopaedicsComment on above:Unilateral primary osteoarthritis, left knee (Primary Dx); Acute pain of left kneeStart: 02-10-2025 End: 56-26-5904ctkpwtoxvvMS., RACHEL ROBERTSONNot AvailableStart: 11-20-2024 End: 49-31-4766Dusiureob encounterManuel Birch NP Work Phone: [facility] Ry OrthopaedicsStart: 11-10-2024 End: 31-82-3452rrlhrbovfsREUDCFOI E PERRYFacility:EU BellevueStart: 11-10-2024 End: 49-17-6003Ogjpzfc encounter procedureJENNIFER E RADHA [facility] start: 11-04-2024 End: 21-43-8249oopetnjlzfEqefeyp Bryosn DO Work Phone: [facility] Work Phone: Start: 11-04-2024 End: 88-26-3594Ykspfpw encounter procedureGenaro Sheldon MD-[facility] Work Phone: Start: 09-28-2024 End: 73-35-0382Mxqjjaz encounter procedureMelissa Bryson DO-[facility] Work Phone: Start: 09-24-2024 End: 53-61-4338Xeknuca encounter procedureMelissa Bryson DO-[facility] Medicine [place] Work Phone: Start: 78-94-8911Wfzcaqfdzz RecurringMelissa DeWilde DO Work Phone: [facility] Acute Work Phone: Start: 09-16-2024 End: 68-33-5712kxoolzayjgDiiqpxu DeWilde DO Work Phone: [facility] Work Phone: Start: 09-16-2024 End: 07-12-2427Zxplpco encounter procedureMelissa DeWilde DO Work Phone: [facility] Ambulatory Work Phone: Start: 09-16-2024 End: 58-36-8968vlqobtgnpuCjynuwo DeWildeFacility:[facility] Hospitaltart: 79-55-6490Wjjneksrgs RecurringMelissa DeWilde DO Work Phone: [phone] [place] [address]-Physical Therapy [place] CreekStart: 08-19-2024 End: 30-63-9317Ebtjrdi encounter procedureMelissa DeWilde DO Work Phone: [phone] [place] [address]-[facility] Work Phone: Start: 08-19-2024 End: 61-02-8524bpbcwtscwsMzltyga DeWilde DO Work Phone: [phone] [place] [address] Work Phone: Start: 10-77-7421Rqk-patient / Non-visitMelissa DeWilde DO Work Phone: [facility] Work Phone: Start: 05-10-9818Hrivcrdvjn RecurringMelissa DeWilde DO Work Phone: [phone] [place] [address]-Physical Therapy [place] CreekStart: 07-27-2024 End: 85-86-7328Sgdbzhv encounter procedureMelissa DeWilde DO Work Phone: [facility] CtrStart: 07-27-2024 End: 88-83-4099wtxtryqchsAeldcfu Donlde DO Work Phone: [facility] Work Phone: Start: 07-27-2024 End: 25-34-0425qetnmbsrlzTqbjfotoqSelect [facility] Work Phone: Start: 07-27-2024 End: 10-74-3893Ytcmize encounter procedureD[facility]her [facility] Work Phone: Start: 19-02-6593Zpl-patient / Non-visitFirinova [facility] Work Phone: Start: 06-01-2024 End: 89-75-7241Utkhte flowsAdolph Birch [employer] Work Phone: NOTS FB ORTHOPAEDICSStart: 06-01-2024 End: 55-66-6359Isysim flowsAdolph Birch [employer] Work Phone: NOHH FB ORTHOPAEDICSStart: 06-01-2024 End: 88-74-7988Auccya outpatient visit 15 minutesManuel Birch [employer] Work Phone: noms FB ORTHOPAEDICSComment on above:History of right knee joint replacement (Primary Dx); Acute pain of right kneeStart: 06-01-2024 End: 86-33-0063wdhplgsoqrTHMCW T OLSENNot AvailableStart: 04-20-2024 End: 90-57-0741kftcsupovlVspufdz R WATERSFacility:EU BellevueStart: 04-20-2024 End: 28-67-7791Fdkwhes encounter procedureElia HUERTA [facility] start: 97-49-0573Amuwfgzyjm RecurringDO Clairejarrod Vasqueze Work Phone: [facility] Work Phone: Start: 02-19-2024 End: 79-65-8641cdfntzqeuhAM Claire Sanchez Work Phone: [facility] Work Phone: Start: 02-19-2024 End: 62-14-4666Obmevcg encounter procedureDO Claire Sanchez Work Phone: [facility] Work Phone: Start: 60-84-7200mfmyahrnopXjchwfiitSelect [facility] Work Phone: Start: 02-28-0661Pwr-patient / Non-visitD[facility] Physician [facility] Professional Co Work Phone: Start: 61-67-3247Ocr-patient / Non-visitDosher Memorial Hospital Physician GroupSt. [facility] Professional [facility] Work Phone: Start: 01-24-2024 End: 89-54-6207qzcesdkisfOappjtfiuSelect [facility] Specialty [facility] Work Phone: Start: 01-24-2024 End: 02-13-0083Dnoqxch encounter procedureDosher Memorial Hospital Physician GroupBoston [facility] Ry Work Phone: Start: 61-09-5147bzmogrfcqbYdayiya R WATERS Facility:FTMCStart: 10-14-2023 End: 09-16-2258Yec Drop offElia HUERTA [facility] Start: 10-14-2023 End: 14-71-4672vjkwwzwwcvXqraxvl R WATERSFacility:EU BellevueStart: 10-14-2023 End: 70-24-1939Vazvyil encounter procedureElia HUERTA [facility] start: 08-13-2023 End: 04-65-8531ifjgofaehtMuvgfb X OrzechFacility:EU evueStart: 08-13-2023 End: 03-03-2508Tsgdxzf encounter procedureAurora X Orzech [facility] start: 07-08-2023 End: 99-51-5616eugroknpxqZTY Patrica Cruz Work Phone: [facility] Work Phone: Start: 07-08-2023 End: 58-46-8415Evwkmsl encounter procedureDNP Patrica Cruz Work Phone: [facility] GroupH[facility] Farm Work Phone: Start: 05-06-2023 End: 26-07-4317mommhupqscFgernfp R WATERSFacility:EU tart: 05-06-2023 End: 67-12-0949Ajunxtj encounter procedurePatrick Brendan HUERTA [facility] start: 04-22-2023 End: 36-07-8269Mbdibnv encounter procedurePatrick R HUERTA [facility] start: 04-16-2023 End: 01-74-5426aujtvcljgxGajbiuoc Kaple Other [place] [employer] Other Start: 21-41-4595Rfpdjkhub for other preprocedural examinationJeapolloabrazo arrowhead campus AnthonyGood Samaritan HospitalyStart: 40-44-2006Lfpqra outpatient visit 25 minutesJeapolloabrazo arrowhead campus AnthonyFPG Family Medicine [place]kyStart: 04-16-2023 End: 14-62-6136Ukncutp encounter procedureDNP Patrica Anthony Work Phone: [facility] Ry Work Phone: Start: 04-13-2023 End: 39-28-1955tnksuiatmtDHU Patrica Anthony Work Phone: [facility] Work Phone: Start: 04-13-2023 End: 83-99-0662Qfviptc encounter procedureDNP Patrica Anthony Work Phone: [facility] Work Phone: Start: 04-09-2023 End: 69-24-8644osjixqnqomChxpabgl [employer] Other [employer] Other Start: 90-66-5194Xjcbwxojs for other preprocedural examinationJennifer KapleFPG Family Medicine Sandkents hillyStart: 84-49-9211Fllhghoit encounterJennifer KapleFPG Family Medicine [place]kyStart: 04-02-2023 End: 51-92-5468iybdfkjnwvSddetnbk [employer] Other [employer] Other Start: 63-32-5321Tyigxewps encounterJennifer KapleFPG Primary CareStart: 04-01-2023 End: 95-49-4451uxgklvfvlbNhncofqj [employer] Other [employer] Other Start: 61-34-3708Eacmnb outpatient visit 25 minutes Patrica CruzFPG Family Medicine [place]kyStart: 03-19-2023 End: 51-37-9884thnxjjavafSipzhxkx [employer] Other [employer] Other Start: 21-16-7968Npkzxj outpatient visit 25 minutes Patrica Hartman [facility] HospitalyStart: 03-18-2023 End: 81-04-6092thyejoimxuHfuemljl [facility] Other [facility] [employer] Other Start: 17-11-3454Lqcctdkfg encounterPatrica Hartman [facility] HospitalyStart: 03-05-2023 End: 74-51-8710dcpjzuobffJahnzakt Rebelle Other [facility] [employer] Other Start: 08-99-2298Avofsciyk encounterPatrica Hartman [facility] HospitalyStart: 02-20-2023 End: 55-45-5318sytuwobpbtICYMI KARAMLOUFacility:Centervilletart: 02-20-2023 End: 85-47-3090yfvjapoeutGqfisMegan Clifton MD Work Phone: Hematology/OncologyComment on above:Thrombocytopenia (HCC) (Primary Dx); Platelets decreased (HCC)Start: 02-20-2023 End: 53-60-5761Scwweqp encounter Beltran Clifton MD Work Phone: SANDUSKYStart: 08-01-2903Kotpitkfd encounterCrystal Cooley RNHematology/OncologyComment on above:Patient UpdateStart: 01-23-2023 End: 58-18-6672evlqrnrafuVLFJS KARAMLOUFacility:Centervilletart: 35-59-0285Uwoff Champ Clifton MD Work Phone: Hematology/OncologyStart: 12-25-2022 End: 67-34-2589Smmcbbe encounter Sky HUERTA [facility] Start: 11-12-2022 End: 18-61-3125Alncfva encounter Sky HUERTA [facility] start: 11-07-2022 End: 52-48-3469alhvvaqqwkHQT Patrica Anthony Work Phone: [facility] Work Phone: Start: 11-07-2022 End: 06-47-1005Qcvegqv encounter procedureDNP Patrica Anthony Work Phone: [facility] Work Phone: Start: 10-08-2022 End: 91-09-7131uphfvqgnylLjhzyfys [employer] Other [facility] Other Start: 87-16-8684Urbgburwo encounterJennifer KapleFPG [facility] Medicine [place]kyStart: 09-27-2022 End: 60-44-5855fxjpjiluwuNpkihhvb [employer] Other [employer] Other Start: 37-13-9246Ulutjmt encounter procedureJennifer KapleFPG [facility] [place]kyStart: 02-26-2022 End: 44-98-6444orboxtnjcrMjgnwazw [employer] Other [employer] Other Start: 17-00-0105Hmfgbh outpatient visit 25 minutes Patrica CruzFPG [facility] [place]kyStart: 12-26-2021 End: 57-84-4912ddhxqtgmapYbjfljow [employer] Other [facility] Other Start: 42-39-7626Qwdkoylju encounterJennifer KapleFPG [facility] Medicine [place]kyStart: 09-05-2021 End: 75-01-0562Etkjdsv encounter procedureWill Rivera Jr. [facility] start: 08-24-2021 End: 20-53-5032eyrsrcqpqrRbdgydbd [facility] Other [facility] [employer] Other Start: 24-08-5904Nkilqsp encounter procedureDavidapollosally [facility] Medicine [place]kyStart: 02-22-2021 End: 81-96-4174rzoiessgqxOnagheeu Kap[employer] Other [facility] [employer] Other Start: 65-33-1788Gkruvd outpatient visit 25 minutes Patrica Minnie [facility] SanduskyStart: 45-34-4697grszfclbagJLTTOTLV KAPLEFacility:W5Jptpb: 09-02-2020 End: 78-26-1376fmophzodwiDFICTGJH KAPLEFacility:B2Upyep: 08-31-2020 End: 50-35-6435izgdgptjroAC WILL RIVERA JRFacility:S1Oluvo: 06-01-2020 End: 69-55-5035ihpcdsjweqUE NONE LISTED REQUESTFacility:T2Zlobz: 05-09-2020 End: 48-08-5186onzrjhzqrcMY NONE LISTED REQUESTFacility:H1 Procedures DateProcedureProcedure DetailPerforming ClinicianStart: 62-57-8267Ntuwnyxqwe examination knee 1/2 viewsJrNolan Robertson DO Work Phone: Start: 32-76-7944K-ray of cervical spineMelissa DeWilde DO Work Phone: Start: 84-41-9164Kwzykauktc examination knee 1/2 views Manuel Birch NP Work Phone: Start: 75-62-5231Phbggs measurementMelissa DeWilde DO Work Phone: Comment on above:This test was developed and its performance characteristicsdetermined by [employer]. It has not been cleared orapproved by the Food and Drug Administration. Detection Limit = 5Performed at: [facility] - [address] [place], [place] [id number] Director: Marco Coronel MD, Phone: [phone]: 68-53-3489Hwossjwcx B core antibody measurementMeljarrod Sanchez DO Work Phone: Comment on above:Performed at: [facility] ComeksKatelyn [place] [id number] [place], [place] [id number] Director: Jeffery Washburn PhD, Phone: [phone]: 40-60-6007Qkvib immunodeficiency virus antibody testMeljarrod Sanchez DO Work Phone: Comment on above:HIV-1/HIV-2 antibodies and HIV-1 p24 antigen were NOTdetected. There is no laboratory evidence of HIV infection.HIV NegativePerformed at: [facility] Zoom[employer] HoldingSt. Francis Medical CenterTcwtcm0219 [place], [place] [id number] Director: Jeffery Washburn PhD, Phone: [phone]: 04-18-2023 Transurethral prostatectomyPatrihealth [facility] [employer] Start: 43-67-1288Nlkbx chest X-rayDNP Patrica Cruz Work Phone: Start: 69-44-1739Szpiiogimsodv cystoscopyTurkey Creek [employer] Start: 09-53-0632Ficonrpezd studiesTurkey Creek HUERTA Start: 49-34-7323RPZ screeningDR NONE LISTED REQUEST Comment on above:Performed By: #### PSAD #### [facility] [address] [place] [address] Martha MajorenStart: 96-82-9550Dmxkg sinus procedureWill Rivera Jr. start: 61-67-5284Qmdyeclp of basal cell carcinomaWill Rivera Jr. start: 21-40-1315Awbmegvu surgeryWill Rivera Jr. start: 78-03-3141YlpnmzyesxpYqrbns Smith Jr. start: 88-39-8714Fqpmlthwzgy of kneeWill Rivera Jr. start: 22-58-0667Qrpzuvivhh operation for obstructive sleep apnea and snoringWill Rivera Jr. History of operative procedure on kneeHistory of right knee joint replacementManuel Birch NP Work Phone: History of operative procedure on kneeHistory of right knee joint replacementManuel Birch [employer] Work Phone: TonsillectomyWill Rivera Jr. Plan of Treatment DateCare ActivityDetailAuthorStart: 13-37-8992Mudfejmz ScreeningDiabetes ScreeningVenice ClinicStart: 05-31-2025 End: 17-90-8997Wbskclw encounter procedureNOSAINT JOSEPH HOSPITAL WEST ORTHOPAEDICSStart: 04-12-2025 End: 37-25-4625Aaoouwh encounter ruiuufixu84/29/2025 10:00 AM EST Office Visit [facility] [address] [place] [address] Manuel Birch, TAN [address] [place] [address] [facility] [place] [facility]opaedicsStart: 02-10-2025 End: 75-74-1442Zvjjudg encounter kykrqquil29/29/2025 10:30 AM EDT Office Visit [facility] [address] [facility] [address] [place] [address] Jr. Rachel Robertson, [address] [place] [address] ArrivedNOMS [facility] Comment on above:ArrivedStart: 90-27-9962NNBUD-19 Vaccine ( season) COVID-19 Vaccine ( season)[facility] HealthcareStart: 88-14-6609Exqksxaml vaccinationInfluenza Vaccine (#1)[facility] HealthcareStart: 06-01-2024 End: 46-96-4960Vsvkcfg encounter rvtpqqagx56/17/2025 10:45 AM EST Office Visit [facility] [address] [place] [id number] Manuel Birch, [employer] [address] [place] [address] Acute pain of right kneeNOMS FB ORTHOPAEDICSComment on above:Acute pain of right kneeStart: 26-99-7811Qlhfaph [facility] Work Phone: Start: 93-14-6506Pwlbttxnr vaccinationInfluenza Vaccine (#1)[facility] HealthcareStart: 64-39-7010Fjlvwuq [facility] Work Phone: Start: 99-06-4181Zdfvh-19 Vaccine ( season) Covid-19 Vaccine ( season)[facility]art: 84-34-2122Mdnwubprf vaccinationInfluenza Vaccine (#1)[facility]: 42-43-2936Xtjjumh Directive DiscussionAdvance Directive DiscussionMarietta Osteopathic Clinictart: 12-61-7824Smkykmeqoz AssessmentDepression AssessmentMarietta Osteopathic Clinictart: 88-02-3254Dixjktuwamso Vaccine: 65+ Years (2 of 2 - PCV)Pneumococcal Vaccine: 65+ Years (2 of 2 - PCV)[facility] HealthcareStart: 75-86-5095HJtI/Tdap/Td Vaccines (2 - Tdap)DTaP/Tdap/Td Vaccines (2 - Tdap)[facility] CenterStart: 74-55-3358Cxdya microalbumin profileDTaP,Tdap,Td Vaccine (1 - Tdap)[facility]: 40-87-9246Nxdzuczcugbo Vaccine: 65+ (1 - PCV)Pneumococcal Vaccine: 65+ (1 - PCV) [facility]: 39-13-6424JMG Vaccine (1 - 1-dose 60+ series)RSV Vaccine (1 - 1-dose 60+ series)[facility]: 23-35-1885Abeoytbz Vaccine (1 of 2)Shingrix Vaccine (1 of 2)[facility]: 84-66-1454Cnuklkeiq (FIT-DNA) Cologuard (FIT-DNA)[facility]: 08-68-0400LqqoiwwnjntRjxwsqnooqz [facility]: 45-71-8812Cnbqmeaaoc Cancer ScreeningColorectal Cancer ScreeningMarietta Osteopathic Clinictart: 19-46-6607IQ COLONOGRAPHYCT COLONOGRAPHY [facility]: 47-52-1796Wmvawyqr ScreeningDiabetes ScreeningMarietta Osteopathic Clinictart: 19-45-4792Ifklx Occult BloodFecal Occult BloodChillicothe [facility] Medical Center Start: 32-70-2121ZZXMNRHKKDZIFTNSVFKDKVHDBWOueevkqrb ClinicStart: 11-19-19851995 panel - Serum or PlasmaLipid ScreeningMarietta Osteopathic Clinictart: 06-20-4011Sfhlq microalbumin profileDTaP,Tdap,Td Vaccine (1 - Tdap)[facility]: 24-38-3374Lgmxzjxby C ScreeningHepatitis C ScreeningMarietta Osteopathic Clinictart: 96-53-3761Rvfnv-19 Vaccine (#1)Covid-19 Vaccine (#1)[facility]: 09-20-1540Eithaxrvu Aortic Aneurysm ScreeningAbdominal Aortic Aneurysm ScreeningMarietta Osteopathic Clinictart: 33-21-6025Gxmsgxqtp for malignant neoplasm of colonNOMS HealthcareAngiotensin converting enzyme [Enzymatic activity/volume] in Serum or PlasmaOur [facility] Comprehensive metabolic 1999 panel - Serum or PlasmaOur Lady Of Mercy Hospital - AndersonComprehensive metabolic 1999 panel - Serum or PlasmaOur Lady Of Mercy Hospital - AndersonComprehensive metabolic 1999 panel - Serum or PlasmaOur Lady Of Mercy Hospital - AndersonCopper measurementOur [facility] Hepatitis B core antibody measurementOur Lady Of Mercy Hospital - AndersonHepatitis B virus surface Ab [Presence] in SerumOur Lady Of Mercy Hospital - AndersonPatient referralOhiohealth [facility] Work Phone: Rheumatoid factor [Units/volume] in Serum or Plasma [facility] - AndersonXR Cervical spine 2 [facility] HospitalFirelands Regional [facility] CenterFire[facility] Immunizations Immunization DateImmunizationNotesCare DqfhfbabRhyrmdwh12-46-7600ygjzyqvhi, high dose seasonal, preservative-freeDavidnnifer Anthony Other [facility] CenterWoomkc48-10-2025vswboznwb virus vaccine, unspecified formulationCrystal Cooley [facility] 24-50-4247OPLEQ-19 Vaccine Pfizer - Documentation Purposes OnlyPatrica Cruz Other [facility]12-09-2020influenza (HD-IIV4) vaccine, age 65+ yr, high dose, quadrivalent, PF (FLUZONE HIGH-DOSE) Crystal Cooley RNChillicothe Va Medical CenterUnkkva28-22-1946sgcacahgv virus vaccine, unspecified formulationDNP Patrica Cruz Work Phone: [facility]12-09-2020influenza, high dose seasonal, preservative-freePatrica Cruz Other [facility] CenterInhrgt42-42-0405kervjufmlbzj polysaccharide vaccine, 23 valentPatrica Cruz Other [facility] CenterZzakfu78-96-4178qfsofccup virus vaccine, unspecified formulationDNP Patrica Cruz Work Phone: [facility]11-25-2019 pneumococcal conjugate vaccine, 13 valentPatrica Cruz Other [facility] CenterXshxsa20-90-9094lswgkwily, high dose seasonal, preservative-freePatrica Cruz Other [facility] CenterAwtkwi26-66-5818klwsyxy and diphtheria toxoids, adsorbed, preservative free, for adult use (5 Lf of tetanus toxoid and 2 Lf of diphtheria toxoid)Patrica Cruz Other [facility] CenterMiqpgu17-41-1446Xsjhpklih, injectable, Madin [facility] Canine Kidney, preservative free, quadrivalentCrystal Cooley RN [facility] [id number], seasonal, injectableJennifer Kaple Other [facility] CenterZlaags80-16-4866esvmpyehz, injectable, quadrivalent, contains preservativeFelicia Jeane RNChillicothe Va Medical Center10-01-2016 influenza, injectable, quadrivalent, preservative freeFelicia Jeane RN [facility] CenterNjqbdk02-97-8402hgskbusyx, seasonal, injectableJennifer Kaple Other [facility] CenterOrflzl93-23-4656whvvmugfo, injectable, madin jonh canine kidney, preservative freeFelicia Jeane RNChillicothe Va Medical Center Payers DatePayer CategoryPayerPolicy [id number] Health Insurance [id number] O MEDICARE SUPPLEMENT [id number] 2021-Present [phone] [address] [place] [address] [id number] 2016Medicare [id number] [id number] 1960 Rsxt-[id number] 2..840.1.423261.3.57[id number] 2..840.1.899789.3.57[id number] 2.16.840.1.585198.3.57[id number] 2.16.840.1.360260.3.57[id number] 2.0.1.040722.3.57[id number] 2.0.1.874406.3.57[id number] 2.0.1.190363.3.57[id number] 2.0.1.869406.3.57[id number] 2..1.866623.3.57[id number] 2..1.755851.3.57[id number] 2..1.659296.3.57[id number] 2..1.411878.3.57[id number] 2..1.590614.3.57[id number] 2..1.034022.3.57[id number] 2.0.1.57[id number] 2..1.426785.3.579.2.593 [id number] 2.0.1.5[id number] 2.0.1.9[id number] 2.840.1.366752.3.579.2.531 [id number] 2.16.840.1.7[id number] 2.16.840.1.982206.3.579.2.531 Social History DateTypeDetailFacilityStart: 09-05-2021 End: 76-49-2183Bksrimc smoking statusEx-smoker (finding)[facility] [employer] Other Start: 01-22-2023 End: 50-51-3045Khf Assigned At [facility] [employer] Other Start: 86-89-4273Ldo [facility] 08-13-1964 End: 89-87-4168Cgayxrg of tobacco useCurrent smokerMarietta Osteopathic Clinictart: 08-13-1964 End: 37-05-3354Srnakrq of tobacco useCigarette SmokerChillicothe Va Medical CenterHistory of tobacco usePassive smokerMarietta Osteopathic Clinictart: 01-22-2023 End: 83-85-8266Codrxja of Social functionMarietta Osteopathic Clinictart: 51-12-7738Jbx Assigned At BirthNot on fileMarietta Osteopathic Clinictart: 09-26-2022 End: 61-23-3422Nqwialu use and exposureSmokeless tobacco non-userMarietta Osteopathic Clinictart: 01-23-2023 End: 86-27-7788Cjceaqo intakeEx-drinker (finding)[facility] Clinictart: 38-45-1704Btucyqfa Score (1-100), lower number is lower rsuh12Mcrqfp[address] [place] [address] Start: 71-25-0934Dbxsdgm smoking status NHISNever smoked tobacco (finding) [facility] Hospitaltart: 54-27-0590Evtvirl CommentI have adult onset asthma as a result of my smoking.[facility] HealthcareStart: 92-64-7738Ryvufxe Commentquit drinking in 1978; caffeine intake: 1-2 cups per dayNODE Healthcare Start: 02-12-2017 End: 67-25-1790PzuFeel (finding)[facility] Hospitalexual OrientationExec[facility]rology [facility] Functional Status WcouLggtkuwiyzLzxijaDmvizazd55-23-7127Epvtmhjafn StatusN/AExec[facility] of [facility]07-01-2024Functional StatusN/A[facility]04-30-2024Functional StatusN/A [facility]01-22-2024Functional StatusN/A[facility]09-12-2023 Functional StatusN/AFHolzer Health System07-31-2023Functional StatusN/A [facility] Clinical Notes 02-22-2021 to 02-10-2025 Note Date & ZgrmCpndIoovivtz12-37-3275 History of Present illness Narrative* Jr. Rachel Robertson, DO - 02/10/2025 10:30 AM EDT Images from the original note were not included. HISTORY OF PRESENT ILLNESS: EST PT Rachel Ackerman is an 74 y.o. @ male. (EST PT) (NEW PROBLEM) - WORSENING (L) KNEE INSTABILITY ~2 YRS XRAY TODAY, 02/10/25 IN [facility] NO RECENT MRI NO MDP / PREDNISONE NO CORTISONE INJ NO PT NO PAIN MGMT DENIES CURRENT DISCOMFORT. ADMITS INSTABILITY / FREQUENT BUCKLING. CONSTANT SWELLING. DENIES N/T. ADMITS STIFFNESS AFTER PROLONGED PERIODS OF INACTIVITY. GOOD ROM - PAINFUL. DENIES WAKING HS. DENIES POPPING. CREAKING. NO PAIN MEDS. DENIES RECENT ICING / HEATING. ADMITS ELEVATION - WITH RELIEF. DENIES TOPICALS. WEARS HINGED KNEE BRACE WITH GOLF. COMPRESSION SLEEVE PRN. 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 HX (R) TKA 06/01/2019 - DR. MAKI ALLERGIES: Allergies[1] HOME MEDICATIONS: Current Outpatient Medications Medication Instructions atorvastatin (LIPITOR) 80 mg, Oral, Every 24 hours busPIRone (BUSPAR) 30 mg, Oral, 2 times daily ezetimibe (ZETIA) 10 mg, Oral, Every 24 hours finasteride (PROSCAR) 5 mg, Oral, Every 24 hours Gemtesa 75 MG tablet 1 tablet, Daily sertraline (ZOLOFT) 100 mg, Oral, Daily Trelegy Ellipta 200-62.5-25 MCG/ACT aerosol powder PHYSICAL EXAM: Knee Musculoskeletal Exam Gait Limp: left Inspection Leg length disparity: no discrepancy Left Erythema: none Effusion: mild Edema: none Ecchymosis: none Deformity: none Alignment: varus Palpation Left Left knee palpation is unremarkable. Increased warmth: none Masses: none Crepitus: patellofemoral and medial Tenderness: present Medial joint line: moderate Patella: mild Range of Motion Left Left knee range of motion is normal and full. Active extension: 5 Passive extension: 5 Active flexion: 115 Passive flexion: 120 Strength Left Left knee strength is normal. Extension: 5/5. Extension is affected by pain. Flexion: 5/5. Flexion is affected by pain. Instability Left Instability signs: none - stable Anterior drawer: normal Neurovascular Left Left knee neurovascular exam is normal. Pulses - PT: normal Posterior tibial: 2+ Capillary refill: warm and well-perfused Special Signs Left Left knee special signs are normal. General Constitutional: appears stated age Labored breathing: no Psychiatric: normal mood and affect Neurological: alert Skin: intact Lymphadenopathy: none Vitals: There is no height or weight on file to calculate BMI. Tobacco Use: Medium Risk (02/10/2025) Patient History Smoking Tobacco Use: Former Smokeless Tobacco Use: Never Passive Exposure: Not on file Alcohol Use: Not on file IMAGING: XR knee 1 or 2 views left Imaging Result: AP and lateral views of left knee showed severe varus deformity with bden-vh-covz articulation to the medial joint line, flattening of the articular surfaces to the medial joint line lateral joint line and patellofemoral joint. Subchondral sclerosis was noted at the medial joint line surfaces as well as the lateral joint line and patellofemoral joint. Marginal osteophytic formation was noted tricompartmentally. There is no evidence of fracture or dislocation. 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 Procedures Orders Placed This Encounter Procedures XR knee 1 or 2 views left Reason for exam:: Pain ASSESSMENT: ICD-10-CM 1. Unilateral primary osteoarthritis, left knee M17.12 2. Acute pain of left knee M25.562 XR knee 1 or 2 views left PLAN: We have discussed his symptoms, physical exam, and x-rays today length. We recommended a left totalknee arthroplasty. We will see him back on the day of surgery. The patient fully understands the risks and benefits of said surgical procedure. We have discussed both surgical and nonsurgical treatment options with the patient and the risks and benefits associated with both. The patient is requesting surgical intervention because the patient's symptoms were affecting the patient's activities of daily living and ability to sleep. The patient's symptoms were unresponsive to outpatient treatment options. After lengthy discussions involving but not limited to both surgical and nonsurgical treatment options the patient has requested surgical intervention and we will see them back on the day of surgery. The patient understands the risks ofsaid treatment. We have discussed both surgical and nonsurgical treatment options with the patient at length and the risks and benefits associated with both. The patient is requesting surgical intervention because they have not responded to outpatient treatment options including but not limited to rest ice, and home exercise program. Pain and decreased range of motion are affecting the patient''s ability to sleep and activities of daily living and we have recommended surgical intervention. We recommended surgery in the form of a total knee arthroplasty. Factors including the patient's age and longevity of pro sthesis, usual postoperative course, and possible need for revision in the future, and leg length inequality postoperatively were discussed at length. We have discussed with the patient that this is a major orthopedic procedure. We discussed that the patient may require more than the average 30 MEDlimited and may require greater than 7 days narcotic treatment postoperatively. Therefore, patient's narcotic usage will be tailored on an individual basis. If this patient at the time of surgery hasany of the following: Morbidities including but not limited to history of falling, cognitive impairment, BMI greater than 30, end-stage renal disease, respiratory failure, heart failure, kidney failure, liver failure, diabetes, cardiac event in the last year, sleep apnea, disorder, excessive tobacco use, if at the time of surgery the patient is greater than 80 years old, or the patient requires discharge to a retirement facility, the patient may require to have additional inpatient hospital stay days following the surgery. Physical therapy is contraindicated in this patient''s case because of the ahgl-fl-ftie articulation of the patient's knee.. Questions answered in laymen terms at the bedside. The diagnosis, home exercise plan and any ongoing restrictions/ recommendations reviewed. If unable to be reached in office, I recommend evaluation at nearest Emergency Room if any symptoms worsened or new symptoms develop for requiring urgent evaluation. [1] Allergies Allergen Reactions Doxazosin Itching documented in this encounterKansas City VA Medical CenterEbwixhvrtz15-26-4346 Telephone encounter Note* Telephone Encounter - Manuel Birch NP - 11/23/2024 9:53 AM EDT Rx printed for patient. [facility] CenterQiyzcmqlke49-00-5129 Miscellaneous Notes* Telephone Encounter - Manuel Birch NP - 11/23/2024 9:53 AM EDT Rx printed for patient. * Telephone Encounter - Cristina Story - 11/20/2024 11:06 AM EDT Patient called in requesting a 5 year disability placcard. Please advise [phone] documented in this encounterKansas City VA Medical CenterKaylkveoxp03-33-1823 Telephone encounter Note* Telephone Encounter - Cristina Story - 11/20/2024 11:06 AM EDT Patient called in requesting a 5 year disability placcard. Please advise [phone] [facility] CenterAmcdyirklq72-43-9117 Hospital Discharge instructions Patient Education 11/10/2024 15:37:52 Benign Prostatic Hyperplasia Benign Prostatic Hyperplasia Benign [...] urethra. Follow these instructions at home: Take fhzb-roo-wyagkgl and prescription medicines only as told by [...] provider. Document Revised: 10/18/2021 Document Reviewed: 10/18/2021 [employer] Patient Education 2023 [employer]. Follow Up Care 04/20/2024 13:08:48 With:PATRICA GARCIA PA-C, URL Address: [address] [place] [phone] When:Within 1 Year(s) [facility] [employer] 07-29-2025 NotePatient Education Urology Benign Prostatic Hyperplasia Benign prostatic [...] or symptoms? Symptoms of this condition include: ??? Getting up often during the night to urinate. ??? Needing to urinate frequently during the day. ??? Difficulty starting urine flow. ??? Decrease in size and strength of your urine stream. ??? Leaking (dribbling) after urinating. ??? Inability to pass urine. This needs immediate treatment. ??? Inability to completely empty your bladder. ??? Pain when you pass urine. This is more common if there is also an infection. ??? Urinary tract infection (UTI). How is this diagnosed? This condition is diagnosed based on your medical history, a physical exam, and your symptoms. Tests will also be done, such as: ??? A post-void bladder scan. This measures any amount of urine that may remain in your bladder after you finish urinating. ??? A digital rectal exam. In a rectal exam, your health care provider checks your prostate by putting a lubricated, gloved finger into your rectum to feel the back of your prostate gland. This exam detects the size of your gland and any abnormal lumps or growths. ??? An exam of your urine (urinalysis). ??? A prostate specific antigen (PSA) screening. This is a blood test used to screen for prostate cancer. ??? An ultrasound. This test uses sound waves [...] severity of your condition. Treatment may include: ??? Observation and yearly exams. This may be the only treatment needed if your condition and symptoms are mild. ??? Medicines to relieve your symptoms, including: ? Medicines to shrink the prostate. ? Medicines to relax the muscle of the prostate. ??? Surgery in severe cases. Surgery may include: ? Prostatectomy. In this procedure, the prostate tissue is removed completely through an open incision or with a laparoscope or robotics. ? Transurethral resection of the prostate (TURP). In this procedure, a tool is inserted through theopening at the tip of the penis (urethra). [...] procedure uses radio frequencies to destroy and removea small amount of prostate tissue. ? Interstitial laser coagulation (ILC). This procedure uses a laser to destroy and remove a small amount of prostate tissue. ? Transurethral electrovaporization (TUVP). This procedure uses electrodes to destroy and remove a small amount of prostate tissue. ? Prostatic urethral lift. This procedure inserts an implant to push the lobes of the prostate awayfrom the urethra. Follow these instructions at home: ??? Take tktf-ufj-gldydgy and prescription medicines only as told by your health care provider. ??? Monitor your symptoms for any changes. Contact your health care provider with any changes. ??? Avoid drinking large amounts of liquid before going to bed or out in public. ??? Avoid or reduce how much caffeine or alcohol you drink. ??? Give yourself time when you urinate. ??? Keep all follow-up visits. This is important. Contact a health care provider if: ??? You have unexplained back pain. ??? Your symptoms do not get (more content not included)...[facility]06-12-2025 Evaluation note* Diagnosis Onset Date Resolution Status Admit Date Bacterial conjunctivitis of right eye noneactiveJune 2024 11:47amCervical spine arthritisacuteJune 2024 11:37amInsomniaacuteJune 2024 11:37amLeft carpal tunnel syndromeacuteJune 2024 11:37amObstructive sleep apnea (adult) (pediatric)acuteJune 2024 11:37amTension headacheacuteJune 2024 11:37amType 2 diabetes mellitus without complication, without long-term current usacuteJune 2024 11:37am CystnoneactiveJune 2024 11:37amAsthmaacuteJuly 2024 9:32amBMI 34.0-34.9,adultacuteJuly 2024 9:32amGeneralized anxiety disorderacuteJuly 2024 9:32amObstructive sleep apnea (adult) (pediatric)acuteJuly 2024 9:32am [facility] Work Phone: 1(970) 269-511406-04-2025 Evaluation note* Diagnosis Onset Date Resolution Status Admit Date Chronic ITP (idiopathic thrombocytopenia ) acuteJune 2024 3:27pmElevated bilirubinacuteJune 2024 3:27pmBacterial conjunctivitis of right eyenoneactiveJune 2024 11:47amCervical spine arthritisacuteJune 2024 11:37amInsomniaacuteJune 2024 11:37amLeft carpal tunnel syndromeacuteJune 2024 11:37amObstructive sleep apnea (adult) (pediatric)acuteJune 2024 11:37amTension headacheacuteJune 2024 11:37amType 2 diabetes mellitus without complication, without long-term current usacuteJune 2024 11:37amCystnoneactiveJune 2024 11:37am AsthmaacuteJuly 2024 9:32amBMI 34.0-34.9,adultacuteJuly 2024 9:32am Generalized anxiety disorderacuteJuly 2024 9:32amObstructive sleep apnea (adult) (pediatric)acuteJuly 2024 9:32am [facility] Work Phone: 1(693) 892-157204-14-2025 Evaluation note* Diagnosis Onset Date Resolution Status Admit Date Arm paresthesia, left acuteApril 2024 11:30amChronic ITP (idiopathic thrombocytopenia)acuteApril 2024 11:30amElevated bilirubinacuteApril 2024 11:30amGeneralized anxiety disorderacuteApril 2024 11:30amObstructive sleep apnea (adult) (pediatric)acuteApril 2024 11:30amPrediabetesacuteApril 2024 11:30am Tension headacheacuteApril 2024 11:30amMedicare annual wellness visit, subsequentnoneactiveApril 2024 11:30am [facility] Work Phone: 1(999) 439-758104-14-2025 Evaluation note* Diagnosis Onset Date Resolution Status Admit Date Arm paresthesia, left acuteApril 2024 11:30amChronic ITP (idiopathic thrombocytopenia)acuteApril 2024 11:30amElevated bilirubinacuteApril 2024 11:30amGeneralized anxiety disorderacuteApril 2024 11:30amObstructive sleep apnea (adult) (pediatric)acuteApril 2024 11:30amPrediabetesacuteApril 2024 11:30am Tension headacheacuteApril 2024 11:30amMedicare annual wellness visit, subsequentnoneactiveApril 2024 11:30amChronic ITP (idiopathic thrombocytopenia)acuteJune 2024 3:27pmElevated bilirubinacuteJune 2024 3:27pm [facility] Work Phone: 1(853) 932-943602-17-2025 History of Present illness Narrative* Manuel Birch, TAN - 06/01/2024 10:45 AM EST Images from the original note were not included. HISTORY OF PRESENT ILLNESS: EST PT Rachel Ackerman is an 73 y.o. @ male. (EST PT) - YEARLY RECHECK (R) KNEE - S/P (R) TKA 06/01/2019 (5 YRS) XRAY TODAY, 06/01/24 IN [facility] XRAY 06/05/22, 06/04/23 IN [facility] XRAY 09/21/19, 12/14/19, 06/02/19, 06/01/21, 06/01/21 IN [facility] PT DENIES PAIN IN RT KNEE. TAKES TYLENOL OR IBU FOR GENERAL ACHES AND PAINS. OCCAS GIVING OUT SENSATION. 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 PT IS PLEASED WITH OUTCOME OF SURGERY. AMB UNASSISTED. ALLERGIES: Allergies Allergen Reactions Doxazosin Itching HOME MEDICATIONS: Current Outpatient Medications Medication Instructions atorvastatin (LIPITOR) 80 mg, Oral, Every 24 hours busPIRone (BUSPAR) 30 mg, Oral, 2 times daily ezetimibe (ZETIA) 10 mg, Oral, Every 24 hours finasteride (PROSCAR) 5 mg, Oral, Every 24 hours Gemtesa 75 MG tablet 1 tablet, Daily sertraline (ZOLOFT) 100 mg, Oral, Daily Trelegy Ellipta 200-62.5-25 MCG/ACT aerosol powder PHYSICAL EXAM: Right Knee Exam Muscle Strength The patient has normal right knee strength. Tenderness The patient is experiencing no tenderness. Range of Motion Extension: normal Flexion: normal Tests Varus: negative Valgus: negative Other Erythema: absent Scars: present Sensation: normal Pulse: present Vitals: There is no height or weight on file to calculate BMI. Tobacco Use: Medium Risk (08/16/2023) Patient History Smoking Tobacco Use: Former Smokeless Tobacco Use: Never Passive Exposure: Not on file Alcohol Use: Not on file IMAGING: XR knee 1 or 2 views right Imaging Result: 06/01/2024: Standing AP and LAT of right knee showed surgical position and alignment of prosthetic components without evidence of loosening or wear to the femoral, tibial, or patellar components. The alignment appeared to be anatomic. There was no evidence of accelerated or asymmetric wear to the patellar button or tibial tray. There was no evidence of fracture and/or dislocation. Impression: Stable RT total knee replacement. Manuel Birch APRN-[employer] OFFBEARER Procedures Orders Placed This Encounter Procedures XR knee 1 or 2 views right Order Specific Question: Reason for exam: Answer: total ASSESSMENT: ICD-10-CM 1. History of right knee joint replacement Z96.651 2. Acute pain of right knee M25.561 XR knee 1 or 2 views right PLAN: I reviewed xray with patient which showed stable RT TKA. He states that he is doing well overall with little to no right knee pain. Continue with tylenol/ibuprofen for breakthrough pain. He is cleared to continue activity as tolerated and will follow up in 1 year for RCK and xray. Questions answered in laymen terms at the bedside. The diagnosis, home exercise plan and any ongoing restrictions/ recommendations reviewed. If unable to be reached in office, I recommend evaluation at nearest Emergency Room if any symptoms worsened or new symptoms develop for requiring urgent evaluation. Manuel Birch APRN-SAW OFFBEARER documented in this encounterKansas City VA Medical CenterIweqbvsbxd98-03-7271 Hospital Discharge instructions Patient Education 04/20/2024 12:54:09 Overactive Bladder, Adult Overactive Bladder, Adult Overactive [...] You may also have very sensitive muscles thatmake your bladder squeeze too soon. This condition [...] your health care provider. General instructions Take ckyh-ohx-vueqkrh and prescription medicines only as told by your health care provider. If you were prescribed an antibiotic medicine, take it as told by your health care provider. Do notstop taking the antibiotic even if you start [...] provider. Document Revised: 12/19/2020 Document Reviewed: 12/19/2020 [employer] Patient Education 2023 [employer]. Follow Up Care 10/14/2023 12:40:03 With:RADHA SANDERS, PATRICA Marks, URL Address: [address] [place] [address] When: Unknown [facility] 01-06-2025 NotePatient Education Obstetrics and Gynecology Overactive Bladder, Adult [...] You may also have very sensitive muscles thatmake your bladder squeeze too soon. This condition may also be caused by other factors, such as: ??? Medical conditions: ? Urinary tract infection. ? Infection of nearby tissues. ? Prostate enlargement. ? Bladder stones, inflammation, or tumors. ? Diabetes. ? Muscle or nerve weakness, especially from these conditions: ? A spinal cord injury. ? Stroke. ? Multiple sclerosis. ? Parkinson's disease. ??? Other causes: ? Surgery on the uterus or urethra. ? Drinking too much caffeine or alcohol. ? Certain medicines, especially those that eliminate extra fluid in the body (diuretics). ? Constipation. What increases the risk? You may be at greater risk for overactive bladder if you: ??? Are an older adult. ??? Smoke. ??? Are going through menopause. ??? Have prostate problems. ??? Have a neurological disease, such as stroke, dementia, Parkinson's disease, or multiple sclerosis (MS). ??? Eat or drink alcohol, spicy food, caffeine, and other things that irritate the bladder. ??? Are overweight or obese. What are the signs or symptoms? Symptoms of this condition include a sudden, strong urge to urinate. Other symptoms include: ??? Leaking urine. ??? Urinating 8 or more times a day. ??? Waking up to urinate 2 or more times overnight. How is this diagnosed? This condition may be diagnosed based on: ??? Your symptoms and medical history. ??? A physical exam. ??? Blood or urine tests to check for possible causes, such as infection. You may also need to see a health care provider who specializes in urinary tract problems. This is called a urologist. How is this treated? Treatment for overactive bladder depends on the cause of your condition and whether it is mild or severe. Treatment may include: ??? Bladder training, such as: ? Learning to control the urge to urinate by following a schedule to urinate at regular intervals. ? Doing Kegel exercises to strengthen the pelvic floor muscles that support your bladder. ??? Special devices, such as: ? Biofeedback. This [...] into the vagina and supports the bladder. ??? Medicines, such as: ? Antibiotics to treat bladder infection. ? Antispasmodics to stop the bladder from releasing urine at the wrong time. ? Tricyclic antidepressants to relax bladder muscles. ? Injections of botulinum toxin type A directly into the bladder tissue to relax bladder muscles. ??? Surgery, such as: ? A device may be implanted to help manage the nerve signals that control urination. ? An electrode may be implanted to stimulate electrical signals in the bladder. ? A procedure may be done to change the shape of the bladder. This is done only in very severe cases. Follow these instructions at home: Eating and drinking ??? Make diet or lifestyle changes recommended by [...] such as fried and sweet foods. Lifestyle ??? Lose weight if needed. ??? Do not use any products that contain nicotine or tobacco. These include cigarettes, chewing tobacco, and vaping devices, such as e-cigarettes. If you need help quitting, ask your health care provider. General instructions ??? Take wisw-lwd-yugipqd and prescription medicines only as told by your health care provider. ??? If you were prescribed an antibiotic medicine, take it as told by your health care provider. Donot stop taking the antibiotic even if you start to feel better. ??? Use any implants or pessary as told by your health care provider. ??? If needed, wear pads to absorb urine leakage. ??? Keep a log to track how much and when you drink, and whe (more content not included)...[facility]07-01-2024 Hospital Discharge instructions Patient Education 10/14/2023 12:30:27 [...] urethra. Follow these instructions at home: Take fdek-xxj-fookfjj and prescription medicines only as told by [...] provider. Document Revised: 10/18/2021 Document Reviewed: 10/18/2021 [employer] Patient Education 2022 [employer]. Follow Up Care 05/06/2023 11:58:45 With:DEANNA WADDELL, Elia Cardona, URL Address: [facility] [address], [place] [address]- [phone] When: Unknown [facility] [place] 07-01-2024 NotePatient Education Urology Benign Prostatic Hyperplasia Benign prostatic [...] urine that may remain in your bladder afteryou finish urinating. ? A digital rectal exam. [...] this procedure, a tool is inserted through theopening at the tip of the penis (urethra). [...] procedure uses radio frequencies to destroy and removea small amount of prostate tissue. ? Interstitial laser coagulation (ILC). This procedure uses a laser to destroy and remove a small amount of prostate tissue. ? Transurethral electrovaporization (TUVP). This procedure uses electrodes to destroy and remove a small amount of prostate tissue. ? Prostatic urethral lift. This procedure inserts an implant to push the lobes of the prostate awayfrom the urethra. Follow these instructions at home: ? Take jkqc-bhi-lqwobgq and prescription medicines only as told by [...] You develop side effec (more content not included)...[facility]04-30-2024 Hospital Discharge instructions Patient Education 08/13/2023 09:52:57 [...] urethra. Follow these instructions at home: Take pzvh-aum-sfqzuai and prescription medicines only as told by [...] provider. Document Revised: 10/18/2021 Document Reviewed: 10/18/2021 [employer] Patient Education 2022 [employer]. 08/13/2023 09:52:56 Urinary Incontinence Urinary Incontinence Urinary incontinence refers to a condition in which a person is unable to control where and when topass urine. A person with this condition will urinate involuntarily. This means that the person urinates when he or she does not mean to. What are the causes? This condition may be caused by: Medicines. Infections. Constipation. Overactive bladder muscles. Weak bladder muscles. Weak pelvic floor muscles. These muscles provide support for the bladder, intestine, and, in women,the uterus. Enlarged prostate in men. The prostate [...] a small amount, or constantly dribbling urine (overflowincontinence). Urinating because you cannot get to the [...] fiber include beans, whole grains, and fresh fruitsand vegetables. Behavioral changes, such as: ?Pelvic floor [...] nerve stimulation). ?For women, using a medical safety director to prevent urine leaks. This is a small, tampon-like, disposabledevice that is inserted into the urethra. ?Injecting [...] right after experiencing incontinence. General instructions Take hheb-xqx-pdpjjzn and prescription medicines only as told by [...] important. Where to find more information National [place] of Diabetes and Digestive and Kidney Diseases: www.niddk.nih.gov [place] [employer]: www.urologyhealth.org Contact a health care [...] is unable to control where and when topass urine. This condition may be caused by medicines, infection, weak bladder muscles, weak pelvic floor muscles, enlargement of the prostate (in men), or surgery. Factors such as older age, obesity, and childbirth, menopause, neurological diseases, andchronic coughing may increase your risk for developing [...] provider. Document Revised: 11/04/2020 Document Reviewed: 11/04/2020 [employer] Patient Education 2022 [employer]. 08/13/2023 09:52:52 Overactive Bladder, Adult Overactive Bladder, [...] You may also have very sensitive muscles thatmake your bladder squeeze too soon. This condition [...] your health care provider. General instructions Take mcrk-yqz-alfradf and prescription medicines only as told by your health care provider. If you were prescribed an antibiotic medicine, take it as told by your health care provider. Do notstop taking the antibiotic even if you start [...] provider. Document Revised: 12/19/2020 Document Reviewed: 12/19/2020 [employer] Patient Education 2022 [employer]. 08/13/2023 09:52:51 Kegel Exercises Kegel Exercises Kegel [...] muscles. These are the same muscles you squeezewhen you try to stop the flow of [...] tight lift in your rectal area. If youare a female, you should also feel a [...] provider. Document Revised: 08/10/2021 Document Reviewed: 08/10/2021 [employer] Patient Education 2022 [employer]. 08/13/2023 09:52:50 Hematuria, Adult Hematuria, Adult Hematuria is blood in the urine. Blood may be visible in the urine, or it may be identified with a test. This condition can be caused by infections of the bladder, urethra, kidney, or prostate. Otherpossible causes include: Kidney stones. Cancer of the [...] blood in your urine, even if it ispainless or the blood stops without treatment. Blood in the urine, when it happens and then stops and then happens again, can be a symptom of a very serious condition, including cancer. There is no pain in the initial stages of many urinary cancers. Follow these instructions at home: Medicines Take qjee-uuo-htjceuy and prescription medicines only as told by your health care provider. If you were prescribed an antibiotic medicine, take it as told by your health care provider. Do notstop taking the antibiotic even if you start to feel better. Eating and drinking Drink enough fluid to keep your urine pale yellow. It is recommended that you drink 3 4 quarts (2.83.8 L) a day. If you have been diagnosed with an infection, drinking cranberry juice in addition tolarge amounts of water is recommended. Avoid caffeine, [...] about any blood in your urine, even ifit is painless or the blood stops without treatment. Take tuuw-tbb-wjspzva and prescription medicines only as told by your health care provider. Drink enough fluid to keep your urine pale yellow. This information is not intended to replace advice given to you by your health care provider. Make sure you discuss any questions you have with your health care provider. Document Revised: 11/30/2020 Document Reviewed: 11/30/2020 [employer] Patient Education 2022 [employer]. [facility] 01-22-2024 Hospital Discharge instructions Patient Education 05/06/2023 11:41:14 [...] urethra. Follow these instructions at home: Take uvmi-ljc-wqencdd and prescription medicines only as told by [...] provider. Document Revised: 10/18/2021 Document Reviewed: 10/18/2021 [employer] Patient Education 2022 [employer]. Follow Up Care 12/27/2022 13:41:01 With:DEANNA WADDELL, Elia Cardona, URL Address: [facility] [address], [place] [address]- When:Within 3 Month(s) [facility] [place] 01-02-2024 Evaluation note* Encounter Date Diagnosis Assessment Notes Treatment Notes Treatment Clinical Notes Apr, Controlled type 2 di abetes mellitus without complication, without long-term current use of insulin (ICD-10 - E11.9) Hgba1c in the office now shows type II diabetes. He declines any further medication being added at this time and would like to focus on diet and exercise changes and have it rechecked in 3 months. Headryanll follow up in 3 months for recheck in this. Patient is advised to work on healthy diet choices and appropriate servings, weight control, regular exercise as directed, reduced fat intake, and saltavoidance. Patient voiced understanding of this and agrees to this plan. Apr,re-op evaluation (ICD-10 - Z01.818) Rachel is a 72 year old male who presents today for preoperative clearance for upcoming TURP on 04/18/[address] Huerta. Patient completed EKG and CXR. Has had anesthesia in the past and tolerates it well without issues. No dentures or partials. Saw hematology Dr. Cilfton r/t low platletts, blood work and liver and spleen us was done. He was cleared from hematology for his upcoming prostate surgery. Recently completed lab work, EKG and CXR. Lab work including CBC, BMP, PT/INR, PTT are stable. EKG: NSR. CXR showed: hyperinflation and mild atelectasis and scarring. He states that he will call after hisTURP and obtain PFT order and pulmonary referral. Stop bang score: Wears bipap for JOSE ANGEL. Follows with sleep lab. Feels like he rests good. Revised Cardiac Risk Index for preop risk score: 0 points Class I Risk 3.9% 30- day risk of , [place], or cardiac arrest. DASI (Berger Activity Status [...] to be of appropriate risk for surgery withDr. Huerta. Apr,Mixed hyperlipidemia (ICD-10 - E78.2) Currently taking Zetia [...] exercise as directed, and reduce fat intake. Apr,Generalized anxiety disorder (ICD-10 - F41.1) No suicidal or homicidal ideations. Well controlled at this time with Buspar 30 mg BID and Sertraline 100 mg BID. Will continue current treatment plan at this time. Apr,Moderate episode of recurrent major depressive disorder (ICD-10 - F33.1) No suicidal or homicidal ideations. Well controlled at this time with Buspar 30 mg BID and Sertraline 100 mg BID . Will continue current treatment plan at this time. Apr,sthma (ICD-10 - J45.909) CXR results reviewed with him, likely shows some degree of COPD as well with his hyperinflation. Hewants to follow up with pulmonary after his TURP with Dr. Huerta and obtain PFT, he will let our office know when he wants this referral sent. Currently taking Breo 200/25 mcg inhalation 1 puff daily. Will continue current treatment plan at this time. Apr,Obstructive sleep apnea (adult) (pediatric) (ICD-10 - G47.33) Patient is very compliant with JOSE ANGEL BIPAP machine. Will continue current treatment plan at this time. Consult notes reviewed from sleep lab. Continue to follow with Dr. Sheldon at sleep lab. Apr,enign prostatic hyperplasia with lower urinary tract symptoms (ICD- 10 - N40.1) He will be having surgery with his urologist. He is to continue to follow with urology. He will be seeing Dr. Huerta soon. 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 It was recommended to repeat these every year. He completed in 2022. Apr,Obesity (BMI 35.0-39.9 without comorbidity) (ICD-10 - E66.9) Patient is advised to work on healthy diet choices and appropriate servings, weight control, regular exercise as directed, reduced fat intake, and salt avoidance. Patient voiced understanding of thisand agrees to this plan. [employer] Other 12-26-2023 Evaluation note* Encounter Date Diagnosis Assessment Notes Treatment Notes Treatment Clinical Notes Mar, Pre-op evaluation (ICD-10 - Z01. 818) [employer] Other 12-19-2023 Evaluation note* Encounter Date Diagnosis Assessment Notes Treatment Notes Treatment Clinical Notes Mar, Abnormal CBC (ICD-10 - R79.89) [employer] Other 12-18-2023 Evaluation note* Encounter Date Diagnosis Assessment Notes Treatment Notes Treatment Clinical Notes Mar, Controlled type 2 di abetes mellitus without complication, without long-term current use [...] months for recheck in this. Patient is advisedto work on healthy diet choices and appropriate servings, weight control, regular exercise as directed, reduced fat intake, and salt avoidance. Patient voiced understanding of this and agrees to thisplan. Mar,Newly diagnosed diabetes (ICD-10 - E11.9) See above treatment plan. Mar,Elevated blood pressure reading without diagnosis of hypertension (ICD-10 - R03.0) Patient blood pressure reading elevated while in the office today. Instructed patient to check blood pressures at home daily. Patient to notify office should SBP > 140 or DBP > 90 consistently.Patient verbalizes understanding and agrees to treatment plan. Mar,Mixed hyperlipidemia (ICD-10 - E78.2) Currently taking Zetia [...] exercise as directed, and reduce fat intake. Mar,eneralized anxiety disorder (ICD-10 - F41.1) No suicidal or homicidal ideations. Well controlled at this time with Buspar 30 mg BID and Sertraline 100 mg BID. Will continue current treatment plan at this time. Mar,Moderate episode of recurrent major depressive disorder (ICD-10 - F33.1) No suicidal or homicidal ideations. Well controlled at this time with Buspar 30 mg BID and Sertraline 100 mg BID . Will continue current treatment plan at this time. Mar,sthma (ICD-10 - J45.909) Still mildly flared up from his COVID episode. Will refill his Zithromax as it was almost completely resoloved while taking and he needs to be back to baseline for upcoming prostate surgery. Currently taking Breo 200/25 mcg inhalation 1 puff daily. Will continue current treatment plan at this time.He may consider referral to pulmonary at his next OV possibly, he will let us know. Mar,Obstructive sleep apnea (adult) (pediatric) (ICD-10 - G47.33) Patient is very compliant with JOSE ANGEL BIPAP machine. Will continue current treatment plan at this time. Consult notes reviewed from sleep lab. Continue to follow with Dr. Sheldon at sleep lab. Mar,enign prostatic hyperplasia with lower urinary tract symptoms (ICD- 10 - N40.1) He will be having surgery with his urologist. He is to continue to follow with urology. He will be seeing Dr. Huerta soon. Mar,bnormality of abdominal aorta (ICD-10 - Q25.40) He had an abnormality of his aorta in 2016. It was recommended to repeat these every year. He completed in 2022 but we never received results. [facility] are [facility]. Mar,Obesity (BMI 35.0-39.9 without comorbidity) (ICD-10 - E66.9) Patient is advised to work on healthy diet choices and appropriate servings, weight control, regular exercise as directed, reduced fat intake, and salt avoidance. Patient voiced understanding of thisand agrees to this plan. [employer] Other 12-05-2023 Evaluation note* Encounter Date Diagnosis [...] verbalizes understanding and agrees to treatment plan. Mar,ronchitis (ICD-10 - J40) See above treatment plan. [employer] Other 11-21-2023 Evaluation note* Encounter Date Diagnosis Assessment Notes Treatment Notes Treatment Clinical Notes Feb, COVID-19 (ICD-10 - U07.1) [employer] Other 11-08-2023 NoteHNO ID: [id number] Author: Kesha Clifton MD Service: ? Author Type: Physician Type: Progress Notes Filed: 02/20/2023 10:57 AM Note Text: PATIENT NAME: Rachel Ackerman CLINIC NO.: [id number] ATTENDING PHYSICIAN: Kesha Clifton MD DATE OF [...] Range Status 01/23/2023 7.9 % Final Abs [place] Date Value Ref Range (more content not included)...[facility] 02-20-2023 History of Present illness Narrative* Kesha Clifton MD - 02/20/2023 10:50 AM EST Images from the original note were not included. PATIENT NAME: Rachel Ackerman [facility] NO.: [id number] ATTENDING PHYSICIAN: Kesha Clifton MD DATE OF [...] Range Status 01/23/2023 7.9 % Final Abs [place] Date Value Ref Range Status 01/23/2023 0.60 [...] do not hesitate to contact me at [phone]. Kesha Clifton MD Hematology/Medical Oncology [facility] spent a total of 20 minutes on the date of the service which included preparing to see the patient, qcfk-bp-kzmz patient care, completing clinical documentation, obtaining and/or reviewing separately obtained history, and counseling and educating the patient/family/caregiver. CC: Elia Huerta MD [facility] Miscellaneous Notes* Telephone Encounter - [...] Crystal Cooley RN Triage please fax to [phone] or call [phone] c/o Mary documented in [facility]Ch[facility]23 NoteHNO ID: [id number] Author: Kesha Clifton MD Service: ? Author Type: Physician Type: Progress Notes Filed: 01/23/2023 12:34 PM Note Text: PATIENT NAME: Rachel Ackerman [facility] NO.: [id number] ATTENDING PHYSICIAN: Kesha Clifton MD DATE OF [...] Heart: RRR without mur (more content not included)...[facility] 12-25-2022 Hospital Discharge instructions Patient Education 12/25/2022 17:00:26 [...] HUERTA Address: [facility] [address], [place] [address] [facility] (1) When: Unknown Comments:Office will call to schedule follow up [facility]09-12-2023 Evaluation + Plan noteExtracted from: Title:Urology Progress NoteAuthor:Elia HUERTA MD RDate:12/25/22 Impression and Plan Impression: #1. This gentleman has BPH with LUTS refractory to medications. He is obstructed urodynamically. He is desirous for a TURP. Plan: #1. He will continue his Flomax and pro scar for now. We are getting him scheduled for TURP under anesthesia.[facility]07-31-2023 Hospital Discharge instructions Patient Education 11/12/2022 13:31:45 [...] including vitamins, herbs, eye drops, creams, and xctp-zpo-zxwgjtq medicines. Any problems you or family members [...] provider tells you to take them. Taking ucjb-tmg-khvwesm medicines, vitamins, herbs, and supplements. Surgery safety [...] provider. Document Revised: 12/26/2021 Document Reviewed: 12/26/2021 [employer] Patient Education 2022 [employer]. 11/12/2022 13:23:11 Urodynamic Testing Urodynamic Testing Urodynamic [...] including vitamins, herbs, eye drops, creams, and lmur-bnq-oyyzlwu medicines. ?Whether you are or may be [...] provider. Document Revised: 12/13/2021 Document Reviewed: 11/04/2020 [employer] Patient Education 2022 [employer]. 11/12/2022 13:13:30 Benign Prostatic Hyperplasia Benign Prostatic [...] urethra. Follow these instructions at home: Take kyjn-hsy-unnvlgf and prescription medicines only as told by [...] provider. Document Revised: 10/18/2021 Document Reviewed: 10/18/2021 [employer] Patient Education 2022 [employer]. Follow Up Care 09/05/2021 11:51:48 With:DEANNA WADDELL, Elia Cardona, URL Address: [facility] [address] , [place] [address]- [phone] When: Unknown Comments:sched urodynamics and cysto [facility] 06-15-2023 Evaluation note* Encounter Date Diagnosis Assessment Notes Treatment Notes Treatment Clinical Notes Sep, Medicare annual wellness visit, subsequent (ICD-10 - Z00.00) Personalized health advice was given to the beneficiary including a written plan for screenings discussed and provided. Advanced care planning reviewed and/or information given as requested. The above visit was performed by Mary De Leon, under direct supervision of Patrica Cruz,DNP,CABLE PULLER,SAW OFFBEARER. Document reviewed and amended by provider signed below. Sep,rediabetes (ICD-10 - R73.03) He does have prediabetes. Hgba1c in the office shows good control of prediabetes. He is on no medication for this. Other routine lab work ordered previously, he will complete. Will continue current treatment plan pending lab results. Patient is advised to work on healthy diet choices and appropriate servings, weight control, regular exercise as directed, and reduce fat intake. Sep,Mixed hyperlipidemia (ICD-10 - E78.2) Currently taking Zetia [...] exercise as directed, and reduce fat intake. Sep,eneralized anxiety disorder (ICD-10 - F41.1) No suicidal or homicidal ideations. Well controlled at this time with Buspar 30 mg BID and Sertraline 100 mg BID. Will continue current treatment plan at this time. Sep,Moderate episode of recurrent major depressive disorder (ICD-10 - F33.1) No suicidal or homicidal ideations. Well controlled at this time with Buspar 30 mg BID and Sertraline 100 mg BID . Will continue current treatment plan at this time. Sep,sthma (ICD-10 - J45.909) Well controlled at this time with Breo 200/25 mcg inhalation 1 puff daily. Will continue current treatment plan at this time. Consult notes reviewed from pulmonary. Continue to follow with pulmonary. Sep,Obstructive sleep apnea (adult) (pediatric) (ICD-10 - G47.33) Patient is very compliant with JOSE ANGEL BIPAP machine. Will continue current treatment plan at this time. Consult notes reviewed from sleep lab. Continue to follow with Dr. Sheldon at sleep lab. Sep,enign prostatic hyperplasia with lower urinary tract symptoms (ICD- 10 - N40.1) Currently well controlled with Finasteride 5 mg daily and Flomax 0.4 mg daily. Will continue this at this time. Consult notes reviewed as received. He is to continue to follow with urology. He will be seeing Dr. Deanna martell. 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 He denies any symptoms related to this but we will go ahead and repeat the ultrasound to rule out abnormality. Further treatment pending results of testing. Sep,Obesity (BMI 35.0-39.9 without comorbidity) (ICD-10 - E66.9) Patient is advised to work on healthy diet choices and appropriate servings, weight control, regular exercise as directed, reduced fat intake, and salt avoidance. Patient voiced understanding of thisand agrees to this plan. [employer] Other 11-14-2022 Evaluation note* Encounter Date Diagnosis [...] exercise as directed, and reduce fat intake. Feb,Mixed hyperlipidemia (ICD-10 - E78.2) Currently taking Zetia [...] exercise as directed, and reduce fat intake. Feb,Generalized anxiety disorder (ICD-10 - F41.1) No suicidal or homicidal ideations. Well controlled at this time with Buspar 30 mg BID and Sertraline 100 mg BID. Will continue current treatment plan at this time. Feb,Moderate episode of recurrent major depressive disorder (ICD-10 - F33.1) No suicidal or homicidal ideations. Well controlled at this time with Buspar 30 mg BID and Sertraline 100 mg BID . Will continue current treatment plan at this time. Feb,sthma (ICD-10 - J45.909) Well controlled at this time with Breo 200/25 mcg inhalation 1 puff daily. Will continue current treatment plan at this time. Consult notes reviewed from pulmonary. Continue to follow with pulmonary. Feb,bstructive sleep apnea (adult) (pediatric) (ICD-10 - G47.33) Patient is very compliant with JOSE ANGEL BIPAP machine. Will continue current treatment plan at this time. Consult notes reviewed from sleep lab. Continue to follow with Dr. Sheldon at sleep lab. Feb,enign prostatic hyperplasia with lower urinary tract symptoms (ICD- 10 - N40.1) Currently well controlled with Finasteride 5 mg daily and Flomax 0.4 mg daily. Will continue this at this time. Consult notes reviewed. He is to continue to follow with urology. However, new referralsent today as he would like to see Dr. Rogers or Dr. Huerta instead of Dr. Rivera. 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 He denies any symptoms related to this but we will go ahead and repeat the ultrasound to rule out abnormality. Further treatment pending results of testing. Feb,besity (BMI 35.0-39.9 without comorbidity) (ICD-10 - E66.9) Patient is advised to work on healthy diet choices and appropriate servings, weight control, regular exercise as directed, reduced fat intake, and salt avoidance. Patient voiced understanding of thisand agrees to this plan. Feb,creening for prostate cancer (ICD-10 - Z12.5) Risks and benefits of PSA screening discussed with patient today. Patient wishes to get PSA screening done. PSA screening lab ordered today. Feb,Encounter for immunization (ICD-10 - Z23) Routine flu vaccine given today. Feb,therHe will follow up with ENT due to some fluid behind right ear. [employer] Other 05-24-2022 Hospital Discharge instructions Patient Education [...] urethra. Follow these instructions at home: Take ftbz-pus-nnibuix and prescription medicines only as told by [...] 04/01/2006 Document Revised: 02/24/2019 Document Reviewed: 05/06/2017 [employer] Patient Education Scaffold. Follow Up Care 09/01/2020 11:16:04 With:Miguel Martinez MD, STAS Neal Address: [facility] [address], [place] [address]- When: Unknown [facility] 05-12-2022 Evaluation note* Encounter Date Diagnosis Assessment Notes Treatment Notes Treatment Clinical Notes August, Medicare annual wellness visit, initial (ICD-10 - Z00.00) Personalized health advice was given to the beneficiary including a written plan for screenings discussed and provided. Advanced care planning reviewed and/or information given as requested. The above visit was performed by Radha COLLINS, under direct supervision of Patrica Cruz, DNP,CABLE PULLER, SAW OFFBEARER. Document reviewed and amended by provider signed below. August,rediabetes (ICD-10 - R73.03) He does have prediabetes. Hgba1c in the office shows good control of prediabetes. He is on no medication for this. Other routine lab work ordered. Will continue current treatment plan pending lab results. Patient is advised to work on healthy diet choices and appropriate servings, weight control, regular exercise as directed, and reduce fat intake. August,Mixed hyperlipidemia (ICD-10 - E78.2) Currently taking Zetia [...] exercise as directed, and reduce fat intake. August,Generalized anxiety disorder (ICD-10 - F41.1) No suicidal or homicidal ideations. Well controlled at this time with Buspar 30 mg BID and Sertraline 100 mg BID. Will continue current treatment plan at this time. August,Moderate episode of recurrent major depressive disorder (ICD-10 - F33.1) No suicidal or homicidal ideations. Well controlled at this time with Buspar 30 mg BID and Sertraline 100 mg BID . Will continue current treatment plan at this time. August,sthma (ICD-10 - J45.909) Well controlled at this time with Breo 200/25 mcg inhalation 1 puff daily. Will continue current treatment plan at this time. Consult notes reviewed from pulmonary. Continue to follow with pulmonary. August,bstructive sleep apnea (adult) (pediatric) (ICD-10 - G47.33) Patient is very compliant with JOSE ANGEL BIPAP machine. Will continue current treatment plan at this time. Consult notes reviewed from sleep lab. Continue to follow with Dr. Sheldon at sleep lab. August,enign prostatic hyperplasia with lower urinary tract symptoms (ICD- 10 - N40.1) Currently well controlled with Finasteride 5 mg daily and Flomax 0.4 mg daily. Will continue this at this time. Consult notes reviewed. He is to continue to follow with urology. August,MI 36.0-36.9,adult (ICD-10 - Z68.36) Patient is advised to work on healthy diet choices and appropriate servings, weight control, regular exercise as directed, reduced fat intake, and salt avoidance. Patient voiced understanding of thisand agrees to this plan. 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 He denies any symptoms related to this but we will go ahead and repeat the ultrasound to rule out abnormality. Further treatment pending results of testing. August,creening for prostate cancer (ICD-10 - Z12.5) Risks and benefits of PSA screening discussed with patient today. Patient wishes to get PSA screening done. PSA screening lab ordered today. [employer] Other 11-10-2021 Evaluation note* Encounter Date Diagnosis [...] exercise as directed, and reduce fat intake. Feb,Generalized anxiety disorder (ICD-10 - F41.1) No suicidal or homicidal ideations. Well controlled at this time with Buspar 30 mg BID and Sertraline 100 mg BID. Will continue current treatment plan at this time. Feb,Moderate episode of recurrent major depressive disorder (ICD-10 - F33.1) No suicidal or homicidal ideations. Well controlled at this time with Buspar 30 mg BID and Sertraline 100 mg BID. Will continue current treatment plan at this time. Feb,sthma (ICD-10 - J45.909) Well controlled at this time with Breo 200/25 mcg inhalation 1 puff daily. Will continue current treatment plan at this time. Consult notes reviewed from pulmonary. Continue to follow with pulmonary. Feb,Obstructive sleep apnea (adult) (pediatric) (ICD-10 - G47.33) Patient is very compliant with JOSE ANGEL BIPAP machine. Will continue current treatment plan at this time. Consult notes reviewed from sleep lab. Continue to follow with Dr. Sheldon at sleep lab. Feb,enign prostatic hyperplasia with lower urinary tract symptoms (ICD- 10 - N40.1) Currently well controlled with Finasteride 5 mg daily and Flomax 0.4 mg daily. Will continue this at this time. Consult notes reviewed. He is to continue to follow with urology. Feb,MI 36.0-36.9,adult (ICD-10 - Z68.36) Patient is advised to work on healthy diet choices and appropriate servings, weight control, regular exercise as directed, reduced fat intake, and salt avoidance. Patient voiced understanding of thisand agrees to this plan. Feb,Temporary low platelet count (ICD-10 - D69.6) Did have a mildy low platelet count with his last lab draw. Will recheck this. 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 He denies any symptoms related to this but we will go ahead and repeat the ultrasound to rule out abnormality. Further treatment pending results of testing. August,Pure hypercholesterolemia (ICD-10 - E78.00)(Migrated) Currently taking Zetia 10 mg daily and Atorvastatin 80 mg daily. UTD with lab work. Will continue current treatment plan. , Take medication as prescribed, keep follow up appointments, get any testingthat's been ordered done in a timely fashion. Do not smoke. Call if any questions or problems. For Cholesterol: Patient is advised to work on healthy diet choices and appropriate servings, weight control, regular exercise as directed, and reduce fat intake. [employer] Other Evaluation + Plan note Future Appointments Appointment Date:09/11/2022 09:15:00 AM Scheduled Provider:Miguel Martinez MD, Will Carmichael Location:[facility] Appointment Type:URO Office Visit Diagnostic Tests Pending * PSA Total 09/05/21 [facility] evaluation + Plan note Future Appointments Appointment Date:12/11/2022 08:15:00 AM Scheduled Provider: Location:[facility] Appointment Type:Urology [facility] Appointment Date:12/25/2022 03:00:00 PM Scheduled Provider: Location:[facility] Appointment Type:Urology FT Appointment Date:12/25/2022 03:45:00 PM Scheduled Provider: Location:[facility] Appointment Type:Urology FT [facility] evaluation + Plan note Future Appointments Appointment Date:05/06/2023 10:45:00 AM Scheduled Provider:Elia HUERTA MD Location:[facility] Appointment Type:URO Office Visit [facility] evaluation + Plan note Future Appointments Appointment Date:08/05/2023 09:30:00 AM Scheduled Provider:Elia HEURTA MD Location:[facility] Appointment Type:URO Office Visit [facility] evaluation + Plan note Future Appointments Appointment Date:10/14/2023 11:45:00 AM Scheduled Provider:Elia HUERTA MD Location:[facility] Appointment Type:URO Office Visit [facility] evaluation + Plan note Future Appointments Appointment Date:04/20/2024 11:15:00 AM Scheduled Provider:Elia HUERTA MD Location:[facility] Appointment Type:URO Office Visit [facility] evaluation + Plan note Future Appointments Appointment Date:10/20/2024 09:40:00 AM Scheduled Provider:PATRICA GARCIA PA-C Location:[facility] Appointment Type:URO Office Visit [facility] evaluation noteNo InformationNofitzgibbon [facility] Peixe Urbano Other Evalujikem noteNo assessment information available [facility] Work Phone: Evalucedvw note* Diagnosis Thrombocytopenia (HCC)- Primary Thrombocytopenia, unspecified Platelets decreased (HCC) Thrombocytopenia, unspecified [facility] Diagnosis Onset Date Resolution Status Abnormality of abdominal aorta acuteAllergic rhinitisacuteAsthmaacuteBasal cell carcinoma of skinacuteBPH (benign prostatic hyperplasia)acuteChronic maxillary sinusitisacuteGeneralized anxiety disorderacuteMixed hyperlipidemiaacuteModerate episode of recurrent major depressive disorderacuteObstructive sleep apnea (adult) (pediatric)acute Temporary low platelet vnptomxldvSFJ-[id number] [facility] Hospital Work Phone: Evaluation note* Diagnosis Onset Date Resolution Status Mixed hyperlipidemia nxacySyiwrshujukovijrxttorJBW-[id number] [facility] Work Phone: Evaluation note* Diagnosis Onset Date Resolution Status Establishing care with new doctorkallie for acuteMixed awwxyerabcxntbrplbdYrycdykibxxdtrufmjzqcJMQ-UOTP-[id number] [facility] Work Phone: Evaluation note* Diagnosis History of right knee joint replacement- Primary Acute pain of right knee documented in this encounter [facility] HealthcareEvaluation note* Diagnosis Onset Date Resolution Status Admit Date Arm paresthesia, left acuteApril 2024 11:30amChronic ITP (idiopathic thrombocytopenia)acuteApril 2024 11:30amElevated bilirubinacuteApril 2024 11:30amGeneralized anxiety disorderacuteApril 2024 11:30amMixed hyperlipidemiaacuteApril 2024 11:30amObstructive sleep apnea (adult) (pediatric)acuteApril 2024 11:30amPrediabetesacuteApril 2024 11:30amTension headacheacuteApril 2024 11:30amMedicare annual wellness visit, subsequentnoneactiveApril 2024 11:30am [facility] Work Phone: Evaluation note* Diagnosis History of right knee joint replacement- Primary documented in this encounter [facility] HealthcareEvaluation note* Diagnosis Unilateral primary osteoarthritis, left knee- Primary Acute pain of left knee documented in this encounter [facility] HealthcareHistory general Narrative - Reported* Type Description Date Medical History hyperlipidemia Medical Historyobstructive sleep apneaMedical Historyalcohol abuse, resolved Medical HistoryBPHMedical HistoryKNEE PAINMedical HistoryPrediabetesMedical HistoryRight Knee ReplacementSurgical Historysleep apnea [id number] HistoryRIGHT KNEE ARTHOSCOPY3-2015Surgical HistoryCATARACTS [id number] [id number] HistoryBASAL CELL CARCINOMA LEFT EAR5-2017Surgical HistorySINUS RZKAOWB37/2017Surgical Historytonsillectomy [facility] Other History general Narrative - Reported* Type Description Date Medical History hyperlipidemia Medical Historyobstructive sleep apneaMedical Historyalcohol abuse, resolved Medical HistoryBPHMedical HistoryKNEE PAINMedical HistoryPrediabetesMedical HistoryRight Knee ReplacementSurgical Historysleep apnea [id number] HistoryCATARACTS [id number] HistoryCOLONOSCOPY DR [id number] Surgical HistoryBASAL CELL CARCINOMA LEFT EAR5-2017Surgical HistoryRIGHT KNEE ARTHOSCOPY3-2014Surgical HistorySINUS FQJSFWL01/2017Surgical History tonsillectomySurgical HistoryR total knee replacement.2020Hospitalization HistoryCopious Other History general Narrative - Reported* Type Description Date Medical History hyperlipidemia Medical Historyobstructive sleep apneaMedical Historyalcohol abuse, resolved Medical HistoryBPHMedical HistoryKNEE PAINMedical HistoryPrediabetesMedical HistoryRight Knee ReplacementMedical HistoryType II diabetesSurgical History sleep apnea [id number] HistoryCATARACTS [id number] History COLONOSCOPY DR [id number] HistoryBASAL CELL CARCINOMA LEFT EAR5-2017 Surgical HistoryRIGHT KNEE ARTHOSCOPY3-2015Surgical HistorySINUS FUWPKNW54/2017 Surgical HistorytonsillectomySurgical HistoryR total knee replacement.2020 Hospitalization HistoryCopious Other Hospital course Narrative No data available for this section [facility] Discharge instructions No data available for this section [facility] Hospital Discharge instructionsAmbulatory Orders* Referral to Pulmonology Location: None Selected [facility] Work Phone: Hospital Discharge instructionsAmbulatory Orders* Referral to Hematology Time Frame: 02/06/24, Location: None [facility] Work Phone: Progress note No data available for this section [facility] reason for referral (narrative)No reason for referral information availableOhiohealth [facility]field [facility] Work Phone: Summary Purpose Family History Relationship Condition Age at Onset Recorded Date/T kareem father Unknown grandparentDeceasedUnknownNot SpecifiedMalignant neoplasmUnknownDeceasedUnknown sisterDeceasedUnknownMalignant neoplasmUnknownMalignant neoplasm of boneUnknown Relationship Condition Age at Onset Recorded Date/T kareem father Unknown grandparentDeceasedUnknownmotherMalignant neoplasmUnknownDeceasedUnknownsister DeceasedUnknownMalignant neoplasmUnknownMalignant neoplasm of boneUnknown Relationship Condition Age at Onset Recorded Date/T kareem father Unknown grandparentDeceasedUnknownmotherMalignant neoplasmUnknownDeceasedUnknown Malignant neoplasm of breastUnknownsisterDeceasedUnknownMalignant neoplasm UnknownMalignant neoplasm of boneUnknown Advance Directives Advance Directive Response Recorded Date/ Time Advance Directives No May 19, 2018 2:53pm Advance Directive Response Recorded Date/ Time Advance Directives No May 19, 2018 1:53pm Reason for Referral Reason * 03/05 Refer t o urology, would like to see someone other than Dr. Rivera (he is a current patient of Dr. Rivera), would like to see Dr. Huerta or Dr. Rogers Diagnosis 1 Benign prostatic hyp erplasia with lower urinary tract symptoms (N40.1) Referral Organization [facility] Referring Provider First Name Patrica Referring Provider Last Name Anthony Referring Provider Specialty Nurse Pract itioner Referred Organization [facility] Referred Provider Eduardo Rogers Referred Address [address] [facility] [address],[place], [place],[address] Referred Provider Specialty Urology Referral Priority Routine General Notes KaranDaisy meek Jany 11:04:12 AM >referral received and faxed Chief Complaint and Reason for Visit Chief Complaint Sleep apnea annual f ollow up Chief Complaint See order Chief Complaint See order Surgical Clearance 3 month follow upReason for VisitAbnormality of abdominal aorta Allergic rhinitis Asthma Basal cell carcinoma of skin BPH (benign prostatic hyperplasia) Chronic maxillary sinusitis Generalized anxiety disorder Mixed hyperlipidemia Moderate episode of recurrent major depressive disorder Obstructive sleep apnea (adult) (pediatric) Temporary low platelet count [id number] Reason for Visit Mixed hyperlipidemia Thrombocytopenia [id number] Reason for Visit Establishing care wi th new doctor, encounter for Mixed hyperlipidemia Thrombocytopenia [id number] Chief Complaint NEW - Platelets 142 Platelets 142Reason for VisitEstablishing care with new doctor, encounter for Mixed hyperlipidemia Thrombocytopenia [id number] Chief Complaint Admit Date Amb Documentation July 22, 2024 10:2 3am MAWV July 27, 2024 11: 30am Reason for Visit Admit Date Arm paresthesia, left July 27, 2024 1 1:30am Chronic ITP (idiopathic thrombocytopenia ) July 27, 2024 11:30am Elevated bilirubin July 27, 2024 11: 30am Generalized anxiety disorder July 27, 2024 11:30am Mixed hyperlipidemia July 27, 2024 11 :30am Obstructive sleep apnea (adult) (pediatr ic) July 27, 2024 11:30am Prediabetes July 27, 2024 11: 30am Tension headache July 27, 2024 11: 30am Medicare annual wellness visit, subseque nt July 27, 2024 11:30am Chief Complaint Admit Date Amb Documentation July 22, 2024 10:2 3am MAWV July 27, 2024 11: 30am R20.2 July 27, 2024 12: 35pm Reason for Visit Admit Date Arm paresthesia, left July 27, 2024 1 1:30am Chronic ITP (idiopathic thrombocytopenia ) July 27, 2024 11:30am Elevated bilirubin July 27, 2024 11: 30am Generalized anxiety disorder July 27, 2024 11:30am Obstructive sleep apnea (adult) (pediatr ic) July 27, 2024 11:30am Prediabetes July 27, 2024 11: 30am Tension headache July 27, 2024 11: 30am Medicare annual wellness visit, subseque nt July 27, 2024 11:30am Chief Complaint Admit Date Amb Documentation July 22, 2024 10:2 3am MAWV July 27, 2024 11: 30am R20.2 July 27, 2024 12: 35pm Neck Pain August 14, 2024 9:53am r20.2 August 19, 2024 9:53am Chief Complaint Admit Date Amb Documentation July 22, 2024 10:2 3am MAWV July 27, 2024 11: 30am R20.2 July 27, 2024 12: 35pm r20.2 August 19, 2024 9:53am Neck Pain September 16, 2024 9:45a m 6mth f/u r/s from 09/09September 16, 2024 3: 27pm Platelets 142 September 16, 2024 3:29p m Reason for Visit Admit Date Arm paresthesia, left July 27, 2024 1 1:30am Chronic ITP (idiopathic thrombocytopenia ) July 27, 2024 11:30am Elevated bilirubin July 27, 2024 11: 30am Generalized anxiety disorder July 27, 2024 11:30am Obstructive sleep apnea (adult) (pediatr ic) July 27, 2024 11:30am Prediabetes July 27, 2024 11: 30am Tension headache July 27, 2024 11: 30am Medicare annual wellness visit, subseque nt July 27, 2024 11:30am Chronic ITP (idiopathic thrombocytopenia ) September 16, 2024 3:27pm Elevated bilirubin September 16, 2024 3:27p m Chief Complaint Admit Date r20.2 August 19, 2024 9:53am Neck Pain September 16, 2024 9:45a m 6mth f/u r/s from 09/09September 16, 2024 3: 27pm Platelets 142 September 16, 2024 3:29p m eye discharge, swollen, itchy September 24, 2024 11:47am 2 month follow up September 28, 2024 11:3 7am JOSE ANGEL/ANNUAL Hortensia 23rd, 2025 9:32 am Reason for Visit Admit Date Chronic ITP (idiopathic thrombocytopenia ) September 16, 2024 3:27pm Elevated bilirubin September 16, 2024 3:27p m Bacterial conjunctivitis of right eye Ju ne 2024 11:47am Cervical spine arthritis September 28, 2024 11:37am Insomnia September 28, 2024 11:3 7am Left carpal tunnel syndrome September 28, 2 025 11:37am Obstructive sleep apnea (adult) (pediatr ic) September 28, 2024 11:37am Tension headache September 28, 2024 11:3 7am Type 2 diabetes mellitus wit hout complication, without long-term current us September 28, 2024 11:37am Cyst September 28, 2024 11:3 7am Asthma November 04, 2024 9:32 am BMI 34.0-34.9,adult November 04, 2024 9:32 am Generalized anxiety disorder November 04, 2024 9:32am Obstructive sleep apnea (adult) (pediatr ic) November 04, 2024 9:32am Chief Complaint Admit Date eye discharge, swollen, itchy September 24, 2024 11:47am 2 month follow up September 28, 2024 11:3 7am JOSE ANGEL/ANNUAL November 04, 2024 9:32 am Reason for Visit Admit Date Bacterial conjunctivitis of right eye Ju ne 2024 11:47am Cervical spine arthritis September 28, 2024 11:37am Insomnia September 28, 2024 11:3 7am Left carpal tunnel syndrome September 28, 2 025 11:37am Obstructive sleep apnea (adult) (pediatr ic) September 28, 2024 11:37am Tension headache September 28, 2024 11:3 7am Type 2 diabetes mellitus wit hout complication, without long-term current us September 28, 2024 11:37am Cyst September 28, 2024 11:3 7am Asthma November 04, 2024 9:32 am BMI 34.0-34.9,adult November 04, 2024 9:32 am Generalized anxiety disorder November 04, 2024 9:32am Obstructive sleep apnea (adult) (pediatr ic) November 04, 2024 9:32am Additional Source Comments (unrecognized sect ion and content) No Status Records FoundNo Status Records FoundNo Status Records FoundNo Status Records FoundNo Status Records FoundNo Status Records FoundNo Status Records Found INFORMATION SOURCE (unrecogn ized section and content) DATE CREATED AUTHOR 09/24/2020 [facility] DATE CREATED AUTHOR AUTHOR'S ORGANIZ ATION 02/21/2023 [facility] DATE CREATED AUTHOR AUTHOR'S ORGANIZ ATION 04/25/2024 [facility] DATE CREATED AUTHOR AUTHOR'S ORGANIZ ATION 11/12/2024 [facility] DATE CREATED AUTHOR AUTHOR'S ORGANIZ ATION 12/26/2024 [facility] DATE CREATED AUTHOR AUTHOR'S ORGANIZ ATION 02/12/2025 [facility] DATE CREATED AUTHOR AUTHOR'S ORGANIZ ATION 02/14/2025 [facility] EPIC REASON FOR VISIT (unrecogniz ed section and content) ReasonCommentsPatient UpdateReasonCommentsThrombocytopeniaFollow upReason CommentsFollow-upReasonCommentsPain Care Teams (unrecognized sec tion and content) Team Status: Active Member Role Status Dates Claire Sanchez DO Primary Care Provider Active Team Status: Inactive Member Role Status Dates Claire Sanchez DO Primary Care Provider Active Start: September 24, 2024 End: September 24, 2024Claire Sanchez DOAttbeatriz ProviderActiveStart: September 24, 2024 End: September 24, 2024 Team Status: Inactive Member Role Status Dates Claire Sanchez DO Primary Care Provider Active Start: September 28, 2024 End: September 28, 2024Claire Sanchez DOAttbeatriz ProviderActiveStart: September 28, 2024 End: September 28, 2024 Team Status: Inactive Member Role Status Dates Genaro Sheldon MD Attending Provider Active S tart: November 04, 2024 End: November 04, 2024[facility] Care ProviderActiveStart: November 04, 2024 End: November 04, 2024 Team Status: Active Member Role Status Dates Claire Sanchez DO Primary Care Provider Active Start: July 22, 2024 Melanie MeadowsAttbeatriz ProviderActiveStart: July 22, 2024 Team Status: Inactive Member Role Status Dates Claire Sanchez DO Primary Care Provid er, Attending Provider Active Start: July 27, 2024 End: July 27, 2024 Team Status: Active Member Role Status Dates Patrica Cruz DNP Primary Care Provider Active Team Status: Inactive Member Role Status Dates Patrica Cruz DNP Primary Care Provider Active Nathalie Nuñez ProviderActive Team Status: Inactive Member Role Status Dates [...] 2023 End: July 08, 2023 Team Status: Inactive Member Role Status Dates Claire Sanchez , DO Primary Care Provid er, Attending Provider Active Start: January 24, 2024 End: January 24, 2024 Team Status: Active Member Role Status Dates Claire Sanchez , DO Primary Care Provid er, Attending Provider Active Start: January 31, 2024 Team Status: Active Member Role Status Dates Claire Sanchez , DO Primary Care Provid er, Attending Provider Active Start: February 06, 2024 Team Status: Inactive Member Role Status Dates Claire Pedroleona , DO Primary Care Provid er, Referring Provider Active Start: February 19, 2024 End: February 19, 2024Mickey Perazaending ProviderActiveStart: February 19, 2024 End: February 19, 2024 Team Status: Active Member Role Status Dates Claire Pedroleona , DO Primary Care Provid er, Referring Provider Active Start: February 19, 2024 MhMickey Perazaending ProviderActiveStart: February 19, 2024 Team MemberRelationshipSpecialtyStart DateEnd Date Patrica Cruz NP [address] [facility] [place] [address] [facility]09/25/22Team MemberRelationshipSpecialtyStart DateEnd Date Patrica Cruz, TAN [address] [facility] [place] [id number] PCP - General09/25/22 Team Status: Active Member Role Status Dates Claire Pedroleona , DO Primary Care Provid er, Attending Provider Active Start: August 14, 2024 Team Status: Inactive Member Role Status Dates Claire Pedroleona , DO Primary Care Provid er, Attending Provider Active Start: August 19, 2024 End: August 19, 2024 Team Status: Active Member Role Status Dates Claire Sanchez , DO Primary Care Provid er, Other Provider Active Start: August 19, 2024 Armani Vasquez MDAttending ProviderActiveStart: August 19, 2024 Team Status: Active Member Role Status Dates Claire Pedroleona , DO Primary Care Provid er, Attending Provider Active Start: September 16, 2024 Team Status: Inactive Member Role Status Dates Claire Sanchez , DO Primary Care Provider Active Start: September 16, 2024 End: September 16, 2024d Yaminiser Sen-Eliana , MDAttending ProviderActiveStart: September 16, 2024 End: September 16, 2024 Team Status: Active Member Role Status Dates Claire Vasquezleona , DO Primary Care Provid er, Referring Provider Active Start: September 16, 2024 d Yaser Al-Marraadryan , MDAttending ProviderActiveStart: September 16, 2024 Team Status: Active Member Role Status Dates Claire Sanchez , DO Primary Care Provider Active Start: August 19, 2024 Claire Sanchez DOOther ProviderActiveStart: August 19, 2024 Armani Vasquez MDAttending ProviderActiveStart: August 19, 2024 Team Status: Active Member Role Status Dates Claire Sanchez , DO Primary Care Provider Active Start: September 16, 2024 Claire Sanchez DOAttending ProviderActiveStart: September 16, 2024 Team Status: Active Member Role Status Dates Claire Sanchez , DO Primary Care Provider Active Start: September 16, 2024 CR Calvoeferring ProviderActiveStart: September 16, 2024 Mhd Cherrie Lara , MDAttending ProviderActiveStart: September 16, 2024 Team MemberRelationshipSpecialtyStart DateEnd Date Patrica Cruz NP PCP - General09/25/22Team MemberRelationshipSpecialtyStart DateEnd Date Patrica Cruz NP [address] [facility] [place] [id number] Nurse Jssjvgiglrxa23/20/25Team MemberRelationshipSpecialtyStart DateEnd Date Patrica Cruz NP [address] [facility] [place] [id number] Nurse Pmnmtkxpmyci82/20/25 Goals (unrecognized section and content) Goals may be documented in a n alternate section Source Comments (unrecognize d section and content) In the event this informatio n is protected by the Federal Confidentiality of Alcohol and Drug Abuse Patient Records regulations: The Federal rules restrict any use of the information to criminally investigate or prosecute any alcohol or drug abuse patient.[facility] the event this information is protected by the Federal Confidentiality of Alcohol and Drug Abuse Patient Records regulations: The Federal rules restrict any use of the information to criminally investigate or prosecute any alcohol or drug abuse patient.[facility] the event this information is protected by the Federal Confidentiality of Alcohol and Drug Abuse Patient Records regulations: The Federal rules restrict any use of the information to criminally investigate or prosecute any alcohol or drug abuse patient.[facility] FOR RECORDS PERTAINING TO PATIENTS [...] BE BASED ON THE PRIMARY CLINICAL RECORDS. [facility] [employer] [facility]. provides no warranty or guarantee of the accuracy or completeness of information in this document.
--- NOTE | 2025-03-15 09:45 | CT_ITS ---
The [address] [address] Patient Name: RACHEL HENRY MRN: [id number] date: 1950 Sex: M Assigned Patient Location: CT Current Patient Location: CT Accession/Order Number: [id number] Exam Date: 03/15/2025 09:40 Report Date: 03/15/2025 10:26 At the request of: HUMPHREY GONZALEZ DO Procedure: CT chest wo con CT CHEST WITHOUT CONTRAST COMPARISON: 08/18/2024 CLINICAL DATA: Follow-up lung mass Spiral axial unenhanced images were obtained through the chest. Images were reviewed using both narrow and wide window settings. This CT exam was performed using one or more following dose reduction techniques: Automated exposure control, adjustment of the mA and/or kV according to patient size, or use of iterative reconstruction technique. The heart is normal size. No pericardial effusion is present. There is minor coronary disease. No aortic aneurysm is present. Minimal plaque at the aortic arch and descending aorta. No enlarged lymph nodes are identified. There is subtle S-shaped scoliotic curvature as well as endplate spurring at the spine. There is minor interstitial thickening. Continued basilar atelectasis and/or scarring is seen. No residual nodularity is seen at the lingula. There is no developing consolidation, pleural effusion, nodularity or pneumothorax. Limited imaging through the upper abdomen shows diverticulosis of the splenic flexure. CT/CT chest wo con IMPRESSION: ATELECTASIS AND/OR SCARRING. RESOLUTION OF NODULARITY AT THE LINGULA. Impression dictated by: Naye Watt M.D. 03/15/2025 10:26 AM Dictation Location: [place] [address] Electronically authenticated by: [id number] Y Date: 03/15/2025 10:26
== END 2025-03-15 09:32 | disposition home or self-care (01) ==
LOC: CT 09:31
PROVIDERS: PCP Nurse Practitioner Family; Visit Provider Internal Medicine
DX: J45.30 Mild persistent asthma, uncomplicated (principal); J98.11 Atelectasis
CPT/HCPCS: 71250